=== PATIENT | female | born 1950 | race Caucasian/White ===

== ENCOUNTER 2016-07-16 12:18 | Inpatient (IN) | payer MEDICARE, BC ==
[~2016-07-16] VITALS: Ht 162.6 cm; Wt 111.2 kg
[2016-07-16] MEDS: IPRATRPIUM/ALBUTEROL 0.5/2.5MG 3 ML NEBU. NEB SCH ×3 (12:00→20:01)
[~2016-07-16 12:18] MED LIST: ACET325T9 PO; ALBU1.25 NEB; ALBU8.5H8 INH; ARIP20TA5 PO; ARIP2TAB35 PO; ARIP5TAB13 PO; ASCO500C PO; ASPI-630 PO; ATOR10TA PO; BREO ELLIPTA PO; BRINTELLIX 20 MG PO; CALC1TAB21 PO; CEFU250S PO; CHOL5000 PO; CIPR500T94 PO; CYAN10005 PO; CYCL-331 PO; DIAZ5TAB4 PO; DICL112S2 TP; DILANTIN PO; DULO60CA6 PO; EZET10TA18 PO; FAMO-63 PO; FLUT10.6 IH; FLUT100D IH; FLUT12AE IH; FLUT1BLS IH; FORM20VI IH; FORM20VI NEB; FURO40TA4 PO; GABA600T14 PO; GABA600T2 PO; HYDR-2762 PO; HYDR1TAB26 PO; HYDR40TA PO; IBUP400T18 PO; IODINE PO; MAG355OR17 PO; MAGN2400 PO; MECL25TA3 PO; METH10TA2 PO; METH29OI TP; MIRT15TA PO; MONT10TA6 PO; MONT10TA9 PO; PANT40TA3 PO; PHEN100C PO; PHEN50TA PO; POTA10TA31 PO; POTA20TA4 PO; PRAV20TA2 PO; PRED-220 PO; PRIM50TA PO; RABE20TA18 PO; SCOP1PAT TD; TRAM50TA PO; TRAZ50TA15 PO; UBID1CAP41 PO; VITA0.4T7 PO; ZOLP5TAB PO
[2016-07-16] MEDS: DOXYCYCLINE HYCLATE 100 MG TABLET PO SCH ×2 (12:45→20:45)
[2016-07-16 12:57] LABS: BASO % 1 % (0-3); EOS # 0.2 x10^3/uL (0.0-0.7); EOS % 4 % (0-3); HEMATOCRIT 37.3 % (36.0-47.0); HEMOGLOBIN 12.8 g/dL (12.0-15.5); LYMPH % 39 % (24-48); MEAN CORPUSCULAR HEMOGLOBIN 30 pg (25-35); MEAN CORPUSCULAR HGB CONC 34 g/dL (31-37); MEAN CORPUSCULAR VOLUME 88 fL (79-100); MONO # 0.5 x10^3/uL (0.0-1.1); MONO % 9 % (0-9); NEUT # 2.5 x10^3uL (1.8-7.7); NEUT % 47 % (31-73); PLATELET COUNT 134 x10^3/uL (140-400); RED BLOOD COUNT 4.24 x10^6/uL (3.50-5.40); RED CELL DISTRIBUTION WIDTH 15.7 % (11.5-14.5); WHITE BLOOD COUNT 5.2 x10^3/uL (4.0-11.0)
[2016-07-16] MEDS: methylPREDNISolone SOD SUCC PF 40 MG/ML VIAL. IV SCH ×2 (12:59→20:44)
[2016-07-16 13:10] LABS: ALBUMIN 3.5 g/dL (3.4-5.0); ALBUMIN/GLOBULIN RATIO 0.8 (1.0-1.7); CALCIUM 8.7 mg/dL (8.5-10.1); CREATININE 0.8 mg/dL (0.6-1.0); POTASSIUM 3.7 mmol/L (3.5-5.1); TOTAL BILIRUBIN 0.4 mg/dL (0.2-1.0); TOTAL PROTEIN 7.9 g/dL (6.4-8.2)
[2016-07-16 13:11] VITALS: BP 146/71
[2016-07-16 13:12] VITALS: BP 146/71
[2016-07-16] MEDS ORDERED: CYCLOBENZAPRINE 10 MG TABLET. PO PRN (13:15)
[2016-07-16] MEDS ORDERED: MECLIZINE 25 MG TABLET PO PRN (13:15)
[2016-07-16] MEDS ORDERED: ALBUTEROL SULFATE 8GM INHALER. INH PRN (13:15)
[2016-07-16 13:38] LABS: BACTERIA,URINE FEW /HPF (0-FEW); BILIRUBIN,URINE NEG (NEG); CLARITY,URINE HAZY; COLOR,URINE AMBER; GLUCOSE,URINE 100 mg/dL (NEG); NITRITE,URINE NEG (NEG); SQUAMOUS EPITHELIAL CELL,UR FEW /LPF; UROBILINOGEN,URINE 0.2 mg/dL (0.2 mg/dL)
[2016-07-16 13:41] LABS: BGAS PH 7.4 (7.35-7.45)
[2016-07-16] MEDS ORDERED: TIOT4MIS5 IH (13:44)
[2016-07-16] MEDS ORDERED: PRIMIDONE 50 MG TABLET PO SCH (14:00)
[2016-07-16] MEDS ORDERED: CALCIUM CARBONATE PO SCH (14:00)
[2016-07-16] MEDS ORDERED: SIMETHICONE PO SCH (14:00)
[2016-07-16] MEDS: HYDROcodone/APAP 7.5/325MG 1 TAB TABLET PO PRN (14:13)
[2016-07-16] MEDS ORDERED: ALBUTEROL SULFATE 2.5 MG/3 ML NEBU. NEB PRN (14:15)
[2016-07-16 14:56] VITALS: BP 146/71
--- NOTE | 2016-07-16 15:10 | RAD ---
EXAM: CHEST 1 VIEW History: Increased dyspnea Comparison: 01/17/2016 TECHNIQUE: Single portable radiograph of the chest FINDINGS: The cardiac silhouette is unremarkable. Minimal left lung base airspace opacity likely atelectasis or infiltrate. Impression: Minimal left lung base airspace opacity likely atelectasis or infiltrate.
[2016-07-16] MEDS: diazePAM 5 MG TABLET PO SCH ×2 (18:18→20:45)
[2016-07-16 18:44] VITALS: BP 124/66
[2016-07-16] MEDS: BUDESONIDE 0.5 MG/2 ML NEBU NEB SCH (20:01)
[2016-07-16] MEDS: GABAPENTIN 300 MG CAPSULE. PO SCH (20:45)
[2016-07-16] MEDS: PHENYTOIN SODIUM EXTENDED 100 MG CAPSULE PO SCH (20:45)
[2016-07-16] MEDS: MONTELUKAST 10 MG TABLET. PO SCH (20:46)
[2016-07-16] MEDS: POTASSIUM CHLORIDE 10 MEQ TABLET.ER. PO SCH (20:46)
[2016-07-16] MEDS: ARIPiprazole 5 MG TABLET PO SCH (20:46)
[2016-07-16] MEDS: PRIMIDONE 50 MG TABLET PO SCH (20:46)
[2016-07-16] MEDS: EZETIMIBE 10 MG TABLET PO SCH (20:46)
[2016-07-16] MEDS: MIRTAZAPINE 15 MG TABLET PO SCH (20:46)
[2016-07-16] MEDS ORDERED: FAMOTIDINE 20 MG TABLET PO SCH (21:00)
[2016-07-16] MEDS ORDERED: MIRTAZAPINE 15 MG TABLET PO SCH (21:00)
[2016-07-16] MEDS ORDERED: ZOLPIDEM 5 MG TABLET. PO SCH (21:00)
[2016-07-16] MEDS ORDERED: NON FORMULARY ITEM (Fluticasone Propionate (Flovent 110MCG Hfa) 2 PUFF) IH SCH (21:00)
[2016-07-16 23:21] VITALS: BP 117/83
[2016-07-17] MEDS: IPRATRPIUM/ALBUTEROL 0.5/2.5MG 3 ML NEBU. NEB SCH ×4 (05:09→20:18)
[2016-07-17] MEDS: methylPREDNISolone SOD SUCC PF 40 MG/ML VIAL. IV SCH ×3 (05:51→21:02)
[2016-07-17 06:15] VITALS: BP 111/70
[2016-07-17 06:48] LABS: BASO % 0 % (0-3); EOS % 1 % (0-3); HEMATOCRIT 36.5 % (36.0-47.0); HEMOGLOBIN 12.5 g/dL (12.0-15.5); LYMPH % 34 % (24-48); MEAN CORPUSCULAR HEMOGLOBIN 30 pg (25-35); MEAN CORPUSCULAR HGB CONC 34 g/dL (31-37); MEAN CORPUSCULAR VOLUME 88 fL (79-100); MONO # 0.4 x10^3/uL (0.0-1.1); MONO % 6 % (0-9); NEUT # 3.5 x10^3uL (1.8-7.7); NEUT % 59 % (31-73); PLATELET COUNT 132 x10^3/uL (140-400); RED BLOOD COUNT 4.14 x10^6/uL (3.50-5.40); RED CELL DISTRIBUTION WIDTH 16.4 % (11.5-14.5); WHITE BLOOD COUNT 5.9 x10^3/uL (4.0-11.0)
[2016-07-17 07:01] LABS: CALCIUM 8.8 mg/dL (8.5-10.1); CREATININE 0.8 mg/dL (0.6-1.0); POTASSIUM 3.8 mmol/L (3.5-5.1)
[2016-07-17] MEDS: HYDROcodone/APAP 7.5/325MG 1 TAB TABLET PO PRN ×3 (08:33→23:44)
[2016-07-17] MEDS: FUROSEMIDE 40 MG/4 ML VIAL IVP SCH (08:33)
[2016-07-17] MEDS: diazePAM 5 MG TABLET PO SCH ×4 (08:33→21:04)
[2016-07-17] MEDS: PANTOPRAZOLE 40 MG TABLET. PO SCH (08:34)
[2016-07-17] MEDS: ASPIRIN 81 MG TAB.CHEW PO SCH (08:34)
[2016-07-17] MEDS: POTASSIUM CHLORIDE 10 MEQ TABLET.ER. PO SCH ×2 (08:34→21:03)
[2016-07-17] MEDS: GABAPENTIN 300 MG CAPSULE. PO SCH ×3 (08:34→21:03)
[2016-07-17] MEDS: PRAVASTATIN 20 MG TABLET. PO SCH (08:34)
[2016-07-17] MEDS: DOXYCYCLINE HYCLATE 100 MG TABLET PO SCH (08:34)
[2016-07-17] MEDS: PRIMIDONE 50 MG TABLET PO SCH ×4 (08:34→21:04)
[2016-07-17] MEDS: DICLOFENAC SODIUM 1% TOPICAL GEL 100GM TUBE. TP SCH ×2 (08:35→21:03)
[2016-07-17] MEDS ORDERED: GABAPENTIN PO SCH (09:00)
[2016-07-17] MEDS ORDERED: NON FORMULARY ITEM (Fluticasone/Vilanterol (Breo Ellipta 200-25 Mcg INH) 1 PUFF) IH SCH (09:00)
[2016-07-17] MEDS ORDERED: MONTELUKAST 10 MG TABLET. PO SCH (09:00)
[2016-07-17] MEDS ORDERED: VORTIOXETINE PO SCH (09:00)
[2016-07-17] MEDS ORDERED: POTASSIUM CHLORIDE 20 MEQ TABLET.ER. PO SCH (09:00)
[2016-07-17] MEDS ORDERED: HYDROCODONE BITARTRATE 40 MG PO SCH (09:00)
[2016-07-17] MEDS ORDERED: ARIPiprazole 5 MG TABLET PO SCH (09:00)
[2016-07-17] MEDS ORDERED: EZETIMIBE 10 MG TABLET PO SCH (09:00)
[2016-07-17] MEDS: BUDESONIDE 0.5 MG/2 ML NEBU NEB SCH (09:42)
[2016-07-17] MEDS ORDERED: ENOXAPARIN 30 MG/0.3 ML DISP.SYRIN. SQ SCH ×2 (10:15→21:00)
[2016-07-17] MEDS ORDERED: IV NORMAL SALINE 250ML 250 ML ONE (10:32)
[2016-07-17 10:42] VITALS: BP 132/72
[2016-07-17] MEDS ORDERED: DEXTROSE 50% 25 GM / 50ML DISP.SYRIN. IV PRN (11:45)
[2016-07-17] MEDS: INSULIN ASPART 300 UNITS/3 ML INSULN.PEN SQ SCH ×3 (12:35→21:00)
[2016-07-17 15:35] VITALS: BP 126/63
[2016-07-17 18:54] VITALS: BP 118/67
[2016-07-17] MEDS ORDERED: BUDESONIDE 0.5 MG/2 ML NEBU ONE (20:13)
[2016-07-17] MEDS: EZETIMIBE 10 MG TABLET PO SCH (21:03)
[2016-07-17] MEDS: MIRTAZAPINE 15 MG TABLET PO SCH (21:03)
[2016-07-17] MEDS: PHENYTOIN SODIUM EXTENDED 100 MG CAPSULE PO SCH (21:03)
[2016-07-17] MEDS: ARIPiprazole 5 MG TABLET PO SCH (21:04)
[2016-07-17] MEDS: MONTELUKAST 10 MG TABLET. PO SCH (21:05)
[2016-07-17 22:52] VITALS: BP 112/65
--- NOTE | 2016-07-17 23:54 | PN ---
DATE: SUBJECTIVE: The patient is a 65-year-old female with exacerbation of COPD, possible pneumonia, right lower lobe. She is still very short of breath, wheezing quite a bit. She is on IV steroids. Sugars are starting to go up and she has been monitored on a sliding scale. D-dimer was unremarkable as was her UA. The patient's x-ray did show a pneumonic process in the right lower lobe. OBJECTIVE: GENERAL: Otherwise, the patient is alert and oriented. LUNGS: Diminished throughout with expiratory wheezes. CARDIOVASCULAR: Regular sinus rhythm. ABDOMEN: Protuberant. EXTREMITIES: No clubbing, cyanosis or edema. NEUROLOGIC: Intact. We will go ahead and make further evaluation on her as indicated. IMPRESSION: Pneumonia, exacerbation of chronic obstructive pulmonary disease and morbid obesity. PLAN: As above, continue to monitor the patient, accordingly make further IV antibiotic therapy and alike. She also had positive lactic acids ____. She is on Rocephin and Levaquin for that and we will continue to monitor her carefully along with her vital signs. SCOOTER HOPKINS MD DR: NGOZI/elisa JOB#: [id number] / [id number]
[2016-07-18 05:07] VITALS: BP 133/81
[2016-07-18] MEDS: methylPREDNISolone SOD SUCC PF 40 MG/ML VIAL. IV SCH ×2 (05:19→20:45)
[2016-07-18] MEDS: IPRATRPIUM/ALBUTEROL 0.5/2.5MG 3 ML NEBU. NEB SCH ×4 (05:44→20:29)
[2016-07-18 06:21] LABS: BASO % 0 % (0-3); EOS # 0.1 x10^3/uL (0.0-0.7); EOS % 1 % (0-3); HEMATOCRIT 38.3 % (36.0-47.0); HEMOGLOBIN 13.1 g/dL (12.0-15.5); LYMPH # 2.2 x10^3/uL (1.0-4.8); LYMPH % 32 % (24-48); MEAN CORPUSCULAR HEMOGLOBIN 31 pg (25-35); MEAN CORPUSCULAR HGB CONC 34 g/dL (31-37); MEAN CORPUSCULAR VOLUME 90 fL (79-100); MONO # 0.3 x10^3/uL (0.0-1.1); MONO % 5 % (0-9); NEUT # 4.1 x10^3uL (1.8-7.7); NEUT % 61 % (31-73); PLATELET COUNT 128 x10^3/uL (140-400); RED BLOOD COUNT 4.25 x10^6/uL (3.50-5.40); RED CELL DISTRIBUTION WIDTH 16.4 % (11.5-14.5); WHITE BLOOD COUNT 6.7 x10^3/uL (4.0-11.0)
[2016-07-18 06:30] LABS: CALCIUM 8.6 mg/dL (8.5-10.1); CREATININE 0.8 mg/dL (0.6-1.0); POTASSIUM 4.4 mmol/L (3.5-5.1)
[2016-07-18] MEDS: DICLOFENAC SODIUM 1% TOPICAL GEL 100GM TUBE. TP SCH ×2 (08:15→20:48)
[2016-07-18] MEDS: FUROSEMIDE 40 MG/4 ML VIAL IVP SCH (08:16)
[2016-07-18] MEDS: diazePAM 5 MG TABLET PO SCH ×4 (08:17→20:46)
[2016-07-18] MEDS: GABAPENTIN 300 MG CAPSULE. PO SCH ×3 (08:18→20:46)
[2016-07-18] MEDS: ASPIRIN 81 MG TAB.CHEW PO SCH (08:18)
[2016-07-18] MEDS: PANTOPRAZOLE 40 MG TABLET. PO SCH (08:18)
[2016-07-18] MEDS: POTASSIUM CHLORIDE 10 MEQ TABLET.ER. PO SCH ×2 (08:18→20:46)
[2016-07-18] MEDS: PRAVASTATIN 20 MG TABLET. PO SCH (08:19)
[2016-07-18] MEDS: PRIMIDONE 50 MG TABLET PO SCH ×4 (08:19→20:46)
[2016-07-18] MEDS: INSULIN ASPART 300 UNITS/3 ML INSULN.PEN SQ SCH ×4 (08:25→20:49)
[2016-07-18] MEDS ORDERED: BUDESONIDE 0.5 MG/2 ML NEBU ONE (09:36)
[2016-07-18 10:48] VITALS: BP 136/73
[2016-07-18] MEDS: levoFLOXacin 500 MG TABLET PO SCH (10:54)
[2016-07-18 13:30] VITALS: BP 127/92
[2016-07-18 14:43] VITALS: BP 120/71
[2016-07-18 17:28] VITALS: BP 117/72
[2016-07-18 20:34] VITALS: BP 128/80
[2016-07-18] MEDS: MONTELUKAST 10 MG TABLET. PO SCH (20:46)
[2016-07-18] MEDS: PHENYTOIN SODIUM EXTENDED 100 MG CAPSULE PO SCH (20:46)
[2016-07-18] MEDS: EZETIMIBE 10 MG TABLET PO SCH (20:47)
[2016-07-18] MEDS: MIRTAZAPINE 15 MG TABLET PO SCH (20:47)
[2016-07-18] MEDS: ARIPiprazole 5 MG TABLET PO SCH (20:47)
--- NOTE | 2016-07-18 23:10 | PN ---
DATE: SUBJECTIVE: The patient is in with pneumonia and exacerbation of COPD, is resting fairly comfortably, making fairly good progress, feels better. OBJECTIVE: VITAL SIGNS: Blood pressure 136/70, respiratory rate 20, pulse 90 and afebrile. GENERAL: The patient is alert and oriented x 3. Speech fluent, spontaneous, appropriate. Cranial nerves 2-12 grossly intact. LUNGS: Diminished throughout, some coarse breath sounds, but markedly improved. CARDIOVASCULAR: Regular sinus rhythm, S1, S2. ABDOMEN: Soft, nontender, protuberant. EXTREMITIES: No clubbing, cyanosis. Trace edema. NEUROLOGIC: Intact. PLAN: We will taper down on Solu-Medrol. We will continue on IV antibiotic therapy. IMPRESSION: Sepsis, pneumonia, exacerbation of chronic obstructive pulmonary disease, acute respiratory failure, hypoxia, type 2 diabetes exacerbated with steroids. SCOOTER HOPKINS MD DR: NGOZI/elisa JOB#: [id number] / [id number]
[2016-07-19] MEDS: HYDROcodone/APAP 7.5/325MG 1 TAB TABLET PO PRN (00:39)
[2016-07-19] MEDS: IPRATRPIUM/ALBUTEROL 0.5/2.5MG 3 ML NEBU. NEB SCH ×2 (06:12→09:54)
[2016-07-19 06:26] VITALS: BP 108/64
[2016-07-19] MEDS: INSULIN ASPART 300 UNITS/3 ML INSULN.PEN SQ SCH (07:30)
[2016-07-19] MEDS ORDERED: PRED20TA PO (08:57)
[2016-07-19] MEDS ORDERED: LEVO500T59 PO (08:57)
[2016-07-19] MEDS ORDERED: ALBU2.5V5 NEB (08:57)
[2016-07-19] MEDS ORDERED: FURO10VI42 PO (08:57)
[2016-07-19] MEDS ORDERED: INSU100I17 SQ (08:57)
[2016-07-19] MEDS: DICLOFENAC SODIUM 1% TOPICAL GEL 100GM TUBE. TP SCH (09:00)
[2016-07-19] MEDS ORDERED: SCOPOLAMINE 1.5MG PATCH. TD SCH (09:00)
[2016-07-19] MEDS: GABAPENTIN 300 MG CAPSULE. PO SCH (09:18)
[2016-07-19] MEDS: PRAVASTATIN 20 MG TABLET. PO SCH (09:19)
[2016-07-19] MEDS: levoFLOXacin 500 MG TABLET PO SCH (09:19)
[2016-07-19] MEDS: POTASSIUM CHLORIDE 10 MEQ TABLET.ER. PO SCH (09:19)
[2016-07-19] MEDS: ASPIRIN 81 MG TAB.CHEW PO SCH (09:19)
[2016-07-19] MEDS: PANTOPRAZOLE 40 MG TABLET. PO SCH (09:19)
[2016-07-19] MEDS: diazePAM 5 MG TABLET PO SCH (09:20)
[2016-07-19] MEDS: PRIMIDONE 50 MG TABLET PO SCH (09:26)
[2016-07-19] MEDS: FUROSEMIDE 40 MG/4 ML VIAL IVP SCH (09:35)
[2016-07-19] MEDS: methylPREDNISolone SOD SUCC PF 40 MG/ML VIAL. IV SCH (09:35)
[2016-07-19 10:39] VITALS: BP 158/74
[2016-07-19] MEDS ORDERED: VORT10TA PO (16:36)
== END 2016-07-19 10:43 | DRG 871 ==
LOC: 1 SOUTH 12:24
PROVIDERS: ADMIT Family Medicine; ATTEND Family Medicine
PROC: 5A09357 Assistance with Respiratory Ventilation, Less than 24 Consecutive Hours, Continuous Positive Airway Pressure (ICD-10-PCS; principal; 2016-07-18)
DX: A41.9 Sepsis, unspecified organism (principal); J18.9 Pneumonia, unspecified organism; J96.01 Acute respiratory failure with hypoxia; J44.0 Chronic obstructive pulmonary disease with (acute) lower respiratory infection; J44.1 Chronic obstructive pulmonary disease with (acute) exacerbation; E11.9 Type 2 diabetes mellitus without complications; E66.01 Morbid (severe) obesity due to excess calories; E78.5 Hyperlipidemia, unspecified; M81.0 Age-related osteoporosis without current pathological fracture; J44.9 Chronic obstructive pulmonary disease, unspecified; K21.9 Gastro-esophageal reflux disease without esophagitis; F32.9 Major depressive disorder, single episode, unspecified; F41.9 Anxiety disorder, unspecified; G89.29 Other chronic pain; Z90.710 Acquired absence of both cervix and uterus; Z88.1 Allergy status to other antibiotic agents; Z88.0 Allergy status to penicillin; Z88.2 Allergy status to sulfonamides; Z88.8 Allergy status to other drugs, medicaments and biological substances
CPT/HCPCS: 36415; 36600; 71010; 80048; 80053; 81001; 82550; 82803; 82947; 83605; 83880; 84484; 85027; 85379; 87070; 87086; 94640; 94760; J0696; J1815; J1940; J2920; J7050; J7613; J7620; J7626; 97110; 97530

== ENCOUNTER 2016-07-19 08:45 | Inpatient (IN) | payer MEDICARE, BC ==
[~2016-07-19] VITALS: Ht 162.6 cm; Wt 110.0 kg
[~2016-07-19 08:45] MED LIST changes: +TIOT4MIS5 IH
[2016-07-19] MEDS ORDERED: PRED20TA PO (08:57)
[2016-07-19] MEDS ORDERED: INSU100I17 SQ (08:57)
[2016-07-19] MEDS ORDERED: ALBU2.5V5 NEB (08:57)
[2016-07-19] MEDS ORDERED: LEVO500T59 PO (08:57)
[2016-07-19] MEDS ORDERED: FURO10VI42 PO (08:57)
[2016-07-19 11:15] VITALS: BP 145/79
[2016-07-19] MEDS ORDERED: ALBUTEROL SULFATE 8GM INHALER. INH PRN (14:45)
[2016-07-19] MEDS ORDERED: MECLIZINE 25 MG TABLET PO PRN (14:45)
[2016-07-19] MEDS ORDERED: ALBUTEROL SULFATE 2.5 MG/3 ML NEBU. NEB PRN (14:45)
[2016-07-19 15:59] VITALS: BP 151/79
[2016-07-19] MEDS ORDERED: DEXTROSE 50% 25 GM / 50ML DISP.SYRIN. IV PRN (16:00)
[2016-07-19] MEDS ORDERED: INSULIN ASPART 300 UNITS/3 ML INSULN.PEN SQ SCH (16:30)
[2016-07-19] MEDS ORDERED: VORT10TA PO (16:36)
[2016-07-19] MEDS: PRIMIDONE 50 MG TABLET PO SCH ×2 (16:51→20:58)
[2016-07-19] MEDS: diazePAM 5 MG TABLET PO SCH ×2 (16:51→19:52)
[2016-07-19] MEDS: INSULIN ASPART 300 UNITS/3 ML INSULN.PEN SQ SCH ×2 (17:07→19:46)
[2016-07-19] MEDS: NON FORMULARY ITEM (Vortioxetine Hydrobromide (Trintellix) 10 MG) PO SCH (18:23)
[2016-07-19 19:08] VITALS: BP 142/87
[2016-07-19] MEDS: MONTELUKAST 10 MG TABLET. PO SCH (19:49)
[2016-07-19] MEDS: MIRTAZAPINE 15 MG TABLET PO SCH (19:49)
[2016-07-19] MEDS: GABAPENTIN 300 MG CAPSULE. PO SCH (19:49)
[2016-07-19] MEDS: PHENYTOIN SODIUM EXTENDED 100 MG CAPSULE PO SCH (19:50)
[2016-07-19] MEDS: HYDROcodone/APAP 7.5/325MG 1 TAB TABLET PO PRN (19:51)
[2016-07-19] MEDS: EZETIMIBE 10 MG TABLET PO SCH (19:51)
[2016-07-19] MEDS: ARIPiprazole 5 MG TABLET PO SCH (19:51)
[2016-07-19] MEDS: POTASSIUM CHLORIDE 10 MEQ TABLET.ER. PO SCH (19:51)
[2016-07-19] MEDS: BUDESONIDE 0.5 MG/2 ML NEBU NEB SCH (20:53)
[2016-07-19] MEDS ORDERED: NON FORMULARY ITEM (Fluticasone Propionate (Flovent 110MCG Hfa) 2 PUFF) IH SCH (21:00)
[2016-07-20 06:04] VITALS: BP 135/81
[2016-07-20] MEDS: BUDESONIDE 0.5 MG/2 ML NEBU NEB SCH ×2 (07:53→21:06)
[2016-07-20] MEDS: INSULIN ASPART 300 UNITS/3 ML INSULN.PEN SQ SCH ×4 (08:04→19:43)
[2016-07-20] MEDS: PRAVASTATIN 20 MG TABLET. PO SCH (08:25)
[2016-07-20] MEDS: POTASSIUM CHLORIDE 10 MEQ TABLET.ER. PO SCH ×2 (08:25→19:40)
[2016-07-20] MEDS: diazePAM 5 MG TABLET PO SCH ×4 (08:25→19:40)
[2016-07-20] MEDS: FUROSEMIDE 40 MG TABLET PO SCH (08:25)
[2016-07-20] MEDS: predniSONE 5 MG TABLET PO SCH (08:25)
[2016-07-20] MEDS: levoFLOXacin 500 MG TABLET PO SCH (08:25)
[2016-07-20] MEDS: PANTOPRAZOLE 40 MG TABLET. PO SCH (08:25)
[2016-07-20] MEDS: GABAPENTIN 300 MG CAPSULE. PO SCH ×3 (08:25→19:40)
[2016-07-20] MEDS: ASPIRIN 81 MG TAB.CHEW PO SCH (08:25)
[2016-07-20] MEDS: NON FORMULARY ITEM (Vortioxetine Hydrobromide (Trintellix) 10 MG) PO SCH (08:26)
[2016-07-20] MEDS: PRIMIDONE 50 MG TABLET PO SCH ×4 (08:27→19:42)
[2016-07-20] MEDS: DICLOFENAC SODIUM 1% TOPICAL GEL 100GM TUBE. TP SCH ×2 (08:27→19:38)
[2016-07-20] MEDS ORDERED: HYDROCODONE BITARTRATE 40 MG PO SCH (09:00)
[2016-07-20] MEDS ORDERED: NON FORMULARY ITEM (Vortioxetine Hydrobromide (Trintellix) 10 MG) PO SCH (09:00)
[2016-07-20] MEDS: FLUCONAZOLE 100 MG TABLET. PO SCH (12:04)
[2016-07-20] MEDS: IPRATRPIUM/ALBUTEROL 0.5/2.5MG 3 ML NEBU. NEB SCH ×2 (17:48→21:06)
[2016-07-20 19:36] VITALS: BP 119/64
[2016-07-20] MEDS: EZETIMIBE 10 MG TABLET PO SCH (19:39)
[2016-07-20] MEDS: MIRTAZAPINE 15 MG TABLET PO SCH (19:40)
[2016-07-20] MEDS: MONTELUKAST 10 MG TABLET. PO SCH (19:40)
[2016-07-20] MEDS: ARIPiprazole 5 MG TABLET PO SCH (19:40)
[2016-07-20] MEDS: HYDROcodone/APAP 7.5/325MG 1 TAB TABLET PO PRN (19:41)
[2016-07-20] MEDS: PHENYTOIN SODIUM EXTENDED 100 MG CAPSULE PO SCH (19:42)
[2016-07-21] MEDS: IPRATRPIUM/ALBUTEROL 0.5/2.5MG 3 ML NEBU. NEB SCH ×4 (05:48→20:13)
[2016-07-21 06:21] VITALS: BP 104/63
[2016-07-21] MEDS: INSULIN ASPART 300 UNITS/3 ML INSULN.PEN SQ SCH ×4 (07:30→19:57)
[2016-07-21] MEDS: PANTOPRAZOLE 40 MG TABLET. PO SCH (08:41)
[2016-07-21] MEDS: GABAPENTIN 300 MG CAPSULE. PO SCH ×3 (08:42→19:51)
[2016-07-21] MEDS: predniSONE 5 MG TABLET PO SCH (08:42)
[2016-07-21] MEDS: levoFLOXacin 500 MG TABLET PO SCH (08:43)
[2016-07-21] MEDS: diazePAM 5 MG TABLET PO SCH ×4 (08:43→19:51)
[2016-07-21] MEDS: FLUCONAZOLE 100 MG TABLET. PO SCH (08:43)
[2016-07-21] MEDS: POTASSIUM CHLORIDE 10 MEQ TABLET.ER. PO SCH ×2 (08:44→19:52)
[2016-07-21] MEDS: PRAVASTATIN 20 MG TABLET. PO SCH (08:44)
[2016-07-21] MEDS: ASPIRIN 81 MG TAB.CHEW PO SCH (08:44)
[2016-07-21] MEDS: NON FORMULARY ITEM (Vortioxetine Hydrobromide (Trintellix) 10 MG) PO SCH (08:45)
[2016-07-21] MEDS: FUROSEMIDE 40 MG TABLET PO SCH (08:45)
[2016-07-21] MEDS: PRIMIDONE 50 MG TABLET PO SCH ×4 (08:48→19:53)
[2016-07-21] MEDS: DICLOFENAC SODIUM 1% TOPICAL GEL 100GM TUBE. TP SCH ×2 (09:00→19:53)
[2016-07-21 11:06] VITALS: BP 114/74
[2016-07-21] MEDS: BUDESONIDE 0.5 MG/2 ML NEBU NEB SCH ×2 (11:17→20:13)
[2016-07-21] MEDS: HYDROcodone/APAP 7.5/325MG 1 TAB TABLET PO PRN (12:39)
[2016-07-21 19:01] VITALS: BP 116/74
[2016-07-21] MEDS: MIRTAZAPINE 15 MG TABLET PO SCH (19:51)
[2016-07-21] MEDS: ARIPiprazole 5 MG TABLET PO SCH (19:52)
[2016-07-21] MEDS: MONTELUKAST 10 MG TABLET. PO SCH (19:52)
[2016-07-21] MEDS: EZETIMIBE 10 MG TABLET PO SCH (19:52)
[2016-07-21] MEDS: PHENYTOIN SODIUM EXTENDED 100 MG CAPSULE PO SCH (19:52)
[2016-07-22] MEDS: IPRATRPIUM/ALBUTEROL 0.5/2.5MG 3 ML NEBU. NEB SCH ×4 (05:55→20:55)
[2016-07-22 05:59] VITALS: BP 125/68
[2016-07-22] MEDS: INSULIN ASPART 300 UNITS/3 ML INSULN.PEN SQ SCH ×4 (07:30→19:42)
[2016-07-22] MEDS: diazePAM 5 MG TABLET PO SCH ×4 (08:01→19:36)
[2016-07-22] MEDS: PANTOPRAZOLE 40 MG TABLET. PO SCH (08:01)
[2016-07-22] MEDS: NON FORMULARY ITEM (Vortioxetine Hydrobromide (Trintellix) 10 MG) PO SCH (09:00)
[2016-07-22] MEDS: DICLOFENAC SODIUM 1% TOPICAL GEL 100GM TUBE. TP SCH ×2 (09:00→19:38)
[2016-07-22] MEDS: PRIMIDONE 50 MG TABLET PO SCH ×4 (09:04→19:38)
[2016-07-22] MEDS: GABAPENTIN 300 MG CAPSULE. PO SCH ×3 (09:05→19:34)
[2016-07-22] MEDS: predniSONE 5 MG TABLET PO SCH (09:05)
[2016-07-22] MEDS: ASPIRIN 81 MG TAB.CHEW PO SCH (09:06)
[2016-07-22] MEDS: FLUCONAZOLE 100 MG TABLET. PO SCH (09:06)
[2016-07-22] MEDS: levoFLOXacin 500 MG TABLET PO SCH (09:06)
[2016-07-22] MEDS: POTASSIUM CHLORIDE 10 MEQ TABLET.ER. PO SCH ×2 (09:06→19:37)
[2016-07-22] MEDS: FUROSEMIDE 40 MG TABLET PO SCH (09:06)
[2016-07-22] MEDS: PRAVASTATIN 20 MG TABLET. PO SCH (09:06)
[2016-07-22] MEDS: BUDESONIDE 0.5 MG/2 ML NEBU NEB SCH ×2 (11:27→20:55)
[2016-07-22 19:04] VITALS: BP 109/69
[2016-07-22] MEDS ORDERED: SODIUM CHLORIDE 0.65% NASAL SPRAY 45ML BOTTLE. NS PRN (19:30)
[2016-07-22] MEDS: EZETIMIBE 10 MG TABLET PO SCH (19:36)
[2016-07-22] MEDS: MONTELUKAST 10 MG TABLET. PO SCH (19:36)
[2016-07-22] MEDS: MIRTAZAPINE 15 MG TABLET PO SCH (19:36)
[2016-07-22] MEDS: PHENYTOIN SODIUM EXTENDED 100 MG CAPSULE PO SCH (19:37)
[2016-07-22] MEDS: ARIPiprazole 5 MG TABLET PO SCH (19:37)
[2016-07-23] MEDS: IPRATRPIUM/ALBUTEROL 0.5/2.5MG 3 ML NEBU. NEB SCH ×4 (05:35→20:38)
[2016-07-23 05:36] VITALS: BP 148/82
[2016-07-23] MEDS: INSULIN ASPART 300 UNITS/3 ML INSULN.PEN SQ SCH ×4 (07:30→19:37)
[2016-07-23] MEDS: PANTOPRAZOLE 40 MG TABLET. PO SCH (08:26)
[2016-07-23] MEDS: FLUCONAZOLE 100 MG TABLET. PO SCH (08:26)
[2016-07-23] MEDS: levoFLOXacin 500 MG TABLET PO SCH (08:26)
[2016-07-23] MEDS: POTASSIUM CHLORIDE 10 MEQ TABLET.ER. PO SCH ×2 (08:26→19:36)
[2016-07-23] MEDS: PRAVASTATIN 20 MG TABLET. PO SCH (08:27)
[2016-07-23] MEDS: ASPIRIN 81 MG TAB.CHEW PO SCH (08:27)
[2016-07-23] MEDS: FUROSEMIDE 40 MG TABLET PO SCH (08:27)
[2016-07-23] MEDS: predniSONE 5 MG TABLET PO SCH (08:27)
[2016-07-23] MEDS: diazePAM 5 MG TABLET PO SCH ×4 (08:27→19:36)
[2016-07-23] MEDS: GABAPENTIN 300 MG CAPSULE. PO SCH ×3 (08:27→19:35)
[2016-07-23] MEDS: NON FORMULARY ITEM (Vortioxetine Hydrobromide (Trintellix) 10 MG) PO SCH (08:28)
[2016-07-23] MEDS: DICLOFENAC SODIUM 1% TOPICAL GEL 100GM TUBE. TP SCH ×2 (08:28→19:35)
[2016-07-23] MEDS: PRIMIDONE 50 MG TABLET PO SCH ×4 (08:28→19:36)
[2016-07-23] MEDS: NYSTATIN TOPICAL POWDER 15GM BOTTLE. TP PRN ×2 (11:09→19:35)
[2016-07-23] MEDS: BUDESONIDE 0.5 MG/2 ML NEBU NEB SCH ×2 (13:05→20:38)
[2016-07-23] MEDS: HYDROcodone/APAP 7.5/325MG 1 TAB TABLET PO PRN (16:54)
[2016-07-23 17:48] VITALS: BP 147/76
[2016-07-23] MEDS: PHENYTOIN SODIUM EXTENDED 100 MG CAPSULE PO SCH (19:35)
[2016-07-23] MEDS: EZETIMIBE 10 MG TABLET PO SCH (19:36)
[2016-07-23] MEDS: ARIPiprazole 5 MG TABLET PO SCH (19:36)
[2016-07-23] MEDS: MONTELUKAST 10 MG TABLET. PO SCH (19:36)
[2016-07-23] MEDS: MIRTAZAPINE 15 MG TABLET PO SCH (19:36)
[2016-07-24] MEDS: IPRATRPIUM/ALBUTEROL 0.5/2.5MG 3 ML NEBU. NEB SCH ×4 (05:35→20:27)
[2016-07-24 06:19] VITALS: BP 145/77
[2016-07-24] MEDS: INSULIN ASPART 300 UNITS/3 ML INSULN.PEN SQ SCH ×4 (07:24→20:03)
[2016-07-24] MEDS: NON FORMULARY ITEM (Vortioxetine Hydrobromide (Trintellix) 10 MG) PO SCH (08:29)
[2016-07-24] MEDS: PRIMIDONE 50 MG TABLET PO SCH ×4 (08:30→19:52)
[2016-07-24] MEDS: GABAPENTIN 300 MG CAPSULE. PO SCH ×3 (08:31→19:52)
[2016-07-24] MEDS: PANTOPRAZOLE 40 MG TABLET. PO SCH ×2 (08:32→12:18)
[2016-07-24] MEDS: predniSONE 5 MG TABLET PO SCH (08:32)
[2016-07-24] MEDS: PRAVASTATIN 20 MG TABLET. PO SCH (08:32)
[2016-07-24] MEDS: FUROSEMIDE 40 MG TABLET PO SCH (08:32)
[2016-07-24] MEDS: diazePAM 5 MG TABLET PO SCH ×4 (08:32→19:53)
[2016-07-24] MEDS: POTASSIUM CHLORIDE 10 MEQ TABLET.ER. PO SCH ×2 (08:33→19:52)
[2016-07-24] MEDS: FLUCONAZOLE 100 MG TABLET. PO SCH (08:33)
[2016-07-24] MEDS: ASPIRIN 81 MG TAB.CHEW PO SCH (08:33)
[2016-07-24] MEDS: DICLOFENAC SODIUM 1% TOPICAL GEL 100GM TUBE. TP SCH ×2 (08:34→20:04)
[2016-07-24 08:42] VITALS: BP 124/61
[2016-07-24] MEDS: BUDESONIDE 0.5 MG/2 ML NEBU NEB SCH ×2 (10:26→20:28)
[2016-07-24] MEDS: HYDROcodone/APAP 7.5/325MG 1 TAB TABLET PO PRN (12:56)
[2016-07-24 18:52] VITALS: BP 134/72
[2016-07-24] MEDS: ARIPiprazole 5 MG TABLET PO SCH (19:51)
[2016-07-24] MEDS: PHENYTOIN SODIUM EXTENDED 100 MG CAPSULE PO SCH (19:51)
[2016-07-24] MEDS: MIRTAZAPINE 15 MG TABLET PO SCH (19:52)
[2016-07-24] MEDS: EZETIMIBE 10 MG TABLET PO SCH (19:53)
[2016-07-24] MEDS: MONTELUKAST 10 MG TABLET. PO SCH (19:53)
[2016-07-25 05:30] VITALS: BP 149/80
[2016-07-25] MEDS: IPRATRPIUM/ALBUTEROL 0.5/2.5MG 3 ML NEBU. NEB SCH ×4 (05:56→20:37)
[2016-07-25] MEDS: INSULIN ASPART 300 UNITS/3 ML INSULN.PEN SQ SCH ×4 (07:30→20:08)
[2016-07-25] MEDS: NON FORMULARY ITEM (Vortioxetine Hydrobromide (Trintellix) 10 MG) PO SCH (08:11)
[2016-07-25] MEDS: diazePAM 5 MG TABLET PO SCH ×4 (08:11→20:00)
[2016-07-25] MEDS: ASPIRIN 81 MG TAB.CHEW PO SCH (08:12)
[2016-07-25] MEDS: FLUCONAZOLE 100 MG TABLET. PO SCH (08:12)
[2016-07-25] MEDS: FUROSEMIDE 40 MG TABLET PO SCH (08:13)
[2016-07-25] MEDS: POTASSIUM CHLORIDE 10 MEQ TABLET.ER. PO SCH ×2 (08:13→19:59)
[2016-07-25] MEDS: PRAVASTATIN 20 MG TABLET. PO SCH (08:13)
[2016-07-25] MEDS: PRIMIDONE 50 MG TABLET PO SCH ×4 (08:14→19:59)
[2016-07-25] MEDS: GABAPENTIN 300 MG CAPSULE. PO SCH ×3 (08:15→19:59)
[2016-07-25] MEDS: predniSONE 5 MG TABLET PO SCH (08:15)
[2016-07-25] MEDS: BUDESONIDE 0.5 MG/2 ML NEBU NEB SCH ×2 (09:23→20:37)
[2016-07-25] MEDS: NYSTATIN TOPICAL POWDER 15GM BOTTLE. TP PRN (09:44)
[2016-07-25] MEDS: DICLOFENAC SODIUM 1% TOPICAL GEL 100GM TUBE. TP SCH ×2 (09:45→20:10)
[2016-07-25 10:07] VITALS: BP 124/72
[2016-07-25 19:07] VITALS: BP 144/85
[2016-07-25] MEDS: MIRTAZAPINE 15 MG TABLET PO SCH (19:58)
[2016-07-25] MEDS: ARIPiprazole 5 MG TABLET PO SCH (19:58)
[2016-07-25] MEDS: PHENYTOIN SODIUM EXTENDED 100 MG CAPSULE PO SCH (19:58)
[2016-07-25] MEDS: EZETIMIBE 10 MG TABLET PO SCH (19:59)
[2016-07-25] MEDS: MONTELUKAST 10 MG TABLET. PO SCH (19:59)
[2016-07-26] MEDS: IPRATRPIUM/ALBUTEROL 0.5/2.5MG 3 ML NEBU. NEB SCH ×4 (05:48→20:00)
[2016-07-26 06:05] VITALS: BP 117/74
[2016-07-26] MEDS: INSULIN ASPART 300 UNITS/3 ML INSULN.PEN SQ SCH ×4 (07:30→19:40)
[2016-07-26] MEDS: PANTOPRAZOLE 40 MG TABLET. PO SCH (08:10)
[2016-07-26] MEDS: NON FORMULARY ITEM (Vortioxetine Hydrobromide (Trintellix) 10 MG) PO SCH (08:11)
[2016-07-26] MEDS: diazePAM 5 MG TABLET PO SCH ×4 (08:11→19:31)
[2016-07-26] MEDS: ASPIRIN 81 MG TAB.CHEW PO SCH (08:12)
[2016-07-26] MEDS: FLUCONAZOLE 100 MG TABLET. PO SCH (08:12)
[2016-07-26] MEDS: PRIMIDONE 50 MG TABLET PO SCH ×4 (08:13→19:33)
[2016-07-26] MEDS: POTASSIUM CHLORIDE 10 MEQ TABLET.ER. PO SCH ×2 (08:13→19:31)
[2016-07-26] MEDS: FUROSEMIDE 40 MG TABLET PO SCH (08:13)
[2016-07-26] MEDS: predniSONE 5 MG TABLET PO SCH (08:14)
[2016-07-26] MEDS: GABAPENTIN 300 MG CAPSULE. PO SCH ×3 (08:14→19:31)
[2016-07-26] MEDS: PRAVASTATIN 20 MG TABLET. PO SCH (08:14)
[2016-07-26] MEDS: DICLOFENAC SODIUM 1% TOPICAL GEL 100GM TUBE. TP SCH ×2 (08:16→19:30)
[2016-07-26] MEDS: BUDESONIDE 0.5 MG/2 ML NEBU NEB SCH ×2 (12:50→20:00)
[2016-07-26 17:50] VITALS: BP 139/80
[2016-07-26] MEDS: NYSTATIN TOPICAL POWDER 15GM BOTTLE. TP PRN (19:30)
[2016-07-26] MEDS: PHENYTOIN SODIUM EXTENDED 100 MG CAPSULE PO SCH (19:30)
[2016-07-26] MEDS: ARIPiprazole 5 MG TABLET PO SCH (19:31)
[2016-07-26] MEDS: EZETIMIBE 10 MG TABLET PO SCH (19:31)
[2016-07-26] MEDS: MONTELUKAST 10 MG TABLET. PO SCH (19:31)
[2016-07-26] MEDS: MIRTAZAPINE 15 MG TABLET PO SCH (19:32)
[2016-07-27 06:01] VITALS: BP 139/72
[2016-07-27] MEDS: IPRATRPIUM/ALBUTEROL 0.5/2.5MG 3 ML NEBU. NEB SCH ×4 (06:01→20:10)
[2016-07-27] MEDS: INSULIN ASPART 300 UNITS/3 ML INSULN.PEN SQ SCH ×4 (07:30→22:08)
[2016-07-27] MEDS: FUROSEMIDE 40 MG TABLET PO SCH (07:59)
[2016-07-27] MEDS: ASPIRIN 81 MG TAB.CHEW PO SCH (07:59)
[2016-07-27] MEDS: predniSONE 5 MG TABLET PO SCH (07:59)
[2016-07-27] MEDS: PANTOPRAZOLE 40 MG TABLET. PO SCH (08:00)
[2016-07-27] MEDS: diazePAM 5 MG TABLET PO SCH ×4 (08:00→22:02)
[2016-07-27] MEDS: PRIMIDONE 50 MG TABLET PO SCH ×4 (08:01→22:01)
[2016-07-27] MEDS: FLUCONAZOLE 100 MG TABLET. PO SCH (08:01)
[2016-07-27] MEDS: GABAPENTIN 300 MG CAPSULE. PO SCH ×3 (08:01→22:01)
[2016-07-27] MEDS: NON FORMULARY ITEM (Vortioxetine Hydrobromide (Trintellix) 10 MG) PO SCH (08:01)
[2016-07-27] MEDS: PRAVASTATIN 20 MG TABLET. PO SCH (08:01)
[2016-07-27] MEDS: POTASSIUM CHLORIDE 10 MEQ TABLET.ER. PO SCH ×2 (08:01→22:00)
[2016-07-27] MEDS: DICLOFENAC SODIUM 1% TOPICAL GEL 100GM TUBE. TP SCH ×2 (08:02→22:02)
[2016-07-27 10:00] VITALS: BP 124/79
[2016-07-27] MEDS: BUDESONIDE 0.5 MG/2 ML NEBU NEB SCH ×2 (11:15→20:10)
[2016-07-27 18:06] VITALS: BP 116/73
[2016-07-27] MEDS: MONTELUKAST 10 MG TABLET. PO SCH (22:01)
[2016-07-27] MEDS: PHENYTOIN SODIUM EXTENDED 100 MG CAPSULE PO SCH (22:01)
[2016-07-27] MEDS: ARIPiprazole 5 MG TABLET PO SCH (22:01)
[2016-07-27] MEDS: EZETIMIBE 10 MG TABLET PO SCH (22:01)
[2016-07-27] MEDS: MIRTAZAPINE 15 MG TABLET PO SCH (22:01)
[2016-07-28] MEDS: IPRATRPIUM/ALBUTEROL 0.5/2.5MG 3 ML NEBU. NEB SCH ×4 (05:39→20:18)
[2016-07-28 06:15] VITALS: BP 133/78
[2016-07-28] MEDS: diazePAM 5 MG TABLET PO SCH ×4 (07:40→20:32)
[2016-07-28] MEDS: PANTOPRAZOLE 40 MG TABLET. PO SCH (07:40)
[2016-07-28] MEDS: GABAPENTIN 300 MG CAPSULE. PO SCH ×3 (07:40→20:31)
[2016-07-28] MEDS: FUROSEMIDE 40 MG TABLET PO SCH (07:41)
[2016-07-28] MEDS: predniSONE 5 MG TABLET PO SCH (07:41)
[2016-07-28] MEDS: POTASSIUM CHLORIDE 10 MEQ TABLET.ER. PO SCH ×2 (07:41→20:31)
[2016-07-28] MEDS: ASPIRIN 81 MG TAB.CHEW PO SCH (07:41)
[2016-07-28] MEDS: FLUCONAZOLE 100 MG TABLET. PO SCH (07:41)
[2016-07-28] MEDS: NON FORMULARY ITEM (Vortioxetine Hydrobromide (Trintellix) 10 MG) PO SCH (07:42)
[2016-07-28] MEDS: PRAVASTATIN 20 MG TABLET. PO SCH (07:42)
[2016-07-28] MEDS: PRIMIDONE 50 MG TABLET PO SCH ×4 (07:44→20:31)
[2016-07-28] MEDS: DICLOFENAC SODIUM 1% TOPICAL GEL 100GM TUBE. TP SCH ×2 (07:45→20:32)
[2016-07-28] MEDS: INSULIN ASPART 300 UNITS/3 ML INSULN.PEN SQ SCH ×4 (08:13→20:39)
[2016-07-28] MEDS: BUDESONIDE 0.5 MG/2 ML NEBU NEB SCH ×2 (09:38→20:18)
[2016-07-28 18:13] VITALS: BP 134/73
[2016-07-28] MEDS: ARIPiprazole 5 MG TABLET PO SCH (20:30)
[2016-07-28] MEDS: MONTELUKAST 10 MG TABLET. PO SCH (20:31)
[2016-07-28] MEDS: PHENYTOIN SODIUM EXTENDED 100 MG CAPSULE PO SCH (20:31)
[2016-07-28] MEDS: EZETIMIBE 10 MG TABLET PO SCH (20:32)
[2016-07-28] MEDS: MIRTAZAPINE 15 MG TABLET PO SCH (20:32)
[2016-07-29] MEDS: IPRATRPIUM/ALBUTEROL 0.5/2.5MG 3 ML NEBU. NEB SCH ×4 (05:50→20:39)
[2016-07-29] MEDS: INSULIN ASPART 300 UNITS/3 ML INSULN.PEN SQ SCH ×4 (07:30→21:00)
[2016-07-29] MEDS: GABAPENTIN 300 MG CAPSULE. PO SCH ×4 (07:51→21:48)
[2016-07-29] MEDS: PRIMIDONE 50 MG TABLET PO SCH ×4 (07:51→21:50)
[2016-07-29] MEDS: PANTOPRAZOLE 40 MG TABLET. PO SCH (07:51)
[2016-07-29] MEDS: diazePAM 5 MG TABLET PO SCH ×4 (07:52→21:51)
[2016-07-29] MEDS: FUROSEMIDE 40 MG TABLET PO SCH (07:52)
[2016-07-29] MEDS: ASPIRIN 81 MG TAB.CHEW PO SCH (07:52)
[2016-07-29] MEDS: PRAVASTATIN 20 MG TABLET. PO SCH (07:52)
[2016-07-29] MEDS: FLUCONAZOLE 100 MG TABLET. PO SCH (07:53)
[2016-07-29] MEDS: predniSONE 5 MG TABLET PO SCH (07:53)
[2016-07-29] MEDS: POTASSIUM CHLORIDE 10 MEQ TABLET.ER. PO SCH ×2 (07:53→21:52)
[2016-07-29] MEDS: NON FORMULARY ITEM (Vortioxetine Hydrobromide (Trintellix) 10 MG) PO SCH (07:54)
[2016-07-29 08:48] VITALS: BP 130/84
[2016-07-29] MEDS: DICLOFENAC SODIUM 1% TOPICAL GEL 100GM TUBE. TP SCH ×2 (09:00→21:53)
[2016-07-29] MEDS: BUDESONIDE 0.5 MG/2 ML NEBU NEB SCH ×2 (11:15→20:39)
[2016-07-29 18:10] VITALS: BP 152/81
[2016-07-29 20:10] VITALS: BP 110/73
[2016-07-29] MEDS: EZETIMIBE 10 MG TABLET PO SCH (21:47)
[2016-07-29] MEDS: MIRTAZAPINE 15 MG TABLET PO SCH (21:49)
[2016-07-29] MEDS: ARIPiprazole 5 MG TABLET PO SCH (21:50)
[2016-07-29] MEDS: MONTELUKAST 10 MG TABLET. PO SCH (21:52)
[2016-07-29] MEDS: PHENYTOIN SODIUM EXTENDED 100 MG CAPSULE PO SCH (21:54)
[2016-07-30] MEDS: IPRATRPIUM/ALBUTEROL 0.5/2.5MG 3 ML NEBU. NEB SCH ×4 (05:55→20:36)
[2016-07-30 06:38] VITALS: BP 101/83
[2016-07-30] MEDS: INSULIN ASPART 300 UNITS/3 ML INSULN.PEN SQ SCH ×4 (07:30→19:46)
[2016-07-30] MEDS: predniSONE 5 MG TABLET PO SCH (08:08)
[2016-07-30] MEDS: PANTOPRAZOLE 40 MG TABLET. PO SCH (08:08)
[2016-07-30] MEDS: ASPIRIN 81 MG TAB.CHEW PO SCH (08:08)
[2016-07-30] MEDS: FUROSEMIDE 40 MG TABLET PO SCH (08:08)
[2016-07-30] MEDS: POTASSIUM CHLORIDE 10 MEQ TABLET.ER. PO SCH ×2 (08:08→19:46)
[2016-07-30] MEDS: PRAVASTATIN 20 MG TABLET. PO SCH (08:08)
[2016-07-30] MEDS: GABAPENTIN 300 MG CAPSULE. PO SCH ×2 (08:08→19:46)
[2016-07-30] MEDS: diazePAM 5 MG TABLET PO SCH ×4 (08:08→19:46)
[2016-07-30] MEDS: PRIMIDONE 50 MG TABLET PO SCH ×4 (08:09→19:46)
[2016-07-30] MEDS: FLUCONAZOLE 100 MG TABLET. PO SCH (08:09)
[2016-07-30] MEDS: NON FORMULARY ITEM (Vortioxetine Hydrobromide (Trintellix) 10 MG) PO SCH (08:09)
[2016-07-30] MEDS: DICLOFENAC SODIUM 1% TOPICAL GEL 100GM TUBE. TP SCH ×2 (08:15→19:45)
[2016-07-30] MEDS: BUDESONIDE 0.5 MG/2 ML NEBU NEB SCH ×2 (09:50→20:36)
[2016-07-30 16:11] LABS: HEMOGLOBIN A1C 7.6 % (4.8-5.6)
[2016-07-30 18:03] VITALS: BP 138/81
[2016-07-30] MEDS: PHENYTOIN SODIUM EXTENDED 100 MG CAPSULE PO SCH (19:45)
[2016-07-30] MEDS: NYSTATIN TOPICAL POWDER 15GM BOTTLE. TP PRN (19:45)
[2016-07-30] MEDS: MIRTAZAPINE 15 MG TABLET PO SCH (19:46)
[2016-07-30] MEDS: MONTELUKAST 10 MG TABLET. PO SCH (19:46)
[2016-07-30] MEDS: ARIPiprazole 5 MG TABLET PO SCH (19:46)
[2016-07-30] MEDS: EZETIMIBE 10 MG TABLET PO SCH (19:46)
[2016-07-31] MEDS: IPRATRPIUM/ALBUTEROL 0.5/2.5MG 3 ML NEBU. NEB SCH ×3 (05:53→16:24)
[2016-07-31 06:28] VITALS: BP 138/80
[2016-07-31] MEDS: INSULIN ASPART 300 UNITS/3 ML INSULN.PEN SQ SCH ×3 (07:30→16:50)
[2016-07-31] MEDS: ASPIRIN 81 MG TAB.CHEW PO SCH (08:14)
[2016-07-31] MEDS: PRAVASTATIN 20 MG TABLET. PO SCH (08:14)
[2016-07-31] MEDS: diazePAM 5 MG TABLET PO SCH ×3 (08:14→16:46)
[2016-07-31] MEDS: FUROSEMIDE 40 MG TABLET PO SCH (08:15)
[2016-07-31] MEDS: predniSONE 5 MG TABLET PO SCH (08:15)
[2016-07-31] MEDS: POTASSIUM CHLORIDE 10 MEQ TABLET.ER. PO SCH (08:15)
[2016-07-31] MEDS: GABAPENTIN 300 MG CAPSULE. PO SCH ×2 (08:15→12:06)
[2016-07-31] MEDS: PANTOPRAZOLE 40 MG TABLET. PO SCH (08:15)
[2016-07-31] MEDS: FLUCONAZOLE 100 MG TABLET. PO SCH (08:15)
[2016-07-31] MEDS: NON FORMULARY ITEM (Vortioxetine Hydrobromide (Trintellix) 10 MG) PO SCH (08:15)
[2016-07-31] MEDS: PRIMIDONE 50 MG TABLET PO SCH ×3 (08:16→16:47)
[2016-07-31] MEDS: DICLOFENAC SODIUM 1% TOPICAL GEL 100GM TUBE. TP SCH (08:16)
[2016-07-31] MEDS ORDERED: IPRA3AMP NEB (09:37)
[2016-07-31] MEDS ORDERED: METF500T4 PO (09:37)
[2016-07-31] MEDS ORDERED: NYST60PO TP (09:37)
[2016-07-31] MEDS ORDERED: PRED5TAB PO (09:37)
[2016-07-31] MEDS: BUDESONIDE 0.5 MG/2 ML NEBU NEB SCH (11:47)
[2016-07-31] MEDS: HYDROcodone/APAP 7.5/325MG 1 TAB TABLET PO PRN (13:19)
--- NOTE | 2016-09-26 18:03 | DS ---
DATE OF DISCHARGE: 07/31/2016 HOSPITAL COURSE: The patient was discharged on 07/31/2016. The patient has generalized weakness and denies shortness of breath. The patient was sent to the swing bed where she was on the swing her skilled unit here at the hospital for admission for this particular problem. She received physical and occupational therapy. She made excellent progress during the rest of her hospitalization. Her sugars were monitored and brought under a little bit better control. Otherwise, the patient will be discharged home and follow up as an outpatient and continue with home health. Diabetic diet, decreased activity. IMPRESSION: Acute respiratory distress, generalized weakness, failure to thrive, morbid obesity, abdominal pain, and splenomegaly. SCOOTER HOPKINS MD DR: NGOZI/elisa JOB#: [id number] / [id number]
== END 2016-07-31 18:13 | disposition home health service (06) | DRG 191 ==
LOC: LND 10:45
PROVIDERS: ADMIT Family Medicine; ATTEND Family Medicine
DX: J44.1 Chronic obstructive pulmonary disease with (acute) exacerbation (principal); J80 Acute respiratory distress syndrome; Z68.41 Body mass index [BMI] 40.0-44.9, adult; E78.5 Hyperlipidemia, unspecified; M81.0 Age-related osteoporosis without current pathological fracture; K21.9 Gastro-esophageal reflux disease without esophagitis; F32.9 Major depressive disorder, single episode, unspecified; Z96.651 Presence of right artificial knee joint; G40.909 Epilepsy, unspecified, not intractable, without status epilepticus; M79.7 Fibromyalgia; G62.9 Polyneuropathy, unspecified; E66.01 Morbid (severe) obesity due to excess calories; F41.9 Anxiety disorder, unspecified; G89.29 Other chronic pain; Z98.42 Cataract extraction status, left eye; Z90.710 Acquired absence of both cervix and uterus; Z83.3 Family history of diabetes mellitus; Z82.49 Family history of ischemic heart disease and other diseases of the circulatory system; Z80.3 Family history of malignant neoplasm of breast; R62.7 Adult failure to thrive
CPT/HCPCS: 36415; 82947; 83036; 94640; 94760; J0696; J7512; J7620; J7626; 97110; 97116; 97530; 97535

== ENCOUNTER 2016-08-10 12:15 | Inpatient (IN) | payer MEDICARE, BC ==
[~2016-08-10] VITALS: Ht 162.6 cm; Wt 109.9 kg
[~2016-08-10 12:15] MED LIST changes: +ALBU2.5V5 NEB; +FURO10VI42 PO; +INSU100I17 SQ; +IPRA3AMP NEB; +LEVO500T59 PO; +METF500T4 PO; +NYST60PO TP; +PRED20TA PO; +PRED5TAB PO; +VORT10TA PO
[2016-08-10 14:08] VITALS: BP 132/68
[2016-08-10] MEDS ORDERED: fentaNYL PF 100 MCG/2 ML VIAL IV PRN (14:30)
[2016-08-10 14:45] VITALS: BP 132/68
[2016-08-10 15:01] LABS: BILIRUBIN,URINE NEG (NEG); CLARITY,URINE HAZY; COLOR,URINE YELLOW; GLUCOSE,URINE NEG (NEG); UROBILINOGEN,URINE 0.2 mg/dL (0.2 mg/dL)
[2016-08-10 15:02] LABS: BACTERIA,URINE 0 /HPF (0-FEW); NITRITE,URINE NEG (NEG); SQUAMOUS EPITHELIAL CELL,UR MOD /LPF; WBC,URINE OCC /HPF (0-4)
[2016-08-10] MEDS ORDERED: MIRT45TA PO (15:12)
[2016-08-10] MEDS ORDERED: FURO80TA3 PO (15:12)
[2016-08-10] MEDS ORDERED: TIOT18CA IH (15:16)
[2016-08-10 16:09] LABS: BASO # 0.1 x10^3/uL (0.0-0.2); BASO % 1 % (0-3); EOS # 0.3 x10^3/uL (0.0-0.7); EOS % 6 % (0-3); HEMATOCRIT 36.3 % (36.0-47.0); HEMOGLOBIN 12.5 g/dL (12.0-15.5); LYMPH # 1.7 x10^3/uL (1.0-4.8); LYMPH % 37 % (24-48); MEAN CORPUSCULAR HEMOGLOBIN 31 pg (25-35); MEAN CORPUSCULAR HGB CONC 34 g/dL (31-37); MEAN CORPUSCULAR VOLUME 89 fL (79-100); MONO # 0.4 x10^3/uL (0.0-1.1); MONO % 8 % (0-9); NEUT # 2.2 x10^3uL (1.8-7.7); NEUT % 48 % (31-73); PLATELET COUNT 155 x10^3/uL (140-400); RED BLOOD COUNT 4.07 x10^6/uL (3.50-5.40); RED CELL DISTRIBUTION WIDTH 16.1 % (11.5-14.5); WHITE BLOOD COUNT 4.6 x10^3/uL (4.0-11.0)
[2016-08-10] MEDS: fentaNYL PF 100 MCG/2 ML VIAL IV PRN ×3 (16:28→21:08)
[2016-08-10 16:33] LABS: ALBUMIN 3.5 g/dL (3.4-5.0); ALBUMIN/GLOBULIN RATIO 0.9 (1.0-1.7); CALCIUM 8.3 mg/dL (8.5-10.1); CREATININE 0.9 mg/dL (0.6-1.0); GFR 62.8; MAGNESIUM 1.8 mg/dL (1.8-2.4); POTASSIUM 3.3 mmol/L (3.5-5.1); TOTAL BILIRUBIN 0.3 mg/dL (0.2-1.0); TOTAL PROTEIN 7.4 g/dL (6.4-8.2)
--- NOTE | 2016-08-10 16:45 | RAD ---
CT of the lumbar spine without contrast, 08/10/2016: History: Fall, pain Noncontrast scans were obtained with multiplanar reconstructions produced. There is a moderate superior endplate deformity at L5. There is a mild superior endplate deformity at L4. There is a mild superior endplate deformity at T12. No acute fracture line is seen at these fracture sites, suggesting that they are probably old. There are fractures of the right transverse processes of L1 and L2 which are most likely recent. There are moderate degenerative changes involving scattered facet joints bilaterally, most severe at L5-S1. There is moderate posterior ligamentous calcification at T11-12 with mild associated central spinal stenosis. There is moderate posterior ligamentous calcification on the left at T12-L1 with mild associated narrowing of the left side of the spinal canal at that level. The central spinal canal and neural foramina are well preserved at L1-2, L2-3 and L3-4. At L4-5 there is mild posterior disc bulging and marginal spurring there is mild posterior ligamentous thickening due to facet joint arthropathy. The combination of findings is causing mild central spinal stenosis and mild inferior foraminal narrowing bilaterally. At L5-S1 there is a small posterior disc protrusion centered just to the right of midline. Incidental note is made of moderate aortic calcific plaquing. An inferior vena cava filter is in place. There is mild streaky atelectasis and/or scarring posteriorly in the lung bases. IMPRESSION: 1. Recent fractures of the right transverse processes at L1 and L2. 2. Mild vertebral compression deformities at T12, L4 and L5 are most likely old. 3. Moderate multilevel degenerative changes as described above with mild associated central spinal stenosis at L4-5. 4. Mild central spinal stenosis at T11-12 due to extensive posterior ligamentous ossification. PQRS Compliance Statement: One or more of the following individualized dose reduction techniques were utilized for this examination: 1. Automated exposure control 2. Adjustment of the mA and/or kV according to patient size 3. Use of iterative reconstruction technique
[2016-08-10] MEDS ORDERED: ALBUTEROL SULFATE 2.5 MG/3 ML NEBU. NEB PRN (17:00)
[2016-08-10] MEDS: diazePAM 5 MG TABLET PO SCH ×2 (17:59→21:01)
[2016-08-10] MEDS: metFORMIN 500 MG TABLET PO SCH (17:59)
[2016-08-10] MEDS: PRIMIDONE 50 MG TABLET PO SCH ×2 (17:59→21:00)
[2016-08-10 19:00] VITALS: BP 102/60
[2016-08-10] MEDS: IPRATRPIUM/ALBUTEROL 0.5/2.5MG 3 ML NEBU. NEB SCH (19:54)
[2016-08-10] MEDS: BUDESONIDE 0.5 MG/2 ML NEBU NEB SCH (19:54)
[2016-08-10] MEDS ORDERED: MIRTAZAPINE 45 MG PO SCH (21:00)
[2016-08-10] MEDS: MONTELUKAST 10 MG TABLET. PO SCH (21:00)
[2016-08-10] MEDS ORDERED: NON FORMULARY ITEM (Fluticasone Propionate (Flovent 110MCG Hfa) 2 PUFF) IH SCH (21:00)
[2016-08-10] MEDS ORDERED: NON FORMULARY ITEM (Tiotropium Bromide (Spiriva) 18 MCG) IH SCH (21:00)
[2016-08-10] MEDS: GABAPENTIN 300 MG CAPSULE. PO SCH (21:01)
[2016-08-10] MEDS: PHENYTOIN SODIUM EXTENDED 100 MG CAPSULE PO SCH (21:01)
[2016-08-10] MEDS: POTASSIUM CHLORIDE 10 MEQ TABLET.ER. PO SCH (21:01)
[2016-08-10] MEDS: MIRTAZAPINE 15 MG TABLET PO SCH (21:01)
[2016-08-10] MEDS: ARIPiprazole 5 MG TABLET PO SCH (21:01)
[2016-08-10] MEDS: EZETIMIBE 10 MG TABLET PO SCH (21:01)
[2016-08-11] MEDS: fentaNYL PF 100 MCG/2 ML VIAL IV PRN ×2 (00:43→04:23)
[2016-08-11 03:00] VITALS: BP 102/60
[2016-08-11 05:00] VITALS: BP 106/61
[2016-08-11] MEDS: IPRATRPIUM/ALBUTEROL 0.5/2.5MG 3 ML NEBU. NEB SCH ×4 (06:16→20:20)
--- NOTE | 2016-08-11 06:40 | CONS ---
DATE OF CONSULTATION: 08/10/2016 NEUROLOGIC CONSULTATION REASON FOR CONSULTATION: Severe low back pain, status post fall. HISTORY OF PRESENT ILLNESS: This is a 65-year-old right-handed female who was admitted with 8-day history of progressive lower back pain radiating to the right hip secondary to recent fall on 08/02/2016. According to the patient, she fell backwards at home and landed on her back against the toilet seat. Subsequently, she started experiencing a severe lower back pain, aggravated by physical activities. The patient did not go to the hospital or call her physicians. In the last 2 days, the pain has been intensified and radiating to the right hip and upper thigh. She denies numbness or paresthesia; however, the patient has had a chronic lower back pain, numbness and tingling of the lower extremity, probably secondary to peripheral neuropathy. Her pain has been 8/10 on the scale. She has difficulty turning her body on the left side. Initial lumbosacral spine CT scan revealed evidence of recent fracture of the right transverse process at L1-L2 with mild vertebral compression deformities at T12, L4 and L5 along with multilevel degenerative disk disease and mild central stenosis at T11-T12 due to extensive posterior ligamentous ossification. PAST MEDICAL HISTORY: Significant for essential tremor, mood disorder, seizure disorder, shoulder injuries, cataract, COPD, exacerbation, vertigo, and vestibular neuritis. Recently diagnosed with diabetes mellitus. Hyperlipidemia. SOCIAL HISTORY: The patient is . She denies smoking, alcohol drinking, or illicit drug use. CURRENT MEDICATIONS: Albuterol inhaler, albuterol nebulizer, Abilify, aspirin, Pulmicort, diazepam, Zetia, fentanyl IV p.r.n., Lasix, gabapentin, hydrocodone 7.5/325 p.r.n., metformin, mirtazapine, Ruiz, phenytoin, pantoprazole, pravastatin, and primidone. ALLERGIES: PENICILLIN AND SULFA DRUGS, ENOXAPARIN AND ERYTHROMYCIN BASE. REVIEW OF SYSTEMS: A 10-point review of system was performed consistent with severe low back pain radiating to the right hip. Otherwise, as mentioned above in history of present illness. PHYSICAL EXAMINATION: GENERAL: Obese white female, not in acute distress. She weighs 244 pounds. VITAL SIGNS: Blood pressure 132/68, respiratory rate 22, pulse is 87 and regular, temperature 97.8, oxygen saturation 94% on 3 liters by nasal cannula. NECK: Supple. Negative for carotid bruit, lymphadenopathy or thyromegaly. LUNGS: Clear to A and P. CARDIOVASCULAR: Regular rate and rhythm, normal S1, S2. ABDOMEN: Soft. Bowel sounds positive. EXTREMITIES: Positive for trace edema. MENTAL STATUS: The patient is alert and oriented x 3. Speech is fluent. There is no language dysfunction. Memory, judgment, and abstract thinking are normal. The patient denies hallucination or delusion. CRANIAL NERVES: The pupils are reactive to light and accommodation. The extraocular movements are intact. The visual bruce are full. There is no nystagmus. There is no facial motor or sensory deficit. Hearing is intact bilaterally. The palate is elevated symmetrically. Sternocleidomastoid muscles are powerful bilaterally. The patient shrugs her shoulders symmetrically and protrudes her tongue in the midline without fasciculation or atrophy. MOTOR: No focal muscle bulk was seen. The tone is normal. The strength is 4/5 in the proximal lower extremities. The strength also was 5/5 throughout. Sensory examination revealed diminished pinprick and light touch senses in patchy distributions in both upper and lower extremities. Deep tendon reflexes were symmetric and hypoactive with absent Achilles responses. Gait not tested at this time. LABORATORY DATA: CBC revealed white blood cells of 4.6 thousand, hemoglobin 12.5, hematocrit 36.3, platelet count 155,000. Chemistry revealed sodium of 143, potassium 3.3, chloride 103, CO2 28, BUN 13, creatinine 0.9. Glucose 169, calcium 8.3 and magnesium 1.3. Liver enzymes are normal except with elevated alkaline phosphatase. Urinalysis is negative for urinary tract infections. IMPRESSION: 1. Status post fall resulted in fracture of transverse process at L1-L2. 2. Multiple medical problems includes seizure disorder, chronic obstructive pulmonary disease, peripheral neuropathy, hyperlipidemia, urinary incontinence, osteoarthritis and osteoporosis. More disorders, sleep apnea and essential tremor. RECOMMENDATIONS: 1. Conservative management with nonsteroidal anti-inflammatory drugs was started along with analgesics and muscle relaxant. 2. Continue with current pain management initiated by Dr. Porter. 3. Bed rest. M Alvaro CASTILLO MD DR: TOLU/elisa JOB#: [id number] / [id number]
[2016-08-11] MEDS: POTASSIUM CHLORIDE 10 MEQ TABLET.ER. PO SCH ×2 (08:06→20:51)
[2016-08-11] MEDS: metFORMIN 500 MG TABLET PO SCH ×2 (08:07→17:11)
[2016-08-11] MEDS: PRAVASTATIN 20 MG TABLET. PO SCH (08:07)
[2016-08-11] MEDS: HYDROcodone/APAP 7.5/325MG 1 TAB TABLET PO PRN ×3 (08:07→19:41)
[2016-08-11] MEDS: ASPIRIN 81 MG TAB.CHEW PO SCH (08:07)
[2016-08-11] MEDS: FUROSEMIDE 80 MG TABLET PO SCH (08:07)
[2016-08-11] MEDS: diazePAM 5 MG TABLET PO SCH ×4 (08:07→20:52)
[2016-08-11] MEDS: PANTOPRAZOLE 40 MG TABLET. PO SCH (08:07)
[2016-08-11] MEDS: GABAPENTIN 300 MG CAPSULE. PO SCH ×3 (08:07→20:51)
[2016-08-11] MEDS: PRIMIDONE 50 MG TABLET PO SCH ×4 (08:08→20:51)
[2016-08-11] MEDS: VORTIOXETINE HYDROBROMIDE 40 MG PO SCH (08:08)
[2016-08-11 09:57] LABS: PHENY 18.8 mcg/mL (10.0-20.0)
[2016-08-11 10:25] VITALS: BP 111/65
[2016-08-11] MEDS: BUDESONIDE 0.5 MG/2 ML NEBU NEB SCH ×2 (11:25→20:20)
[2016-08-11 16:03] VITALS: BP 122/68
[2016-08-11 19:00] VITALS: BP 118/71
[2016-08-11] MEDS: MIRTAZAPINE 15 MG TABLET PO SCH (20:51)
[2016-08-11] MEDS: MONTELUKAST 10 MG TABLET. PO SCH (20:51)
[2016-08-11] MEDS: EZETIMIBE 10 MG TABLET PO SCH (20:51)
[2016-08-11] MEDS: PHENYTOIN SODIUM EXTENDED 100 MG CAPSULE PO SCH (20:52)
[2016-08-11] MEDS: ARIPiprazole 5 MG TABLET PO SCH (20:52)
[2016-08-11 22:55] VITALS: BP 110/61
--- NOTE | 2016-08-12 02:48 | PN ---
DATE: SUBJECTIVE: A 65-year-old female fell and fractured a couple of pedicles of her lumbar spine. She is in excruciating pain. Potassium was on the low side. Repeating, checking that will make further evaluation on her as indicated on those results. Otherwise, the patient did have a few red blood cells in her urine and is concerned that she might have damaged her kidneys with this fall. She fell backwards and a large hematoma to the back as well as severe pain. Dr. Stephens also was consulted and as usual timely consultation but otherwise seems to be resting fairly stable, somewhat depressed. PHYSICAL EXAMINATION: VITAL SIGNS: Blood pressure 110/60, respiration 16, pulse 78, afebrile. GENERAL: The patient is alert and oriented. LUNGS: Diminished, but clear. CARDIOVASCULAR: Regular sinus rhythm. EXTREMITIES: The patient is in moderate pain, 8 to 9 over 10, continue to monitor the patient accordingly. Ecchymosis noted to the back. ____: Stable. NEUROLOGIC: She was confused this morning, somewhat stupor, she did not quite understand why she was here, even though she had quite the element of evaluation yesterday. IMPRESSION: Fracture of the transverse L1 and L2, hematoma to the back, hematuria, history of seizure activity, and multiple other medical problems. PLAN: Continue to monitor the patient and accordingly further evaluation on her pain management, physical and occupational therapy. SCOOTER HOPKINS MD DR: NGOZI/elisa JOB#: [id number] / [id number]
[2016-08-12] MEDS: IPRATRPIUM/ALBUTEROL 0.5/2.5MG 3 ML NEBU. NEB SCH ×4 (05:28→20:50)
[2016-08-12 05:42] VITALS: BP 107/59
[2016-08-12 07:07] LABS: CALCIUM 8.2 mg/dL (8.5-10.1); CREATININE 0.9 mg/dL (0.6-1.0); GFR 62.8; POTASSIUM 3.2 mmol/L (3.5-5.1)
[2016-08-12] MEDS: ASPIRIN 81 MG TAB.CHEW PO SCH (08:27)
[2016-08-12] MEDS: PANTOPRAZOLE 40 MG TABLET. PO SCH (08:27)
[2016-08-12] MEDS: PRIMIDONE 50 MG TABLET PO SCH ×4 (08:27→20:15)
[2016-08-12] MEDS: diazePAM 5 MG TABLET PO SCH ×4 (08:27→20:06)
[2016-08-12] MEDS: GABAPENTIN 300 MG CAPSULE. PO SCH ×3 (08:27→20:07)
[2016-08-12] MEDS: metFORMIN 500 MG TABLET PO SCH ×2 (08:27→16:55)
[2016-08-12] MEDS: FUROSEMIDE 80 MG TABLET PO SCH (08:28)
[2016-08-12] MEDS: PRAVASTATIN 20 MG TABLET. PO SCH (08:28)
[2016-08-12] MEDS: VORTIOXETINE HYDROBROMIDE 40 MG PO SCH (08:28)
[2016-08-12] MEDS: POTASSIUM CHLORIDE 10 MEQ TABLET.ER. PO SCH ×2 (08:28→20:08)
[2016-08-12] MEDS: HYDROcodone/APAP 7.5/325MG 1 TAB TABLET PO PRN ×2 (10:27→18:58)
--- NOTE | 2016-08-12 10:46 | PN ---
DATE: 08/10/2016 SUBJECTIVE: The patient continues to have lower back pain at 2 to 4/10 on the pain scale. The pain has been localized and not radiating into the lower extremities. She denies numbness, paresthesia, or recent weakness of the lower extremities. OBJECTIVE: GENERAL: Obese white female, not in acute distress. VITAL SIGNS: Blood pressure 122/68, respiratory rate is 20, pulse is 89 and regular, oxygen saturation 93% on 3 liters by nasal cannula. HEENT: Normocephalic and atraumatic, otherwise unremarkable. NECK: Supple. Negative for carotid bruit, lymphadenopathy, or thyromegaly. LUNGS: Clear to A and P. CARDIOVASCULAR: Regular rate and rhythm. Normal S1 and S2. There is no S3, S4, or murmur. ABDOMEN: Soft. Bowel sounds positive. EXTREMITIES: Negative for cyanosis, clubbing, or pitting edema. NEUROLOGICAL EXAM: MENTAL STATUS: The patient is alert and oriented x 3. Speech is fluent. There is no language dysfunction. Memory is intact. MOTOR EXAMINATION: Cranial nerves are intact . No focal muscle bulk was seen. The tone is normal. The strength is 4/5 throughout. The patient has very mild postural and kinetic tremors of the upper extremities. SENSORY: Sensory examination revealed diminished pinprick and light touch senses in patchy distributions in both upper and lower extremities. Deep tendon reflexes were symmetric and hypoactive with absent Achilles responses bilaterally. Gait not tested. LABORATORY DATA: CBC revealed white blood cells of 4.6 thousands, hemoglobin 12.5, hematocrit 36.3, and platelet count 155,000. Chemistry revealed sodium 143, potassium of 3.3, chloride 103, CO2 28, BUN 13, creatinine 0.9, and glucose 169. IMPRESSION: 1. Lower back pain due to fracture of the transverse process at L1-L2 secondary to fall. 2. Multiple medical problems includes diabetes mellitus, peripheral neuropathy, hyperlipidemia, chronic obstructive pulmonary disease, seizure disorder, osteoporosis, osteoarthritis, and obstructive sleep apnea. She is on BiPAP and essential tremor. RECOMMENDATIONS: Continue with current pain management and other home medications. M Alvaro CASTILLO MD DR: TOLU/elisa JOB#: [id number] / [id number]
[2016-08-12] MEDS: BUDESONIDE 0.5 MG/2 ML NEBU NEB SCH ×2 (11:04→20:50)
[2016-08-12 11:05] VITALS: BP 103/67
[2016-08-12] MEDS: fentaNYL PF 100 MCG/2 ML VIAL IV PRN (14:43)
[2016-08-12 16:12] VITALS: BP 121/70
[2016-08-12 20:03] VITALS: BP 149/97
[2016-08-12] MEDS: PHENYTOIN SODIUM EXTENDED 100 MG CAPSULE PO SCH (20:07)
[2016-08-12] MEDS: MONTELUKAST 10 MG TABLET. PO SCH (20:08)
[2016-08-12] MEDS: MIRTAZAPINE 15 MG TABLET PO SCH (20:08)
[2016-08-12] MEDS: EZETIMIBE 10 MG TABLET PO SCH (20:08)
[2016-08-12] MEDS: ARIPiprazole 5 MG TABLET PO SCH (20:15)
--- NOTE | 2016-08-13 03:36 | PN ---
DATE: 08/12/2016 SUBJECTIVE: A 65-year-old female in with fractured lumbar spines. The patient still has intractable pain, difficulty moving. We will continue or try to get her started on some PT, OT to make sure she is stable enough to be discharged home. The patient; otherwise, is somewhat anxious over her condition. OBJECTIVE: VITAL SIGNS: Blood pressure 105/60, respiratory rate 20, pulse 82, temperature afebrile. GENERAL: Alert and oriented. EXTREMITIES: The patient has marked ecchymosis over that lower back with marked tenderness, difficulty moving, difficulty getting out of bed at all because of the pain and twisting on that spine where she has had the fractures of the pedicles of the vertebral bodies. Otherwise, she will continue to be monitored with physical and occupational therapy. IMPRESSION: Intractable back pain secondary to fractures of the lumbar pedicle secondary to a fall at home. PLAN: As above. Continue with PT, OT. SCOOTER HOPKINS MD DR: NGOZI/elisa JOB#: [id number] / [id number]
[2016-08-13] MEDS: IPRATRPIUM/ALBUTEROL 0.5/2.5MG 3 ML NEBU. NEB SCH (05:25)
[2016-08-13 06:35] VITALS: BP 109/52
--- NOTE | 2016-08-13 07:00 | PN ---
DATE: 08/10/2016 SUBJECTIVE: The patient continues to have lower back pain, which usually aggravated by activities. The pain is localized and she also complains of intermittent numbness and paresthesia of the lower extremities. Sitting for two and half hours in the chair usually aggravated her lower back pain. She rated pain at 4 to 6/10 on the pain scale. She denies bowel or bladder incontinence. OBJECTIVE: GENERAL: Obese white female, not in acute distress. VITAL SIGNS: Blood pressure 103/67, respiratory rate 20, pulse is 82, temperature 97.6, and oxygen saturation 95% on 3 liters by nasal cannula. HEENT: Normocephalic and atraumatic, otherwise unremarkable. NECK: Supple. Negative for carotid bruit, lymphadenopathy, JVD, or thyromegaly. LUNGS: Clear to A and P. CARDIOVASCULAR: Regular rate and rhythm. Normal S1 and S2. There is no S3, S4, or murmur. ABDOMEN: Soft. Bowel sounds positive. EXTREMITIES: Negative for cyanosis, clubbing, or pitting edema. NEUROLOGICAL EXAM: Mental Status: The patient is alert and oriented x 3. Speech is fluent. There is no language dysfunction. Cranial nerves are intact. Motor Examination: No focal muscle bulk was seen. The tone is normal. The strength is 4/5 throughout. Sensory examination revealed diminished pinprick and light touch senses in patchy distributions in both lower extremities. Deep tendon reflexes were symmetric and hypoactive with absent Achilles responses. Gait not tested at this time. IMPRESSION: 1. Acute fracture of the transverse process at L1-L2 resulted in localized lower back pain. 2. Multiple medical problems includes chronic obstructive pulmonary disease, hypertension, peripheral neuropathy, diabetes mellitus, seizure disorder, osteoarthritis, osteoporosis, and obstructive sleep apnea. Currently, she is on BiPAP therapy. RECOMMENDATIONS: Continue with current home management with analgesics and ___ of narcotics on a p.r.n. basis. M Alvaro CASTILLO MD DR: TOLU/elisa JOB#: [id number] / [id number]
[2016-08-13] MEDS ORDERED: POTASSIUM CHLORIDE 10 MEQ CAPSULE.ER. PO ONE (08:00)
[2016-08-13] MEDS ORDERED: DOCUSATE SODIUM 100 MG CAPSULE PO SCH (09:00)
[2016-08-13] MEDS: GABAPENTIN 300 MG CAPSULE. PO SCH (09:00)
[2016-08-13] MEDS: POTASSIUM CHLORIDE 10 MEQ TABLET.ER. PO SCH (09:00)
[2016-08-13] MEDS: metFORMIN 500 MG TABLET PO SCH (09:01)
[2016-08-13] MEDS: FUROSEMIDE 80 MG TABLET PO SCH (09:01)
[2016-08-13] MEDS: HYDROcodone/APAP 7.5/325MG 1 TAB TABLET PO PRN (09:01)
[2016-08-13] MEDS: PANTOPRAZOLE 40 MG TABLET. PO SCH (09:01)
[2016-08-13] MEDS: PRAVASTATIN 20 MG TABLET. PO SCH (09:01)
[2016-08-13] MEDS: ASPIRIN 81 MG TAB.CHEW PO SCH (09:01)
[2016-08-13] MEDS: VORTIOXETINE HYDROBROMIDE 40 MG PO SCH (09:02)
[2016-08-13] MEDS: diazePAM 5 MG TABLET PO SCH (09:02)
[2016-08-13] MEDS: PRIMIDONE 50 MG TABLET PO SCH (09:02)
--- NOTE | 2016-08-13 20:44 | PN ---
DATE: SUBJECTIVE: The patient stated her back pain has been better and it is now 1/10 on the pain scale. She continues to complain of numbness and paresthesia of the lower extremities. The patient has been up in the chair for several hours yesterday and she is going to begin having physical therapy today. OBJECTIVE: GENERAL: Obese white female, not in acute distress. VITAL SIGNS: Blood pressure 109/52, respiratory rate 18, pulse is 89 and regular, temperature 98.1 and oxygen saturation is 91% on room air. HEENT: Normocephalic, atraumatic, otherwise unremarkable. NECK: Supple, negative for carotid bruit, lymphadenopathy or thyromegaly. LUNGS: Clear to A and P with diminished breath sound. CARDIOVASCULAR: Regular rate and rhythm, normal S1, S2. ABDOMEN: Soft. Bowel sounds positive. EXTREMITIES: Negative for cyanosis, clubbing or pitting edema. NEUROLOGICAL EXAMINATION: Mental Status: The patient is alert and oriented x 3. Speech is fluent. There is no language dysfunction. Cranial nerves are intact. No focal motor deficit. The strength is 4/5 throughout. Sensory examination revealed diminished pinprick and light touch senses in patchy distributions in both lower extremities. Deep tendon reflexes were ____ and hypoactive with absent Achilles responses. Gait not tested. IMPRESSION: 1. Lower back pain due to acute fracture of the transverse process at L1-L2. 2. Multiple medical problems include peripheral neuropathy in the lower extremities, diabetes mellitus, seizure disorders, osteoporosis, osteoarthritis, chronic obstructive pulmonary disease and obstructive sleep apnea. RECOMMENDATIONS: Continue with current management initiated by Dr. Porter and with BiPAP. M Alvaro CASTILLO MD DR: TOLU/elisa JOB#: [id number] / [id number]
--- NOTE | 2016-09-26 18:55 | DS ---
DATE OF DISCHARGE: 08/13/2016 HOSPITAL COURSE: The patient was admitted. The patient had fallen at home and hit her right side on the side of a toilet stool and had a severe hematoma to the lateral aspect of the back. The patient had a CT scan, which showed transverse fracture. Transverse process at L1-L2, mild vertebral compression deformities, moderate multilevel degenerative changes, and mild central canal stenosis as well. In any case, the patient was given pain management and physical and occupational therapy. She was still extremely weak on her feet and of course the fact that the patient had been falling was another great concern of this patient. The patient's labs were basically unremarkable. She did have slightly low potassium of 3.2. Blood sugars were a little bit elevated, but nothing significant. The patient has had generalized weakness, chronic COPD, and history of malignant melena over the years. In any case, she received physical and occupational therapy, but still was in quite a bit of pain. She was transferred to the swing bed for further evaluation and treatment for her general rehabilitation and pain in that side. IMPRESSION: Fall at home against toilet sit and fracture of the right transverse process at L1 and L2. She also had a compression deformity of T12, L4, and L5 and degenerative arthritis. The patient was under quite a bit of pain. She was generalized weak, also hypokalemia, type 2 diabetes poorly controlled, and morbid obesity. The patient will be on her diabetic diet. Physical and occupational therapy on the swing unit and make further evaluation on her facility. SCOOTER HOPKINS MD DR: NGOZI/elisa JOB#: [id number] / [id number]
== END 2016-08-13 09:34 | disposition swing bed (61) | DRG 208 ==
LOC: 1 SOUTH 13:34
PROVIDERS: ADMIT Family Medicine; ATTEND Family Medicine
PROC: 5A09357 Assistance with Respiratory Ventilation, Less than 24 Consecutive Hours, Continuous Positive Airway Pressure (ICD-10-PCS; principal; 2016-08-11)
PROC: 5A1935Z Respiratory Ventilation, Less than 24 Consecutive Hours (ICD-10-PCS; 2016-08-12)
DX: J96.00 Acute respiratory failure, unspecified whether with hypoxia or hypercapnia (principal); S32.019A Unspecified fracture of first lumbar vertebra, initial encounter for closed fracture; Z68.41 Body mass index [BMI] 40.0-44.9, adult; S32.029A Unspecified fracture of second lumbar vertebra, initial encounter for closed fracture; M81.0 Age-related osteoporosis without current pathological fracture; E66.9 Obesity, unspecified; M19.90 Unspecified osteoarthritis, unspecified site; I10 Essential (primary) hypertension; G40.909 Epilepsy, unspecified, not intractable, without status epilepticus; F39 Unspecified mood [affective] disorder; R31.9 Hematuria, unspecified; E78.5 Hyperlipidemia, unspecified; E11.42 Type 2 diabetes mellitus with diabetic polyneuropathy; J44.9 Chronic obstructive pulmonary disease, unspecified; G47.33 Obstructive sleep apnea (adult) (pediatric); R32 Unspecified urinary incontinence; G25.0 Essential tremor; G89.29 Other chronic pain; W19.XXXA Unspecified fall, initial encounter; Y93.89 Activity, other specified; Y92.098 Other place in other non-institutional residence as the place of occurrence of the external cause; Y99.8 Other external cause status; Z88.1 Allergy status to other antibiotic agents; Z88.0 Allergy status to penicillin; Z88.2 Allergy status to sulfonamides; Z88.8 Allergy status to other drugs, medicaments and biological substances; S30.0XXA Contusion of lower back and pelvis, initial encounter
CPT/HCPCS: 36415; 72131; 80048; 80053; 80185; 81001; 82947; 83735; 85027; 94640; J3010; J7613; J7620; J7626

== ENCOUNTER 2016-08-13 09:34 | Inpatient (IN) | payer MEDICARE, BC ==
[~2016-08-13] VITALS: Ht 162.6 cm; Wt 109.8 kg
[~2016-08-13 09:34] MED LIST changes: +FURO80TA3 PO; +MIRT45TA PO; +TIOT18CA IH
[2016-08-13] MEDS ORDERED: IPRATRPIUM/ALBUTEROL 0.5/2.5MG 3 ML NEBU. ONE (10:58)
[2016-08-13] MEDS ORDERED: BUDESONIDE 0.5 MG/2 ML NEBU ONE (10:58)
[2016-08-13] MEDS ORDERED: ALBUTEROL SULFATE 2.5 MG/3 ML NEBU. NEB PRN (11:15)
[2016-08-13] MEDS: IPRATRPIUM/ALBUTEROL 0.5/2.5MG 3 ML NEBU. NEB SCH ×3 (11:52→20:43)
[2016-08-13] MEDS: diazePAM 5 MG TABLET PO SCH ×3 (13:08→21:15)
[2016-08-13] MEDS: GABAPENTIN 300 MG CAPSULE. PO SCH ×2 (13:08→21:16)
[2016-08-13] MEDS: PRIMIDONE 50 MG TABLET PO SCH ×3 (13:08→21:16)
[2016-08-13] MEDS: HYDROcodone/APAP 7.5/325MG 1 TAB TABLET PO PRN ×2 (15:31→21:17)
[2016-08-13] MEDS: metFORMIN 500 MG TABLET PO SCH (16:27)
[2016-08-13 19:00] VITALS: BP 106/66
[2016-08-13] MEDS: BUDESONIDE 0.5 MG/2 ML NEBU NEB SCH (20:44)
[2016-08-13] MEDS ORDERED: NON FORMULARY ITEM (Tiotropium Bromide (Spiriva) 18 MCG) IH SCH (21:00)
[2016-08-13] MEDS ORDERED: NON FORMULARY ITEM (Fluticasone Propionate (Flovent 110MCG Hfa) 2 PUFF) IH SCH (21:00)
[2016-08-13] MEDS ORDERED: MIRTAZAPINE 45 MG PO SCH (21:00)
[2016-08-13] MEDS: PHENYTOIN SODIUM EXTENDED 100 MG CAPSULE PO SCH (21:15)
[2016-08-13] MEDS: ARIPiprazole 5 MG TABLET PO SCH (21:15)
[2016-08-13] MEDS: MONTELUKAST 10 MG TABLET. PO SCH (21:15)
[2016-08-13] MEDS: EZETIMIBE 10 MG TABLET PO SCH (21:15)
[2016-08-13] MEDS: MIRTAZAPINE 15 MG TABLET PO SCH (21:15)
[2016-08-13] MEDS: POTASSIUM CHLORIDE 10 MEQ TABLET.ER. PO SCH (21:16)
[2016-08-14 05:51] VITALS: BP 110/73
[2016-08-14] MEDS: IPRATRPIUM/ALBUTEROL 0.5/2.5MG 3 ML NEBU. NEB SCH ×4 (05:53→20:52)
[2016-08-14] MEDS: diazePAM 5 MG TABLET PO SCH ×4 (08:01→20:37)
[2016-08-14] MEDS: POTASSIUM CHLORIDE 10 MEQ TABLET.ER. PO SCH ×2 (08:01→20:36)
[2016-08-14] MEDS: GABAPENTIN 300 MG CAPSULE. PO SCH ×3 (08:01→20:36)
[2016-08-14] MEDS: PRIMIDONE 50 MG TABLET PO SCH ×4 (08:02→20:38)
[2016-08-14] MEDS: PRAVASTATIN 20 MG TABLET. PO SCH (08:02)
[2016-08-14] MEDS: ASPIRIN 81 MG TAB.CHEW PO SCH ×2 (08:02→16:46)
[2016-08-14] MEDS: PANTOPRAZOLE 40 MG TABLET. PO SCH (08:02)
[2016-08-14] MEDS: metFORMIN 500 MG TABLET PO SCH ×2 (08:02→16:46)
[2016-08-14] MEDS: VORTIOXETINE HYDROBROMIDE 40 MG PO SCH (08:02)
[2016-08-14] MEDS: FUROSEMIDE 80 MG TABLET PO SCH (08:02)
[2016-08-14] MEDS: HYDROcodone/APAP 7.5/325MG 1 TAB TABLET PO PRN ×2 (10:23→19:06)
[2016-08-14] MEDS: BUDESONIDE 0.5 MG/2 ML NEBU NEB SCH ×2 (10:27→20:52)
[2016-08-14 17:36] VITALS: BP 153/74
[2016-08-14] MEDS: ARIPiprazole 5 MG TABLET PO SCH (20:36)
[2016-08-14] MEDS: EZETIMIBE 10 MG TABLET PO SCH (20:36)
[2016-08-14] MEDS: PHENYTOIN SODIUM EXTENDED 100 MG CAPSULE PO SCH (20:36)
[2016-08-14] MEDS: MONTELUKAST 10 MG TABLET. PO SCH (20:36)
[2016-08-14] MEDS: MIRTAZAPINE 15 MG TABLET PO SCH (20:37)
[2016-08-15] MEDS: IPRATRPIUM/ALBUTEROL 0.5/2.5MG 3 ML NEBU. NEB SCH ×4 (05:54→21:05)
[2016-08-15 05:58] VITALS: BP 134/77
[2016-08-15] MEDS: GABAPENTIN 300 MG CAPSULE. PO SCH ×3 (07:24→18:57)
[2016-08-15] MEDS: metFORMIN 500 MG TABLET PO SCH ×2 (07:24→16:11)
[2016-08-15] MEDS: FUROSEMIDE 80 MG TABLET PO SCH (07:24)
[2016-08-15] MEDS: PRAVASTATIN 20 MG TABLET. PO SCH (07:24)
[2016-08-15] MEDS: ASPIRIN 81 MG TAB.CHEW PO SCH (07:24)
[2016-08-15] MEDS: PANTOPRAZOLE 40 MG TABLET. PO SCH (07:24)
[2016-08-15] MEDS: HYDROcodone/APAP 7.5/325MG 1 TAB TABLET PO PRN ×2 (07:25→18:57)
[2016-08-15] MEDS: POTASSIUM CHLORIDE 10 MEQ TABLET.ER. PO SCH ×2 (07:25→18:57)
[2016-08-15] MEDS: diazePAM 5 MG TABLET PO SCH ×4 (07:25→18:56)
[2016-08-15] MEDS: VORTIOXETINE HYDROBROMIDE 40 MG PO SCH (07:25)
[2016-08-15] MEDS: PRIMIDONE 50 MG TABLET PO SCH ×4 (07:25→18:56)
[2016-08-15] MEDS: BUDESONIDE 0.5 MG/2 ML NEBU NEB SCH ×2 (09:58→21:05)
[2016-08-15] MEDS: ARIPiprazole 5 MG TABLET PO SCH (18:56)
[2016-08-15] MEDS: MIRTAZAPINE 15 MG TABLET PO SCH (18:57)
[2016-08-15] MEDS: PHENYTOIN SODIUM EXTENDED 100 MG CAPSULE PO SCH (18:57)
[2016-08-15] MEDS: EZETIMIBE 10 MG TABLET PO SCH (18:58)
[2016-08-15] MEDS: MONTELUKAST 10 MG TABLET. PO SCH (18:58)
[2016-08-15 19:04] VITALS: BP 120/73
[2016-08-16] MEDS: HYDROcodone/APAP 7.5/325MG 1 TAB TABLET PO PRN ×3 (05:00→19:03)
[2016-08-16] MEDS: IPRATRPIUM/ALBUTEROL 0.5/2.5MG 3 ML NEBU. NEB SCH ×4 (05:38→20:20)
[2016-08-16] MEDS: PRIMIDONE 50 MG TABLET PO SCH ×4 (08:46→19:07)
[2016-08-16] MEDS: diazePAM 5 MG TABLET PO SCH ×4 (08:46→19:08)
[2016-08-16] MEDS: FUROSEMIDE 80 MG TABLET PO SCH (08:46)
[2016-08-16] MEDS: PRAVASTATIN 20 MG TABLET. PO SCH (08:47)
[2016-08-16] MEDS: GABAPENTIN 300 MG CAPSULE. PO SCH ×3 (08:47→19:06)
[2016-08-16] MEDS: ASPIRIN 81 MG TAB.CHEW PO SCH (08:47)
[2016-08-16] MEDS: POTASSIUM CHLORIDE 10 MEQ TABLET.ER. PO SCH ×2 (08:47→19:08)
[2016-08-16] MEDS: PANTOPRAZOLE 40 MG TABLET. PO SCH (08:47)
[2016-08-16] MEDS: metFORMIN 500 MG TABLET PO SCH ×2 (08:47→16:48)
[2016-08-16] MEDS: VORTIOXETINE HYDROBROMIDE 40 MG PO SCH (08:48)
[2016-08-16] MEDS: BUDESONIDE 0.5 MG/2 ML NEBU NEB SCH ×2 (11:32→20:20)
[2016-08-16 15:21] VITALS: BP 131/72
[2016-08-16] MEDS: MIRTAZAPINE 15 MG TABLET PO SCH (19:07)
[2016-08-16] MEDS: ARIPiprazole 5 MG TABLET PO SCH (19:07)
[2016-08-16] MEDS: PHENYTOIN SODIUM EXTENDED 100 MG CAPSULE PO SCH (19:07)
[2016-08-16] MEDS: MONTELUKAST 10 MG TABLET. PO SCH (19:08)
[2016-08-16] MEDS: EZETIMIBE 10 MG TABLET PO SCH (19:08)
[2016-08-17] MEDS: IPRATRPIUM/ALBUTEROL 0.5/2.5MG 3 ML NEBU. NEB SCH ×4 (05:33→22:05)
[2016-08-17 05:53] VITALS: BP 126/69
[2016-08-17] MEDS: metFORMIN 500 MG TABLET PO SCH ×2 (07:53→17:11)
[2016-08-17] MEDS: VORTIOXETINE HYDROBROMIDE 40 MG PO SCH (07:53)
[2016-08-17] MEDS: diazePAM 5 MG TABLET PO SCH ×4 (07:53→19:53)
[2016-08-17] MEDS: GABAPENTIN 300 MG CAPSULE. PO SCH ×3 (07:53→19:54)
[2016-08-17] MEDS: PRAVASTATIN 20 MG TABLET. PO SCH (07:53)
[2016-08-17] MEDS: ASPIRIN 81 MG TAB.CHEW PO SCH (07:54)
[2016-08-17] MEDS: HYDROcodone/APAP 7.5/325MG 1 TAB TABLET PO PRN ×3 (07:54→19:54)
[2016-08-17] MEDS: PRIMIDONE 50 MG TABLET PO SCH ×4 (07:54→19:57)
[2016-08-17] MEDS: PANTOPRAZOLE 40 MG TABLET. PO SCH (07:54)
[2016-08-17] MEDS: FUROSEMIDE 80 MG TABLET PO SCH (07:54)
[2016-08-17] MEDS: POTASSIUM CHLORIDE 10 MEQ TABLET.ER. PO SCH ×2 (07:54→19:55)
[2016-08-17] MEDS: BUDESONIDE 0.5 MG/2 ML NEBU NEB SCH ×2 (10:03→22:05)
[2016-08-17 19:24] VITALS: BP 123/77
[2016-08-17] MEDS: PHENYTOIN SODIUM EXTENDED 100 MG CAPSULE PO SCH (19:53)
[2016-08-17] MEDS: ARIPiprazole 5 MG TABLET PO SCH (19:53)
[2016-08-17] MEDS: MIRTAZAPINE 15 MG TABLET PO SCH (19:54)
[2016-08-17] MEDS: MONTELUKAST 10 MG TABLET. PO SCH (19:54)
[2016-08-17] MEDS: EZETIMIBE 10 MG TABLET PO SCH (19:54)
[2016-08-18] MEDS: IPRATRPIUM/ALBUTEROL 0.5/2.5MG 3 ML NEBU. NEB SCH ×4 (05:10→21:06)
[2016-08-18 05:41] VITALS: BP 126/74
[2016-08-18 08:00] VITALS: BP 142/80
[2016-08-18] MEDS: diazePAM 5 MG TABLET PO SCH ×4 (08:40→19:31)
[2016-08-18] MEDS: GABAPENTIN 300 MG CAPSULE. PO SCH ×3 (08:40→19:32)
[2016-08-18] MEDS: PRIMIDONE 50 MG TABLET PO SCH ×4 (08:40→19:32)
[2016-08-18] MEDS: PRAVASTATIN 20 MG TABLET. PO SCH (08:41)
[2016-08-18] MEDS: PANTOPRAZOLE 40 MG TABLET. PO SCH (08:41)
[2016-08-18] MEDS: POTASSIUM CHLORIDE 10 MEQ TABLET.ER. PO SCH ×2 (08:41→19:32)
[2016-08-18] MEDS: ASPIRIN 81 MG TAB.CHEW PO SCH (08:41)
[2016-08-18] MEDS: FUROSEMIDE 80 MG TABLET PO SCH (08:41)
[2016-08-18] MEDS: metFORMIN 500 MG TABLET PO SCH ×2 (08:41→17:24)
[2016-08-18] MEDS: VORTIOXETINE HYDROBROMIDE 40 MG PO SCH (09:00)
[2016-08-18] MEDS: BUDESONIDE 0.5 MG/2 ML NEBU NEB SCH ×2 (11:57→21:06)
[2016-08-18] MEDS: HYDROcodone/APAP 7.5/325MG 1 TAB TABLET PO PRN ×2 (13:34→19:33)
[2016-08-18 19:00] VITALS: BP 110/72
[2016-08-18] MEDS: ARIPiprazole 5 MG TABLET PO SCH (19:31)
[2016-08-18] MEDS: EZETIMIBE 10 MG TABLET PO SCH (19:32)
[2016-08-18] MEDS: PHENYTOIN SODIUM EXTENDED 100 MG CAPSULE PO SCH (19:32)
[2016-08-18] MEDS: MIRTAZAPINE 15 MG TABLET PO SCH (19:33)
[2016-08-18] MEDS: MONTELUKAST 10 MG TABLET. PO SCH (19:33)
[2016-08-19] MEDS: IPRATRPIUM/ALBUTEROL 0.5/2.5MG 3 ML NEBU. NEB SCH ×4 (05:35→20:00)
[2016-08-19] MEDS: PANTOPRAZOLE 40 MG TABLET. PO SCH (07:39)
[2016-08-19 07:54] VITALS: BP 108/55
[2016-08-19] MEDS: POTASSIUM CHLORIDE 10 MEQ TABLET.ER. PO SCH ×2 (08:19→19:51)
[2016-08-19] MEDS: metFORMIN 500 MG TABLET PO SCH ×2 (08:19→17:37)
[2016-08-19] MEDS: FUROSEMIDE 80 MG TABLET PO SCH (08:19)
[2016-08-19] MEDS: PRAVASTATIN 20 MG TABLET. PO SCH (08:19)
[2016-08-19] MEDS: diazePAM 5 MG TABLET PO SCH ×4 (08:19→19:49)
[2016-08-19] MEDS: ASPIRIN 81 MG TAB.CHEW PO SCH (08:19)
[2016-08-19] MEDS: GABAPENTIN 300 MG CAPSULE. PO SCH ×3 (08:20→19:50)
[2016-08-19] MEDS: PRIMIDONE 50 MG TABLET PO SCH ×4 (08:20→19:52)
[2016-08-19] MEDS: VORTIOXETINE HYDROBROMIDE 40 MG PO SCH (08:21)
[2016-08-19] MEDS: BUDESONIDE 0.5 MG/2 ML NEBU NEB SCH ×2 (11:34→20:00)
[2016-08-19] MEDS: HYDROcodone/APAP 7.5/325MG 1 TAB TABLET PO PRN ×2 (14:24→19:50)
[2016-08-19 18:25] VITALS: BP 103/55
[2016-08-19] MEDS: EZETIMIBE 10 MG TABLET PO SCH (19:49)
[2016-08-19] MEDS: MIRTAZAPINE 15 MG TABLET PO SCH (19:49)
[2016-08-19] MEDS: ARIPiprazole 5 MG TABLET PO SCH (19:50)
[2016-08-19] MEDS: PHENYTOIN SODIUM EXTENDED 100 MG CAPSULE PO SCH (19:50)
[2016-08-19] MEDS: MONTELUKAST 10 MG TABLET. PO SCH (19:50)
[2016-08-20 05:21] VITALS: BP 111/62
[2016-08-20] MEDS: BUDESONIDE 0.5 MG/2 ML NEBU NEB SCH ×2 (05:21→19:41)
[2016-08-20] MEDS: IPRATRPIUM/ALBUTEROL 0.5/2.5MG 3 ML NEBU. NEB SCH ×4 (05:21→19:42)
[2016-08-20] MEDS: PRIMIDONE 50 MG TABLET PO SCH ×4 (07:58→20:01)
[2016-08-20] MEDS: ASPIRIN 81 MG TAB.CHEW PO SCH (07:59)
[2016-08-20] MEDS: metFORMIN 500 MG TABLET PO SCH ×2 (07:59→17:10)
[2016-08-20] MEDS: FUROSEMIDE 80 MG TABLET PO SCH (07:59)
[2016-08-20] MEDS: GABAPENTIN 300 MG CAPSULE. PO SCH ×3 (07:59→20:00)
[2016-08-20] MEDS: PRAVASTATIN 20 MG TABLET. PO SCH (07:59)
[2016-08-20] MEDS: POTASSIUM CHLORIDE 10 MEQ TABLET.ER. PO SCH ×2 (07:59→20:00)
[2016-08-20] MEDS: VORTIOXETINE HYDROBROMIDE 40 MG PO SCH (08:00)
[2016-08-20] MEDS: diazePAM 5 MG TABLET PO SCH ×4 (08:00→19:59)
[2016-08-20] MEDS: PANTOPRAZOLE 40 MG TABLET. PO SCH (08:00)
[2016-08-20 14:38] VITALS: BP 132/74
[2016-08-20 18:08] VITALS: BP 121/70
[2016-08-20 18:38] LABS: BGAS PH 7.41 (7.35-7.45)
[2016-08-20] MEDS: MIRTAZAPINE 15 MG TABLET PO SCH (19:58)
[2016-08-20] MEDS: ARIPiprazole 5 MG TABLET PO SCH (19:59)
[2016-08-20] MEDS: PHENYTOIN SODIUM EXTENDED 100 MG CAPSULE PO SCH (19:59)
[2016-08-20] MEDS: EZETIMIBE 10 MG TABLET PO SCH (20:00)
[2016-08-20] MEDS: MONTELUKAST 10 MG TABLET. PO SCH (20:00)
[2016-08-21] MEDS: IPRATRPIUM/ALBUTEROL 0.5/2.5MG 3 ML NEBU. NEB SCH ×4 (06:03→20:30)
[2016-08-21 08:00] VITALS: BP 119/76
[2016-08-21] MEDS: diazePAM 5 MG TABLET PO SCH ×4 (08:36→19:54)
[2016-08-21] MEDS: PRAVASTATIN 20 MG TABLET. PO SCH (08:36)
[2016-08-21] MEDS: ASPIRIN 81 MG TAB.CHEW PO SCH (08:36)
[2016-08-21] MEDS: PANTOPRAZOLE 40 MG TABLET. PO SCH (08:36)
[2016-08-21] MEDS: POTASSIUM CHLORIDE 10 MEQ TABLET.ER. PO SCH ×2 (08:36→19:55)
[2016-08-21] MEDS: metFORMIN 500 MG TABLET PO SCH ×2 (08:36→17:18)
[2016-08-21] MEDS: PRIMIDONE 50 MG TABLET PO SCH ×4 (08:36→19:56)
[2016-08-21] MEDS: FUROSEMIDE 80 MG TABLET PO SCH (08:36)
[2016-08-21] MEDS: GABAPENTIN 300 MG CAPSULE. PO SCH ×3 (08:36→19:56)
[2016-08-21] MEDS: VORTIOXETINE HYDROBROMIDE 40 MG PO SCH (08:37)
[2016-08-21] MEDS: BUDESONIDE 0.5 MG/2 ML NEBU NEB SCH ×2 (11:58→20:30)
[2016-08-21] MEDS: HYDROcodone/APAP 7.5/325MG 1 TAB TABLET PO PRN ×2 (13:16→19:56)
--- NOTE | 2016-08-21 16:08 | RAD ---
Examination: 3 views of the bilateral knees. History: History of fall onto knees Comparison: Right knee from 10/31/2014 Findings: Left knee: There is moderate to severe joint space loss identified in the medial compartment. There is [id number] joint space loss identified in the lateral, patellofemoral compartments. Osteophyte formation identified in the medial, lateral, proximal compartments. Right knee: Right total knee arthroplasty changes in normal alignment. No acute fracture Impression: 1. No acute osseous findings. 2. Tricompartmental degenerative changes left knee joint most in the medial compartment. 3. Right total knee arthroplasty changes seen in normal alignment.
[2016-08-21 19:23] VITALS: BP 113/67
[2016-08-21] MEDS: MONTELUKAST 10 MG TABLET. PO SCH (19:54)
[2016-08-21] MEDS: EZETIMIBE 10 MG TABLET PO SCH (19:55)
[2016-08-21] MEDS: ARIPiprazole 5 MG TABLET PO SCH (19:55)
[2016-08-21] MEDS: PHENYTOIN SODIUM EXTENDED 100 MG CAPSULE PO SCH (19:56)
[2016-08-21] MEDS: MIRTAZAPINE 15 MG TABLET PO SCH (19:56)
[2016-08-22 05:41] VITALS: BP 111/69
[2016-08-22] MEDS: IPRATRPIUM/ALBUTEROL 0.5/2.5MG 3 ML NEBU. NEB SCH ×4 (05:52→19:41)
[2016-08-22] MEDS: FUROSEMIDE 80 MG TABLET PO SCH (08:05)
[2016-08-22] MEDS: diazePAM 5 MG TABLET PO SCH ×4 (08:05→19:59)
[2016-08-22] MEDS: POTASSIUM CHLORIDE 10 MEQ TABLET.ER. PO SCH ×2 (08:05→19:56)
[2016-08-22] MEDS: PRAVASTATIN 20 MG TABLET. PO SCH (08:05)
[2016-08-22] MEDS: PRIMIDONE 50 MG TABLET PO SCH ×4 (08:05→19:59)
[2016-08-22] MEDS: ASPIRIN 81 MG TAB.CHEW PO SCH (08:06)
[2016-08-22] MEDS: metFORMIN 500 MG TABLET PO SCH ×2 (08:06→17:08)
[2016-08-22] MEDS: VORTIOXETINE HYDROBROMIDE 40 MG PO SCH (08:06)
[2016-08-22] MEDS: PANTOPRAZOLE 40 MG TABLET. PO SCH (08:06)
[2016-08-22] MEDS: GABAPENTIN 300 MG CAPSULE. PO SCH ×3 (08:06→19:56)
[2016-08-22] MEDS: HYDROcodone/APAP 7.5/325MG 1 TAB TABLET PO PRN (09:56)
[2016-08-22] MEDS: BUDESONIDE 0.5 MG/2 ML NEBU NEB SCH ×2 (11:23→19:41)
[2016-08-22 19:34] LABS: BGAS PH 7.5 (7.35-7.45)
[2016-08-22 19:35] LABS: BASO % 1 % (0-3); EOS # 0.2 x10^3/uL (0.0-0.7); EOS % 5 % (0-3); HEMATOCRIT 33.6 % (36.0-47.0); HEMOGLOBIN 11.6 g/dL (12.0-15.5); LYMPH # 1.8 x10^3/uL (1.0-4.8); LYMPH % 41 % (24-48); MEAN CORPUSCULAR HEMOGLOBIN 31 pg (25-35); MEAN CORPUSCULAR HGB CONC 35 g/dL (31-37); MEAN CORPUSCULAR VOLUME 90 fL (79-100); MONO # 0.4 x10^3/uL (0.0-1.1); MONO % 9 % (0-9); NEUT # 1.9 x10^3uL (1.8-7.7); NEUT % 44 % (31-73); PLATELET COUNT 157 x10^3/uL (140-400); RED BLOOD COUNT 3.74 x10^6/uL (3.50-5.40); RED CELL DISTRIBUTION WIDTH 16.6 % (11.5-14.5); WHITE BLOOD COUNT 4.4 x10^3/uL (4.0-11.0)
[2016-08-22 19:38] LABS: CALCIUM 8.7 mg/dL (8.5-10.1); CREATININE 0.9 mg/dL (0.6-1.0); GFR 62.6; POTASSIUM 3.2 mmol/L (3.5-5.1)
[2016-08-22 19:41] LABS: PHENY 17.2 mcg/mL (10.0-20.0)
[2016-08-22 19:42] VITALS: BP 122/68
[2016-08-22] MEDS: LACTULOSE 20 GM/30 ML SOLUTION. PO SCH ×2 (19:56→19:58)
[2016-08-22] MEDS: ARIPiprazole 5 MG TABLET PO SCH (19:57)
[2016-08-22] MEDS: EZETIMIBE 10 MG TABLET PO SCH (19:57)
[2016-08-22] MEDS: PHENYTOIN SODIUM EXTENDED 100 MG CAPSULE PO SCH (19:57)
[2016-08-22] MEDS: MIRTAZAPINE 15 MG TABLET PO SCH (19:57)
[2016-08-22] MEDS: MONTELUKAST 10 MG TABLET. PO SCH (19:57)
--- NOTE | 2016-08-22 20:08 | PDOC ---
Exam Morales Demential Exam: Morales Note: Please also refer to the separate dictated note~for this date of service dictated separately.~Patient seen individually. Discussed the patient with Nursing staff reviewed the chart.~Reviewed interim history and current functioning. Reviewed vital signs,~Labs/ Radiology~and current medications noted below. Continue current treatment with the changes noted in the dictated addendum note Assessment: Vital Signs: Vital Signs Date Time Temp Pulse Resp B/P (MAP) Pulse Ox O2 Delivery O2 Flow Rate FiO2 08/22/16 19:44 98 Nasal Cannula 3.0 08/22/16 19:42 97.5 87 20 122/68 (86) I&O Intake and Output 08/22/16 07:00 Intake Total 340 ml Balance 340 ml Intake Oral 340 ml # Voids 6 # Bowel Movements 1 Labs: Laboratory Tests Test 08/22/16 07:14 08/22/16 19:20 Glucose (Fingerstick) 103 mg/dL (70-99) H White Blood Count 4.4 x10^3/uL (4.0-11.0) Red Blood Count 3.74 x10^6/uL (3.50-5.40) Hemoglobin 11.6 g/dL (12.0-15.5) L Hematocrit 33.6 % (36.0-47.0) L Mean Corpuscular Volume 90 fL (79-100) Mean Corpuscular Hemoglobin 31 pg (25-35) Mean Corpuscular Hemoglobin Concent 35 g/dL (31-37) Red Cell Distribution Width 16.6 % (11.5-14.5) H Platelet Count 157 x10^3/uL (140-400) Neutrophils (%) (Auto) 44 % (31-73) Lymphocytes (%) (Auto) 41 % (24-48) Monocytes (%) (Auto) 9 % (0-9) Eosinophils (%) (Auto) 5 % (0-3) H Basophils (%) (Auto) 1 % (0-3) Neutrophils # (Auto) 1.9 x10^3uL (1.8-7.7) Lymphocytes # (Auto) 1.8 x10^3/uL (1.0-4.8) Monocytes # (Auto) 0.4 x10^3/uL (0.0-1.1) Eosinophils # (Auto) 0.2 x10^3/uL (0.0-0.7) Basophils # (Auto) 0.0 x10^3/uL (0.0-0.2) Blood pH 7.50 (7.35-7.45) H Blood Gas PCO2 38 mmHg (35-45) Blood Gas PO2 140 mmHg (80-100) H Blood Gas HCO3 29 mmol/L (22-26) H Arterial Bld O2 Saturation (Calc) 99 % (92-99) FiO2 32 % Sodium Level 142 mmol/L (136-145) Potassium Level 3.2 mmol/L (3.5-5.1) L Chloride Level 101 mmol/L (98-107) Carbon Dioxide Level 31 mmol/L (21-32) Anion Gap 10 (6-14) Blood Urea Nitrogen 16 mg/dL (7-20) Creatinine 0.9 mg/dL (0.6-1.0) Estimated GFR (Cockcroft-Gault) 62.6 Glucose Level 120 mg/dL (70-99) H Calcium Level 8.7 mg/dL (8.5-10.1) Ammonia 127 mcmol/L (11-34) H Phenytoin (Dilantin) Level 17.2 mcg/mL (10.0-20.0) Phenytoin Last Dose Date 08/21/16 Phenytoin Last Dose Time 2100 Current Medications: Meds: Current Medications Albuterol/ Ipratropium (Duoneb) 3 ml STK-MED ONCE .ROUTE ; Start 08/13/16 at 10: 58; Stop 08/13/16 at 10:59; Status DC Budesonide (Pulmicort) 0.5 mg STK-MED ONCE .ROUTE Last administered on 11:51; Start 08/13/16 at 10:58; Stop 08/13/16 at 10:59; Status DC Albuterol Sulfate (Ventolin) 2.5 mg PRN Q6HRS PRN NEB SHORTNESS OF BREATH; Start 08/13/16 at 11:15 Aripiprazole (Abilify) 5 mg QHS PO Last administered on 08/22/16 19:57; Start 08/13/16 at 21:00 Aspirin (Children'S Aspirin) 81 mg DAILY PO Last administered on 08/22/16 08: 06; Start 08/14/16 at 09:00 Diazepam (Valium) 2.5 mg TIDPC PO Last administered on 08/22/16 17:08; Start 08/13/16 at 12:30 Diazepam (Valium) 7.5 mg QHS PO Last administered on 08/21/16 19:54; Start 02/17 at 21:00 EZETIMIBE (Zetia) 10 mg QHS PO Last administered on 08/22/16 19:57; Start 02/17 at 21:00 Furosemide (Lasix) 80 mg DAILY PO Last administered on 08/22/16 08:05; Start 08/14/16 at 09:00 Acetaminophen/ Hydrocodone Bitart (Lortab 7.5/325) 1 tab PRN Q6HRS PRN PO PAIN Last administered on 08/22/16 09:56; Start 08/13/16 at 11:15 Albuterol/ Ipratropium (Duoneb) 3 ml RTQID NEB Last administered on 08/22/16 19:41; Start 08/13/16 at 12:00 Metformin HCl (Glucophage) 500 mg BIDWMEALS PO Last administered on 08/22/16 17:08; Start 08/13/16 at 17:00 Mirtazapine (Remeron) 45 mg QHS PO Last administered on 08/22/16 19:57; Start 08/13/16 at 21:00 Montelukast Sodium (Singulair) 10 mg QHS PO Last administered on 08/22/16 19: 57; Start 08/13/16 at 21:00 Pantoprazole Sodium (Protonix) 40 mg DAILYAC PO Last administered on 08/22/16 08:06; Start 08/14/16 at 07:30 Phenytoin Sodium (Dilantin) 400 mg QHS PO Last administered on 08/22/16 19:57 ; Start 08/13/16 at 21:00 Potassium Chloride (Klor-Con) 10 meq BID PO Last administered on 08/22/16 19: 56; Start 08/13/16 at 21:00; Stop 08/22/16 at 20:07; Status DC Pravastatin Sodium (Pravachol) 20 mg DAILY PO Last administered on 08/22/16 08 :05; Start 08/14/16 at 09:00 Primidone (Mysoline) 150 mg QID PO Last administered on 08/22/16 19:59; Start 08/13/16 at 13:00 Non-Formulary Medication 2 puff BID IH ; Start 08/13/16 at 21:00; Stop 08/13/16 at 21:00; Status DC Gabapentin (Neurontin) 600 mg TID PO Last administered on 08/22/16 19:56; Start 08/13/16 at 14:00 Non-Formulary Medication 45 mg QHS PO ; Start 08/13/16 at 21:00; Stop 08/13/16 at 21:00; Status DC Non-Formulary Medication 18 mcg BID IH ; Start 08/13/16 at 21:00; Stop 08/13/16 at 21:00; Status DC Non-Formulary Medication 40 mg DAILY PO Last administered on 08/22/16 08:06; Start 08/14/16 at 09:00 Budesonide (Pulmicort) 0.5 mg RTBID NEB Last administered on 08/22/16 19:41; Start 08/13/16 at 20:00 Acetaminophen/ Hydrocodone Bitart (Lortab 7.5/325) 2 tab PRN Q6HRS PRN PO PAIN Last administered on 08/21/16 13:16; Start 08/16/16 at 15:15 Lactulose 20 gm QID PO Last administered on 08/22/16 19:58; Start 08/22/16 at 19:45 Potassium Chloride (Klor-Con) 20 meq BID PO ; Start 08/23/16 at 08:00; Status UNV Active Scripts Active Metformin Hcl 500 Mg Tablet 500 Mg PO BIDWMEALS 90 Days Duoneb 0.5-3(2.5) Mg/3 Ml (Albuterol/Ipratropium) 3 Ml Ampul.neb 3 Ml NEB RTQID 60 Days Albuterol Sulfate Neb Soln (Albuterol Sulfate) 2.5 Mg/3 Ml Vial.neb 2.5 Mg NEB PRN Q6HRS PRN 30 Days Reported Spiriva (Tiotropium [place]) 18 Mcg Cap.w.dev 18 Mcg IH BID Remeron (Mirtazapine) 45 Mg Tablet 45 Mg PO QHS Furosemide 80 Mg Tablet 80 Mg PO DAILY Trintellix (Vortioxetine Hydrobromide) 10 Mg Tablet 40 Mg PO DAILY Abilify (Aripiprazole) 5 Mg Tablet 1 Tab PO QHS last dose last night next dose tonight TIME: AM NEXT DOSE DUE: DATE: TOMORROW TIME: AM Hydrocodone-Apap 7.5-325 (Hydrocodone Bit/Acetaminophen) 1 Each Tablet 1 Tab PO PRN Q6HRS PRN LAST DOSE GIVEN: DATE: NOT GIVEN TODAY TIME: NEXT DOSE DUE: DATE: TODAY TIME: IF AND WHEN NEEDED Gralise (Gabapentin) 600 Mg Tab.er.24h 1 Tab PO TID LAST DOSE GIVEN: DATE: TODAY TIME: AFTERNOON NEXT DOSE DUE: DATE: TOMORROW TIME: AM Klor-Con M20 (Potassium Chloride) 20 Meq Tab.er.prt 0.5 Tab PO BID LAST DOSE GIVEN: DATE: TODAY TIME: AM NEXT DOSE DUE: DATE: TOMORR TIME: AM Flovent 110MCG Hfa (Fluticasone Propionate) 12 Gm Aer.w.adap 2 Puff IH BID LAST DOSE GIVEN: DATE: TIME: NEXT DOSE DUE: DATE: RESTART TODAY TIME: WHEN YOU GET HOME Montelukast Sodium Tablet (Montelukast Sodium) 10 Mg Tablet 10 Mg PO QHS LAST DOSE GIVEN: DATE: TODAY TIME: AM NEXT DOSE DUE: DATE: TOMORR TIME: AM Protonix (Pantoprazole Sodium) 40 Mg Tablet.dr 40 Mg PO DAILYAC LAST DOSE GIVEN: DATE: TODAY TIME: BEFORE BREAKFAST NEXT DOSE DUE: DATE: TOMORROW TIME: BEFORE BREAKFAST Dilantin (Phenytoin Sodium Extended) 100 Mg Capsule 400 Mg PO QHS LAST DOSE GIVEN: DATE: YESTERDAY TIME: AT BEDTIME NEXT DOSE DUE: DATE: TODAY TIME: AT BEDTIME Aspirin 81 Mg Tab.chew 81 Mg PO DAILY last dose this morning next dose tomorrow LAST DOSE GIVEN: DATE: TODAY TIME: AM NEXT DOSE DUE: DATE: TOMORROW TIME: AM Remeron (Mirtazapine) 15 Mg Tablet 45 Mg PO QHS LAST DOSE GIVEN: DATE: YESTER TIME: AT BEDTIME NEXT DOSE DUE: DATE: TODAY TIME: AT BEDTIME Zetia (Ezetimibe) 10 Mg Tablet 10 Mg PO QHS last dose last night next dose tonight TIME: AM NEXT DOSE DUE: DATE: TOMORROW TIME: AM Pravastatin Sodium 20 Mg Tablet 20 Mg PO DAILY LAST DOSE GIVEN: DATE: TODAY TIME: AM NEXT DOSE DUE: DATE: TOMORROW TIME: AM Primidone 50 Mg Tablet 150 Mg PO QID LAST DOSE GIVEN: DATE: TODAY TIME: AT 2 PM NEXT DOSE DUE: DATE: TODAY TIME: EVENING Diazepam 5 Mg Tablet 7.5 Mg PO QHS LAST DOSE GIVEN: DATE: YESTER TIME: AT BEDTIME NEXT DOSE DUE: DATE: TODAY TIME: AT BEDTIME Diazepam 5 Mg Tablet 2.5 Mg PO TIDPC LAST DOSE GIVEN: DATE: TODAY TIME: AFTER LUNCH NEXT DOSE DUE: DATE: TODAY TIME: AFTER DINNER Diagnosis: Problems: (1) Mood disorder SMILEY BETH MD Aug 22, 2016 20:08
[2016-08-23] MEDS: IPRATRPIUM/ALBUTEROL 0.5/2.5MG 3 ML NEBU. NEB SCH ×2 (05:32→09:28)
[2016-08-23 05:46] VITALS: BP 131/75
[2016-08-23] MEDS: PRIMIDONE 50 MG TABLET PO SCH (08:12)
[2016-08-23] MEDS: LACTULOSE 20 GM/30 ML SOLUTION. PO SCH (08:12)
[2016-08-23] MEDS: diazePAM 5 MG TABLET PO SCH (08:13)
[2016-08-23] MEDS: PANTOPRAZOLE 40 MG TABLET. PO SCH (08:13)
[2016-08-23] MEDS: POTASSIUM CHLORIDE 10 MEQ TABLET.ER. PO SCH ×2 (08:13→08:14)
[2016-08-23] MEDS: PRAVASTATIN 20 MG TABLET. PO SCH (08:13)
[2016-08-23] MEDS: FUROSEMIDE 80 MG TABLET PO SCH (08:13)
[2016-08-23] MEDS: ASPIRIN 81 MG TAB.CHEW PO SCH (08:13)
[2016-08-23] MEDS: metFORMIN 500 MG TABLET PO SCH (08:13)
[2016-08-23] MEDS: GABAPENTIN 300 MG CAPSULE. PO SCH (08:13)
[2016-08-23] MEDS: VORTIOXETINE HYDROBROMIDE 40 MG PO SCH (08:14)
[2016-08-23] MEDS: BUDESONIDE 0.5 MG/2 ML NEBU NEB SCH (09:28)
[2016-08-23] MEDS ORDERED: LACT10SO PO (11:30)
== END 2016-08-23 10:56 | disposition home health service (06) | DRG 544 ==
LOC: LND 09:34
PROVIDERS: ADMIT Family Medicine; ATTEND Family Medicine
DX: M48.56XA Collapsed vertebra, not elsewhere classified, lumbar region, initial encounter for fracture (principal); F39 Unspecified mood [affective] disorder; R55 Syncope and collapse; E78.5 Hyperlipidemia, unspecified; J45.909 Unspecified asthma, uncomplicated; K21.9 Gastro-esophageal reflux disease without esophagitis; M81.0 Age-related osteoporosis without current pathological fracture; Z86.711 Personal history of pulmonary embolism; Z85.89 Personal history of malignant neoplasm of other organs and systems; Z66 Do not resuscitate
CPT/HCPCS: 36415; 36600; 73562; 80048; 80185; 82140; 82803; 82947; 85027; 94640; 94760; J7620; J7626; 97110; 97116; 97530; 97535

== ENCOUNTER 2016-08-23 10:43 | Inpatient (IN) | payer MEDICARE, BC ==
[~2016-08-23] VITALS: Ht 162.6 cm; Wt 107.1 kg
[2016-08-23] MEDS ORDERED: LACT10SO PO (11:30)
[2016-08-23] MEDS ORDERED: ALBUTEROL SULFATE 2.5 MG/3 ML NEBU. NEB PRN (11:30)
[2016-08-23] MEDS: IPRATRPIUM/ALBUTEROL 0.5/2.5MG 3 ML NEBU. NEB SCH ×3 (12:00→19:57)
[2016-08-23] MEDS ORDERED: IOHEXOL 240 MG/ML 50ML VIAL. ONE (12:07)
[2016-08-23] MEDS: PRIMIDONE 50 MG TABLET PO SCH ×3 (12:39→20:11)
[2016-08-23] MEDS: diazePAM 5 MG TABLET PO SCH ×3 (12:40→20:13)
[2016-08-23] MEDS: HYDROcodone/APAP 7.5/325MG 1 TAB TABLET PO PRN ×2 (12:40→20:10)
[2016-08-23] MEDS: LACTULOSE 20 GM/30 ML SOLUTION. PO SCH ×3 (13:41→20:10)
[2016-08-23] MEDS ORDERED: IOHEXOL 240 MG/ML 50ML VIAL. PO ONE (14:45)
[2016-08-23 14:50] LABS: ALBUMIN 3.8 g/dL (3.4-5.0); DIRECT BILIRUBIN 0.1 mg/dL (0.0-0.2); TOTAL BILIRUBIN 0.3 mg/dL (0.2-1.0); TOTAL PROTEIN 8.2 g/dL (6.4-8.2)
--- NOTE | 2016-08-23 15:39 | RAD ---
Indication elevated ammonia level. Axial images through the abdomen and pelvis were obtained. Oral contrast was administered. IV contrast was not. Note is made of a previous examination 02/14/2009. There is volume loss at the lung bases likely reflecting atelectasis or scar. A dominant soft tissue mass at either lung base is not seen. There are low-density masses in the liver compatible with small cysts similar to the previous exam. A dominant mass in the liver or acute finding is not seen. Clips are noted in the gallbladder fossa. Spleen is slightly enlarged relative to the previous exam but still has a normal overall size. The pancreas is unremarkable. No adrenal or renal anomalies are seen. There are multiple serpiginous vessels in the retroperitoneum, more than on the previous exam, likely reflecting venous collaterals. There is some mild retroperitoneal adenopathy which is nonspecific. An IVC filter is noted. No acute finding in the abdomen is seen. In the pelvis no focal mass or inflammatory process is seen. There are degenerative changes in the lumbar spine. IMPRESSION: Volume loss at the lung bases likely reflecting atelectasis or scar. Mild enlargement of the spleen relative to the previous exam. Small hepatic cysts appearing similar. Probable multiple venous collaterals in the retroperitoneum. No acute finding seen in the abdomen or pelvis.
[2016-08-23] MEDS ORDERED: metFORMIN 500 MG TABLET PO SCH (17:00)
[2016-08-23] MEDS: GABAPENTIN 300 MG CAPSULE. PO SCH ×2 (17:08→20:10)
--- NOTE | 2016-08-23 17:35 | RAD ---
Indication:Elevated ammonia level. Suspect hepatic disease. Grayscale images of the abdomen were obtained. The examination is limited by virtue of patient body habitus. Comparison none Liver:There is some increased attenuation of the ultrasound beam by the liver compatible with fatty infiltration. A focal mass lesion was not seen in the visualized liver Gallbladder:Surgically absent. The common bile duct diameter of approximately 6 mm is within normal limits Spleen:Mildly enlarged but otherwise normal Pancreas:As visualized normal Kidneys:Normal Abdominal aorta and IVC:Part of the aorta was obscured by gas. That portion of the aorta which was seen appeared unremarkable. The visualized inferior vena cava appeared normal Ancillary findings:None Impression:Fatty infiltration of the liver. Surgically absent gallbladder. Aorta partially obscured
[2016-08-23 19:21] VITALS: BP 118/70
--- NOTE | 2016-08-23 19:43 | PDOC ---
Exam Morales Demential Exam: Morales Note: Please also refer to the separate dictated note~for this date of service dictated separately.~Patient seen individually. Discussed the patient with Nursing staff reviewed the chart.~Reviewed interim history and current functioning. Reviewed vital signs,~Labs/ Radiology~and current medications noted below. Continue current treatment with the changes noted in the dictated addendum note Assessment: Vital Signs: Vital Signs Date Time Temp Pulse Resp B/P (MAP) Pulse Ox O2 Delivery O2 Flow Rate FiO2 08/23/16 19:30 Nasal Cannula 2.0 08/23/16 19:21 97.8 80 22 118/70 (86) 97 Labs: Laboratory Tests Test 08/23/16 14:20 Total Bilirubin 0.3 mg/dL (0.2-1.0) Direct Bilirubin 0.1 mg/dL (0.0-0.2) Aspartate Amino Transferase (AST) 34 U/L (15-37) Alanine Aminotransferase (ALT) 29 U/L (14-59) Alkaline Phosphatase 169 U/L (46-116) H Total Protein 8.2 g/dL (6.4-8.2) Albumin 3.8 g/dL (3.4-5.0) Current Medications: Meds: Current Medications Albuterol Sulfate (Ventolin) 2.5 mg PRN Q6HRS PRN NEB SHORTNESS OF BREATH; Start 08/23/16 at 11:30 Aripiprazole (Abilify) 5 mg QHS PO ; Start 08/23/16 at 21:00 Aspirin (Children'S Aspirin) 81 mg DAILY PO ; Start 08/24/16 at 09:00 Diazepam (Valium) 2.5 mg TIDPC PO ; Start 08/23/16 at 12:30 Diazepam (Valium) 7.5 mg QHS PO ; Start 08/23/16 at 21:00 EZETIMIBE (Zetia) 10 mg QHS PO ; Start 08/23/16 at 21:00 Furosemide (Lasix) 80 mg DAILY PO ; Start 08/24/16 at 09:00 Acetaminophen/ Hydrocodone Bitart (Lortab 7.5/325) 1 tab PRN Q6HRS PRN PO PAIN Last administered on 08/23/16t 12:40; Start 08/23/16 at 11:30 Albuterol/ Ipratropium (Duoneb) 3 ml RTQID NEB ; Start 08/23/16 at 12:00 Metformin HCl (Glucophage) 500 mg BIDWMEALS PO ; Start 08/23/16 at 17:00; Stop 08/23/16 at 17:00; Status DC Montelukast Sodium (Singulair) 10 mg QHS PO ; Start 08/23/16 at 21:00 Pantoprazole Sodium (Protonix) 40 mg DAILYAC PO ; Start 08/24/16 at 07:30 Phenytoin Sodium (Dilantin) 400 mg QHS PO ; Start 08/23/16 at 21:00 Potassium Chloride (Klor-Con) 20 meq BID PO ; Start 08/23/16 at 21:00 Pravastatin Sodium (Pravachol) 20 mg DAILY PO ; Start 08/24/16 at 09:00 Primidone (Mysoline) 150 mg QID PO Last administered on 08/23/16 17:08; Start 08/23/16 at 13:00 Non-Formulary Medication 2 puff BID IH ; Start 08/23/16 at 21:00; Stop 08/23/16 at 21:00; Status DC Gabapentin (Neurontin) 600 mg TID PO Last administered on 08/23/16 17:08; Start 08/23/16 at 14:00 Mirtazapine (Remeron) 45 mg QHS PO ; Start 08/23/16 at 21:00 Non-Formulary Medication 18 mcg BID IH ; Start 08/23/16 at 21:00; Stop 08/23/16 at 21:00; Status DC Non-Formulary Medication 40 mg DAILY PO ; Start 08/24/16 at 09:00 Budesonide (Pulmicort) 0.5 mg RTBID NEB ; Start 08/23/16 at 20:00 Iohexol (Omnipaque 240 Mg/ml) 50 ml STK-MED ONCE .ROUTE ; Start 08/23/16 at 12: 07; Stop 08/23/16 at 12:08; Status DC Lactulose 20 gm QID PO Last administered on 08/23/16 17:08; Start 08/23/16 at 13:00 Iohexol (Omnipaque 240 Mg/ml) 50 ml 1X ONCE PO Last administered on 08/23/16 14:44; Start 08/23/16 at 14:45; Stop 08/23/16 at 14:46; Status DC Metformin HCl (Glucophage) 500 mg BIDWMEALS PO ; Start 08/25/16 at 17:00 Active Scripts Active Lactulose 10 Gm/15 Ml Solution 30 Ml PO QID Metformin Hcl 500 Mg Tablet 500 Mg PO BIDWMEALS 90 Days Duoneb 0.5-3(2.5) Mg/3 Ml (Albuterol/Ipratropium) 3 Ml Ampul.neb 3 Ml NEB RTQID 60 Days Albuterol Sulfate Neb Soln (Albuterol Sulfate) 2.5 Mg/3 Ml Vial.neb 2.5 Mg NEB PRN Q6HRS PRN 30 Days Reported Spiriva (Tiotropium [place]) 18 Mcg Cap.w.dev 18 Mcg IH BID Remeron (Mirtazapine) 45 Mg Tablet 45 Mg PO QHS Furosemide 80 Mg Tablet 80 Mg PO DAILY Trintellix (Vortioxetine Hydrobromide) 10 Mg Tablet 40 Mg PO DAILY Abilify (Aripiprazole) 5 Mg Tablet 1 Tab PO QHS last dose last night next dose tonight TIME: AM NEXT DOSE DUE: DATE: TOMORROW TIME: AM Hydrocodone-Apap 7.5-325 (Hydrocodone Bit/Acetaminophen) 1 Each Tablet 1 Tab PO PRN Q6HRS PRN LAST DOSE GIVEN: DATE: NOT GIVEN TODAY TIME: NEXT DOSE DUE: DATE: TODAY TIME: IF AND WHEN NEEDED Gralise (Gabapentin) 600 Mg Tab.er.24h 1 Tab PO TID LAST DOSE GIVEN: DATE: TODAY TIME: AFTERNOON NEXT DOSE DUE: DATE: TOMORROW TIME: AM Klor-Con M20 (Potassium Chloride) 20 Meq Tab.er.prt 0.5 Tab PO BID LAST DOSE GIVEN: DATE: TODAY TIME: AM NEXT DOSE DUE: DATE: TOMORROW TIME: AM Flovent 110MCG Hfa (Fluticasone Propionate) 12 Gm Aer.w.adap 2 Puff IH BID LAST DOSE GIVEN: DATE: TIME: NEXT DOSE DUE: DATE: RESTART TODAY TIME: WHEN YOU GET HOME Montelukast Sodium Tablet (Montelukast Sodium) 10 Mg Tablet 10 Mg PO QHS LAST DOSE GIVEN: DATE: TODAY TIME: AM NEXT DOSE DUE: DATE: TOMORROW TIME: AM Protonix (Pantoprazole Sodium) 40 Mg Tablet.dr 40 Mg PO DAILYAC LAST DOSE GIVEN: DATE: TODAY TIME: BEFORE BREAKFAST NEXT DOSE DUE: DATE: TOMORROW TIME: BEFORE BREAKFAST Dilantin (Phenytoin Sodium Extended) 100 Mg Capsule 400 Mg PO QHS LAST DOSE GIVEN: DATE: YESTER TIME: AT BEDTIME NEXT DOSE DUE: DATE: TODAY TIME: AT BEDTIME Aspirin 81 Mg Tab.chew 81 Mg PO DAILY last dose this morning next dose tomorrow LAST DOSE GIVEN: DATE: TODAY TIME: AM NEXT DOSE DUE: DATE: TOMORROW TIME: AM Zetia (Ezetimibe) 10 Mg Tablet 10 Mg PO QHS last dose last night next dose tonight TIME: AM NEXT DOSE DUE: DATE: TOMORROW TIME: AM Pravastatin Sodium 20 Mg Tablet 20 Mg PO DAILY LAST DOSE GIVEN: DATE: TODAY TIME: AM NEXT DOSE DUE: DATE: TOMORROW TIME: AM Primidone 50 Mg Tablet 150 Mg PO QID LAST DOSE GIVEN: DATE: TIME: AT 2 PM NEXT DOSE DUE: DATE: TODAY TIME: EVENING Diazepam 5 Mg Tablet 7.5 Mg PO QHS LAST DOSE GIVEN: DATE: YESTER TIME: AT BEDTIME NEXT DOSE DUE: DATE: TODAY TIME: AT BEDTIME Diazepam 5 Mg Tablet 2.5 Mg PO TIDPC LAST DOSE GIVEN: DATE: TODAY TIME: AFTER LUNCH NEXT DOSE DUE: DATE: TODAY TIME: AFTER DINNER SMILEY BETH MD Aug 23, 2016 19:43
[2016-08-23] MEDS: BUDESONIDE 0.5 MG/2 ML NEBU NEB SCH (19:57)
[2016-08-23] MEDS: PHENYTOIN SODIUM EXTENDED 100 MG CAPSULE PO SCH (20:10)
[2016-08-23] MEDS: MONTELUKAST 10 MG TABLET. PO SCH (20:10)
[2016-08-23] MEDS: ARIPiprazole 5 MG TABLET PO SCH (20:10)
[2016-08-23] MEDS: EZETIMIBE 10 MG TABLET PO SCH (20:11)
[2016-08-23] MEDS: MIRTAZAPINE 15 MG TABLET PO SCH (20:13)
[2016-08-23] MEDS: POTASSIUM CHLORIDE 20 MEQ TABLET.ER. PO SCH (20:44)
[2016-08-23] MEDS ORDERED: NON FORMULARY ITEM (Tiotropium Bromide (Spiriva) 18 MCG) IH SCH (21:00)
[2016-08-23] MEDS ORDERED: NON FORMULARY ITEM (Fluticasone Propionate (Flovent 110MCG Hfa) 2 PUFF) IH SCH (21:00)
[2016-08-23 23:23] VITALS: BP 130/69
--- NOTE | 2016-08-24 01:12 | CONS ---
DATE OF CONSULTATION: 08/23/2016 PSYCHIATRIC CONSULTATION IDENTIFYING DATA: The patient is a 66-year-old female seen in bed 113, [facility], [facility] for a psychiatric consult requested by Dr. Porter on account of the patient's anxiety, depression, confusion and coping issues. The patient seen individually, discussed with nursing staff, reviewed the chart. CHIEF COMPLAINT: "Yes, I am very depressed. I get confused. I have been seeing Dr. Lyn for counseling." HISTORY OF PRESENT ILLNESS: The patient has a history of major depressive disorder, anxiety disorder. Reportedly, she has been treated from a psychiatric standpoint for some time and has been in psychotherapy with Dr. Lyn. She was initially admitted to the senior living facility for physical therapy and occupational therapy, status post fall, but then she was found to have a raised ammonia level and transferred to [address] [place] [address]. She has been quite confused, admits to being depressed. She reluctantly admits to increased memory deficits. No active suicidal or homicidal ideation. PAST PSYCHIATRIC HISTORY: As noted above. CURRENT PSYCHOTROPICS: Remeron 45 mg at bedtime, vortioxetine 40 mg a day, Valium 2.5 mg 3 times a day and 7.5 mg at bedtime, and Abilify 5 mg a day. ALLERGIES: PENICILLIN, SULFA, ENOXAPARIN, AND ERYTHROMYCIN. CODE STATUS: DNR. FAMILY HISTORY: Noncontributory. SOCIAL HISTORY: The patient resides at home with her . No alcohol or drug abuse history is noted. PAST MEDICAL HISTORY: Positive for essential tremor, seizure disorder, shoulder injury, cataract, COPD, repeated falls, vertigo, vestibular neuritis, diabetes mellitus, and hyperlipidemia. MENTAL STATUS EXAM: The patient was seen individually in her room. She admits to being depressed, anxious, somewhat confused, thought the year was 2016, but knew she was at [facility]. 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 Speech has some latency. Attention span short. Language function intact. Mood and affect somewhat depressed, anxious. 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 Rest diagnoses as above. PLAN: From a psychiatric standpoint, I would not recommend changing anything, but I would like to gradually taper the Valium. In fact, we will go ahead and drop the bedtime Valium to 5 mg but I would like to wait a day or two to assess her mental status once the ammonia level is back to normal. As an outpatient, she should followup again with Dr. Lyn and perhaps return to the [facility] for managing her psychotropics. Dr. Porter, thank you for the opportunity to participate in your patient's care. We will follow with you. SMILEY BETH MD DR: CHRIS/elisa JOB#: [id number] / [id number]
[2016-08-24] MEDS: IPRATRPIUM/ALBUTEROL 0.5/2.5MG 3 ML NEBU. NEB SCH ×4 (05:23→20:36)
[2016-08-24 05:24] VITALS: BP 118/78
[2016-08-24 06:08] LABS: BASO % 1 % (0-3); EOS # 0.2 x10^3/uL (0.0-0.7); EOS % 5 % (0-3); HEMATOCRIT 35.3 % (36.0-47.0); LYMPH # 1.8 x10^3/uL (1.0-4.8); LYMPH % 42 % (24-48); MEAN CORPUSCULAR HEMOGLOBIN 31 pg (25-35); MEAN CORPUSCULAR HGB CONC 34 g/dL (31-37); MEAN CORPUSCULAR VOLUME 90 fL (79-100); MONO # 0.4 x10^3/uL (0.0-1.1); MONO % 9 % (0-9); NEUT # 1.9 x10^3uL (1.8-7.7); NEUT % 44 % (31-73); PLATELET COUNT 147 x10^3/uL (140-400); RED BLOOD COUNT 3.91 x10^6/uL (3.50-5.40); WHITE BLOOD COUNT 4.4 x10^3/uL (4.0-11.0)
[2016-08-24 06:23] LABS: ALBUMIN 3.5 g/dL (3.4-5.0); ALBUMIN/GLOBULIN RATIO 0.9 (1.0-1.7); CALCIUM 8.8 mg/dL (8.5-10.1); CREATININE 0.8 mg/dL (0.6-1.0); GFR 71.8; POTASSIUM 3.6 mmol/L (3.5-5.1); TOTAL BILIRUBIN 0.3 mg/dL (0.2-1.0); TOTAL PROTEIN 7.6 g/dL (6.4-8.2)
[2016-08-24] MEDS: PANTOPRAZOLE 40 MG TABLET. PO SCH (08:07)
[2016-08-24] MEDS: FUROSEMIDE 80 MG TABLET PO SCH (08:07)
[2016-08-24] MEDS: PRAVASTATIN 20 MG TABLET. PO SCH (08:07)
[2016-08-24] MEDS: ASPIRIN 81 MG TAB.CHEW PO SCH (08:07)
[2016-08-24] MEDS: PRIMIDONE 50 MG TABLET PO SCH ×4 (08:07→20:17)
[2016-08-24] MEDS: LACTULOSE 20 GM/30 ML SOLUTION. PO SCH ×4 (08:08→20:16)
[2016-08-24] MEDS: POTASSIUM CHLORIDE 20 MEQ TABLET.ER. PO SCH ×2 (08:08→20:17)
[2016-08-24] MEDS: GABAPENTIN 300 MG CAPSULE. PO SCH ×3 (08:08→20:17)
[2016-08-24] MEDS: diazePAM 5 MG TABLET PO SCH ×4 (08:08→20:18)
[2016-08-24] MEDS: VORTIOXETINE HYDROBROMIDE 40 MG PO SCH (08:09)
[2016-08-24] MEDS: BUDESONIDE 0.5 MG/2 ML NEBU NEB SCH ×2 (10:09→20:36)
[2016-08-24 10:22] VITALS: BP 111/82
[2016-08-24 14:46] VITALS: BP 120/74
--- NOTE | 2016-08-24 16:59 | HP ---
ADMIT DATE: 08/23/2016 HISTORY OF PRESENT ILLNESS: The patient is a 66-year-old female who initially was on a swing bed at the hospital; however, began to have acute mental status changes. A evaluation, however, was done on 08/23/2016 and found that the patient had elevated ammonia levels and as a result of this was well over 140, I do not have the exact lab in front of me, but the point is the patient was markedly confused, disoriented, and obviously had some form of hepatic encephalopathy. As a result of this, the patient came in and was transferred to an acute care setting to get her ammonia levels down back in the range and make further evaluation on her for the cause of the hepatic encephalopathy with elevated ammonia levels. PAST MEDICAL HISTORY: She has had cataracts, essential tremors, pseudoseizures, peripheral neuropathy, numbness. She has had malignant melanoma, hypercholesterolemia, multiple elements of bronchitis, pulmonary emboli, multiple pneumonias, sleep apnea, irritable bowel syndromes, abdominal surgery for cholecystectomy and appendectomy, irritable bowel syndrome, morbid obesity, hysterectomy, , incontinence. She has generalized weakness. She has had multiple falls with injuries to her extremities, orthopedic surgery, joint replacement to her right knee, tendinitis, osteoporosis, osteoarthritis, fibromyalgia, has to use a walker at times. The patient has had severe depression in the past, previous suicide attempt, and she also has a [place] filter placed many years ago that is still in place. Her vaccinations are up to date. She has also had history of pressure ulcer. FAMILY HISTORY: Positive for heart disease and diabetes. ALLERGIES: Penicillin, enoxaparin sodium, and erythromycin base compounds. MEDICATIONS: Include albuterol sulfate for her asthma, Abilify 5 mg a day, aspirin, diazepam 5 mg to 7.5 mg at bedtime, Zetia, Flovent, furosemide, gabapentin, Gralise, hydrocodone 7.5/325, DuoNeb treatments, metformin 500 mg b.i.d. for her type 2 diabetes, Remeron, Singulair 10 mg daily, Remeron 45 mg at bedtime, Dilantin 400 mg at bedtime, potassium chloride b.i.d. 20 mEq, Pravachol 20, primidone 50, Spiriva once a day, Trintellix 40 mg daily. SOCIAL HISTORY: No smoking, alcohol, or drug use. REVIEW OF SYSTEMS: The patient is unable to give a real good history, but obviously is very confused, disoriented, very anxious, and just extremely weak, unable to get out of bed and marked muscle weakness. Denies chest pain or shortness of breath. Denies abdominal pain. PHYSICAL EXAMINATION: GENERAL: This is a very ill appearing white female in a moderate amount of distress, noted extremely weak and disoriented. VITAL SIGNS: Blood pressure 118/70, respiratory rate 22, pulse 80, afebrile. HEENT: The patient's head was atraumatic, normocephalic. Eyes: PERRLA without jaundice. The mouth and throat were normal. NECK: Supple, without JVD, carotid, or thyromegaly. LUNGS: Diminished throughout but clear. CARDIOVASCULAR: Regular sinus rhythm. ABDOMEN: Soft, protuberant, nontender. No rebound or guarding. Positive bowel sounds. No hepatosplenomegaly was noted. EXTREMITIES: No clubbing or cyanosis. Trace edema noted. Marked muscle weakness initially noted. The patient is unable to stand on her own without extreme help, markedly confused, disoriented, speech garbled, and very anxious overall. IMPRESSION: Hepatic encephalopathy, elevated ammonia levels, type 2 diabetes and obesity. Otherwise, the patient was brought over to acute medical floor from the skilled unit on 08/23/2016, to be evaluated for hyperammonia levels. The patient since then has been placed on lactulose per protocol and has done remarkably better. She is markedly more alert, stronger, although still needs a walker and assistance. She is markedly at least able to move around and improve mentally to the point where she is alert and oriented, speech fluent and spontaneous and marked improvement from yesterday. The patient's x-rays, her abdominal CT as well as an ultrasound did show some cysts in the liver, but also did show, I believe appear to be a fatty liver infiltrate. Otherwise, the patient's scans, CT and abdominal ultrasound were unremarkable. The patient is making good progress. We will continue on rehab as her ammonia level was down, but not back to normal and we will continue to monitor this and suffer extreme response to the elevated ammonia levels. SCOOTER HOPKINS MD DR: [email or web address]/elisa JOB#: [id number] / [id number]
[2016-08-24 19:08] VITALS: BP 110/62
--- NOTE | 2016-08-24 19:56 | PDOC ---
Exam Morales Demential Exam: Morales Note: Please also refer to the separate dictated note~for this date of service dictated separately.~Patient seen individually. Discussed the patient with Nursing staff reviewed the chart.~Reviewed interim history and current functioning. Reviewed vital signs,~Labs/ Radiology~and current medications noted below. Continue current treatment with the changes noted in the dictated addendum note Assessment: Vital Signs: Vital Signs Date Time Temp Pulse Resp B/P (MAP) Pulse Ox O2 Delivery O2 Flow Rate FiO2 08/24/16 19:08 97.5 84 20 110/62 (78) 95 Nasal Cannula 2.0 I&O Intake and Output 08/24/16 07:00 Intake Total 780 ml Balance 780 ml Intake Oral 780 ml # Voids 3 # Bowel Movements 2 Labs: Laboratory Tests Test 08/24/16 05:39 White Blood Count 4.4 x10^3/uL (4.0-11.0) Red Blood Count 3.91 x10^6/uL (3.50-5.40) Hemoglobin 12.0 g/dL (12.0-15.5) Hematocrit 35.3 % (36.0-47.0) L Mean Corpuscular Volume 90 fL (79-100) Mean Corpuscular Hemoglobin 31 pg (25-35) Mean Corpuscular Hemoglobin Concent 34 g/dL (31-37) Red Cell Distribution Width 17.0 % (11.5-14.5) H Platelet Count 147 x10^3/uL (140-400) Neutrophils (%) (Auto) 44 % (31-73) Lymphocytes (%) (Auto) 42 % (24-48) Monocytes (%) (Auto) 9 % (0-9) Eosinophils (%) (Auto) 5 % (0-3) H Basophils (%) (Auto) 1 % (0-3) Neutrophils # (Auto) 1.9 x10^3uL (1.8-7.7) Lymphocytes # (Auto) 1.8 x10^3/uL (1.0-4.8) Monocytes # (Auto) 0.4 x10^3/uL (0.0-1.1) Eosinophils # (Auto) 0.2 x10^3/uL (0.0-0.7) Basophils # (Auto) 0.0 x10^3/uL (0.0-0.2) Sodium Level 143 mmol/L (136-145) Potassium Level 3.6 mmol/L (3.5-5.1) Chloride Level 102 mmol/L (98-107) Carbon Dioxide Level 34 mmol/L (21-32) H Anion Gap 7 (6-14) Blood Urea Nitrogen 13 mg/dL (7-20) Creatinine 0.8 mg/dL (0.6-1.0) Estimated GFR (Cockcroft-Gault) 71.8 BUN/Creatinine Ratio 16 (6-20) Glucose Level 103 mg/dL (70-99) H Calcium Level 8.8 mg/dL (8.5-10.1) Total Bilirubin 0.3 mg/dL (0.2-1.0) Aspartate Amino Transferase (AST) 31 U/L (15-37) Alanine Aminotransferase (ALT) 27 U/L (14-59) Alkaline Phosphatase 159 U/L (46-116) H Ammonia 42 mcmol/L (11-34) H Total Protein 7.6 g/dL (6.4-8.2) Albumin 3.5 g/dL (3.4-5.0) Albumin/Globulin Ratio 0.9 (1.0-1.7) L Current Medications: Meds: Current Medications Albuterol Sulfate (Ventolin) 2.5 mg PRN Q6HRS PRN NEB SHORTNESS OF BREATH; Start 08/23/16 at 11:30 Aripiprazole (Abilify) 5 mg QHS PO Last administered on 08/23/16 20:10; Start 08/23/16 at 21:00 Aspirin (Children'S Aspirin) 81 mg DAILY PO Last administered on 08/24/16 08: 07; Start 08/24/16 at 09:00 Diazepam (Valium) 2.5 mg TIDPC PO Last administered on 08/24/16 08:08; Start 08/23/16 at 12:30 Diazepam (Valium) 7.5 mg QHS PO ; Start 08/23/16 at 21:00 EZETIMIBE (Zetia) 10 mg QHS PO Last administered on 08/23/16 20:11; Start at 21:00 Furosemide (Lasix) 80 mg DAILY PO Last administered on 08/24/16 08:07; Start 08/24/16 at 09:00 Acetaminophen/ Hydrocodone Bitart (Lortab 7.5/325) 1 tab PRN Q6HRS PRN PO PAIN Last administered on 08/23/16 20:10; Start 08/23/16 at 11:30 Albuterol/ Ipratropium (Duoneb) 3 ml RTQID NEB Last administered on 08/24/16 15:38; Start 08/23/16 at 12:00 Metformin HCl (Glucophage) 500 mg BIDWMEALS PO ; Start 08/23/16 at 17:00; Stop 08/23/16 at 17:00; Status DC Montelukast Sodium (Singulair) 10 mg QHS PO Last administered on 08/23/16 20: 10; Start 08/23/16 at 21:00 Pantoprazole Sodium (Protonix) 40 mg DAILYAC PO Last administered on 08/24/16 08:07; Start 08/24/16 at 07:30 Phenytoin Sodium (Dilantin) 400 mg QHS PO Last administered on 08/23/16 20:10 ; Start 08/23/16 at 21:00 Potassium Chloride (Klor-Con) 20 meq BID PO Last administered on 08/24/16 08: 08; Start 08/23/16 at 21:00 Pravastatin Sodium (Pravachol) 20 mg DAILY PO Last administered on 08/24/16 08 :07; Start 08/24/16 at 09:00 Primidone (Mysoline) 150 mg QID PO Last administered on 08/24/16 17:00; Start 08/23/16 at 13:00 Non-Formulary Medication 2 puff BID IH ; Start 08/23/16 at 21:00; Stop 08/23/16 at 21:00; Status DC Gabapentin (Neurontin) 600 mg TID PO Last administered on 08/24/16 12:58; Start 08/23/16 at 14:00 Mirtazapine (Remeron) 45 mg QHS PO Last administered on 08/23/16 20:13; Start 08/23/16 at 21:00 Non-Formulary Medication 18 mcg BID IH ; Start 08/23/16 at 21:00; Stop 08/23/16 at 21:00; Status DC Non-Formulary Medication 40 mg DAILY PO Last administered on 08/24/16 08:09; Start 08/24/16 at 09:00 Budesonide (Pulmicort) 0.5 mg RTBID NEB Last administered on 08/24/16 10:09; Start 08/23/16 at 20:00 Iohexol (Omnipaque 240 Mg/ml) 50 ml STK-MED ONCE .ROUTE ; Start 08/23/16 at 12: 07; Stop 08/23/16 at 12:08; Status DC Lactulose 20 gm QID PO Last administered on 08/24/16 17:00; Start 08/23/16 at 13:00 Iohexol (Omnipaque 240 Mg/ml) 50 ml 1X ONCE PO Last administered on 08/23/16 14:44; Start 08/23/16 at 14:45; Stop 08/23/16 at 14:46; Status DC Metformin HCl (Glucophage) 500 mg BIDWMEALS PO ; Start 08/25/16 at 17:00 Active Scripts Active Lactulose 10 Gm/15 Ml Solution 30 Ml PO QID Metformin Hcl 500 Mg Tablet 500 Mg PO BIDWMEALS 90 Days Duoneb 0.5-3(2.5) Mg/3 Ml (Albuterol/Ipratropium) 3 Ml Ampul.neb 3 Ml NEB RTQID 60 Days Albuterol Sulfate Neb Soln (Albuterol Sulfate) 2.5 Mg/3 Ml Vial.neb 2.5 Mg NEB PRN Q6HRS PRN 30 Days Reported Spiriva (Tiotropium [place]) 18 Mcg Cap.w.dev 18 Mcg IH BID Remeron (Mirtazapine) 45 Mg Tablet 45 Mg PO QHS Furosemide 80 Mg Tablet 80 Mg PO DAILY Trintellix (Vortioxetine Hydrobromide) 10 Mg Tablet 40 Mg PO DAILY Abilify (Aripiprazole) 5 Mg Tablet 1 Tab PO QHS last dose last night next dose tonight TIME: AM NEXT DOSE DUE: DATE: TOMORROW TIME: AM Hydrocodone-Apap 7.5-325 (Hydrocodone Bit/Acetaminophen) 1 Each Tablet 1 Tab PO PRN Q6HRS PRN LAST DOSE GIVEN: DATE: NOT GIVEN TODAY TIME: NEXT DOSE DUE: DATE: TODAY TIME: IF AND WHEN NEEDED Gralise (Gabapentin) 600 Mg Tab.er.24h 1 Tab PO TID LAST DOSE GIVEN: DATE: TODAY TIME: AFTERNOON NEXT DOSE DUE: DATE: TOMORROW TIME: AM Klor-Con M20 (Potassium Chloride) 20 Meq Tab.er.prt 0.5 Tab PO BID LAST DOSE GIVEN: DATE: TODAY TIME: AM NEXT DOSE DUE: DATE: TOMORROW TIME: AM Flovent 110MCG Hfa (Fluticasone Propionate) 12 Gm Aer.w.adap 2 Puff IH BID LAST DOSE GIVEN: DATE: TIME: NEXT DOSE DUE: DATE: RESTART TODAY TIME: WHEN YOU GET HOME Montelukast Sodium Tablet (Montelukast Sodium) 10 Mg Tablet 10 Mg PO QHS LAST DOSE GIVEN: DATE: TODAY TIME: AM NEXT DOSE DUE: DATE: TOMORR TIME: AM Protonix (Pantoprazole Sodium) 40 Mg Tablet.dr 40 Mg PO DAILYAC LAST DOSE GIVEN: DATE: TODAY TIME: BEFORE BREAKFAST NEXT DOSE DUE: DATE: TOMORROW TIME: BEFORE BREAKFAST Dilantin (Phenytoin Sodium Extended) 100 Mg Capsule 400 Mg PO QHS LAST DOSE GIVEN: DATE: YESTERDAY TIME: AT BEDTIME NEXT DOSE DUE: DATE: TODAY TIME: AT BEDTIME Aspirin 81 Mg Tab.chew 81 Mg PO DAILY last dose this morning next dose tomorrow LAST DOSE GIVEN: DATE: TODAY TIME: AM NEXT DOSE DUE: DATE: TOMORR TIME: AM Zetia (Ezetimibe) 10 Mg Tablet 10 Mg PO QHS last dose last night next dose tonight TIME: AM NEXT DOSE DUE: DATE: TOMORR TIME: AM Pravastatin Sodium 20 Mg Tablet 20 Mg PO DAILY LAST DOSE GIVEN: DATE: TODAY TIME: AM NEXT DOSE DUE: DATE: TOMORROW TIME: AM Primidone 50 Mg Tablet 150 Mg PO QID LAST DOSE GIVEN: DATE: TODAY TIME: AT 2 PM NEXT DOSE DUE: DATE: TODAY TIME: EVENING Diazepam 5 Mg Tablet 7.5 Mg PO QHS LAST DOSE GIVEN: DATE: YESTER TIME: AT BEDTIME NEXT DOSE DUE: DATE: TODAY TIME: AT BEDTIME Diazepam 5 Mg Tablet 2.5 Mg PO TIDPC LAST DOSE GIVEN: DATE: TODAY TIME: AFTER LUNCH NEXT DOSE DUE: DATE: TODAY TIME: AFTER DINNER Diagnosis: Problems: (1) Mood disorder SMILEY BETH MD Aug 24, 2016 19:56
[2016-08-24] MEDS: ARIPiprazole 5 MG TABLET PO SCH (20:16)
[2016-08-24] MEDS: MONTELUKAST 10 MG TABLET. PO SCH (20:16)
[2016-08-24] MEDS: PHENYTOIN SODIUM EXTENDED 100 MG CAPSULE PO SCH (20:17)
[2016-08-24] MEDS: EZETIMIBE 10 MG TABLET PO SCH (20:18)
[2016-08-24] MEDS: MIRTAZAPINE 15 MG TABLET PO SCH (20:18)
[2016-08-25] MEDS: IPRATRPIUM/ALBUTEROL 0.5/2.5MG 3 ML NEBU. NEB SCH ×4 (05:22→20:04)
[2016-08-25 05:31] VITALS: BP 120/74
[2016-08-25] MEDS: PANTOPRAZOLE 40 MG TABLET. PO SCH (07:30)
[2016-08-25] MEDS: diazePAM 5 MG TABLET PO SCH ×4 (08:30→20:28)
[2016-08-25] MEDS: FUROSEMIDE 80 MG TABLET PO SCH (09:00)
[2016-08-25] MEDS: PRAVASTATIN 20 MG TABLET. PO SCH (09:00)
[2016-08-25] MEDS: ASPIRIN 81 MG TAB.CHEW PO SCH (09:00)
[2016-08-25] MEDS: PRIMIDONE 50 MG TABLET PO SCH ×4 (09:00→20:30)
[2016-08-25] MEDS: LACTULOSE 20 GM/30 ML SOLUTION. PO SCH ×4 (09:00→20:26)
[2016-08-25] MEDS: POTASSIUM CHLORIDE 20 MEQ TABLET.ER. PO SCH ×2 (09:00→20:30)
[2016-08-25] MEDS: GABAPENTIN 300 MG CAPSULE. PO SCH ×3 (09:00→20:28)
[2016-08-25] MEDS: VORTIOXETINE HYDROBROMIDE 40 MG PO SCH (09:00)
[2016-08-25 09:08] LABS: BASO % 1 % (0-3); EOS # 0.2 x10^3/uL (0.0-0.7); EOS % 5 % (0-3); HEMOGLOBIN 12.1 g/dL (12.0-15.5); LYMPH # 1.5 x10^3/uL (1.0-4.8); LYMPH % 36 % (24-48); MEAN CORPUSCULAR HEMOGLOBIN 31 pg (25-35); MEAN CORPUSCULAR HGB CONC 34 g/dL (31-37); MEAN CORPUSCULAR VOLUME 91 fL (79-100); MONO # 0.4 x10^3/uL (0.0-1.1); MONO % 9 % (0-9); NEUT # 2.1 x10^3uL (1.8-7.7); NEUT % 50 % (31-73); PLATELET COUNT 144 x10^3/uL (140-400); RED BLOOD COUNT 3.96 x10^6/uL (3.50-5.40); RED CELL DISTRIBUTION WIDTH 16.8 % (11.5-14.5); WHITE BLOOD COUNT 4.3 x10^3/uL (4.0-11.0)
[2016-08-25 09:25] LABS: ALBUMIN 3.7 g/dL (3.4-5.0); CALCIUM 8.5 mg/dL (8.5-10.1); GFR 55.5; TOTAL BILIRUBIN 0.3 mg/dL (0.2-1.0); TOTAL PROTEIN 7.4 g/dL (6.4-8.2)
[2016-08-25] MEDS: rifAXIMin 550 MG TABLET PO SCH ×2 (10:30→20:30)
[2016-08-25 10:31] VITALS: BP 114/74
[2016-08-25] MEDS ORDERED: LACTULOSE 20 GM/30 ML SOLUTION. PO ONE (11:00)
[2016-08-25] MEDS: BUDESONIDE 0.5 MG/2 ML NEBU NEB SCH ×2 (11:01→20:04)
--- NOTE | 2016-08-25 13:12 | PN ---
DATE: 08/24/2016 PSYCHIATRIC PROGRESS NOTE This is a late entry of 08/24/2016 covers elements not covered in my initial note. SUBJECTIVE: Overall, per nursing report, the patient is doing a little better. Cognitively she seems a little bit clearer. Speech is less slurred. Valium is being tapered. This note covers elements not covered in my initial note. MENTAL STATUS EXAM: The patient was seen in her room. REVIEW OF SYSTEMS: She turned the television down to visit with me. MENTAL STATUS EXAM: Speech is still slightly slurred, but she seems cognitively clearer. No psychotic symptoms, suicidal, or homicidal ideation. Attention span short. Still complains of anxiety. We talked at some length about the need to use minimal amounts of Valium if any at all. No clear psychotic symptoms, suicidal, or homicidal ideation. LABORATORY DATA: Reviewed. IMPRESSION: History of major depressive disorder; anxiety disorder, unspecified; cognitive disorder, unspecified. PLAN: I would recommend continuing to taper the Valium. Make further adjustments in her psychotropics as clinically indicated. She remains on Abilify 5 mg a day, Remeron 45 mg at bedtime, vortioxetine mg a day. We will drop the at bedtime Valium to 5 mg. SMILEY BETH MD DR: CHRIS/elisa JOB#: [id number] / [id number]
[2016-08-25] MEDS ORDERED: LACTULOSE 20 GM/30 ML SOLUTION. PO SCH (14:45)
[2016-08-25 17:00] VITALS: BP 176/85
[2016-08-25] MEDS: metFORMIN 500 MG TABLET PO SCH (17:00)
[2016-08-25] MEDS: IV NORMAL SALINE 1,000ML 1,000 ML IV SCH (17:00)
[2016-08-25 20:09] VITALS: BP 130/81
[2016-08-25] MEDS: MONTELUKAST 10 MG TABLET. PO SCH (20:28)
[2016-08-25] MEDS: ARIPiprazole 5 MG TABLET PO SCH (20:28)
[2016-08-25] MEDS: MIRTAZAPINE 15 MG TABLET PO SCH (20:28)
[2016-08-25] MEDS: PHENYTOIN SODIUM EXTENDED 100 MG CAPSULE PO SCH (20:28)
[2016-08-25] MEDS: EZETIMIBE 10 MG TABLET PO SCH (20:29)
[2016-08-25] MEDS: HYDROcodone/APAP 7.5/325MG 1 TAB TABLET PO PRN ×2 (20:29→21:36)
--- NOTE | 2016-08-25 21:57 | PDOC ---
Exam Morales Demential Exam: Morales Note: Please also refer to the separate dictated note~for this date of service dictated separately.~Patient seen individually. Discussed the patient with Nursing staff reviewed the chart.~Reviewed interim history and current functioning. Reviewed vital signs,~Labs/ Radiology~and current medications noted below. Continue current treatment with the changes noted in the dictated addendum note Assessment: Vital Signs: Vital Signs Date Time Temp Pulse Resp B/P (MAP) Pulse Ox O2 Delivery O2 Flow Rate FiO2 08/25/16 21:29 98 Nasal Cannula 2.0 08/25/16 20:29 20 08/25/16 20:09 97.5 79 130/81 (97) I&O Intake and Output 08/25/16 07:00 Intake Total 2040 ml Balance 2040 ml Intake Oral 2040 ml # Voids 7 Labs: Laboratory Tests Test 08/25/16 07:37 08/25/16 08:55 08/25/16 11:39 Glucose (Fingerstick) 118 mg/dL (70-99) H 123 mg/dL (70-99) H White Blood Count 4.3 x10^3/uL (4.0-11.0) Red Blood Count 3.96 x10^6/uL (3.50-5.40) Hemoglobin 12.1 g/dL (12.0-15.5) Hematocrit 36.0 % (36.0-47.0) Mean Corpuscular Volume 91 fL (79-100) Mean Corpuscular Hemoglobin 31 pg (25-35) Mean Corpuscular Hemoglobin Concent 34 g/dL (31-37) Red Cell Distribution Width 16.8 % (11.5-14.5) H Platelet Count 144 x10^3/uL (140-400) Neutrophils (%) (Auto) 50 % (31-73) Lymphocytes (%) (Auto) 36 % (24-48) Monocytes (%) (Auto) 9 % (0-9) Eosinophils (%) (Auto) 5 % (0-3) H Basophils (%) (Auto) 1 % (0-3) Neutrophils # (Auto) 2.1 x10^3uL (1.8-7.7) Lymphocytes # (Auto) 1.5 x10^3/uL (1.0-4.8) Monocytes # (Auto) 0.4 x10^3/uL (0.0-1.1) Eosinophils # (Auto) 0.2 x10^3/uL (0.0-0.7) Basophils # (Auto) 0.0 x10^3/uL (0.0-0.2) Sodium Level 142 mmol/L (136-145) Potassium Level 4.0 mmol/L (3.5-5.1) Chloride Level 100 mmol/L (98-107) Carbon Dioxide Level 31 mmol/L (21-32) Anion Gap 11 (6-14) Blood Urea Nitrogen 12 mg/dL (7-20) Creatinine 1.0 mg/dL (0.6-1.0) Estimated GFR (Cockcroft-Gault) 55.5 BUN/Creatinine Ratio 12 (6-20) Glucose Level 201 mg/dL (70-99) H Calcium Level 8.5 mg/dL (8.5-10.1) Total Bilirubin 0.3 mg/dL (0.2-1.0) Aspartate Amino Transferase (AST) 33 U/L (15-37) Alanine Aminotransferase (ALT) 30 U/L (14-59) Alkaline Phosphatase 172 U/L (46-116) H Ammonia 76 mcmol/L (11-34) H Total Protein 7.4 g/dL (6.4-8.2) Albumin 3.7 g/dL (3.4-5.0) Albumin/Globulin Ratio 1.0 (1.0-1.7) Current Medications: Meds: Current Medications Albuterol Sulfate (Ventolin) 2.5 mg PRN Q6HRS PRN NEB SHORTNESS OF BREATH; Start 08/23/16 at 11:30 Aripiprazole (Abilify) 5 mg QHS PO Last administered on 08/25/16 20:28; Start 08/23/16 at 21:00 Aspirin (Children'S Aspirin) 81 mg DAILY PO Last administered on 08/25/16 09: 00; Start 08/24/16 at 09:00 Diazepam (Valium) 2.5 mg TIDPC PO Last administered on 08/25/16 17:30; Start 08/23/16 at 12:30 Diazepam (Valium) 7.5 mg QHS PO ; Start 08/23/16 at 21:00; Stop 08/25/16 at 09: 09; Status DC EZETIMIBE (Zetia) 10 mg QHS PO Last administered on 08/25/16 20:29; Start at 21:00 Furosemide (Lasix) 80 mg DAILY PO Last administered on 08/25/16 09:00; Start 08/24/16 at 09:00 Acetaminophen/ Hydrocodone Bitart (Lortab 7.5/325) 1 tab PRN Q6HRS PRN PO PAIN Last administered on 08/25/16 20:29; Start 08/23/16 at 11:30 Albuterol/ Ipratropium (Duoneb) 3 ml RTQID NEB Last administered on 08/25/16 20:04; Start 08/23/16 at 12:00 Metformin HCl (Glucophage) 500 mg BIDWMEALS PO ; Start 08/23/16 at 17:00; Stop 08/23/16 at 17:00; Status DC Montelukast Sodium (Singulair) 10 mg QHS PO Last administered on 08/25/16 20: 28; Start 08/23/16 at 21:00 Pantoprazole Sodium (Protonix) 40 mg DAILYAC PO Last administered on 08/25/16 07:30; Start 08/24/16 at 07:30 Phenytoin Sodium (Dilantin) 400 mg QHS PO Last administered on 08/25/16 20:28 ; Start 08/23/16 at 21:00 Potassium Chloride (Klor-Con) 20 meq BID PO Last administered on 08/25/16 20: 30; Start 08/23/16 at 21:00 Pravastatin Sodium (Pravachol) 20 mg DAILY PO Last administered on 08/25/16 09 :00; Start 08/24/16 at 09:00 Primidone (Mysoline) 150 mg QID PO Last administered on 08/25/16 20:30; Start 08/23/16 at 13:00 Non-Formulary Medication 2 puff BID IH ; Start 08/23/16 at 21:00; Stop 08/23/16 at 21:00; Status DC Gabapentin (Neurontin) 600 mg TID PO Last administered on 08/25/16 20:28; Start 08/23/16 at 14:00 Mirtazapine (Remeron) 45 mg QHS PO Last administered on 08/25/16 20:28; Start 08/23/16 at 21:00 Non-Formulary Medication 18 mcg BID IH ; Start 08/23/16 at 21:00; Stop 08/23/16 at 21:00; Status DC Non-Formulary Medication 40 mg DAILY PO Last administered on 08/25/16 09:00; Start 08/24/16 at 09:00 Budesonide (Pulmicort) 0.5 mg RTBID NEB Last administered on 08/25/16 20:04; Start 08/23/16 at 20:00 Iohexol (Omnipaque 240 Mg/ml) 50 ml STK-MED ONCE .ROUTE ; Start 08/23/16 at 12: 07; Stop 08/23/16 at 12:08; Status DC Lactulose 20 gm QID PO Last administered on 08/25/16 09:00; Start 08/23/16 at 13:00; Stop 08/25/16 at 10:19; Status DC Iohexol (Omnipaque 240 Mg/ml) 50 ml 1X ONCE PO Last administered on 08/23/16 14:44; Start 08/23/16 at 14:45; Stop 08/23/16 at 14:46; Status DC Metformin HCl (Glucophage) 500 mg BIDWMEALS PO Last administered on 08/25/16 17:00; Start 08/25/16 at 17:00 Diazepam (Valium) 5 mg QHS PO Last administered on 08/25/16 20:28; Start 08/25 at 21:00 Lactulose 45 gm QID PO Last administered on 08/25/16 20:26; Start 08/25/16 at 13:00 Rifaximin (Xifaxan) 550 mg Q12HR PO Last administered on 08/25/16 20:30; Start 08/25/16 at 10:30 Lactulose 15 gm 1X ONCE PO Last administered on 08/25/16 10:59; Start at 11:00; Stop 08/25/16 at 11:01; Status DC Lactulose 200 gm 1X PO ; Start 08/25/16 at 14:45 Sodium Chloride 1,000 ml @ 75 mls/hr [id number] IV Last administered on 6/24/ 17at 17:00; Start 08/25/16 at 17:00 Active Scripts Active Lactulose 10 Gm/15 Ml Solution 30 Ml PO QID Metformin Hcl 500 Mg Tablet 500 Mg PO BIDWMEALS 90 Days Duoneb 0.5-3(2.5) Mg/3 Ml (Albuterol/Ipratropium) 3 Ml Ampul.neb 3 Ml NEB RTQID 60 Days Albuterol Sulfate Neb Soln (Albuterol Sulfate) 2.5 Mg/3 Ml Vial.neb 2.5 Mg NEB PRN Q6HRS PRN 30 Days Reported Spiriva (Tiotropium [place]) 18 Mcg Cap.w.dev 18 Mcg IH BID Remeron (Mirtazapine) 45 Mg Tablet 45 Mg PO QHS Furosemide 80 Mg Tablet 80 Mg PO DAILY Trintellix (Vortioxetine Hydrobromide) 10 Mg Tablet 40 Mg PO DAILY Abilify (Aripiprazole) 5 Mg Tablet 1 Tab PO QHS last dose last night next dose tonight TIME: AM NEXT DOSE DUE: DATE: TOMORROW TIME: AM Hydrocodone-Apap 7.5-325 (Hydrocodone Bit/Acetaminophen) 1 Each Tablet 1 Tab PO PRN Q6HRS PRN LAST DOSE GIVEN: DATE: NOT GIVEN TODAY TIME: NEXT DOSE DUE: DATE: TODAY TIME: IF AND WHEN NEEDED Gralise (Gabapentin) 600 Mg Tab.er.24h 1 Tab PO TID LAST DOSE GIVEN: DATE: TODAY TIME: AFTERNOON NEXT DOSE DUE: DATE: TOMORROW TIME: AM Klor-Con M20 (Potassium Chloride) 20 Meq Tab.er.prt 0.5 Tab PO BID LAST DOSE GIVEN: DATE: TODAY TIME: AM NEXT DOSE DUE: DATE: TOMORROW TIME: AM Flovent 110MCG Hfa (Fluticasone Propionate) 12 Gm Aer.w.adap 2 Puff IH BID LAST DOSE GIVEN: DATE: TIME: NEXT DOSE DUE: DATE: RESTART TODAY TIME: WHEN YOU GET HOME Montelukast Sodium Tablet (Montelukast Sodium) 10 Mg Tablet 10 Mg PO QHS LAST DOSE GIVEN: DATE: TODAY TIME: AM NEXT DOSE DUE: DATE: TOMORROW TIME: AM Protonix (Pantoprazole Sodium) 40 Mg Tablet.dr 40 Mg PO DAILYAC LAST DOSE GIVEN: DATE: TODAY TIME: BEFORE BREAKFAST NEXT DOSE DUE: DATE: TOMORROW TIME: BEFORE BREAKFAST Dilantin (Phenytoin Sodium Extended) 100 Mg Capsule 400 Mg PO QHS LAST DOSE GIVEN: DATE: YESTER TIME: AT BEDTIME NEXT DOSE DUE: DATE: TODAY TIME: AT BEDTIME Aspirin 81 Mg Tab.chew 81 Mg PO DAILY last dose this morning next dose tomorrow LAST DOSE GIVEN: DATE: TODAY TIME: AM NEXT DOSE DUE: DATE: TOMORR TIME: AM Zetia (Ezetimibe) 10 Mg Tablet 10 Mg PO QHS last dose last night next dose tonight TIME: AM NEXT DOSE DUE: DATE: TOMORR TIME: AM Pravastatin Sodium 20 Mg Tablet 20 Mg PO DAILY LAST DOSE GIVEN: DATE: TODAY TIME: AM NEXT DOSE DUE: DATE: ORR TIME: AM Primidone 50 Mg Tablet 150 Mg PO QID LAST DOSE GIVEN: DATE: TODAY TIME: AT 2 PM NEXT DOSE DUE: DATE: TODAY TIME: EVENING Diazepam 5 Mg Tablet 7.5 Mg PO QHS LAST DOSE GIVEN: DATE: YES TIME: AT BEDTIME NEXT DOSE DUE: DATE: TODAY TIME: AT BEDTIME Diazepam 5 Mg Tablet 2.5 Mg PO TIDPC LAST DOSE GIVEN: DATE: TODAY TIME: AFTER LUNCH NEXT DOSE DUE: DATE: TODAY TIME: AFTER DINNER Diagnosis: Problems: (1) Mood disorder SMILEY BETH MD Aug 25, 2016 21:57
--- NOTE | 2016-08-25 23:06 | CONS ---
DATE OF CONSULTATION: 08/25/2016 REFERRING PHYSICIAN: Tc Porter MD. REASON FOR CONSULTATION: Mental status changes. HISTORY OF PRESENT ILLNESS: This is a 66-year-old right-handed white female, who was transferred from a swing bed to [facility] on 08/23/2016 after she was found to be confused and disoriented. Apparently, the patient was found to have a very high ammonia level, probably above 140. She was diagnosed with hepatic encephalopathy. Aggressive management for that was performed by Dr. Porter and ammonia level dropped yesterday to 42, but today ammonia level was elevated again at 76. The patient has been seen by Dr. Barron because of increased anxiety and severe depressions in the last few days. She told me this morning she wants to jump out of the window. She is very depressed and anxious about her physical health and as well as for elevated ammonia level. She also complains of unsteady gait and tendency to fall backwards. She denies headaches, visual disturbances, nausea, vomiting, chest pain or palpitations. PAST MEDICAL HISTORY: Quite extensive including COPD, seizure disorder, essential tremor, diabetes mellitus, peripheral neuropathy, malignant melanoma, obstructive sleep apnea, irritable bowel syndrome, osteoporosis and osteoarthritis, fibromyalgia, depression and anxiety, GERD, chronic lower back pain secondary to fracture at L1-L2 and pulmonary embolism. PAST SURGICAL HISTORY: Significant for abdominal surgery, , hysterectomy. FAMILY HISTORY: Positive for diabetes mellitus and heart disease. SOCIAL HISTORY: The patient lives with her at home. She denies smoking, alcohol drinking, or illicit drug use. ALLERGIES: PENICILLIN, ENOXAPARIN, SODIUM, ERYTHROMYCIN BASE COMPOUNDS. MEDICATIONS: Please see MRAD. Please see long listing on MRAD. REVIEW OF SYSTEMS: As mentioned above in history of present illness, otherwise unremarkable. PHYSICAL EXAMINATION: GENERAL: Obese white female, not in acute distress. She weighs 240 pounds. HEENT: Normocephalic, atraumatic, otherwise unremarkable. NECK: Supple. Negative for carotid bruit, lymphadenopathy or thyromegaly. LUNGS: With diminished breath sound. CARDIOVASCULAR: Regular rate and rhythm, normal S1, S2. ABDOMEN: Soft. Bowel sounds positive. EXTREMITIES: Negative for cyanosis or clubbing, but trace edema was noted. NEUROLOGICAL EXAM: Mental Status: The patient is alert and oriented to time and place. She is very anxious and depressed. Speech is fluent. There is no language dysfunction. Memory, judgment and abstract thinking are fair. The patient denies hallucination or delusion. Mild postural and kinetic tremors were noted in the upper extremities. CRANIAL NERVES: Visual bruce are full. The pupils are reactive to light and accommodation. The extraocular movements are intact. There is no nystagmus. There is no facial motor or sensory deficit. Hearing is intact bilaterally. The palate is elevated symmetrically. Sternocleidomastoid muscles are powerful bilaterally. The patient shrugs her shoulders symmetrically and protrudes her tongue in the midline without fasciculation or atrophy. Motor examination revealed no focal muscle bulk was seen. The tone is normal. The strength is 4/5 throughout. Sensory examination revealed diminished pinprick and light touch senses in patchy distributions in both lower extremities. Deep tendon reflexes were symmetric with absent Achilles responses bilaterally. Gait: The patient uses a walker for ambulation, but otherwise the stance is unsteady. LABORATORY DATA: CBC revealed white blood cells of 4.3 thousand, hemoglobin 12.1, hematocrit 36, platelet count 144,000. Chemistry revealed sodium 142, potassium 4, chloride 100, CO2 of 31, BUN 12, creatinine 1, glucose 201. Calcium is 8.5. Alkaline phosphatase is elevated at 172. Ammonia level is 76. IMPRESSION: 1. Acute encephalopathy probably metabolic type probably due to hyperammonia level. 2. Multiple medical problems as outlined above. RECOMMENDATIONS: 1. We will change primidone to 100 mg q.i.d. 2. Continue with current management and medication initiated by Dr. Tc Porter. 3. Dr. Barron, our psychiatrist has been seeing the patient. M Alvaro CASTILLO MD DR: TOLU/elisa JOB#: [id number] / [id number]
[2016-08-25 23:32] VITALS: BP 131/72
[2016-08-26] MEDS: IV NORMAL SALINE 1,000ML 1,000 ML IV SCH ×2 (05:15→19:40)
[2016-08-26] MEDS: IPRATRPIUM/ALBUTEROL 0.5/2.5MG 3 ML NEBU. NEB SCH ×4 (05:22→20:00)
[2016-08-26 05:29] VITALS: BP 130/69
[2016-08-26] MEDS: PANTOPRAZOLE 40 MG TABLET. PO SCH (07:50)
[2016-08-26] MEDS: metFORMIN 500 MG TABLET PO SCH ×2 (07:50→17:05)
[2016-08-26] MEDS: diazePAM 5 MG TABLET PO SCH ×4 (08:47→21:36)
[2016-08-26] MEDS: LACTULOSE 20 GM/30 ML SOLUTION. PO SCH ×5 (08:47→21:35)
[2016-08-26] MEDS: GABAPENTIN 300 MG CAPSULE. PO SCH ×3 (08:48→21:35)
[2016-08-26] MEDS: PRIMIDONE 50 MG TABLET PO SCH ×4 (08:48→21:38)
[2016-08-26] MEDS: FUROSEMIDE 80 MG TABLET PO SCH (08:48)
[2016-08-26] MEDS: rifAXIMin 550 MG TABLET PO SCH ×2 (08:48→21:37)
[2016-08-26] MEDS: POTASSIUM CHLORIDE 20 MEQ TABLET.ER. PO SCH ×2 (08:48→21:36)
[2016-08-26] MEDS: ASPIRIN 81 MG TAB.CHEW PO SCH (08:48)
[2016-08-26] MEDS: PRAVASTATIN 20 MG TABLET. PO SCH (08:49)
[2016-08-26] MEDS: VORTIOXETINE HYDROBROMIDE 40 MG PO SCH (08:49)
--- NOTE | 2016-08-26 09:27 | PN ---
DATE: 08/25/2016 This is a late entry for 08/25/2016. I was called by the nursing staff on [facility] that this is the patient who is making active suicidal statements, wanting to jump out of the window. Apparently, she has been extremely distressed about her continued elevation of ammonia level. States she would rather end her life. She is also being confused, anxious, restless. Met with the patient's daughter who is a psychologist in [place] and also met with her and the patient individually, discussed with nursing staff, reviewed the chart. Temperature 97.7, pulse 98, BP 176/85. REVIEW OF SYSTEMS: Shortness of breath, on 3 liters by nasal cannula, tiredness, confusion. No CV, , GI system symptoms on review. MENTAL STATUS EXAM: The patient is oriented to herself and situation. She is quite anxious, restless, distractable. Admits to wanting to end her life, but denied she would hurt herself directly. The family is very keen to have her on one-on-one status during this time and have requested that with the nursing staffMallory. Speech is slightly slurred at times. Abstraction fair, computation impaired, attention span short, language function intact. Mood and affect dysphoric. LABORATORY DATA: Reviewed. IMPRESSION: Major depressive disorder; anxiety disorder, unspecified; cognitive disorder, unspecified; rule out bipolar 1 disorder, unspecified. PLAN: Continue current psychotropics including Valium, Abilify, Remeron and Trintellix. Given the fact that the patient is on a combination of Remeron and Trintellix, we will go ahead and reduce the Remeron down to 7.5 mg p.o. at bedtime to avoid any drug interactions with Trintellix and Valium was previously reduced. Adjust further as clinically indicated. She is not sleeping well at night with reduction of Remeron, we will use trazodone p.r.n. SMILEY BETH MD DR: CHRIS/elisa JOB#: [id number] / [id number]
[2016-08-26] MEDS: BUDESONIDE 0.5 MG/2 ML NEBU NEB SCH ×2 (09:30→20:00)
[2016-08-26 10:32] VITALS: BP 127/72
--- NOTE | 2016-08-26 11:06 | RAD ---
ACUTE ABDOMEN SERIES History: CONSTIPATION/ELEVATED AMMONIA LEVELS abdominal pain. Comparison: AP chest, 07/16/2016. CT abdomen and pelvis 08/23/2016 Findings: Frontal chest and supine and upright views of the abdomen. Cardiomediastinal silhouette is normal. There is no pleural effusion or pneumothorax. There is discoid atelectasis in the left midlung. Minimal atelectasis or scarring in the right lower lobe. No pneumoperitoneum is identified. There are several air-fluid levels on the upright image. Cholecystectomy clips. IVC filter area Air-filled dilated transverse colon. Multiple phleboliths in the pelvis. IMPRESSION: 1. Mild discoid atelectasis left midlung and right lung base. 2. Nonobstructive bowel gas pattern. Colonic pseudoobstruction or ileus are considerations.
[2016-08-26 14:06] VITALS: BP 133/77
--- NOTE | 2016-08-26 18:44 | PN ---
DATE: 08/26/2016 SUBJECTIVE: The patient denies any new medical or neurological complaints; however, she complains of intermittent double vision. She denies headaches, vertigo, chest pain, shortness of breath or palpitation, dysarthria, or dysphagia. OBJECTIVE: GENERAL: Well-developed, well-nourished white female, not in acute distress. VITAL SIGNS: Blood pressure 130/69, respiratory rate 20, pulse is 75 and regular, temperature 97.4, oxygen saturation 100% on 3 liters via nasal cannula. HEENT: Normocephalic, atraumatic; otherwise, unremarkable. NECK: Supple. Negative for carotid bruit, lymphadenopathy, JVD or thyromegaly. LUNGS: With diminished breath sounds. No wheezing or rales. CARDIOVASCULAR: Regular rhythm, normal S1, S2. ABDOMEN: Soft. Bowel sounds positive. EXTREMITIES: Positive for trace edema. NEUROLOGIC: The patient is alert and oriented x 2. Speech is fluent. There is no language dysfunction; otherwise, unremarkable. Cranial nerves are intact. No focal muscle bulk was seen. The tone is normal. The strength is 4/5 throughout. Sensory examination revealed diminished pinprick and light touch senses in patchy distributions. Deep tendon reflexes were symmetric and active with absent Achilles responses. Gait not tested. LABORATORY DATA: CBC revealed white blood cells of 4.3 thousand, hemoglobin 12.1, hematocrit 36, platelet count 144,000. Chemistry revealed sodium of 142, potassium of 4, chloride 100, CO2 is 31, BUN 12, creatinine 1, glucose 201, calcium 8.5, ammonia level is 26. IMPRESSION: 1. Acute encephalopathy -- improved, likely due to elevated ammonia level, which has been within normal range today. 2. Multiple psychiatric problems include anxiety and major depression. 3. Multiple medical problems include chronic obstructive pulmonary disease, essential tremor, hyperlipidemia, peripheral neuropathy, diabetes mellitus and seizure disorder. RECOMMENDATIONS: 1. We will continue with primidone 100 mg q.i.d. 2. Continue with current management initiated by Dr. Barron. M Alvaro CASTILLO MD DR: TOLU/elisa JOB#: [id number] / [id number]
[2016-08-26 20:23] VITALS: BP 118/68
[2016-08-26] MEDS ORDERED: MIRTAZAPINE 7.5 MG TABLET. PO SCH (21:00)
--- NOTE | 2016-08-26 21:23 | PDOC ---
Exam Morales Demential Exam: Morales Note: Please also refer to the separate dictated note~for this date of service dictated separately.~Patient seen individually. Discussed the patient with Nursing staff reviewed the chart.~Reviewed interim history and current functioning. Reviewed vital signs,~Labs/ Radiology~and current medications noted below. Continue current treatment with the changes noted in the dictated addendum note Assessment: Vital Signs: Vital Signs Date Time Temp Pulse Resp B/P (MAP) Pulse Ox O2 Delivery O2 Flow Rate FiO2 08/26/16 20:25 Nasal Cannula 2.0 08/26/16 20:23 98.9 85 20 118/68 (85) 94 I&O Intake and Output 08/26/16 07:00 Intake Total 3100.66 ml Balance 3100.66 ml Intake Oral 2220 ml IV Total 880.66 ml # Voids 6 # Bowel Movements 6 Labs: Laboratory Tests Test 08/26/16 06:43 08/26/16 07:39 Ammonia 26 mcmol/L (11-34) Glucose (Fingerstick) 105 mg/dL (70-99) H Current Medications: Meds: Current Medications Albuterol Sulfate (Ventolin) 2.5 mg PRN Q6HRS PRN NEB SHORTNESS OF BREATH; Start 08/23/16 at 11:30 Aripiprazole (Abilify) 5 mg QHS PO Last administered on 08/25/16 20:28; Start 08/23/16 at 21:00 Aspirin (Children'S Aspirin) 81 mg DAILY PO Last administered on 08/26/16 08: 48; Start 08/24/16 at 09:00 Diazepam (Valium) 2.5 mg TIDPC PO Last administered on 08/26/16 17:06; Start 08/23/16 at 12:30 Diazepam (Valium) 7.5 mg QHS PO ; Start 08/23/16 at 21:00; Stop 08/25/16 at 09: 09; Status DC EZETIMIBE (Zetia) 10 mg QHS PO Last administered on 08/25/16 20:29; Start at 21:00 Furosemide (Lasix) 80 mg DAILY PO Last administered on 08/26/16 08:48; Start 08/24/16 at 09:00 Acetaminophen/ Hydrocodone Bitart (Lortab 7.5/325) 1 tab PRN Q6HRS PRN PO PAIN Last administered on 08/25/16 20:29; Start 08/23/16 at 11:30 Albuterol/ Ipratropium (Duoneb) 3 ml RTQID NEB Last administered on 08/26/16 16:46; Start 08/23/16 at 12:00 Metformin HCl (Glucophage) 500 mg BIDWMEALS PO ; Start 08/23/16 at 17:00; Stop 08/23/16 at 17:00; Status DC Montelukast Sodium (Singulair) 10 mg QHS PO Last administered on 08/25/16 20: 28; Start 08/23/16 at 21:00 Pantoprazole Sodium (Protonix) 40 mg DAILYAC PO Last administered on 08/26/16 07:50; Start 08/24/16 at 07:30 Phenytoin Sodium (Dilantin) 400 mg QHS PO Last administered on 08/25/16 20:28 ; Start 08/23/16 at 21:00 Potassium Chloride (Klor-Con) 20 meq BID PO Last administered on 08/26/16 08: 48; Start 08/23/16 at 21:00 Pravastatin Sodium (Pravachol) 20 mg DAILY PO Last administered on 08/26/16 08 :49; Start 08/24/16 at 09:00 Primidone (Mysoline) 150 mg QID PO Last administered on 08/26/16 08:48; Start 08/23/16 at 13:00; Stop 08/26/16 at 09:31; Status DC Non-Formulary Medication 2 puff BID IH ; Start 08/23/16 at 21:00; Stop 08/23/16 at 21:00; Status DC Gabapentin (Neurontin) 600 mg TID PO Last administered on 08/26/16 13:18; Start 08/23/16 at 14:00 Mirtazapine (Remeron) 45 mg QHS PO Last administered on 08/25/16 20:28; Start 08/23/16 at 21:00; Stop 08/26/16 at 07:44; Status DC Non-Formulary Medication 18 mcg BID IH ; Start 08/23/16 at 21:00; Stop 08/23/16 at 21:00; Status DC Non-Formulary Medication 40 mg DAILY PO Last administered on 08/26/16 08:49; Start 08/24/16 at 09:00 Budesonide (Pulmicort) 0.5 mg RTBID NEB Last administered on 08/26/16 09:30; Start 08/23/16 at 20:00 Iohexol (Omnipaque 240 Mg/ml) 50 ml STK-MED ONCE .ROUTE ; Start 08/23/16 at 12: 07; Stop 08/23/16 at 12:08; Status DC Lactulose 20 gm QID PO Last administered on 08/25/16 09:00; Start 08/23/16 at 13:00; Stop 08/25/16 at 10:19; Status DC Iohexol (Omnipaque 240 Mg/ml) 50 ml 1X ONCE PO Last administered on 08/23/16 14:44; Start 08/23/16 at 14:45; Stop 08/23/16 at 14:46; Status DC Metformin HCl (Glucophage) 500 mg BIDWMEALS PO Last administered on 08/26/16 17:05; Start 08/25/16 at 17:00 Diazepam (Valium) 5 mg QHS PO Last administered on 08/25/16 20:28; Start 08/25 at 21:00 Lactulose 45 gm QID PO Last administered on 08/26/16 17:05; Start 08/25/16 at 13:00 Rifaximin (Xifaxan) 550 mg Q12HR PO Last administered on 08/26/16 08:48; Start 08/25/16 at 10:30 Lactulose 15 gm 1X ONCE PO Last administered on 08/25/16 10:59; Start at 11:00; Stop 08/25/16 at 11:01; Status DC Lactulose 200 gm 1X PO ; Start 08/25/16 at 14:45; Stop 08/26/16 at 07:40; Status DC Sodium Chloride 1,000 ml @ 75 mls/hr [id number] IV Last administered on 05:15; Start 08/25/16 at 17:00 Mirtazapine (Remeron) 7.5 mg QHS PO ; Start 08/26/16 at 21:00 Primidone (Mysoline) 100 mg QID PO Last administered on 08/26/16t 17:05; Start 08/26/16 at 13:00 Active Scripts Active Lactulose 10 Gm/15 Ml Solution 30 Ml PO QID Metformin Hcl 500 Mg Tablet 500 Mg PO BIDWMEALS 90 Days Duoneb 0.5-3(2.5) Mg/3 Ml (Albuterol/Ipratropium) 3 Ml Ampul.neb 3 Ml NEB RTQID 60 Days Albuterol Sulfate Neb Soln (Albuterol Sulfate) 2.5 Mg/3 Ml Vial.neb 2.5 Mg NEB PRN Q6HRS PRN 30 Days Reported Spiriva (Tiotropium [place]) 18 Mcg Cap.w.dev 18 Mcg IH BID Remeron (Mirtazapine) 45 Mg Tablet 45 Mg PO QHS Furosemide 80 Mg Tablet 80 Mg PO DAILY Trintellix (Vortioxetine Hydrobromide) 10 Mg Tablet 40 Mg PO DAILY Abilify (Aripiprazole) 5 Mg Tablet 1 Tab PO QHS last dose last night next dose tonight TIME: AM NEXT DOSE DUE: DATE: TOMORROW TIME: AM Hydrocodone-Apap 7.5-325 (Hydrocodone Bit/Acetaminophen) 1 Each Tablet 1 Tab PO PRN Q6HRS PRN LAST DOSE GIVEN: DATE: NOT GIVEN TODAY TIME: NEXT DOSE DUE: DATE: TODAY TIME: IF AND WHEN NEEDED Gralise (Gabapentin) 600 Mg Tab.er.24h 1 Tab PO TID LAST DOSE GIVEN: DATE: TODAY TIME: AFTERNOON NEXT DOSE DUE: DATE: TOMORROW TIME: AM Klor-Con M20 (Potassium Chloride) 20 Meq Tab.er.prt 0.5 Tab PO BID LAST DOSE GIVEN: DATE: TODAY TIME: AM NEXT DOSE DUE: DATE: TOMORROW TIME: AM Flovent 110MCG Hfa (Fluticasone Propionate) 12 Gm Aer.w.adap 2 Puff IH BID LAST DOSE GIVEN: DATE: TIME: NEXT DOSE DUE: DATE: RESTART TODAY TIME: WHEN YOU GET HOME Montelukast Sodium Tablet (Montelukast Sodium) 10 Mg Tablet 10 Mg PO QHS LAST DOSE GIVEN: DATE: TODAY TIME: AM NEXT DOSE DUE: DATE: TOMORROW TIME: AM Protonix (Pantoprazole Sodium) 40 Mg Tablet.dr 40 Mg PO DAILYAC LAST DOSE GIVEN: DATE: TODAY TIME: BEFORE BREAKFAST NEXT DOSE DUE: DATE: TOMORROW TIME: BEFORE BREAKFAST Dilantin (Phenytoin Sodium Extended) 100 Mg Capsule 400 Mg PO QHS LAST DOSE GIVEN: DATE: YESTER TIME: AT BEDTIME NEXT DOSE DUE: DATE: TODAY TIME: AT BEDTIME Aspirin 81 Mg Tab.chew 81 Mg PO DAILY last dose this morning next dose tomorrow LAST DOSE GIVEN: DATE: TODAY TIME: AM NEXT DOSE DUE: DATE: ORR TIME: AM Zetia (Ezetimibe) 10 Mg Tablet 10 Mg PO QHS last dose last night next dose tonight TIME: AM NEXT DOSE DUE: DATE: TOMORROW TIME: AM Pravastatin Sodium 20 Mg Tablet 20 Mg PO DAILY LAST DOSE GIVEN: DATE: TODAY TIME: AM NEXT DOSE DUE: DATE: TIME: AM Primidone 50 Mg Tablet 150 Mg PO QID LAST DOSE GIVEN: DATE: TIME: AT 2 PM NEXT DOSE DUE: DATE: TODAY TIME: EVENING Diazepam 5 Mg Tablet 7.5 Mg PO QHS LAST DOSE GIVEN: DATE: YES TIME: AT BEDTIME NEXT DOSE DUE: DATE: TODAY TIME: AT BEDTIME Diazepam 5 Mg Tablet 2.5 Mg PO TIDPC LAST DOSE GIVEN: DATE: TODAY TIME: AFTER LUNCH NEXT DOSE DUE: DATE: TODAY TIME: AFTER DINNER Diagnosis: Problems: (1) Mood disorder (2) Encephalopathy SMILEY BETH MD Aug 26, 2016 21:22
[2016-08-26] MEDS: PHENYTOIN SODIUM EXTENDED 100 MG CAPSULE PO SCH (21:34)
[2016-08-26] MEDS: MONTELUKAST 10 MG TABLET. PO SCH (21:35)
[2016-08-26] MEDS: ARIPiprazole 5 MG TABLET PO SCH (21:36)
[2016-08-26] MEDS: HYDROcodone/APAP 7.5/325MG 1 TAB TABLET PO PRN (21:36)
[2016-08-26] MEDS: EZETIMIBE 10 MG TABLET PO SCH (21:36)
--- NOTE | 2016-08-27 03:02 | PN ---
DATE: 08/26/2016 SUBJECTIVE: A 66-year-old female is in with hepatic encephalopathy, possible ANTUNEZ. The patient was having a great deal of difficulty yesterday. She was suicidal and was put on one-on-one this morning. Her ammonia levels are down to 26 or so, and she is feeling much better, although she is still having problems with her words. She is having for words, which is unlike her before. Her blood sugars are good. PHYSICAL EXAMINATION: VITAL SIGNS: Stable. Blood pressure , respiratory rate 20, pulse 80, and afebrile. GENERAL: The patient is alert and oriented patient, otherwise continued to be monitored on her other levels, otherwise her electrolytes look good. LUNGS: Clear. CARDIOVASCULAR: Stable. NEUROLOGIC: The patient alert, much better than yesterday, not suicidal, but still ____ in words. PLAN: We will keep her another night. Continue on fluids and monitor her lactulose and diarrhea to make sure her ammonia level stay down as she has had this improvement before and then had a relapse. IMPRESSION: Hepatic encephalopathy, suicidal ideation secondary to hepatic encephalopathy, obesity, type 2 diabetes, cognitive disorder, major depressive disorder, chronic respiratory failure, in chronic oxygen needs, continue with present drug regimen. SCOOTER HOPKINS MD DR: NGOZI/elisa JOB#: [id number] / [id number]
--- NOTE | 2016-08-27 03:28 | PN ---
DATE: 08/26/2016 PSYCHIATRIC PROGRESS NOTE SUBJECTIVE: The patient was seen on rounds the morning of 08/26/2016. Discussed with nursing staff, reviewed the chart, also met with the patient's , who was in the room with her in room 124, [address] and she has changed her room. The patient's ammonia level is normal today. She seems cognitively clear. Denies being suicidal, on one-on-one status has been discontinued. REVIEW OF SYSTEMS: No CV, , pulmonary, eye system symptoms on review, remains somewhat withdrawn. MENTAL STATUS EXAM: Oriented to herself and situation. Speech is coherent, abstraction fair, computation impaired. No suicidal or homicidal ideation. Mood is better. LABORATORY DATA: Reviewed. IMPRESSION: Major depressive disorder, recurrent versus delirium, general medical condition improving. PLAN: From a psychiatric standpoint, Remeron has been reduced to 7.5 mg p.o. at bedtime. Continue Trintellix. Valium was reduced. Once the patient is medically stabilized and is being discharged, she should follow up at the [facility] for outpatient psychiatric care. SMILEY BETH MD DR: CHRIS/elisa JOB#: [id number] / [id number]
--- NOTE | 2016-08-27 03:32 | PN ---
DATE: 08/24/2016 SUBJECTIVE: The patient's ammonia level went up and consequently she is having a rather difficult time with crying. She is completely different from when she was yesterday, where she was much better controlled and feeling 100% better. Today, she says she just wants to give up. She has a lot of tremor, tearfulness, no doubt related to this elevation. Talking to the nurses they pointed out that from what they could see she did not have a good bowel movement with the lactulose, so we are going to increase the dose of the lactulose and put her on Xifan as well for the situation; otherwise, we will need to continue to monitor her carefully here as she is having hyperammonia levels. PHYSICAL EXAMINATION: VITAL SIGNS: Blood pressure 120/70, respiratory 20, pulse 80, afebrile, 2 liters nasal cannula 95%. GENERAL: The patient is alert, although very tearful, anxious and desperate. She does have a resting tremor. LUNGS: Clear. CARDIOVASCULAR: Stable. ABDOMEN: Soft, nontender. I talked with her at least 2 or 3 times this morning about the situation and we will go ahead and increase her lactulose to 45 g 4 times a day and put her on Xifan to get that ammonia level down, recheck the ammonia level in the morning and make further evaluation at that time. IMPRESSION: Hepatic encephalopathy, hyperammonemia, type 2 diabetes, obesity, depression, familial tremor, possible history of psuedoseizures. We will consult with Dr. Stephens about some of the anti-seizure medications and tremor medications she is using. Pharmacy has researched and felt those are possible sources of increasing ammonia levels in an individual; also increase the lactulose and put her on the Xifan. SCOOTER HOPKINS MD DR: NGOZI/elisa JOB#: [id number] / [id number]
[2016-08-27] MEDS: IPRATRPIUM/ALBUTEROL 0.5/2.5MG 3 ML NEBU. NEB SCH (05:19)
[2016-08-27 06:19] VITALS: BP 96/58
[2016-08-27] MEDS: LACTULOSE 20 GM/30 ML SOLUTION. PO SCH (08:02)
[2016-08-27] MEDS: diazePAM 5 MG TABLET PO SCH (08:02)
[2016-08-27] MEDS: PRAVASTATIN 20 MG TABLET. PO SCH (08:02)
[2016-08-27] MEDS: PRIMIDONE 50 MG TABLET PO SCH (08:03)
[2016-08-27] MEDS: rifAXIMin 550 MG TABLET PO SCH (08:03)
[2016-08-27] MEDS: ASPIRIN 81 MG TAB.CHEW PO SCH (08:03)
[2016-08-27] MEDS: PANTOPRAZOLE 40 MG TABLET. PO SCH (08:03)
[2016-08-27] MEDS: GABAPENTIN 300 MG CAPSULE. PO SCH (08:03)
[2016-08-27] MEDS: VORTIOXETINE HYDROBROMIDE 40 MG PO SCH (08:03)
[2016-08-27] MEDS: POTASSIUM CHLORIDE 20 MEQ TABLET.ER. PO SCH (08:03)
[2016-08-27] MEDS: metFORMIN 500 MG TABLET PO SCH (08:03)
[2016-08-27] MEDS: FUROSEMIDE 80 MG TABLET PO SCH (08:03)
[2016-08-27] MEDS: IV NORMAL SALINE 1,000ML 1,000 ML IV SCH (08:04)
[2016-08-27] MEDS ORDERED: LACT20SO PO (09:52)
[2016-08-27] MEDS ORDERED: PRIM50TA24 PO (09:52)
[2016-08-27] MEDS ORDERED: MIRT7.5T8 PO (09:52)
--- NOTE | 2016-08-27 22:18 | PN ---
DATE: 08/27/2016 SUBJECTIVE: The patient denies any new medical or neurological complaints. She continues to have mild postural tremor of the hands and sometimes of the head. OBJECTIVE: GENERAL: Obese female very pleasant, not in acute distress. VITAL SIGNS: Blood pressure is 96/58, respiratory rate 18, pulse is 84. Afebrile. Oxygen saturation at 94% on 2 liters by nasal cannula. HEENT: Normocephalic, atraumatic, otherwise unremarkable. NECK: Supple. Negative for carotid bruit, lymphadenopathy, or thyromegaly. LUNGS: With diminished breath sounds bilaterally. No wheezing or rales. CARDIOVASCULAR: Regular rate and rhythm, normal S1, S2. ABDOMEN: Soft. Bowel sounds positive. EXTREMITIES: Negative for cyanosis, clubbing, or pitting edema. NEUROLOGICAL EXAM: Mental Status: The patient is alert and oriented x 3. Speech is fluent. There is no language dysfunction. Cranial nerves are intact. No focal motors are intact. No nystagmus. Motor Examination: No focal muscle bulk was seen. The tone is normal. The strength is 4/5 throughout. The patient had mild postural and kinetic tremors of the upper extremities and mild head tremor. Sensory examination revealed diminished pinprick and light touch senses in patchy distributions in both upper and lower extremities. Deep tendon reflexes were symmetric and hypoactive with absent Achilles responses. Gait: The patient uses a walker for ambulation. IMPRESSION: 1. Acute encephalopathy - Resolved. 2. Normalized ammonia level of 26. 3. Multiple medical and psychiatric problems as outlined above. RECOMMENDATIONS: 1. We will continue with primidone at 100 mg q.i.d. and Dilantin as scheduled and continue with current management and medication initiated by Dr. Porter. 2. Follow up on outpatient visit after 2 weeks from discharge. M Alvaro CASTILLO MD DR: TOLU/elisa JOB#: [id number] / [id number]
--- NOTE | 2016-10-03 20:20 | DS ---
DATE OF DISCHARGE: 08/27/2016 HOSPITAL COURSE: The patient is a 66-year-old female who apparently was on the swing bed unit when she became increasingly disoriented, markedly change in mental status. The patient's ammonia level was found to be over 140. She was brought on to the [facility] because of her metabolic encephalopathy or hepatic encephalopathy. The patient made good progress, placed on lactulose. Ammonia level came down. She was also seen by Dr. Barron, Psychiatry who made other timely suggestions. The patient made good progress. She has probable ANTUNEZ and continued to be monitored as an outpatient. She did have some suicidal ideation, probably secondary to the hepatic encephalopathy. Her labs, blood counts were basically unremarkable and as noted, her ammonia levels were well over 100, with lactulose came down into range. Blood sugars were also monitored. CT scan of abdomen and pelvis basically unremarkable. Ultrasound of the liver showed fatty infiltration of the liver, surgical abscess of the gallbladder. IMPRESSION: Hepatic encephalopathy, acute mental status change, ileus, nonalcoholic steatohepatitis. She was also seen by Dr. Barron and Dr. Stephens. The patient will be discharged home on low protein diet. See MRAD, decreased activity, and followup in 7-10 days or sooner as needed for treatment of . SCOOTER HOPKINS MD DR: NGOZI/elisa JOB#: [id number] / [id number]
== END 2016-08-27 10:44 | disposition home or self-care (01) | DRG 441 ==
LOC: 1 SOUTH 10:58
PROVIDERS: ADMIT Family Medicine; ATTEND Family Medicine
PROC: 5A09357 Assistance with Respiratory Ventilation, Less than 24 Consecutive Hours, Continuous Positive Airway Pressure (ICD-10-PCS; principal; 2016-08-23)
DX: K72.90 Hepatic failure, unspecified without coma (principal); J96.20 Acute and chronic respiratory failure, unspecified whether with hypoxia or hypercapnia; Z68.41 Body mass index [BMI] 40.0-44.9, adult; F33.9 Major depressive disorder, recurrent, unspecified; R45.851 Suicidal ideations; E78.00 Pure hypercholesterolemia, unspecified; E78.5 Hyperlipidemia, unspecified; F41.9 Anxiety disorder, unspecified; G47.33 Obstructive sleep apnea (adult) (pediatric); J44.9 Chronic obstructive pulmonary disease, unspecified; G40.909 Epilepsy, unspecified, not intractable, without status epilepticus; K21.9 Gastro-esophageal reflux disease without esophagitis; K58.9 Irritable bowel syndrome, unspecified; K76.0 Fatty (change of) liver, not elsewhere classified; F09 Unspecified mental disorder due to known physiological condition; M81.0 Age-related osteoporosis without current pathological fracture; M77.9 Enthesopathy, unspecified; H53.2 Diplopia; M54.5 Low back pain; J40 Bronchitis, not specified as acute or chronic; H26.9 Unspecified cataract; G62.9 Polyneuropathy, unspecified; G89.29 Other chronic pain; M79.7 Fibromyalgia; R29.6 Repeated falls; Z66 Do not resuscitate; E11.42 Type 2 diabetes mellitus with diabetic polyneuropathy; E66.01 Morbid (severe) obesity due to excess calories; M19.90 Unspecified osteoarthritis, unspecified site; Z90.710 Acquired absence of both cervix and uterus; Z90.49 Acquired absence of other specified parts of digestive tract; Z83.3 Family history of diabetes mellitus; Z86.711 Personal history of pulmonary embolism; Z85.820 Personal history of malignant melanoma of skin; Z99.81 Dependence on supplemental oxygen; Z79.899 Other long term (current) drug therapy; Z91.5 Personal history of self-harm; Z88.0 Allergy status to penicillin; Z88.1 Allergy status to other antibiotic agents; Z87.81 Personal history of (healed) traumatic fracture
CPT/HCPCS: 36415; 74022; 74176; 76700; 80053; 80076; 82140; 82947; 85027; 94640; J7620; J7626; Q9966; 97110; 97530; J7030

== ENCOUNTER 2016-09-18 20:07 | Emergency (ER) | payer MEDICARE, BC ==
[~2016-09-18] VITALS: Ht 315 cm; Wt 104.6 kg
[2016-09-18 20:07] VITALS: BP 131/77
[~2016-09-18 20:07] MED LIST changes: +LACT10SO PO; +LACT20SO PO; +MIRT7.5T8 PO; +PRIM50TA24 PO
[2016-09-18] MEDS: fentaNYL PF 100 MCG/2 ML VIAL IV PRN ×2 (21:10→23:00)
--- NOTE | 2016-09-18 22:06 | ED.ADGEN ---
Past History Past Medical History: Anxiety, Asthma, COPD, Depression, Fibromyalgia, GERD, Seizure, Other Past Surgical History: Appendectomy, Cancer Surgery, , Other Smoking: Non-smoker Alcohol Use: None Drug Use: None Adult General HPI HPI Patient is a 66-year-old female, history of COPD on 3 L nasal cannula baseline, hypertension, anxiety, obesity, who presents the emergency department with complaint of head and neck pain, extending into her upper back, after a fall. Patient states that she was attempting to catch a piece of paper that was falling to the ground, she bent backwards, lost her balance and fell, striking her back, head and neck against the ground. She denies pain in her lower back, legs, abdomen. She takes aspirin, no other blood thinners. Denies any loss of consciousness, states that she is having severe shooting pains from the base of her head down into her upper back. Denies any focal weakness, numbness or tingling, any nausea or vomiting, states that she "loses balance sometimes and follows". This occurred approximately 3 hours prior to arrival in the ED, patient presented because pain was persistent. She does take narcotic medications at home for chronic pain, states that she took her home medications without relief. C-collar placed upon arousing emergency department based on location of patient's complaints. Review of Systems Review of Systems Constitutional: Denies fever or chills [] Eyes: Denies change in visual acuity, redness, or eye pain [] HENT: Denies nasal congestion or sore throat [] Respiratory: Denies cough or shortness of breath [] Cardiovascular: No additional information not addressed in HPI [] GI: Denies abdominal pain, nausea, vomiting, bloody stools or diarrhea [] : Denies dysuria or hematuria [] Musculoskeletal: Upper back pain, no joint pain. Neck and posterior head pain. Integument: Denies rash or skin lesions [] Neurologic: Denies headache, focal weakness or sensory changes [] Endocrine: Denies polyuria or polydipsia [] Current Medications Current Medications Current Medications Medications (Trade) Dose Ordered Sig/Keegan Start Time Stop Time Status Last Admin Dose Admin Fentanyl Citrate (Fentanyl 2ml Vial) 25 mcg PRN Q15MIN PRN 09/18/16 21:00 09/19/16 20:59 09/18/16 21:10 25 MCG Allergies Allergies Allergies Coded Allergies Type Severity Reaction Last Updated Verified Penicillins Allergy Intermediate 12/20/14 Yes Sulfa (Sulfonamide Antibiotics) Allergy Intermediate 12/20/14 Yes enoxaparin sodium Allergy Intermediate Rash 12/20/14 Yes erythromycin base Allergy Intermediate 12/20/14 Yes Physical Exam Physical Exam Constitutional: Well developed, obese, no acute distress, non-toxic appearance. [] HENT: Normocephalic, atraumatic, bilateral external ears normal, oropharynx moist, no oral exudates, nose normal. [] Eyes: PERRLA, EOMI, conjunctiva normal, no discharge. [] Neck: C-collar in place, patient complaining of severe pain throughout the center of her neck, no step-offs or deformities appreciated. C-collar in place due to complaints of pain. Pain extends from the posterior region of the skull down through the occiput, into the neck, extending into the upper shoulders.] With tenderness palpation from C5-T1, no step-offs or deformities appreciated. Patient with tenderness that is equal in the paraspinal muscles in this region as well, does not extend beyond this point, no tenderness in the shoulders or lower back. Cardiovascular:Heart rate regular rhythm, no murmur , S1, S2, no rubs or gallops. [] Lungs & Thorax: Diminished breath sounds at bases bilaterally, no wheezing, rhonchi, rales. Patient with nasal cannula in place, no chest wall crepitus or tenderness. Abdomen: Bowel sounds normal, obese, no rebound, rigidity, no guarding, soft, no tenderness, no masses, no pulsatile masses. [] Skin: Warm, dry, no erythema, no rash. [] Back: No tenderness, no step-offs or deformities. No CVA tenderness. [] Extremities: No tenderness, no cyanosis, no clubbing, ROM intact, no edema. Negative Homans sign. [] Neurologic: Alert and oriented X 3, normal motor function, normal sensory function, no focal deficits noted. [] Psychologic: Affect normal, judgement normal, mood normal. [] Current Patient Data Vital Signs Vital Signs Date Time Temp Pulse Resp B/P (MAP) Pulse Ox O2 Delivery O2 Flow Rate FiO2 09/18/16 21:10 22 96 3.0 09/18/16 20:07 98.3 90 Room Air Lab Results Laboratory Tests Test 09/18/16 20:22 Glucose (Fingerstick) 130 mg/dL (70-99) H EKG EKG Not indicated[] Radiology/Procedures Radiology/Procedures [][address] [address] IMAGING REPORT Signed PATIENT: MADELAINE RM ACCOUNT: [id number] : 1950 LOCATION: ER AGE: 66 SEX: F EXAM STATUS: REG ER ORD. PHYSICIAN: TELLY BUSH DO REASON: fall/neck pain/MONREAL PROCEDURE: CT HEAD AND CERVICAL SPINE WO CT Head W/O Contrast: History: FALL, HEADACHE, NECK PAIN, PLEASE DICTATE ON SPACE BETWEEN C7-T1 IF POSSIBLE Comparison: none Axial images were obtained without contrast. There are small intraparenchymal calcifications scattered throughout the brain which are likely incidental. The philip and white matter appears normal and symmetrical for the patients age. There is no mass effect, extraaxial fluid collections or hydrocephalus. There is no gross bleed. There is no focal loss of philip-white matter distinction to suggest acute ischemia, i.e. stroke. Impression: No acute findings. End impression CT C-Spine without contrast: Clinical History: FALL, HEADACHE, NECK PAIN, PLEASE DICTATE ON SPACE BETWEEN C7-T1 IF POSSIBLE Technique: Axial helical images of the cervical spine were obtained to the mid T2 level without contrast, axial coronal and sagittal reconstruction was performed. Findings: There is no loss of vertebral body stature. There is no prevertebral soft tissue swelling. The vertebral bodies are well aligned. The C1-C2 relationship is normal. The visualized osseous structures appear normal. Impression: No acute findings. Clinical correlation suggested. PQRS Compliance Statement: One or more of the following individualized dose reduction techniques were utilized for this examination: 1. Automated exposure control 2. Adjustment of the mA and/or kV according to patient size 3. Use of iterative reconstruction technique Electronically signed by: Michelle Lyman III, MD (09/18/2016 10:28 PM) [facility] DICTATED AND SIGNED BY: MICHELLE LYMAN III, MD DATE: 09/18/16 1379 CC: SCOOTER HOPKINS MD; ELEAZAR,TELLY M DO ~ Impressions: [address] [address] IMAGING REPORT Signed PATIENT: MADELAINE RM ACCOUNT: [id number] : 1950 LOCATION: ER AGE: 66 SEX: F EXAM STATUS: REG ER ORD. PHYSICIAN: TELLY BUSH DO REASON: fall/pain PROCEDURE: THORACIC SPINE 3V Three-view thoracic spine series HISTORY: Fell and back pain. FINDINGS: There is a severe compression fracture of T7. There is a mild compression fracture of T12. No discitis or osteolytic process is seen. IMPRESSION: Severe compression fracture of T7. Mild compression fracture of T12. Electronically signed by: Laura Tobar MD (09/18/2016 11:04 PM) [facility] DICTATED AND SIGNED BY: LAURA TOBAR MD DATE: 09/18/16 CC: SCOOTER HOPKINS MD; TELLY BUSH DO ~ Final Impression Final Impression C-collar placed as stated complaint of neck pain, appears to be isolated between C5 and T1, with mild tenderness in the paraspinal muscles of the mid thoracic spine. On reevaluation, is receiving pain medication, patient has no tenderness below T2, and has no step-offs or deformities as stated. Imaging of the neck, head, and thoracic spine obtained. Patient with chronic fractures at T7 and T12, did discuss this with patient, she states are "from a long time ago ", and as stated has no tenderness in the area at this time. No evidence of acute thoracic fracture, no evidence of cervical abnormality. I did attempt to clear the patient's c-collar, however she is experiencing continued pain in the neck, and is unable to be cleared at this time due to persistent discomfort. Discussed continuing use of collar for support and comfort, due to concern for possible ligamentous injury, plan to follow-up with neurosurgery for additional evaluation and clearance. Patient was agreeable this plan, I did speak with Dr. Ndiaye neurosurgery, who agrees with plan to leave the patient's collar on at this time, states that her pain persist over the next 2 weeks, that AP and lateral film of the neck be obtained, that she follow-up in the neurosurgery office for additional evaluation. Patient does ambulate with a walker at baseline, ambulating without difficulty with walker in the emergency department. I discussed plan to keep the collar in place at this time, patient will be able to take the collar off for bathing and to ice the area, she has an appointment follow-up with her primary care provider, Dr. Spangler on Saturday, she can be reassessed at that time, and have the collar cleared that point if she is comfortable, otherwise plans to follow-up with Dr. Ndiaye in 2 weeks with an x-ray and additional evaluation as discussed. We also discussed concerning symptoms that prompt return to the emergency department, and home safety, patient does have her medications at home, which she will continue to take as directed until she follows up with her primary care provider. Patient discharged home with in stable condition with plan for follow-up, precautions, and return instructions as stated. Problems: Dragon Disclaimer Dragon Disclaimer This electronic medical record was generated, in whole or in part, using a voice recognition dictation system. Departure: Impression: Primary Impression: Fall Additional Impression: Neck pain Disposition: HOME, SELF-CARE Condition: IMPROVED TELLY BUSH DO Sep 18, 2016 22:06
--- NOTE | 2016-09-18 22:32 | RAD ---
CT Head W/O Contrast: History: FALL, HEADACHE, NECK PAIN, PLEASE DICTATE ON SPACE BETWEEN C7-T1 IF POSSIBLE Comparison: none Axial images were obtained without contrast. There are small intraparenchymal calcifications scattered throughout the brain which are likely incidental. The philip and white matter appears normal and symmetrical for the patients age. There is no mass effect, extraaxial fluid collections or hydrocephalus. There is no gross bleed. There is no focal loss of philip-white matter distinction to suggest acute ischemia, i.e. stroke. Impression: No acute findings. End impression CT C-Spine without contrast: Clinical History: FALL, HEADACHE, NECK PAIN, PLEASE DICTATE ON SPACE BETWEEN C7-T1 IF POSSIBLE Technique: Axial helical images of the cervical spine were obtained to the mid T2 level without contrast, axial coronal and sagittal reconstruction was performed. Findings: There is no loss of vertebral body stature. There is no prevertebral soft tissue swelling. The vertebral bodies are well aligned. The C1-C2 relationship is normal. The visualized osseous structures appear normal. Impression: No acute findings. Clinical correlation suggested. PQRS Compliance Statement: One or more of the following individualized dose reduction techniques were utilized for this examination: 1. Automated exposure control 2. Adjustment of the mA and/or kV according to patient size 3. Use of iterative reconstruction technique Electronically signed by: Phillip Haines III, MD (09/18/2016 10:28 PM) [facility]
--- NOTE | 2016-09-18 23:07 | RAD ---
Three-view thoracic spine series HISTORY: Fell and back pain. FINDINGS: There is a severe compression fracture of T7. There is a mild compression fracture of T12. No discitis or osteolytic process is seen. IMPRESSION: Severe compression fracture of T7. Mild compression fracture of T12. Electronically signed by: Baldomero Tobar MD (09/18/2016 11:04 PM) [facility]
== END 2016-09-18 23:45 | disposition home or self-care (01) ==
LOC: ER 20:07
DX: M54.2 Cervicalgia (principal); R51 Headache; K21.9 Gastro-esophageal reflux disease without esophagitis; M79.7 Fibromyalgia; J44.9 Chronic obstructive pulmonary disease, unspecified; F41.9 Anxiety disorder, unspecified; G89.29 Other chronic pain; I10 Essential (primary) hypertension; E66.9 Obesity, unspecified; Z79.82 Long term (current) use of aspirin; Z88.0 Allergy status to penicillin; Z88.2 Allergy status to sulfonamides; Z88.1 Allergy status to other antibiotic agents; Z88.8 Allergy status to other drugs, medicaments and biological substances; W18.09XA Striking against other object with subsequent fall, initial encounter; Y93.89 Activity, other specified; Y99.8 Other external cause status; Y92.89 Other specified places as the place of occurrence of the external cause
CPT/HCPCS: 70450; 72072; 72125; 82947; 96374; 96376; 99284; J3010

== ENCOUNTER → 2016-09-28 | Outpatient (CLI) | payer MEDICARE, BC ==
[2016-09-18 20:07] VITALS: BP 131/77
--- NOTE | 2016-09-28 14:54 | RAD ---
Cervical spine, 3 views, 09/28/2016: History: Fall, neck pain The bony structures are demineralized. There is mild disc space narrowing at multiple levels in the mid and lower cervical spine with scattered marginal spurs. There are extensive hypertrophic degenerative changes involving multiple facet joints bilaterally. There is a slight cervical scoliosis. No acute fracture or dislocation is identified. The prevertebral soft tissues are unremarkable. IMPRESSION: 1. Moderate multilevel degenerative change. 2. No acute bony abnormality is detected.
== END | disposition home or self-care (01) ==
LOC: DXRADRC 14:21
PROVIDERS: ATTEND Neurological Surgery
DX: M47.892 Other spondylosis, cervical region (principal)
CPT/HCPCS: 72040

== ENCOUNTER → 2017-01-03 | Outpatient (CLI) | payer MEDICARE, BC ==
[~2017-01-03] MED LIST changes: +0.9 % SODIUM CHLORIDE 10 ML VIAL ONE; +DEXAMETHASONE SOD PHOS 4 MG/ML VIAL ONE; +IOHEXOL 300 MG/ML 50 ML VIAL. ONE; +LIDOCAINE 1% PF 30 ML VIAL. ONE
== END | disposition home or self-care (01) ==
LOC: SURG 09:20
PROVIDERS: ATTEND Anesthesiology Pain Medicine
DX: M54.16 Radiculopathy, lumbar region (principal); I10 Essential (primary) hypertension; M19.91 Primary osteoarthritis, unspecified site; F32.9 Major depressive disorder, single episode, unspecified; F20.9 Schizophrenia, unspecified; Z88.0 Allergy status to penicillin; Z88.1 Allergy status to other antibiotic agents; Z72.89 Other problems related to lifestyle; Z88.2 Allergy status to sulfonamides
CPT/HCPCS: 62323; 82947; J1100; J2001; Q9967

== ENCOUNTER 2017-02-14 10:48 | Inpatient (IN) | payer MEDICARE, BC ==
[~2017-02-14] VITALS: Ht 162.6 cm; Wt 100.7 kg
[~2017-02-14 10:48] MED LIST changes: -0.9 % SODIUM CHLORIDE 10 ML VIAL ONE; -DEXAMETHASONE SOD PHOS 4 MG/ML VIAL ONE; -IOHEXOL 300 MG/ML 50 ML VIAL. ONE; -LIDOCAINE 1% PF 30 ML VIAL. ONE
[2017-02-14 11:11] VITALS: BP 144/84
[2017-02-14] MEDS ORDERED: ALBU18HF IH (12:02)
[2017-02-14] MEDS ORDERED: FLUT16SP21 NS (12:02)
[2017-02-14] MEDS ORDERED: AZEL205. NS (12:02)
[2017-02-14] MEDS ORDERED: FLUT1AER IH (12:02)
[2017-02-14] MEDS ORDERED: UMEC62.5 IH (12:02)
[2017-02-14] MEDS ORDERED: LEVO80CA PO (12:02)
[2017-02-14] MEDS ORDERED: MOXI400T PO (12:02)
[2017-02-14 12:16] LABS: BASO # 0.1 x10^3/uL (0.0-0.2); BASO % 1 % (0-3); EOS # 0.3 x10^3/uL (0.0-0.7); EOS % 5 % (0-3); HEMOGLOBIN 13.5 g/dL (12.0-15.5); LYMPH # 1.7 x10^3/uL (1.0-4.8); LYMPH % 28 % (24-48); MEAN CORPUSCULAR HEMOGLOBIN 31 pg (25-35); MEAN CORPUSCULAR HGB CONC 35 g/dL (31-37); MEAN CORPUSCULAR VOLUME 91 fL (79-100); MONO # 0.6 x10^3/uL (0.0-1.1); MONO % 11 % (0-9); NEUT # 3.5 x10^3uL (1.8-7.7); NEUT % 56 % (31-73); PLATELET COUNT 188 x10^3/uL (140-400); RED BLOOD COUNT 4.31 x10^6/uL (3.50-5.40); RED CELL DISTRIBUTION WIDTH 15.2 % (11.5-14.5); WHITE BLOOD COUNT 6.2 x10^3/uL (4.0-11.0)
[2017-02-14 12:33] LABS: ALBUMIN 3.6 g/dL (3.4-5.0); ALBUMIN/GLOBULIN RATIO 0.7 (1.0-1.7); CALCIUM 9.3 mg/dL (8.5-10.1); CREATININE 0.9 mg/dL (0.6-1.0); GFR 62.6; POTASSIUM 3.6 mmol/L (3.5-5.1); TOTAL BILIRUBIN 0.4 mg/dL (0.2-1.0); TOTAL PROTEIN 8.6 g/dL (6.4-8.2)
[2017-02-14] MEDS ORDERED: ALBUTEROL SULFATE 8GM INHALER. IH PRN (12:45)
[2017-02-14] MEDS ORDERED: ALBUTEROL SULFATE 2.5 MG/3 ML NEBU. NEB PRN (12:45)
[2017-02-14] MEDS ORDERED: FLUTICASONE 50MCG/NASAL SPRAY 16GM BOTTLE. NS PRN (12:45)
[2017-02-14 12:58] LABS: INFLUENZA A PATIENT NEGATIVE (NEGATIVE); INFLUENZA B PATIENT NEGATIVE (NEGATIVE)
[2017-02-14] MEDS: IPRATRPIUM/ALBUTEROL 0.5/2.5MG 3 ML NEBU. NEB SCH ×4 (13:19→19:51)
[2017-02-14 13:33] LABS: BGAS PH 7.42 (7.35-7.45)
[2017-02-14] MEDS: HYDROcodone/APAP 7.5/325MG 1 TAB TABLET PO PRN ×2 (13:53→20:04)
[2017-02-14] MEDS: PRIMIDONE 50 MG TABLET PO SCH ×3 (13:53→20:05)
[2017-02-14] MEDS: methylPREDNISolone SOD SUCC PF 40 MG/ML VIAL. IV SCH ×2 (13:54→21:31)
[2017-02-14 14:25] VITALS: BP 131/68
--- NOTE | 2017-02-14 15:37 | RAD ---
Single view of the Chest 02/14/2017 1:29 PM Indication: SOB Comparison: Chest radiograph August 25, 2016 Findings: Stable linear opacity in left lung base likely reflecting scarring. No pneumothorax, effusion, or new infiltrate is seen. Heart size is within normal limits. What appears to be a coronary stent or coronary calcification is noted along the left heart border. No acute osseous changes are seen. Impression: No evidence of acute cardiopulmonary process or acute change from prior study.
[2017-02-14] MEDS: metFORMIN 500 MG TABLET PO SCH (17:36)
[2017-02-14] MEDS: GABAPENTIN 300 MG CAPSULE. PO SCH ×2 (17:36→20:05)
[2017-02-14] MEDS: diazePAM 5 MG TABLET PO SCH ×2 (17:37→20:06)
[2017-02-14 19:19] VITALS: BP 122/70
[2017-02-14 19:39] LABS: BILIRUBIN,URINE NEG (NEG); CLARITY,URINE CLEAR; COLOR,URINE YELLOW; GLUCOSE,URINE NEG (NEG); NITRITE,URINE NEG (NEG); UROBILINOGEN,URINE 0.2 mg/dL (0.2 mg/dL)
[2017-02-14 19:40] LABS: BACTERIA,URINE FEW /HPF (0-FEW); RBC,URINE OCC /HPF (0-2); SQUAMOUS EPITHELIAL CELL,UR MOD /LPF; WBC,URINE OCC /HPF (0-4)
[2017-02-14] MEDS: BUDESONIDE 0.5 MG/2 ML NEBU NEB SCH (19:51)
[2017-02-14] MEDS: AZELASTINE NASAL SPRAY 30ML BOTTLE. NS SCH (20:03)
[2017-02-14] MEDS: ARIPiprazole 5 MG TABLET PO SCH (20:04)
[2017-02-14] MEDS: MONTELUKAST 10 MG TABLET. PO SCH (20:04)
[2017-02-14] MEDS: MIRTAZAPINE 30 MG TABLET PO SCH (20:04)
[2017-02-14] MEDS: EZETIMIBE 10 MG TABLET PO SCH (20:05)
[2017-02-14] MEDS: PHENYTOIN SODIUM EXTENDED 100 MG CAPSULE PO SCH (20:05)
[2017-02-14] MEDS: POTASSIUM CHLORIDE 20 MEQ TABLET.ER. PO SCH (20:06)
[2017-02-14 22:29] VITALS: BP 113/64
[2017-02-14] MEDS: guaiFENesin DM 200MG/20MG 10 ML SYRUP PO PRN (23:12)
[2017-02-15 05:21] VITALS: BP 127/80
[2017-02-15] MEDS: methylPREDNISolone SOD SUCC PF 40 MG/ML VIAL. IV SCH ×3 (05:35→20:53)
[2017-02-15] MEDS: IPRATRPIUM/ALBUTEROL 0.5/2.5MG 3 ML NEBU. NEB SCH ×4 (05:57→20:32)
[2017-02-15 06:48] LABS: BASO % 0 % (0-3); EOS # 0.1 x10^3/uL (0.0-0.7); EOS % 2 % (0-3); HEMATOCRIT 35.5 % (36.0-47.0); HEMOGLOBIN 12.2 g/dL (12.0-15.5); LYMPH # 1.9 x10^3/uL (1.0-4.8); LYMPH % 33 % (24-48); MEAN CORPUSCULAR HEMOGLOBIN 31 pg (25-35); MEAN CORPUSCULAR HGB CONC 34 g/dL (31-37); MEAN CORPUSCULAR VOLUME 91 fL (79-100); MONO # 0.5 x10^3/uL (0.0-1.1); MONO % 9 % (0-9); NEUT # 3.4 x10^3uL (1.8-7.7); NEUT % 56 % (31-73); PLATELET COUNT 163 x10^3/uL (140-400); RED BLOOD COUNT 3.89 x10^6/uL (3.50-5.40); RED CELL DISTRIBUTION WIDTH 15.1 % (11.5-14.5)
[2017-02-15 06:55] LABS: CALCIUM 8.9 mg/dL (8.5-10.1); CREATININE 0.8 mg/dL (0.6-1.0); GFR 71.8; POTASSIUM 3.3 mmol/L (3.5-5.1)
[2017-02-15] MEDS: HYDROcodone/APAP 7.5/325MG 1 TAB TABLET PO PRN (07:18)
[2017-02-15] MEDS: PANTOPRAZOLE 40 MG TABLET. PO SCH (08:17)
[2017-02-15] MEDS: GABAPENTIN 300 MG CAPSULE. PO SCH ×4 (08:17→20:54)
[2017-02-15] MEDS: POTASSIUM CHLORIDE 20 MEQ TABLET.ER. PO SCH ×2 (08:17→20:54)
[2017-02-15] MEDS: FUROSEMIDE 80 MG TABLET PO SCH (08:17)
[2017-02-15] MEDS: ASPIRIN 81 MG TAB.CHEW PO SCH (08:18)
[2017-02-15] MEDS: metFORMIN 500 MG TABLET PO SCH ×2 (08:18→17:05)
[2017-02-15] MEDS: PRIMIDONE 50 MG TABLET PO SCH ×4 (08:18→20:57)
[2017-02-15] MEDS: AZELASTINE NASAL SPRAY 30ML BOTTLE. NS SCH ×2 (08:19→20:53)
[2017-02-15] MEDS: diazePAM 5 MG TABLET PO SCH ×4 (08:19→20:53)
[2017-02-15] MEDS ORDERED: MOXIFLOXACIN HCL PO SCH (09:00)
[2017-02-15] MEDS ORDERED: NON FORMULARY ITEM (Umeclidinium Bromide (Incruse Ellipta) 62.5 MCG) IH SCH (09:00)
[2017-02-15] MEDS ORDERED: LEVOMILNACIPRAN HYDROCHLORIDE 80 MG PO SCH (09:00)
[2017-02-15] MEDS ORDERED: NON FORMULARY ITEM (Fluticasone/Vilanterol (Breo Ellipta 100-25 Mcg Inh) 1 PUFF) IH SCH (09:00)
[2017-02-15] MEDS ORDERED: fentaNYL 25MCG/HR 1 PATCH PATCH TD SCH (09:00)
[2017-02-15] MEDS: POTASSIUM CHLORIDE 8 MEQ TABLET.ER. PO SCH (09:40)
--- NOTE | 2017-02-15 10:16 | RAD ---
3 views of the paranasal sinuses 02/15/2017 Indication: Sinusitis. Comparison study: None. Discussion: 3 views of the paranasal sinuses were obtained. No air-fluid levels are visualized within the paranasal sinuses. No significant mucosal thickening is seen. No evidence of acute fracture is identified. No hypertrophic bony changes are appreciated. Impression: No radiographic evidence of sinusitis is identified
[2017-02-15] MEDS: BUDESONIDE 0.5 MG/2 ML NEBU NEB SCH ×2 (10:37→20:32)
[2017-02-15 11:01] VITALS: BP 134/83
[2017-02-15] MEDS: FETZIMA 80 MG PO SCH (12:17)
[2017-02-15 15:00] VITALS: BP 112/69
[2017-02-15 19:44] VITALS: BP 101/56
[2017-02-15] MEDS: guaiFENesin DM 200MG/20MG 10 ML SYRUP PO PRN (20:53)
[2017-02-15] MEDS: MIRTAZAPINE 30 MG TABLET PO SCH (20:53)
[2017-02-15] MEDS: EZETIMIBE 10 MG TABLET PO SCH (20:54)
[2017-02-15] MEDS: ARIPiprazole 5 MG TABLET PO SCH (20:54)
[2017-02-15] MEDS: PHENYTOIN SODIUM EXTENDED 100 MG CAPSULE PO SCH (20:54)
[2017-02-15] MEDS: MONTELUKAST 10 MG TABLET. PO SCH (20:54)
--- NOTE | 2017-02-15 23:32 | PN ---
DATE: SUBJECTIVE: The patient is a 66-year-old female who came in with acute exacerbation of COPD with hypoxia. The patient was in her 80 percentile range when she was in the office. The patient received aggressive pulmonary toilet as well as IV Solu-Medrol, feeling much better overall and although she is still having some difficulty breathing, a lot of head congestion, we will get sinus films. PHYSICAL EXAMINATION: VITAL SIGNS: Blood pressure 130/80, respiratory rate 24, pulse of 100, temperature 97.3. HEENT: The patient's head was atraumatic, normocephalic. Eyes: PERRLA. Stuffiness in the sinuses and pain in the facial area. LUNGS: Diminished, but clear throughout, poor movement of air, moving a little bit better air than she was yesterday. CARDIOVASCULAR: Regular sinus rhythm. ABDOMEN: Soft, diffuse tenderness, no rebound or guarding. EXTREMITIES: No clubbing, cyanosis or edema. LABORATORY DATA: Lactic acid was elevated yesterday at 2.6. ASSESSMENT AND PLAN: The patient has chronic pain of 8/10 to 9/10. Start her on a fentanyl patch. Acute exacerbation of chronic obstructive pulmonary disease with hypoxia. SCOOTER HOPKINS MD DR: NGOZI/elisa JOB#: [id number] / [id number]
[2017-02-16 05:40] VITALS: BP 114/69
[2017-02-16] MEDS: IPRATRPIUM/ALBUTEROL 0.5/2.5MG 3 ML NEBU. NEB SCH ×4 (05:43→20:23)
[2017-02-16] MEDS: methylPREDNISolone SOD SUCC PF 40 MG/ML VIAL. IV SCH ×2 (06:32→20:41)
[2017-02-16] MEDS: FUROSEMIDE 80 MG TABLET PO SCH (07:50)
[2017-02-16] MEDS: GABAPENTIN 300 MG CAPSULE. PO SCH ×4 (07:50→20:44)
[2017-02-16] MEDS: ASPIRIN 81 MG TAB.CHEW PO SCH (07:50)
[2017-02-16] MEDS: POTASSIUM CHLORIDE 20 MEQ TABLET.ER. PO SCH ×2 (07:50→20:44)
[2017-02-16] MEDS: metFORMIN 500 MG TABLET PO SCH ×2 (07:50→17:05)
[2017-02-16] MEDS: PANTOPRAZOLE 40 MG TABLET. PO SCH (07:50)
[2017-02-16] MEDS: AZELASTINE NASAL SPRAY 30ML BOTTLE. NS SCH ×2 (07:51→20:43)
[2017-02-16] MEDS: PRIMIDONE 50 MG TABLET PO SCH ×4 (07:51→20:43)
[2017-02-16] MEDS: diazePAM 5 MG TABLET PO SCH ×4 (07:51→20:44)
[2017-02-16] MEDS: POTASSIUM CHLORIDE 8 MEQ TABLET.ER. PO SCH (07:51)
[2017-02-16] MEDS: FETZIMA 80 MG PO SCH (07:52)
[2017-02-16 10:37] LABS: CALCIUM 8.8 mg/dL (8.5-10.1); GFR 55.5; POTASSIUM 3.5 mmol/L (3.5-5.1)
[2017-02-16] MEDS: BUDESONIDE 0.5 MG/2 ML NEBU NEB SCH ×2 (11:17→20:23)
[2017-02-16] MEDS: HEPARIN PF for SUB-Q USE 5,000 UNIT/0.5 ML VIAL. SQ SCH ×2 (14:18→20:40)
[2017-02-16 15:29] VITALS: BP 119/64
[2017-02-16] MEDS: HYDROcodone/APAP 7.5/325MG 1 TAB TABLET PO PRN (17:08)
--- NOTE | 2017-02-16 19:41 | PN ---
DATE: SUBJECTIVE: A 66-year-old female in with acute exacerbation of COPD, doing a little better this morning. Sinus films were negative. She did have an elevated lactic acid. So she is doing somewhat better overall. She also had hypoxia this morning. OBJECTIVE: VITAL SIGNS: Her blood pressure is 110/70, respiratory 18, pulse 99-100 and she is afebrile. She is on 3 liters at 97%. GENERAL: The patient is alert and oriented. LUNGS: Diminished throughout, but clear. CARDIOVASCULAR: Regular sinus rhythm. The patient is moving air better than she has, but still needs ways to go. The patient's throat cultures have been unremarkable. Blood cultures negative. IMPRESSION: Acute exacerbation of chronic obstructive pulmonary disease, sepsis, chronic pain, morbid obesity, essential tremors, history of seizure activity, has [place] filter in, chronic obstructive pulmonary disease, history of melanoma 1995 and 2014. SCOOTER HOPKINS MD DR: NGOZI/elisa JOB#: [id number] / [id number]
[2017-02-16 20:02] VITALS: BP 99/62
[2017-02-16] MEDS: PHENYTOIN SODIUM EXTENDED 100 MG CAPSULE PO SCH (20:43)
[2017-02-16] MEDS: ARIPiprazole 5 MG TABLET PO SCH (20:43)
[2017-02-16] MEDS: guaiFENesin DM 200MG/20MG 10 ML SYRUP PO PRN (20:43)
[2017-02-16] MEDS: MIRTAZAPINE 30 MG TABLET PO SCH (20:43)
[2017-02-16] MEDS: LACTOBACILLUS RHAMNOSUS GG 1 CAPSULE. PO SCH (20:44)
[2017-02-16] MEDS: EZETIMIBE 10 MG TABLET PO SCH (20:44)
[2017-02-16] MEDS: MONTELUKAST 10 MG TABLET. PO SCH (20:44)
[2017-02-17] MEDS: HEPARIN PF for SUB-Q USE 5,000 UNIT/0.5 ML VIAL. SQ SCH ×2 (05:04→14:04)
[2017-02-17 05:42] VITALS: BP 103/63
[2017-02-17] MEDS: IPRATRPIUM/ALBUTEROL 0.5/2.5MG 3 ML NEBU. NEB SCH ×2 (05:53→11:20)
[2017-02-17] MEDS: LACTOBACILLUS RHAMNOSUS GG 1 CAPSULE. PO SCH (07:50)
[2017-02-17] MEDS: GABAPENTIN 300 MG CAPSULE. PO SCH ×2 (07:50→12:35)
[2017-02-17] MEDS: diazePAM 5 MG TABLET PO SCH ×2 (07:51→12:35)
[2017-02-17] MEDS: POTASSIUM CHLORIDE 8 MEQ TABLET.ER. PO SCH (07:51)
[2017-02-17] MEDS: ASPIRIN 81 MG TAB.CHEW PO SCH (07:51)
[2017-02-17] MEDS: POTASSIUM CHLORIDE 20 MEQ TABLET.ER. PO SCH (07:51)
[2017-02-17] MEDS: PRIMIDONE 50 MG TABLET PO SCH ×2 (07:51→12:35)
[2017-02-17] MEDS: PANTOPRAZOLE 40 MG TABLET. PO SCH (07:52)
[2017-02-17] MEDS: metFORMIN 500 MG TABLET PO SCH (07:52)
[2017-02-17] MEDS: FUROSEMIDE 80 MG TABLET PO SCH (07:52)
[2017-02-17] MEDS: methylPREDNISolone SOD SUCC PF 40 MG/ML VIAL. IV SCH (07:52)
[2017-02-17] MEDS: AZELASTINE NASAL SPRAY 30ML BOTTLE. NS SCH (07:53)
[2017-02-17] MEDS: FETZIMA 80 MG PO SCH (07:53)
[2017-02-17] MEDS: BUDESONIDE 0.5 MG/2 ML NEBU NEB SCH (11:21)
[2017-02-17] MEDS ORDERED: LACT1CAP21 PO (14:00)
[2017-02-17] MEDS ORDERED: GUAI5SYR PO (14:00)
[2017-02-17] MEDS ORDERED: CEFT1VIA6 IJ (14:00)
[2017-02-17] MEDS ORDERED: FENT1PAT15 TP (14:00)
[2017-02-17] MEDS ORDERED: BUDE0.5A3 NEB (14:00)
== END 2017-02-17 14:08 | disposition swing bed (61) | DRG 871 ==
LOC: 1 SOUTH 10:52
PROVIDERS: ADMIT Family Medicine; ATTEND Family Medicine
PROC: 5A09357 Assistance with Respiratory Ventilation, Less than 24 Consecutive Hours, Continuous Positive Airway Pressure (ICD-10-PCS; 2017-02-15)
PROC: 5A09357 Assistance with Respiratory Ventilation, Less than 24 Consecutive Hours, Continuous Positive Airway Pressure (ICD-10-PCS; principal; 2017-02-16)
DX: A41.9 Sepsis, unspecified organism (principal); J96.01 Acute respiratory failure with hypoxia; J44.0 Chronic obstructive pulmonary disease with (acute) lower respiratory infection; J44.1 Chronic obstructive pulmonary disease with (acute) exacerbation; E66.01 Morbid (severe) obesity due to excess calories; G25.0 Essential tremor; G89.29 Other chronic pain; E78.5 Hyperlipidemia, unspecified; M81.0 Age-related osteoporosis without current pathological fracture; K21.9 Gastro-esophageal reflux disease without esophagitis; J20.9 Acute bronchitis, unspecified; D50.8 Other iron deficiency anemias; F32.9 Major depressive disorder, single episode, unspecified; Z96.651 Presence of right artificial knee joint; F41.9 Anxiety disorder, unspecified; Z98.42 Cataract extraction status, left eye; Z83.3 Family history of diabetes mellitus; Z82.49 Family history of ischemic heart disease and other diseases of the circulatory system; Z68.38 Body mass index [BMI] 38.0-38.9, adult; Z85.820 Personal history of malignant melanoma of skin; Z80.3 Family history of malignant neoplasm of breast; Z86.711 Personal history of pulmonary embolism; Z90.710 Acquired absence of both cervix and uterus; Z88.1 Allergy status to other antibiotic agents; Z88.0 Allergy status to penicillin; Z88.8 Allergy status to other drugs, medicaments and biological substances
CPT/HCPCS: 36415; 36600; 70220; 71010; 80048; 80053; 81001; 82803; 82947; 83605; 85025; 87040; 87070; 87205; 87804; 87880; 94640; J0696; J1956; J2920; J7620; J7626; 97110; 97116

== ENCOUNTER 2017-02-17 09:00 | Inpatient (IN) | payer MEDICARE, BC ==
[~2017-02-17] VITALS: Ht 167.6 cm; Wt 10.0 kg
[~2017-02-17 09:00] MED LIST changes: +ALBU18HF IH; +AZEL205. NS; +FLUT16SP21 NS; +FLUT1AER IH; +LEVO80CA PO; +MOXI400T PO; +UMEC62.5 IH
[2017-02-17] MEDS ORDERED: FENT1PAT15 TP (14:00)
[2017-02-17] MEDS ORDERED: CEFT1VIA6 IJ (14:00)
[2017-02-17] MEDS ORDERED: LACT1CAP21 PO (14:00)
[2017-02-17] MEDS ORDERED: BUDE0.5A3 NEB (14:00)
[2017-02-17] MEDS ORDERED: GUAI5SYR PO (14:00)
[2017-02-17] MEDS ORDERED: ALBUTEROL SULFATE 8GM INHALER. IH PRN (15:00)
[2017-02-17] MEDS ORDERED: FLUTICASONE 50MCG/NASAL SPRAY 16GM BOTTLE. NS PRN (15:00)
[2017-02-17] MEDS ORDERED: ALBUTEROL SULFATE 2.5 MG/3 ML NEBU. NEB PRN (15:00)
[2017-02-17 15:28] VITALS: BP 117/74
--- NOTE | 2017-02-17 15:32 | NUR ---
Swing Bed Admission: Pt admitted 02/17/17 for PT/OT evaluate and treat. Patient Handbook for Long-Term given to patient. Nursing Problem: Pt admitted to swing for PT/OT evaluate and treat. Still treating unkown infection with IV antibiotics and treating with IV solumedrol. Cognitive/Behavioral: Pt is alert and oriented x4. Pt is calm and cooperative with cares. Pain: Pt denies pain at this time. Does have hydrocodone prn. Respiratory Status: Pt is on RA, mild cough. Cough is productive. Skin: Pts skin is intact. [place] warm and dry. Bowel/Bladder Continence: Pt is continent of bowel and bladder. ADL Functional Status: Pt is ambulatory with walker. Fall(s) prior to admission? No Admitted from [facility] room 107.
[2017-02-17] MEDS ORDERED: GABAPENTIN PO SCH (17:00)
[2017-02-17] MEDS: GABAPENTIN 300 MG CAPSULE. PO SCH ×2 (17:07→21:00)
[2017-02-17] MEDS: metFORMIN 500 MG TABLET PO SCH (17:07)
[2017-02-17] MEDS: diazePAM 5 MG TABLET PO SCH ×2 (17:08→21:02)
[2017-02-17] MEDS: PRIMIDONE 50 MG TABLET PO SCH ×2 (17:11→21:03)
[2017-02-17 19:51] VITALS: BP 97/61
--- NOTE | 2017-02-17 20:00 | NUR ---
Swing Bed Admission: Pt admitted 02/17/17 for PT/OT evaluate and treat. Patient Handbook for Half-Way given to patient. Nursing Problem: Pt admitted to swing for PT/OT evaluate and treat. Still treating unkown infection with IV antibiotics and treating with IV solumedrol. Cognitive/Behavioral: Pt is alert and oriented x4. Pt is calm and cooperative with cares. Pain: Pt denies pain at this time. Does have hydrocodone prn. Respiratory Status: Pt is on O2 3L NC, mild cough. Cough is productive. Skin: Pts skin is intact. [place] warm and dry. Bowel/Bladder Continence: Pt is continent of bowel and bladder. ADL Functional Status: Pt is ambulatory with walker. Fall(s) prior to admission? No Admitted from [facility] room 107.
[2017-02-17] MEDS: BUDESONIDE 0.5 MG/2 ML NEBU NEB SCH (20:30)
[2017-02-17] MEDS: IPRATRPIUM/ALBUTEROL 0.5/2.5MG 3 ML NEBU. NEB SCH (20:30)
[2017-02-17] MEDS: methylPREDNISolone SOD SUCC PF 40 MG/ML VIAL. IV SCH (20:59)
[2017-02-17] MEDS: AZELASTINE NASAL SPRAY 30ML BOTTLE. NS SCH (20:59)
[2017-02-17] MEDS: POTASSIUM CHLORIDE 20 MEQ TABLET.ER. PO SCH (20:59)
[2017-02-17] MEDS: MONTELUKAST 10 MG TABLET. PO SCH (20:59)
[2017-02-17] MEDS ORDERED: LACTOBACILLUS RHAMNOSUS GG PO SCH (21:00)
[2017-02-17] MEDS ORDERED: AZELASTINE HCL NS SCH (21:00)
[2017-02-17] MEDS ORDERED: MIRTAZAPINE PO SCH (21:00)
[2017-02-17] MEDS: LACTOBACILLUS RHAMNOSUS GG 1 CAPSULE. PO SCH (21:00)
[2017-02-17] MEDS: ARIPiprazole 5 MG TABLET PO SCH (21:01)
[2017-02-17] MEDS: PHENYTOIN SODIUM EXTENDED 100 MG CAPSULE PO SCH (21:01)
[2017-02-17] MEDS: EZETIMIBE 10 MG TABLET PO SCH (21:01)
[2017-02-17] MEDS: HYDROcodone/APAP 7.5/325MG 1 TAB TABLET PO PRN (21:02)
[2017-02-17] MEDS: MIRTAZAPINE 30 MG TABLET PO SCH (21:02)
[2017-02-17] MEDS: HEPARIN PF for SUB-Q USE 5,000 UNIT/0.5 ML VIAL. SQ SCH (21:04)
--- NOTE | 2017-02-18 03:45 | DS ---
DATE OF DISCHARGE: 02/17/2017 HOSPITAL COURSE: The patient is discharged today, 02/17/2017 and will be transferred to skilled unit. The patient is a 66-year-old female, who came in with acute exacerbation of COPD. The patient has been having problems with her breathing, came in with respiratory distress. The patient's oxygen saturation dropped down into the 80s. She is on continuous oxygen. The patient was given IV Solu-Medrol, aggressive pulmonary toilet. The patient made excellent progress during the rest of her hospitalization, and she was discharged to SNF unit, skilled unit. See MRAD. Decreased activity and continue with PT, OT evaluation on skilled. IMPRESSION: Acute exacerbation of chronic obstructive pulmonary disease, acute respiratory distress, morbid obesity, type 2 diabetes. Be on diabetic diet. SCOOTER HOPKINS MD DR: NGOZI/elisa JOB#: [id number] / [id number]
[2017-02-18] MEDS: IPRATRPIUM/ALBUTEROL 0.5/2.5MG 3 ML NEBU. NEB SCH ×4 (05:25→21:33)
[2017-02-18 05:32] VITALS: BP 128/71
[2017-02-18] MEDS: HEPARIN PF for SUB-Q USE 5,000 UNIT/0.5 ML VIAL. SQ SCH ×3 (05:34→22:15)
[2017-02-18] MEDS: HYDROcodone/APAP 7.5/325MG 1 TAB TABLET PO PRN (05:37)
[2017-02-18] MEDS: PANTOPRAZOLE 40 MG TABLET. PO SCH (07:55)
[2017-02-18] MEDS: metFORMIN 500 MG TABLET PO SCH ×2 (07:56→16:53)
[2017-02-18] MEDS: LACTOBACILLUS RHAMNOSUS GG 1 CAPSULE. PO SCH ×2 (07:56→21:53)
[2017-02-18] MEDS: POTASSIUM CHLORIDE 20 MEQ TABLET.ER. PO SCH ×2 (07:56→21:54)
[2017-02-18] MEDS: ASPIRIN 81 MG TAB.CHEW PO SCH (07:56)
[2017-02-18] MEDS: GABAPENTIN 300 MG CAPSULE. PO SCH ×4 (07:56→21:53)
[2017-02-18] MEDS: FUROSEMIDE 80 MG TABLET PO SCH (07:56)
[2017-02-18] MEDS: diazePAM 5 MG TABLET PO SCH ×4 (07:57→21:53)
[2017-02-18] MEDS: methylPREDNISolone SOD SUCC PF 40 MG/ML VIAL. IV SCH (07:59)
[2017-02-18] MEDS: AZELASTINE NASAL SPRAY 30ML BOTTLE. NS SCH ×2 (08:00→21:55)
[2017-02-18] MEDS: LEVOMILNACIPRAN HYDROCHLORIDE 80 MG PO SCH (08:00)
[2017-02-18] MEDS: fentaNYL 25MCG/HR 1 PATCH PATCH TD SCH (08:01)
[2017-02-18] MEDS: PRIMIDONE 50 MG TABLET PO SCH ×4 (08:01→21:55)
[2017-02-18] MEDS ORDERED: NON FORMULARY ITEM (Fluticasone/Vilanterol (Breo Ellipta 100-25 Mcg Inh) 1 PUFF) IH SCH (09:00)
[2017-02-18] MEDS ORDERED: NON FORMULARY ITEM (Umeclidinium Bromide (Incruse Ellipta) 62.5 MCG) IH SCH (09:00)
[2017-02-18] MEDS ORDERED: MOXIFLOXACIN HCL PO SCH (09:00)
[2017-02-18] MEDS ORDERED: cefTRIAXone SODIUM 1 GM VIAL IV SCH (09:00)
[2017-02-18] MEDS: BUDESONIDE 0.5 MG/2 ML NEBU NEB SCH ×2 (10:50→21:33)
[2017-02-18] MEDS ORDERED: levoFLOXacin 500 MG TABLET PO ONE (13:00)
[2017-02-18] MEDS ORDERED: predniSONE 20 MG TABLET PO ONE (13:00)
[2017-02-18] MEDS: POTASSIUM CHLORIDE 8 MEQ TABLET.ER. PO SCH (13:34)
[2017-02-18] MEDS: levoFLOXacin 500 MG TABLET PO SCH (15:00)
--- NOTE | 2017-02-18 18:43 | NUR ---
Swing Bed Admission: Pt admitted 02/17/17 for PT/OT evaluate and treat. Patient Handbook for Jail given to patient. Nursing Problem: Pt admitted to swing for PT/OT evaluate and treat. Still treating unknown infection with antibiotics and prednisone. Cognitive/Behavioral: Pt is alert and oriented x4. Pt is calm and cooperative with cares. Pain: Pt denies pain at this time. Does have hydrocodone prn. Respiratory Status: Pt is on O2 3L/NC, which is normal for pt at home. Has a mild cough is productive, with thick green sputum expectorated after breathing treatments. Wears CPAP at night. Skin: Pts skin is intact. [place] warm and dry. Bowel/Bladder Continence: Pt is continent of bowel and bladder, independent with toileting. Last BM 02/18 ADL Functional Status: Pt is ambulatory with walker, independently. Fall(s) prior to admission? No
[2017-02-18] MEDS: PHENYTOIN SODIUM EXTENDED 100 MG CAPSULE PO SCH (21:52)
[2017-02-18] MEDS: MIRTAZAPINE 30 MG TABLET PO SCH (21:53)
[2017-02-18] MEDS: EZETIMIBE 10 MG TABLET PO SCH (21:54)
[2017-02-18] MEDS: MONTELUKAST 10 MG TABLET. PO SCH (21:54)
[2017-02-18] MEDS: ARIPiprazole 5 MG TABLET PO SCH (21:54)
[2017-02-18] MEDS: guaiFENesin DM 200MG/20MG 10 ML SYRUP PO PRN (22:34)
--- NOTE | 2017-02-19 05:00 | NUR ---
Swing Bed Admission: Pt admitted 02/17/17 for PT/OT evaluate and treat. Patient Handbook for Assisted given to patient. Nursing Problem: Pt admitted to swing for PT/OT evaluate and treat. Still treating unknown infection with antibiotics and prednisone. Cognitive/Behavioral: Pt is alert and oriented x4. Pt is calm and cooperative with cares. Pain: Pt denies pain at this time. Does have hydrocodone prn. Respiratory Status: Pt is on O2 3L/NC, which is normal for pt at home. Has a mild cough is productive, with thick green sputum expectorated after breathing treatments. Wears CPAP at night. Skin: Pts skin is intact. [place] warm and dry. Bowel/Bladder Continence: Pt is continent of bowel and bladder, independent with toileting. Last BM 02/18 ADL Functional Status: Pt is ambulatory with walker, independently. Fall(s) prior to admission? No
[2017-02-19] MEDS: IPRATRPIUM/ALBUTEROL 0.5/2.5MG 3 ML NEBU. NEB SCH ×4 (05:52→22:10)
[2017-02-19] MEDS: HEPARIN PF for SUB-Q USE 5,000 UNIT/0.5 ML VIAL. SQ SCH ×3 (06:48→20:29)
[2017-02-19 07:20] LABS: BASO % 0 % (0-3); EOS # 0.1 x10^3/uL (0.0-0.7); EOS % 3 % (0-3); HEMATOCRIT 31.6 % (36.0-47.0); HEMOGLOBIN 11.4 g/dL (12.0-15.5); LYMPH % 37 % (24-48); MEAN CORPUSCULAR HEMOGLOBIN 33 pg (25-35); MEAN CORPUSCULAR HGB CONC 36 g/dL (31-37); MEAN CORPUSCULAR VOLUME 91 fL (79-100); MONO # 0.3 x10^3/uL (0.0-1.1); MONO % 5 % (0-9); NEUT # 2.9 x10^3uL (1.8-7.7); NEUT % 55 % (31-73); PLATELET COUNT 166 x10^3/uL (140-400); RED BLOOD COUNT 3.48 x10^6/uL (3.50-5.40); RED CELL DISTRIBUTION WIDTH 15.2 % (11.5-14.5); WHITE BLOOD COUNT 5.3 x10^3/uL (4.0-11.0)
[2017-02-19 07:30] LABS: CALCIUM 9.1 mg/dL (8.5-10.1); CREATININE 0.7 mg/dL (0.6-1.0); GFR 83.7; POTASSIUM 3.7 mmol/L (3.5-5.1)
[2017-02-19 08:00] VITALS: BP 130/87
[2017-02-19] MEDS: POTASSIUM CHLORIDE 8 MEQ TABLET.ER. PO SCH (08:19)
[2017-02-19] MEDS: FUROSEMIDE 80 MG TABLET PO SCH (08:20)
[2017-02-19] MEDS: GABAPENTIN 300 MG CAPSULE. PO SCH ×4 (08:20→20:21)
[2017-02-19] MEDS: LACTOBACILLUS RHAMNOSUS GG 1 CAPSULE. PO SCH ×2 (08:20→20:20)
[2017-02-19] MEDS: POTASSIUM CHLORIDE 20 MEQ TABLET.ER. PO SCH ×2 (08:20→20:21)
[2017-02-19] MEDS: PRIMIDONE 50 MG TABLET PO SCH ×4 (08:20→20:20)
[2017-02-19] MEDS: diazePAM 5 MG TABLET PO SCH ×4 (08:20→20:22)
[2017-02-19] MEDS: ASPIRIN 81 MG TAB.CHEW PO SCH (08:21)
[2017-02-19] MEDS: PANTOPRAZOLE 40 MG TABLET. PO SCH (08:21)
[2017-02-19] MEDS: metFORMIN 500 MG TABLET PO SCH ×2 (08:21→18:53)
[2017-02-19] MEDS: AZELASTINE NASAL SPRAY 30ML BOTTLE. NS SCH ×2 (08:21→20:20)
[2017-02-19] MEDS: LEVOMILNACIPRAN HYDROCHLORIDE 80 MG PO SCH (08:24)
[2017-02-19] MEDS ORDERED: levoFLOXacin 500 MG TABLET PO SCH (09:00)
[2017-02-19] MEDS: BUDESONIDE 0.5 MG/2 ML NEBU NEB SCH ×2 (10:27→22:10)
--- NOTE | 2017-02-19 10:47 | NUR ---
Swing Bed Admission: Pt admitted 02/17/17 for PT/OT evaluate and treat. Patient Handbook for [facility] given to patient. Nursing Problem: Pt admitted to swing for PT/OT evaluate and treat. Still treating unknown infection with antibiotics and prednisone. Cognitive/Behavioral: Pt is alert and oriented x4. Pt is calm and cooperative with cares. Pain: Pt denies pain at this time. Does have hydrocodone prn. Respiratory Status: Pt is on O2 3L/NC, which is normal for pt at home. Has a mild cough is productive, with thick green sputum expectorated after breathing treatments. Wears CPAP at night. Skin: Pts skin is intact. [place] warm and dry. Bowel/Bladder Continence: Pt is continent of bowel and bladder, independent with toileting. Last BM 02/18 ADL Functional Status: Pt is ambulatory with walker, independently. Fall(s) prior to admission? No
[2017-02-19] MEDS: predniSONE 20 MG TABLET PO SCH (11:38)
[2017-02-19] MEDS: levoFLOXacin 500 MG TABLET PO SCH (15:16)
[2017-02-19] MEDS: MIRTAZAPINE 30 MG TABLET PO SCH (20:20)
[2017-02-19] MEDS: ARIPiprazole 5 MG TABLET PO SCH (20:20)
[2017-02-19] MEDS: guaiFENesin DM 200MG/20MG 10 ML SYRUP PO PRN (20:21)
[2017-02-19] MEDS: MONTELUKAST 10 MG TABLET. PO SCH (20:21)
[2017-02-19] MEDS: EZETIMIBE 10 MG TABLET PO SCH (20:21)
[2017-02-19] MEDS: PHENYTOIN SODIUM EXTENDED 100 MG CAPSULE PO SCH (20:21)
[2017-02-19 20:40] VITALS: BP 123/61
[2017-02-20] MEDS: HEPARIN PF for SUB-Q USE 5,000 UNIT/0.5 ML VIAL. SQ SCH ×3 (05:35→20:27)
[2017-02-20] MEDS: IPRATRPIUM/ALBUTEROL 0.5/2.5MG 3 ML NEBU. NEB SCH ×4 (05:41→21:25)
[2017-02-20 05:49] VITALS: BP 124/71
[2017-02-20] MEDS: metFORMIN 500 MG TABLET PO SCH ×2 (07:29→16:59)
[2017-02-20] MEDS: PANTOPRAZOLE 40 MG TABLET. PO SCH (07:29)
[2017-02-20] MEDS: POTASSIUM CHLORIDE 8 MEQ TABLET.ER. PO SCH (07:30)
[2017-02-20] MEDS: AZELASTINE NASAL SPRAY 30ML BOTTLE. NS SCH ×2 (07:30→20:15)
[2017-02-20] MEDS: diazePAM 5 MG TABLET PO SCH ×4 (07:30→20:17)
[2017-02-20] MEDS: LEVOMILNACIPRAN HYDROCHLORIDE 80 MG PO SCH (07:31)
[2017-02-20] MEDS: ASPIRIN 81 MG TAB.CHEW PO SCH (07:31)
[2017-02-20] MEDS: LACTOBACILLUS RHAMNOSUS GG 1 CAPSULE. PO SCH ×2 (07:31→20:16)
[2017-02-20] MEDS: FUROSEMIDE 80 MG TABLET PO SCH (07:32)
[2017-02-20] MEDS: POTASSIUM CHLORIDE 20 MEQ TABLET.ER. PO SCH ×2 (07:32→20:16)
[2017-02-20] MEDS: PRIMIDONE 50 MG TABLET PO SCH ×4 (07:33→20:15)
[2017-02-20] MEDS: GABAPENTIN 300 MG CAPSULE. PO SCH ×4 (07:33→20:16)
[2017-02-20] MEDS: predniSONE 20 MG TABLET PO SCH (07:33)
[2017-02-20] MEDS ORDERED: predniSONE 20 MG TABLET PO SCH (09:00)
[2017-02-20] MEDS: BUDESONIDE 0.5 MG/2 ML NEBU NEB SCH ×2 (09:56→21:25)
--- NOTE | 2017-02-20 10:52 | NUR ---
Swing Bed Nursing Note: Pt admitted 02/17/17 for PT/OT evaluate and treat. Patient Handbook for [facility] given to patient. Nursing Problem: Pt admitted to swing for PT/OT evaluate and treat. Still treating unknown infection with antibiotics and prednisone. Cognitive/Behavioral: Pt is A&Ox4. Pt is calm and cooperative with assessment & cares. Pt stated that she is glad to over on the SNU unit, "in my old room." Pt seemed excited about the chance of being DC'd on Saturday, stating that "my daughter is having [place] on Saturday that I don't want to miss." Pain: Pt denies pain at this time. Does have hydrocodone PRN. Respiratory Status: Pt is on O2 @ 3L/NC, which she wears at home normally. Pt with productive cough, with thick green sputum. PRN cough syrup given with HS medications. Pt wears CPAP at night. Skin: Skin is intact. [place] warm and dry. Bowel/Bladder Continence: Pt is continent of bowel and bladder, independent with toileting. LBM was on 02/19. ADL Functional Status: Pt is ambulatory with walker, independently. Pt can dress herself independently. Eats meals independently. Takes medications whole.
[2017-02-20] MEDS: guaiFENesin DM 200MG/20MG 10 ML SYRUP PO PRN ×2 (11:20→20:15)
[2017-02-20] MEDS: levoFLOXacin 500 MG TABLET PO SCH (13:53)
[2017-02-20 18:55] VITALS: BP 111/61
[2017-02-20] MEDS: MIRTAZAPINE 30 MG TABLET PO SCH (20:16)
[2017-02-20] MEDS: PHENYTOIN SODIUM EXTENDED 100 MG CAPSULE PO SCH (20:16)
[2017-02-20] MEDS: EZETIMIBE 10 MG TABLET PO SCH (20:16)
[2017-02-20] MEDS: MONTELUKAST 10 MG TABLET. PO SCH (20:16)
[2017-02-20] MEDS: ARIPiprazole 5 MG TABLET PO SCH (20:16)
--- NOTE | 2017-02-20 23:40 | NUR ---
Swing Bed Nursing Note: Pt admitted 02/17/17 for PT/OT evaluate and treat. Patient Handbook for [facility] given to patient. Nursing Problem: Pt admitted to swing for PT/OT evaluate and treat. Still treating unknown infection with antibiotics and prednisone. Cognitive/Behavioral: Pt is A&Ox4. Pt is calm and cooperative with assessment & cares. Pt stated that she had a good day but is ready for bed. Pt talked about being hopeful about the chance of being DC'd on Saturday, stating that "my family is having [place] on Saturday that I am so excited for I don't want to miss it and I need to make fruit salad." Pain: Pt denies pain at this time. Does have hydrocodone PRN. Respiratory Status: Pt is on O2 @ 3L/NC, which she wears at home normally. Pt with productive cough, with thick yellow/green sputum. PRN cough syrup given with HS medications. Pt wears CPAP at night. Skin: Skin is intact. [place] warm and dry. Pt had shower early this AM (02/20) Bowel/Bladder Continence: Pt is continent of bowel and bladder, independent with toileting. LBM was on 02/20. ADL Functional Status: Pt is ambulatory with walker, independently. Pt can dress herself independently. Eats meals independently. Takes medications whole.
--- NOTE | 2017-02-21 05:40 | NUR ---
When I came in to wake patient up for AM breathing treatment, patient was snoring heavily while wearing CPAP. New sleep study would be benefical for patient.
[2017-02-21] MEDS: HEPARIN PF for SUB-Q USE 5,000 UNIT/0.5 ML VIAL. SQ SCH ×3 (05:50→20:27)
[2017-02-21] MEDS: IPRATRPIUM/ALBUTEROL 0.5/2.5MG 3 ML NEBU. NEB SCH ×4 (05:52→20:43)
[2017-02-21 06:02] VITALS: BP 106/59
[2017-02-21 08:04] VITALS: BP 138/77
[2017-02-21] MEDS: FUROSEMIDE 80 MG TABLET PO SCH (08:07)
[2017-02-21] MEDS: predniSONE 20 MG TABLET PO SCH (08:07)
[2017-02-21] MEDS: LACTOBACILLUS RHAMNOSUS GG 1 CAPSULE. PO SCH ×2 (08:08→20:17)
[2017-02-21] MEDS: GABAPENTIN 300 MG CAPSULE. PO SCH ×4 (08:08→20:17)
[2017-02-21] MEDS: fentaNYL 25MCG/HR 1 PATCH PATCH TD SCH (08:09)
[2017-02-21] MEDS: POTASSIUM CHLORIDE 20 MEQ TABLET.ER. PO SCH ×2 (08:09→20:19)
[2017-02-21] MEDS: diazePAM 5 MG TABLET PO SCH ×4 (08:10→20:18)
[2017-02-21] MEDS: PANTOPRAZOLE 40 MG TABLET. PO SCH (08:12)
[2017-02-21] MEDS: metFORMIN 500 MG TABLET PO SCH ×2 (08:12→16:53)
[2017-02-21] MEDS: ASPIRIN 81 MG TAB.CHEW PO SCH (08:12)
[2017-02-21] MEDS: PRIMIDONE 50 MG TABLET PO SCH ×4 (08:13→20:19)
[2017-02-21] MEDS: AZELASTINE NASAL SPRAY 30ML BOTTLE. NS SCH ×2 (08:14→20:18)
[2017-02-21] MEDS: POTASSIUM CHLORIDE 8 MEQ TABLET.ER. PO SCH (08:15)
[2017-02-21] MEDS: LEVOMILNACIPRAN HYDROCHLORIDE 80 MG PO SCH (08:17)
[2017-02-21] MEDS: BUDESONIDE 0.5 MG/2 ML NEBU NEB SCH ×2 (10:58→20:43)
[2017-02-21] MEDS: levoFLOXacin 500 MG TABLET PO SCH (14:44)
--- NOTE | 2017-02-21 18:12 | NUR ---
Swing Bed Nursing Note: Nursing Problem: Pt admitted to [facility] for PT/OT evaluate and treat. Still treating unknown infection with antibiotics and prednisone. Cognitive/Behavioral: Pt is A&Ox4. Pt is calm and cooperative with assessment & cares. Pt talked about being happy about discharging tomorrow. Pain: Pt denies pain at this time. Does have hydrocodone PRN. Respiratory Status: Pt is on O2 @ 3L/NC, which she wears at home normally. Pt with productive cough, with thick yellow/green sputum. Pt wears CPAP at night. Skin: Skin is intact. [place] warm and dry. Bowel/Bladder Continence: Pt is continent of bowel and bladder, independent with toileting. LBM was on 02/20. ADL Functional Status: Pt is ambulatory with walker, independently. Pt can dress herself independently. Eats meals independently. Takes medications whole.
[2017-02-21 18:57] VITALS: BP 122/74
[2017-02-21] MEDS: PHENYTOIN SODIUM EXTENDED 100 MG CAPSULE PO SCH (20:17)
[2017-02-21] MEDS: ARIPiprazole 5 MG TABLET PO SCH (20:17)
[2017-02-21] MEDS: EZETIMIBE 10 MG TABLET PO SCH (20:18)
[2017-02-21] MEDS: MIRTAZAPINE 30 MG TABLET PO SCH (20:18)
[2017-02-21] MEDS: guaiFENesin DM 200MG/20MG 10 ML SYRUP PO PRN (20:19)
[2017-02-21] MEDS: MONTELUKAST 10 MG TABLET. PO SCH (20:19)
--- NOTE | 2017-02-21 23:00 | NUR ---
Swing Bed Nursing Note: Pt admitted 02/17/17 for PT/OT evaluate and treat. Patient Handbook for [facility] given to patient. Nursing Problem: Pt admitted to swing for PT/OT evaluate and treat. Still treating unknown infection with antibiotics and prednisone. Cognitive/Behavioral: Pt is A&Ox4. Pt is calm and cooperative with assessment & cares. Patient stated that she feels very cooped up being here and has so much to do for [place], she is hoping to discharge tomorrow. Pain: Pt denies pain at this time. Does have hydrocodone PRN. Respiratory Status: Pt is on O2 @ 3L/NC, which she wears at home normally. Pt with productive cough, with thick yellow/green sputum. PRN cough syrup given with HS medications. Pt wears CPAP at night. Skin: Skin is intact. [place] warm and dry. Bowel/Bladder Continence: Pt is continent of bowel and bladder, independent with toileting. LBM was on 02/20. ADL Functional Status: Pt is ambulatory with walker, independently. Pt can dress herself independently. Eats meals independently. Takes medications whole.
[2017-02-22] MEDS: HEPARIN PF for SUB-Q USE 5,000 UNIT/0.5 ML VIAL. SQ SCH (05:06)
[2017-02-22] MEDS: IPRATRPIUM/ALBUTEROL 0.5/2.5MG 3 ML NEBU. NEB SCH ×2 (05:42→09:33)
[2017-02-22 05:46] VITALS: BP 112/69
[2017-02-22] MEDS: metFORMIN 500 MG TABLET PO SCH (08:26)
[2017-02-22] MEDS: PANTOPRAZOLE 40 MG TABLET. PO SCH (08:26)
[2017-02-22] MEDS: PRIMIDONE 50 MG TABLET PO SCH (08:26)
[2017-02-22] MEDS: POTASSIUM CHLORIDE 8 MEQ TABLET.ER. PO SCH (08:26)
[2017-02-22] MEDS: POTASSIUM CHLORIDE 20 MEQ TABLET.ER. PO SCH (08:26)
[2017-02-22] MEDS: predniSONE 20 MG TABLET PO SCH (08:27)
[2017-02-22] MEDS: GABAPENTIN 300 MG CAPSULE. PO SCH (08:28)
[2017-02-22] MEDS: ASPIRIN 81 MG TAB.CHEW PO SCH (08:28)
[2017-02-22] MEDS: FUROSEMIDE 80 MG TABLET PO SCH (08:30)
[2017-02-22] MEDS: LACTOBACILLUS RHAMNOSUS GG 1 CAPSULE. PO SCH (08:30)
[2017-02-22] MEDS: AZELASTINE NASAL SPRAY 30ML BOTTLE. NS SCH (08:30)
[2017-02-22] MEDS: diazePAM 5 MG TABLET PO SCH (08:30)
[2017-02-22] MEDS: LEVOMILNACIPRAN HYDROCHLORIDE 80 MG PO SCH (08:31)
[2017-02-22] MEDS: BUDESONIDE 0.5 MG/2 ML NEBU NEB SCH (09:33)
[2017-02-22] MEDS ORDERED: PRED5TAB PO (12:01)
--- NOTE | 2017-02-22 13:21 | NUR ---
Discharge Note: MADELAINE RM Discharge instructions and discharge home medications reviewed with PATIENT AND SPOUSE and a copy given. All questions have been answered and understanding verbalized. The following instructions and handouts were given: MEDICATIONS, FOLLOW UP INSTRUCTIONS, AND EDUCATIONAL HANDOUTS GIVEN. PATIENT'S HOME MEDICATION RETURNED TO HER ON DISCHARGE. Discontinued lines and drains: NO PERIPHERAL IV TO DISCONTINUE Patient discharged to HOME with via PRIVATE VEHICLE. Swing Bed Nursing Note: Nursing Problem: Pt admitted to [facility] for PT/OT evaluate and treat. Cognitive/Behavioral: Pt is A&Ox4. Pt is calm and cooperative with assessment & cares. Pt states that she wants to leave today. Pain: Pt denies pain at this time. Does have hydrocodone PRN. Respiratory Status: Pt is on O2 @ 3L/NC, which she wears at home normally. Pt with productive cough, with thick yellow/green sputum. Pt wears CPAP at night. Skin: Skin is intact. [place] warm and dry. Bowel/Bladder Continence: Pt is continent of bowel and bladder, independent with toileting. LBM was on 02/20. ADL Functional Status: Pt is ambulatory with walker, independently. Pt can dress herself independently. Eats meals independently. Takes medications whole.
== END 2017-02-22 13:30 | disposition home health service (06) | DRG 192 ==
LOC: 1 SOUTH 09:00 → LND 02-18 05:55
PROVIDERS: ADMIT Family Medicine; ATTEND Family Medicine
PROC: 5A09357 Assistance with Respiratory Ventilation, Less than 24 Consecutive Hours, Continuous Positive Airway Pressure (ICD-10-PCS; principal; 2017-02-18)
DX: J44.1 Chronic obstructive pulmonary disease with (acute) exacerbation (principal); E66.01 Morbid (severe) obesity due to excess calories; Z99.81 Dependence on supplemental oxygen; R06.03 Acute respiratory distress; E11.9 Type 2 diabetes mellitus without complications; Z68.36 Body mass index [BMI] 36.0-36.9, adult; Z88.0 Allergy status to penicillin; Z88.2 Allergy status to sulfonamides; Z88.8 Allergy status to other drugs, medicaments and biological substances
CPT/HCPCS: 36415; 80048; 82947; 85025; 94640; 94760; J2920; J7512; J7620; J7626; 97110; 97530; 97535

== ENCOUNTER 2017-03-16 11:53 | Emergency (ER) | payer MEDICARE, BC ==
[~2017-03-16 11:53] MED LIST changes: +BUDE0.5A3 NEB; +CEFT1VIA6 IJ; +FENT1PAT15 TP; +GUAI5SYR PO; +LACT1CAP21 PO
--- NOTE | 2017-03-16 11:56 | PHYS DOC ---
Past History Past Medical History: Anxiety, Asthma, COPD, Depression, Fibromyalgia, GERD, Seizure, Other Past Surgical History: Appendectomy, Cancer Surgery, , Other Smoking: Non-smoker Alcohol Use: None Drug Use: None Adult General Chief Complaint Chief Complaint: high blood blood sugar [facility] Patient is a 66 year old F who presents with high blood sugar. She is a diabetic who takes oral medication only. Her blood sugar normally runs in the low 100s however this morning after eating a muffin and hot chocolate she noted her blood sugar to be in the 400s. She called her primary care doctor who advised her to come to the emergency room. She denies other associated symptoms at this time. She has no other exacerbating or alleviating factors. Review of Systems Review of Systems Constitutional: Denies fever or chills [] Eyes: Denies change in visual acuity, redness, or eye pain [] HENT: Denies nasal congestion or sore throat [] Respiratory: Denies cough or shortness of breath [] Cardiovascular: No additional information not addressed in [facility] [] GI: Denies abdominal pain, nausea, vomiting, bloody stools or diarrhea [] : Denies dysuria or hematuria [] Musculoskeletal: Denies back pain or joint pain [] Integument: Denies rash or skin lesions [] Neurologic: Denies headache, focal weakness or sensory changes [] Endocrine: Denies polyuria or polydipsia [] All other systems were reviewed and found to be within normal limits, except as documented in this note. Family History Family History No pertinent medical history was reported Current Medications Current Medications Current medications were reviewed Allergies Allergies Allergies Coded Allergies Type Severity Reaction Last Updated Verified Penicillins Allergy Intermediate 12/20/14 Yes Sulfa (Sulfonamide Antibiotics) Allergy Intermediate 12/20/14 Yes enoxaparin sodium Allergy Intermediate Rash 12/20/14 Yes erythromycin base Allergy Intermediate 12/20/14 Yes Physical Exam Physical Exam Constitutional: Well developed, well nourished, no acute distress, non-toxic appearance. [] HENT: Normocephalic, atraumatic Eyes: PERRLA, EOMI, conjunctiva normal, no discharge. [] Neck: Normal range of motion, no tenderness, supple, no stridor. [] Cardiovascular:Heart rate regular rhythm, Lungs & Thorax: Bilateral breath sounds clear to auscultation [] Abdomen: Bowel sounds normal, soft, no tenderness, no masses, no pulsatile masses. [] Skin: Warm, dry, no erythema, no rash. [] Back: No tenderness, no CVA tenderness. [] Extremities: No tenderness, no cyanosis, no clubbing, ROM intact, no edema. [] Neurologic: Alert and oriented X 3, normal motor function, normal sensory function, no focal deficits noted. [] Psychologic: Affect normal, judgement normal, mood normal. [] Current Patient Data Vital Signs Normal vital signs please review nursing dictation for specifics no Lab Results Laboratory Tests Test 03/16/17 12:15 03/16/17 12:27 White Blood Count 4.5 x10^3/uL (4.0-11.0) Red Blood Count 4.08 x10^6/uL (3.50-5.40) Hemoglobin 13.0 g/dL (12.0-15.5) Hematocrit 36.7 % (36.0-47.0) Mean Corpuscular Volume 90 fL (79-100) Mean Corpuscular Hemoglobin 32 pg (25-35) Mean Corpuscular Hemoglobin Concent 35 g/dL (31-37) Red Cell Distribution Width 15.3 % (11.5-14.5) Platelet Count 186 x10^3/uL (140-400) Neutrophils (%) (Auto) 45 % (31-73) Lymphocytes (%) (Auto) 40 % (24-48) Monocytes (%) (Auto) 9 % (0-9) Eosinophils (%) (Auto) 4 % (0-3) Basophils (%) (Auto) 1 % (0-3) Neutrophils # (Auto) 2.0 x10^3uL (1.8-7.7) Lymphocytes # (Auto) 1.8 x10^3/uL (1.0-4.8) Monocytes # (Auto) 0.4 x10^3/uL (0.0-1.1) Eosinophils # (Auto) 0.2 x10^3/uL (0.0-0.7) Basophils # (Auto) 0.1 x10^3/uL (0.0-0.2) Sodium Level 141 mmol/L (136-145) Potassium Level 3.4 mmol/L (3.5-5.1) Chloride Level 101 mmol/L (98-107) Carbon Dioxide Level 29 mmol/L (21-32) Anion Gap 11 (6-14) Blood Urea Nitrogen 13 mg/dL (7-20) Creatinine 1.0 mg/dL (0.6-1.0) Estimated GFR (Cockcroft-Gault) 55.5 BUN/Creatinine Ratio 13 (6-20) Glucose Level 246 mg/dL (70-99) Calcium Level 8.8 mg/dL (8.5-10.1) Magnesium Level 1.9 mg/dL (1.8-2.4) Total Bilirubin 0.2 mg/dL (0.2-1.0) Aspartate Amino Transf (AST/SGOT) 25 U/L (15-37) Alanine Aminotransferase (ALT/SGPT) 28 U/L (14-59) Alkaline Phosphatase 189 U/L (46-116) Total Protein 8.4 g/dL (6.4-8.2) Albumin 3.5 g/dL (3.4-5.0) Albumin/Globulin Ratio 0.7 (1.0-1.7) Urine Collection Type Void Urine Color Yellow Urine Clarity Hazy Urine pH 5.5 Urine Specific Cut Off 1.015 Urine Protein Neg (NEG-TRACE) Urine Glucose (UA) 100 mg/dL (NEG) Urine Ketones (Stick) Neg mg/dL (NEG) Urine Blood Neg (NEG) Urine Nitrite Neg (NEG) Urine Bilirubin Neg (NEG) Urine Urobilinogen Dipstick 0.2 mg/dL (0.2 mg/dL) Urine Leukocyte Esterase Neg (NEG) Urine RBC 0 /HPF (0-2) Urine WBC 1-4 /HPF (0-4) Urine Squamous Epithelial Cells Few /LPF Urine Bacteria Few /HPF (0-FEW) Urine Hyaline Casts Occ /HPF Urine Mucus Slight /LPF EKG EKG [] Radiology/Procedures Radiology/Procedures [] Course & Med Decision Making Course & Med Decision Making Pertinent Labs and Imaging studies reviewed. (See chart for details) Compared to her sugar at home her sugar here has decreased by almost half without intervention. At this time no intervention was recommended due to concern for causing hypoglycemia. Dragon Disclaimer Dragon Disclaimer This electronic medical record was generated, in whole or in part, using a voice recognition dictation system. Departure Departure: Impression: Primary Impression: Hyperglycemia Disposition: HOME, SELF-CARE Condition: STABLE Referrals: SCOOTER HOPKINS MD (PCP) Patient Instructions: Hyperglycemia Additional Instructions: Shaneka was seen in the emergency department for high blood sugar. No emergency medical condition was found on history or physical exam. She did have normal labs. She is advised follow-up with her primary care doctor as soon as possible for further management. SCOOTER BLACKMAN MD Mar 16, 2017 11:56
[2017-03-16 12:00] VITALS: BP 156/78
[2017-03-16] MEDS ORDERED: IV NORMAL SALINE 1,000ML 1,000 ML IV SCH (12:00)
[2017-03-16 12:28] LABS: BASO # 0.1 x10^3/uL (0.0-0.2); BASO % 1 % (0-3); EOS # 0.2 x10^3/uL (0.0-0.7); EOS % 4 % (0-3); HEMATOCRIT 36.7 % (36.0-47.0); LYMPH # 1.8 x10^3/uL (1.0-4.8); LYMPH % 40 % (24-48); MEAN CORPUSCULAR HEMOGLOBIN 32 pg (25-35); MEAN CORPUSCULAR HGB CONC 35 g/dL (31-37); MEAN CORPUSCULAR VOLUME 90 fL (79-100); MONO # 0.4 x10^3/uL (0.0-1.1); MONO % 9 % (0-9); NEUT % 45 % (31-73); PLATELET COUNT 186 x10^3/uL (140-400); RED BLOOD COUNT 4.08 x10^6/uL (3.50-5.40); RED CELL DISTRIBUTION WIDTH 15.3 % (11.5-14.5); WHITE BLOOD COUNT 4.5 x10^3/uL (4.0-11.0)
[2017-03-16 12:37] LABS: COLOR,URINE YELLOW
[2017-03-16 12:38] LABS: BILIRUBIN,URINE NEG (NEG); CLARITY,URINE HAZY; GLUCOSE,URINE 100 mg/dL (NEG); NITRITE,URINE NEG (NEG); UROBILINOGEN,URINE 0.2 mg/dL (0.2 mg/dL)
[2017-03-16 12:43] LABS: ALBUMIN 3.5 g/dL (3.4-5.0); ALBUMIN/GLOBULIN RATIO 0.7 (1.0-1.7); CALCIUM 8.8 mg/dL (8.5-10.1); GFR 55.5; MAGNESIUM 1.9 mg/dL (1.8-2.4); POTASSIUM 3.4 mmol/L (3.5-5.1); TOTAL BILIRUBIN 0.2 mg/dL (0.2-1.0); TOTAL PROTEIN 8.4 g/dL (6.4-8.2)
[2017-03-16 12:43] LABS: BACTERIA,URINE FEW /HPF (0-FEW); RBC,URINE 0 /HPF (0-2); SQUAMOUS EPITHELIAL CELL,UR FEW /LPF
[2017-03-16 12:44] LABS: HYALINE CASTS, URINE OCC /HPF
== END 2017-03-16 13:20 | disposition home or self-care (01) ==
LOC: ER 11:53
DX: E11.65 Type 2 diabetes mellitus with hyperglycemia (principal); J44.9 Chronic obstructive pulmonary disease, unspecified; M79.7 Fibromyalgia; K21.9 Gastro-esophageal reflux disease without esophagitis; F41.9 Anxiety disorder, unspecified; F32.9 Major depressive disorder, single episode, unspecified; Z88.0 Allergy status to penicillin; Z88.1 Allergy status to other antibiotic agents; Z88.2 Allergy status to sulfonamides; Z88.8 Allergy status to other drugs, medicaments and biological substances
CPT/HCPCS: 36415; 80048; 80053; 81001; 83735; 85025; 96360; 99284-25; J7030

== ENCOUNTER 2017-03-24 13:40 | Inpatient (IN) | payer MEDICARE, BC ==
[~2017-03-24] VITALS: Ht 160 cm; Wt 101.2 kg
[2017-03-24] MEDS ORDERED: IPRATRPIUM/ALBUTEROL 0.5/2.5MG 3 ML NEBU. ONE (13:59)
[2017-03-24 14:29] LABS: BASO # 0.1 x10^3/uL (0.0-0.2); BASO % 1 % (0-3); EOS # 0.3 x10^3/uL (0.0-0.7); EOS % 4 % (0-3); HEMATOCRIT 40.3 % (36.0-47.0); HEMOGLOBIN 13.7 g/dL (12.0-15.5); LYMPH # 2.5 x10^3/uL (1.0-4.8); LYMPH % 38 % (24-48); MEAN CORPUSCULAR HEMOGLOBIN 31 pg (25-35); MEAN CORPUSCULAR HGB CONC 34 g/dL (31-37); MEAN CORPUSCULAR VOLUME 91 fL (79-100); MONO # 0.7 x10^3/uL (0.0-1.1); MONO % 10 % (0-9); NEUT # 3.1 x10^3uL (1.8-7.7); NEUT % 47 % (31-73); PLATELET COUNT 201 x10^3/uL (140-400); RED BLOOD COUNT 4.45 x10^6/uL (3.50-5.40); RED CELL DISTRIBUTION WIDTH 15.7 % (11.5-14.5); WHITE BLOOD COUNT 6.6 x10^3/uL (4.0-11.0)
--- NOTE | 2017-03-24 14:44 | RAD ---
EXAM: Chest, single view. HISTORY: Shortness of breath. COMPARISON: 02/14/2017. FINDINGS: A frontal view of the chest is obtained. There is trace pulmonary congestion. There is stable linear scarring or atelectasis within the bilateral mid lungs. There is a suspected small left pleural effusion. There is no pneumothorax. The heart is normal in size for portable technique. There are chronic left posterior rib fractures. IMPRESSION: Trace pulmonary congestion with a suspected small left pleural effusion.
[2017-03-24 14:46] LABS: INFLUENZA A PATIENT NEGATIVE (NEGATIVE); INFLUENZA B PATIENT NEGATIVE (NEGATIVE)
[2017-03-24 14:49] LABS: ALBUMIN 3.6 g/dL (3.4-5.0); ALBUMIN/GLOBULIN RATIO 0.8 (1.0-1.7); CALCIUM 8.9 mg/dL (8.5-10.1); CREATININE 0.7 mg/dL (0.6-1.0); GFR 83.7; POTASSIUM 3.9 mmol/L (3.5-5.1); TOTAL BILIRUBIN 0.2 mg/dL (0.2-1.0)
[2017-03-24 15:09] LABS: BGAS PH 7.38 (7.35-7.45)
[2017-03-24] MEDS ORDERED: IV NORMAL SALINE 1,000ML 1,000 ML IV SCH (15:26)
--- NOTE | 2017-03-24 15:49 | PHYS DOC ---
General Chief Complaint: SHORTNESS OF BREATH Stated Complaint: SOA Time Seen by MD: 13:49 Source: patient, family, old records Exam Limitations: clinical condition Problems: History of Present Illness Initial Comments Patient is a 66-year-old female brought to the ED by her spouse for confusion. Spouse states that they recently returned from [facility] where they went to a alliance party, patient's spouse states that he forgot to take his 's BiPAP. He kept her on 3 L nasal cannula overnight however on the way back to [place] noticed her to be groggy and apparently confused. On ED arrival the patient 88% on room air increased to 96% on 3 L nasal cannula after DuoNeb treatment. ED vitals: 98.6, 105, 16, 132/66, O2 sats as above Timing/Duration: other Severity: moderate Modifying Factors: improves with other Associated Symptoms: other Allergies: Coded Allergies: Penicillins (Verified Allergy, Intermediate, 12/20/14) Sulfa (Sulfonamide Antibiotics) (Verified Allergy, Intermediate, 12/20/14) enoxaparin sodium (Verified Allergy, Intermediate, Rash, 12/20/14) erythromycin base (Verified Allergy, Intermediate, 12/20/14) Past Medical History Medical History: other (depression, anxiety, COPD, seizure, GERD, asthma, diabetes, COPD, chronic respiratory failure uses 3 L nasal cannula at all times as well as BiPAP at night, cataracts, osteoarthritis, malignant melanoma, lower extremity DVT, PE) Surgical History: other ( section, appendectomy, melanoma removal right arm and shoulder, [place] filter placed 2008, cataract surgery left eye , right total knee replacement, right shoulder surgery) Social History Smoker: non-smoker Alcohol: none Drugs: none Review of Systems All Other Systems: Reviewed and Negative (patient confused accurate review of systems unobtainable) Physical Exam General Appearance: moderate distress (very anxious and short of breath on arrival, confused) Ear, Nose, Throat: hearing grossly normal, normal ENT inspection, normal pharynx Neck: non-tender, supple Respiratory: chest non-tender, respiratory distress, accessory muscle use, wheezing Cardiovascular: normal peripheral pulses, tachycardia Gastrointestinal: non tender, soft Back: no CVA tenderness, no vertebral tenderness Extremities: normal range of motion, non-tender Neurologic/Psychiatric: 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 PATIENT: MADELAINE RM ACCOUNT: [id number] : 1950 LOCATION: ER AGE: 66 SEX: F EXAM STATUS: PRE ER ORD. PHYSICIAN: SARAH MCCURDY DO REASON: sob PROCEDURE: PORTABLE CHEST 1V EXAM: Chest, single view. HISTORY: Shortness of breath. COMPARISON: 02/14/2017. FINDINGS: A frontal view of the chest is obtained. There is trace pulmonary congestion. There is stable linear scarring or atelectasis within the bilateral mid lungs. There is a suspected small left pleural effusion. There is no pneumothorax. The heart is normal in size for portable technique. There are chronic left posterior rib fractures. IMPRESSION: Trace pulmonary congestion with a suspected small left pleural effusion. DICTATED AND SIGNED BY: RAY PALMER MD DATE: 03/24/17 1438 CC: SCOOTER HOPKINS MD; SARAH MCCURDY DO ~ Labs unremarkable aside from lactic acid 3.5, catheter urine specimen with moderate squamous epithelial cells and many bacteria no leukocyte esterase or nitrites, influenza A and B swabs negative, urine drug screen positive for barbiturates and benzodiazepines. I discussed the patient over the phone with her primary care physician Dr. Hopkins. After thorough discussion of the patient he requested no antimicrobial treatment at this time await urine culture. He requested that I not give any fluids or bicarbonate and simply provide respiratory support and lab monitoring, consult Dr. Stephens who is familiar with the patient. Although patient does have history of seizure disorder at no time to the ED course due to the patient demonstrate any seizure activity. Departure Disposition: 09 ADMITTED INPATIENT Diagnosis: AMS, lactic acidosis Condition: STABLE SARAH MCCURDY DO Mar 24, 2017 15:49
--- NOTE | 2017-03-24 16:15 | EKG ---
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
[2017-03-24 16:36] LABS: BARBITURATES POS (NEG); BENZODIAZEPINES POS (NEG); CANNABINOIDS NEG (NEG); COCAINE NEG (NEG); METHADONE NEG (NEG); OPIATES NEG (NEG); PHENCYCLIDINE NEG (NEG)
[2017-03-24 16:39] LABS: AMPHETAMINE/METHAMPHETAMINE NEG (NEG)
[2017-03-24 16:56] LABS: BACTERIA,URINE MANY /HPF (0-FEW); BILIRUBIN,URINE NEG (NEG); CLARITY,URINE HAZY; COLOR,URINE YELLOW; GLUCOSE,URINE 100 mg/dL (NEG); NITRITE,URINE NEG (NEG); RBC,URINE 0 /HPF (0-2); SQUAMOUS EPITHELIAL CELL,UR MOD /LPF; UROBILINOGEN,URINE 0.2 mg/dL (0.2 mg/dL)
[2017-03-24] MEDS ORDERED: ACETAMINOPHEN 325 MG TABLET PO PRN (17:30)
[2017-03-24 18:15] VITALS: BP 123/63
[2017-03-24] MEDS ORDERED: IPRATRPIUM/ALBUTEROL 0.5/2.5MG 3 ML NEBU. NEB SCH (20:00)
[2017-03-24] MEDS: IV NORMAL SALINE 1,000ML 1,000 ML IV SCH (20:00)
[2017-03-24 20:14] VITALS: BP 136/70
[2017-03-24] MEDS ORDERED: ALBUTEROL SULFATE 2.5 MG/3 ML NEBU. NEB PRN (21:30)
[2017-03-24] MEDS ORDERED: ALBUTEROL SULFATE 8GM INHALER. IH PRN (21:30)
[2017-03-24] MEDS ORDERED: HYDROcodone/APAP 7.5/325MG 1 TAB TABLET PO PRN (21:30)
[2017-03-24] MEDS ORDERED: FLUTICASONE 50MCG/NASAL SPRAY 16GM BOTTLE. NS PRN (21:30)
[2017-03-24] MEDS: POTASSIUM CHLORIDE 20 MEQ TABLET.ER. PO SCH (22:08)
[2017-03-24] MEDS: GABAPENTIN 300 MG CAPSULE. PO SCH (22:09)
[2017-03-24] MEDS: diazePAM 5 MG TABLET PO SCH (22:10)
[2017-03-24] MEDS: EZETIMIBE 10 MG TABLET PO SCH (22:11)
[2017-03-24] MEDS: MONTELUKAST 10 MG TABLET. PO SCH (22:11)
[2017-03-24] MEDS: ARIPiprazole 5 MG TABLET PO SCH (22:12)
[2017-03-24] MEDS: PHENYTOIN SODIUM EXTENDED 100 MG CAPSULE PO SCH (22:12)
[2017-03-24] MEDS: MIRTAZAPINE 15 MG TABLET PO SCH (22:13)
[2017-03-25 00:30] VITALS: BP 132/71
[2017-03-25 05:13] LABS: BASO % 1 % (0-3); EOS # 0.2 x10^3/uL (0.0-0.7); EOS % 4 % (0-3); HEMATOCRIT 34.2 % (36.0-47.0); HEMOGLOBIN 11.8 g/dL (12.0-15.5); LYMPH # 2.3 x10^3/uL (1.0-4.8); LYMPH % 41 % (24-48); MEAN CORPUSCULAR HEMOGLOBIN 31 pg (25-35); MEAN CORPUSCULAR HGB CONC 34 g/dL (31-37); MEAN CORPUSCULAR VOLUME 91 fL (79-100); MONO # 0.5 x10^3/uL (0.0-1.1); MONO % 8 % (0-9); NEUT # 2.6 x10^3uL (1.8-7.7); NEUT % 46 % (31-73); PLATELET COUNT 162 x10^3/uL (140-400); RED BLOOD COUNT 3.77 x10^6/uL (3.50-5.40); RED CELL DISTRIBUTION WIDTH 16.3 % (11.5-14.5); WHITE BLOOD COUNT 5.6 x10^3/uL (4.0-11.0)
[2017-03-25] MEDS: IV NORMAL SALINE 1,000ML 1,000 ML IV SCH (05:30)
[2017-03-25 06:01] VITALS: BP 112/64
[2017-03-25 06:11] LABS: CALCIUM 8.5 mg/dL (8.5-10.1); CREATININE 0.8 mg/dL (0.6-1.0); GFR 71.8
[2017-03-25] MEDS: IPRATRPIUM/ALBUTEROL 0.5/2.5MG 3 ML NEBU. NEB SCH ×4 (07:00→22:19)
[2017-03-25] MEDS: PANTOPRAZOLE 40 MG TABLET. PO SCH (07:56)
[2017-03-25] MEDS: metFORMIN 500 MG TABLET PO SCH ×2 (08:36→12:16)
[2017-03-25] MEDS: FUROSEMIDE 40 MG TABLET PO SCH ×2 (08:36→16:33)
[2017-03-25] MEDS: PRIMIDONE 50 MG TABLET PO SCH ×4 (08:36→20:49)
[2017-03-25] MEDS: ASPIRIN 81 MG TAB.CHEW PO SCH (08:36)
[2017-03-25] MEDS: POTASSIUM CHLORIDE 20 MEQ TABLET.ER. PO SCH ×2 (08:37→20:48)
[2017-03-25] MEDS: predniSONE 5 MG TABLET PO SCH (08:37)
[2017-03-25] MEDS: diazePAM 5 MG TABLET PO SCH ×4 (08:37→20:47)
[2017-03-25] MEDS: GABAPENTIN 300 MG CAPSULE. PO SCH ×3 (08:38→20:48)
[2017-03-25] MEDS ORDERED: BUDESONIDE 0.5 MG/2 ML NEBU NEB SCH (09:00)
[2017-03-25] MEDS ORDERED: NON FORMULARY ITEM (Fluticasone/Vilanterol (Breo Ellipta 100-25 Mcg Inh) 1 PUFF) IH SCH (09:00)
[2017-03-25] MEDS ORDERED: NON FORMULARY ITEM (Umeclidinium Bromide (Incruse Ellipta) 62.5 MCG) IH SCH (09:00)
[2017-03-25] MEDS: AZELASTINE NASAL SPRAY 30ML BOTTLE. NS SCH ×2 (10:07→20:46)
[2017-03-25 10:31] VITALS: BP 125/87
[2017-03-25] MEDS: BUDESONIDE 0.5 MG/2 ML NEBU NEB SCH ×2 (11:29→22:19)
[2017-03-25] MEDS: LEVOMILNACIPRAN HYDROCHLORIDE 80 MG PO SCH (12:16)
--- NOTE | 2017-03-25 15:59 | PDOC2 ---
CONSULT Date of Admission DATE: 03/25/17 TIME: 15:56 Reason for Consult: chf History of Present Illness Ms Dean is a 66 year old female who presented to the ED with decreased level of consciousness and dyspnea after being without her BiPap for a night. She reports her biggest complaint is not sleeping well and being very fatigued. She denies any increased dyspnea outside of her norm with COPD. She denies chest pain, palpitations or syncope. She denies congestive symptoms. She reports limited functional capacity and only ambulates with a walker and is currently undergoing physical therapy. She does report a history of atrial fibrillation for which she follows with Dr Jhaveri. Past Medical History depression, anxiety, seizure, GERD, asthma, diabetes, atrial fibrillation, COPD , chronic respiratory failure uses 3 L nasal cannula at all times, BiPAP at night, cataracts, osteoarthritis, malignant melanoma, lower extremity DVT, PE s/ p IVC filter Past Surgical History section, appendectomy, melanoma removal right arm and shoulder, [place] filter placed 2008, cataract surgery left eye, right total knee replacement, right shoulder surgery Social History non smoker, no significant ETOH, no illicit drugs Current Medications Current Medications Albuterol/ Ipratropium (Duoneb) 3 ml STK-MED ONCE .ROUTE ; Start 03/24/17 at 13: 59; Stop 03/24/17 at 14:00; Status DC Sodium Chloride 1,000 ml @ 1,000 mls/hr Q1H IV Last administered on 03/24/17at 15:26; Start 03/24/17 at 15:26; Stop 03/24/17 at 16:25; Status DC Sodium Chloride 1,000 ml @ 100 mls/hr Q10H IV Last administered on 03/25/17at 05:30; Start 03/24/17 at 17:18; Stop 03/25/17 at 15:38; Status DC Acetaminophen (Tylenol) 650 mg PRN Q4HRS PRN PO FEVER; Start 03/24/17 at 17:30 ; Stop 03/25/17 at 17:29 Albuterol/ Ipratropium (Duoneb) 3 ml RTQID NEB Last administered on 03/24/17at 21:36; Start 03/24/17 at 20:00; Stop 03/24/17 at 21:54; Status DC Albuterol Sulfate (Ventolin) 2.5 mg PRN Q6HRS PRN NEB SHORTNESS OF BREATH; Start 03/24/17 at 21:30 Albuterol Sulfate (Ventolin Hfa) 1 puff PRN QID PRN IH FOR ASTHMA; Start at 21:30; Status UNV Aripiprazole (Abilify) 5 mg QHS PO Last administered on 03/24/17at 22:12; Start 03/24/17 at 22:00 Aspirin (Children'S Aspirin) 81 mg DAILY PO Last administered on 03/25/17at 08: 36; Start 03/25/17 at 09:00 Budesonide (Pulmicort) 1 mg QID NEB ; Start 03/25/17 at 09:00; Status UNV Diazepam (Valium) 2.5 mg TIDPC PO Last administered on 03/25/17at 12:17; Start 03/25/17 at 08:30 Diazepam (Valium) 7.5 mg QHS PO Last administered on 03/24/17at 22:10; Start at 22:00 EZETIMIBE (Zetia) 10 mg QHS PO Last administered on 03/24/17at 22:11; Start at 22:00 Fentanyl (Duragesic 25mcg/ Hr) 1 patch Q3DAYS TD ; Start 03/27/17 at 09:00 Fluticasone Propionate (Flonase) 2 spray PRN DAILY PRN NS DRYNESS; Start at 21:30 Furosemide (Lasix) 40 mg BID94 PO Last administered on 03/25/17at 08:36; Start 03/25/17 at 09:00 Acetaminophen/ Hydrocodone Bitart (Lortab 7.5/325) 1 tab PRN Q6HRS PRN PO SEVERE PAIN; Start 03/24/17 at 21:30 Metformin HCl (Glucophage) 500 mg BIDWMEALS PO Last administered on 03/25/17at 12:16; Start 03/25/17 at 08:00 Montelukast Sodium (Singulair) 10 mg QHS PO Last administered on 03/24/17at 22: 11; Start 03/24/17 at 22:00 Pantoprazole Sodium (Protonix) 40 mg DAILYAC PO Last administered on 03/25/17at 07:56; Start 03/25/17 at 07:30 Phenytoin Sodium (Dilantin) 400 mg QHS PO Last administered on 03/24/17at 22:12 ; Start 03/24/17 at 22:00 Potassium Chloride (Klor-Con) 20 meq BID PO Last administered on 03/25/17at 08: 37; Start 03/24/17 at 22:00 Prednisone (Prednisone) 5 mg DAILY PO Last administered on 03/25/17at 08:37; Start 03/25/17 at 09:00 Primidone (Mysoline) 100 mg QID PO Last administered on 03/25/17at 14:17; Start 03/25/17 at 09:00 Azelastine HCl (Astelin) 2 spray BID NS Last administered on 03/25/17at 10:07; Start 03/25/17 at 09:00 Non-Formulary Medication 1 puff DAILY IH ; Start 03/25/17 at 09:00; Status UNV Gabapentin (Neurontin) 600 mg TID PO Last administered on 03/25/17at 14:10; Start 03/24/17 at 22:00 Non-Formulary Medication 80 mg DAILY PO Last administered on 03/25/17at 12:16; Start 03/25/17 at 12:00 Mirtazapine (Remeron) 22.5 mg QHS PO Last administered on 03/24/17at 22:13; Start 03/24/17 at 22:00 Non-Formulary Medication 62.5 mcg DAILY IH ; Start 03/25/17 at 09:00; Status UNV Albuterol/ Ipratropium (Duoneb) 3 ml RTQID NEB Last administered on 03/25/17at 11:29; Start 03/25/17 at 08:00 Budesonide (Pulmicort) 0.5 mg RTBID NEB Last administered on 03/25/17at 11:29; Start 03/25/17 at 08:00 Active Scripts Active Prednisone 5 Mg Tablet 5 Mg PO DAILY 5 tablets for 3 days, then decrease by 1 tablet every 3rd day until gone Mysoline (Primidone) 50 Mg Tablet 100 Mg PO QID 30 Days Metformin Hcl 500 Mg Tablet 500 Mg PO BIDWMEALS 90 Days Albuterol Sulfate Neb Soln (Albuterol Sulfate) 2.5 Mg/3 Ml Vial.neb 2.5 Mg NEB PRN Q6HRS PRN 30 Days Reported FENTANYL 25mcg/hr (Fentanyl) 1 Each Patch.td72 1 Patch TP Q3DAYS LAST DOSE GIVEN: DATE: YESTER TIME: AM NEXT DOSE DUE: DATE: SATURDAY TIME: AM Pulmicort (Budesonide) 0.5 Mg/2 Ml Ampul.neb 1 Vial NEB QID LAST DOSE GIVEN: DATE: TODAY TIME: AM NEXT DOSE DUE: DATE: TODAY TIME: PM Astepro (Azelastine Hcl) 205.5 Mcg/0.137 Ml [place].pump 2 Spr NS BID LAST DOSE GIVEN: DATE: TODAY TIME: AM NEXT DOSE DUE: DATE: TODAY TIME: PM Fluticasone Propionate Nasal [place] (Fluticasone Propionate) 16 Gm [place].susp 2 Spr NS DAILY PRN LAST DOSE GIVEN: NOT GIVEN THIS ADMISSION NEXT DOSE DUE: DATE: TODAY TIME: IF NEEDED Ventolin Hfa Inhaler (Albuterol Sulfate) 18 Gm Hfa.aer.ad 1 Puff IH PRN QID PRN LAST DOSE GIVEN: NOT GIVEN THIS ADMISSION NEXT DOSE DUE: DATE: TODAY TIME: IF NEEDED Incruse Ellipta (Umeclidinium [place]) 62.5 Mcg Blst.w.dev 62.5 Mcg IH DAILY LAST DOSE GIVEN: NOT GIVEN THIS ADMISSION NEXT DOSE DUE: DATE: RESTART TOMORROW TIME: AM Breo Ellipta 100-25 Mcg Inh (Fluticasone/Vilanterol) 1 Each Aer.pow.ba 1 Puff IH DAILY LAST DOSE GIVEN: NOT GIVEN THIS ADMISSION NEXT DOSE DUE: DATE: TOMORROW TIME: AM Fetzima (Levomilnacipran Hydrochloride) 80 Mg Cap.sa.24h 80 Mg PO DAILY LAST DOSE GIVEN: DATE: TODAY TIME: AM NEXT DOSE DUE: DATE: TOMORROW TIME: AM Remeron (Mirtazapine) 45 Mg Tablet 0.5 Tab PO QHS LAST DOSE GIVEN: DATE: YESTERDAY TIME: AT BEDTIME NEXT DOSE DUE: DATE: TODAY TIME: AT BEDTIME Furosemide 80 Mg Tablet 40 Mg PO BID LAST DOSE GIVEN: DATE: TODAY TIME: AM NEXT DOSE DUE: DATE: TOMORROW TIME: AM Abilify (Aripiprazole) 5 Mg Tablet 1 Tab PO QHS LAST DOSE GIVEN: DATE: YESTERDAY TIME: AT BEDTIME NEXT DOSE DUE: DATE: TODAY TIME: AT BEDTIME Hydrocodone-Apap 7.5-325 (Hydrocodone Bit/Acetaminophen) 1 Each Tablet 1-2 Tab PO PRN Q6HRS PRN LAST DOSE GIVEN: NOT GIVEN TODAY NEXT DOSE DUE: DATE: TODAY TIME: IF NEEDED TIME: IF AND WHEN NEEDED Gralise (Gabapentin) 600 Mg Tab.er.24h 1 Tab PO TID LAST DOSE GIVEN: DATE: TODAY TIME: AM NEXT DOSE DUE: DATE: TODAY TIME: AFTERNOON Klor-Con M20 (Potassium Chloride) 20 Meq Tab.er.prt 1 Tab PO BID LAST DOSE GIVEN: DATE: TODAY TIME: AM NEXT DOSE DUE: DATE: TODAY TIME: PM Montelukast Sodium Tablet (Montelukast Sodium) 10 Mg Tablet 10 Mg PO QHS LAST DOSE GIVEN: DATE: YESTER TIME: AT BEDTIME NEXT DOSE DUE: DATE: TODAY TIME: AT BEDTIME Protonix (Pantoprazole Sodium) 40 Mg Tablet.dr 40 Mg PO DAILYAC LAST DOSE GIVEN: DATE: TIME: BEFORE BREAKFAST NEXT DOSE DUE: DATE: TOMORROW TIME: BEFORE BREAKFAST Dilantin (Phenytoin Sodium Extended) 100 Mg Capsule 400 Mg PO QHS LAST DOSE GIVEN: DATE: YESTER TIME: AT BEDTIME NEXT DOSE DUE: DATE: TODAY TIME: AT BEDTIME Aspirin 81 Mg Tab.chew 81 Mg PO DAILY LAST DOSE GIVEN: DATE: TODAY TIME: AM NEXT DOSE DUE: DATE: TOMORR TIME: AM Zetia (Ezetimibe) 10 Mg Tablet 10 Mg PO QHS LAST DOSE GIVEN: DATE: YES TIME: AT BEDTIME NEXT DOSE DUE: DATE: TIME: AT BEDTIME Diazepam 5 Mg Tablet 7.5 Mg PO QHS LAST DOSE GIVEN: DATE: YESTER TIME: AT BEDTIME NEXT DOSE DUE: DATE: TODAY TIME: AT BEDTIME Diazepam 5 Mg Tablet 2.5 Mg PO TIDPC LAST DOSE GIVEN: DATE: TODAY TIME: AM NEXT DOSE DUE: DATE: TODAY TIME: AFTERNOON Allergies: Coded Allergies: Penicillins (Verified Allergy, Intermediate, 12/20/14) Sulfa (Sulfonamide Antibiotics) (Verified Allergy, Intermediate, 12/20/14) enoxaparin sodium (Verified Allergy, Intermediate, Rash, 12/20/14) erythromycin base (Verified Allergy, Intermediate, 12/20/14) Review of System as per HPI General: Alert, Oriented X3, Cooperative, No acute distress HEENT: Atraumatic, Mucous membr. moist/pink Lungs: Other (right basilar crackles, otherwise clear) Heart: Regular rate, Normal S1, Normal S2 Abdomen: Normal bowel sounds, Soft, No tenderness Extremities: No cyanosis, Normal pulses, Other (trace edema) Neuro: Normal speech, Strength at 5/5 X4 ext Psych/Mental Status: Mental status NL, Mood NL VITALS Vital Signs Date Time Temp Pulse Resp B/P (MAP) Pulse Ox O2 Delivery O2 Flow Rate FiO2 03/25/17 11:30 97 Nasal Cannula 2.0 03/25/17 10:31 98.0 91 20 125/87 (100) Labs Laboratory Tests Test 03/24/17 14:00 03/24/17 14:15 03/24/17 15:40 03/24/17 16:23 Blood Gas pH 7.38 (7.35-7.45) Blood Gas PCO2 47 mmHg (35-45) Blood Gas PO2 110 mmHg (80-100) Blood Gas HCO3 28 mmol/L (22-26) Arterial Bld O2 Saturation (Calc) 98 % (92-99) FiO2 28 % White Blood Count 6.6 x10^3/uL (4.0-11.0) Red Blood Count 4.45 x10^6/uL (3.50-5.40) Hemoglobin 13.7 g/dL (12.0-15.5) Hematocrit 40.3 % (36.0-47.0) Mean Corpuscular Volume 91 fL (79-100) Mean Corpuscular Hemoglobin 31 pg (25-35) Mean Corpuscular Hemoglobin Concent 34 g/dL (31-37) Red Cell Distribution Width 15.7 % (11.5-14.5) Platelet Count 201 x10^3/uL (140-400) Neutrophils (%) (Auto) 47 % (31-73) Lymphocytes (%) (Auto) 38 % (24-48) Monocytes (%) (Auto) 10 % (0-9) Eosinophils (%) (Auto) 4 % (0-3) Basophils (%) (Auto) 1 % (0-3) Neutrophils # (Auto) 3.1 x10^3uL (1.8-7.7) Lymphocytes # (Auto) 2.5 x10^3/uL (1.0-4.8) Monocytes # (Auto) 0.7 x10^3/uL (0.0-1.1) Eosinophils # (Auto) 0.3 x10^3/uL (0.0-0.7) Basophils # (Auto) 0.1 x10^3/uL (0.0-0.2) D-Dimer (Nicole) < 0.19 mg/L (0.00-0.50) Sodium Level 143 mmol/L (136-145) Potassium Level 3.9 mmol/L (3.5-5.1) Chloride Level 104 mmol/L (98-107) Carbon Dioxide Level 26 mmol/L (21-32) Anion Gap 13 (6-14) Blood Urea Nitrogen 12 mg/dL (7-20) Creatinine 0.7 mg/dL (0.6-1.0) Estimated GFR (Cockcroft-Gault) 83.7 BUN/Creatinine Ratio 17 (6-20) Glucose Level 145 mg/dL (70-99) Lactic Acid Level 3.5 mmol/L (0.4-2.0) Calcium Level 8.9 mg/dL (8.5-10.1) Total Bilirubin 0.2 mg/dL (0.2-1.0) Aspartate Amino Transf (AST/SGOT) 26 U/L (15-37) Alanine Aminotransferase (ALT/SGPT) 27 U/L (14-59) Alkaline Phosphatase 185 U/L (46-116) Creatine Kinase 79 U/L (26-192) Troponin I Quantitative < 0.017 ng/mL (0-0.055) RZ-Qxy-Y-Type Natriuretic Peptide 8 pg/mL (0-124) Total Protein 8.0 g/dL (6.4-8.2) Albumin 3.6 g/dL (3.4-5.0) Albumin/Globulin Ratio 0.8 (1.0-1.7) Influenza Type A (Rapid) Negative (NEGATIVE) Influenza Type B (Rapid) Negative (NEGATIVE) Urine Opiates Screen Neg (NEG) Urine Methadone Screen Neg (NEG) Urine Barbiturates Pos (NEG) Urine Phencyclidine Screen Neg (NEG) Urine Amphetamine/Methamphetamine Neg (NEG) Urine Benzodiazepines Screen Pos (NEG) Urine Cocaine Screen Neg (NEG) Urine Cannabinoids Screen Neg (NEG) Urine Ethyl Alcohol Neg (NEG) Urine Collection Type U cath Urine Color Yellow Urine Clarity Hazy Urine pH 5.5 Urine Specific [place] 1.015 Urine Protein Neg (NEG-TRACE) Urine Glucose (UA) 100 mg/dL (NEG) Urine Ketones (Stick) Neg mg/dL (NEG) Urine Blood Trace (NEG) Urine Nitrite Neg (NEG) Urine Bilirubin Neg (NEG) Urine Urobilinogen Dipstick 0.2 mg/dL (0.2 mg/dL) Urine Leukocyte Esterase Neg (NEG) Urine RBC 0 /HPF (0-2) Urine WBC 1-4 /HPF (0-4) Urine Squamous Epithelial Cells Mod /LPF Urine Bacteria Many /HPF (0-FEW) Test 03/24/17 20:25 03/24/17 20:33 03/25/17 04:50 03/25/17 07:32 Lactic Acid Level 2.4 mmol/L (0.4-2.0) Troponin I Quantitative < 0.017 ng/mL (0-0.055) < 0.017 ng/mL (0-0.055) Glucose (Fingerstick) 133 mg/dL (70-99) 125 mg/dL (70-99) White Blood Count 5.6 x10^3/uL (4.0-11.0) Red Blood Count 3.77 x10^6/uL (3.50-5.40) Hemoglobin 11.8 g/dL (12.0-15.5) Hematocrit 34.2 % (36.0-47.0) Mean Corpuscular Volume 91 fL (79-100) Mean Corpuscular Hemoglobin 31 pg (25-35) Mean Corpuscular Hemoglobin Concent 34 g/dL (31-37) Red Cell Distribution Width 16.3 % (11.5-14.5) Platelet Count 162 x10^3/uL (140-400) Neutrophils (%) (Auto) 46 % (31-73) Lymphocytes (%) (Auto) 41 % (24-48) Monocytes (%) (Auto) 8 % (0-9) Eosinophils (%) (Auto) 4 % (0-3) Basophils (%) (Auto) 1 % (0-3) Neutrophils # (Auto) 2.6 x10^3uL (1.8-7.7) Lymphocytes # (Auto) 2.3 x10^3/uL (1.0-4.8) Monocytes # (Auto) 0.5 x10^3/uL (0.0-1.1) Eosinophils # (Auto) 0.2 x10^3/uL (0.0-0.7) Basophils # (Auto) 0.0 x10^3/uL (0.0-0.2) Sodium Level 142 mmol/L (136-145) Potassium Level 4.0 mmol/L (3.5-5.1) Chloride Level 107 mmol/L (98-107) Carbon Dioxide Level 27 mmol/L (21-32) Anion Gap 8 (6-14) Blood Urea Nitrogen 13 mg/dL (7-20) Creatinine 0.8 mg/dL (0.6-1.0) Estimated GFR (Cockcroft-Gault) 71.8 Glucose Level 134 mg/dL (70-99) Calcium Level 8.5 mg/dL (8.5-10.1) Test 03/25/17 11:19 Glucose (Fingerstick) 111 mg/dL (70-99) Images EKG - sinus rhythm, IRBBB, no acute ischemic changes CXR - IMPRESSION: Trace pulmonary congestion with a suspected small left pleural effusion. Assessment/Plan 1. mild pulmonary congestion consistent with HF - await echo for lv function. 2. COPD - oxygen and bipap dependant 3. history of atrial fibrillation - request records from Dr Jhaveri 4. lactic acidosis - per PCP 5. prior DVT/PE s/p IVC filter 6. diabetes mellitus - per PCP Problems: HEIDE RIVERA APRN Mar 25, 2017 15:59
--- NOTE | 2017-03-25 16:28 | CARD ---
MR#: [id number] Date of Study: 03/25/2017 Ordering Physician: HEIDE RIVERA, Referring Physician: SCOOTER HOPKINS Tech: Cinthia Mayo DEAN APPROVED REPORT EXAM: Two-dimensional and M-mode echocardiogram with Doppler and color Doppler. Other Information Quality : Fair INDICATION Congestive Heart Failure 2D DIMENSIONS RVDd2.2 (2.9-3.5cm)Left Atrium(2D)3.7 (1.6-4.0cm) IVSd1.3 (0.7-1.1cm)Aortic Root(2D)2.9 (2.0-3.7cm) LVDd5.0 (3.9-5.9cm)LVOT Diameter2.1 (1.8-2.4cm) PWd1.1 (0.7-1.1cm)LVDs2.9 (2.5-4.0cm) FS (%) 30.0 %SV83.2 ml LVEF(%)60.0 (>50%) Aortic Valve AoV Peak Trist[place].195.2cm/sAoV VTI33.5cm AO Peak GR.15.2mmHgLVOT Peak [place].169.1cm/s LVOT VTI 31.58cmAO Mean GR.9mmHg IRENE (VMAX)3.64rk9QHY (VTI)3.33cm2 Mitral Valve MV E Vchykpzv63.4cm/sMV DECEL JNTO032by MV A Pipgyjhb953.4cm/sE/A Ratio0.8 Tricuspid Valve TR P. Tovcsdpg674pa/sRAP VWCKRYUK9dnEb TR Peak Gr.72vrQrCCPT28kiWb Pulmonary Vein S1 Jcajsqfe37.8cm/sD2 Oyupcchv68.9cm/s LEFT VENTRICLE The left ventricle is normal size. There is mild concentric left ventricular hypertrophy. The left ve ntricular systolic function is normal and the ejection fraction is within normal range. The Ejection Fraction is 60-65%. There is normal LV segmental wall motion. Transmitral Doppler flow pattern is Gra de I-abnormal relaxation pattern. ATRIA The left atrium size is normal. The right atrium size is normal. The interatrial septum is intact wit h no evidence for an atrial septal defect or patent foramen ovale as noted on 2-D or Doppler imaging. AORTIC VALVE The aortic valve is not well visualized but appears to be functioning normally by Doppler interrogati on. Doppler and Color Flow revealed no significant aortic regurgitation. There is no significant aort ic valvular stenosis. MITRAL VALVE The mitral valve is calcified but opens well. There is no evidence of mitral valve prolapse. There is no mitral valve stenosis. Doppler and Color-flow revealed trace mitral regurgitation. TRICUSPID VALVE The tricuspid valve is normal in structure and function. Doppler and Color Flow revealed physiologica l tricuspid regurgitation. The PA pressure was estimated at 22 mmHg. There is no tricuspid valve sten osis. PULMONIC VALVE The pulmonary valve is normal in structure and function. Doppler and Color Flow revealed trace pulmon ic valvular regurgitation. There is no pulmonic valvular stenosis. GREAT VESSELS The aortic root is normal in size. The ascending aorta is normal in size. The IVC is normal in size a nd collapses >50% with inspiration. PERICARDIAL EFFUSION There is no evidence of significant pericardial effusion. Critical Notification Critical Value: No <Conclusion> The left ventricular systolic function is normal and the ejection fraction is within normal range. Th e Ejection Fraction is 60-65%. There is normal LV segmental wall motion. Signed by : Jose Chawla, Electronically Approved : 03/25/2017 16:27:53
[2017-03-25] MEDS: MIRTAZAPINE 15 MG TABLET PO SCH (20:47)
[2017-03-25] MEDS: MONTELUKAST 10 MG TABLET. PO SCH (20:47)
[2017-03-25] MEDS: EZETIMIBE 10 MG TABLET PO SCH (20:47)
[2017-03-25] MEDS: ARIPiprazole 5 MG TABLET PO SCH (20:47)
[2017-03-25] MEDS: PHENYTOIN SODIUM EXTENDED 100 MG CAPSULE PO SCH (20:48)
[2017-03-25 20:57] VITALS: BP 116/61
[2017-03-25 22:30] VITALS: BP 123/70
--- NOTE | 2017-03-25 22:43 | HP ---
ADMIT DATE: 03/24/2017 HISTORY OF PRESENT ILLNESS: A 66-year-old female who came in through the Emergency Room with increased shortness of breath, apparently had been vague occasionally and forgot to bring her CPAP or BiPAP with her. The patient became increasingly confused, groggy and alike. Oxygen saturation even on 3 liters dropped down to about 88%. The patient was admitted for further evaluation. Also, the patient may be in some mild congestive heart failure, which would have been new for her. PAST MEDICAL HISTORY: The patient has a long history of oxygen dependent COPD, severe sleep apnea, morbid obesity, hepatic encephalopathy, osteoporosis, GERD, malignant melanoma of her right arm and right shoulder, pulmonary emboli, toxoplasmosis of the eyes, .cataract surgery. ALLERGIES: PENICILLIN, ERYTHROMYCIN, SULFUR AND LOVENOX. PAST SURGICAL HISTORY: The patient had hysterectomy, cholecystectomy, right knee surgery, , compressed vertebrae, right leg fracture, right arm fracture, LUISITO for [place] filter, right rib fracture, right knee replacement by Dr. Serrano, right shoulder repair. The patient has been hospitalized with pulmonary emboli. FAMILY HISTORY: Father of diabetes, coronary artery disease. Mother with diabetes and hypertension. SOCIAL HISTORY: The patient denies smoking, alcohol. Does drink some coffee. MEDICATIONS: Primidone 50 mg 2 tablets 4 times a day, Singulair 10 mg a day, Pravachol 40 mg a day, diazepam 5 mg, Dilantin 100 mg 4 capsules daily, Remeron 7.5 mg daily, metformin 500 mg daily, diclofenac 1.5% solution 40 drops applied topically, fluticasone, gabapentin 600 mg t.i.d., Fetzima 20 mg daily, Protonix 40 mg a day, Singulair ER 40 mg daily, Breo, hydrocodone p.r.n. REVIEW OF SYSTEMS: Generalized shortness of breath, marked dyspnea, cough, congestion. Denies any neurological phenomenon. Denies chest pain, abdominal pain. Denies nausea, vomiting. Main problem is marked shortness of breath and dyspnea. PHYSICAL EXAMINATION: GENERAL: A well-developed, well-nourished, overweight white female. VITAL SIGNS: Blood pressure 120/60, respiratory rate 20, pulse 103, temperature 97.8. The patient has oxygen on. HEENT: The patient's head was atraumatic, normocephalic. Eyes: PERRLA without jaundice. Mouth and throat were normal. NECK: Supple without JVD, carotid bruits or thyromegaly. LUNGS: Diminished, some rhonchi noted in the bases. CARDIOVASCULAR: Regular sinus rhythm, S1, S2, without murmur, rub, thrill, or extra heart sound. ABDOMEN: Soft, nontender, no rebounding or guarding. Positive bowel sounds, no hepatosplenomegaly was noted. EXTREMITIES: No clubbing, cyanosis, or edema. Extremity +1 pitting edema in the legs. NEUROLOGIC: Alert and oriented x 3. Speech fluent, spontaneous, appropriate. Cranial nerves 2-12 grossly intact. IMPRESSION: Acute on top of chronic diastolic heart failure, acute respiratory failure, acute exacerbation of chronic obstructive pulmonary disease, morbid obesity, pleural effusion. PLAN: The patient will be admitted, seen by Cardiology, diuresed, aggressive pulmonary toilet. Make further evaluation on her as indicated per those results. SCOOTER HOPKINS MD DR: NGOZI/elisa JOB#: [id number] / [id number]
[2017-03-26 05:20] VITALS: BP 127/70
[2017-03-26] MEDS: IPRATRPIUM/ALBUTEROL 0.5/2.5MG 3 ML NEBU. NEB SCH ×4 (05:32→19:42)
[2017-03-26 07:00] LABS: CALCIUM 8.5 mg/dL (8.5-10.1); CREATININE 0.8 mg/dL (0.6-1.0); GFR 71.8; POTASSIUM 3.7 mmol/L (3.5-5.1)
[2017-03-26 07:42] LABS: BASO % 1 % (0-3); EOS # 0.2 x10^3/uL (0.0-0.7); EOS % 4 % (0-3); HEMATOCRIT 34.9 % (36.0-47.0); LYMPH % 43 % (24-48); MEAN CORPUSCULAR HEMOGLOBIN 31 pg (25-35); MEAN CORPUSCULAR HGB CONC 35 g/dL (31-37); MEAN CORPUSCULAR VOLUME 91 fL (79-100); MONO # 0.4 x10^3/uL (0.0-1.1); MONO % 8 % (0-9); NEUT % 44 % (31-73); PLATELET COUNT 153 x10^3/uL (140-400); RED BLOOD COUNT 3.85 x10^6/uL (3.50-5.40); WHITE BLOOD COUNT 4.6 x10^3/uL (4.0-11.0)
[2017-03-26] MEDS: PANTOPRAZOLE 40 MG TABLET. PO SCH (07:59)
[2017-03-26] MEDS: metFORMIN 500 MG TABLET PO SCH ×2 (07:59→17:06)
--- NOTE | 2017-03-26 09:10 | PDOC ---
PROGRESS NOTES Assessment 1. mild diastolic heart failure - continue lasix. Avoid sodium in diet. Normal LVEF and wall motion by echo. 2. COPD - oxygen and bipap dependant - mgmt per PCP 3. history of atrial fibrillation - request records from Dr Jhaveri pending. 4. lactic acidosis - per PCP 5. prior DVT/PE s/p IVC filter 6. diabetes mellitus - per PCP Problems: Subjective feeling much better, no chest pain, breathing easy, more alert Objective echo - The left ventricular systolic function is normal and the ejection fraction is within normal range. The Ejection Fraction is 60-65%. There is normal LV segmental wall motion. Vital Signs Date Time Temp Pulse Resp B/P (MAP) Pulse Ox O2 Delivery O2 Flow Rate FiO2 03/26/17 05:20 98.2 94 22 127/70 (89) 93 BiPAP/CPAP 2.0 Intake and Output 03/26/17 07:00 Intake Total 3258.02 ml Output Total 4200 ml Balance -941.98 ml Intake Oral 1000 ml IV Total 2258.02 ml Output Urine Total 4200 ml # Bowel Movements 2 Abdomen: Normal bowel sounds, Soft, No tenderness Heart: Regular rate, Normal S1, Normal S2 Extremities: No cyanosis, Normal pulses General: Alert, Oriented X3, Cooperative, No acute distress Lungs: Clear to auscultation, Normal air movement Neuro: Normal speech Psych/Mental Status: Mental status NL, Mood NL Review of Relevant I have reviewed the following items christina (where applicable) has been applied. Labs Laboratory Tests Test 03/24/17 14:00 03/24/17 14:15 03/24/17 15:40 03/24/17 16:23 Blood Gas pH 7.38 (7.35-7.45) Blood Gas PCO2 47 mmHg (35-45) Blood Gas PO2 110 mmHg (80-100) Blood Gas HCO3 28 mmol/L (22-26) Arterial Bld O2 Saturation (Calc) 98 % (92-99) FiO2 28 % White Blood Count 6.6 x10^3/uL (4.0-11.0) Red Blood Count 4.45 x10^6/uL (3.50-5.40) Hemoglobin 13.7 g/dL (12.0-15.5) Hematocrit 40.3 % (36.0-47.0) Mean Corpuscular Volume 91 fL (79-100) Mean Corpuscular Hemoglobin 31 pg (25-35) Mean Corpuscular Hemoglobin Concent 34 g/dL (31-37) Red Cell Distribution Width 15.7 % (11.5-14.5) Platelet Count 201 x10^3/uL (140-400) Neutrophils (%) (Auto) 47 % (31-73) Lymphocytes (%) (Auto) 38 % (24-48) Monocytes (%) (Auto) 10 % (0-9) Eosinophils (%) (Auto) 4 % (0-3) Basophils (%) (Auto) 1 % (0-3) Neutrophils # (Auto) 3.1 x10^3uL (1.8-7.7) Lymphocytes # (Auto) 2.5 x10^3/uL (1.0-4.8) Monocytes # (Auto) 0.7 x10^3/uL (0.0-1.1) Eosinophils # (Auto) 0.3 x10^3/uL (0.0-0.7) Basophils # (Auto) 0.1 x10^3/uL (0.0-0.2) D-Dimer (Nicole) < 0.19 mg/L (0.00-0.50) Sodium Level 143 mmol/L (136-145) Potassium Level 3.9 mmol/L (3.5-5.1) Chloride Level 104 mmol/L (98-107) Carbon Dioxide Level 26 mmol/L (21-32) Anion Gap 13 (6-14) Blood Urea Nitrogen 12 mg/dL (7-20) Creatinine 0.7 mg/dL (0.6-1.0) Estimated GFR (Cockcroft-Gault) 83.7 BUN/Creatinine Ratio 17 (6-20) Glucose Level 145 mg/dL (70-99) Lactic Acid Level 3.5 mmol/L (0.4-2.0) Calcium Level 8.9 mg/dL (8.5-10.1) Total Bilirubin 0.2 mg/dL (0.2-1.0) Aspartate Amino Transf (AST/SGOT) 26 U/L (15-37) Alanine Aminotransferase (ALT/SGPT) 27 U/L (14-59) Alkaline Phosphatase 185 U/L (46-116) Creatine Kinase 79 U/L (26-192) Troponin I Quantitative < 0.017 ng/mL (0-0.055) FM-Xhe-O-Type Natriuretic Peptide 8 pg/mL (0-124) Total Protein 8.0 g/dL (6.4-8.2) Albumin 3.6 g/dL (3.4-5.0) Albumin/Globulin Ratio 0.8 (1.0-1.7) Influenza Type A (Rapid) Negative (NEGATIVE) Influenza Type B (Rapid) Negative (NEGATIVE) Urine Opiates Screen Neg (NEG) Urine Methadone Screen Neg (NEG) Urine Barbiturates Pos (NEG) Urine Phencyclidine Screen Neg (NEG) Urine Amphetamine/Methamphetamine Neg (NEG) Urine Benzodiazepines Screen Pos (NEG) Urine Cocaine Screen Neg (NEG) Urine Cannabinoids Screen Neg (NEG) Urine Ethyl Alcohol Neg (NEG) Urine Collection Type U cath Urine Color Yellow Urine Clarity Hazy Urine pH 5.5 Urine Specific [place] 1.015 Urine Protein Neg (NEG-TRACE) Urine Glucose (UA) 100 mg/dL (NEG) Urine Ketones (Stick) Neg mg/dL (NEG) Urine Blood Trace (NEG) Urine Nitrite Neg (NEG) Urine Bilirubin Neg (NEG) Urine Urobilinogen Dipstick 0.2 mg/dL (0.2 mg/dL) Urine Leukocyte Esterase Neg (NEG) Urine RBC 0 /HPF (0-2) Urine WBC 1-4 /HPF (0-4) Urine Squamous Epithelial Cells Mod /LPF Urine Bacteria Many /HPF (0-FEW) Test 03/24/17 20:25 03/24/17 20:33 03/25/17 04:50 03/25/17 07:32 Lactic Acid Level 2.4 mmol/L (0.4-2.0) Troponin I Quantitative < 0.017 ng/mL (0-0.055) < 0.017 ng/mL (0-0.055) Glucose (Fingerstick) 133 mg/dL (70-99) 125 mg/dL (70-99) White Blood Count 5.6 x10^3/uL (4.0-11.0) Red Blood Count 3.77 x10^6/uL (3.50-5.40) Hemoglobin 11.8 g/dL (12.0-15.5) Hematocrit 34.2 % (36.0-47.0) Mean Corpuscular Volume 91 fL (79-100) Mean Corpuscular Hemoglobin 31 pg (25-35) Mean Corpuscular Hemoglobin Concent 34 g/dL (31-37) Red Cell Distribution Width 16.3 % (11.5-14.5) Platelet Count 162 x10^3/uL (140-400) Neutrophils (%) (Auto) 46 % (31-73) Lymphocytes (%) (Auto) 41 % (24-48) Monocytes (%) (Auto) 8 % (0-9) Eosinophils (%) (Auto) 4 % (0-3) Basophils (%) (Auto) 1 % (0-3) Neutrophils # (Auto) 2.6 x10^3uL (1.8-7.7) Lymphocytes # (Auto) 2.3 x10^3/uL (1.0-4.8) Monocytes # (Auto) 0.5 x10^3/uL (0.0-1.1) Eosinophils # (Auto) 0.2 x10^3/uL (0.0-0.7) Basophils # (Auto) 0.0 x10^3/uL (0.0-0.2) Sodium Level 142 mmol/L (136-145) Potassium Level 4.0 mmol/L (3.5-5.1) Chloride Level 107 mmol/L (98-107) Carbon Dioxide Level 27 mmol/L (21-32) Anion Gap 8 (6-14) Blood Urea Nitrogen 13 mg/dL (7-20) Creatinine 0.8 mg/dL (0.6-1.0) Estimated GFR (Cockcroft-Gault) 71.8 Glucose Level 134 mg/dL (70-99) Calcium Level 8.5 mg/dL (8.5-10.1) Test 03/25/17 11:19 03/25/17 16:22 03/25/17 19:53 03/26/17 06:24 Glucose (Fingerstick) 111 mg/dL (70-99) 88 mg/dL (70-99) 108 mg/dL (70-99) White Blood Count 4.6 x10^3/uL (4.0-11.0) Red Blood Count 3.85 x10^6/uL (3.50-5.40) Hemoglobin 12.0 g/dL (12.0-15.5) Hematocrit 34.9 % (36.0-47.0) Mean Corpuscular Volume 91 fL (79-100) Mean Corpuscular Hemoglobin 31 pg (25-35) Mean Corpuscular Hemoglobin Concent 35 g/dL (31-37) Red Cell Distribution Width 16.0 % (11.5-14.5) Platelet Count 153 x10^3/uL (140-400) Neutrophils (%) (Auto) 44 % (31-73) Lymphocytes (%) (Auto) 43 % (24-48) Monocytes (%) (Auto) 8 % (0-9) Eosinophils (%) (Auto) 4 % (0-3) Basophils (%) (Auto) 1 % (0-3) Neutrophils # (Auto) 2.0 x10^3uL (1.8-7.7) Lymphocytes # (Auto) 2.0 x10^3/uL (1.0-4.8) Monocytes # (Auto) 0.4 x10^3/uL (0.0-1.1) Eosinophils # (Auto) 0.2 x10^3/uL (0.0-0.7) Basophils # (Auto) 0.0 x10^3/uL (0.0-0.2) Test 03/26/17 06:59 03/26/17 07:17 Sodium Level 140 mmol/L (136-145) Potassium Level 3.7 mmol/L (3.5-5.1) Chloride Level 102 mmol/L (98-107) Carbon Dioxide Level 27 mmol/L (21-32) Anion Gap 11 (6-14) Blood Urea Nitrogen 13 mg/dL (7-20) Creatinine 0.8 mg/dL (0.6-1.0) Estimated GFR (Cockcroft-Gault) 71.8 Glucose Level 146 mg/dL (70-99) Calcium Level 8.5 mg/dL (8.5-10.1) Glucose (Fingerstick) 125 mg/dL (70-99) Medications Current Medications Albuterol/ Ipratropium (Duoneb) 3 ml STK-MED ONCE .ROUTE ; Start 03/24/17 at 13: 59; Stop 03/24/17 at 14:00; Status DC Sodium Chloride 1,000 ml @ 1,000 mls/hr Q1H IV Last administered on 03/24/17at 15:26; Start 03/24/17 at 15:26; Stop 03/24/17 at 16:25; Status DC Sodium Chloride 1,000 ml @ 100 mls/hr Q10H IV Last administered on 03/25/17at 05:30; Start 03/24/17 at 17:18; Stop 03/25/17 at 15:38; Status DC Acetaminophen (Tylenol) 650 mg PRN Q4HRS PRN PO FEVER; Start 03/24/17 at 17:30 ; Stop 03/25/17 at 17:29; Status DC Albuterol/ Ipratropium (Duoneb) 3 ml RTQID NEB Last administered on 03/24/17at 21:36; Start 03/24/17 at 20:00; Stop 03/24/17 at 21:54; Status DC Albuterol Sulfate (Ventolin) 2.5 mg PRN Q6HRS PRN NEB SHORTNESS OF BREATH; Start 03/24/17 at 21:30 Albuterol Sulfate (Ventolin Hfa) 1 puff PRN QID PRN IH FOR ASTHMA; Start at 21:30; Status UNV Aripiprazole (Abilify) 5 mg QHS PO Last administered on 03/25/17at 20:47; Start 03/24/17 at 22:00 Aspirin (Children'S Aspirin) 81 mg DAILY PO Last administered on 03/25/17at 08: 36; Start 03/25/17 at 09:00 Budesonide (Pulmicort) 1 mg QID NEB ; Start 03/25/17 at 09:00; Status UNV Diazepam (Valium) 2.5 mg TIDPC PO Last administered on 03/25/17at 17:25; Start 03/25/17 at 08:30 Diazepam (Valium) 7.5 mg QHS PO Last administered on 03/25/17at 20:47; Start at 22:00 EZETIMIBE (Zetia) 10 mg QHS PO Last administered on 03/25/17at 20:47; Start at 22:00 Fentanyl (Duragesic 25mcg/ Hr) 1 patch Q3DAYS TD ; Start 03/27/17 at 09:00 Fluticasone Propionate (Flonase) 2 spray PRN DAILY PRN NS DRYNESS; Start at 21:30 Furosemide (Lasix) 40 mg BID94 PO Last administered on 03/25/17at 16:33; Start 03/25/17 at 09:00 Acetaminophen/ Hydrocodone Bitart (Lortab 7.5/325) 1 tab PRN Q6HRS PRN PO SEVERE PAIN; Start 03/24/17 at 21:30 Metformin HCl (Glucophage) 500 mg BIDWMEALS PO Last administered on 03/26/17 07:59; Start 03/25/17 at 08:00 Montelukast Sodium (Singulair) 10 mg QHS PO Last administered on 03/25/17 20: 47; Start 03/24/17 at 22:00 Pantoprazole Sodium (Protonix) 40 mg DAILYAC PO Last administered on 03/26/17 07:59; Start 03/25/17 at 07:30 Phenytoin Sodium (Dilantin) 400 mg QHS PO Last administered on 03/25/17 20:48 ; Start 03/24/17 at 22:00 Potassium Chloride (Klor-Con) 20 meq BID PO Last administered on 03/25/17 20: 48; Start 03/24/17 at 22:00 Prednisone (Prednisone) 5 mg DAILY PO Last administered on 03/25/17at 08:37; Start 03/25/17 at 09:00 Primidone (Mysoline) 100 mg QID PO Last administered on 03/25/17 20:49; Start 03/25/17 at 09:00 Azelastine HCl (Astelin) 2 spray BID NS Last administered on 03/25/17at 20:46; Start 03/25/17 at 09:00 Non-Formulary Medication 1 puff DAILY IH ; Start 03/25/17 at 09:00; Status UNV Gabapentin (Neurontin) 600 mg TID PO Last administered on 03/25/17 20:48; Start 03/24/17 at 22:00 Non-Formulary Medication 80 mg DAILY PO Last administered on 03/25/17at 12:16; Start 03/25/17 at 12:00 Mirtazapine (Remeron) 22.5 mg QHS PO Last administered on 1/22/18at 20:47; Start 03/24/17 at 22:00 Non-Formulary Medication 62.5 mcg DAILY IH ; Start 03/25/17 at 09:00; Status UNV Albuterol/ Ipratropium (Duoneb) 3 ml RTQID NEB Last administered on 03/26/17at 05:32; Start 03/25/17 at 08:00 Budesonide (Pulmicort) 0.5 mg RTBID NEB Last administered on 03/25/17at 22:19; Start 03/25/17 at 08:00 Active Scripts Active Prednisone 5 Mg Tablet 5 Mg PO DAILY 5 tablets for 3 days, then decrease by 1 tablet every 3rd day until gone Mysoline (Primidone) 50 Mg Tablet 100 Mg PO QID 30 Days Metformin Hcl 500 Mg Tablet 500 Mg PO BIDWMEALS 90 Days Albuterol Sulfate Neb Soln (Albuterol Sulfate) 2.5 Mg/3 Ml Vial.neb 2.5 Mg NEB PRN Q6HRS PRN 30 Days Reported FENTANYL 25mcg/hr (Fentanyl) 1 Each Patch.td72 1 Patch TP Q3DAYS LAST DOSE GIVEN: DATE: YESTER TIME: AM NEXT DOSE DUE: DATE: SATURDAY TIME: AM Pulmicort (Budesonide) 0.5 Mg/2 Ml Ampul.neb 1 Vial NEB QID LAST DOSE GIVEN: DATE: TODAY TIME: AM NEXT DOSE DUE: DATE: TODAY TIME: PM Astepro (Azelastine Hcl) 205.5 Mcg/0.137 Ml [place].pump 2 Spr NS BID LAST DOSE GIVEN: DATE: TODAY TIME: AM NEXT DOSE DUE: DATE: TODAY TIME: PM Fluticasone Propionate Nasal [place] (Fluticasone Propionate) 16 Gm [place].susp 2 Spr NS DAILY PRN LAST DOSE GIVEN: NOT GIVEN THIS ADMISSION NEXT DOSE DUE: DATE: TODAY TIME: IF NEEDED Ventolin Hfa Inhaler (Albuterol Sulfate) 18 Gm Hfa.aer.ad 1 Puff IH PRN QID PRN LAST DOSE GIVEN: NOT GIVEN THIS ADMISSION NEXT DOSE DUE: DATE: TODAY TIME: IF NEEDED Incruse Ellipta (Umeclidinium [place]) 62.5 Mcg Blst.w.dev 62.5 Mcg IH DAILY LAST DOSE GIVEN: NOT GIVEN THIS ADMISSION NEXT DOSE DUE: DATE: RESTART TOMORROW TIME: AM Breo Ellipta 100-25 Mcg Inh (Fluticasone/Vilanterol) 1 Each Aer.pow.ba 1 Puff IH DAILY LAST DOSE GIVEN: NOT GIVEN THIS ADMISSION NEXT DOSE DUE: DATE: TOMORR TIME: AM Fetzima (Levomilnacipran Hydrochloride) 80 Mg Cap.sa.24h 80 Mg PO DAILY LAST DOSE GIVEN: DATE: TIME: AM NEXT DOSE DUE: DATE: TIME: AM Remeron (Mirtazapine) 45 Mg Tablet 0.5 Tab PO QHS LAST DOSE GIVEN: DATE: YESTER TIME: AT BEDTIME NEXT DOSE DUE: DATE: TODAY TIME: AT BEDTIME Furosemide 80 Mg Tablet 40 Mg PO BID LAST DOSE GIVEN: DATE: TODAY TIME: AM NEXT DOSE DUE: DATE: TIME: AM Abilify (Aripiprazole) 5 Mg Tablet 1 Tab PO QHS LAST DOSE GIVEN: DATE: YES TIME: AT BEDTIME NEXT DOSE DUE: DATE: TIME: AT BEDTIME Hydrocodone-Apap 7.5-325 (Hydrocodone Bit/Acetaminophen) 1 Each Tablet 1-2 Tab PO PRN Q6HRS PRN LAST DOSE GIVEN: NOT GIVEN TODAY NEXT DOSE DUE: DATE: TIME: IF NEEDED TIME: IF AND WHEN NEEDED Gralise (Gabapentin) 600 Mg Tab.er.24h 1 Tab PO TID LAST DOSE GIVEN: DATE: TIME: AM NEXT DOSE DUE: DATE: TIME: AFTERNOON Klor-Con M20 (Potassium Chloride) 20 Meq Tab.er.prt 1 Tab PO BID LAST DOSE GIVEN: DATE: TIME: AM NEXT DOSE DUE: DATE: TODAY TIME: PM Montelukast Sodium Tablet (Montelukast Sodium) 10 Mg Tablet 10 Mg PO QHS LAST DOSE GIVEN: DATE: YESTER TIME: AT BEDTIME NEXT DOSE DUE: DATE: TODAY TIME: AT BEDTIME Protonix (Pantoprazole Sodium) 40 Mg Tablet.dr 40 Mg PO DAILYAC LAST DOSE GIVEN: DATE: TODAY TIME: BEFORE BREAKFAST NEXT DOSE DUE: DATE: TOMORR TIME: BEFORE BREAKFAST Dilantin (Phenytoin Sodium Extended) 100 Mg Capsule 400 Mg PO QHS LAST DOSE GIVEN: DATE: YESTER TIME: AT BEDTIME NEXT DOSE DUE: DATE: TIME: AT BEDTIME Aspirin 81 Mg Tab.chew 81 Mg PO DAILY LAST DOSE GIVEN: DATE: TODAY TIME: AM NEXT DOSE DUE: DATE: TOMORROW TIME: AM Zetia (Ezetimibe) 10 Mg Tablet 10 Mg PO QHS LAST DOSE GIVEN: DATE: YESTERDAY TIME: AT BEDTIME NEXT DOSE DUE: DATE: TODAY TIME: AT BEDTIME Diazepam 5 Mg Tablet 7.5 Mg PO QHS LAST DOSE GIVEN: DATE: YESTERDAY TIME: AT BEDTIME NEXT DOSE DUE: DATE: TODAY TIME: AT BEDTIME Diazepam 5 Mg Tablet 2.5 Mg PO TIDPC LAST DOSE GIVEN: DATE: TODAY TIME: AM NEXT DOSE DUE: DATE: TODAY TIME: AFTERNOON Vitals/I & O Vital Sign - Last 24 Hours 03/25/17 03/25/17 03/25/17 03/25/17 10:31 11:29 11:30 17:46 Temp 98.0 Pulse 91 Resp 20 B/P (MAP) 125/87 (100) Pulse Ox 96 97 97 100 O2 Delivery Nasal Cannula Nasal Cannula Nasal Cannula Nasal Cannula O2 Flow Rate 2.0 2.0 2.0 2.0 03/25/17 03/25/17 03/25/17 03/25/17 19:50 20:57 21:25 21:30 Temp 98.2 Pulse 109 Resp 18 B/P (MAP) 116/61 (79) Pulse Ox 95 97 97 O2 Delivery Nasal Cannula Nasal Cannula Home CPAP Home CPAP O2 Flow Rate 2.0 2.0 3.0 3.0 03/25/17 03/26/17 03/26/17 22:30 05:09 05:20 Temp 98.5 98.2 Pulse 110 94 Resp 20 22 B/P (MAP) 123/70 (87) 127/70 (89) Pulse Ox 92 96 93 O2 Delivery BiPAP/CPAP Home CPAP BiPAP/CPAP O2 Flow Rate 2.0 3.0 2.0 Intake and Output 03/25/17 03/25/17 03/26/17 15:00 23:00 07:00 Intake Total 260 ml 2498.02 ml 500 ml Output Total 2650 ml 850 ml 700 ml Balance -2390 ml 1648.02 ml -200 ml HEIDE RIVERA APRN Mar 26, 2017 09:10
[2017-03-26] MEDS: BUDESONIDE 0.5 MG/2 ML NEBU NEB SCH ×2 (09:45→19:42)
[2017-03-26] MEDS: diazePAM 5 MG TABLET PO SCH ×4 (10:16→21:06)
[2017-03-26] MEDS: AZELASTINE NASAL SPRAY 30ML BOTTLE. NS SCH ×2 (10:18→21:04)
[2017-03-26] MEDS: POTASSIUM CHLORIDE 20 MEQ TABLET.ER. PO SCH ×2 (10:20→21:05)
[2017-03-26] MEDS: ASPIRIN 81 MG TAB.CHEW PO SCH (10:20)
[2017-03-26] MEDS: FUROSEMIDE 40 MG TABLET PO SCH ×2 (10:21→17:06)
[2017-03-26] MEDS: PRIMIDONE 50 MG TABLET PO SCH ×4 (10:22→21:06)
[2017-03-26] MEDS: GABAPENTIN 300 MG CAPSULE. PO SCH ×3 (10:23→21:05)
[2017-03-26] MEDS: predniSONE 5 MG TABLET PO SCH (10:23)
[2017-03-26] MEDS: LEVOMILNACIPRAN HYDROCHLORIDE 80 MG PO SCH (10:26)
[2017-03-26 11:18] VITALS: BP 125/75
--- NOTE | 2017-03-26 12:19 | RAD ---
2 view chest 03/26/2017 Clinical indication: CHF, short of air. Comparison: Chest 03/24/2017 Findings: Mild elevation of the right hemidiaphragm. Cardiac and mediastinal silhouettes are unremarkable. No pleural effusion, pneumothorax or focal consolidation. Impression: 1. No acute cardiopulmonary abnormality. 2. Stable mild elevation of the right hemidiaphragm.
[2017-03-26 15:18] VITALS: BP 142/84
[2017-03-26 20:45] VITALS: BP 122/71
[2017-03-26] MEDS: EZETIMIBE 10 MG TABLET PO SCH (21:04)
[2017-03-26] MEDS: MONTELUKAST 10 MG TABLET. PO SCH (21:05)
[2017-03-26] MEDS: ARIPiprazole 5 MG TABLET PO SCH (21:06)
[2017-03-26] MEDS: MIRTAZAPINE 15 MG TABLET PO SCH (21:06)
[2017-03-26] MEDS: PHENYTOIN SODIUM EXTENDED 100 MG CAPSULE PO SCH (21:06)
[2017-03-26 23:05] VITALS: BP 118/67
--- NOTE | 2017-03-26 23:11 | PN ---
DATE: SUBJECTIVE: The patient is in with shortness of breath, dyspnea, mild congestive heart failure, new onset. The patient says she is feeling a little bit better, still recuperating overall. OBJECTIVE: VITAL SIGNS: Blood pressure 120/70, respiratory rate 20, pulse 94, afebrile, pulse has been as high as 110. GENERAL: The patient is alert and oriented with oxygen, of course. LUNGS: Diminished, but clear than they have been. CARDIOVASCULAR: Regular sinus rhythm, S1, S2. 1/6 systolic ejection murmur. ABDOMEN: Soft, nontender, protuberant. EXTREMITIES: No clubbing or cyanosis. NEUROLOGIC: Intact. LABORATORY DATA: Lactic acid has come down into normal range. Hemoglobin, hematocrit basically stable as is her blood gases. Sodium, potassium, BUN and creatinine were normal. Sugar slightly elevated at 145. IMPRESSION: Mild acute diastolic heart failure, chronic obstructive pulmonary disease, history of atrial fibrillation, possible sepsis, type 2 diabetes. PLAN: The patient will be continued to be monitored carefully, make further evaluation on her as indicated and continue diuresis. SCOOTER HOPKINS MD DR: NGOZI/elisa JOB#: [id number] / [id number]
[2017-03-27 01:12] LABS: HEMOGLOBIN A1C 6.4 % (4.8-5.6)
[2017-03-27 05:25] VITALS: BP 145/81
[2017-03-27] MEDS: IPRATRPIUM/ALBUTEROL 0.5/2.5MG 3 ML NEBU. NEB SCH ×2 (05:39→10:14)
[2017-03-27 06:57] LABS: BASO % 1 % (0-3); CREATININE 0.8 mg/dL (0.6-1.0); EOS # 0.2 x10^3/uL (0.0-0.7); EOS % 4 % (0-3); GFR 71.8; HEMATOCRIT 34.7 % (36.0-47.0); LYMPH # 2.4 x10^3/uL (1.0-4.8); LYMPH % 47 % (24-48); MEAN CORPUSCULAR HEMOGLOBIN 31 pg (25-35); MEAN CORPUSCULAR HGB CONC 35 g/dL (31-37); MEAN CORPUSCULAR VOLUME 91 fL (79-100); MONO # 0.4 x10^3/uL (0.0-1.1); MONO % 8 % (0-9); NEUT # 2.1 x10^3uL (1.8-7.7); NEUT % 41 % (31-73); PLATELET COUNT 167 x10^3/uL (140-400); POTASSIUM 3.4 mmol/L (3.5-5.1); RED BLOOD COUNT 3.82 x10^6/uL (3.50-5.40); RED CELL DISTRIBUTION WIDTH 15.9 % (11.5-14.5); WHITE BLOOD COUNT 5.2 x10^3/uL (4.0-11.0)
[2017-03-27] MEDS: metFORMIN 500 MG TABLET PO SCH (08:29)
[2017-03-27] MEDS: GABAPENTIN 300 MG CAPSULE. PO SCH (08:29)
[2017-03-27] MEDS: PANTOPRAZOLE 40 MG TABLET. PO SCH (08:29)
[2017-03-27] MEDS: ASPIRIN 81 MG TAB.CHEW PO SCH (08:29)
[2017-03-27] MEDS: diazePAM 5 MG TABLET PO SCH (08:29)
[2017-03-27] MEDS: predniSONE 5 MG TABLET PO SCH (08:30)
[2017-03-27] MEDS: POTASSIUM CHLORIDE 20 MEQ TABLET.ER. PO SCH (08:30)
[2017-03-27] MEDS: FUROSEMIDE 40 MG TABLET PO SCH (08:30)
[2017-03-27] MEDS: AZELASTINE NASAL SPRAY 30ML BOTTLE. NS SCH (08:31)
[2017-03-27] MEDS: LEVOMILNACIPRAN HYDROCHLORIDE 80 MG PO SCH (08:31)
[2017-03-27] MEDS: PRIMIDONE 50 MG TABLET PO SCH (08:32)
[2017-03-27] MEDS ORDERED: fentaNYL 25MCG/HR 1 PATCH PATCH TD SCH (09:00)
[2017-03-27] MEDS: BUDESONIDE 0.5 MG/2 ML NEBU NEB SCH (10:14)
[2017-03-27] MEDS ORDERED: PRED5TAB PO (10:23)
--- NOTE | 2017-03-27 14:41 | PDOC ---
PROGRESS NOTES Assessment 1. mild diastolic heart failure - resolved. Normal LVEF by echo. 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 2. COPD - oxygen and bipap dependant - mgmt per PCP 3. history of atrial fibrillation - request records from Dr Jhaveri pending. No arrhythmias noted during hospital stay. 4. lactic acidosis - per PCP 5. prior DVT/PE s/p IVC filter 6. diabetes mellitus - per PCP Problems: Subjective patient seen after breakfast, up in chair, visiting with . Walked to and from shower this am without problems. no chest pain, no palpitations. no dyspnea. Objective Vital Signs Date Time Temp Pulse Resp B/P (MAP) Pulse Ox O2 Delivery O2 Flow Rate FiO2 03/27/17 10:15 99 Nasal Cannula 3.0 03/27/17 05:25 97.3 92 24 145/81 (102) Intake and Output 03/27/17 07:00 Intake Total 1020 ml Output Total 600 ml Balance 420 ml Intake Oral 1020 ml Output Urine Total 600 ml # Voids 1 # Bowel Movements 2 Abdomen: Normal bowel sounds, Soft, No tenderness Heart: Regular rate, Normal S1, Normal S2 Extremities: No cyanosis, Normal pulses General: Alert, Oriented X3, Cooperative, No acute distress HEENT: Atraumatic, EOMI Lungs: Other (decreased bases without crackles, rhonchi or wheezing) Neuro: Normal speech, Strength at 5/5 X4 ext Psych/Mental Status: Mental status NL, Mood NL Review of Relevant I have reviewed the following items christina (where applicable) has been applied. Labs Laboratory Tests Test 03/25/17 16:22 03/25/17 19:53 03/26/17 06:24 03/26/17 06:59 Glucose (Fingerstick) 88 mg/dL (70-99) 108 mg/dL (70-99) White Blood Count 4.6 x10^3/uL (4.0-11.0) Red Blood Count 3.85 x10^6/uL (3.50-5.40) Hemoglobin 12.0 g/dL (12.0-15.5) Hematocrit 34.9 % (36.0-47.0) Mean Corpuscular Volume 91 fL (79-100) Mean Corpuscular Hemoglobin 31 pg (25-35) Mean Corpuscular Hemoglobin Concent 35 g/dL (31-37) Red Cell Distribution Width 16.0 % (11.5-14.5) Platelet Count 153 x10^3/uL (140-400) Neutrophils (%) (Auto) 44 % (31-73) Lymphocytes (%) (Auto) 43 % (24-48) Monocytes (%) (Auto) 8 % (0-9) Eosinophils (%) (Auto) 4 % (0-3) Basophils (%) (Auto) 1 % (0-3) Neutrophils # (Auto) 2.0 x10^3uL (1.8-7.7) Lymphocytes # (Auto) 2.0 x10^3/uL (1.0-4.8) Monocytes # (Auto) 0.4 x10^3/uL (0.0-1.1) Eosinophils # (Auto) 0.2 x10^3/uL (0.0-0.7) Basophils # (Auto) 0.0 x10^3/uL (0.0-0.2) Sodium Level 140 mmol/L (136-145) Potassium Level 3.7 mmol/L (3.5-5.1) Chloride Level 102 mmol/L (98-107) Carbon Dioxide Level 27 mmol/L (21-32) Anion Gap 11 (6-14) Blood Urea Nitrogen 13 mg/dL (7-20) Creatinine 0.8 mg/dL (0.6-1.0) Estimated GFR (Cockcroft-Gault) 71.8 Glucose Level 146 mg/dL (70-99) Hemoglobin A1c 6.4 % (4.8-5.6) Calcium Level 8.5 mg/dL (8.5-10.1) Test 03/26/17 07:17 03/26/17 11:49 03/26/17 14:41 03/26/17 16:26 Glucose (Fingerstick) 125 mg/dL (70-99) 92 mg/dL (70-99) 162 mg/dL (70-99) 85 mg/dL (70-99) Test 03/26/17 19:13 03/27/17 06:15 03/27/17 07:36 03/27/17 11:14 Glucose (Fingerstick) 107 mg/dL (70-99) 115 mg/dL (70-99) 146 mg/dL (70-99) White Blood Count 5.2 x10^3/uL (4.0-11.0) Red Blood Count 3.82 x10^6/uL (3.50-5.40) Hemoglobin 12.0 g/dL (12.0-15.5) Hematocrit 34.7 % (36.0-47.0) Mean Corpuscular Volume 91 fL (79-100) Mean Corpuscular Hemoglobin 31 pg (25-35) Mean Corpuscular Hemoglobin Concent 35 g/dL (31-37) Red Cell Distribution Width 15.9 % (11.5-14.5) Platelet Count 167 x10^3/uL (140-400) Neutrophils (%) (Auto) 41 % (31-73) Lymphocytes (%) (Auto) 47 % (24-48) Monocytes (%) (Auto) 8 % (0-9) Eosinophils (%) (Auto) 4 % (0-3) Basophils (%) (Auto) 1 % (0-3) Neutrophils # (Auto) 2.1 x10^3uL (1.8-7.7) Lymphocytes # (Auto) 2.4 x10^3/uL (1.0-4.8) Monocytes # (Auto) 0.4 x10^3/uL (0.0-1.1) Eosinophils # (Auto) 0.2 x10^3/uL (0.0-0.7) Basophils # (Auto) 0.0 x10^3/uL (0.0-0.2) Sodium Level 143 mmol/L (136-145) Potassium Level 3.4 mmol/L (3.5-5.1) Chloride Level 102 mmol/L (98-107) Carbon Dioxide Level 30 mmol/L (21-32) Anion Gap 11 (6-14) Blood Urea Nitrogen 15 mg/dL (7-20) Creatinine 0.8 mg/dL (0.6-1.0) Estimated GFR (Cockcroft-Gault) 71.8 Glucose Level 133 mg/dL (70-99) Calcium Level 9.0 mg/dL (8.5-10.1) Microbiology 03/25/17 Urine Culture - Preliminary, Resulted 03/25/17 Urine Culture Result 1 (ESTEFANI) - Preliminary, Resulted Medications Current Medications Albuterol/ Ipratropium (Duoneb) 3 ml STK-MED ONCE .ROUTE ; Start 03/24/17 at 13: 59; Stop 03/24/17 at 14:00; Status DC Sodium Chloride 1,000 ml @ 1,000 mls/hr Q1H IV Last administered on 03/24/17at 15:26; Start 03/24/17 at 15:26; Stop 03/24/17 at 16:25; Status DC Sodium Chloride 1,000 ml @ 100 mls/hr Q10H IV Last administered on 03/25/17at 05:30; Start 03/24/17 at 17:18; Stop 03/25/17 at 15:38; Status DC Acetaminophen (Tylenol) 650 mg PRN Q4HRS PRN PO FEVER; Start 03/24/17 at 17:30 ; Stop 03/25/17 at 17:29; Status DC Albuterol/ Ipratropium (Duoneb) 3 ml RTQID NEB Last administered on 03/24/17at 21:36; Start 03/24/17 at 20:00; Stop 03/24/17 at 21:54; Status DC Albuterol Sulfate (Ventolin) 2.5 mg PRN Q6HRS PRN NEB SHORTNESS OF BREATH; Start 03/24/17 at 21:30; Stop 03/27/17 at 12:28; Status DC Albuterol Sulfate (Ventolin Hfa) 1 puff PRN QID PRN IH FOR ASTHMA; Start at 21:30; Status UNV Aripiprazole (Abilify) 5 mg QHS PO Last administered on 03/26/17at 21:06; Start 03/24/17 at 22:00; Stop 03/27/17 at 12:28; Status DC Aspirin (Children'S Aspirin) 81 mg DAILY PO Last administered on 03/27/17at 08: 29; Start 03/25/17 at 09:00; Stop 03/27/17 at 12:28; Status DC Budesonide (Pulmicort) 1 mg QID NEB ; Start 03/25/17 at 09:00; Status UNV Diazepam (Valium) 2.5 mg TIDPC PO Last administered on 03/27/17at 08:29; Start 03/25/17 at 08:30; Stop 03/27/17 at 12:28; Status DC Diazepam (Valium) 7.5 mg QHS PO Last administered on 03/26/17at 21:06; Start at 22:00; Stop 03/27/17 at 12:28; Status DC EZETIMIBE (Zetia) 10 mg QHS PO Last administered on 03/26/17at 21:04; Start at 22:00; Stop 03/27/17 at 12:28; Status DC Fentanyl (Duragesic 25mcg/ Hr) 1 patch Q3DAYS TD Last administered on at 08:31; Start 03/27/17 at 09:00; Stop 03/27/17 at 12:28; Status DC Fluticasone Propionate (Flonase) 2 spray PRN DAILY PRN NS DRYNESS; Start at 21:30; Stop 03/27/17 at 12:28; Status DC Furosemide (Lasix) 40 mg BID94 PO Last administered on 03/27/17at 08:30; Start 03/25/17 at 09:00; Stop 03/27/17 at 12:28; Status DC Acetaminophen/ Hydrocodone Bitart (Lortab 7.5/325) 1 tab PRN Q6HRS PRN PO SEVERE PAIN Last administered on 03/26/17at 21:05; Start 03/24/17 at 21:30; Stop 03/27/17 at 12:28; Status DC Metformin HCl (Glucophage) 500 mg BIDWMEALS PO Last administered on 03/27/17at 08:29; Start 03/25/17 at 08:00; Stop 03/27/17 at 12:28; Status DC Montelukast Sodium (Singulair) 10 mg QHS PO Last administered on 03/26/17at 21: 05; Start 03/24/17 at 22:00; Stop 03/27/17 at 12:28; Status DC Pantoprazole Sodium (Protonix) 40 mg DAILYAC PO Last administered on 03/27/17at 08:29; Start 03/25/17 at 07:30; Stop 03/27/17 at 12:28; Status DC Phenytoin Sodium (Dilantin) 400 mg QHS PO Last administered on 03/26/17at 21:06 ; Start 03/24/17 at 22:00; Stop 03/27/17 at 12:28; Status DC Potassium Chloride (Klor-Con) 20 meq BID PO Last administered on 03/27/17at 08: 30; Start 03/24/17 at 22:00; Stop 03/27/17 at 12:28; Status DC Prednisone (Prednisone) 5 mg DAILY PO Last administered on 03/27/17at 08:30; Start 03/25/17 at 09:00; Stop 03/27/17 at 12:28; Status DC Primidone (Mysoline) 100 mg QID PO Last administered on 03/27/17at 08:32; Start 03/25/17 at 09:00; Stop 03/27/17 at 12:28; Status DC Azelastine HCl (Astelin) 2 spray BID NS Last administered on 03/27/17at 08:31; Start 03/25/17 at 09:00; Stop 03/27/17 at 12:28; Status DC Non-Formulary Medication 1 puff DAILY IH ; Start 03/25/17 at 09:00; Status UNV Gabapentin (Neurontin) 600 mg TID PO Last administered on 03/27/17at 08:29; Start 03/24/17 at 22:00; Stop 03/27/17 at 12:28; Status DC Non-Formulary Medication 80 mg DAILY PO Last administered on 03/27/17at 08:31; Start 03/25/17 at 12:00; Stop 03/27/17 at 12:28; Status DC Mirtazapine (Remeron) 22.5 mg QHS PO Last administered on 03/26/17at 21:06; Start 03/24/17 at 22:00; Stop 03/27/17 at 12:28; Status DC Non-Formulary Medication 62.5 mcg DAILY IH ; Start 03/25/17 at 09:00; Status UNV Albuterol/ Ipratropium (Duoneb) 3 ml RTQID NEB Last administered on 03/27/17at 10:14; Start 03/25/17 at 08:00; Stop 03/27/17 at 12:28; Status DC Budesonide (Pulmicort) 0.5 mg RTBID NEB Last administered on 03/27/17at 10:14; Start 03/25/17 at 08:00; Stop 03/27/17 at 12:28; Status DC Active Scripts Active Prednisone 5 Mg Tablet 5 Mg PO DAILY Mysoline (Primidone) 50 Mg Tablet 100 Mg PO QID 30 Days Metformin Hcl 500 Mg Tablet 500 Mg PO BIDWMEALS 90 Days Albuterol Sulfate Neb Soln (Albuterol Sulfate) 2.5 Mg/3 Ml Vial.neb 2.5 Mg NEB PRN Q6HRS PRN 30 Days Reported FENTANYL 25mcg/hr (Fentanyl) 1 Each Patch.td72 1 Patch TP Q3DAYS LAST DOSE GIVEN: DATE: YESTERDAY TIME: AM NEXT DOSE DUE: DATE: SATURDAY TIME: AM Pulmicort (Budesonide) 0.5 Mg/2 Ml Ampul.neb 1 Vial NEB QID LAST DOSE GIVEN: DATE: TODAY TIME: AM NEXT DOSE DUE: DATE: TODAY TIME: PM Astepro (Azelastine Hcl) 205.5 Mcg/0.137 Ml Fowler.pump 2 Spr NS BID LAST DOSE GIVEN: DATE: TODAY TIME: AM NEXT DOSE DUE: DATE: TODAY TIME: PM Fluticasone Propionate Nasal Fowler (Fluticasone Propionate) 16 Gm Fowler.susp 2 Spr NS DAILY PRN LAST DOSE GIVEN: NOT GIVEN THIS ADMISSION NEXT DOSE DUE: DATE: TODAY TIME: IF NEEDED Ventolin Hfa Inhaler (Albuterol Sulfate) 18 Gm Hfa.aer.ad 1 Puff IH PRN QID PRN LAST DOSE GIVEN: NOT GIVEN THIS ADMISSION NEXT DOSE DUE: DATE: TODAY TIME: IF NEEDED Incruse Ellipta (Umeclidinium [place]) 62.5 Mcg Blst.w.dev 62.5 Mcg IH DAILY LAST DOSE GIVEN: NOT GIVEN THIS ADMISSION NEXT DOSE DUE: DATE: RESTART TOMORROW TIME: AM Breo Ellipta 100-25 Mcg Inh (Fluticasone/Vilanterol) 1 Each Aer.pow.ba 1 Puff IH DAILY LAST DOSE GIVEN: NOT GIVEN THIS ADMISSION NEXT DOSE DUE: DATE: TOMORROW TIME: AM Fetzima (Levomilnacipran Hydrochloride) 80 Mg Cap.sa.24h 80 Mg PO DAILY LAST DOSE GIVEN: DATE: TODAY TIME: AM NEXT DOSE DUE: DATE: TOMORROW TIME: AM Remeron (Mirtazapine) 45 Mg Tablet 0.5 Tab PO QHS LAST DOSE GIVEN: DATE: YESTERDAY TIME: AT BEDTIME NEXT DOSE DUE: DATE: TODAY TIME: AT BEDTIME Furosemide 80 Mg Tablet 40 Mg PO BID LAST DOSE GIVEN: DATE: TIME: AM NEXT DOSE DUE: DATE: TIME: AM Abilify (Aripiprazole) 5 Mg Tablet 1 Tab PO QHS LAST DOSE GIVEN: DATE: TIME: AT BEDTIME NEXT DOSE DUE: DATE: TIME: AT BEDTIME Hydrocodone-Apap 7.5-325 (Hydrocodone Bit/Acetaminophen) 1 Each Tablet 1-2 Tab PO PRN Q6HRS PRN LAST DOSE GIVEN: NOT GIVEN TODAY NEXT DOSE DUE: DATE: TODAY TIME: IF NEEDED TIME: IF AND WHEN NEEDED Gralise (Gabapentin) 600 Mg Tab.er.24h 1 Tab PO TID LAST DOSE GIVEN: DATE: TIME: AM NEXT DOSE DUE: DATE: TIME: AFTERNOON Klor-Con M20 (Potassium Chloride) 20 Meq Tab.er.prt 1 Tab PO BID LAST DOSE GIVEN: DATE: TIME: AM NEXT DOSE DUE: DATE: TIME: PM Montelukast Sodium Tablet (Montelukast Sodium) 10 Mg Tablet 10 Mg PO QHS LAST DOSE GIVEN: DATE: YES TIME: AT BEDTIME NEXT DOSE DUE: DATE: TIME: AT BEDTIME Protonix (Pantoprazole Sodium) 40 Mg Tablet.dr 40 Mg PO DAILYAC LAST DOSE GIVEN: DATE: TIME: BEFORE BREAKFAST NEXT DOSE DUE: DATE: TIME: BEFORE BREAKFAST Dilantin (Phenytoin Sodium Extended) 100 Mg Capsule 400 Mg PO QHS LAST DOSE GIVEN: DATE: TIME: AT BEDTIME NEXT DOSE DUE: DATE: TIME: AT BEDTIME Aspirin 81 Mg Tab.chew 81 Mg PO DAILY LAST DOSE GIVEN: DATE: TIME: AM NEXT DOSE DUE: DATE: TIME: AM Zetia (Ezetimibe) 10 Mg Tablet 10 Mg PO QHS LAST DOSE GIVEN: DATE: TIME: AT BEDTIME NEXT DOSE DUE: DATE: TIME: AT BEDTIME Diazepam 5 Mg Tablet 7.5 Mg PO QHS LAST DOSE GIVEN: DATE: TIME: AT BEDTIME NEXT DOSE DUE: DATE: TIME: AT BEDTIME Diazepam 5 Mg Tablet 2.5 Mg PO TIDPC LAST DOSE GIVEN: DATE: TIME: AM NEXT DOSE DUE: DATE: TODAY TIME: AFTERNOON Vitals/I & O Vital Sign - Last 24 Hours 03/26/17 03/26/17 03/26/17 03/26/17 15:18 16:15 19:30 19:42 Temp 97.6 Pulse 100 Resp 24 B/P (MAP) 142/84 (103) Pulse Ox 99 97 97 O2 Delivery Nasal Cannula Nasal Cannula Nasal Cannula Nasal Cannula O2 Flow Rate 3.0 3.0 2.0 3.0 03/26/17 03/26/17 03/26/17 03/26/17 19:42 20:45 21:05 23:05 Temp 98.0 98.9 Pulse 97 84 Resp 22 20 24 B/P (MAP) 122/71 (88) 118/67 (84) Pulse Ox 97 100 95 O2 Delivery Nasal Cannula BiPAP/CPAP BiPAP/CPAP BiPAP/CPAP O2 Flow Rate 3.0 2.0 2.0 2.0 03/26/17 03/27/17 03/27/17 03/27/17 23:13 05:25 05:39 08:30 Temp 97.3 Pulse 92 Resp 24 B/P (MAP) 145/81 (102) Pulse Ox 98 96 O2 Delivery BiPAP/CPAP BiPAP/CPAP BiPAP/CPAP Nasal Cannula O2 Flow Rate 2.0 3.0 2.0 03/27/17 03/27/17 08:31 10:15 Pulse Ox 96 99 O2 Delivery Nasal Cannula Nasal Cannula O2 Flow Rate 2.0 3.0 Intake and Output 03/26/17 03/26/17 03/27/17 15:00 23:00 07:00 Intake Total 720 ml 300 ml Output Total 600 ml Balance 120 ml 300 ml HEIDE RIVERA APRN Mar 27, 2017 14:41
--- NOTE | 2017-03-27 18:41 | DS ---
DATE OF DISCHARGE: 03/27/2017 HOSPITAL COURSE: A 66-year-old female. The patient has been traveling and was unable to get her BiPAP. Apparently, she desaturated and dropped to about 88%, became markedly confused, disoriented. She also went into mild congestive heart failure. The patient was admitted to the hospital for further evaluation, was diuresed, seen by Cardiology and the like. The patient made good progress during the rest of her hospitalization with diuresis in the usual pathway for CHF per Cardiology. The patient's chest x-ray did show pleural effusion, admitted initially with fluid congestion; however, that went down into normal; on the second x-ray, it showed clearance. In any case, the patient made good progress during the rest of her hospitalization. Her discharge weight was 223 pounds. LABORATORY DATA: The patient's labs, chemistries were basically unremarkable except for slightly low potassium of 3.4 and blood sugars were slightly elevated, otherwise the patient's A1c was 6.4. Cardiac enzymes were negative. She did have an elevated lactic acid, but it was felt related to her heart failure more than any type of infection, which was never found and she was afebrile. IMPRESSION: Therefore, new onset of acute diastolic heart failure, acute exacerbation of chronic obstructive pulmonary disease, history of atrial fibrillation, lactic acidosis, type 2 diabetes, morbid obesity, and the patient to stay in continuous oxygen. PLAN: See MRAD. Decreased activity, potassium supplements, and make further evaluation on her as indicated. SCOOTER HOPKINS MD DR: NGOZI/elisa JOB#: [id number] / [id number]
== END 2017-03-27 12:28 | disposition home health service (06) | DRG 291 ==
LOC: ER 13:40 → 1 SOUTH 17:51
PROVIDERS: ADMIT Family Medicine; ATTEND Family Medicine
DX: I50.33 Acute on chronic diastolic (congestive) heart failure (principal); J96.20 Acute and chronic respiratory failure, unspecified whether with hypoxia or hypercapnia; E87.2 Acidosis; J44.1 Chronic obstructive pulmonary disease with (acute) exacerbation; I48.91 Unspecified atrial fibrillation; K21.9 Gastro-esophageal reflux disease without esophagitis; M81.0 Age-related osteoporosis without current pathological fracture; E66.01 Morbid (severe) obesity due to excess calories; G47.30 Sleep apnea, unspecified; E11.9 Type 2 diabetes mellitus without complications; Z96.651 Presence of right artificial knee joint; F32.9 Major depressive disorder, single episode, unspecified; F41.9 Anxiety disorder, unspecified; M19.90 Unspecified osteoarthritis, unspecified site; Z86.711 Personal history of pulmonary embolism; Z99.81 Dependence on supplemental oxygen; Z88.0 Allergy status to penicillin; Z88.2 Allergy status to sulfonamides; Z79.899 Other long term (current) drug therapy; Z86.718 Personal history of other venous thrombosis and embolism; Z95.828 Presence of other vascular implants and grafts; Z82.49 Family history of ischemic heart disease and other diseases of the circulatory system; Z83.3 Family history of diabetes mellitus; Z85.820 Personal history of malignant melanoma of skin; Z90.710 Acquired absence of both cervix and uterus; Z90.49 Acquired absence of other specified parts of digestive tract; Z88.1 Allergy status to other antibiotic agents
CPT/HCPCS: 36415; 71045; 71046; 80048; 80053; 80307; 81001; 82550; 82803; 82947; 83036; 83605; 83880; 84484; 85025; 85379; 87086; 87804; 93005; 93306; 94640; J7512; J7620; J7626; 97110; 97535; G0479; J7030

== ENCOUNTER 2017-06-03 11:55 | Inpatient (IN) | payer MEDICARE, BC ==
[~2017-06-03] VITALS: Ht 162.6 cm; Wt 99.5 kg
[~2017-06-03 11:55] MED LIST changes: -SCOP1PAT TD; +SCOP1PAT11 TD
[2017-06-03 13:07] LABS: BASO % 1 % (0-3); EOS # 0.2 x10^3/uL (0.0-0.7); EOS % 4 % (0-3); HEMATOCRIT 37.2 % (36.0-47.0); HEMOGLOBIN 12.9 g/dL (12.0-15.5); LYMPH % 44 % (24-48); MEAN CORPUSCULAR HEMOGLOBIN 31 pg (25-35); MEAN CORPUSCULAR HGB CONC 35 g/dL (31-37); MEAN CORPUSCULAR VOLUME 91 fL (79-100); MONO # 0.5 x10^3/uL (0.0-1.1); MONO % 11 % (0-9); NEUT # 1.8 x10^3uL (1.8-7.7); NEUT % 41 % (31-73); PLATELET COUNT 202 x10^3/uL (140-400); RED BLOOD COUNT 4.11 x10^6/uL (3.50-5.40); WHITE BLOOD COUNT 4.5 x10^3/uL (4.0-11.0)
--- NOTE | 2017-06-03 13:16 | PHYS DOC ---
Past History Past Medical History: Anxiety, Asthma, COPD, Depression, Diabetes, Seizure Past Surgical History: Appendectomy Smoking: Non-smoker Alcohol Use: None Drug Use: None Adult General Chief Complaint Chief Complaint: DIZZY/LIGHT HEADED HPI HPI 66-year-old female patient with history of diabetes mellitus, hypertension, COPD on 3 L home oxygen, anxiety and depression, remote history of seizure on phenytoin complaining of constant dizziness for the last 2 weeks with generalized weakness. Patient states she has had headache for the last 4 days as a global headache and rated her pain 8/10. Patient denies nausea, focal neuro deficit, fever and chills, urinary symptom. Patient complaining of slurred speech since yesterday and increasing care dizziness. Patient was seen by her primary care physician regarding dizziness and treated with meclizine without improvement of her condition. Patient states she had episodes of dizziness intermittently but never had dizziness constantly for 2 weeks. Review of Systems Review of Systems Constitutional: Denies fever or chills [] Eyes: Denies change in visual acuity, redness, or eye pain [] HENT: Denies nasal congestion or sore throat [] Respiratory: Denies cough or shortness of breath [] Cardiovascular: No additional information not addressed in HPI [] GI: Denies abdominal pain, nausea, vomiting, bloody stools or diarrhea [] : Denies dysuria or hematuria [] Musculoskeletal: Denies back pain or joint pain [] Integument: Denies rash or skin lesions [] Neurologic: Reports headache, focal weakness or sensory changes [] Endocrine: Denies polyuria or polydipsia [] All other systems were reviewed and found to be within normal limits, except as documented in this note. Allergies Allergies Allergies Coded Allergies Type Severity Reaction Last Updated Verified Penicillins Allergy Intermediate 12/20/14 Yes Sulfa (Sulfonamide Antibiotics) Allergy Intermediate 12/20/14 Yes enoxaparin sodium Allergy Intermediate Rash 12/20/14 Yes erythromycin base Allergy Intermediate 12/20/14 Yes Physical Exam Physical Exam Constitutional: Well nourished, mild distress, non-toxic , slow speech and somnolent. [] HENT: Normocephalic, atraumatic, bilateral external ears normal, oropharynx moist, no oral exudates, nose normal. [] Eyes: PERRLA, EOMI, conjunctiva normal, no discharge. [] Neck: Normal range of motion, no tenderness, supple, no stridor. [] Cardiovascular:Heart rate regular rhythm, no murmur [] Lungs & Thorax: Bilateral breath sounds clear to auscultation [] Abdomen: Bowel sounds normal, soft, no tenderness, no masses, no pulsatile masses. [] Skin: Warm, dry, no erythema, no rash. [] Back: No tenderness, no CVA tenderness. [] Extremities: No tenderness, no cyanosis, no clubbing, ROM intact, no edema. [] Neurologic: Alert and oriented X 3, normal motor function, normal sensory function, no focal deficits noted, slurred speech. [] Psychologic: Affect normal, judgement normal, mood normal. [] EKG EKG [EKG interpreted by me. EKG at 1220 showed sinus rhythm at rate of 97, prolonged QT, no acute ST and T-wave abnormalities] Radiology/Procedures Radiology/Procedures [][address] [address] IMAGING REPORT Signed PATIENT: MADELAINE RM ACCOUNT: [id number] : 1950 LOCATION: ER AGE: 66 SEX: F EXAM STATUS: REG ER ORD. PHYSICIAN: ELGIN LUGO MD REASON: dizziness and slurred speech PROCEDURE: CHEST AP ONLY CHEST AP ONLY History: DIZZINESS, DIABETIC WITH HEADACHE AND GARBLED SPEECH Comparison: March 26, 2017 Findings: Single view of the chest is submitted. There is a lesser degree of inspiration for this exam. There may be small atelectasis or less likely infiltrate left lung base. There is no significant pleural fluid or pneumothorax. Cardiac silhouette is similar. Impression: 1. There is a lesser degree of inspiration for this exam. There may be some atelectasis, less likely infiltrate left lung base. Electronically signed by: Ana Solorio MD (06/03/2017 1:18 PM) [facility] DICTATED AND SIGNED BY: ANA SOLORIO MD DATE: 06/03/17 2455 CC: SCOOTER HOPKINS MD; ELGIN LUGO MD ~ [address] [address] IMAGING REPORT Signed PATIENT: MADELAINE RM ACCOUNT: [id number] : 1950 LOCATION: ER AGE: 66 SEX: F EXAM STATUS: REG ER ORD. PHYSICIAN: ELGIN LUGO MD REASON: dizziness and slurred speech PROCEDURE: CT HEAD WO CONTRAST CT HEAD WO CONTRAST Indication: DIABETIC PRESENTS WITH GARBLED SPEECH, DIZZINESS AND HEADACHE. PRIOR CT 09/18/16 SENT WITH REPORT Exposure: One or more of the following individualized dose reduction techniques were utilized for this examination: 1. Automated exposure control 2. Adjustment of the mA and/or kV according to patient size 3. Use of iterative reconstruction technique. Comparison: September 18, 2016 Contrast: None Posterior fossa unremarkable. No acute intracranial hemorrhage or extra-axial fluid collection. Banks-white matter distinction is intact. Multiple small intraparenchymal calcifications are again identified. Partially included sinuses demonstrate mild sphenoid sinus mucosal thickening. Mild ethmoid sinus mucosal thickening. Orbits appear unremarkable. No evidence of acute skull abnormality IMPRESSION: 1. Stable appearance since prior study. 2. No evidence of acute intracranial hemorrhage or mass effect. Electronically signed by: Mat Laboy MD (06/03/2017 1:18 PM) [facility] DICTATED AND SIGNED BY: MAT LABOY MD DATE: 06/03/17 1318 CC: SCOOTER HOPKINS MD; ELGIN LUGO MD ~ Course & Med Decision Making Course & Med Decision Making Pertinent Labs and Imaging studies reviewed. (See chart for details) Additional patient in ER showed 66-year-old female patient complaining of dizziness for 2 weeks and slow speech and headache for couple days. Patient had slow speech without focal neuro deficit. Labs showed elevation of lactic acid and ammonia UTI. Patient treated with IV fluid and antibiotic in ER. Dr. Hopkins informed at 1409 and agreed with plan of care and admission patient to telemetry bed. Dragon Disclaimer Dragon Disclaimer This electronic medical record was generated, in whole or in part, using a voice recognition dictation system. Departure Departure: Impression: Primary Impression: Hepatic encephalopathy Additional Impressions: Dizziness Lactic acidemia Vertigo Urinary tract infection Disposition: ADMITTED INPATIENT (At 1409) Condition: GUARDED Referrals: SCOOTER HOPKINS MD (PCP) Problem Qualifiers ELGIN LUGO MD Jun 03, 2017 13:16
--- NOTE | 2017-06-03 13:21 | RAD ---
CT HEAD WO CONTRAST Indication: DIABETIC PRESENTS WITH GARBLED SPEECH, DIZZINESS AND HEADACHE. PRIOR CT 09/18/16 SENT WITH REPORT Exposure: One or more of the following individualized dose reduction techniques were utilized for this examination: 1. Automated exposure control 2. Adjustment of the mA and/or kV according to patient size 3. Use of iterative reconstruction technique. Comparison: September 18, 2016 Contrast: None Posterior fossa unremarkable. No acute intracranial hemorrhage or extra-axial fluid collection. Banks-white matter distinction is intact. Multiple small intraparenchymal calcifications are again identified. Partially included sinuses demonstrate mild sphenoid sinus mucosal thickening. Mild ethmoid sinus mucosal thickening. Orbits appear unremarkable. No evidence of acute skull abnormality IMPRESSION: 1. Stable appearance since prior study. 2. No evidence of acute intracranial hemorrhage or mass effect. Electronically signed by: Mat Laboy MD (06/03/2017 1:18 PM) [facility]
--- NOTE | 2017-06-03 13:21 | RAD ---
CHEST AP ONLY History: DIZZINESS, DIABETIC WITH HEADACHE AND GARBLED SPEECH Comparison: March 26, 2017 Findings: Single view of the chest is submitted. There is a lesser degree of inspiration for this exam. There may be small atelectasis or less likely infiltrate left lung base. There is no significant pleural fluid or pneumothorax. Cardiac silhouette is similar. Impression: 1. There is a lesser degree of inspiration for this exam. There may be some atelectasis, less likely infiltrate left lung base. Electronically signed by: Kris Solorio MD (06/03/2017 1:18 PM) [facility]
[2017-06-03 13:23] LABS: ALBUMIN 3.4 g/dL (3.4-5.0); ALBUMIN/GLOBULIN RATIO 0.7 (1.0-1.7); ALK PHOS 171 U/L (46-116); ALT (SGPT) 25 U/L (14-59); ANION GAP 10 (6-14); AST (SGOT) 25 U/L (15-37); BLOOD UREA NITROGEN 14 mg/dL (7-20); BUN/CREATININE RATIO 16 (6-20); CALCIUM 9.3 mg/dL (8.5-10.1); CARBON DIOXIDE 30 mmol/L (21-32); CHLORIDE 103 mmol/L (98-107); CREATININE 0.9 mg/dL (0.6-1.0); GFR 62.6; GLUCOSE 111 mg/dL (70-99); PHENY 16.8 mcg/mL (10.0-20.0); POTASSIUM 3.6 mmol/L (3.5-5.1); SODIUM 143 mmol/L (136-145); TOTAL BILIRUBIN 0.3 mg/dL (0.2-1.0); TOTAL PROTEIN 8.2 g/dL (6.4-8.2)
[2017-06-03 13:49] LABS: BACTERIA,URINE MANY /HPF (0-FEW); BILIRUBIN,URINE NEG (NEG); CLARITY,URINE HAZY; COLOR,URINE YELLOW; GLUCOSE,URINE NEG (NEG); NITRITE,URINE NEG (NEG); RBC,URINE RARE /HPF (0-2); SQUAMOUS EPITHELIAL CELL,UR FEW /LPF; UROBILINOGEN,URINE 0.2 mg/dL (0.2 mg/dL)
[2017-06-03] MEDS: IV NORMAL SALINE 1,000ML 1,000 ML IV SCH ×2 (14:30→21:10)
[2017-06-03] MEDS ORDERED: IV NORMAL SALINE 1,000ML 1,000 ML IV ONE (14:30)
[2017-06-03] MEDS ORDERED: cefTRIAXone IV Push 1 GM VIAL. IVP ONE (14:30)
--- NOTE | 2017-06-03 16:35 | NUR ---
NRSG NOTE -- ADMISSION TELEPHONE REPORT PER ER, GEOFF MOSLEY. PT TO UNIT VIA [facility] AT 1625 ACCOMPANIED BY EMS AND . PT EVALUATED. PT FSBS 60, ADMINISTERED D50, 25 mL. FOLLOWUP FSBS 95.
[2017-06-03 16:40] VITALS: BP 123/87
[2017-06-03] MEDS ORDERED: DEXTROSE 50% 25 GM / 50ML DISP.SYRIN. IV ONE (16:50)
[2017-06-03] MEDS ORDERED: ALBUTEROL SULFATE 8GM INHALER. IH PRN (17:15)
[2017-06-03] MEDS ORDERED: ALBUTEROL SULFATE 2.5 MG/3 ML NEBU. NEB PRN (17:15)
[2017-06-03] MEDS ORDERED: FLUTICASONE 50MCG/NASAL SPRAY 16GM BOTTLE. NS PRN (17:15)
--- NOTE | 2017-06-03 17:27 | EKG ---
[address] [address] Test Date: 2017-06-03 Test Time: 12:20:02 Pat Name: MADELAINE RM Department: Room: 113 A Gender: F Transplant Rn: : 1950 Requested By: ELGIN LUGO Order Number: [id number] Reading MD: Jose Chawla MD Measurements Intervals [place] Rate: 97 P: 0 MI: 148 QRS: 3 QRSD: 102 T: 12 QT: 388 QTc: 497 Interpretive Statements SINUS RHYTHM PROLONGED QT Electronically Signed On 06-10-2017 15:36:47 CDT by Jose Chawla MD
[2017-06-03] MEDS: diazePAM 5 MG TABLET PO SCH ×2 (17:30→20:07)
[2017-06-03] MEDS ORDERED: FLUT1BLS3 IH (18:38)
[2017-06-03] MEDS ORDERED: PRIM50TA PO (18:38)
[2017-06-03] MEDS ORDERED: GABA-586 PO (18:38)
[2017-06-03] MEDS ORDERED: DEXTROSE 50% 25 GM / 50ML DISP.SYRIN. IV PRN (19:00)
[2017-06-03 19:39] VITALS: BP 113/65
--- NOTE | 2017-06-03 19:46 | NUR ---
NSG NOTE; DR Zack CASTILLO CONSULT CALLED TO OFFICE- PT SAW DR CASTILLO IN HIS OFFICE TODAY AND HE SENT HER TO THE ED
--- NOTE | 2017-06-03 19:46 | NUR ---
NSG NOTE; DR BETH CONSULT FAXED TO [facility] AT 1004
[2017-06-03] MEDS: PHENYTOIN SODIUM EXTENDED 100 MG CAPSULE PO SCH (20:06)
[2017-06-03] MEDS: MONTELUKAST 10 MG TABLET. PO SCH (20:07)
[2017-06-03] MEDS: MIRTAZAPINE 15 MG TABLET PO SCH (20:07)
[2017-06-03] MEDS ORDERED: MECL25TA3 PO (20:07)
[2017-06-03] MEDS: GABAPENTIN 300 MG CAPSULE. PO SCH (20:08)
[2017-06-03] MEDS: POTASSIUM CHLORIDE 20 MEQ TABLET.ER. PO SCH (20:08)
[2017-06-03] MEDS: ARIPiprazole 5 MG TABLET PO SCH (20:08)
[2017-06-03] MEDS: EZETIMIBE 10 MG TABLET PO SCH (20:09)
[2017-06-03] MEDS: PRIMIDONE 50 MG TABLET PO SCH ×2 (20:09→20:11)
[2017-06-03] MEDS: FUROSEMIDE 40 MG TABLET PO SCH (20:10)
[2017-06-03] MEDS ORDERED: MECLIZINE 12.5 MG TABLET. PO PRN (20:30)
[2017-06-03] MEDS: IPRATRPIUM/ALBUTEROL 0.5/2.5MG 3 ML NEBU. NEB SCH (20:44)
[2017-06-03] MEDS ORDERED: AZELASTINE NASAL SPRAY 30ML BOTTLE. NS SCH (21:00)
[2017-06-03] MEDS ORDERED: GABAPENTIN 300 MG CAPSULE. PO SCH (21:00)
[2017-06-03] MEDS ORDERED: BUDESONIDE 0.5 MG/2 ML NEBU NEB SCH (21:00)
[2017-06-03 23:43] VITALS: BP 131/75
[2017-06-04] MEDS: HYDROcodone/APAP 7.5/325MG 1 TAB TABLET PO PRN (01:38)
[2017-06-04] MEDS: IV NORMAL SALINE 1,000ML 1,000 ML IV SCH ×2 (03:50→09:03)
[2017-06-04] MEDS: IPRATRPIUM/ALBUTEROL 0.5/2.5MG 3 ML NEBU. NEB SCH ×4 (05:31→20:00)
[2017-06-04 06:02] VITALS: BP 98/51
[2017-06-04 07:45] LABS: BASO % 1 % (0-3); EOS # 0.2 x10^3/uL (0.0-0.7); EOS % 4 % (0-3); HEMATOCRIT 34.4 % (36.0-47.0); HEMOGLOBIN 11.8 g/dL (12.0-15.5); LYMPH # 2.2 x10^3/uL (1.0-4.8); LYMPH % 44 % (24-48); MEAN CORPUSCULAR HEMOGLOBIN 31 pg (25-35); MEAN CORPUSCULAR HGB CONC 34 g/dL (31-37); MEAN CORPUSCULAR VOLUME 91 fL (79-100); MONO # 0.5 x10^3/uL (0.0-1.1); MONO % 9 % (0-9); NEUT # 2.2 x10^3uL (1.8-7.7); NEUT % 43 % (31-73); PLATELET COUNT 184 x10^3/uL (140-400); RED BLOOD COUNT 3.78 x10^6/uL (3.50-5.40); RED CELL DISTRIBUTION WIDTH 16.1 % (11.5-14.5); WHITE BLOOD COUNT 5.1 x10^3/uL (4.0-11.0)
[2017-06-04 07:46] LABS: ALBUMIN/GLOBULIN RATIO 0.7 (1.0-1.7); CALCIUM 8.6 mg/dL (8.5-10.1); CREATININE 0.8 mg/dL (0.6-1.0); GFR 71.8; POTASSIUM 3.7 mmol/L (3.5-5.1); TOTAL BILIRUBIN 0.2 mg/dL (0.2-1.0); TOTAL PROTEIN 7.1 g/dL (6.4-8.2)
[2017-06-04] MEDS: metFORMIN 500 MG TABLET PO SCH ×2 (08:47→17:00)
[2017-06-04] MEDS: LEVOMILNACIPRAN HYDROCHLORIDE 80 MG PO SCH (08:48)
[2017-06-04] MEDS: diazePAM 5 MG TABLET PO SCH ×4 (08:49→20:31)
[2017-06-04] MEDS: ASPIRIN 81 MG TAB.CHEW PO SCH (08:50)
[2017-06-04] MEDS: PANTOPRAZOLE 40 MG TABLET. PO SCH (08:50)
[2017-06-04] MEDS: GABAPENTIN 300 MG CAPSULE. PO SCH ×4 (08:50→20:29)
[2017-06-04] MEDS: FUROSEMIDE 40 MG TABLET PO SCH ×2 (08:51→20:30)
[2017-06-04] MEDS: POTASSIUM CHLORIDE 20 MEQ TABLET.ER. PO SCH ×2 (08:51→20:30)
[2017-06-04] MEDS: PRIMIDONE 50 MG TABLET PO SCH ×5 (08:56→20:41)
[2017-06-04] MEDS: TRELEGY ELLIPTA INHALER IH SCH (08:56)
[2017-06-04] MEDS ORDERED: NON FORMULARY ITEM (Fluticasone/Vilanterol (Breo Ellipta 100-25 Mcg Inh) 1 PUFF) IH SCH (09:00)
[2017-06-04] MEDS ORDERED: predniSONE 5 MG TABLET PO SCH (09:00)
[2017-06-04] MEDS ORDERED: NON FORMULARY ITEM (Umeclidinium Bromide (Incruse Ellipta) 62.5 MCG) IH SCH (09:00)
[2017-06-04 11:05] VITALS: BP 118/62
[2017-06-04 15:00] VITALS: BP 116/65
--- NOTE | 2017-06-04 18:24 | CONS ---
DATE OF CONSULTATION: 06/04/2017 NEUROLOGY CONSULTATION REFERRING PHYSICIAN: Dr. Porter. REASON FOR CONSULTATION: Mental status changes and difficulty to stand and walk. HISTORY OF PRESENT ILLNESS: This is a 66-year-old right-handed female who presented with a chief complaint of 2-week history of intermittent global headaches and dizziness described as unsteadiness. The patient also complains of generalized weakness and difficulty to stand and walk. She denies any recent falls, visual disturbances, dysphagia, dysarthria. She has recently noticed slurred speech and intermittent confusion. The patient was treated in the past with meclizine for dizziness without significant improvement. Initial non-enhanced head CT scan revealed no acute intracranial process and mild sphenoid sinus mucosal thickening. PAST MEDICAL HISTORY: Significant for anxiety, depressions, COPD, asthma, diabetes mellitus, seizure disorders, obstructive sleep apnea. PAST SURGICAL HISTORY: Significant for appendectomy. SOCIAL HISTORY: The patient denies smoking, alcohol drinking, or illicit drug use. She is and lives with her at home. FAMILY HISTORY: Noncontributory. CURRENT HOME MEDICATIONS: Aspirin 81 mg daily, metformin 500 mg b.i.d., Protonix 40 mg daily, primidone 125 mg q.i.d., gabapentin 600 mg q.i.d., mirtazapine 22.5 mg at bedtime, potassium 20 mEq b.i.d., phenytoin 400 mg at bedtime, Singulair 10 mg at bedtime, furosemide 40 mg b.i.d., Zetia 10 mg at bedtime, Valium 7.5 mg at bedtime p.r.n., Abilify 5 mg at bedtime, meclizine 25 mg q.i.d. p.r.n. for dizziness, albuterol nebulizer p.r.n. ALLERGIES: PENICILLIN AND SULFA DRUGS, ENOXAPARIN SODIUM. PHYSICAL EXAMINATION: GENERAL: Moderately obese white female, not in acute distress. She weighs 219 pounds. VITAL SIGNS: Blood pressure 98/51, respiratory rate 18, pulse is 87 and regular, temperature 98.2, oxygen saturation 98% at 2.5 liter by nasal cannula. HEENT: Normocephalic, atraumatic, otherwise unremarkable. NECK: Supple. Negative for carotid bruit, lymphadenopathy, JVD or thyromegaly. LUNGS: Clear to A and P. CARDIOVASCULAR: Regular rhythm, normal S1, S2. ABDOMEN: There is no S3, S4, or murmur. ABDOMEN: Soft. Bowel sounds positive. EXTREMITIES: Negative for cyanosis, clubbing or pitting edema. NEUROLOGICAL: Mental Status: The patient is alert and oriented x 3. The speech is fluent. There is no language dysfunction. Memory, judgment, and abstract thinkings are normal. The patient denies hallucination or delusion. CRANIAL NERVES: Visual bruce are full. The pupils are reactive to light and accommodation. The extraocular movements are intact. There is no nystagmus. There is no facial motor or sensory deficit. Hearing is intact bilaterally. The palate is elevated symmetrically. Sternocleidomastoid muscles are powerful bilaterally. The patient shrugs her shoulders symmetrically and protrudes her tongue in the midline without fasciculation or atrophy. MOTOR: No focal muscle bulk was seen. The tone is normal. The strength is 4/5 throughout. Sensory examination revealed normal pinprick, light touch, vibratory and position senses. DEEP TENDON REFLEXES: Symmetric and hypoactive with absent Achilles responses. Gait: The patient uses a walker for ambulation. LABORATORY DATA: CBC revealed white blood cells of 5.1 thousand, hemoglobin 11.8, hematocrit 34.4, platelet count 184,000. Chemistry revealed sodium of 144, potassium 3.7, chloride 106, CO2 30, BUN 13, creatinine 0.8, glucose 121, calcium 8.6. Lactic acid is 2.8. Liver enzymes normal, but alkaline phosphatase is high with ammonia level of 87. Hemoglobin A1c is elevated at 6.4. Urinalysis shows a trace of urine leukocyte esterase with white blood cells 5-10 and many bacteria. Urine drug screen is positive for barbiturate due to primidone, phenytoin is 16.8 and urine drug screen is positive for benzodiazepine; otherwise unremarkable. DIAGNOSTIC DATA: Chest x-ray revealed no evidence of acute cardiopulmonary process; however, some atelectasis was also noted. Initial head CT scan is as described above in the history of present illness. IMPRESSION: 1. Generalized weakness and unsteady stance probably multifactorial including diabetes, peripheral neuropathy, history of chronic low back pain. 2. Hyperammonemia, may have contributed to the mental status changes and confusion. 3. Urinary tract infections, chronic obstructive pulmonary disease, gastroesophageal reflux disease, depressions, and tremor. RECOMMENDATIONS: Continue with current management and home medications along with careful IV hydration. Physical therapy evaluation. M Alvaro CASTILLO MD DR: TOLU/elisa JOB#: [id number] / [id number]
--- NOTE | 2017-06-04 18:41 | PDOC ---
Exam Note: [place] Note: Please also refer to the separate dictated note~for this date of service dictated separately.~Patient seen individually. Discussed the patient with Nursing staff reviewed the chart.~Reviewed interim history and current functioning. Reviewed vital signs,~Labs/ Radiology~and current medications noted below. Continue current treatment with the changes noted in the dictated addendum note Assessment: Vital Signs: Vital Signs Date Time Temp Pulse Resp B/P (MAP) Pulse Ox O2 Delivery O2 Flow Rate FiO2 06/04/17 15:25 95 Nasal Cannula 2.5 06/04/17 15:00 97.5 97 20 116/65 (82) I&O Intake and Output 06/04/17 07:00 Intake Total 1300 ml Output Total 1 ml Balance 1299 ml Intake Oral 500 ml IV Total 800 ml Output Stool Total 1 ml # Voids 3 Labs: Laboratory Tests Test 06/03/17 20:01 06/04/17 07:19 06/04/17 07:45 06/04/17 11:28 Glucose (Fingerstick) 97 mg/dL (70-99) 97 mg/dL (70-99) 161 mg/dL (70-99) H White Blood Count 5.1 x10^3/uL (4.0-11.0) Red Blood Count 3.78 x10^6/uL (3.50-5.40) Hemoglobin 11.8 g/dL (12.0-15.5) L Hematocrit 34.4 % (36.0-47.0) L Mean Corpuscular Volume 91 fL (79-100) Mean Corpuscular Hemoglobin 31 pg (25-35) Mean Corpuscular Hemoglobin Concent 34 g/dL (31-37) Red Cell Distribution Width 16.1 % (11.5-14.5) H Platelet Count 184 x10^3/uL (140-400) Neutrophils (%) (Auto) 43 % (31-73) Lymphocytes (%) (Auto) 44 % (24-48) Monocytes (%) (Auto) 9 % (0-9) Eosinophils (%) (Auto) 4 % (0-3) H Basophils (%) (Auto) 1 % (0-3) Neutrophils # (Auto) 2.2 x10^3uL (1.8-7.7) Lymphocytes # (Auto) 2.2 x10^3/uL (1.0-4.8) Monocytes # (Auto) 0.5 x10^3/uL (0.0-1.1) Eosinophils # (Auto) 0.2 x10^3/uL (0.0-0.7) Basophils # (Auto) 0.0 x10^3/uL (0.0-0.2) Sodium Level 144 mmol/L (136-145) Potassium Level 3.7 mmol/L (3.5-5.1) Chloride Level 106 mmol/L (98-107) Carbon Dioxide Level 30 mmol/L (21-32) Anion Gap 8 (6-14) Blood Urea Nitrogen 13 mg/dL (7-20) Creatinine 0.8 mg/dL (0.6-1.0) Estimated GFR (Cockcroft-Gault) 71.8 BUN/Creatinine Ratio 16 (6-20) Glucose Level 121 mg/dL (70-99) H Lactic Acid Level 2.8 mmol/L (0.4-2.0) H Calcium Level 8.6 mg/dL (8.5-10.1) Total Bilirubin 0.2 mg/dL (0.2-1.0) Aspartate Amino Transferase (AST) 19 U/L (15-37) Alanine Aminotransferase (ALT) 20 U/L (14-59) Alkaline Phosphatase 146 U/L (46-116) H Total Protein 7.1 g/dL (6.4-8.2) Albumin 3.0 g/dL (3.4-5.0) L Albumin/Globulin Ratio 0.7 (1.0-1.7) L Test 06/04/17 17:10 Glucose (Fingerstick) 86 mg/dL (70-99) Current Medications: Meds: Current Medications Ceftriaxone Sodium 1 gm/ Sodium Chloride 50 ml @ 100 mls/hr 1X ONCE IV ; Start 06/03/17 at 14:15; Stop 06/03/17 at 14:24; Status DC Sodium Chloride 1,000 ml @ 1,000 mls/hr 1X ONCE IV Last administered on at 14:30; Start 06/03/17 at 14:30; Stop 06/03/17 at 15:29; Status DC Sodium Chloride 1,000 ml @ 150 mls/hr Q6H40M IV Last administered on 06/04/17 09:03; Start 06/03/17 at 14:30; Stop 06/04/17 at 14:30; Status DC Ceftriaxone Sodium (Rocephin) 1 gm 1X ONCE IVP Last administered on 06/03/17 14:30; Start 06/03/17 at 14:30; Stop 06/03/17 at 14:31; Status DC Dextrose 25 gm STK-MED ONCE IV Last administered on 06/03/17 17:03; Start at 16:50; Stop 06/03/17 at 16:51; Status DC Albuterol Sulfate (Ventolin) 2.5 mg PRN Q6HRS PRN NEB SHORTNESS OF BREATH; Start 06/03/17 at 17:15 Albuterol Sulfate (Ventolin Hfa) 1 puff PRN QID PRN IH FOR ASTHMA; Start at 17:15; Stop 06/03/17 at 17:15; Status DC Aripiprazole (Abilify) 5 mg QHS PO Last administered on 06/03/17at 20:08; Start 06/03/17 at 21:00 Aspirin (Children'S Aspirin) 81 mg DAILY PO Last administered on 06/04/17at 08:50 ; Start 06/04/17 at 09:00 Budesonide (Pulmicort) 0.5 mg QID NEB ; Start 06/03/17 at 21:00; Stop 06/03/17 at 21:00; Status DC Diazepam (Valium) 2.5 mg TIDPC PO Last administered on 06/04/17at 17:46; Start at 17:30 Diazepam (Valium) 7.5 mg QHS PO Last administered on 06/03/17at 20:07; Start 06/03 at 21:00 EZETIMIBE (Zetia) 10 mg QHS PO Last administered on 06/03/17 20:09; Start at 21:00 Fentanyl (Duragesic 25mcg/ Hr) 1 patch Q3DAYS TD ; Start 06/06/17 at 09:00; Stop 06/06/17 at 09:00; Status DC Fluticasone Propionate (Flonase) 2 spray PRN DAILY PRN NS DRYNESS; Start at 17:15; Stop 06/03/17 at 18:43; Status DC Furosemide (Lasix) 40 mg BID PO Last administered on 06/04/17 08:51; Start 06/03 at 21:00 Acetaminophen/ Hydrocodone Bitart (Lortab 7.5/325) 1 tab PRN Q6HRS PRN PO PAIN Last administered on 06/04/17 01:38; Start 06/03/17 at 17:15 Metformin HCl (Glucophage) 500 mg BIDWMEALS PO Last administered on 06/04/17 08 :47; Start 06/04/17 at 08:00 Montelukast Sodium (Singulair) 10 mg QHS PO Last administered on 06/03/17 20:07 ; Start 06/03/17 at 21:00 Pantoprazole Sodium (Protonix) 40 mg DAILYAC PO Last administered on 06/04/17 08:50; Start 06/04/17 at 07:30 Phenytoin Sodium (Dilantin) 400 mg QHS PO Last administered on 06/03/17 20:06; Start 06/03/17 at 21:00 Potassium Chloride (Klor-Con) 20 meq BID PO Last administered on 06/04/17 08:51 ; Start 06/03/17 at 21:00 Prednisone (Prednisone) 5 mg DAILY PO ; Start 06/04/17 at 09:00; Stop 06/04/17 at 09:00; Status DC Primidone (Mysoline) 100 mg QID PO Last administered on 06/03/17at 20:09; Start 06/03/17 at 21:00; Stop 06/04/17 at 12:35; Status DC Azelastine HCl (Astelin) 2 spray BID NS ; Start 06/03/17 at 21:00; Stop 06/03/17 at 21:00; Status DC Non-Formulary Medication (Fluticasone/ Vilanterol (Breo Ellipta 100-25 Mcg Inh) ) 1 puff DAILY IH ; Start 06/04/17 at 09:00; Stop 06/04/17 at 09:00; Status DC Gabapentin (Neurontin) 600 mg TID PO ; Start 06/03/17 at 21:00; Stop 06/03/17 at 21:00; Status DC Non-Formulary Medication (Levomilnacipran Hydrochloride (Fetzima)) 80 mg DAILY PO Last administered on 06/04/17at 08:48; Start 06/04/17 at 09:00 Mirtazapine (Remeron) 22.5 mg QHS PO Last administered on 06/03/17at 20:07; Start 06/03/17 at 21:00 Non-Formulary Medication (Umeclidinium [place] (Incruse Ellipta)) 62.5 mcg DAILY IH ; Start 06/04/17 at 09:00; Stop 06/04/17 at 09:00; Status DC Albuterol/ Ipratropium (Duoneb) 3 ml RTQID NEB Last administered on 06/04/17at 15 :24; Start 06/03/17 at 20:00 Gabapentin (Neurontin) 300 mg QID PO Last administered on 06/04/17at 17:46; Start 06/03/17 at 21:00 Primidone (Mysoline) 125 mg QID PO Last administered on 06/04/17at 17:46; Start 06/03/17 at 21:00 Non-Formulary Medication (Fluticasone/ Umeclidin/ Vilanter (Trelegy Ellipta 100- 62.5-25)) 1 each DAILY IH ; Start 06/04/17 at 09:00 Dextrose 12.5 gm PRN Q15MIN PRN IV SEE COMMENTS; Start 06/03/17 at 19:00 Meclizine HCl (Antivert) 25 mg PRN QID PRN PO DIZZINESS; Start 06/03/17 at 20:30 Active Scripts Active Metformin Hcl 500 Mg Tablet 500 Mg PO BIDWMEALS 90 Days Albuterol Sulfate Neb Soln (Albuterol Sulfate) 2.5 Mg/3 Ml Vial.neb 2.5 Mg NEB PRN Q6HRS PRN 30 Days Reported Meclizine Hcl 25 Mg Tablet 1 Tab PO QID PRN LAST DOSE GIVEN: DATE: TIME: NEXT DOSE DUE: DATE: TIME: Trelegy Ellipta 100-62.5-25 (Fluticasone/Umeclidin/Vilanter) 1 Each Blst.w.dev 1 Each IH DAILY Gabapentin 300 Mg Capsule 300 Mg PO QID Primidone 50 Mg Tablet 125 Mg PO QID Astepro (Azelastine Hcl) 205.5 Mcg/0.137 Ml [place].pump 2 Spr NS BID PRN LAST DOSE GIVEN: DATE: TODAY TIME: AM NEXT DOSE DUE: DATE: TODAY TIME: PM Ventolin Hfa Inhaler (Albuterol Sulfate) 18 Gm Hfa.aer.ad 1 Puff IH PRN QID PRN LAST DOSE GIVEN: NOT GIVEN THIS ADMISSION NEXT DOSE DUE: DATE: TODAY TIME: IF NEEDED Fetzima (Levomilnacipran Hydrochloride) 80 Mg Cap.sa.24h 80 Mg PO DAILY LAST DOSE GIVEN: DATE: TODAY TIME: AM NEXT DOSE DUE: DATE: TOMORROW TIME: AM Remeron (Mirtazapine) 45 Mg Tablet 0.5 Tab PO QHS LAST DOSE GIVEN: DATE: YESTER TIME: AT BEDTIME NEXT DOSE DUE: DATE: TODAY TIME: AT BEDTIME Furosemide 80 Mg Tablet 80 Mg PO DAILY LAST DOSE GIVEN: DATE: TIME: AM NEXT DOSE DUE: DATE: TIME: AM Abilify (Aripiprazole) 5 Mg Tablet 1 Tab PO QHS LAST DOSE GIVEN: DATE: YESTER TIME: AT BEDTIME NEXT DOSE DUE: DATE: TODAY TIME: AT BEDTIME Hydrocodone-Apap 7.5-325 (Hydrocodone Bit/Acetaminophen) 1 Each Tablet 1-2 Tab PO PRN Q6HRS PRN LAST DOSE GIVEN: NOT GIVEN TODAY NEXT DOSE DUE: DATE: TODAY TIME: IF NEEDED TIME: IF AND WHEN NEEDED Klor-Con M20 (Potassium Chloride) 20 Meq Tab.er.prt 1 Tab PO BID LAST DOSE GIVEN: DATE: TIME: AM NEXT DOSE DUE: DATE: TODAY TIME: PM Montelukast Sodium Tablet (Montelukast Sodium) 10 Mg Tablet 10 Mg PO QHS LAST DOSE GIVEN: DATE: YESTER TIME: AT BEDTIME NEXT DOSE DUE: DATE: TODAY TIME: AT BEDTIME Protonix (Pantoprazole Sodium) 40 Mg Tablet.dr 40 Mg PO DAILYAC LAST DOSE GIVEN: DATE: TODAY TIME: BEFORE BREAKFAST NEXT DOSE DUE: DATE: ORR TIME: BEFORE BREAKFAST Dilantin (Phenytoin Sodium Extended) 100 Mg Capsule 400 Mg PO QHS LAST DOSE GIVEN: DATE: YESTER TIME: AT BEDTIME NEXT DOSE DUE: DATE: TODAY TIME: AT BEDTIME Aspirin 81 Mg Tab.chew 81 Mg PO DAILY LAST DOSE GIVEN: DATE: TODAY TIME: AM NEXT DOSE DUE: DATE: TOMORROW TIME: AM Zetia (Ezetimibe) 10 Mg Tablet 10 Mg PO QHS LAST DOSE GIVEN: DATE: YESTERDAY TIME: AT BEDTIME NEXT DOSE DUE: DATE: TODAY TIME: AT BEDTIME Diazepam 5 Mg Tablet 7.5 Mg PO QHS LAST DOSE GIVEN: DATE: YESTER TIME: AT BEDTIME NEXT DOSE DUE: DATE: TODAY TIME: AT BEDTIME Diazepam 5 Mg Tablet 2.5 Mg PO TIDPC LAST DOSE GIVEN: DATE: TODAY TIME: AM NEXT DOSE DUE: DATE: TODAY TIME: AFTERNOON I have reviewed the current psychotropics carefully including drug interactions. Risk benefit ratio favors no change other than as noted in my dictated progress note. Diagnosis: Problems: (1) Anxiety disorder (2) Major depressive disorder, recurrent episode (3) Vertigo SMILEY BETH MD Jun 04, 2017 18:41
[2017-06-04] MEDS: LACTULOSE 20 GM/30 ML SOLUTION. PO SCH ×2 (18:45→20:28)
--- NOTE | 2017-06-04 19:25 | HP ---
ADMIT DATE: HISTORY OF PRESENT ILLNESS: She is a 66-year-old female came in through the Emergency Room apparently having problems of severe anxiety, depression. The patient has been having a headache for the last 4 days, global headache, rated 8-10. The patient was having trouble speaking. She has slurred speech and increased dizziness. The patient came in for the possibility of a TIA versus stroke in evolution. PAST MEDICAL HISTORY: Cataract surgery. She has had essential tremors, seizures, peripheral neuropathy, numbness, hypercholesterolemia, respiratory disorder, on BiPAP, bronchitis, [place] filter ____, 3 liters of oxygen, on BiPAP at times, appendectomy, cholecystectomy, irritable bowel, obesity, hysterectomy, , incontinence, fibromyalgia, osteoarthritis, osteoporosis, tendinitis of the right shoulder joint, replacement of the right knee, depression, anxiety, previous suicide attempt, behavior problems. Cancer, skin cancer, melanoma 1995 and 2014. Clotting problems, [place] filter. She is up to date on the tetanus diphtheria vaccination, tetanus toxoid vaccination, influenza vaccination, pneumococcal vaccination, and surgeries. FAMILY HISTORY: Father and mother both with cardiovascular disease as well as diabetes. ALLERGIES: PENICILLIN AND SULFA. The patient had influenza vaccination, pneumococcal vaccinations. MEDICATIONS: Albuterol, Ventolin inhaler, Zetia 10, aspirin 81, hydrocodone, primidone 125, Dilantin 400 mg at bedtime, gabapentin 300 mg daily, Fetzima 80 mg daily, Remeron 45 mg daily, Abilify 5 mg daily, diazepam 5 mg at bedtime p.r.n., potassium chloride, furosemide 80 mg daily, Astepro nasal spray, meclizine, Protonix 40, metformin 500 mg b.i.d. SOCIAL HISTORY: The patient denies smoking, alcohol or drug use. The patient is a partial code. REVIEW OF SYSTEMS: As noted, generalized shortness of breath, trouble with slurred speech, double speech, at the time blurred vision, double vision, severe headache. Denies chest pain, denies shortness of breath except with exertion. Does have abdominal discomfort. Denies any nausea, vomiting, melena, hematochezia, hematemesis and neurologically baseline with severe anxiety and dizziness for this patient. PHYSICAL EXAMINATION: VITAL SIGNS: Blood pressure 116/60, respiratory rate 20, pulse 97, temperature afebrile, 2-1/2 liters at 95%. HEENT: The patient's head was atraumatic, normocephalic. Eyes: PERRLA without jaundice. Mouth and throat were normal. NECK: Supple, no JVD or thyromegaly. LUNGS: Diminished throughout, poor movement of air. CARDIOVASCULAR: Regular sinus rhythm, S1, S2, without murmur, rub, thrill, or extra heart sound. ABDOMEN: Soft, protuberant, nontender. No rebounding or guarding. Positive bowel sounds, no hepatosplenomegaly noted. EXTREMITIES: No clubbing, cyanosis or edema. NEUROLOGIC: The patient is oriented. IMPRESSION: Very anxious appearing female, generalized weakness, some intermittent confusion, type 2 diabetes, hyper-ammonia level, encephalopathy secondary to elevated ammonia level, urinary tract infection. PLAN: As above. Continue with monitoring patient, start her on lactulose and SCDs and make further evaluation on her as indicated. Also neurological consultation. SCOOTER HOPKINS MD DR: NGOZI/elisa JOB#: [id number] / [id number]
[2017-06-04 19:41] VITALS: BP 115/67
[2017-06-04] MEDS: EZETIMIBE 10 MG TABLET PO SCH (20:28)
[2017-06-04] MEDS: cefTRIAXone IV Push 1 GM VIAL. IVP SCH (20:28)
[2017-06-04] MEDS: PHENYTOIN SODIUM EXTENDED 100 MG CAPSULE PO SCH (20:29)
[2017-06-04] MEDS: MONTELUKAST 10 MG TABLET. PO SCH (20:29)
[2017-06-04] MEDS: LACTOBACILLUS RHAMNOSUS GG 1 CAPSULE. PO SCH (20:30)
[2017-06-04] MEDS: ARIPiprazole 5 MG TABLET PO SCH (20:30)
[2017-06-04] MEDS: MIRTAZAPINE 15 MG TABLET PO SCH (20:31)
[2017-06-04 23:12] VITALS: BP 126/80
[2017-06-05] MEDS: HYDROcodone/APAP 7.5/325MG 1 TAB TABLET PO PRN ×3 (01:04→17:41)
[2017-06-05 05:12] VITALS: BP 129/82
[2017-06-05] MEDS: IPRATRPIUM/ALBUTEROL 0.5/2.5MG 3 ML NEBU. NEB SCH ×4 (05:34→20:52)
[2017-06-05] MEDS: metFORMIN 500 MG TABLET PO SCH ×2 (09:00→17:26)
[2017-06-05] MEDS: diazePAM 5 MG TABLET PO SCH ×4 (09:00→20:16)
[2017-06-05] MEDS: PANTOPRAZOLE 40 MG TABLET. PO SCH (09:00)
[2017-06-05] MEDS: TRELEGY ELLIPTA INHALER IH SCH (09:01)
[2017-06-05] MEDS: ASPIRIN 81 MG TAB.CHEW PO SCH (09:01)
[2017-06-05] MEDS: LACTOBACILLUS RHAMNOSUS GG 1 CAPSULE. PO SCH ×2 (09:01→20:15)
[2017-06-05] MEDS: LEVOMILNACIPRAN HYDROCHLORIDE 80 MG PO SCH (09:01)
[2017-06-05] MEDS: POTASSIUM CHLORIDE 20 MEQ TABLET.ER. PO SCH ×2 (09:02→20:16)
[2017-06-05] MEDS: LACTULOSE 20 GM/30 ML SOLUTION. PO SCH ×4 (09:02→20:15)
[2017-06-05] MEDS: FUROSEMIDE 40 MG TABLET PO SCH ×2 (09:02→20:17)
[2017-06-05] MEDS: PRIMIDONE 50 MG TABLET PO SCH ×4 (09:03→20:15)
[2017-06-05] MEDS: GABAPENTIN 300 MG CAPSULE. PO SCH ×4 (09:03→20:16)
--- NOTE | 2017-06-05 10:15 | PN ---
DATE: PROGRESS NOTE SUBJECTIVE: The patient is very upset, anxious after she had a discussion with her yesterday. The patient stated her told her he is not going to be around her because she is manipulating him. Therefore, the patient has been more anxious and crying most of the time. Dr. Barron has seen her and adjusted her medications. She denies chest pain. She continues to have exertion and shortness of breath. Her trauma has somewhat aggravated by being anxious and depressed. OBJECTIVE: GENERAL: A moderately obese white female in no acute distress. VITAL SIGNS: Blood pressure 129/82, respiratory rate 20, pulse is 81 and regular, temperature 97.8, oxygen saturation is 97% on 2.5 liters of oxygen via nasal cannula. HEENT: Normocephalic, atraumatic, otherwise unremarkable. NECK: Supple. Negative for carotid bruits, lymphadenopathy, or thyromegaly. LUNGS: Clear to A and P. CARDIOVASCULAR: Regular rate and rhythm, normal S1, S2. ABDOMEN: Soft. Bowel sounds positive. EXTREMITIES: Negative for cyanosis, clubbing, or edema. NEUROLOGIC: Mental status, the patient is more alert and oriented x 3. Speech is clear. There are no language dysfunctions. The patient recalls 2/3 immediately and after 1 and 3 minutes. Judgment and abstract thinking are normal. The patient denies hallucinations or delusions. Cranial nerves and intact. Motor examination revealed no focal muscle bulk was seen. The tone is normal. The strength is 4/5 throughout. Sensory examination reveal normal pinprick and light touch senses throughout. Deep tendon reflexes were symmetrical and hypoactive with absent Achilles responses. Gait: The patient uses a walker for ambulation. LABORATORY DATA: Ammonia level is low, it is low at 50 and glucose is 102. IMPRESSION: 1. Generalized weakness, probably multifactorial. 2. Acute encephalopathy - improved probably due to hyperammonemia. 3. Multiple medical problems includes urinary tract infections, COPD, GERD, depression, and anxiety disorders. RECOMMENDATION: Continue with current management initiated by Dr. Porter and current psychotropic medications. M Alvaro CASTILLO MD DR: TOLU/elisa JOB#: [id number] / [id number]
[2017-06-05 10:18] VITALS: BP 139/79
[2017-06-05 14:43] VITALS: BP 135/80
--- NOTE | 2017-06-05 18:01 | PN ---
DATE: SUBJECTIVE: The patient is still somewhat confused, still some garbled speech. Her ammonia levels down to 50; however, the patient is still very weak wobbly, shaky whenever she attempts to walk. Oxygen saturation looks improved; however, the patient is still having problems with increased heart rate whenever she attempts to do anything. OBJECTIVE: VITAL SIGNS: Blood pressure 140/80, respiratory rate 20, pulse 100, afebrile. GENERAL: The patient is alert and oriented. LUNGS: Diminished throughout, poor movement of air, but clear. CARDIOVASCULAR: Regular sinus rhythm. ABDOMEN: Soft, nontender, protuberant. EXTREMITIES: No clubbing, cyanosis, or edema. NEUROLOGIC: The patient is somewhat confused, garbled slurred speech. We will go ahead and continue with the lactulose. IMPRESSION: Metabolic encephalopathy, type 2 diabetes, elevated ammonia levels, urinary tract infection, intermittent confusion, garbled speech, morbid obesity. SCOOTER HOPKINS MD DR: NGOZI/elisa JOB#: [id number] / [id number]
--- NOTE | 2017-06-05 18:36 | PDOC ---
Exam Note: Morales Note: Please also refer to the separate dictated note~for this date of service dictated separately.~Patient seen individually. Discussed the patient with Nursing staff reviewed the chart.~Reviewed interim history and current functioning. Reviewed vital signs,~Labs/ Radiology~and current medications noted below. Continue current treatment with the changes noted in the dictated addendum note Assessment: Vital Signs: Vital Signs Date Time Temp Pulse Resp B/P (MAP) Pulse Ox O2 Delivery O2 Flow Rate FiO2 06/05/17 17:41 Room Air 06/05/17 15:35 95 06/05/17 14:43 97.3 86 20 135/80 (98) 3.0 I&O Intake and Output 06/05/17 07:00 Intake Total 3217.78 ml Balance 3217.78 ml Intake Oral 1020 ml IV Total 2197.78 ml # Voids 5 # Bowel Movements 1 Labs: Laboratory Tests Test 06/04/17 20:03 06/05/17 05:52 06/05/17 07:27 06/05/17 11:32 Glucose (Fingerstick) 93 mg/dL (70-99) 102 mg/dL (70-99) H 134 mg/dL (70-99) H Ammonia 50 mcmol/L (11-34) H Test 06/05/17 16:28 Glucose (Fingerstick) 106 mg/dL (70-99) H Current Medications: Meds: Current Medications Ceftriaxone Sodium 1 gm/ Sodium Chloride 50 ml @ 100 mls/hr 1X ONCE IV ; Start 06/03/17 at 14:15; Stop 06/03/17 at 14:24; Status DC Sodium Chloride 1,000 ml @ 1,000 mls/hr 1X ONCE IV Last administered on at 14:30; Start 06/03/17 at 14:30; Stop 06/03/17 at 15:29; Status DC Sodium Chloride 1,000 ml @ 150 mls/hr Q6H40M IV Last administered on 06/04/17at 09:03; Start 06/03/17 at 14:30; Stop 06/04/17 at 14:30; Status DC Ceftriaxone Sodium (Rocephin) 1 gm 1X ONCE IVP Last administered on 06/03/17at 14:30; Start 06/03/17 at 14:30; Stop 06/03/17 at 14:31; Status DC Dextrose 25 gm STK-MED ONCE IV Last administered on 06/03/17at 17:03; Start at 16:50; Stop 06/03/17 at 16:51; Status DC Albuterol Sulfate (Ventolin) 2.5 mg PRN Q6HRS PRN NEB SHORTNESS OF BREATH; Start 06/03/17 at 17:15 Albuterol Sulfate (Ventolin Hfa) 1 puff PRN QID PRN IH FOR ASTHMA; Start at 17:15; Stop 06/03/17 at 17:15; Status DC Aripiprazole (Abilify) 5 mg QHS PO Last administered on 06/04/17 20:30; Start 06/03/17 at 21:00 Aspirin (Children'S Aspirin) 81 mg DAILY PO Last administered on 06/05/17 09:01 ; Start 06/04/17 at 09:00 Budesonide (Pulmicort) 0.5 mg QID NEB ; Start 06/03/17 at 21:00; Stop 06/03/17 at 21:00; Status DC Diazepam (Valium) 2.5 mg TIDPC PO Last administered on 06/05/17 17:32; Start at 17:30 Diazepam (Valium) 7.5 mg QHS PO Last administered on 06/04/17at 20:31; Start 06/03 at 21:00 EZETIMIBE (Zetia) 10 mg QHS PO Last administered on 06/04/17 20:28; Start at 21:00 Fentanyl (Duragesic 25mcg/ Hr) 1 patch Q3DAYS TD ; Start 06/06/17 at 09:00; Stop 06/06/17 at 09:00; Status DC Fluticasone Propionate (Flonase) 2 spray PRN DAILY PRN NS DRYNESS; Start at 17:15; Stop 06/03/17 at 18:43; Status DC Furosemide (Lasix) 40 mg BID PO Last administered on 06/05/17at 09:02; Start 06/03 at 21:00 Acetaminophen/ Hydrocodone Bitart (Lortab 7.5/325) 1 tab PRN Q6HRS PRN PO PAIN Last administered on 06/05/17 17:41; Start 06/03/17 at 17:15 Metformin HCl (Glucophage) 500 mg BIDWMEALS PO Last administered on 06/05/17 17 :26; Start 06/04/17 at 08:00 Montelukast Sodium (Singulair) 10 mg QHS PO Last administered on 06/04/17 20:29 ; Start 06/03/17 at 21:00 Pantoprazole Sodium (Protonix) 40 mg DAILYAC PO Last administered on 06/05/17 09:00; Start 06/04/17 at 07:30 Phenytoin Sodium (Dilantin) 400 mg QHS PO Last administered on 06/04/17 20:29; Start 06/03/17 at 21:00 Potassium Chloride (Klor-Con) 20 meq BID PO Last administered on 06/05/17 09:02 ; Start 06/03/17 at 21:00 Prednisone (Prednisone) 5 mg DAILY PO ; Start 06/04/17 at 09:00; Stop 06/04/17 at 09:00; Status DC Primidone (Mysoline) 100 mg QID PO Last administered on 06/03/17 20:09; Start 06/03/17 at 21:00; Stop 06/04/17 at 12:35; Status DC Azelastine HCl (Astelin) 2 spray BID NS ; Start 06/03/17 at 21:00; Stop 06/03/17 at 21:00; Status DC Non-Formulary Medication (Fluticasone/ Vilanterol (Breo Ellipta 100-25 Mcg Inh) ) 1 puff DAILY IH ; Start 06/04/17 at 09:00; Stop 06/04/17 at 09:00; Status DC Gabapentin (Neurontin) 600 mg TID PO ; Start 06/03/17 at 21:00; Stop 06/03/17 at 21:00; Status DC Non-Formulary Medication (Levomilnacipran Hydrochloride (Fetzima)) 80 mg DAILY PO Last administered on 06/05/17 09:01; Start 06/04/17 at 09:00 Mirtazapine (Remeron) 22.5 mg QHS PO Last administered on 06/04/17 20:31; Start 06/03/17 at 21:00 Non-Formulary Medication (Umeclidinium [place] (Incruse Ellipta)) 62.5 mcg DAILY IH ; Start 06/04/17 at 09:00; Stop 06/04/17 at 09:00; Status DC Albuterol/ Ipratropium (Duoneb) 3 ml RTQID NEB Last administered on 06/05/17 15 :35; Start 06/03/17 at 20:00 Gabapentin (Neurontin) 300 mg QID PO Last administered on 06/05/17 17:32; Start 06/03/17 at 21:00 Primidone (Mysoline) 125 mg QID PO Last administered on 06/05/17 17:32; Start 06/03/17 at 21:00 Non-Formulary Medication (Fluticasone/ Umeclidin/ Vilanter (Trelegy Ellipta 100- 62.5-25)) 1 each DAILY IH Last administered on 06/05/17 09:01; Start 06/04/17 at 09:00 Dextrose 12.5 gm PRN Q15MIN PRN IV SEE COMMENTS; Start 06/03/17 at 19:00 Meclizine HCl (Antivert) 25 mg PRN QID PRN PO DIZZINESS; Start 06/03/17 at 20:30 Lactulose (Lactulose) 20 gm QID PO Last administered on 06/05/17 17:26; Start 06/04/17 at 18:45 Ceftriaxone Sodium 1 gm/ Sodium Chloride 50 ml @ 100 mls/hr Q24H IV ; Start 06/04/17 at 19:45; Stop 06/04/17 at 19:45; Status DC Ceftriaxone Sodium (Rocephin) 1 gm Q24H IVP Last administered on 06/04/17 20:28 ; Start 06/04/17 at 20:00 Lactobacillus Rhamnosus (Culturelle) 1 cap BID PO Last administered on 09:01; Start 06/04/17 at 21:00 Active Scripts Active Metformin Hcl 500 Mg Tablet 500 Mg PO BIDWMEALS 90 Days Albuterol Sulfate Neb Soln (Albuterol Sulfate) 2.5 Mg/3 Ml Vial.neb 2.5 Mg NEB PRN Q6HRS PRN 30 Days Reported Meclizine Hcl 25 Mg Tablet 1 Tab PO QID PRN LAST DOSE GIVEN: DATE: TIME: NEXT DOSE DUE: DATE: TIME: Trelegy Ellipta 100-62.5-25 (Fluticasone/Umeclidin/Vilanter) 1 Each Blst.w.dev 1 Each IH DAILY Gabapentin 300 Mg Capsule 300 Mg PO QID Primidone 50 Mg Tablet 125 Mg PO QID Astepro (Azelastine Hcl) 205.5 Mcg/0.137 Ml [place].pump 2 Spr NS BID PRN LAST DOSE GIVEN: DATE: TODAY TIME: AM NEXT DOSE DUE: DATE: TODAY TIME: PM Ventolin Hfa Inhaler (Albuterol Sulfate) 18 Gm Hfa.aer.ad 1 Puff IH PRN QID PRN LAST DOSE GIVEN: NOT GIVEN THIS ADMISSION NEXT DOSE DUE: DATE: TODAY TIME: IF NEEDED Fetzima (Levomilnacipran Hydrochloride) 80 Mg Cap.sa.24h 80 Mg PO DAILY LAST DOSE GIVEN: DATE: TIME: AM NEXT DOSE DUE: DATE: TOMORROW TIME: AM Remeron (Mirtazapine) 45 Mg Tablet 0.5 Tab PO QHS LAST DOSE GIVEN: DATE: YESTERDAY TIME: AT BEDTIME NEXT DOSE DUE: DATE: TODAY TIME: AT BEDTIME Furosemide 80 Mg Tablet 80 Mg PO DAILY LAST DOSE GIVEN: DATE: TODAY TIME: AM NEXT DOSE DUE: DATE: TOMORROW TIME: AM Abilify (Aripiprazole) 5 Mg Tablet 1 Tab PO QHS LAST DOSE GIVEN: DATE: YES TIME: AT BEDTIME NEXT DOSE DUE: DATE: TODAY TIME: AT BEDTIME Hydrocodone-Apap 7.5-325 (Hydrocodone Bit/Acetaminophen) 1 Each Tablet 1-2 Tab PO PRN Q6HRS PRN LAST DOSE GIVEN: NOT GIVEN TODAY NEXT DOSE DUE: DATE: TODAY TIME: IF NEEDED TIME: IF AND WHEN NEEDED Klor-Con M20 (Potassium Chloride) 20 Meq Tab.er.prt 1 Tab PO BID LAST DOSE GIVEN: DATE: TODAY TIME: AM NEXT DOSE DUE: DATE: TODAY TIME: PM Montelukast Sodium Tablet (Montelukast Sodium) 10 Mg Tablet 10 Mg PO QHS LAST DOSE GIVEN: DATE: YESTER TIME: AT BEDTIME NEXT DOSE DUE: DATE: TODAY TIME: AT BEDTIME Protonix (Pantoprazole Sodium) 40 Mg Tablet.dr 40 Mg PO DAILYAC LAST DOSE GIVEN: DATE: TODAY TIME: BEFORE BREAKFAST NEXT DOSE DUE: DATE: TOMORROW TIME: BEFORE BREAKFAST Dilantin (Phenytoin Sodium Extended) 100 Mg Capsule 400 Mg PO QHS LAST DOSE GIVEN: DATE: YESTER TIME: AT BEDTIME NEXT DOSE DUE: DATE: TODAY TIME: AT BEDTIME Aspirin 81 Mg Tab.chew 81 Mg PO DAILY LAST DOSE GIVEN: DATE: TIME: AM NEXT DOSE DUE: DATE: ORR TIME: AM Zetia (Ezetimibe) 10 Mg Tablet 10 Mg PO QHS LAST DOSE GIVEN: DATE: YESTER TIME: AT BEDTIME NEXT DOSE DUE: DATE: TODAY TIME: AT BEDTIME Diazepam 5 Mg Tablet 7.5 Mg PO QHS LAST DOSE GIVEN: DATE: YES TIME: AT BEDTIME NEXT DOSE DUE: DATE: TIME: AT BEDTIME Diazepam 5 Mg Tablet 2.5 Mg PO TIDPC LAST DOSE GIVEN: DATE: TIME: AM NEXT DOSE DUE: DATE: TODAY TIME: AFTERNOON I have reviewed the current psychotropics carefully including drug interactions. Risk benefit ratio favors no change other than as noted in my dictated progress note. Diagnosis: Problems: (1) Major depressive disorder, recurrent episode (2) Anxiety disorder SMILEY BETH MD Jun 05, 2017 18:36
[2017-06-05 19:37] VITALS: BP 106/54
[2017-06-05] MEDS: cefTRIAXone IV Push 1 GM VIAL. IVP SCH (20:15)
[2017-06-05] MEDS: EZETIMIBE 10 MG TABLET PO SCH (20:16)
[2017-06-05] MEDS: ARIPiprazole 5 MG TABLET PO SCH (20:16)
[2017-06-05] MEDS: MONTELUKAST 10 MG TABLET. PO SCH (20:16)
[2017-06-05] MEDS: MIRTAZAPINE 15 MG TABLET PO SCH (20:16)
[2017-06-05] MEDS: PHENYTOIN SODIUM EXTENDED 100 MG CAPSULE PO SCH (20:23)
--- NOTE | 2017-06-05 21:34 | CONS ---
DATE OF CONSULTATION: 06/04/2017 PSYCHIATRIC CONSULTATION This is a late entry for date of service 06/04/2017 and covers the elements not covered in my initial note of 06/04/2017. IDENTIFYING DATA: The patient is a 66-year-old female seen in bed [address] [place] [address] on the request of Dr. Porter, for a psychiatric consult for the patient's symptoms of depression. She has had for an extended period of time suicidal ideation. The patient was seen individually, discussed with nursing staff, reviewed the chart. CHIEF COMPLAINT: "Yes, I have been depressed. I have had trouble standing and walking. I would not hurt myself. My says "I don't need to be in the hospital and I do not need oxygen, maybe I should just go home without all that." HISTORY OF PRESENT ILLNESS: The patient has a long history of depression, anxiety, with a 2-week history of headaches, dizziness, unsteady gait, weakness, difficulty with ambulation. She has also appeared little more confused, but recognized me from my prior visit as I met with her in the evening of 06/04/2017. No active suicidal or homicidal ideation. No clear history of bipolar disorder. CT head showed no acute changes. PAST PSYCHIATRIC HISTORY: Positive for depression, anxiety. PAST MEDICAL HISTORY: Positive for COPD, asthma, diabetes mellitus, seizure disorder, obstructive sleep apnea. PAST SURGICAL HISTORY: Appendectomy. The patient states she believes her has been upset at her for many years since his daughter had outed herself and said she was mackenzie and the patient had intervened to make sure that her 's daughter does not propose to her own daughter. She believes her has resented her ever since then. She has been seeing Dr. Lyn for psychotherapy as an outpatient and we will have her involved in this as well on my recommendation. CURRENT PSYCHOTROPICS: Abilify 5 mg at bedtime, Remeron 22.5 mg at bedtime, Valium 7.5 mg at bedtime p.r.n. ALLERGIES: PENICILLIN, SULFA, ENOXAPARIN SODIUM. FAMILY HISTORY: Noncontributory. SOCIAL HISTORY: The patient lives at home with her . No alcohol or drug abuse history and she is a nonsmoker. MENTAL STATUS EXAM: The patient was seen individually in the evening of 06/04/2017. She seemed to recognize me, somewhat labile, anxious, depressed. No suicidal or homicidal ideation. Attention span short. Language function intact. Intellect average. Insight fair. Judgment intact to standard questioning. IMPRESSION: Major depressive disorder, recurrent; anxiety disorder, unspecified; cognitive disorder, unspecified. Rest as above. PLAN: From a psychiatric standpoint, continue current psychotropics. Continue psychotherapy with Dr. Lyn. The patient should be seen perhaps at the [facility] for a psychiatric consult. Adjustments made in her psychotropics as clinically indicated. Dr. Porter, thank you for the opportunity to participate in your patient's care. We will follow with you. SMILEY BETH MD DR: CHRIS/nts JOB#: [id number] / [id number]
[2017-06-05 22:49] VITALS: BP 109/67
[2017-06-06] MEDS: HYDROcodone/APAP 7.5/325MG 1 TAB TABLET PO PRN (01:23)
[2017-06-06] MEDS: IPRATRPIUM/ALBUTEROL 0.5/2.5MG 3 ML NEBU. NEB SCH (05:30)
[2017-06-06 05:32] VITALS: BP 103/61
[2017-06-06 07:40] LABS: BASO # 0.1 x10^3/uL (0.0-0.2); BASO % 1 % (0-3); EOS # 0.3 x10^3/uL (0.0-0.7); EOS % 5 % (0-3); HEMATOCRIT 38.6 % (36.0-47.0); HEMOGLOBIN 13.3 g/dL (12.0-15.5); LYMPH # 1.5 x10^3/uL (1.0-4.8); LYMPH % 26 % (24-48); MEAN CORPUSCULAR HEMOGLOBIN 31 pg (25-35); MEAN CORPUSCULAR HGB CONC 35 g/dL (31-37); MEAN CORPUSCULAR VOLUME 91 fL (79-100); MONO # 0.4 x10^3/uL (0.0-1.1); MONO % 7 % (0-9); NEUT # 3.4 x10^3uL (1.8-7.7); NEUT % 61 % (31-73); PLATELET COUNT 208 x10^3/uL (140-400); RED BLOOD COUNT 4.26 x10^6/uL (3.50-5.40); RED CELL DISTRIBUTION WIDTH 16.1 % (11.5-14.5); WHITE BLOOD COUNT 5.7 x10^3/uL (4.0-11.0)
[2017-06-06 07:44] LABS: ALBUMIN 3.5 g/dL (3.4-5.0); ALBUMIN/GLOBULIN RATIO 0.7 (1.0-1.7); CREATININE 0.8 mg/dL (0.6-1.0); GFR 71.8; POTASSIUM 3.2 mmol/L (3.5-5.1); TOTAL BILIRUBIN 0.3 mg/dL (0.2-1.0); TOTAL PROTEIN 8.2 g/dL (6.4-8.2)
[2017-06-06] MEDS ORDERED: fentaNYL 25MCG/HR 1 PATCH PATCH TD SCH (09:00)
[2017-06-06] MEDS: TRELEGY ELLIPTA INHALER IH SCH (09:40)
[2017-06-06] MEDS: metFORMIN 500 MG TABLET PO SCH (09:40)
[2017-06-06] MEDS: PANTOPRAZOLE 40 MG TABLET. PO SCH (09:40)
[2017-06-06] MEDS: diazePAM 5 MG TABLET PO SCH (09:41)
[2017-06-06] MEDS: LACTOBACILLUS RHAMNOSUS GG 1 CAPSULE. PO SCH (09:42)
[2017-06-06] MEDS: ASPIRIN 81 MG TAB.CHEW PO SCH (09:42)
[2017-06-06] MEDS: LACTULOSE 20 GM/30 ML SOLUTION. PO SCH (09:43)
[2017-06-06] MEDS: POTASSIUM CHLORIDE 20 MEQ TABLET.ER. PO SCH (09:43)
[2017-06-06] MEDS: FUROSEMIDE 40 MG TABLET PO SCH (09:44)
[2017-06-06] MEDS: GABAPENTIN 300 MG CAPSULE. PO SCH (09:44)
[2017-06-06] MEDS: PRIMIDONE 50 MG TABLET PO SCH (09:44)
[2017-06-06] MEDS: LEVOMILNACIPRAN HYDROCHLORIDE 80 MG PO SCH (09:53)
--- NOTE | 2017-06-06 10:56 | NUR ---
Nursing Discharge Note: [facility] via wheelchair accompanied by her .
--- NOTE | 2017-06-06 12:32 | PN ---
DATE: SUBJECTIVE: The patient denies any new medical or neurological complaints. She continues to be somewhat anxious and depressed with mild tremors. She denies any other major, new medical complaints. OBJECTIVE: GENERAL: Moderately obese white female, not in acute distress. VITAL SIGNS: Blood pressure 103/61, respiratory rate is 18, pulse is 86 regular, temperature 97.6, oxygen saturation 95% on 3 liters by nasal cannula. HEENT: Normocephalic, atraumatic, otherwise unremarkable. NECK: Supple. Negative for carotid bruit, lymphadenopathy or thyromegaly. LUNGS: Clear to A and P. CARDIOVASCULAR: Regular rhythm. Normal S1, S2. ABDOMEN: Soft. Bowel sounds positive. EXTREMITIES: Negative for cyanosis, clubbing or pitting edema. NEUROLOGICAL EXAMINATION: 1. MENTAL STATUS: The patient is alert and oriented x 3. Speech is fluent. There is no language dysfunction. Memory, judgment, and abstract thinkings are normal. The patient denies hallucination or delusion. Cranial nerves are intact. 2. MOTOR EXAMINATION: No focal muscle bulk was seen. The tone is normal. The strength is 4/5 throughout. Sensory examination revealed normal pinprick, light touch, vibratory and position senses. Deep tendon reflexes were symmetric and hypoactive with absent Achilles responses. 3. GAIT: The patient uses a walker for ambulation. She is more steady on her feet, but the stance is still unsteady. LABORATORY DATA: Ammonia level is 39 and glucose is 93. CBC revealed white blood cells of 5.7 thousand, hemoglobin 13.3, hematocrit 38.6, platelet count 208,000. Chemistry: Sodium 142, potassium 3.2, chloride 101, CO2 of 27, BUN 7, creatinine 0.8, glucose is 93. Lactic acid is 2.8. Liver enzymes are normal. IMPRESSION: 1. Acute encephalopathy -- improved. 2. Multiple psychiatric problems include ____ anxiety disorders and depressions. 3. Multiple medical problems include seizure disorder, urinary tract infection, chronic obstructive pulmonary disease, gastroesophageal reflux disease. RECOMMENDATION: Continue with current management initiated by Dr. Porter and continue his antianxiety and psychotropic medications. M Alvaro CASTILLO MD DR: TOLU/elisa JOB#: [id number] / [id number]
--- NOTE | 2017-06-06 22:59 | PN ---
DATE: 06/05/2017 This is a late entry, 06/05/2017, covers the elements not covered in my initial note, 06/05/2017. SUBJECTIVE: I met with the patient in the evening of 06/05/2017. The patient remains depressed, anxious, labile, and tearful at times. She; however, was able to tell me that her perhaps has been slightly more supportive and she is pleased with this. She is sleeping poorly, did have a 6-minute walk with physical therapy per nursing report and has been tearful. REVIEW OF SYSTEMS: Ambulation impaired. No CV, , pulmonary, eye system symptoms on review, shortness of breath is evident. MENTAL STATUS EXAM: Reasonably oriented. Speech is coherent, has some latency, abstraction fair, computation impaired, language function intact, attention span short. Mood and affect somewhat withdrawn. LABORATORY DATA: Reviewed. IMPRESSION: Major depressive disorder; anxiety disorder, unspecified. PLAN: Continue psychotropics as mentioned in my initial note. May consider reducing Valium during the daytime and adding an antidepressant, perhaps Cymbalta without reassess on 06/06/2017, for this when she is medically stable. SMILEY BETH MD DR: CHRIS/elisa JOB#: [id number] / [id number]
== END 2017-06-06 11:05 | DRG 441 ==
LOC: ER 11:55 → 1 SOUTH 14:09
PROVIDERS: ADMIT Family Medicine; ATTEND Family Medicine
DX: K72.90 Hepatic failure, unspecified without coma (principal); G93.41 Metabolic encephalopathy; E87.2 Acidosis; E72.20 Disorder of urea cycle metabolism, unspecified; N39.0 Urinary tract infection, site not specified; F33.9 Major depressive disorder, recurrent, unspecified; E11.42 Type 2 diabetes mellitus with diabetic polyneuropathy; E66.01 Morbid (severe) obesity due to excess calories; G89.29 Other chronic pain; E78.00 Pure hypercholesterolemia, unspecified; F09 Unspecified mental disorder due to known physiological condition; M79.7 Fibromyalgia; G40.909 Epilepsy, unspecified, not intractable, without status epilepticus; F41.9 Anxiety disorder, unspecified; G47.33 Obstructive sleep apnea (adult) (pediatric); J44.9 Chronic obstructive pulmonary disease, unspecified; I10 Essential (primary) hypertension; K21.9 Gastro-esophageal reflux disease without esophagitis; M81.0 Age-related osteoporosis without current pathological fracture; M19.90 Unspecified osteoarthritis, unspecified site; Z79.899 Other long term (current) drug therapy; Z79.82 Long term (current) use of aspirin; Z82.49 Family history of ischemic heart disease and other diseases of the circulatory system; Z83.3 Family history of diabetes mellitus; Z68.37 Body mass index [BMI] 37.0-37.9, adult; Z90.49 Acquired absence of other specified parts of digestive tract; Z85.820 Personal history of malignant melanoma of skin; Z90.710 Acquired absence of both cervix and uterus; Z99.81 Dependence on supplemental oxygen; Z91.5 Personal history of self-harm; Z88.1 Allergy status to other antibiotic agents; Z88.0 Allergy status to penicillin; Z88.2 Allergy status to sulfonamides; Z88.8 Allergy status to other drugs, medicaments and biological substances
CPT/HCPCS: 36415; 51701; 70450; 71045; 80053; 80185; 81001; 82140; 82553; 82947; 83605; 84484; 85025; 85610; 87040; 93005; 94618; 94640; 94760; 96361; 96374; J0696; J7620; 99285-25; J7030

== ENCOUNTER 2017-06-06 10:28 | Inpatient (IN) | payer MEDICARE, BC ==
[~2017-06-06] VITALS: Ht 162.6 cm; Wt 99.5 kg
[~2017-06-06 10:28] MED LIST changes: +FLUT1BLS3 IH; +GABA-586 PO
[2017-06-06 11:37] VITALS: BP 131/74
[2017-06-06] MEDS ORDERED: ALBUTEROL SULFATE 2.5 MG/3 ML NEBU. NEB PRN (11:45)
[2017-06-06] MEDS ORDERED: ALBUTEROL SULFATE 8GM INHALER. IH PRN (11:45)
[2017-06-06] MEDS ORDERED: DEXTROSE 50% 25 GM / 50ML DISP.SYRIN. IV PRN (12:00)
[2017-06-06] MEDS: INSULIN ASPART 300 UNITS/3 ML INSULN.PEN SQ SCH ×3 (12:12→20:21)
[2017-06-06] MEDS ORDERED: MECLIZINE 12.5 MG TABLET. PO PRN (13:00)
[2017-06-06] MEDS: HYDROcodone/APAP 7.5/325MG 1 TAB TABLET PO PRN (13:01)
[2017-06-06] MEDS: diazePAM 5 MG TABLET PO SCH ×3 (13:12→20:26)
[2017-06-06] MEDS: PRIMIDONE 50 MG TABLET PO SCH ×3 (13:12→20:25)
[2017-06-06] MEDS: GABAPENTIN 300 MG CAPSULE. PO SCH ×3 (13:12→20:25)
[2017-06-06] MEDS: IPRATRPIUM/ALBUTEROL 0.5/2.5MG 3 ML NEBU. NEB SCH ×2 (16:44→20:52)
[2017-06-06] MEDS: LACTULOSE 20 GM/30 ML SOLUTION. PO SCH ×2 (16:49→20:26)
[2017-06-06] MEDS: metFORMIN 500 MG TABLET PO SCH (16:50)
[2017-06-06 18:21] VITALS: BP 133/81
--- NOTE | 2017-06-06 18:21 | PDOC ---
Exam Note: Morales Note: Please also refer to the separate dictated note~for this date of service dictated separately.~Patient seen individually. Discussed the patient with Nursing staff reviewed the chart.~Reviewed interim history and current functioning. Reviewed vital signs,~Labs/ Radiology~and current medications noted below. Continue current treatment with the changes noted in the dictated addendum note Assessment: Vital Signs: Vital Signs Date Time Temp Pulse Resp B/P (MAP) Pulse Ox O2 Delivery O2 Flow Rate FiO2 06/06/17 16:44 96 Room Air 06/06/17 13:42 2.0 06/06/17 13:01 16 06/06/17 11:37 98.9 113 131/74 (93) Current Medications: Meds: Current Medications Albuterol Sulfate (Ventolin) 2.5 mg PRN Q6HRS PRN NEB SHORTNESS OF BREATH; Start 06/06/17 at 11:45 Albuterol Sulfate (Ventolin Hfa) 1 puff PRN QID PRN IH FOR ASTHMA; Start at 11:45; Status UNV Aripiprazole (Abilify) 5 mg QHS PO ; Start 06/06/17 at 21:00 Aspirin (Children'S Aspirin) 81 mg DAILY PO ; Start 06/07/17 at 09:00 Diazepam (Valium) 2.5 mg TIDPC PO Last administered on 06/06/17at 16:49; Start at 12:30 Diazepam (Valium) 7.5 mg QHS PO ; Start 06/06/17 at 21:00 EZETIMIBE (Zetia) 10 mg QHS PO ; Start 06/06/17 at 21:00 Furosemide (Lasix) 80 mg DAILY PO ; Start 06/07/17 at 09:00 Gabapentin (Neurontin) 300 mg QID PO Last administered on 06/06/17 16:49; Start 06/06/17 at 13:00 Acetaminophen/ Hydrocodone Bitart (Lortab 7.5/325) 1 tab PRN Q6HRS PRN PO PAIN Last administered on 06/06/17 13:01; Start 06/06/17 at 11:45 Metformin HCl (Glucophage) 500 mg BIDWMEALS PO Last administered on 06/06/17at 16 :50; Start 06/06/17 at 17:00 Montelukast Sodium (Singulair) 10 mg QHS PO ; Start 06/06/17 at 21:00 Pantoprazole Sodium (Protonix) 40 mg DAILYAC PO ; Start 06/07/17 at 07:30 Phenytoin Sodium (Dilantin) 400 mg QHS PO ; Start 06/06/17 at 21:00 Potassium Chloride (Klor-Con) 20 meq BID PO ; Start 06/06/17 at 21:00 Primidone (Mysoline) 125 mg QID PO Last administered on 06/06/17at 16:50; Start 06/06/17 at 13:00 Azelastine HCl (Astelin) 2 spray BID NS ; Start 06/06/17 at 21:00 Non-Formulary Medication (Fluticasone/ Umeclidin/ Vilanter (Trelegy Ellipta 100- 62.5-25)) 1 each DAILY IH ; Start 06/07/17 at 09:00 Non-Formulary Medication (Levomilnacipran Hydrochloride (Fetzima)) 80 mg DAILY PO ; Start 06/07/17 at 09:00 Meclizine HCl (Antivert) 25 mg PRN QID PRN PO DIZZINESS; Start 06/06/17 at 13:00 Mirtazapine (Remeron) 22.5 mg QHS PO ; Start 06/06/17 at 21:00 Insulin Aspart (NovoLOG) 0-7 UNITS QIDACHS SQ ; Start 06/06/17 at 12:00 Dextrose 12.5 gm PRN Q15MIN PRN IV SEE COMMENTS; Start 06/06/17 at 12:00 Lactulose (Lactulose) 20 gm QID PO Last administered on 06/06/17at 16:49; Start 06/06/17 at 17:00 Albuterol/ Ipratropium (Duoneb) 3 ml RTQID NEB Last administered on 06/06/17at 16 :44; Start 06/06/17 at 16:45 Active Scripts Active Metformin Hcl 500 Mg Tablet 500 Mg PO BIDWMEALS 90 Days Albuterol Sulfate Neb Soln (Albuterol Sulfate) 2.5 Mg/3 Ml Vial.neb 2.5 Mg NEB PRN Q6HRS PRN 30 Days Reported Meclizine Hcl 25 Mg Tablet 1 Tab PO QID PRN LAST DOSE GIVEN: DATE: TIME: NEXT DOSE DUE: DATE: TIME: Trelegy Ellipta 100-62.5-25 (Fluticasone/Umeclidin/Vilanter) 1 Each Blst.w.dev 1 Each IH DAILY Gabapentin 300 Mg Capsule 300 Mg PO QID Primidone 50 Mg Tablet 125 Mg PO QID Astepro (Azelastine Hcl) 205.5 Mcg/0.137 Ml [place].pump 2 Spr NS BID PRN LAST DOSE GIVEN: DATE: TODAY TIME: AM NEXT DOSE DUE: DATE: TODAY TIME: PM Ventolin Hfa Inhaler (Albuterol Sulfate) 18 Gm Hfa.aer.ad 1 Puff IH PRN QID PRN LAST DOSE GIVEN: NOT GIVEN THIS ADMISSION NEXT DOSE DUE: DATE: TODAY TIME: IF NEEDED Fetzima (Levomilnacipran Hydrochloride) 80 Mg Cap.sa.24h 80 Mg PO DAILY LAST DOSE GIVEN: DATE: TIME: AM NEXT DOSE DUE: DATE: TOMORROW TIME: AM Remeron (Mirtazapine) 45 Mg Tablet 0.5 Tab PO QHS LAST DOSE GIVEN: DATE: YESTERDAY TIME: AT BEDTIME NEXT DOSE DUE: DATE: TODAY TIME: AT BEDTIME Furosemide 80 Mg Tablet 80 Mg PO DAILY LAST DOSE GIVEN: DATE: TODAY TIME: AM NEXT DOSE DUE: DATE: TOMORROW TIME: AM Abilify (Aripiprazole) 5 Mg Tablet 1 Tab PO QHS LAST DOSE GIVEN: DATE: YESTER TIME: AT BEDTIME NEXT DOSE DUE: DATE: TODAY TIME: AT BEDTIME Hydrocodone-Apap 7.5-325 (Hydrocodone Bit/Acetaminophen) 1 Each Tablet 1-2 Tab PO PRN Q6HRS PRN LAST DOSE GIVEN: NOT GIVEN TODAY NEXT DOSE DUE: DATE: TODAY TIME: IF NEEDED TIME: IF AND WHEN NEEDED Klor-Con M20 (Potassium Chloride) 20 Meq Tab.er.prt 1 Tab PO BID LAST DOSE GIVEN: DATE: TODAY TIME: AM NEXT DOSE DUE: DATE: TODAY TIME: PM Montelukast Sodium Tablet (Montelukast Sodium) 10 Mg Tablet 10 Mg PO QHS LAST DOSE GIVEN: DATE: YESTER TIME: AT BEDTIME NEXT DOSE DUE: DATE: TODAY TIME: AT BEDTIME Protonix (Pantoprazole Sodium) 40 Mg Tablet.dr 40 Mg PO DAILYAC LAST DOSE GIVEN: DATE: TODAY TIME: BEFORE BREAKFAST NEXT DOSE DUE: DATE: TOMORROW TIME: BEFORE BREAKFAST Dilantin (Phenytoin Sodium Extended) 100 Mg Capsule 400 Mg PO QHS LAST DOSE GIVEN: DATE: YESTER TIME: AT BEDTIME NEXT DOSE DUE: DATE: TODAY TIME: AT BEDTIME Aspirin 81 Mg Tab.chew 81 Mg PO DAILY LAST DOSE GIVEN: DATE: TIME: AM NEXT DOSE DUE: DATE: ORR TIME: AM Zetia (Ezetimibe) 10 Mg Tablet 10 Mg PO QHS LAST DOSE GIVEN: DATE: YESTER TIME: AT BEDTIME NEXT DOSE DUE: DATE: TODAY TIME: AT BEDTIME Diazepam 5 Mg Tablet 7.5 Mg PO QHS LAST DOSE GIVEN: DATE: YES TIME: AT BEDTIME NEXT DOSE DUE: DATE: TIME: AT BEDTIME Diazepam 5 Mg Tablet 2.5 Mg PO TIDPC LAST DOSE GIVEN: DATE: TODAY TIME: AM NEXT DOSE DUE: DATE: TODAY TIME: AFTERNOON I have reviewed the current psychotropics carefully including drug interactions. Risk benefit ratio favors no change other than as noted in my dictated progress note. Diagnosis: Problems: (1) Anxiety disorder (2) Major depressive disorder, recurrent episode SMILEY BETH MD Jun 06, 2017 18:21
[2017-06-06] MEDS ORDERED: POTASSIUM CHLORIDE 20 MEQ TABLET.ER. PO ONE (20:00)
[2017-06-06] MEDS: MIRTAZAPINE 15 MG TABLET PO SCH (20:24)
[2017-06-06] MEDS: EZETIMIBE 10 MG TABLET PO SCH (20:25)
[2017-06-06] MEDS: MONTELUKAST 10 MG TABLET. PO SCH (20:25)
[2017-06-06] MEDS: ARIPiprazole 5 MG TABLET PO SCH (20:25)
[2017-06-06] MEDS: PHENYTOIN SODIUM EXTENDED 100 MG CAPSULE PO SCH (20:25)
[2017-06-06] MEDS: AZELASTINE NASAL SPRAY 30ML BOTTLE. NS SCH (20:26)
[2017-06-06] MEDS: POTASSIUM CHLORIDE 20 MEQ TABLET.ER. PO SCH (20:29)
--- NOTE | 2017-06-06 23:09 | PN ---
DATE: 06/06/2017 PSYCHIATRIC PROGRESS NOTE This note covers elements not covered in the initial note of 06/06/2017. SUBJECTIVE: The patient has been transferred to the Swing Bed Unit and I have been asked to consult from a psychiatric standpoint by Dr. Porter. Overall, the patient has been little more interactive, still appears depressed, tearful per nursing report. I met with her at some length in her room. She states she is pleased. Her said they are going to focus on what they have positive between them rather than going back to the negatives. She still feels depressed, tearful at times. MENTAL STATUS EXAM: Reasonably oriented. Speech is coherent, abstraction fair, computation impaired, language function intact, attention span short. Mood and affect remains somewhat depressed. No suicidal or homicidal ideation at this time. LABORATORY DATA: Reviewed. IMPRESSION: Major depressive disorder with history of psychotic features; anxiety disorder, unspecified. PLAN: The patient is currently on Valium 2.5 mg 3 times a day, 7.5 mg at bedtime. We will reduce the daytime Valium to 2.5 mg twice a day, maintain 7.5 at bedtime. We will continue Remeron 22.5 mg at bedtime, Abilify 5 mg a day, start Cymbalta 30 mg a day for her depression and anxiety. We would plan to reduce Valium, further increase Cymbalta gradually. SMILEY BETH MD DR: CHRIS/elisa JOB#: [id number] / [id number]
[2017-06-07 05:50] VITALS: BP 125/74
[2017-06-07] MEDS: IPRATRPIUM/ALBUTEROL 0.5/2.5MG 3 ML NEBU. NEB SCH ×4 (06:01→21:09)
[2017-06-07 07:04] LABS: CREATININE 0.8 mg/dL (0.6-1.0); GFR 71.8; POTASSIUM 3.7 mmol/L (3.5-5.1)
[2017-06-07] MEDS: diazePAM 5 MG TABLET PO SCH ×3 (08:10→19:57)
[2017-06-07] MEDS: DULoxetine HCL 30 MG CAPSULE.DR PO SCH (08:10)
[2017-06-07] MEDS: metFORMIN 500 MG TABLET PO SCH ×2 (08:10→16:42)
[2017-06-07] MEDS: ASPIRIN 81 MG TAB.CHEW PO SCH (08:10)
[2017-06-07] MEDS: FUROSEMIDE 80 MG TABLET PO SCH (08:10)
[2017-06-07] MEDS: GABAPENTIN 300 MG CAPSULE. PO SCH ×4 (08:10→19:56)
[2017-06-07] MEDS: LACTULOSE 20 GM/30 ML SOLUTION. PO SCH ×4 (08:11→19:58)
[2017-06-07] MEDS: PANTOPRAZOLE 40 MG TABLET. PO SCH (08:11)
[2017-06-07] MEDS: AZELASTINE NASAL SPRAY 30ML BOTTLE. NS SCH ×2 (08:11→19:55)
[2017-06-07] MEDS: POTASSIUM CHLORIDE 20 MEQ TABLET.ER. PO SCH ×2 (08:11→19:56)
[2017-06-07] MEDS: PRIMIDONE 50 MG TABLET PO SCH ×4 (08:12→19:59)
[2017-06-07] MEDS: TRELEGY ELLIPTA INHALER IH SCH (08:12)
[2017-06-07] MEDS: INSULIN ASPART 300 UNITS/3 ML INSULN.PEN SQ SCH ×4 (08:13→19:26)
[2017-06-07] MEDS: FETZIMA 80 MG PO SCH (08:13)
[2017-06-07] MEDS: HYDROcodone/APAP 7.5/325MG 1 TAB TABLET PO PRN (11:31)
--- NOTE | 2017-06-07 18:26 | PDOC ---
Exam Note: Morales Note: Please also refer to the separate dictated note~for this date of service dictated separately.~Patient seen individually. Discussed the patient with Nursing staff reviewed the chart.~Reviewed interim history and current functioning. Reviewed vital signs,~Labs/ Radiology~and current medications noted below. Continue current treatment with the changes noted in the dictated addendum note Assessment: Vital Signs: Vital Signs Date Time Temp Pulse Resp B/P (MAP) Pulse Ox O2 Delivery O2 Flow Rate FiO2 06/07/17 15:43 97 Room Air 06/07/17 11:31 16 06/07/17 05:50 97.6 94 125/74 (91) 06/06/17 20:45 0.0 I&O Intake and Output 06/07/17 07:00 Intake Total 720 ml Output Total 1 ml Balance 719 ml Intake Oral 720 ml Output Urine Total 1 ml # Voids 5 # Bowel Movements 3 Labs: Laboratory Tests Test 06/06/17 19:11 06/07/17 06:28 06/07/17 07:46 06/07/17 11:46 Glucose (Fingerstick) 177 mg/dL (70-99) H 132 mg/dL (70-99) H 140 mg/dL (70-99) H Sodium Level 140 mmol/L (136-145) Potassium Level 3.7 mmol/L (3.5-5.1) Chloride Level 102 mmol/L (98-107) Carbon Dioxide Level 22 mmol/L (21-32) Anion Gap 16 (6-14) H Blood Urea Nitrogen 13 mg/dL (7-20) # Creatinine 0.8 mg/dL (0.6-1.0) Estimated GFR (Cockcroft-Gault) 71.8 Glucose Level 134 mg/dL (70-99) H Calcium Level 9.0 mg/dL (8.5-10.1) Ammonia 67 mcmol/L (11-34) H Test 06/07/17 16:24 Glucose (Fingerstick) 119 mg/dL (70-99) H Current Medications: Meds: Current Medications Albuterol Sulfate (Ventolin) 2.5 mg PRN Q6HRS PRN NEB SHORTNESS OF BREATH; Start 06/06/17 at 11:45 Albuterol Sulfate (Ventolin Hfa) 1 puff PRN QID PRN IH FOR ASTHMA; Start at 11:45; Status UNV Aripiprazole (Abilify) 5 mg QHS PO Last administered on 06/06/17 20:25; Start 06/06/17 at 21:00 Aspirin (Children'S Aspirin) 81 mg DAILY PO Last administered on 06/07/17 08:10 ; Start 06/07/17 at 09:00 Diazepam (Valium) 2.5 mg TIDPC PO Last administered on 06/06/17 16:49; Start at 12:30; Stop 06/06/17 at 18:30; Status DC Diazepam (Valium) 7.5 mg QHS PO Last administered on 06/06/17 20:26; Start 06/06 at 21:00 EZETIMIBE (Zetia) 10 mg QHS PO Last administered on 06/06/17 20:25; Start at 21:00 Furosemide (Lasix) 80 mg DAILY PO Last administered on 06/07/17 08:10; Start at 09:00 Gabapentin (Neurontin) 300 mg QID PO Last administered on 06/07/17 16:42; Start 06/06/17 at 13:00 Acetaminophen/ Hydrocodone Bitart (Lortab 7.5/325) 1 tab PRN Q6HRS PRN PO PAIN Last administered on 06/07/17 11:31; Start 06/06/17 at 11:45 Metformin HCl (Glucophage) 500 mg BIDWMEALS PO Last administered on 06/07/17 16 :42; Start 06/06/17 at 17:00 Montelukast Sodium (Singulair) 10 mg QHS PO Last administered on 06/06/17 20:25 ; Start 06/06/17 at 21:00 Pantoprazole Sodium (Protonix) 40 mg DAILYAC PO Last administered on 06/07/17 08:11; Start 06/07/17 at 07:30 Phenytoin Sodium (Dilantin) 400 mg QHS PO Last administered on 06/06/17 20:25; Start 06/06/17 at 21:00 Potassium Chloride (Klor-Con) 20 meq BID PO Last administered on 06/07/17 08:11 ; Start 06/06/17 at 21:00 Primidone (Mysoline) 125 mg QID PO Last administered on 06/07/17 16:42; Start 06/06/17 at 13:00 Azelastine HCl (Astelin) 2 spray BID NS Last administered on 06/07/17 08:11; Start 06/06/17 at 21:00 Non-Formulary Medication (Fluticasone/ Umeclidin/ Vilanter (Trelegy Ellipta 100- 62.5-25)) 1 each DAILY IH Last administered on 06/07/17 08:12; Start 06/07/17 at 09:00 Non-Formulary Medication (Levomilnacipran Hydrochloride (Fetzima)) 80 mg DAILY PO Last administered on 06/07/17 08:13; Start 06/07/17 at 09:00 Meclizine HCl (Antivert) 25 mg PRN QID PRN PO DIZZINESS; Start 06/06/17 at 13:00 Mirtazapine (Remeron) 22.5 mg QHS PO Last administered on 06/06/17 20:24; Start 06/06/17 at 21:00 Insulin Aspart (NovoLOG) 0-7 UNITS QIDACHS SQ ; Start 06/06/17 at 12:00 Dextrose 12.5 gm PRN Q15MIN PRN IV SEE COMMENTS; Start 06/06/17 at 12:00 Lactulose (Lactulose) 20 gm QID PO Last administered on 06/07/17 16:42; Start 06/06/17 at 17:00 Albuterol/ Ipratropium (Duoneb) 3 ml RTQID NEB Last administered on 06/07/17 15 :42; Start 06/06/17 at 16:45 Diazepam (Valium) 2.5 mg BIDAFTMEAL PO Last administered on 06/07/17 16:42; Start 06/07/17 at 09:00 Duloxetine HCl (Cymbalta) 30 mg DAILY PO Last administered on 06/07/17 08:10; Start 06/07/17 at 09:00 Potassium Chloride (Klor-Con) 20 meq 1X ONCE PO Last administered on 06/06/17 20:23; Start 06/06/17 at 20:00; Stop 06/06/17 at 20:01; Status DC Active Scripts Active Metformin Hcl 500 Mg Tablet 500 Mg PO BIDWMEALS 90 Days Albuterol Sulfate Neb Soln (Albuterol Sulfate) 2.5 Mg/3 Ml Vial.neb 2.5 Mg NEB PRN Q6HRS PRN 30 Days Reported Meclizine Hcl 25 Mg Tablet 1 Tab PO QID PRN LAST DOSE GIVEN: DATE: TIME: NEXT DOSE DUE: DATE: TIME: Trelegy Ellipta 100-62.5-25 (Fluticasone/Umeclidin/Vilanter) 1 Each Blst.w.dev 1 Each IH DAILY Gabapentin 300 Mg Capsule 300 Mg PO QID Primidone 50 Mg Tablet 125 Mg PO QID Astepro (Azelastine Hcl) 205.5 Mcg/0.137 Ml [place].pump 2 Spr NS BID PRN LAST DOSE GIVEN: DATE: TODAY TIME: AM NEXT DOSE DUE: DATE: TODAY TIME: PM Ventolin Hfa Inhaler (Albuterol Sulfate) 18 Gm Hfa.aer.ad 1 Puff IH PRN QID PRN LAST DOSE GIVEN: NOT GIVEN THIS ADMISSION NEXT DOSE DUE: DATE: TODAY TIME: IF NEEDED Fetzima (Levomilnacipran Hydrochloride) 80 Mg Cap.sa.24h 80 Mg PO DAILY LAST DOSE GIVEN: DATE: TODAY TIME: AM NEXT DOSE DUE: DATE: TOMORROW TIME: AM Remeron (Mirtazapine) 45 Mg Tablet 0.5 Tab PO QHS LAST DOSE GIVEN: DATE: YESTER TIME: AT BEDTIME NEXT DOSE DUE: DATE: TODAY TIME: AT BEDTIME Furosemide 80 Mg Tablet 80 Mg PO DAILY LAST DOSE GIVEN: DATE: TODAY TIME: AM NEXT DOSE DUE: DATE: TOMORROW TIME: AM Abilify (Aripiprazole) 5 Mg Tablet 1 Tab PO QHS LAST DOSE GIVEN: DATE: YESTERDAY TIME: AT BEDTIME NEXT DOSE DUE: DATE: TODAY TIME: AT BEDTIME Hydrocodone-Apap 7.5-325 (Hydrocodone Bit/Acetaminophen) 1 Each Tablet 1-2 Tab PO PRN Q6HRS PRN LAST DOSE GIVEN: NOT GIVEN TODAY NEXT DOSE DUE: DATE: TODAY TIME: IF NEEDED TIME: IF AND WHEN NEEDED Klor-Con M20 (Potassium Chloride) 20 Meq Tab.er.prt 1 Tab PO BID LAST DOSE GIVEN: DATE: TODAY TIME: AM NEXT DOSE DUE: DATE: TODAY TIME: PM Montelukast Sodium Tablet (Montelukast Sodium) 10 Mg Tablet 10 Mg PO QHS LAST DOSE GIVEN: DATE: YESTER TIME: AT BEDTIME NEXT DOSE DUE: DATE: TODAY TIME: AT BEDTIME Protonix (Pantoprazole Sodium) 40 Mg Tablet.dr 40 Mg PO DAILYAC LAST DOSE GIVEN: DATE: TIME: BEFORE BREAKFAST NEXT DOSE DUE: DATE: TOMORROW TIME: BEFORE BREAKFAST Dilantin (Phenytoin Sodium Extended) 100 Mg Capsule 400 Mg PO QHS LAST DOSE GIVEN: DATE: YESTER TIME: AT BEDTIME NEXT DOSE DUE: DATE: TODAY TIME: AT BEDTIME Aspirin 81 Mg Tab.chew 81 Mg PO DAILY LAST DOSE GIVEN: DATE: TODAY TIME: AM NEXT DOSE DUE: DATE: TOMORR TIME: AM Zetia (Ezetimibe) 10 Mg Tablet 10 Mg PO QHS LAST DOSE GIVEN: DATE: YES TIME: AT BEDTIME NEXT DOSE DUE: DATE: TIME: AT BEDTIME Diazepam 5 Mg Tablet 7.5 Mg PO QHS LAST DOSE GIVEN: DATE: YESTER TIME: AT BEDTIME NEXT DOSE DUE: DATE: TODAY TIME: AT BEDTIME Diazepam 5 Mg Tablet 2.5 Mg PO TIDPC LAST DOSE GIVEN: DATE: TODAY TIME: AM NEXT DOSE DUE: DATE: TODAY TIME: AFTERNOON I have reviewed the current psychotropics carefully including drug interactions. Risk benefit ratio favors no change other than as noted in my dictated progress note. Diagnosis: Problems: (1) Major depressive disorder, recurrent episode (2) Anxiety disorder SMILEY BETH MD Jun 07, 2017 18:26
[2017-06-07] MEDS: EZETIMIBE 10 MG TABLET PO SCH (19:55)
[2017-06-07] MEDS: MONTELUKAST 10 MG TABLET. PO SCH (19:56)
[2017-06-07] MEDS: PHENYTOIN SODIUM EXTENDED 100 MG CAPSULE PO SCH (19:56)
[2017-06-07] MEDS: ARIPiprazole 5 MG TABLET PO SCH (19:57)
[2017-06-07] MEDS: MIRTAZAPINE 15 MG TABLET PO SCH (19:57)
--- NOTE | 2017-06-07 23:27 | PDOC ---
Exam Note: Morales Note: Please also refer to the separate dictated note~for this date of service dictated separately.~Patient seen individually. Discussed the patient with Nursing staff reviewed the chart.~Reviewed interim history and current functioning. Reviewed vital signs,~Labs/ Radiology~and current medications noted below. Continue current treatment with the changes noted in the dictated addendum note Assessment: Vital Signs: Vital Signs Date Time Temp Pulse Resp B/P (MAP) Pulse Ox O2 Delivery O2 Flow Rate FiO2 06/07/17 21:10 95 Room Air 06/07/17 11:31 16 06/07/17 05:50 97.6 94 125/74 (91) 06/06/17 20:45 0.0 I&O Intake and Output 06/07/17 07:00 Intake Total 720 ml Output Total 1 ml Balance 719 ml Intake Oral 720 ml Output Urine Total 1 ml # Voids 5 # Bowel Movements 3 Labs: Laboratory Tests Test 06/07/17 06:28 06/07/17 07:46 06/07/17 11:46 06/07/17 16:24 Sodium Level 140 mmol/L (136-145) Potassium Level 3.7 mmol/L (3.5-5.1) Chloride Level 102 mmol/L (98-107) Carbon Dioxide Level 22 mmol/L (21-32) Anion Gap 16 (6-14) H Blood Urea Nitrogen 13 mg/dL (7-20) # Creatinine 0.8 mg/dL (0.6-1.0) Estimated GFR (Cockcroft-Gault) 71.8 Glucose Level 134 mg/dL (70-99) H Calcium Level 9.0 mg/dL (8.5-10.1) Ammonia 67 mcmol/L (11-34) H Glucose (Fingerstick) 132 mg/dL (70-99) H 140 mg/dL (70-99) H 119 mg/dL (70-99) H Test 06/07/17 19:23 Glucose (Fingerstick) 156 mg/dL (70-99) H Current Medications: Meds: Current Medications Albuterol Sulfate (Ventolin) 2.5 mg PRN Q6HRS PRN NEB SHORTNESS OF BREATH; Start 06/06/17 at 11:45 Albuterol Sulfate (Ventolin Hfa) 1 puff PRN QID PRN IH FOR ASTHMA; Start at 11:45; Status UNV Aripiprazole (Abilify) 5 mg QHS PO Last administered on 06/07/17 19:57; Start 06/06/17 at 21:00 Aspirin (Children'S Aspirin) 81 mg DAILY PO Last administered on 06/07/17 08:10 ; Start 06/07/17 at 09:00 Diazepam (Valium) 2.5 mg TIDPC PO Last administered on 06/06/17 16:49; Start at 12:30; Stop 06/06/17 at 18:30; Status DC Diazepam (Valium) 7.5 mg QHS PO Last administered on 06/07/17 19:57; Start 06/06 at 21:00 EZETIMIBE (Zetia) 10 mg QHS PO Last administered on 06/07/17 19:55; Start at 21:00 Furosemide (Lasix) 80 mg DAILY PO Last administered on 06/07/17 08:10; Start at 09:00 Gabapentin (Neurontin) 300 mg QID PO Last administered on 06/07/17 19:56; Start 06/06/17 at 13:00 Acetaminophen/ Hydrocodone Bitart (Lortab 7.5/325) 1 tab PRN Q6HRS PRN PO PAIN Last administered on 06/07/17 11:31; Start 06/06/17 at 11:45 Metformin HCl (Glucophage) 500 mg BIDWMEALS PO Last administered on 06/07/17 16 :42; Start 06/06/17 at 17:00 Montelukast Sodium (Singulair) 10 mg QHS PO Last administered on 06/07/17 19:56 ; Start 06/06/17 at 21:00 Pantoprazole Sodium (Protonix) 40 mg DAILYAC PO Last administered on 06/07/17 08:11; Start 06/07/17 at 07:30 Phenytoin Sodium (Dilantin) 400 mg QHS PO Last administered on 06/07/17 19:56; Start 06/06/17 at 21:00 Potassium Chloride (Klor-Con) 20 meq BID PO Last administered on 06/07/17 19:56 ; Start 06/06/17 at 21:00 Primidone (Mysoline) 125 mg QID PO Last administered on 06/07/17 19:59; Start 06/06/17 at 13:00 Azelastine HCl (Astelin) 2 spray BID NS Last administered on 06/07/17 19:55; Start 06/06/17 at 21:00 Non-Formulary Medication (Fluticasone/ Umeclidin/ Vilanter (Trelegy Ellipta 100- 62.5-25)) 1 each DAILY IH Last administered on 06/07/17 08:12; Start 06/07/17 at 09:00 Non-Formulary Medication (Levomilnacipran Hydrochloride (Fetzima)) 80 mg DAILY PO Last administered on 06/07/17 08:13; Start 06/07/17 at 09:00 Meclizine HCl (Antivert) 25 mg PRN QID PRN PO DIZZINESS; Start 06/06/17 at 13:00 Mirtazapine (Remeron) 22.5 mg QHS PO Last administered on 06/07/17 19:57; Start 06/06/17 at 21:00 Insulin Aspart (NovoLOG) 0-7 UNITS QIDACHS SQ ; Start 06/06/17 at 12:00 Dextrose 12.5 gm PRN Q15MIN PRN IV SEE COMMENTS; Start 06/06/17 at 12:00 Lactulose (Lactulose) 20 gm QID PO Last administered on 06/07/17 19:58; Start 06/06/17 at 17:00 Albuterol/ Ipratropium (Duoneb) 3 ml RTQID NEB Last administered on 06/07/17 21 :09; Start 06/06/17 at 16:45 Diazepam (Valium) 2.5 mg BIDAFTMEAL PO Last administered on 06/07/17 16:42; Start 06/07/17 at 09:00 Duloxetine HCl (Cymbalta) 30 mg DAILY PO Last administered on 06/07/17 08:10; Start 06/07/17 at 09:00 Potassium Chloride (Klor-Con) 20 meq 1X ONCE PO Last administered on 06/06/17 20:23; Start 06/06/17 at 20:00; Stop 06/06/17 at 20:01; Status DC Active Scripts Active Metformin Hcl 500 Mg Tablet 500 Mg PO BIDWMEALS 90 Days Albuterol Sulfate Neb Soln (Albuterol Sulfate) 2.5 Mg/3 Ml Vial.neb 2.5 Mg NEB PRN Q6HRS PRN 30 Days Reported Meclizine Hcl 25 Mg Tablet 1 Tab PO QID PRN LAST DOSE GIVEN: DATE: TIME: NEXT DOSE DUE: DATE: TIME: Trelegy Ellipta 100-62.5-25 (Fluticasone/Umeclidin/Vilanter) 1 Each Blst.w.dev 1 Each IH DAILY Gabapentin 300 Mg Capsule 300 Mg PO QID Primidone 50 Mg Tablet 125 Mg PO QID Astepro (Azelastine Hcl) 205.5 Mcg/0.137 Ml [place].pump 2 Spr NS BID PRN LAST DOSE GIVEN: DATE: TODAY TIME: AM NEXT DOSE DUE: DATE: TODAY TIME: PM Ventolin Hfa Inhaler (Albuterol Sulfate) 18 Gm Hfa.aer.ad 1 Puff IH PRN QID PRN LAST DOSE GIVEN: NOT GIVEN THIS ADMISSION NEXT DOSE DUE: DATE: TODAY TIME: IF NEEDED Fetzima (Levomilnacipran Hydrochloride) 80 Mg Cap.sa.24h 80 Mg PO DAILY LAST DOSE GIVEN: DATE: TODAY TIME: AM NEXT DOSE DUE: DATE: TOMORROW TIME: AM Remeron (Mirtazapine) 45 Mg Tablet 0.5 Tab PO QHS LAST DOSE GIVEN: DATE: YESTER TIME: AT BEDTIME NEXT DOSE DUE: DATE: TODAY TIME: AT BEDTIME Furosemide 80 Mg Tablet 80 Mg PO DAILY LAST DOSE GIVEN: DATE: TODAY TIME: AM NEXT DOSE DUE: DATE: TOMORROW TIME: AM Abilify (Aripiprazole) 5 Mg Tablet 1 Tab PO QHS LAST DOSE GIVEN: DATE: YESTERDAY TIME: AT BEDTIME NEXT DOSE DUE: DATE: TODAY TIME: AT BEDTIME Hydrocodone-Apap 7.5-325 (Hydrocodone Bit/Acetaminophen) 1 Each Tablet 1-2 Tab PO PRN Q6HRS PRN LAST DOSE GIVEN: NOT GIVEN TODAY NEXT DOSE DUE: DATE: TODAY TIME: IF NEEDED TIME: IF AND WHEN NEEDED Klor-Con M20 (Potassium Chloride) 20 Meq Tab.er.prt 1 Tab PO BID LAST DOSE GIVEN: DATE: TODAY TIME: AM NEXT DOSE DUE: DATE: TODAY TIME: PM Montelukast Sodium Tablet (Montelukast Sodium) 10 Mg Tablet 10 Mg PO QHS LAST DOSE GIVEN: DATE: YESTER TIME: AT BEDTIME NEXT DOSE DUE: DATE: TODAY TIME: AT BEDTIME Protonix (Pantoprazole Sodium) 40 Mg Tablet.dr 40 Mg PO DAILYAC LAST DOSE GIVEN: DATE: TIME: BEFORE BREAKFAST NEXT DOSE DUE: DATE: TOMORROW TIME: BEFORE BREAKFAST Dilantin (Phenytoin Sodium Extended) 100 Mg Capsule 400 Mg PO QHS LAST DOSE GIVEN: DATE: YESTER TIME: AT BEDTIME NEXT DOSE DUE: DATE: TODAY TIME: AT BEDTIME Aspirin 81 Mg Tab.chew 81 Mg PO DAILY LAST DOSE GIVEN: DATE: TODAY TIME: AM NEXT DOSE DUE: DATE: TOMORR TIME: AM Zetia (Ezetimibe) 10 Mg Tablet 10 Mg PO QHS LAST DOSE GIVEN: DATE: YES TIME: AT BEDTIME NEXT DOSE DUE: DATE: TIME: AT BEDTIME Diazepam 5 Mg Tablet 7.5 Mg PO QHS LAST DOSE GIVEN: DATE: YESTER TIME: AT BEDTIME NEXT DOSE DUE: DATE: TODAY TIME: AT BEDTIME Diazepam 5 Mg Tablet 2.5 Mg PO TIDPC LAST DOSE GIVEN: DATE: TODAY TIME: AM NEXT DOSE DUE: DATE: TODAY TIME: AFTERNOON I have reviewed the current psychotropics carefully including drug interactions. Risk benefit ratio favors no change other than as noted in my dictated progress note. Diagnosis: Problems: (1) Major depressive disorder, recurrent episode (2) Anxiety disorder SMILEY BETH MD Jun 07, 2017 23:26
[2017-06-08] MEDS: IPRATRPIUM/ALBUTEROL 0.5/2.5MG 3 ML NEBU. NEB SCH ×4 (05:35→21:01)
[2017-06-08 06:05] VITALS: BP 148/83
[2017-06-08 06:44] LABS: CREATININE 0.9 mg/dL (0.6-1.0); GFR 62.6; POTASSIUM 3.1 mmol/L (3.5-5.1)
[2017-06-08] MEDS: INSULIN ASPART 300 UNITS/3 ML INSULN.PEN SQ SCH ×4 (07:30→21:00)
[2017-06-08] MEDS: metFORMIN 500 MG TABLET PO SCH ×2 (08:50→17:27)
[2017-06-08] MEDS: PANTOPRAZOLE 40 MG TABLET. PO SCH (08:50)
[2017-06-08] MEDS: TRELEGY ELLIPTA INHALER IH SCH (08:51)
[2017-06-08] MEDS: AZELASTINE NASAL SPRAY 30ML BOTTLE. NS SCH ×2 (08:51→21:00)
[2017-06-08] MEDS: DULoxetine HCL 30 MG CAPSULE.DR PO SCH (08:52)
[2017-06-08] MEDS: ASPIRIN 81 MG TAB.CHEW PO SCH (08:52)
[2017-06-08] MEDS: FETZIMA 80 MG PO SCH (08:52)
[2017-06-08] MEDS: LACTULOSE 20 GM/30 ML SOLUTION. PO SCH ×4 (08:53→21:30)
[2017-06-08] MEDS: POTASSIUM CHLORIDE 20 MEQ TABLET.ER. PO SCH ×2 (08:53→21:32)
[2017-06-08] MEDS: PRIMIDONE 50 MG TABLET PO SCH ×4 (08:53→21:35)
[2017-06-08] MEDS: GABAPENTIN 300 MG CAPSULE. PO SCH ×4 (08:53→21:33)
[2017-06-08] MEDS: FUROSEMIDE 80 MG TABLET PO SCH (08:53)
[2017-06-08] MEDS: diazePAM 5 MG TABLET PO SCH ×3 (08:54→21:33)
[2017-06-08 18:30] VITALS: BP 144/78
--- NOTE | 2017-06-08 20:02 | PDOC ---
Exam Note: Morales Note: Please also refer to the separate dictated note~for this date of service dictated separately.~Patient seen individually. Discussed the patient with Nursing staff reviewed the chart.~Reviewed interim history and current functioning. Reviewed vital signs,~Labs/ Radiology~and current medications noted below. Continue current treatment with the changes noted in the dictated addendum note Assessment: Vital Signs: Vital Signs Date Time Temp Pulse Resp B/P (MAP) Pulse Ox O2 Delivery O2 Flow Rate FiO2 06/08/17 18:30 98.1 102 22 144/78 (100) 96 Room Air 06/08/17 08:00 2.0 I&O Intake and Output 06/08/17 07:00 Intake Total 960 ml Balance 960 ml Intake Oral 960 ml # Voids 3 # Bowel Movements 3 Labs: Laboratory Tests Test 06/08/17 06:06 06/08/17 07:58 06/08/17 11:47 06/08/17 16:54 Sodium Level 138 mmol/L (136-145) Potassium Level 3.1 mmol/L (3.5-5.1) L Chloride Level 103 mmol/L (98-107) Carbon Dioxide Level 23 mmol/L (21-32) Anion Gap 12 (6-14) Blood Urea Nitrogen 12 mg/dL (7-20) Creatinine 0.9 mg/dL (0.6-1.0) Estimated GFR (Cockcroft-Gault) 62.6 Glucose Level 131 mg/dL (70-99) H Calcium Level 9.0 mg/dL (8.5-10.1) Ammonia 59 mcmol/L (11-34) H Glucose (Fingerstick) 137 mg/dL (70-99) H 97 mg/dL (70-99) 126 mg/dL (70-99) H Test 06/08/17 19:27 Glucose (Fingerstick) 139 mg/dL (70-99) H Current Medications: Meds: Current Medications Albuterol Sulfate (Ventolin) 2.5 mg PRN Q6HRS PRN NEB SHORTNESS OF BREATH; Start 06/06/17 at 11:45 Albuterol Sulfate (Ventolin Hfa) 1 puff PRN QID PRN IH FOR ASTHMA; Start at 11:45; Status UNV Aripiprazole (Abilify) 5 mg QHS PO Last administered on 06/07/17 19:57; Start 06/06/17 at 21:00 Aspirin (Children'S Aspirin) 81 mg DAILY PO Last administered on 06/08/17 08:52 ; Start 06/07/17 at 09:00 Diazepam (Valium) 2.5 mg TIDPC PO Last administered on 06/06/17 16:49; Start at 12:30; Stop 06/06/17 at 18:30; Status DC Diazepam (Valium) 7.5 mg QHS PO Last administered on 06/07/17 19:57; Start 06/06 at 21:00 EZETIMIBE (Zetia) 10 mg QHS PO Last administered on 06/07/17 19:55; Start at 21:00 Furosemide (Lasix) 80 mg DAILY PO Last administered on 06/08/17 08:53; Start at 09:00 Gabapentin (Neurontin) 300 mg QID PO Last administered on 06/08/17 17:27; Start 06/06/17 at 13:00 Acetaminophen/ Hydrocodone Bitart (Lortab 7.5/325) 1 tab PRN Q6HRS PRN PO PAIN Last administered on 06/07/17 11:31; Start 06/06/17 at 11:45 Metformin HCl (Glucophage) 500 mg BIDWMEALS PO Last administered on 06/08/17 17 :27; Start 06/06/17 at 17:00 Montelukast Sodium (Singulair) 10 mg QHS PO Last administered on 06/07/17 19:56 ; Start 06/06/17 at 21:00 Pantoprazole Sodium (Protonix) 40 mg DAILYAC PO Last administered on 06/08/17 08:50; Start 06/07/17 at 07:30 Phenytoin Sodium (Dilantin) 400 mg QHS PO Last administered on 06/07/17 19:56; Start 06/06/17 at 21:00 Potassium Chloride (Klor-Con) 20 meq BID PO Last administered on 06/08/17 08:53 ; Start 06/06/17 at 21:00 Primidone (Mysoline) 125 mg QID PO Last administered on 06/08/17 17:27; Start 06/06/17 at 13:00 Azelastine HCl (Astelin) 2 spray BID NS Last administered on 06/08/17 08:51; Start 06/06/17 at 21:00 Non-Formulary Medication (Fluticasone/ Umeclidin/ Vilanter (Trelegy Ellipta 100- 62.5-25)) 1 each DAILY IH Last administered on 06/08/17 08:51; Start 06/07/17 at 09:00 Non-Formulary Medication (Levomilnacipran Hydrochloride (Fetzima)) 80 mg DAILY PO Last administered on 06/08/17 08:52; Start 06/07/17 at 09:00 Meclizine HCl (Antivert) 25 mg PRN QID PRN PO DIZZINESS; Start 06/06/17 at 13:00 Mirtazapine (Remeron) 22.5 mg QHS PO Last administered on 06/07/17 19:57; Start 06/06/17 at 21:00 Insulin Aspart (NovoLOG) 0-7 UNITS QIDACHS SQ ; Start 06/06/17 at 12:00 Dextrose 12.5 gm PRN Q15MIN PRN IV SEE COMMENTS; Start 06/06/17 at 12:00 Lactulose (Lactulose) 20 gm QID PO Last administered on 06/08/17 17:27; Start 06/06/17 at 17:00 Albuterol/ Ipratropium (Duoneb) 3 ml RTQID NEB Last administered on 06/08/17 16 :40; Start 06/06/17 at 16:45 Diazepam (Valium) 2.5 mg BIDAFTMEAL PO Last administered on 06/08/17 17:27; Start 06/07/17 at 09:00 Duloxetine HCl (Cymbalta) 30 mg DAILY PO Last administered on 06/08/17 08:52; Start 06/07/17 at 09:00 Potassium Chloride (Klor-Con) 20 meq 1X ONCE PO Last administered on 06/06/17 20:23; Start 06/06/17 at 20:00; Stop 06/06/17 at 20:01; Status DC Active Scripts Active Metformin Hcl 500 Mg Tablet 500 Mg PO BIDWMEALS 90 Days Albuterol Sulfate Neb Soln (Albuterol Sulfate) 2.5 Mg/3 Ml Vial.neb 2.5 Mg NEB PRN Q6HRS PRN 30 Days Reported Meclizine Hcl 25 Mg Tablet 1 Tab PO QID PRN LAST DOSE GIVEN: DATE: TIME: NEXT DOSE DUE: DATE: TIME: Trelegy Ellipta 100-62.5-25 (Fluticasone/Umeclidin/Vilanter) 1 Each Blst.w.dev 1 Each IH DAILY Gabapentin 300 Mg Capsule 300 Mg PO QID Primidone 50 Mg Tablet 125 Mg PO QID Astepro (Azelastine Hcl) 205.5 Mcg/0.137 Ml [place].pump 2 Spr NS BID PRN LAST DOSE GIVEN: DATE: TODAY TIME: AM NEXT DOSE DUE: DATE: TODAY TIME: PM Ventolin Hfa Inhaler (Albuterol Sulfate) 18 Gm Hfa.aer.ad 1 Puff IH PRN QID PRN LAST DOSE GIVEN: NOT GIVEN THIS ADMISSION NEXT DOSE DUE: DATE: TODAY TIME: IF NEEDED Fetzima (Levomilnacipran Hydrochloride) 80 Mg Cap.sa.24h 80 Mg PO DAILY LAST DOSE GIVEN: DATE: TODAY TIME: AM NEXT DOSE DUE: DATE: TOMORROW TIME: AM Remeron (Mirtazapine) 45 Mg Tablet 0.5 Tab PO QHS LAST DOSE GIVEN: DATE: YESTERDAY TIME: AT BEDTIME NEXT DOSE DUE: DATE: TODAY TIME: AT BEDTIME Furosemide 80 Mg Tablet 80 Mg PO DAILY LAST DOSE GIVEN: DATE: TODAY TIME: AM NEXT DOSE DUE: DATE: TOMORROW TIME: AM Abilify (Aripiprazole) 5 Mg Tablet 1 Tab PO QHS LAST DOSE GIVEN: DATE: YESTERDAY TIME: AT BEDTIME NEXT DOSE DUE: DATE: TODAY TIME: AT BEDTIME Hydrocodone-Apap 7.5-325 (Hydrocodone Bit/Acetaminophen) 1 Each Tablet 1-2 Tab PO PRN Q6HRS PRN LAST DOSE GIVEN: NOT GIVEN TODAY NEXT DOSE DUE: DATE: TODAY TIME: IF NEEDED TIME: IF AND WHEN NEEDED Klor-Con M20 (Potassium Chloride) 20 Meq Tab.er.prt 1 Tab PO BID LAST DOSE GIVEN: DATE: TODAY TIME: AM NEXT DOSE DUE: DATE: TODAY TIME: PM Montelukast Sodium Tablet (Montelukast Sodium) 10 Mg Tablet 10 Mg PO QHS LAST DOSE GIVEN: DATE: YESTER TIME: AT BEDTIME NEXT DOSE DUE: DATE: TODAY TIME: AT BEDTIME Protonix (Pantoprazole Sodium) 40 Mg Tablet.dr 40 Mg PO DAILYAC LAST DOSE GIVEN: DATE: TODAY TIME: BEFORE BREAKFAST NEXT DOSE DUE: DATE: TOMORROW TIME: BEFORE BREAKFAST Dilantin (Phenytoin Sodium Extended) 100 Mg Capsule 400 Mg PO QHS LAST DOSE GIVEN: DATE: YES TIME: AT BEDTIME NEXT DOSE DUE: DATE: TODAY TIME: AT BEDTIME Aspirin 81 Mg Tab.chew 81 Mg PO DAILY LAST DOSE GIVEN: DATE: TODAY TIME: AM NEXT DOSE DUE: DATE: TOMORR TIME: AM Zetia (Ezetimibe) 10 Mg Tablet 10 Mg PO QHS LAST DOSE GIVEN: DATE: YES TIME: AT BEDTIME NEXT DOSE DUE: DATE: TIME: AT BEDTIME Diazepam 5 Mg Tablet 7.5 Mg PO QHS LAST DOSE GIVEN: DATE: YES TIME: AT BEDTIME NEXT DOSE DUE: DATE: TIME: AT BEDTIME Diazepam 5 Mg Tablet 2.5 Mg PO TIDPC LAST DOSE GIVEN: DATE: TODAY TIME: AM NEXT DOSE DUE: DATE: TODAY TIME: AFTERNOON I have reviewed the current psychotropics carefully including drug interactions. Risk benefit ratio favors no change other than as noted in my dictated progress note. Diagnosis: Problems: (1) Major depressive disorder, recurrent episode (2) Anxiety disorder SMILEY BETH MD Jun 08, 2017 20:01
[2017-06-08] MEDS: EZETIMIBE 10 MG TABLET PO SCH (21:31)
[2017-06-08] MEDS: MIRTAZAPINE 15 MG TABLET PO SCH (21:31)
[2017-06-08] MEDS: PHENYTOIN SODIUM EXTENDED 100 MG CAPSULE PO SCH (21:32)
[2017-06-08] MEDS: MONTELUKAST 10 MG TABLET. PO SCH (21:33)
[2017-06-08] MEDS: ARIPiprazole 5 MG TABLET PO SCH (21:33)
[2017-06-09] MEDS: IPRATRPIUM/ALBUTEROL 0.5/2.5MG 3 ML NEBU. NEB SCH ×4 (05:32→20:32)
[2017-06-09 05:57] VITALS: BP 121/75
[2017-06-09] MEDS: INSULIN ASPART 300 UNITS/3 ML INSULN.PEN SQ SCH ×4 (07:30→20:19)
[2017-06-09] MEDS: PANTOPRAZOLE 40 MG TABLET. PO SCH (07:53)
[2017-06-09] MEDS: metFORMIN 500 MG TABLET PO SCH ×2 (07:54→17:11)
[2017-06-09] MEDS ORDERED: POTASSIUM CHLORIDE 20 MEQ TABLET.ER. PO ONE (08:30)
[2017-06-09] MEDS ORDERED: POTASSIUM CHLORIDE 20 MEQ/15 ML ORAL LIQUID. FT PRN (08:30)
[2017-06-09] MEDS ORDERED: MAGNESIUM OXIDE 400 MG TABLET PO SCH (08:30)
[2017-06-09] MEDS: TRELEGY ELLIPTA INHALER IH SCH (08:59)
[2017-06-09] MEDS: FETZIMA 80 MG PO SCH (09:00)
[2017-06-09] MEDS: DULoxetine HCL 30 MG CAPSULE.DR PO SCH (09:00)
[2017-06-09] MEDS: ASPIRIN 81 MG TAB.CHEW PO SCH (09:00)
[2017-06-09] MEDS: AZELASTINE NASAL SPRAY 30ML BOTTLE. NS SCH ×2 (09:00→20:14)
[2017-06-09] MEDS: FUROSEMIDE 80 MG TABLET PO SCH (09:01)
[2017-06-09] MEDS: GABAPENTIN 300 MG CAPSULE. PO SCH ×4 (09:01→20:17)
[2017-06-09] MEDS: LACTULOSE 20 GM/30 ML SOLUTION. PO SCH ×4 (09:01→20:15)
[2017-06-09] MEDS: diazePAM 5 MG TABLET PO SCH ×3 (09:02→20:17)
[2017-06-09] MEDS: PRIMIDONE 50 MG TABLET PO SCH ×4 (09:03→20:19)
[2017-06-09] MEDS: POTASSIUM CHLORIDE 20 MEQ TABLET.ER. PO SCH ×2 (11:02→20:18)
[2017-06-09] MEDS ORDERED: POTASSIUM CHLORIDE 20 MEQ TABLET.ER. PO PRN (15:15)
--- NOTE | 2017-06-09 15:55 | PDOC ---
Exam Note: Morales Note: Please also refer to the separate dictated note~for this date of service dictated separately.~Patient seen individually. Discussed the patient with Nursing staff reviewed the chart.~Reviewed interim history and current functioning. Reviewed vital signs,~Labs/ Radiology~and current medications noted below. Continue current treatment with the changes noted in the dictated addendum note Assessment: Vital Signs: Vital Signs Date Time Temp Pulse Resp B/P (MAP) Pulse Ox O2 Delivery O2 Flow Rate FiO2 06/09/17 08:00 Room Air 06/09/17 05:57 97.4 85 22 121/75 (90) 97 06/08/17 20:20 2.0 I&O Intake and Output 06/09/17 07:00 Intake Total 1120 ml Output Total 1 ml Balance 1119 ml Intake Oral 1120 ml Stool Total 1 ml # Voids 6 Labs: Laboratory Tests Test 06/08/17 16:54 06/08/17 19:27 06/09/17 07:33 06/09/17 11:28 Glucose (Fingerstick) 126 mg/dL (70-99) H 139 mg/dL (70-99) H 115 mg/dL (70-99) H 158 mg/dL (70-99) H Current Medications: Meds: Current Medications Albuterol Sulfate (Ventolin) 2.5 mg PRN Q6HRS PRN NEB SHORTNESS OF BREATH; Start 06/06/17 at 11:45 Albuterol Sulfate (Ventolin Hfa) 1 puff PRN QID PRN IH FOR ASTHMA; Start at 11:45; Status UNV Aripiprazole (Abilify) 5 mg QHS PO Last administered on 06/08/17at 21:33; Start 06/06/17 at 21:00 Aspirin (Children'S Aspirin) 81 mg DAILY PO Last administered on 06/09/17at 09:00 ; Start 06/07/17 at 09:00 Diazepam (Valium) 2.5 mg TIDPC PO Last administered on 06/06/17at 16:49; Start at 12:30; Stop 06/06/17 at 18:30; Status DC Diazepam (Valium) 7.5 mg QHS PO Last administered on 06/08/17at 21:33; Start 06/06 at 21:00 EZETIMIBE (Zetia) 10 mg QHS PO Last administered on 06/08/17 21:31; Start at 21:00 Furosemide (Lasix) 80 mg DAILY PO Last administered on 06/09/17 09:01; Start at 09:00 Gabapentin (Neurontin) 300 mg QID PO Last administered on 06/09/17 12:36; Start 06/06/17 at 13:00 Acetaminophen/ Hydrocodone Bitart (Lortab 7.5/325) 1 tab PRN Q6HRS PRN PO PAIN Last administered on 06/07/17 11:31; Start 06/06/17 at 11:45 Metformin HCl (Glucophage) 500 mg BIDWMEALS PO Last administered on 06/09/17 07 :54; Start 06/06/17 at 17:00 Montelukast Sodium (Singulair) 10 mg QHS PO Last administered on 06/08/17 21:33 ; Start 06/06/17 at 21:00 Pantoprazole Sodium (Protonix) 40 mg DAILYAC PO Last administered on 06/09/17 07:53; Start 06/07/17 at 07:30 Phenytoin Sodium (Dilantin) 400 mg QHS PO Last administered on 06/08/17 21:32; Start 06/06/17 at 21:00 Potassium Chloride (Klor-Con) 20 meq BID PO Last administered on 06/09/17 11:02 ; Start 06/06/17 at 21:00 Primidone (Mysoline) 125 mg QID PO Last administered on 06/09/17 12:36; Start 06/06/17 at 13:00 Azelastine HCl (Astelin) 2 spray BID NS Last administered on 06/09/17 09:00; Start 06/06/17 at 21:00 Non-Formulary Medication (Fluticasone/ Umeclidin/ Vilanter (Trelegy Ellipta 100- 62.5-25)) 1 each DAILY IH Last administered on 06/09/17 08:59; Start 06/07/17 at 09:00 Non-Formulary Medication (Levomilnacipran Hydrochloride (Fetzima)) 80 mg DAILY PO Last administered on 06/09/17 09:00; Start 06/07/17 at 09:00 Meclizine HCl (Antivert) 25 mg PRN QID PRN PO DIZZINESS; Start 06/06/17 at 13:00 Mirtazapine (Remeron) 22.5 mg QHS PO Last administered on 06/08/17at 21:31; Start 06/06/17 at 21:00 Insulin Aspart (NovoLOG) 0-7 UNITS QIDACHS SQ Last administered on 06/09/17at 12: 11; Start 06/06/17 at 12:00 Dextrose 12.5 gm PRN Q15MIN PRN IV SEE COMMENTS; Start 06/06/17 at 12:00 Lactulose (Lactulose) 20 gm QID PO Last administered on 06/09/17at 12:36; Start 06/06/17 at 17:00 Albuterol/ Ipratropium (Duoneb) 3 ml RTQID NEB Last administered on 06/09/17at 05 :32; Start 06/06/17 at 16:45 Diazepam (Valium) 2.5 mg BIDAFTMEAL PO Last administered on 06/09/17at 09:02; Start 06/07/17 at 09:00 Duloxetine HCl (Cymbalta) 30 mg DAILY PO Last administered on 06/09/17at 09:00; Start 06/07/17 at 09:00 Potassium Chloride (Klor-Con) 20 meq 1X ONCE PO Last administered on 06/06/17at 20:23; Start 06/06/17 at 20:00; Stop 06/06/17 at 20:01; Status DC Potassium Chloride (Klor-Con) 40 meq 1X ONCE PO Last administered on 06/09/17at 09:01; Start 06/09/17 at 08:30; Stop 06/09/17 at 08:37; Status DC Potassium Chloride (KCl Oral Soln) 40 meq PRN Q4HRS PRN FT ELECTROLYTE REPLACEMENT; Start 06/09/17 at 08:30 Magnesium Oxide (Magnesium Oxide) 400 mg PRN BID PO ; Start 06/09/17 at 08:30; Stop 06/12/17 at 08:31 Potassium Chloride (Klor-Con) 40 meq PRN 1X PRN PO LOW POTASSIUM; Start at 15:15 Active Scripts Active Metformin Hcl 500 Mg Tablet 500 Mg PO BIDWMEALS 90 Days Albuterol Sulfate Neb Soln (Albuterol Sulfate) 2.5 Mg/3 Ml Vial.neb 2.5 Mg NEB PRN Q6HRS PRN 30 Days Reported Meclizine Hcl 25 Mg Tablet 1 Tab PO QID PRN LAST DOSE GIVEN: DATE: TIME: NEXT DOSE DUE: DATE: TIME: Trelegy Ellipta 100-62.5-25 (Fluticasone/Umeclidin/Vilanter) 1 Each Blst.w.dev 1 Each IH DAILY Gabapentin 300 Mg Capsule 300 Mg PO QID Primidone 50 Mg Tablet 125 Mg PO QID Astepro (Azelastine Hcl) 205.5 Mcg/0.137 Ml [place].pump 2 Spr NS BID PRN LAST DOSE GIVEN: DATE: TODAY TIME: AM NEXT DOSE DUE: DATE: TODAY TIME: PM Ventolin Hfa Inhaler (Albuterol Sulfate) 18 Gm Hfa.aer.ad 1 Puff IH PRN QID PRN LAST DOSE GIVEN: NOT GIVEN THIS ADMISSION NEXT DOSE DUE: DATE: TODAY TIME: IF NEEDED Fetzima (Levomilnacipran Hydrochloride) 80 Mg Cap.sa.24h 80 Mg PO DAILY LAST DOSE GIVEN: DATE: TODAY TIME: AM NEXT DOSE DUE: DATE: TOMORROW TIME: AM Remeron (Mirtazapine) 45 Mg Tablet 0.5 Tab PO QHS LAST DOSE GIVEN: DATE: YESTERDAY TIME: AT BEDTIME NEXT DOSE DUE: DATE: TODAY TIME: AT BEDTIME Furosemide 80 Mg Tablet 80 Mg PO DAILY LAST DOSE GIVEN: DATE: TODAY TIME: AM NEXT DOSE DUE: DATE: TOMORROW TIME: AM Abilify (Aripiprazole) 5 Mg Tablet 1 Tab PO QHS LAST DOSE GIVEN: DATE: YESTERDAY TIME: AT BEDTIME NEXT DOSE DUE: DATE: TODAY TIME: AT BEDTIME Hydrocodone-Apap 7.5-325 (Hydrocodone Bit/Acetaminophen) 1 Each Tablet 1-2 Tab PO PRN Q6HRS PRN LAST DOSE GIVEN: NOT GIVEN TODAY NEXT DOSE DUE: DATE: TODAY TIME: IF NEEDED TIME: IF AND WHEN NEEDED Klor-Con M20 (Potassium Chloride) 20 Meq Tab.er.prt 1 Tab PO BID LAST DOSE GIVEN: DATE: TODAY TIME: AM NEXT DOSE DUE: DATE: TODAY TIME: PM Montelukast Sodium Tablet (Montelukast Sodium) 10 Mg Tablet 10 Mg PO QHS LAST DOSE GIVEN: DATE: YESTER TIME: AT BEDTIME NEXT DOSE DUE: DATE: TODAY TIME: AT BEDTIME Protonix (Pantoprazole Sodium) 40 Mg Tablet.dr 40 Mg PO DAILYAC LAST DOSE GIVEN: DATE: TODAY TIME: BEFORE BREAKFAST NEXT DOSE DUE: DATE: TOMORROW TIME: BEFORE BREAKFAST Dilantin (Phenytoin Sodium Extended) 100 Mg Capsule 400 Mg PO QHS LAST DOSE GIVEN: DATE: YESTER TIME: AT BEDTIME NEXT DOSE DUE: DATE: TODAY TIME: AT BEDTIME Aspirin 81 Mg Tab.chew 81 Mg PO DAILY LAST DOSE GIVEN: DATE: TODAY TIME: AM NEXT DOSE DUE: DATE: TOMORROW TIME: AM Zetia (Ezetimibe) 10 Mg Tablet 10 Mg PO QHS LAST DOSE GIVEN: DATE: YESTER TIME: AT BEDTIME NEXT DOSE DUE: DATE: TODAY TIME: AT BEDTIME Diazepam 5 Mg Tablet 7.5 Mg PO QHS LAST DOSE GIVEN: DATE: YESTER TIME: AT BEDTIME NEXT DOSE DUE: DATE: TODAY TIME: AT BEDTIME Diazepam 5 Mg Tablet 2.5 Mg PO TIDPC LAST DOSE GIVEN: DATE: TODAY TIME: AM NEXT DOSE DUE: DATE: TODAY TIME: AFTERNOON I have reviewed the current psychotropics carefully including drug interactions. Risk benefit ratio favors no change other than as noted in my dictated progress note. Diagnosis: Problems: (1) Major depressive disorder, recurrent episode (2) Anxiety disorder SMILEY BETH MD Jun 09, 2017 15:55
[2017-06-09 18:18] VITALS: BP 120/71
--- NOTE | 2017-06-09 18:52 | PN ---
DATE: 06/08/2017 This note covers the elements not covered in my initial note, 06/08/2017. SUBJECTIVE: Overall, the patient is doing better, still feels less anxious. Mood is improved. Sleeping better. MENTAL STATUS EXAM: Reasonably oriented. Speech is coherent, abstraction fair, computation impaired, language function intact. Mood and affect is improved. No suicidal or homicidal ideation. IMPRESSION: Major depressive disorder; anxiety disorder, unspecified. Rest unchanged. PLAN: Continue current psychotropics as mentioned in my initial note, may need to increase Cymbalta, but perhaps the another day or so. MAN Rivka BETH MD DR: CHRIS/elisa JOB#: [id number] / [id number]
--- NOTE | 2017-06-09 19:02 | PN ---
DATE: 06/07/2017 PSYCHIATRIC PROGRESS NOTE This late entry 06/07/2017 covers elements, not covered in my initial note of 06/07/2017. SUBJECTIVE: I met with the patient individually in her room. Per nursing report, the patient has been doing better, less anxious. Subjectively, she states she is feeling better, slept better at night and despite reduction of Valium, her anxiety is better. She is less sedated as well with reduction of Valium. She does have some shortness of breath. No CV, , GI, or eye system symptoms on review. MENTAL STATUS EXAM: The patient readily recognized me. Speech is coherent, abstraction fair, computation somewhat impaired, language function intact. Mood and affect is improved. She is less tearful. LABORATORY DATA: Reviewed. IMPRESSION: Major depressive disorder, in partial remission; anxiety disorder, unspecified. PLAN: Continue current psychotropics. We may need to increase the Cymbalta and may need to reduce the Valium further. SMILEY BETH MD DR: CHRIS/elisa JOB#: [id number] / [id number]
[2017-06-09] MEDS: PHENYTOIN SODIUM EXTENDED 100 MG CAPSULE PO SCH (20:16)
[2017-06-09] MEDS: MONTELUKAST 10 MG TABLET. PO SCH (20:17)
[2017-06-09] MEDS: EZETIMIBE 10 MG TABLET PO SCH (20:17)
[2017-06-09] MEDS: ARIPiprazole 5 MG TABLET PO SCH (20:17)
[2017-06-09] MEDS: MIRTAZAPINE 15 MG TABLET PO SCH (20:18)
--- NOTE | 2017-06-10 02:04 | PN ---
DATE: 06/09/2017 This note covers elements not covered in my initial note 06/09/2017. Met with the patient evening of 06/09/2017 and also with her . SUBJECTIVE: The patient states she has been more depressed, anxious, apprehensive. She states she is concerned about her serum ammonia level not being correct and unsure of what other medical problems she is having. She states she is apprehensive they would not be able to make the planned vacation trip and they will not be getting a refund for the air fair and hotel booking. She is quite tearful, anxious, labile discussing all of this. REVIEW OF SYSTEMS: Ambulation impaired. No CV, , pulmonary, eye system symptoms on review. MENTAL STATUS EXAM: Reasonably oriented. Speech is coherent, abstraction fair, computation impaired, language function intact, attention span short. Mood and affect depressed, anxious. LABORATORY DATA: Reviewed. No active suicidal or homicidal ideation. IMPRESSION: Major depressive disorder, recurrent; anxiety disorder, unspecified. PLAN: Starting tomorrow, we will increase the Cymbalta to 50 mg a day. Maintain Abilify and Valium at the current dosage. We will make further adjustments as clinically indicated. Discussed all of this with her . MAN Rivka BETH MD DR: CHRIS/elisa JOB#: [id number] / [id number]
[2017-06-10] MEDS: IPRATRPIUM/ALBUTEROL 0.5/2.5MG 3 ML NEBU. NEB SCH ×4 (05:21→21:25)
[2017-06-10 06:10] VITALS: BP 127/78
[2017-06-10 06:58] LABS: CALCIUM 8.7 mg/dL (8.5-10.1); CREATININE 0.8 mg/dL (0.6-1.0); GFR 71.8; MAGNESIUM 1.5 mg/dL (1.8-2.4); POTASSIUM 3.4 mmol/L (3.5-5.1)
[2017-06-10] MEDS: INSULIN ASPART 300 UNITS/3 ML INSULN.PEN SQ SCH ×4 (07:30→21:00)
[2017-06-10] MEDS: PANTOPRAZOLE 40 MG TABLET. PO SCH (09:11)
[2017-06-10] MEDS: metFORMIN 500 MG TABLET PO SCH ×2 (09:12→17:41)
[2017-06-10] MEDS: TRELEGY ELLIPTA INHALER IH SCH (09:13)
[2017-06-10] MEDS: AZELASTINE NASAL SPRAY 30ML BOTTLE. NS SCH ×2 (09:13→22:22)
[2017-06-10] MEDS: ASPIRIN 81 MG TAB.CHEW PO SCH (09:14)
[2017-06-10] MEDS: FETZIMA 80 MG PO SCH (09:14)
[2017-06-10] MEDS: DULoxetine HCL 30 MG CAPSULE.DR PO SCH (09:15)
[2017-06-10] MEDS: FUROSEMIDE 80 MG TABLET PO SCH (09:15)
[2017-06-10] MEDS: POTASSIUM CHLORIDE 20 MEQ TABLET.ER. PO SCH ×2 (09:15→22:20)
[2017-06-10] MEDS: LACTULOSE 20 GM/30 ML SOLUTION. PO SCH ×10 (09:16→21:00)
[2017-06-10] MEDS: PRIMIDONE 50 MG TABLET PO SCH ×4 (09:16→22:25)
[2017-06-10] MEDS: diazePAM 5 MG TABLET PO SCH ×3 (09:16→22:20)
[2017-06-10] MEDS: GABAPENTIN 300 MG CAPSULE. PO SCH ×4 (09:16→22:19)
[2017-06-10] MEDS: DULoxetine HCL 20 MG CAPSULE.DR PO SCH (11:21)
--- NOTE | 2017-06-10 18:12 | PDOC ---
Exam Note: Morales Note: Please also refer to the separate dictated note~for this date of service dictated separately.~Patient seen individually. Discussed the patient with Nursing staff reviewed the chart.~Reviewed interim history and current functioning. Reviewed vital signs,~Labs/ Radiology~and current medications noted below. Continue current treatment with the changes noted in the dictated addendum note Assessment: Vital Signs: Vital Signs Date Time Temp Pulse Resp B/P (MAP) Pulse Ox O2 Delivery O2 Flow Rate FiO2 06/10/17 08:00 Room Air 2.0 06/10/17 06:10 97.3 88 18 127/78 (94) 95 I&O Intake and Output 06/10/17 07:00 Intake Total 1320 ml Balance 1320 ml Intake Oral 1320 ml # Voids 4 Labs: Laboratory Tests Test 06/09/17 19:27 06/10/17 06:38 06/10/17 07:25 06/10/17 11:38 Glucose (Fingerstick) 113 mg/dL (70-99) H 99 mg/dL (70-99) 138 mg/dL (70-99) H Sodium Level 142 mmol/L (136-145) Potassium Level 3.4 mmol/L (3.5-5.1) L Chloride Level 102 mmol/L (98-107) Carbon Dioxide Level 27 mmol/L (21-32) Anion Gap 13 (6-14) Blood Urea Nitrogen 10 mg/dL (7-20) Creatinine 0.8 mg/dL (0.6-1.0) Estimated GFR (Cockcroft-Gault) 71.8 Glucose Level 110 mg/dL (70-99) H Calcium Level 8.7 mg/dL (8.5-10.1) Magnesium Level 1.5 mg/dL (1.8-2.4) L Ammonia 40 mcmol/L (11-34) H Test 06/10/17 16:29 Glucose (Fingerstick) 103 mg/dL (70-99) H Current Medications: Meds: Current Medications Albuterol Sulfate (Ventolin) 2.5 mg PRN Q6HRS PRN NEB SHORTNESS OF BREATH; Start 06/06/17 at 11:45 Albuterol Sulfate (Ventolin Hfa) 1 puff PRN QID PRN IH FOR ASTHMA; Start at 11:45; Status UNV Aripiprazole (Abilify) 5 mg QHS PO Last administered on 06/09/17 20:17; Start 06/06/17 at 21:00 Aspirin (Children'S Aspirin) 81 mg DAILY PO Last administered on 06/10/17 09:14 ; Start 06/07/17 at 09:00 Diazepam (Valium) 2.5 mg TIDPC PO Last administered on 06/06/17 16:49; Start at 12:30; Stop 06/06/17 at 18:30; Status DC Diazepam (Valium) 7.5 mg QHS PO Last administered on 06/09/17 20:17; Start 06/06 at 21:00 EZETIMIBE (Zetia) 10 mg QHS PO Last administered on 06/09/17 20:17; Start at 21:00 Furosemide (Lasix) 80 mg DAILY PO Last administered on 06/10/17 09:15; Start at 09:00 Gabapentin (Neurontin) 300 mg QID PO Last administered on 06/10/17 17:41; Start 06/06/17 at 13:00 Acetaminophen/ Hydrocodone Bitart (Lortab 7.5/325) 1 tab PRN Q6HRS PRN PO PAIN Last administered on 06/07/17 11:31; Start 06/06/17 at 11:45 Metformin HCl (Glucophage) 500 mg BIDWMEALS PO Last administered on 06/10/17 17 :41; Start 06/06/17 at 17:00 Montelukast Sodium (Singulair) 10 mg QHS PO Last administered on 06/09/17 20:17 ; Start 06/06/17 at 21:00 Pantoprazole Sodium (Protonix) 40 mg DAILYAC PO Last administered on 06/10/17 09:11; Start 06/07/17 at 07:30 Phenytoin Sodium (Dilantin) 400 mg QHS PO Last administered on 06/09/17 20:16; Start 06/06/17 at 21:00 Potassium Chloride (Klor-Con) 20 meq BID PO Last administered on 06/10/17 09:15 ; Start 06/06/17 at 21:00 Primidone (Mysoline) 125 mg QID PO Last administered on 06/10/17 17:41; Start 06/06/17 at 13:00 Azelastine HCl (Astelin) 2 spray BID NS Last administered on 06/10/17 09:13; Start 06/06/17 at 21:00 Non-Formulary Medication (Fluticasone/ Umeclidin/ Vilanter (Trelegy Ellipta 100- 62.5-25)) 1 each DAILY IH Last administered on 06/10/17 09:13; Start 06/07/17 at 09:00 Non-Formulary Medication (Levomilnacipran Hydrochloride (Fetzima)) 80 mg DAILY PO Last administered on 06/10/17 09:14; Start 06/07/17 at 09:00 Meclizine HCl (Antivert) 25 mg PRN QID PRN PO DIZZINESS; Start 06/06/17 at 13:00 Mirtazapine (Remeron) 22.5 mg QHS PO Last administered on 06/09/17 20:18; Start 06/06/17 at 21:00 Insulin Aspart (NovoLOG) 0-7 UNITS QIDACHS SQ Last administered on 06/09/17 12: 11; Start 06/06/17 at 12:00 Dextrose 12.5 gm PRN Q15MIN PRN IV SEE COMMENTS; Start 06/06/17 at 12:00 Lactulose (Lactulose) 20 gm QID PO Last administered on 06/10/17 17:41; Start 06/06/17 at 17:00 Albuterol/ Ipratropium (Duoneb) 3 ml RTQID NEB Last administered on 06/10/17 05 :21; Start 06/06/17 at 16:45 Diazepam (Valium) 2.5 mg BIDAFTMEAL PO Last administered on 06/10/17 17:44; Start 06/07/17 at 09:00 Duloxetine HCl (Cymbalta) 30 mg DAILY PO Last administered on 06/09/17 09:00; Start 06/07/17 at 09:00; Stop 06/09/17 at 21:11; Status DC Potassium Chloride (Klor-Con) 20 meq 1X ONCE PO Last administered on 06/06/17 20:23; Start 06/06/17 at 20:00; Stop 06/06/17 at 20:01; Status DC Potassium Chloride (Klor-Con) 40 meq 1X ONCE PO Last administered on 06/09/17at 09:01; Start 06/09/17 at 08:30; Stop 06/09/17 at 08:37; Status DC Potassium Chloride (KCl Oral Soln) 40 meq PRN Q4HRS PRN FT ELECTROLYTE REPLACEMENT; Start 06/09/17 at 08:30 Magnesium Oxide (Magnesium Oxide) 400 mg PRN BID PO ; Start 06/09/17 at 08:30; Stop 06/12/17 at 08:31 Potassium Chloride (Klor-Con) 40 meq PRN 1X PRN PO LOW POTASSIUM; Start at 15:15 Duloxetine HCl (Cymbalta) 30 mg DAILY PO Last administered on 06/10/17at 09:15; Start 06/10/17 at 09:00 Duloxetine HCl (Cymbalta) 20 mg DAILY PO Last administered on 06/10/17at 11:21; Start 06/10/17 at 09:00 Lactulose (Lactulose) 20 gm Q2H PO Last administered on 06/10/17at 15:10; Start 06/10/17 at 11:00; Stop 06/11/17 at 09:01 Active Scripts Active Metformin Hcl 500 Mg Tablet 500 Mg PO BIDWMEALS 90 Days Albuterol Sulfate Neb Soln (Albuterol Sulfate) 2.5 Mg/3 Ml Vial.neb 2.5 Mg NEB PRN Q6HRS PRN 30 Days Reported Meclizine Hcl 25 Mg Tablet 1 Tab PO QID PRN LAST DOSE GIVEN: DATE: TIME: NEXT DOSE DUE: DATE: TIME: [place] Ellipta 100-62.5-25 (Fluticasone/Umeclidin/Vilanter) 1 Each Blst.w.dev 1 Each IH DAILY Gabapentin 300 Mg Capsule 300 Mg PO QID Primidone 50 Mg Tablet 125 Mg PO QID Astepro (Azelastine Hcl) 205.5 Mcg/0.137 Ml [place].pump 2 Spr NS BID PRN LAST DOSE GIVEN: DATE: TODAY TIME: AM NEXT DOSE DUE: DATE: TODAY TIME: PM Ventolin Hfa Inhaler (Albuterol Sulfate) 18 Gm Hfa.aer.ad 1 Puff IH PRN QID PRN LAST DOSE GIVEN: NOT GIVEN THIS ADMISSION NEXT DOSE DUE: DATE: TODAY TIME: IF NEEDED Fetzima (Levomilnacipran Hydrochloride) 80 Mg Cap.sa.24h 80 Mg PO DAILY LAST DOSE GIVEN: DATE: TODAY TIME: AM NEXT DOSE DUE: DATE: TOMORR TIME: AM Remeron (Mirtazapine) 45 Mg Tablet 0.5 Tab PO QHS LAST DOSE GIVEN: DATE: YESTER TIME: AT BEDTIME NEXT DOSE DUE: DATE: TIME: AT BEDTIME Furosemide 80 Mg Tablet 80 Mg PO DAILY LAST DOSE GIVEN: DATE: TODAY TIME: AM NEXT DOSE DUE: DATE: ORR TIME: AM Abilify (Aripiprazole) 5 Mg Tablet 1 Tab PO QHS LAST DOSE GIVEN: DATE: YES TIME: AT BEDTIME NEXT DOSE DUE: DATE: TODAY TIME: AT BEDTIME Hydrocodone-Apap 7.5-325 (Hydrocodone Bit/Acetaminophen) 1 Each Tablet 1-2 Tab PO PRN Q6HRS PRN LAST DOSE GIVEN: NOT GIVEN TODAY NEXT DOSE DUE: DATE: TODAY TIME: IF NEEDED TIME: IF AND WHEN NEEDED Klor-Con M20 (Potassium Chloride) 20 Meq Tab.er.prt 1 Tab PO BID LAST DOSE GIVEN: DATE: TIME: AM NEXT DOSE DUE: DATE: TODAY TIME: PM Montelukast Sodium Tablet (Montelukast Sodium) 10 Mg Tablet 10 Mg PO QHS LAST DOSE GIVEN: DATE: YES TIME: AT BEDTIME NEXT DOSE DUE: DATE: TIME: AT BEDTIME Protonix (Pantoprazole Sodium) 40 Mg Tablet.dr 40 Mg PO DAILYAC LAST DOSE GIVEN: DATE: TODAY TIME: BEFORE BREAKFAST NEXT DOSE DUE: DATE: ORR TIME: BEFORE BREAKFAST Dilantin (Phenytoin Sodium Extended) 100 Mg Capsule 400 Mg PO QHS LAST DOSE GIVEN: DATE: YESTER TIME: AT BEDTIME NEXT DOSE DUE: DATE: TODAY TIME: AT BEDTIME Aspirin 81 Mg Tab.chew 81 Mg PO DAILY LAST DOSE GIVEN: DATE: TODAY TIME: AM NEXT DOSE DUE: DATE: TOMORR TIME: AM Zetia (Ezetimibe) 10 Mg Tablet 10 Mg PO QHS LAST DOSE GIVEN: DATE: YESTER TIME: AT BEDTIME NEXT DOSE DUE: DATE: TIME: AT BEDTIME Diazepam 5 Mg Tablet 7.5 Mg PO QHS LAST DOSE GIVEN: DATE: YESTERDAY TIME: AT BEDTIME NEXT DOSE DUE: DATE: TODAY TIME: AT BEDTIME Diazepam 5 Mg Tablet 2.5 Mg PO TIDPC LAST DOSE GIVEN: DATE: TODAY TIME: AM NEXT DOSE DUE: DATE: TODAY TIME: AFTERNOON I have reviewed the current psychotropics carefully including drug interactions. Risk benefit ratio favors no change other than as noted in my dictated progress note. Diagnosis: Problems: (1) Major depressive disorder, recurrent episode (2) Anxiety disorder SMILEY BETH MD Jun 10, 2017 18:12
[2017-06-10 19:09] VITALS: BP 128/79
[2017-06-10] MEDS: EZETIMIBE 10 MG TABLET PO SCH (22:18)
[2017-06-10] MEDS: PHENYTOIN SODIUM EXTENDED 100 MG CAPSULE PO SCH (22:18)
[2017-06-10] MEDS: MIRTAZAPINE 15 MG TABLET PO SCH (22:33)
[2017-06-10] MEDS: MONTELUKAST 10 MG TABLET. PO SCH (22:40)
--- NOTE | 2017-06-11 01:23 | PN ---
DATE: 06/10/2017 This note covers the elements not covered in my initial note 06/10/2017. SUBJECTIVE: I met with the patient evening of 06/10/2017. Discussed with GEOFF James, reviewed the chart. I previously received information from Tessa Burton RN, director foundation indicating the patient had active suicidal ideation today. Reportedly, the patient ambulated out of the hospital with a walker and was not able to be found by staff. Security was notified and found the patient had walked down the back entrance and onto [address]. The patient found by the nursing [employer] supervisor walking off the sidewalk. Said she was walking to [place], but it was too cold. Since returning, she has been expressing suicidal ideation to staff and stated she would "jump out of the window." She has been placed on q. minute checks and her room moved closer to the nursing station to observe her. As I met with her, she denied active suicidal ideation, but remains extremely emotional, sad, tearful, labile. REVIEW OF SYSTEMS: Ambulation impaired with walker. Some shortness of breath. No CV, , eye, ENT system symptoms on review. MENTAL STATUS EXAM: Reasonably oriented. Speech is coherent, abstraction fair, computation impaired, language function intact. Mood and affect is quite labile, tearful, anxious. Denies active suicidal ideation, no homicidal ideation, but has passive suicidal ideation. IMPRESSION: Major depressive disorder versus bipolar 1 disorder, depressed versus mixed with psychotic features; anxiety disorder, unspecified. PLAN: Change the Abilify to Seroquel 25 mg 3 times a day 9:00 a.m., 1:00 p.m., 5:00 p.m. as a mood stabilizer and to augment the Cymbalta, which is 50 mg a day. We may consider adding Depakote as a mood stabilizer as well depending on how she does with the Seroquel. If mood lability persists, she may need transfer for inpatient psychiatric care, but for now we will see how she does with these changes. SMIELY BETH MD DR: CHRIS/elisa JOB#: [id number] / [id number]
[2017-06-11] MEDS: IPRATRPIUM/ALBUTEROL 0.5/2.5MG 3 ML NEBU. NEB SCH ×4 (05:41→21:21)
[2017-06-11 05:46] VITALS: BP_SYST 117; BP_SYST 137; BP_DIAS 69; BP_DIAS 75
[2017-06-11] MEDS: INSULIN ASPART 300 UNITS/3 ML INSULN.PEN SQ SCH ×4 (07:30→21:00)
[2017-06-11] MEDS: QUEtiapine 25 MG TABLET. PO SCH ×4 (07:30→17:31)
[2017-06-11] MEDS: metFORMIN 500 MG TABLET PO SCH ×2 (08:48→17:31)
[2017-06-11] MEDS: ASPIRIN 81 MG TAB.CHEW PO SCH (08:49)
[2017-06-11] MEDS: diazePAM 5 MG TABLET PO SCH ×3 (08:51→21:37)
[2017-06-11] MEDS: DULoxetine HCL 20 MG CAPSULE.DR PO SCH ×2 (08:51→09:00)
[2017-06-11] MEDS: FUROSEMIDE 80 MG TABLET PO SCH (08:52)
[2017-06-11] MEDS: POTASSIUM CHLORIDE 20 MEQ TABLET.ER. PO SCH ×2 (08:53→21:33)
[2017-06-11] MEDS: GABAPENTIN 300 MG CAPSULE. PO SCH ×4 (08:53→21:34)
[2017-06-11] MEDS: TRELEGY ELLIPTA INHALER IH SCH (09:00)
[2017-06-11] MEDS: FETZIMA 80 MG PO SCH (09:00)
[2017-06-11] MEDS: PANTOPRAZOLE 40 MG TABLET. PO SCH (09:35)
[2017-06-11] MEDS: AZELASTINE NASAL SPRAY 30ML BOTTLE. NS SCH ×2 (09:37→21:00)
[2017-06-11] MEDS: PRIMIDONE 50 MG TABLET PO SCH ×4 (09:39→21:45)
[2017-06-11] MEDS: DULoxetine HCL 30 MG CAPSULE.DR PO SCH (10:20)
[2017-06-11] MEDS: LACTULOSE 20 GM/30 ML SOLUTION. PO SCH ×4 (10:20→21:32)
--- NOTE | 2017-06-11 18:22 | PDOC ---
Exam Note: Morales Note: Please also refer to the separate dictated note~for this date of service dictated separately.~Patient seen individually. Discussed the patient with Nursing staff reviewed the chart.~Reviewed interim history and current functioning. Reviewed vital signs,~Labs/ Radiology~and current medications noted below. Continue current treatment with the changes noted in the dictated addendum note Assessment: Vital Signs: Vital Signs Date Time Temp Pulse Resp B/P (MAP) Pulse Ox O2 Delivery O2 Flow Rate FiO2 06/11/17 16:07 91 Room Air 06/11/17 09:00 2.0 06/11/17 05:46 97.4 84 18 117/69 (85) I&O Intake and Output 06/11/17 07:00 Intake Total 1080 ml Balance 1080 ml Intake Oral 1080 ml # Voids 2 # Bowel Movements 1 Labs: Laboratory Tests Test 06/10/17 19:25 06/11/17 07:23 06/11/17 11:38 06/11/17 16:29 Glucose (Fingerstick) 144 mg/dL (70-99) H 88 mg/dL (70-99) 118 mg/dL (70-99) H 89 mg/dL (70-99) Current Medications: Meds: Current Medications Albuterol Sulfate (Ventolin) 2.5 mg PRN Q6HRS PRN NEB SHORTNESS OF BREATH; Start 06/06/17 at 11:45 Albuterol Sulfate (Ventolin Hfa) 1 puff PRN QID PRN IH FOR ASTHMA; Start at 11:45; Status UNV Aripiprazole (Abilify) 5 mg QHS PO Last administered on 06/09/17at 20:17; Start 06/06/17 at 21:00; Stop 06/10/17 at 18:52; Status DC Aspirin (Children'S Aspirin) 81 mg DAILY PO Last administered on 06/11/17at 08: 49; Start 06/07/17 at 09:00 Diazepam (Valium) 2.5 mg TIDPC PO Last administered on 06/06/17at 16:49; Start at 12:30; Stop 06/06/17 at 18:30; Status DC Diazepam (Valium) 7.5 mg QHS PO Last administered on 06/10/17at 22:20; Start 06/06 at 21:00 EZETIMIBE (Zetia) 10 mg QHS PO Last administered on 06/10/17 22:18; Start at 21:00 Furosemide (Lasix) 80 mg DAILY PO Last administered on 06/11/17 08:52; Start 06/07/17 at 09:00 Gabapentin (Neurontin) 300 mg QID PO Last administered on 06/11/17 17:32; Start 06/06/17 at 13:00 Acetaminophen/ Hydrocodone Bitart (Lortab 7.5/325) 1 tab PRN Q6HRS PRN PO PAIN Last administered on 06/07/17 11:31; Start 06/06/17 at 11:45 Metformin HCl (Glucophage) 500 mg BIDWMEALS PO Last administered on 06/11/17 17:31; Start 06/06/17 at 17:00 Montelukast Sodium (Singulair) 10 mg QHS PO Last administered on 06/10/17 22:40 ; Start 06/06/17 at 21:00 Pantoprazole Sodium (Protonix) 40 mg DAILYAC PO Last administered on 06/11/17 09:35; Start 06/07/17 at 07:30 Phenytoin Sodium (Dilantin) 400 mg QHS PO Last administered on 06/10/17 22:18; Start 06/06/17 at 21:00 Potassium Chloride (Klor-Con) 20 meq BID PO Last administered on 06/11/17 08: 53; Start 06/06/17 at 21:00 Primidone (Mysoline) 125 mg QID PO Last administered on 06/11/17 17:32; Start 06/06/17 at 13:00 Azelastine HCl (Astelin) 2 spray BID NS Last administered on 06/11/17 09:37; Start 06/06/17 at 21:00 Non-Formulary Medication (Fluticasone/ Umeclidin/ Vilanter (Trelegy Ellipta 100- 62.5-25)) 1 each DAILY IH Last administered on 06/11/17 09:00; Start 06/07/17 at 09:00 Non-Formulary Medication (Levomilnacipran Hydrochloride (Fetzima)) 80 mg DAILY PO Last administered on 06/11/17 09:00; Start 06/07/17 at 09:00 Meclizine HCl (Antivert) 25 mg PRN QID PRN PO DIZZINESS; Start 06/06/17 at 13:00 Mirtazapine (Remeron) 22.5 mg QHS PO Last administered on 06/10/17 22:33; Start 06/06/17 at 21:00 Insulin Aspart (NovoLOG) 0-7 UNITS QIDACHS SQ Last administered on 06/09/17 12: 11; Start 06/06/17 at 12:00 Dextrose 12.5 gm PRN Q15MIN PRN IV SEE COMMENTS; Start 06/06/17 at 12:00 Lactulose (Lactulose) 20 gm QID PO Last administered on 06/11/17 17:32; Start 06/06/17 at 17:00 Albuterol/ Ipratropium (Duoneb) 3 ml RTQID NEB Last administered on 06/11/17 16:07; Start 06/06/17 at 16:45 Diazepam (Valium) 2.5 mg BIDAFTMEAL PO Last administered on 06/11/17 17:33; Start 06/07/17 at 09:00 Duloxetine HCl (Cymbalta) 30 mg DAILY PO Last administered on 06/09/17 09:00; Start 06/07/17 at 09:00; Stop 06/09/17 at 21:11; Status DC Potassium Chloride (Klor-Con) 20 meq 1X ONCE PO Last administered on 06/06/17at 20:23; Start 06/06/17 at 20:00; Stop 06/06/17 at 20:01; Status DC Potassium Chloride (Klor-Con) 40 meq 1X ONCE PO Last administered on 06/09/17 09:01; Start 06/09/17 at 08:30; Stop 06/09/17 at 08:37; Status DC Potassium Chloride (KCl Oral Soln) 40 meq PRN Q4HRS PRN FT ELECTROLYTE REPLACEMENT; Start 06/09/17 at 08:30 Magnesium Oxide (Magnesium Oxide) 400 mg PRN BID PO ; Start 06/09/17 at 08:30; Stop 06/12/17 at 08:31 Potassium Chloride (Klor-Con) 40 meq PRN 1X PRN PO LOW POTASSIUM; Start at 15:15 Duloxetine HCl (Cymbalta) 30 mg DAILY PO Last administered on 06/11/17at 10:20; Start 06/10/17 at 09:00 Duloxetine HCl (Cymbalta) 20 mg DAILY PO Last administered on 06/11/17at 09:00; Start 06/10/17 at 09:00 Lactulose (Lactulose) 20 gm Q2H PO Last administered on 06/10/17at 15:10; Start 06/10/17 at 11:00; Stop 06/10/17 at 23:57; Status DC Quetiapine Fumarate (SEROquel) 25 mg TIDAC PO Last administered on 06/11/17at 17 :31; Start 06/11/17 at 07:30 Active Scripts Active Metformin Hcl 500 Mg Tablet 500 Mg PO BIDWMEALS 90 Days Albuterol Sulfate Neb Soln (Albuterol Sulfate) 2.5 Mg/3 Ml Vial.neb 2.5 Mg NEB PRN Q6HRS PRN 30 Days Reported Meclizine Hcl 25 Mg Tablet 1 Tab PO QID PRN LAST DOSE GIVEN: DATE: TIME: NEXT DOSE DUE: DATE: TIME: Trelegy Ellipta 100-62.5-25 (Fluticasone/Umeclidin/Vilanter) 1 Each Blst.w.dev 1 Each IH DAILY Gabapentin 300 Mg Capsule 300 Mg PO QID Primidone 50 Mg Tablet 125 Mg PO QID Astepro (Azelastine Hcl) 205.5 Mcg/0.137 Ml [place].pump 2 Spr NS BID PRN LAST DOSE GIVEN: DATE: TODAY TIME: AM NEXT DOSE DUE: DATE: TODAY TIME: PM Ventolin Hfa Inhaler (Albuterol Sulfate) 18 Gm Hfa.aer.ad 1 Puff IH PRN QID PRN LAST DOSE GIVEN: NOT GIVEN THIS ADMISSION NEXT DOSE DUE: DATE: TODAY TIME: IF NEEDED Fetzima (Levomilnacipran Hydrochloride) 80 Mg Cap.sa.24h 80 Mg PO DAILY LAST DOSE GIVEN: DATE: TODAY TIME: AM NEXT DOSE DUE: DATE: TOMORROW TIME: AM Remeron (Mirtazapine) 45 Mg Tablet 0.5 Tab PO QHS LAST DOSE GIVEN: DATE: YESTERDAY TIME: AT BEDTIME NEXT DOSE DUE: DATE: TODAY TIME: AT BEDTIME Furosemide 80 Mg Tablet 80 Mg PO DAILY LAST DOSE GIVEN: DATE: TODAY TIME: AM NEXT DOSE DUE: DATE: TOMORROW TIME: AM Abilify (Aripiprazole) 5 Mg Tablet 1 Tab PO QHS LAST DOSE GIVEN: DATE: YESTER TIME: AT BEDTIME NEXT DOSE DUE: DATE: TODAY TIME: AT BEDTIME Hydrocodone-Apap 7.5-325 (Hydrocodone Bit/Acetaminophen) 1 Each Tablet 1-2 Tab PO PRN Q6HRS PRN LAST DOSE GIVEN: NOT GIVEN TODAY NEXT DOSE DUE: DATE: TODAY TIME: IF NEEDED TIME: IF AND WHEN NEEDED Klor-Con M20 (Potassium Chloride) 20 Meq Tab.er.prt 1 Tab PO BID LAST DOSE GIVEN: DATE: TODAY TIME: AM NEXT DOSE DUE: DATE: TODAY TIME: PM Montelukast Sodium Tablet (Montelukast Sodium) 10 Mg Tablet 10 Mg PO QHS LAST DOSE GIVEN: DATE: YES TIME: AT BEDTIME NEXT DOSE DUE: DATE: TODAY TIME: AT BEDTIME Protonix (Pantoprazole Sodium) 40 Mg Tablet.dr 40 Mg PO DAILYAC LAST DOSE GIVEN: DATE: TODAY TIME: BEFORE BREAKFAST NEXT DOSE DUE: DATE: TOMORR TIME: BEFORE BREAKFAST Dilantin (Phenytoin Sodium Extended) 100 Mg Capsule 400 Mg PO QHS LAST DOSE GIVEN: DATE: YES TIME: AT BEDTIME NEXT DOSE DUE: DATE: TODAY TIME: AT BEDTIME Aspirin 81 Mg Tab.chew 81 Mg PO DAILY LAST DOSE GIVEN: DATE: TIME: AM NEXT DOSE DUE: DATE: TOMORR TIME: AM Zetia (Ezetimibe) 10 Mg Tablet 10 Mg PO QHS LAST DOSE GIVEN: DATE: YES TIME: AT BEDTIME NEXT DOSE DUE: DATE: TODAY TIME: AT BEDTIME Diazepam 5 Mg Tablet 7.5 Mg PO QHS LAST DOSE GIVEN: DATE: YES TIME: AT BEDTIME NEXT DOSE DUE: DATE: TODAY TIME: AT BEDTIME Diazepam 5 Mg Tablet 2.5 Mg PO TIDPC LAST DOSE GIVEN: DATE: TODAY TIME: AM NEXT DOSE DUE: DATE: TODAY TIME: AFTERNOON I have reviewed the current psychotropics carefully including drug interactions. Risk benefit ratio favors no change other than as noted in my dictated progress note. Diagnosis: Problems: (1) Major depressive disorder, recurrent episode (2) Anxiety disorder SMILEY BETH MD Jun 11, 2017 18:22
[2017-06-11 18:29] VITALS: BP 115/71
[2017-06-11] MEDS: PHENYTOIN SODIUM EXTENDED 100 MG CAPSULE PO SCH (21:33)
[2017-06-11] MEDS: EZETIMIBE 10 MG TABLET PO SCH (21:34)
[2017-06-11] MEDS: MIRTAZAPINE 15 MG TABLET PO SCH (21:35)
[2017-06-11] MEDS: MONTELUKAST 10 MG TABLET. PO SCH (21:45)
[2017-06-12] MEDS: IPRATRPIUM/ALBUTEROL 0.5/2.5MG 3 ML NEBU. NEB SCH ×2 (05:47→11:11)
[2017-06-12 06:22] VITALS: BP 136/71
[2017-06-12] MEDS: INSULIN ASPART 300 UNITS/3 ML INSULN.PEN SQ SCH ×2 (07:30→11:30)
[2017-06-12] MEDS: DULoxetine HCL 30 MG CAPSULE.DR PO SCH (08:56)
[2017-06-12] MEDS: metFORMIN 500 MG TABLET PO SCH (08:56)
[2017-06-12] MEDS: QUEtiapine 25 MG TABLET. PO SCH ×2 (08:56→11:30)
[2017-06-12] MEDS: ASPIRIN 81 MG TAB.CHEW PO SCH (08:56)
[2017-06-12] MEDS: PANTOPRAZOLE 40 MG TABLET. PO SCH (08:56)
[2017-06-12] MEDS: LACTULOSE 20 GM/30 ML SOLUTION. PO SCH ×2 (08:57→14:30)
[2017-06-12] MEDS: FUROSEMIDE 80 MG TABLET PO SCH (08:57)
[2017-06-12] MEDS: diazePAM 5 MG TABLET PO SCH (08:57)
[2017-06-12] MEDS: DULoxetine HCL 20 MG CAPSULE.DR PO SCH (08:57)
[2017-06-12] MEDS: POTASSIUM CHLORIDE 20 MEQ TABLET.ER. PO SCH (08:57)
[2017-06-12] MEDS: TRELEGY ELLIPTA INHALER IH SCH (09:00)
[2017-06-12] MEDS: GABAPENTIN 300 MG CAPSULE. PO SCH ×2 (09:00→14:30)
[2017-06-12] MEDS: PRIMIDONE 50 MG TABLET PO SCH ×2 (09:04→14:30)
[2017-06-12] MEDS: FETZIMA 80 MG PO SCH (09:04)
[2017-06-12] MEDS: AZELASTINE NASAL SPRAY 30ML BOTTLE. NS SCH (09:06)
[2017-06-12] MEDS ORDERED: LUBIPROSTONE 24 MCG CAPSULE PO SCH (17:00)
[2017-06-12] MEDS ORDERED: DULO30CA2 PO (17:03)
[2017-06-12] MEDS ORDERED: DULO20CA50 PO (17:03)
[2017-06-12] MEDS ORDERED: IPRA3AMP NEB (17:03)
[2017-06-12] MEDS ORDERED: LACT10SO PO (17:03)
[2017-06-12] MEDS ORDERED: LUBI24CA7 PO (17:03)
[2017-06-12] MEDS ORDERED: QUET25TA5 PO (17:03)
--- NOTE | 2017-06-12 19:20 | PN ---
DATE: 06/11/2017 This late entry 06/11/2016 covers elements not covered in my initial note 06/11/2016. SUBJECTIVE: I met with the patient evening of 06/11/2017 in her room and discussed with nursing staff. Overall, the patient has done much better than the day before. She is less labile, anxious. Denies active suicidal ideation and has made no attempts to get away and walked away from the facility like she did the day before. She seems calmer with the change of Abilify to Seroquel. REVIEW OF SYSTEMS: Positive for some shortness of breath, impaired ambulation with walker. No CV, , GI system symptoms on review. MENTAL STATUS EXAM: Reasonably oriented. Speech has some latency, coherent. Abstraction fair, computation somewhat impaired, language function intact. Mood and affect still anxious, labile, but improved. Much more verbal, open, and able to tell me that she feels "better." IMPRESSION: Major depressive disorder with psychotic features; anxiety disorder, unspecified, probable bipolar 1 disorder, depressed. PLAN: Continue the Seroquel and Cymbalta together with the Valium and the rest of her psychotropics. Consider increasing the Seroquel or adding Depakote as a mood stabilizer depending on if there are additional symptoms notable for bipolar disorder or not. MAN Rivka BETH MD DR: CHRIS/elisa JOB#: [id number] / [id number]
== END 2017-06-12 15:00 | DRG 642 ==
LOC: LND 11:08
PROVIDERS: ADMIT Family Medicine; ATTEND Family Medicine
DX: E72.20 Disorder of urea cycle metabolism, unspecified (principal); G93.49 Other encephalopathy; E11.42 Type 2 diabetes mellitus with diabetic polyneuropathy; R45.851 Suicidal ideations; F31.5 Bipolar disorder, current episode depressed, severe, with psychotic features; N39.0 Urinary tract infection, site not specified; F41.9 Anxiety disorder, unspecified; E78.00 Pure hypercholesterolemia, unspecified; K58.9 Irritable bowel syndrome, unspecified; E66.9 Obesity, unspecified; M79.7 Fibromyalgia; M19.90 Unspecified osteoarthritis, unspecified site; M81.0 Age-related osteoporosis without current pathological fracture; Z96.651 Presence of right artificial knee joint; Z95.828 Presence of other vascular implants and grafts; Z90.49 Acquired absence of other specified parts of digestive tract; Z90.710 Acquired absence of both cervix and uterus; Z91.5 Personal history of self-harm; Z85.820 Personal history of malignant melanoma of skin; Z83.3 Family history of diabetes mellitus; Z83.2 Family history of diseases of the blood and blood-forming organs and certain disorders involving the immune mechanism; Z88.0 Allergy status to penicillin; Z88.2 Allergy status to sulfonamides; Z79.899 Other long term (current) drug therapy; Z68.37 Body mass index [BMI] 37.0-37.9, adult; Z98.49 Cataract extraction status, unspecified eye
CPT/HCPCS: 36415; 80048; 82140; 82947; 83735; 94640; J1815; J7620; 97110; 97112; 97116; 97530; 97535

== ENCOUNTER 2017-06-12 15:50 | Inpatient (IN) | payer MEDICARE, BC ==
[~2017-06-12] VITALS: Ht 162.6 cm; Wt 101.2 kg
[2017-06-12 16:14] VITALS: BP 149/84
--- NOTE | 2017-06-12 16:30 | NUR ---
Admission Note with Justification for [facility] for protective oversight for emergency stabilization of acute psychiatric crisis. Pt admitted from: Custodial Mode of arrival: WC Accompanied By: Precipitating behaviors that initiated intake and admission: increasing depression, SI Description of failure of out patient attempts at stabilization in previous setting list behavior and medication trials: Dr. Barron consult and medication changes Behaviors and assessment findings upon admission: Pt noted with intermittent confusion. Calm, flat affect. Pleasant and compliant. Patient arrived on unit with own walker and CPAP machine. Plan: Admit for protective oversight for adjustment and stabilization of medications, behaviors and mood. Intense treatment regimen including groups, medication adjustments, therapy, consistent regimen for ADL's, self care, and sleep hygiene. Daily monitoring by Inpatient staff, Psychiatry, and Medical Physician.
[2017-06-12] MEDS ORDERED: MAGNESIUM HYDROXIDE 2,400 MG/30 ML ORAL.SUSP. PO PRN (16:45)
[2017-06-12] MEDS ORDERED: ALBUTEROL SULFATE 2.5 MG/3 ML NEBU. NEB PRN (16:45)
[2017-06-12] MEDS ORDERED: ALBUTEROL SULFATE 8GM INHALER. IH PRN (16:45)
[2017-06-12] MEDS ORDERED: MAG HYDROX/AL HYDROX/SIMETH 30 ML ORAL.SUSP PO PRN (16:45)
[2017-06-12] MEDS ORDERED: ACETAMINOPHEN 325 MG TABLET PO PRN (16:45)
[2017-06-12] MEDS ORDERED: METHYL SALICYLATE/MENTHOL TOPICAL OINTMENT 29GM TUBE. TP PRN (16:45)
[2017-06-12] MEDS ORDERED: LACT10SO PO (17:03)
[2017-06-12] MEDS ORDERED: DULO20CA50 PO (17:03)
[2017-06-12] MEDS ORDERED: DULO30CA2 PO (17:03)
[2017-06-12] MEDS ORDERED: IPRA3AMP NEB (17:03)
[2017-06-12] MEDS ORDERED: QUET25TA5 PO (17:03)
[2017-06-12] MEDS ORDERED: LUBI24CA7 PO (17:03)
[2017-06-12] MEDS ORDERED: DEXTROSE 50% 25 GM / 50ML DISP.SYRIN. IV PRN (17:15)
[2017-06-12] MEDS ORDERED: MECLIZINE 12.5 MG TABLET. PO PRN (17:30)
[2017-06-12] MEDS: GABAPENTIN 300 MG CAPSULE. PO SCH ×2 (17:40→20:35)
[2017-06-12] MEDS: metFORMIN 500 MG TABLET PO SCH (17:40)
[2017-06-12] MEDS: diazePAM 5 MG TABLET PO SCH ×2 (17:41→20:36)
[2017-06-12] MEDS: PRIMIDONE 50 MG TABLET PO SCH ×2 (17:43→20:35)
--- NOTE | 2017-06-12 18:05 | PDOC ---
Exam Note: Morales Note: Please also refer to the separate dictated note~for this date of service dictated separately.~Patient seen individually. Discussed the patient with Nursing staff reviewed the chart.~Reviewed interim history and current functioning. Reviewed vital signs,~Labs/ Radiology~and current medications noted below. Continue current treatment with the changes noted in the dictated addendum note Assessment: Vital Signs: Vital Signs Date Time Temp Pulse Resp B/P (MAP) Pulse Ox O2 Delivery O2 Flow Rate FiO2 06/12/17 16:14 97.9 91 18 149/84 (105) 97 Labs: Laboratory Tests Test 06/12/17 16:44 Glucose (Fingerstick) 110 mg/dL (70-99) H Current Medications: Meds: Current Medications Acetaminophen (Tylenol) 650 mg PRN Q6HRS PRN PO PAIN / TEMP; Start 06/12/17 at 16:45 Multi-Ingredient Ointment (Analgesic Phelan) 1 tosin PRN QID PRN TP MUSCLE PAIN; Start 06/12/17 at 16:45 Al Hydroxide/Mg Hydroxide (Mylanta Plus Xs) 15 ml PRN AFTMEALHC PRN PO DYSPEPSIA; Start 06/12/17 at 16:45 Magnesium Hydroxide (Milk Of Magnesia) 2,400 mg PRN QHS PRN PO CONSTIPATION; Start 06/12/17 at 16:45 Albuterol Sulfate (Ventolin) 2.5 mg PRN Q6HRS PRN NEB SHORTNESS OF BREATH; Start 06/12/17 at 16:45 Albuterol Sulfate (Ventolin Hfa) 1 puff PRN QID PRN IH FOR ASTHMA; Start at 16:45; Status UNV Aspirin (Children'S Aspirin) 81 mg DAILY PO ; Start 06/13/17 at 09:00 Diazepam (Valium) 2.5 mg BIDAFTMEAL PO Last administered on 06/12/17at 17:41; Start 06/12/17 at 18:00 Diazepam (Valium) 7.5 mg QHS PO ; Start 06/12/17 at 21:00 Duloxetine HCl (Cymbalta) 20 mg DAILY PO ; Start 06/13/17 at 09:00 Duloxetine HCl (Cymbalta) 30 mg DAILY PO ; Start 06/13/17 at 09:00 EZETIMIBE (Zetia) 10 mg QHS PO ; Start 06/12/17 at 21:00 Furosemide (Lasix) 80 mg DAILY PO ; Start 06/13/17 at 09:00 Gabapentin (Neurontin) 300 mg QID PO Last administered on 06/12/17at 17:40; Start 06/12/17 at 17:00 Acetaminophen/ Hydrocodone Bitart (Lortab 7.5/325) 1 tab PRN Q6HRS PRN PO PAIN ; Start 06/12/17 at 16:45 Albuterol/ Ipratropium (Duoneb) 3 ml RTQID NEB ; Start 06/12/17 at 20:00 Lubiprostone (Amitiza) 24 mcg BIDWMEALS PO ; Start 06/12/17 at 17:00 Metformin HCl (Glucophage) 500 mg BIDWMEALS PO Last administered on 06/12/17at 17:40; Start 06/12/17 at 17:00 Montelukast Sodium (Singulair) 10 mg QHS PO ; Start 06/12/17 at 21:00 Pantoprazole Sodium (Protonix) 40 mg DAILYAC PO ; Start 06/13/17 at 07:30 Phenytoin Sodium (Dilantin) 400 mg QHS PO ; Start 06/12/17 at 21:00 Potassium Chloride (Klor-Con) 20 meq BID PO ; Start 06/12/17 at 21:00 Primidone (Mysoline) 125 mg QID PO Last administered on 06/12/17at 17:43; Start 06/12/17 at 17:00 Quetiapine Fumarate (SEROquel) 25 mg TIDAC PO ; Start 06/13/17 at 07:30 Azelastine HCl (Astelin) 2 spray PRN BID PRN NS ALLERGIES; Start 06/12/17 at 21 :00 Non-Formulary Medication (Fluticasone/ Umeclidin/ Vilanter (Trelegy Ellipta 100- 62.5-25)) 1 each DAILY IH ; Start 06/13/17 at 09:00 Lactulose (Lactulose) 20 gm QID PO ; Start 06/12/17 at 21:00 Non-Formulary Medication (Levomilnacipran Hydrochloride (Fetzima)) 80 mg DAILY PO ; Start 06/13/17 at 09:00 Meclizine HCl (Antivert) 25 mg PRN QID PRN PO DIZZINESS; Start 06/12/17 at 17: 30 Mirtazapine (Remeron) 22.5 mg QHS PO ; Start 06/12/17 at 21:00 Insulin Aspart (NovoLOG) 0-7 UNITS QIDACHS SQ ; Start 06/12/17 at 21:00 Dextrose 12.5 gm PRN Q15MIN PRN IV SEE COMMENTS; Start 06/12/17 at 17:15 Active Scripts Active Metformin Hcl 500 Mg Tablet 500 Mg PO BIDWMEALS 90 Days Albuterol Sulfate Neb Soln (Albuterol Sulfate) 2.5 Mg/3 Ml Vial.neb 2.5 Mg NEB PRN Q6HRS PRN 30 Days Reported Cymbalta (Duloxetine Hcl) 30 Mg Capsule.dr 30 Mg PO DAILY Cymbalta (Duloxetine Hcl) 20 Mg Capsule.dr 20 Mg PO DAILY Duoneb 0.5-3(2.5) Mg/3 Ml (Albuterol/Ipratropium) 3 Ml Ampul.neb 3 Ml NEB RTQID Seroquel (Quetiapine Fumarate) 25 Mg Tablet 25 Mg PO TID Amitiza (Lubiprostone) 24 Mcg Capsule 24 Mcg PO BIDWMEALS Lactulose 10 Gm/15 Ml Solution 20 Gm PO QID Meclizine Hcl 25 Mg Tablet 1 Tab PO QID PRN LAST DOSE GIVEN: DATE: TIME: NEXT DOSE DUE: DATE: TIME: Trelegy Ellipta 100-62.5-25 (Fluticasone/Umeclidin/Vilanter) 1 Each Blst.w.dev 1 Each IH DAILY Gabapentin 300 Mg Capsule 300 Mg PO QID Primidone 50 Mg Tablet 125 Mg PO QID Astepro (Azelastine Hcl) 205.5 Mcg/0.137 Ml [place].pump 2 Spr NS BID PRN LAST DOSE GIVEN: DATE: TODAY TIME: AM NEXT DOSE DUE: DATE: TODAY TIME: PM Ventolin Hfa Inhaler (Albuterol Sulfate) 18 Gm Hfa.aer.ad 1 Puff IH PRN QID PRN LAST DOSE GIVEN: NOT GIVEN THIS ADMISSION NEXT DOSE DUE: DATE: TODAY TIME: IF NEEDED Fetzima (Levomilnacipran Hydrochloride) 80 Mg Cap.sa.24h 80 Mg PO DAILY LAST DOSE GIVEN: DATE: TODAY TIME: AM NEXT DOSE DUE: DATE: TIME: AM Remeron (Mirtazapine) 45 Mg Tablet 22.5 Mg PO QHS LAST DOSE GIVEN: DATE: TIME: AT BEDTIME NEXT DOSE DUE: DATE: TIME: AT BEDTIME Furosemide 80 Mg Tablet 80 Mg PO DAILY LAST DOSE GIVEN: DATE: TIME: AM NEXT DOSE DUE: DATE: TIME: AM Abilify (Aripiprazole) 5 Mg Tablet 1 Tab PO QHS LAST DOSE GIVEN: DATE: YES TIME: AT BEDTIME NEXT DOSE DUE: DATE: TODAY TIME: AT BEDTIME Hydrocodone-Apap 7.5-325 (Hydrocodone Bit/Acetaminophen) 1 Each Tablet 1 Tab PO PRN Q6HRS PRN LAST DOSE GIVEN: NOT GIVEN TODAY NEXT DOSE DUE: DATE: TIME: IF NEEDED TIME: IF AND WHEN NEEDED Klor-Con M20 (Potassium Chloride) 20 Meq Tab.er.prt 20 Meq PO BID LAST DOSE GIVEN: DATE: TIME: AM NEXT DOSE DUE: DATE: TIME: PM Montelukast Sodium Tablet (Montelukast Sodium) 10 Mg Tablet 10 Mg PO QHS LAST DOSE GIVEN: DATE: TIME: AT BEDTIME NEXT DOSE DUE: DATE: TIME: AT BEDTIME Protonix (Pantoprazole Sodium) 40 Mg Tablet.dr 40 Mg PO DAILYAC LAST DOSE GIVEN: DATE: TIME: BEFORE BREAKFAST NEXT DOSE DUE: DATE: TIME: BEFORE BREAKFAST Dilantin (Phenytoin Sodium Extended) 100 Mg Capsule 400 Mg PO QHS LAST DOSE GIVEN: DATE: TIME: AT BEDTIME NEXT DOSE DUE: DATE: TIME: AT BEDTIME Aspirin 81 Mg Tab.chew 81 Mg PO DAILY LAST DOSE GIVEN: DATE: TIME: AM NEXT DOSE DUE: DATE: TIME: AM Zetia (Ezetimibe) 10 Mg Tablet 10 Mg PO QHS LAST DOSE GIVEN: DATE: TIME: AT BEDTIME NEXT DOSE DUE: DATE: TIME: AT BEDTIME Diazepam 5 Mg Tablet 7.5 Mg PO QHS LAST DOSE GIVEN: DATE: TIME: AT BEDTIME NEXT DOSE DUE: DATE: TIME: AT BEDTIME Diazepam 5 Mg Tablet 2.5 Mg PO BIDAFTMEAL LAST DOSE GIVEN: DATE: TIME: AM NEXT DOSE DUE: DATE: TODAY TIME: AFTERNOON I have reviewed the current psychotropics carefully including drug interactions. Risk benefit ratio favors no change other than as noted in my dictated progress note. Diagnosis: Problems: (1) Anxiety disorder (2) Bipolar affective, mixed, severe (3) Impulse control disorder (4) Major depressive disorder, recurrent episode (5) Major depressive disorder, recurrent episode (6) Anxiety disorder SMILEY BETH MD Jun 12, 2017 18:05
[2017-06-12] MEDS: LUBIPROSTONE 24 MCG CAPSULE PO SCH (18:20)
--- NOTE | 2017-06-12 18:48 | HP ---
ADMIT DATE: 06/12/2017 This note covers elements, not covered in my initial note for 06/12/2017. I have discussed with nursing staff on 2 or 3 occasions earlier today in preparation of transferring the patient from the correction care unit to this psychiatry service. IDENTIFYING DATA: The patient is a 66-year-old female, transferred from the correction unit, referred by Dr. Porter on account of increasing mood lability, agitation after the patient walked out of the skilled unit 2 days ago on to the streets with a walker, intending to walk to [place] approximately 20 miles away with racing thoughts, marked mood lability, paranoia. With attempted changes in her psychotropics with the reduction of the Valium from 15 mg a day down to 12.5 mg a day, starting her on Cymbalta as an antidepressant and then changing the Abilify to Seroquel as a mood stabilizer. All of this had failed prompting this referral. CHIEF COMPLAINT: "I have been slurring my words. I have difficulty walking." HISTORY OF PRESENT ILLNESS: The patient has a history of symptoms of depression, anxiety, increasing mood swings. She gets paranoid with racing thoughts, sleep and appetite changes. She has been on Valium increasing dosages for some time and intermittently does better for periods of time and then regresses. She had voiced active suicidal ideation. On the skilled unit, for a while was on one-on-one status, but since adding the Seroquel, she denied active suicidal ideation. Positive history of mood swings. PAST PSYCHIATRIC HISTORY: As above. MEDICAL HISTORY: COPD, fibromyalgia, type 2 diabetes mellitus, sleep apnea on CPAP at night, hypertension, hyperlipidemia, GERD, osteoarthritis, chronic pain, seizure disorder, epilepsy, metabolic encephalopathy, and morbid obesity. DRUG ALLERGIES: PENICILLIN, SULFA, ENOXAPARIN, AND ERYTHROMYCIN. ACCU-CHEKS: A.c. and at bedtime. DIET: ADA. CODE STATUS: Full code. FAMILY HISTORY: Positive for ischemic heart disease. SOCIAL HISTORY: The patient is and lives with her . No alcohol or drug abuse, physical, sexual or elder abuse history is noted. Not known to be a perpetrator. MENTAL STATUS EXAMINATION: The patient was seen individually evening of 06/12/2017. She recognized me, but earlier in the day, she was quite confused, oriented just to herself and her had to sign her in as a power of attorney lawyer. Speech, she does have some slurred words and as noted below, we are changing the Seroquel 25 mg t.i.d. to 50 mg at bedtime to avoid daytime sedation. Abstraction fair, computation impaired, language function intact, attention span short. Mood and affect remain somewhat labile. No active suicidal or homicidal ideation. Reaction to hospitalization, the patient accepting of it. ASSETS: Supportive . IMPRESSION: History of major depressive disorder, recurrent with psychotic features, probable bipolar 1 disorder, depressed versus mixed with psychotic features; anxiety disorder, unspecified. Rest as above. PLAN: Admit to the Ger[facility]ychiatry Unit at [facility]. I will see the patient daily individually from a psychiatric standpoint. We will change the Seroquel 25 mg 3 times a day to 50 mg at bedtime, have Neurology consult with Dr. Stephens for seizure disorder. Consider Depakote as a mood stabilizer. I will see her daily individually from a psychiatric standpoint, medical followup per Dr. Ervin/Dr Callejas. MAN Rivka BETH MD DR: CHRIS/elisa JOB#: [id number] / [id number]
[2017-06-12] MEDS: LACTULOSE 20 GM/30 ML SOLUTION. PO SCH (20:35)
[2017-06-12] MEDS: PHENYTOIN SODIUM EXTENDED 100 MG CAPSULE PO SCH (20:35)
[2017-06-12] MEDS: POTASSIUM CHLORIDE 20 MEQ TABLET.ER. PO SCH (20:35)
[2017-06-12] MEDS: INSULIN ASPART 300 UNITS/3 ML INSULN.PEN SQ SCH (20:36)
[2017-06-12] MEDS: EZETIMIBE 10 MG TABLET PO SCH (20:36)
[2017-06-12] MEDS: MONTELUKAST 10 MG TABLET. PO SCH (20:36)
--- NOTE | 2017-06-12 20:53 | PDOC ---
Exam Note: Morales Note: Please also refer to the separate dictated note~for this date of service dictated separately.~Patient seen individually. Discussed the patient with Nursing staff reviewed the chart.~Reviewed interim history and current functioning. Reviewed vital signs,~Labs/ Radiology~and current medications noted below. Continue current treatment with the changes noted in the dictated addendum note Assessment: Vital Signs: Vital Signs Date Time Temp Pulse Resp B/P (MAP) Pulse Ox O2 Delivery O2 Flow Rate FiO2 06/12/17 16:14 97.9 91 18 149/84 (105) 97 Labs: Laboratory Tests Test 06/12/17 16:44 06/12/17 18:56 Glucose (Fingerstick) 110 mg/dL (70-99) H 136 mg/dL (70-99) H Current Medications: Meds: Current Medications Acetaminophen (Tylenol) 650 mg PRN Q6HRS PRN PO PAIN / TEMP; Start 06/12/17 at 16:45 Multi-Ingredient Ointment (Analgesic [place]) 1 tosin PRN QID PRN TP MUSCLE PAIN; Start 06/12/17 at 16:45 Al Hydroxide/Mg Hydroxide (Mylanta Plus Xs) 15 ml PRN AFTMEALHC PRN PO DYSPEPSIA; Start 06/12/17 at 16:45 Magnesium Hydroxide (Milk Of Magnesia) 2,400 mg PRN QHS PRN PO CONSTIPATION; Start 06/12/17 at 16:45 Albuterol Sulfate (Ventolin) 2.5 mg PRN Q6HRS PRN NEB SHORTNESS OF BREATH; Start 06/12/17 at 16:45 Albuterol Sulfate (Ventolin Hfa) 1 puff PRN QID PRN IH FOR ASTHMA; Start at 16:45; Status UNV Aspirin (Children'S Aspirin) 81 mg DAILY PO ; Start 06/13/17 at 09:00 Diazepam (Valium) 2.5 mg BIDAFTMEAL PO Last administered on 06/12/17at 17:41; Start 06/12/17 at 18:00 Diazepam (Valium) 7.5 mg QHS PO Last administered on 06/12/17at 20:36; Start 01/19 at 21:00 Duloxetine HCl (Cymbalta) 20 mg DAILY PO ; Start 06/13/17 at 09:00 Duloxetine HCl (Cymbalta) 30 mg DAILY PO ; Start 06/13/17 at 09:00 EZETIMIBE (Zetia) 10 mg QHS PO Last administered on 06/12/17at 20:36; Start 01/19 at 21:00 Furosemide (Lasix) 80 mg DAILY PO ; Start 06/13/17 at 09:00 Gabapentin (Neurontin) 300 mg QID PO Last administered on 06/12/17at 20:35; Start 06/12/17 at 17:00 Acetaminophen/ Hydrocodone Bitart (Lortab 7.5/325) 1 tab PRN Q6HRS PRN PO PAIN ; Start 06/12/17 at 16:45 Albuterol/ Ipratropium (Duoneb) 3 ml RTQID NEB ; Start 06/12/17 at 20:00 Lubiprostone (Amitiza) 24 mcg BIDWMEALS PO Last administered on 06/12/17at 18:20 ; Start 06/12/17 at 17:00 Metformin HCl (Glucophage) 500 mg BIDWMEALS PO Last administered on 06/12/17at 17:40; Start 06/12/17 at 17:00 Montelukast Sodium (Singulair) 10 mg QHS PO Last administered on 06/12/17 20: 36; Start 06/12/17 at 21:00 Pantoprazole Sodium (Protonix) 40 mg DAILYAC PO ; Start 06/13/17 at 07:30 Phenytoin Sodium (Dilantin) 400 mg QHS PO Last administered on 06/12/17at 20:35 ; Start 06/12/17 at 21:00 Potassium Chloride (Klor-Con) 20 meq BID PO Last administered on 06/12/17at 20: 35; Start 06/12/17 at 21:00 Primidone (Mysoline) 125 mg QID PO Last administered on 06/12/17at 20:35; Start 06/12/17 at 17:00 Quetiapine Fumarate (SEROquel) 25 mg TIDAC PO ; Start 06/13/17 at 07:30; Stop at 07:30; Status DC Azelastine HCl (Astelin) 2 spray PRN BID PRN NS ALLERGIES; Start 06/12/17 at 21 :00 Non-Formulary Medication (Fluticasone/ Umeclidin/ Vilanter (Trelegy Ellipta 100- 62.5-25)) 1 each DAILY IH ; Start 06/13/17 at 09:00 Lactulose (Lactulose) 20 gm QID PO Last administered on 06/12/17at 20:35; Start 06/12/17 at 21:00 Non-Formulary Medication (Levomilnacipran Hydrochloride (Fetzima)) 80 mg DAILY PO ; Start 06/13/17 at 09:00 Meclizine HCl (Antivert) 25 mg PRN QID PRN PO DIZZINESS; Start 06/12/17 at 17: 30 Mirtazapine (Remeron) 22.5 mg QHS PO Last administered on 06/12/17at 20:36; Start 06/12/17 at 21:00 Insulin Aspart (NovoLOG) 0-7 UNITS QIDACHS SQ ; Start 06/12/17 at 21:00 Dextrose 12.5 gm PRN Q15MIN PRN IV SEE COMMENTS; Start 06/12/17 at 17:15 Quetiapine Fumarate (SEROquel) 50 mg QHS PO ; Start 06/13/17 at 21:00 Active Scripts Active Metformin Hcl 500 Mg Tablet 500 Mg PO BIDWMEALS 90 Days Albuterol Sulfate Neb Soln (Albuterol Sulfate) 2.5 Mg/3 Ml Vial.neb 2.5 Mg NEB PRN Q6HRS PRN 30 Days Reported Cymbalta (Duloxetine Hcl) 30 Mg Capsule.dr 30 Mg PO DAILY Cymbalta (Duloxetine Hcl) 20 Mg Capsule.dr 20 Mg PO DAILY Duoneb 0.5-3(2.5) Mg/3 Ml (Albuterol/Ipratropium) 3 Ml Ampul.neb 3 Ml NEB RTQID Seroquel (Quetiapine Fumarate) 25 Mg Tablet 25 Mg PO TID Amitiza (Lubiprostone) 24 Mcg Capsule 24 Mcg PO BIDWMEALS Lactulose 10 Gm/15 Ml Solution 20 Gm PO QID Meclizine Hcl 25 Mg Tablet 1 Tab PO QID PRN LAST DOSE GIVEN: DATE: TIME: NEXT DOSE DUE: DATE: TIME: Trelegy Ellipta 100-62.5-25 (Fluticasone/Umeclidin/Vilanter) 1 Each Blst.w.dev 1 Each IH DAILY Gabapentin 300 Mg Capsule 300 Mg PO QID Primidone 50 Mg Tablet 125 Mg PO QID Astepro (Azelastine Hcl) 205.5 Mcg/0.137 Ml Soso.pump 2 Spr NS BID PRN LAST DOSE GIVEN: DATE: TODAY TIME: AM NEXT DOSE DUE: DATE: TODAY TIME: PM Ventolin Hfa Inhaler (Albuterol Sulfate) 18 Gm Hfa.aer.ad 1 Puff IH PRN QID PRN LAST DOSE GIVEN: NOT GIVEN THIS ADMISSION NEXT DOSE DUE: DATE: TODAY TIME: IF NEEDED Fetzima (Levomilnacipran Hydrochloride) 80 Mg Cap.sa.24h 80 Mg PO DAILY LAST DOSE GIVEN: DATE: TODAY TIME: AM NEXT DOSE DUE: DATE: TOMORROW TIME: AM Remeron (Mirtazapine) 45 Mg Tablet 22.5 Mg PO QHS LAST DOSE GIVEN: DATE: YESTER TIME: AT BEDTIME NEXT DOSE DUE: DATE: TODAY TIME: AT BEDTIME Furosemide 80 Mg Tablet 80 Mg PO DAILY LAST DOSE GIVEN: DATE: TODAY TIME: AM NEXT DOSE DUE: DATE: TOMORROW TIME: AM Abilify (Aripiprazole) 5 Mg Tablet 1 Tab PO QHS LAST DOSE GIVEN: DATE: YESTER TIME: AT BEDTIME NEXT DOSE DUE: DATE: TODAY TIME: AT BEDTIME Hydrocodone-Apap 7.5-325 (Hydrocodone Bit/Acetaminophen) 1 Each Tablet 1 Tab PO PRN Q6HRS PRN LAST DOSE GIVEN: NOT GIVEN TODAY NEXT DOSE DUE: DATE: TODAY TIME: IF NEEDED TIME: IF AND WHEN NEEDED Klor-Con M20 (Potassium Chloride) 20 Meq Tab.er.prt 20 Meq PO BID LAST DOSE GIVEN: DATE: TODAY TIME: AM NEXT DOSE DUE: DATE: TODAY TIME: PM Montelukast Sodium Tablet (Montelukast Sodium) 10 Mg Tablet 10 Mg PO QHS LAST DOSE GIVEN: DATE: YESTER TIME: AT BEDTIME NEXT DOSE DUE: DATE: TODAY TIME: AT BEDTIME Protonix (Pantoprazole Sodium) 40 Mg Tablet.dr 40 Mg PO DAILYAC LAST DOSE GIVEN: DATE: TODAY TIME: BEFORE BREAKFAST NEXT DOSE DUE: DATE: TOMORROW TIME: BEFORE BREAKFAST Dilantin (Phenytoin Sodium Extended) 100 Mg Capsule 400 Mg PO QHS LAST DOSE GIVEN: DATE: YESTERDAY TIME: AT BEDTIME NEXT DOSE DUE: DATE: TODAY TIME: AT BEDTIME Aspirin 81 Mg Tab.chew 81 Mg PO DAILY LAST DOSE GIVEN: DATE: TODAY TIME: AM NEXT DOSE DUE: DATE: TOMORROW TIME: AM Zetia (Ezetimibe) 10 Mg Tablet 10 Mg PO QHS LAST DOSE GIVEN: DATE: YESTER TIME: AT BEDTIME NEXT DOSE DUE: DATE: TODAY TIME: AT BEDTIME Diazepam 5 Mg Tablet 7.5 Mg PO QHS LAST DOSE GIVEN: DATE: YESTER TIME: AT BEDTIME NEXT DOSE DUE: DATE: TODAY TIME: AT BEDTIME Diazepam 5 Mg Tablet 2.5 Mg PO BIDAFTMEAL LAST DOSE GIVEN: DATE: TODAY TIME: AM NEXT DOSE DUE: DATE: TODAY TIME: AFTERNOON I have reviewed the current psychotropics carefully including drug interactions. Risk benefit ratio favors no change other than as noted in my dictated progress note. Diagnosis: Problems: (1) Mood disorder (2) Generalized weakness (3) Depression (4) Suicidal ideation (5) Anxiety disorder (6) Anxiety disorder (7) Impulse control disorder (8) Major depressive disorder, recurrent episode (9) Major depressive disorder, recurrent episode (10) Bipolar affective, mixed, severe SMILEY BETH MD Jun 12, 2017 20:53
[2017-06-12] MEDS ORDERED: MIRTAZAPINE 15 MG TABLET PO SCH (21:00)
--- NOTE | 2017-06-12 21:00 | NUR ---
Behavior Intervention Response and Plan: BIRP Note: Behavior: Assumed Care of patient, patient located in Day Room at shift change. Patient exhibited the following behavior Calm, Interactive, Social. Brief assessment on rounds of vital signs, medication needs, lab studies, and pain. Treatment plan problems .1&2 Intervention: Patient assessed and the following interventions initiated safety checks 15 Minute Checks Cognitive Assessment , Head to toe Assessment , Medications. Response: After interactions and interventions patient responded in the following manner, Able to Focus on Task , Compliant ,Cooperative. Continue to assess behaviors and condition will continue to monitor throughout the shift as needed. Patient educated on ADL's, and hand hygiene. Plan: Continue to monitor Master Treatment Plan for patient's progress toward short term goals of Improved Mood, Decreased Anxiety, rn long term care goals to return to previous living setting vs placement. Continue to assess patient for changes in above assessment. Monitor for medication needs, pain, and safety concerns. Hourly rounding performed to ensure safe environment.
[2017-06-12] MEDS: IPRATRPIUM/ALBUTEROL 0.5/2.5MG 3 ML NEBU. NEB SCH (21:16)
[2017-06-13] MEDS: IPRATRPIUM/ALBUTEROL 0.5/2.5MG 3 ML NEBU. NEB SCH ×4 (05:51→20:00)
[2017-06-13 06:08] VITALS: BP 132/69
[2017-06-13] MEDS ORDERED: QUEtiapine 25 MG TABLET. PO SCH (07:30)
[2017-06-13] MEDS: INSULIN ASPART 300 UNITS/3 ML INSULN.PEN SQ SCH ×4 (07:30→20:58)
[2017-06-13] MEDS: ASPIRIN 81 MG TAB.CHEW PO SCH (08:55)
[2017-06-13] MEDS: FUROSEMIDE 80 MG TABLET PO SCH (08:55)
[2017-06-13] MEDS: POTASSIUM CHLORIDE 20 MEQ TABLET.ER. PO SCH ×2 (08:56→20:55)
[2017-06-13] MEDS: LUBIPROSTONE 24 MCG CAPSULE PO SCH ×2 (08:56→17:29)
[2017-06-13] MEDS: DULoxetine HCL 30 MG CAPSULE.DR PO SCH (08:56)
[2017-06-13] MEDS: DULoxetine HCL 20 MG CAPSULE.DR PO SCH (08:56)
[2017-06-13] MEDS: PANTOPRAZOLE 40 MG TABLET. PO SCH (08:56)
[2017-06-13] MEDS: metFORMIN 500 MG TABLET PO SCH ×2 (08:56→17:27)
[2017-06-13] MEDS: GABAPENTIN 300 MG CAPSULE. PO SCH ×4 (08:57→20:55)
[2017-06-13] MEDS: diazePAM 5 MG TABLET PO SCH ×3 (08:57→20:57)
[2017-06-13] MEDS: LACTULOSE 20 GM/30 ML SOLUTION. PO SCH ×4 (08:57→20:52)
[2017-06-13] MEDS: AZELASTINE NASAL SPRAY 30ML BOTTLE. NS PRN (08:57)
[2017-06-13] MEDS: Fluticasone/Umeclidin/Vilanter (Trelegy Ellipta 100-62.5-25) IH SCH (09:01)
[2017-06-13] MEDS: LEVOMILNACIPRAN HYDROCHLORIDE 80 MG PO SCH (09:02)
[2017-06-13] MEDS: PRIMIDONE 50 MG TABLET PO SCH ×4 (09:07→20:57)
[2017-06-13 09:46] LABS: BASO % 1 % (0-3); EOS # 0.3 x10^3/uL (0.0-0.7); EOS % 6 % (0-3); HEMATOCRIT 38.3 % (36.0-47.0); HEMOGLOBIN 13.3 g/dL (12.0-15.5); LYMPH # 1.6 x10^3/uL (1.0-4.8); LYMPH % 27 % (24-48); MEAN CORPUSCULAR HEMOGLOBIN 31 pg (25-35); MEAN CORPUSCULAR HGB CONC 35 g/dL (31-37); MEAN CORPUSCULAR VOLUME 91 fL (79-100); MONO # 0.5 x10^3/uL (0.0-1.1); MONO % 8 % (0-9); NEUT # 3.4 x10^3uL (1.8-7.7); NEUT % 58 % (31-73); PLATELET COUNT 200 x10^3/uL (140-400); RED BLOOD COUNT 4.22 x10^6/uL (3.50-5.40); RED CELL DISTRIBUTION WIDTH 16.3 % (11.5-14.5); WHITE BLOOD COUNT 5.8 x10^3/uL (4.0-11.0)
[2017-06-13 10:05] LABS: PHENY 21.1 mcg/mL (10.0-20.0)
[2017-06-13 10:08] LABS: ALBUMIN 3.4 g/dL (3.4-5.0); ALBUMIN/GLOBULIN RATIO 0.7 (1.0-1.7); CREATININE 0.9 mg/dL (0.6-1.0); GFR 62.6; MAGNESIUM 1.8 mg/dL (1.8-2.4); POTASSIUM 3.3 mmol/L (3.5-5.1); TOTAL BILIRUBIN 0.2 mg/dL (0.2-1.0); TOTAL PROTEIN 8.1 g/dL (6.4-8.2)
[2017-06-13 11:19] LABS: BACTERIA,URINE 0 /HPF (0-FEW); BILIRUBIN,URINE NEG (NEG); CLARITY,URINE CLEAR; COLOR,URINE YELLOW; GLUCOSE,URINE NEG (NEG); NITRITE,URINE NEG (NEG); RBC,URINE 0 /HPF (0-2); SQUAMOUS EPITHELIAL CELL,UR OCC /LPF; UROBILINOGEN,URINE 0.2 mg/dL (0.2 mg/dL); WBC,URINE RARE /HPF (0-4)
[2017-06-13 15:36] VITALS: BP 135/77
--- NOTE | 2017-06-13 16:41 | NUR ---
Behavior Intervention Response and Plan: BIRP Note: Behavior: Assumed Care of patient, patient located in Day Room at shift change. Patient exhibited the following behavior Calm, Compliant, Cooperative. Brief assessment on rounds of vital signs, medication needs, lab studies, and pain. Treatment plan problems 1-2. Intervention: Patient assessed and the following interventions initiated safety checks 15 Minute Checks Cognitive Assessment , Head to toe Assessment , Medications. Response: After interactions and interventions patient responded in the following manner, Compliant , Cooperative ,Calm. Continue to assess behaviors and condition will continue to monitor throughout the shift as needed. Patient educated on ADL's, and hand hygiene. Plan: Continue to monitor Master Treatment Plan for patient's progress toward short term goals of No harm To self/ others, Improved Mood, rn long term care goals to return to previous living setting vs placement. Continue to assess patient for changes in above assessment. Monitor for medication needs, pain, and safety concerns. Hourly rounding performed to ensure safe environment.
[2017-06-13 20:11] LABS: T3 TOTAL 93 ng/dL (71-180); THYROXINE 4.6 ug/dL (4.5-12.0)
--- NOTE | 2017-06-13 20:53 | PDOC ---
Exam Note: Morales Note: Please also refer to the separate dictated note~for this date of service dictated separately.~Patient seen individually. Discussed the patient with Nursing staff reviewed the chart.~Reviewed interim history and current functioning. Reviewed vital signs,~Labs/ Radiology~and current medications noted below. Continue current treatment with the changes noted in the dictated addendum note Assessment: Vital Signs: Vital Signs Date Time Temp Pulse Resp B/P (MAP) Pulse Ox O2 Delivery O2 Flow Rate FiO2 06/13/17 15:36 98.1 107 18 135/77 (96) 94 06/13/17 15:26 Room Air I&O Intake and Output 06/13/17 07:00 Intake Total 360 ml Balance 360 ml Intake Oral 360 ml # Voids 1 Labs: Laboratory Tests Test 06/13/17 07:09 06/13/17 09:00 06/13/17 11:07 06/13/17 11:08 Glucose (Fingerstick) 96 mg/dL (70-99) 111 mg/dL (70-99) H White Blood Count 5.8 x10^3/uL (4.0-11.0) Red Blood Count 4.22 x10^6/uL (3.50-5.40) Hemoglobin 13.3 g/dL (12.0-15.5) Hematocrit 38.3 % (36.0-47.0) Mean Corpuscular Volume 91 fL (79-100) Mean Corpuscular Hemoglobin 31 pg (25-35) Mean Corpuscular Hemoglobin Concent 35 g/dL (31-37) Red Cell Distribution Width 16.3 % (11.5-14.5) H Platelet Count 200 x10^3/uL (140-400) Neutrophils (%) (Auto) 58 % (31-73) Lymphocytes (%) (Auto) 27 % (24-48) Monocytes (%) (Auto) 8 % (0-9) Eosinophils (%) (Auto) 6 % (0-3) H Basophils (%) (Auto) 1 % (0-3) Neutrophils # (Auto) 3.4 x10^3uL (1.8-7.7) Lymphocytes # (Auto) 1.6 x10^3/uL (1.0-4.8) Monocytes # (Auto) 0.5 x10^3/uL (0.0-1.1) Eosinophils # (Auto) 0.3 x10^3/uL (0.0-0.7) Basophils # (Auto) 0.0 x10^3/uL (0.0-0.2) Sodium Level 141 mmol/L (136-145) Potassium Level 3.3 mmol/L (3.5-5.1) L Chloride Level 100 mmol/L (98-107) Carbon Dioxide Level 30 mmol/L (21-32) Anion Gap 11 (6-14) Blood Urea Nitrogen 11 mg/dL (7-20) Creatinine 0.9 mg/dL (0.6-1.0) Estimated GFR (Cockcroft-Gault) 62.6 BUN/Creatinine Ratio 12 (6-20) Glucose Level 161 mg/dL (70-99) H Calcium Level 9.0 mg/dL (8.5-10.1) Magnesium Level 1.8 mg/dL (1.8-2.4) Total Bilirubin 0.2 mg/dL (0.2-1.0) Aspartate Amino Transferase (AST) 25 U/L (15-37) Alanine Aminotransferase (ALT) 32 U/L (14-59) Alkaline Phosphatase 223 U/L (46-116) H Total Protein 8.1 g/dL (6.4-8.2) Albumin 3.4 g/dL (3.4-5.0) Albumin/Globulin Ratio 0.7 (1.0-1.7) L Thyroxine (T4) 4.6 ug/dL (4.5-12.0) Total Triiodothyronine (TT3) 93 ng/dL (71-180) Phenytoin (Dilantin) Level 21.1 mcg/mL (10.0-20.0) H Phenytoin Last Dose Date 06/12/17 Phenytoin Last Dose Time 2100 Rapid Plasma Reagin Pending Urine Collection Type Unknown Urine Color Yellow Urine Clarity Clear Urine pH 5.5 Urine Specific [place] 1.010 Urine Protein Neg (NEG-TRACE) Urine Glucose (UA) Neg mg/dL (NEG) Urine Ketones (Stick) Neg mg/dL (NEG) Urine Blood Neg (NEG) Urine Nitrite Neg (NEG) Urine Bilirubin Neg (NEG) Urine Urobilinogen Dipstick 0.2 mg/dL (0.2 mg/dL) Urine Leukocyte Esterase Neg (NEG) Urine RBC 0 /HPF (0-2) Urine WBC Rare /HPF (0-4) Urine Squamous Epithelial Cells Occ /LPF Urine Bacteria 0 /HPF (0-FEW) Urine Mucus Slight /LPF Test 06/13/17 16:44 06/13/17 19:25 Glucose (Fingerstick) 96 mg/dL (70-99) 116 mg/dL (70-99) H Current Medications: Meds: Current Medications Acetaminophen (Tylenol) 650 mg PRN Q6HRS PRN PO PAIN / TEMP; Start 06/12/17 at 16:45 Multi-Ingredient Ointment (Analgesic [place]) 1 tosin PRN QID PRN TP MUSCLE PAIN; Start 06/12/17 at 16:45 Al Hydroxide/Mg Hydroxide (Mylanta Plus Xs) 15 ml PRN AFTMEALHC PRN PO DYSPEPSIA; Start 06/12/17 at 16:45 Magnesium Hydroxide (Milk Of Magnesia) 2,400 mg PRN QHS PRN PO CONSTIPATION; Start 06/12/17 at 16:45 Albuterol Sulfate (Ventolin) 2.5 mg PRN Q6HRS PRN NEB SHORTNESS OF BREATH; Start 06/12/17 at 16:45 Albuterol Sulfate (Ventolin Hfa) 1 puff PRN QID PRN IH FOR ASTHMA; Start at 16:45; Status UNV Aspirin (Children'S Aspirin) 81 mg DAILY PO Last administered on 06/13/17at 08: 55; Start 06/13/17 at 09:00 Diazepam (Valium) 2.5 mg BIDAFTMEAL PO Last administered on 06/13/17at 17:32; Start 06/12/17 at 18:00 Diazepam (Valium) 7.5 mg QHS PO Last administered on 06/12/17at 20:36; Start 01/19 at 21:00 Duloxetine HCl (Cymbalta) 20 mg DAILY PO Last administered on 06/13/17at 08:56; Start 06/13/17 at 09:00 Duloxetine HCl (Cymbalta) 30 mg DAILY PO Last administered on 06/13/17at 08:56; Start 06/13/17 at 09:00 EZETIMIBE (Zetia) 10 mg QHS PO Last administered on 06/12/17 20:36; Start 01/19 at 21:00 Furosemide (Lasix) 80 mg DAILY PO Last administered on 06/13/17 08:55; Start 06/13/17 at 09:00 Gabapentin (Neurontin) 300 mg QID PO Last administered on 06/13/17 17:27; Start 06/12/17 at 17:00 Acetaminophen/ Hydrocodone Bitart (Lortab 7.5/325) 1 tab PRN Q6HRS PRN PO PAIN ; Start 06/12/17 at 16:45 Albuterol/ Ipratropium (Duoneb) 3 ml RTQID NEB Last administered on 06/13/17 15:24; Start 06/12/17 at 20:00 Lubiprostone (Amitiza) 24 mcg BIDWMEALS PO Last administered on 06/13/17 17:29 ; Start 06/12/17 at 17:00 Metformin HCl (Glucophage) 500 mg BIDWMEALS PO Last administered on 06/13/17 17:27; Start 06/12/17 at 17:00 Montelukast Sodium (Singulair) 10 mg QHS PO Last administered on 06/12/17 20: 36; Start 06/12/17 at 21:00 Pantoprazole Sodium (Protonix) 40 mg DAILYAC PO Last administered on 06/13/17 08:56; Start 06/13/17 at 07:30 Phenytoin Sodium (Dilantin) 400 mg QHS PO Last administered on 06/12/17 20:35 ; Start 06/12/17 at 21:00 Potassium Chloride (Klor-Con) 20 meq BID PO Last administered on 06/13/17 08: 56; Start 06/12/17 at 21:00 Primidone (Mysoline) 125 mg QID PO Last administered on 06/13/17 17:28; Start 06/12/17 at 17:00 Quetiapine Fumarate (SEROquel) 25 mg TIDAC PO ; Start 06/13/17 at 07:30; Stop at 07:30; Status DC Azelastine HCl (Astelin) 2 spray PRN BID PRN NS ALLERGIES Last administered on 06/13/17 08:57; Start 06/12/17 at 21:00 Non-Formulary Medication (Fluticasone/ Umeclidin/ Vilanter (Trelegy Ellipta 100- 62.5-25)) 1 each DAILY IH Last administered on 06/13/17at 09:01; Start 06/13/17 at 09:00 Lactulose (Lactulose) 20 gm QID PO Last administered on 06/13/17at 17:28; Start 06/12/17 at 21:00 Non-Formulary Medication (Levomilnacipran Hydrochloride (Fetzima)) 80 mg DAILY PO Last administered on 06/13/17at 09:02; Start 06/13/17 at 09:00 Meclizine HCl (Antivert) 25 mg PRN QID PRN PO DIZZINESS; Start 06/12/17 at 17: 30 Mirtazapine (Remeron) 22.5 mg QHS PO Last administered on 06/12/17at 20:36; Start 06/12/17 at 21:00; Stop 06/13/17 at 10:38; Status DC Insulin Aspart (NovoLOG) 0-7 UNITS QIDACHS SQ ; Start 06/12/17 at 21:00 Dextrose 12.5 gm PRN Q15MIN PRN IV SEE COMMENTS; Start 06/12/17 at 17:15 Quetiapine Fumarate (SEROquel) 50 mg QHS PO ; Start 06/13/17 at 21:00 Active Scripts Active Metformin Hcl 500 Mg Tablet 500 Mg PO BIDWMEALS 90 Days Albuterol Sulfate Neb Soln (Albuterol Sulfate) 2.5 Mg/3 Ml Vial.neb 2.5 Mg NEB PRN Q6HRS PRN 30 Days Reported Cymbalta (Duloxetine Hcl) 30 Mg Capsule.dr 30 Mg PO DAILY Cymbalta (Duloxetine Hcl) 20 Mg Capsule.dr 20 Mg PO DAILY Duoneb 0.5-3(2.5) Mg/3 Ml (Albuterol/Ipratropium) 3 Ml Ampul.neb 3 Ml NEB RTQID Seroquel (Quetiapine Fumarate) 25 Mg Tablet 25 Mg PO TID Amitiza (Lubiprostone) 24 Mcg Capsule 24 Mcg PO BIDWMEALS Lactulose 10 Gm/15 Ml Solution 20 Gm PO QID Meclizine Hcl 25 Mg Tablet 1 Tab PO QID PRN LAST DOSE GIVEN: DATE: TIME: NEXT DOSE DUE: DATE: TIME: Trelegy Ellipta 100-62.5-25 (Fluticasone/Umeclidin/Vilanter) 1 Each Blst.w.dev 1 Each IH DAILY Gabapentin 300 Mg Capsule 300 Mg PO QID Primidone 50 Mg Tablet 125 Mg PO QID Astepro (Azelastine Hcl) 205.5 Mcg/0.137 Ml Twisp.pump 2 Spr NS BID PRN LAST DOSE GIVEN: DATE: TODAY TIME: AM NEXT DOSE DUE: DATE: TODAY TIME: PM Ventolin Hfa Inhaler (Albuterol Sulfate) 18 Gm Hfa.aer.ad 1 Puff IH PRN QID PRN LAST DOSE GIVEN: NOT GIVEN THIS ADMISSION NEXT DOSE DUE: DATE: TODAY TIME: IF NEEDED Fetzima (Levomilnacipran Hydrochloride) 80 Mg Cap.sa.24h 80 Mg PO DAILY LAST DOSE GIVEN: DATE: TIME: AM NEXT DOSE DUE: DATE: TOMORROW TIME: AM Remeron (Mirtazapine) 45 Mg Tablet 22.5 Mg PO QHS LAST DOSE GIVEN: DATE: YESTERDAY TIME: AT BEDTIME NEXT DOSE DUE: DATE: TODAY TIME: AT BEDTIME Furosemide 80 Mg Tablet 80 Mg PO DAILY LAST DOSE GIVEN: DATE: TODAY TIME: AM NEXT DOSE DUE: DATE: TOMORROW TIME: AM Abilify (Aripiprazole) 5 Mg Tablet 1 Tab PO QHS LAST DOSE GIVEN: DATE: YESTER TIME: AT BEDTIME NEXT DOSE DUE: DATE: TIME: AT BEDTIME Hydrocodone-Apap 7.5-325 (Hydrocodone Bit/Acetaminophen) 1 Each Tablet 1 Tab PO PRN Q6HRS PRN LAST DOSE GIVEN: NOT GIVEN TODAY NEXT DOSE DUE: DATE: TODAY TIME: IF NEEDED TIME: IF AND WHEN NEEDED Klor-Con M20 (Potassium Chloride) 20 Meq Tab.er.prt 20 Meq PO BID LAST DOSE GIVEN: DATE: TODAY TIME: AM NEXT DOSE DUE: DATE: TODAY TIME: PM Montelukast Sodium Tablet (Montelukast Sodium) 10 Mg Tablet 10 Mg PO QHS LAST DOSE GIVEN: DATE: YESTER TIME: AT BEDTIME NEXT DOSE DUE: DATE: TODAY TIME: AT BEDTIME Protonix (Pantoprazole Sodium) 40 Mg Tablet.dr 40 Mg PO DAILYAC LAST DOSE GIVEN: DATE: TODAY TIME: BEFORE BREAKFAST NEXT DOSE DUE: DATE: TOMORROW TIME: BEFORE BREAKFAST Dilantin (Phenytoin Sodium Extended) 100 Mg Capsule 400 Mg PO QHS LAST DOSE GIVEN: DATE: YESTER TIME: AT BEDTIME NEXT DOSE DUE: DATE: TODAY TIME: AT BEDTIME Aspirin 81 Mg Tab.chew 81 Mg PO DAILY LAST DOSE GIVEN: DATE: TIME: AM NEXT DOSE DUE: DATE: TOMORR TIME: AM Zetia (Ezetimibe) 10 Mg Tablet 10 Mg PO QHS LAST DOSE GIVEN: DATE: YESTER TIME: AT BEDTIME NEXT DOSE DUE: DATE: TODAY TIME: AT BEDTIME Diazepam 5 Mg Tablet 7.5 Mg PO QHS LAST DOSE GIVEN: DATE: YES TIME: AT BEDTIME NEXT DOSE DUE: DATE: TIME: AT BEDTIME Diazepam 5 Mg Tablet 2.5 Mg PO BIDAFTMEAL LAST DOSE GIVEN: DATE: TIME: AM NEXT DOSE DUE: DATE: TODAY TIME: AFTERNOON I have reviewed the current psychotropics carefully including drug interactions. Risk benefit ratio favors no change other than as noted in my dictated progress note. Diagnosis: Problems: (1) Anxiety disorder (2) Anxiety disorder (3) Impulse control disorder (4) Major depressive disorder, recurrent episode (5) Major depressive disorder, recurrent episode (6) Bipolar affective, mixed, severe (7) Mood disorder (8) Depression (9) Suicidal ideation SMILEY BETH MD Jun 13, 2017 20:53
[2017-06-13] MEDS: PHENYTOIN SODIUM EXTENDED 100 MG CAPSULE PO SCH (20:54)
[2017-06-13] MEDS: EZETIMIBE 10 MG TABLET PO SCH (20:55)
[2017-06-13] MEDS: MONTELUKAST 10 MG TABLET. PO SCH (20:55)
[2017-06-13] MEDS: QUEtiapine 50 MG TABLET. PO SCH (20:57)
--- NOTE | 2017-06-13 21:38 | NUR ---
Behavior Intervention Response and Plan: BIRP Note: Behavior: Assumed Care of patient, patient located in Day Room at shift change. Patient exhibited the following behavior Calm, Able to Focus on Task, Social. Brief assessment on rounds of vital signs, medication needs, lab studies, and pain. Treatment plan problems .1&2 Intervention: Patient assessed and the following interventions initiated safety checks 15 Minute Checks Cognitive Assessment , Head to toe Assessment , Medications. Response: After interactions and interventions patient responded in the following manner, Appropriate , Compliant ,Cooperative. Continue to assess behaviors and condition will continue to monitor throughout the shift as needed. Patient educated on ADL's, and hand hygiene. 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 Continue to assess patient for changes in above assessment. Monitor for medication needs, pain, and safety concerns. Hourly rounding performed to ensure safe environment.
[2017-06-13 23:32] LABS: THYROID STIM HORMONE (TSH) 3.906 uIU/mL (0.358-3.740)
[2017-06-14] MEDS: IPRATRPIUM/ALBUTEROL 0.5/2.5MG 3 ML NEBU. NEB SCH ×4 (05:56→21:23)
[2017-06-14 06:38] VITALS: BP 105/58
[2017-06-14] MEDS: INSULIN ASPART 300 UNITS/3 ML INSULN.PEN SQ SCH ×4 (07:30→20:26)
[2017-06-14] MEDS: PANTOPRAZOLE 40 MG TABLET. PO SCH (08:25)
[2017-06-14] MEDS: metFORMIN 500 MG TABLET PO SCH ×2 (08:25→17:18)
[2017-06-14] MEDS: GABAPENTIN 300 MG CAPSULE. PO SCH ×4 (08:25→19:53)
[2017-06-14] MEDS: LACTULOSE 20 GM/30 ML SOLUTION. PO SCH ×4 (08:26→19:53)
[2017-06-14] MEDS: POTASSIUM CHLORIDE 20 MEQ TABLET.ER. PO SCH ×2 (08:26→19:53)
[2017-06-14] MEDS: ASPIRIN 81 MG TAB.CHEW PO SCH (08:26)
[2017-06-14] MEDS: DULoxetine HCL 20 MG CAPSULE.DR PO SCH (08:26)
[2017-06-14] MEDS: FUROSEMIDE 80 MG TABLET PO SCH (08:26)
[2017-06-14] MEDS: DULoxetine HCL 30 MG CAPSULE.DR PO SCH (08:26)
[2017-06-14] MEDS: LUBIPROSTONE 24 MCG CAPSULE PO SCH ×2 (08:27→17:22)
[2017-06-14] MEDS: Fluticasone/Umeclidin/Vilanter (Trelegy Ellipta 100-62.5-25) IH SCH (08:27)
[2017-06-14] MEDS: AZELASTINE NASAL SPRAY 30ML BOTTLE. NS PRN (08:27)
[2017-06-14] MEDS: LEVOMILNACIPRAN HYDROCHLORIDE 80 MG PO SCH (08:28)
[2017-06-14] MEDS: PRIMIDONE 50 MG TABLET PO SCH ×4 (08:33→20:24)
[2017-06-14] MEDS: diazePAM 5 MG TABLET PO SCH ×3 (08:33→20:24)
--- NOTE | 2017-06-14 15:01 | NUR ---
[facility] verified pt's insurance upon admit. Face sheet state pt's insurance is Medicare and BCBS, intake state Medicare and csnap indicate Medicare A, B and no part C., No auth required.
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
--- NOTE | 2017-06-14 15:05 | NUR ---
Behavior Intervention Response and Plan: BIRP Note: Behavior: Assumed Care of patient, patient located in Day Room at shift change. Patient exhibited the following behavior Calm, Compliant, Compliant. Brief assessment on rounds of vital signs, medication needs, lab studies, and pain. Treatment plan problems 1-2. Intervention: Patient assessed and the following interventions initiated safety checks 15 Minute Checks Cognitive Assessment , Head to toe Assessment , Medications. Response: After interactions and interventions patient responded in the following manner, Interactive , Calm ,Compliant. Continue to assess behaviors and condition will continue to monitor throughout the shift as needed. Patient educated on ADL's, and hand hygiene. 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 Continue to assess patient for changes in above assessment. Monitor for medication needs, pain, and safety concerns. Hourly rounding performed to ensure safe environment.
[2017-06-14 16:15] VITALS: BP 128/78
[2017-06-14] MEDS: QUEtiapine 50 MG TABLET. PO SCH (19:51)
[2017-06-14] MEDS: PHENYTOIN SODIUM EXTENDED 100 MG CAPSULE PO SCH (19:52)
[2017-06-14] MEDS: EZETIMIBE 10 MG TABLET PO SCH (19:53)
[2017-06-14] MEDS: MONTELUKAST 10 MG TABLET. PO SCH (19:53)
--- NOTE | 2017-06-14 20:49 | PDOC ---
Exam Note: [place] Note: Please also refer to the separate dictated note~for this date of service dictated separately.~Patient seen individually. Discussed the patient with Nursing staff reviewed the chart.~Reviewed interim history and current functioning. Reviewed vital signs,~Labs/ Radiology~and current medications noted below. Continue current treatment with the changes noted in the dictated addendum note Assessment: Vital Signs: Vital Signs Date Time Temp Pulse Resp B/P (MAP) Pulse Ox O2 Delivery O2 Flow Rate FiO2 06/14/17 16:25 92 Room Air 06/14/17 16:15 97.2 100 18 128/78 (95) I&O Intake and Output 06/14/17 07:00 Intake Total 1080 ml Balance 1080 ml Intake Oral 1080 ml Labs: Laboratory Tests Test 06/14/17 07:11 06/14/17 11:27 06/14/17 16:25 06/14/17 19:25 Glucose (Fingerstick) 101 mg/dL (70-99) H 138 mg/dL (70-99) H 95 mg/dL (70-99) 130 mg/dL (70-99) H Current Medications: Meds: Current Medications Acetaminophen (Tylenol) 650 mg PRN Q6HRS PRN PO PAIN / TEMP; Start 06/12/17 at 16:45 Multi-Ingredient Ointment (Analgesic [place]) 1 tosin PRN QID PRN TP MUSCLE PAIN; Start 06/12/17 at 16:45 Al Hydroxide/Mg Hydroxide (Mylanta Plus Xs) 15 ml PRN AFTMEALHC PRN PO DYSPEPSIA; Start 06/12/17 at 16:45 Magnesium Hydroxide (Milk Of Magnesia) 2,400 mg PRN QHS PRN PO CONSTIPATION; Start 06/12/17 at 16:45 Albuterol Sulfate (Ventolin) 2.5 mg PRN Q6HRS PRN NEB SHORTNESS OF BREATH; Start 06/12/17 at 16:45 Albuterol Sulfate (Ventolin Hfa) 1 puff PRN QID PRN IH FOR ASTHMA; Start at 16:45; Status UNV Aspirin (Children'S Aspirin) 81 mg DAILY PO Last administered on 06/14/17at 08: 26; Start 06/13/17 at 09:00 Diazepam (Valium) 2.5 mg BIDAFTMEAL PO Last administered on 06/14/17 17:19; Start 06/12/17 at 18:00 Diazepam (Valium) 7.5 mg QHS PO Last administered on 06/14/17 20:24; Start 01/19 at 21:00 Duloxetine HCl (Cymbalta) 20 mg DAILY PO Last administered on 06/14/17 08:26; Start 06/13/17 at 09:00 Duloxetine HCl (Cymbalta) 30 mg DAILY PO Last administered on 06/14/17 08:26; Start 06/13/17 at 09:00 EZETIMIBE (Zetia) 10 mg QHS PO Last administered on 06/14/17 19:53; Start 01/19 at 21:00 Furosemide (Lasix) 80 mg DAILY PO Last administered on 06/14/17 08:26; Start 06/13/17 at 09:00 Gabapentin (Neurontin) 300 mg QID PO Last administered on 06/14/17 19:53; Start 06/12/17 at 17:00 Acetaminophen/ Hydrocodone Bitart (Lortab 7.5/325) 1 tab PRN Q6HRS PRN PO PAIN ; Start 06/12/17 at 16:45 Albuterol/ Ipratropium (Duoneb) 3 ml RTQID NEB Last administered on 06/14/17 16:24; Start 06/12/17 at 20:00 Lubiprostone (Amitiza) 24 mcg BIDWMEALS PO Last administered on 06/14/17 17:22 ; Start 06/12/17 at 17:00 Metformin HCl (Glucophage) 500 mg BIDWMEALS PO Last administered on 06/14/17 17:18; Start 06/12/17 at 17:00 Montelukast Sodium (Singulair) 10 mg QHS PO Last administered on 06/14/17 19: 53; Start 06/12/17 at 21:00 Pantoprazole Sodium (Protonix) 40 mg DAILYAC PO Last administered on 06/14/17 08:25; Start 06/13/17 at 07:30 Phenytoin Sodium (Dilantin) 400 mg QHS PO Last administered on 06/14/17 19:52 ; Start 06/12/17 at 21:00 Potassium Chloride (Klor-Con) 20 meq BID PO Last administered on 06/14/17 08: 26; Start 06/12/17 at 21:00; Stop 06/14/17 at 16:26; Status DC Primidone (Mysoline) 125 mg QID PO Last administered on 06/14/17 20:24; Start 06/12/17 at 17:00 Quetiapine Fumarate (SEROquel) 25 mg TIDAC PO ; Start 06/13/17 at 07:30; Stop at 07:30; Status DC Azelastine HCl (Astelin) 2 spray PRN BID PRN NS ALLERGIES Last administered on 06/13/17 08:57; Start 06/12/17 at 21:00 Non-Formulary Medication (Fluticasone/ Umeclidin/ Vilanter (Trelegy Ellipta 100- 62.5-25)) 1 each DAILY IH Last administered on 06/14/17 08:27; Start 06/13/17 at 09:00 Lactulose (Lactulose) 20 gm QID PO Last administered on 06/14/17 19:53; Start 06/12/17 at 21:00 Non-Formulary Medication (Levomilnacipran Hydrochloride (Fetzima)) 80 mg DAILY PO Last administered on 06/14/17 08:28; Start 06/13/17 at 09:00 Meclizine HCl (Antivert) 25 mg PRN QID PRN PO DIZZINESS; Start 06/12/17 at 17: 30 Mirtazapine (Remeron) 22.5 mg QHS PO Last administered on 06/12/17at 20:36; Start 06/12/17 at 21:00; Stop 06/13/17 at 10:38; Status DC Insulin Aspart (NovoLOG) 0-7 UNITS QIDACHS SQ ; Start 06/12/17 at 21:00 Dextrose 12.5 gm PRN Q15MIN PRN IV SEE COMMENTS; Start 06/12/17 at 17:15 Quetiapine Fumarate (SEROquel) 50 mg QHS PO Last administered on 06/14/17 19: 51; Start 06/13/17 at 21:00 Potassium Chloride (Klor-Con) 20 meq TID PO Last administered on 06/14/17 19: 53; Start 06/14/17 at 21:00 Active Scripts Active Metformin Hcl 500 Mg Tablet 500 Mg PO BIDWMEALS 90 Days Albuterol Sulfate Neb Soln (Albuterol Sulfate) 2.5 Mg/3 Ml Vial.neb 2.5 Mg NEB PRN Q6HRS PRN 30 Days Reported Cymbalta (Duloxetine Hcl) 30 Mg Capsule.dr 30 Mg PO DAILY Cymbalta (Duloxetine Hcl) 20 Mg Capsule.dr 20 Mg PO DAILY Duoneb 0.5-3(2.5) Mg/3 Ml (Albuterol/Ipratropium) 3 Ml Ampul.neb 3 Ml NEB RTQID Seroquel (Quetiapine Fumarate) 25 Mg Tablet 25 Mg PO TID Amitiza (Lubiprostone) 24 Mcg Capsule 24 Mcg PO BIDWMEALS Lactulose 10 Gm/15 Ml Solution 20 Gm PO QID Meclizine Hcl 25 Mg Tablet 1 Tab PO QID PRN LAST DOSE GIVEN: DATE: TIME: NEXT DOSE DUE: DATE: TIME: [place] Ellipta 100-62.5-25 (Fluticasone/Umeclidin/Vilanter) 1 Each Blst.w.dev 1 Each IH DAILY Gabapentin 300 Mg Capsule 300 Mg PO QID Primidone 50 Mg Tablet 125 Mg PO QID Astepro (Azelastine Hcl) 205.5 Mcg/0.137 Ml [place].pump 2 Spr NS BID PRN LAST DOSE GIVEN: DATE: TODAY TIME: AM NEXT DOSE DUE: DATE: TODAY TIME: PM Ventolin Hfa Inhaler (Albuterol Sulfate) 18 Gm Hfa.aer.ad 1 Puff IH PRN QID PRN LAST DOSE GIVEN: NOT GIVEN THIS ADMISSION NEXT DOSE DUE: DATE: TODAY TIME: IF NEEDED Fetzima (Levomilnacipran Hydrochloride) 80 Mg Cap.sa.24h 80 Mg PO DAILY LAST DOSE GIVEN: DATE: TODAY TIME: AM NEXT DOSE DUE: DATE: TOMORROW TIME: AM Remeron (Mirtazapine) 45 Mg Tablet 22.5 Mg PO QHS LAST DOSE GIVEN: DATE: YESTERDAY TIME: AT BEDTIME NEXT DOSE DUE: DATE: TODAY TIME: AT BEDTIME Furosemide 80 Mg Tablet 80 Mg PO DAILY LAST DOSE GIVEN: DATE: TODAY TIME: AM NEXT DOSE DUE: DATE: TOMORROW TIME: AM Abilify (Aripiprazole) 5 Mg Tablet 1 Tab PO QHS LAST DOSE GIVEN: DATE: YESTER TIME: AT BEDTIME NEXT DOSE DUE: DATE: TIME: AT BEDTIME Hydrocodone-Apap 7.5-325 (Hydrocodone Bit/Acetaminophen) 1 Each Tablet 1 Tab PO PRN Q6HRS PRN LAST DOSE GIVEN: NOT GIVEN TODAY NEXT DOSE DUE: DATE: TIME: IF NEEDED TIME: IF AND WHEN NEEDED Klor-Con M20 (Potassium Chloride) 20 Meq Tab.er.prt 20 Meq PO BID LAST DOSE GIVEN: DATE: TIME: AM NEXT DOSE DUE: DATE: TODAY TIME: PM Montelukast Sodium Tablet (Montelukast Sodium) 10 Mg Tablet 10 Mg PO QHS LAST DOSE GIVEN: DATE: YES TIME: AT BEDTIME NEXT DOSE DUE: DATE: TIME: AT BEDTIME Protonix (Pantoprazole Sodium) 40 Mg Tablet.dr 40 Mg PO DAILYAC LAST DOSE GIVEN: DATE: TIME: BEFORE BREAKFAST NEXT DOSE DUE: DATE: TOMORROW TIME: BEFORE BREAKFAST Dilantin (Phenytoin Sodium Extended) 100 Mg Capsule 400 Mg PO QHS LAST DOSE GIVEN: DATE: YES TIME: AT BEDTIME NEXT DOSE DUE: DATE: TIME: AT BEDTIME Aspirin 81 Mg Tab.chew 81 Mg PO DAILY LAST DOSE GIVEN: DATE: TIME: AM NEXT DOSE DUE: DATE: TOMORR TIME: AM Zetia (Ezetimibe) 10 Mg Tablet 10 Mg PO QHS LAST DOSE GIVEN: DATE: YES TIME: AT BEDTIME NEXT DOSE DUE: DATE: TIME: AT BEDTIME Diazepam 5 Mg Tablet 7.5 Mg PO QHS LAST DOSE GIVEN: DATE: YES TIME: AT BEDTIME NEXT DOSE DUE: DATE: TODAY TIME: AT BEDTIME Diazepam 5 Mg Tablet 2.5 Mg PO BIDAFTMEAL LAST DOSE GIVEN: DATE: TIME: AM NEXT DOSE DUE: DATE: TODAY TIME: AFTERNOON I have reviewed the current psychotropics carefully including drug interactions. Risk benefit ratio favors no change other than as noted in my dictated progress note. Diagnosis: Problems: (1) Anxiety disorder (2) Anxiety disorder (3) Impulse control disorder (4) Major depressive disorder, recurrent episode (5) Major depressive disorder, recurrent episode (6) Bipolar affective, mixed, severe (7) Mood disorder (8) Depression (9) Suicidal ideation KIIRT,MAN M MD Jun 14, 2017 20:49
[2017-06-14] MEDS ORDERED: DICLOFENAC SODIUM 1% TOPICAL GEL 100GM TUBE. TP PRN (21:45)
--- NOTE | 2017-06-14 23:55 | NUR ---
Behavior Intervention Response and Plan: BIRP Note: Behavior: Assumed Care of patient, patient located in Day Room at shift change. Patient exhibited the following behavior Calm, Compliant, Compliant. Brief assessment on rounds of vital signs, medication needs, lab studies, and pain. Treatment plan problems 1-2. Intervention: Patient assessed and the following interventions initiated safety checks 15 Minute Checks Cognitive Assessment , Head to toe Assessment , Medications. Response: After interactions and interventions patient responded in the following manner, Interactive , Calm ,Compliant. Continue to assess behaviors and condition will continue to monitor throughout the shift as needed. Patient educated on ADL's, and hand hygiene. 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 Continue to assess patient for changes in above assessment. Monitor for medication needs, pain, and safety concerns. Hourly rounding performed to ensure safe environment.
--- NOTE | 2017-06-15 02:15 | CONS ---
DATE OF CONSULTATION: 06/13/2017 REASON FOR CONSULTATION: Medical management. HISTORY OF PRESENT ILLNESS: The patient is a 66-year-old female patient, who was transferred from [facility] on account of increasing mood lability, agitation after the patient walked out to the skilled unit 2 days ago onto the streets with a walker and tending to walk toward [place] approximately 20 miles away with racing thoughts, marked mood lability, paranoia. Attempt to change into her psychotropic medication as an outpatient including reduction of his Valium and starting her on Cymbalta and the Abilify, changing Abilify to Seroquel has failed and therefore she was admitted to [facility] for inpatient psychiatric stabilization. Questioning the patient, she denied any complaint. PAST MEDICAL HISTORY: Her past medical history is significant for COPD, fibromyalgia, type 2 diabetes mellitus, obstructive sleep apnea at nighttime. She does have hypertension, hyperlipidemia, gastroesophageal reflux disease, osteoarthritis, chronic pains, seizure disorder, metabolic encephalopathy, and morbid obesity. PAST SURGICAL HISTORY: Her past surgical history is unremarkable. FAMILY HISTORY: Positive for ischemic heart disease. SOCIAL HISTORY: She is and lives with her . No alcohol or drug abuse. She does not smoke or use any drugs. 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 MEDICATIONS: She is currently on following medications: She is on DuoNeb 0.5/2.5 mg in 3 mL by nebulizer 4 times a day, albuterol sulfate 2.5 mg by nebulizer every 6 hours and albuterol inhaler 1 puff 4 times a day. She is on Zetia 10 mg once a day, aspirin 81 mg once a day, hydrocodone/APAP 7.5/325 one tablet every 6 hours, and she is on primidone 50 mg, she takes 125 mg 4 times a day, phenytoin sodium 400 mg at bedtime, gabapentin 300 mg 4 times a day, duloxetine for Cymbalta 20 mg once a day, duloxetine 30 mg daily, Fetzima 80 mg once a day, mirtazapine 45 mg, Abilify 5 mg at bedtime, and quetiapine fumarate 25 mg 3 times a day, and diazepam 2.5 mg twice a day, lactulose 20 grams 4 times a day, and potassium chloride 20 mEq twice a day, furosemide 80 mg once a day, montelukast sodium 10 mg at bedtime, azelastine 2 sprays to each nostril twice a day ____. She is on Amitiza 24 mcg p.o. b.i.d. with meals. She is on meclizine 25 mg 4 times a day, and Protonix 40 mg once a day, Trelegy Ellipta 1 inhalation daily, metformin 500 mg twice a day. PHYSICAL EXAMINATION: GENERAL: On examining her, she was sitting comfortably in her chair, eating her supper, in no apparent distress. No pallor, jaundice, cyanosis, or thyromegaly. No jugular venous distension. No limb edema. VITAL SIGNS: Her heart rate was 107, blood pressure 135/77, temperature was 98.1, respiratory rate was 18, and oxygen saturation was 94% on room air. HEAD, EYES, EARS, NOSE AND THROAT: Showed normocephalic, atraumatic. NECK: Supple. HEART: Showed normal first and second heart sounds with no gallop, rub or murmur. CHEST: Clear to auscultation. No crepitation or rhonchi. ABDOMEN: Distended, soft, nontender. NEUROLOGIC: She is awake, alert, responding appropriately. Cranial nerves are intact. EXTREMITIES: She moves extremities without difficulty. She ambulates with a walker. LABORATORY DATA: Her lab work showed white cell count 5800, hemoglobin 13, hematocrit 39, MCV 91, and platelet count of 200,000 with normal manual differential. Her chemistry showed that her serum sodium was 141, potassium 3.3, chloride 100, bicarbonate 30, anion gap of 11, BUN 11, creatinine 0.9, estimated GFR was ____ mL per minute. Her glucose 161, calcium was 9, magnesium was 1.8. Total bilirubin, AST, ALT were normal. Alkaline phosphatase was slightly elevated. Total protein was 8.1, albumin was 3.4. Her urine was yellow, clear with the pH of 5.5 with specific gravity of 1.01. The urine was negative for protein, glucose, ketones, blood nitrite, bilirubin, leukocyte esterase as well as there are no bacteria, very rare WBCs and no RBCs. IMPRESSION: In summary, this is a 66-year-old female patient, who was transferred from [facility] unit on the account of increasing mood lability, agitation after the patient walked out of the skilled unit 2 days ago onto the streets with a walker. Her past medical history is significant for chronic obstructive pulmonary disease, fibromyalgia, type 2 diabetes mellitus, sleep apnea on CPAP at nighttime. She is also known to have hypertension, hyperlipidemia, gastroesophageal reflux disease, osteoarthritis, chronic pain syndrome, and epilepsy. So far, all her vital signs seemed to be stable. All her medications seemed to appropriate and all her lab works seemed to be within acceptable range. I will follow all the events pending labs and make any necessary recommendation. Thank you, Dr. Barron, for allowing me to participate in the care of this patient. JAKE JOHNSON MD DR: JERMAINE/elisa JOB#: [id number] / [id number]
--- NOTE | 2017-06-15 04:07 | PN ---
DATE: 06/13/2017 This is a late entry of 06/13/2017 covers elements not covered in my initial note of 06/13/2017. SUBJECTIVE: I met with the patient in the evening of 06/13/2017, staffed at treatment team meeting with the entire team in the morning of 06/13/2017. The patient slept 7 hours previous evening, somewhat flat, sedated at times, not very verbal, but subjectively states she feels less tired. REVIEW OF SYSTEMS: Ambulation impaired with walker. No CV, , pulmonary, eye system symptoms on review. MENTAL STATUS EXAM: Oriented to herself and situation. Speech moderate latency, often responses monosyllabic. Abstraction fair, computation impaired, language function intact. Mood and affect somewhat withdrawn. LABORATORY DATA: Reviewed. IMPRESSION: Bipolar 1 disorder, mixed with psychotic features. Rest unchanged. PLAN: Continue Cymbalta 50 mg a day, Valium 2.5 mg b.i.d., 7.5 mg at bedtime, Seroquel 50 mg at bedtime, Remeron 22.5 mg at bedtime, but we will stop it to reduce the antidepressants given her bipolar diagnosis. She remains on Dilantin 400 mg at bedtime for seizures and Dr. Stephens has been consulted for Neurology to make any other recommendations. SMILEY BETH MD DR: CHRIS/elisa JOB#: [id number] / [id number]
[2017-06-15 06:28] VITALS: BP 128/70
[2017-06-15] MEDS: INSULIN ASPART 300 UNITS/3 ML INSULN.PEN SQ SCH ×4 (07:30→21:00)
[2017-06-15] MEDS: IPRATRPIUM/ALBUTEROL 0.5/2.5MG 3 ML NEBU. NEB SCH ×4 (08:00→21:38)
[2017-06-15] MEDS: ASPIRIN 81 MG TAB.CHEW PO SCH (08:54)
[2017-06-15] MEDS: metFORMIN 500 MG TABLET PO SCH ×2 (08:54→17:30)
[2017-06-15] MEDS: LACTULOSE 20 GM/30 ML SOLUTION. PO SCH ×5 (08:54→20:22)
[2017-06-15] MEDS: DULoxetine HCL 30 MG CAPSULE.DR PO SCH (08:54)
[2017-06-15] MEDS: LUBIPROSTONE 24 MCG CAPSULE PO SCH ×2 (08:54→17:33)
[2017-06-15] MEDS: DULoxetine HCL 20 MG CAPSULE.DR PO SCH (08:54)
[2017-06-15] MEDS: FUROSEMIDE 80 MG TABLET PO SCH (08:55)
[2017-06-15] MEDS: POTASSIUM CHLORIDE 20 MEQ TABLET.ER. PO SCH ×3 (08:55→20:21)
[2017-06-15] MEDS: PRIMIDONE 50 MG TABLET PO SCH ×4 (08:55→20:21)
[2017-06-15] MEDS: GABAPENTIN 300 MG CAPSULE. PO SCH ×4 (08:55→20:22)
[2017-06-15] MEDS: diazePAM 5 MG TABLET PO SCH ×3 (08:56→20:27)
[2017-06-15] MEDS: PANTOPRAZOLE 40 MG TABLET. PO SCH (08:56)
[2017-06-15] MEDS: LEVOMILNACIPRAN HYDROCHLORIDE 80 MG PO SCH (08:57)
[2017-06-15] MEDS: Fluticasone/Umeclidin/Vilanter (Trelegy Ellipta 100-62.5-25) IH SCH (08:57)
[2017-06-15 16:28] VITALS: BP 120/74
--- NOTE | 2017-06-15 16:39 | NUR ---
Behavior Intervention Response and Plan: BIRP Note: Behavior: Assumed Care of patient, patient located in Patient Room at shift change. Patient exhibited the following behavior Calm, Interactive, Cooperative. Brief assessment on rounds of vital signs, medication needs, lab studies, and pain. Treatment plan problems 1-2. Intervention: Patient assessed and the following interventions initiated safety checks 15 Minute Checks Cognitive Assessment , Head to toe Assessment , Medications. Response: After interactions and interventions patient responded in the following manner, Calm , Compliant ,Cooperative. Continue to assess behaviors and condition will continue to monitor throughout the shift as needed. Patient educated on ADL's, and hand hygiene. Plan: Continue to monitor Master Treatment Plan for patient's progress toward short term goals of Improved Mood, No harm To self/ others, correction goals to return to previous living setting vs placement. Continue to assess patient for changes in above assessment. Monitor for medication needs, pain, and safety concerns. Hourly rounding performed to ensure safe environment.
--- NOTE | 2017-06-15 19:46 | PDOC ---
Exam Note: Morales Note: Please also refer to the separate dictated note~for this date of service dictated separately.~Patient seen individually. Discussed the patient with Nursing staff reviewed the chart.~Reviewed interim history and current functioning. Reviewed vital signs,~Labs/ Radiology~and current medications noted below. Continue current treatment with the changes noted in the dictated addendum note Assessment: Vital Signs: Vital Signs Date Time Temp Pulse Resp B/P (MAP) Pulse Ox O2 Delivery O2 Flow Rate FiO2 06/15/17 16:28 98.5 100 18 120/74 (89) 94 Room Air I&O Intake and Output 06/15/17 07:00 Intake Total 1080 ml Balance 1080 ml Intake Oral 1080 ml Labs: Laboratory Tests Test 06/15/17 07:36 06/15/17 11:44 06/15/17 16:53 06/15/17 19:20 Glucose (Fingerstick) 115 mg/dL (70-99) H 105 mg/dL (70-99) H 126 mg/dL (70-99) H 97 mg/dL (70-99) Current Medications: Meds: Current Medications Acetaminophen (Tylenol) 650 mg PRN Q6HRS PRN PO PAIN / TEMP; Start 06/12/17 at 16:45 Multi-Ingredient Ointment (Analgesic [place]) 1 tosin PRN QID PRN TP MUSCLE PAIN; Start 06/12/17 at 16:45 Al Hydroxide/Mg Hydroxide (Mylanta Plus Xs) 15 ml PRN AFTMEALHC PRN PO DYSPEPSIA; Start 06/12/17 at 16:45 Magnesium Hydroxide (Milk Of Magnesia) 2,400 mg PRN QHS PRN PO CONSTIPATION; Start 06/12/17 at 16:45 Albuterol Sulfate (Ventolin) 2.5 mg PRN Q6HRS PRN NEB SHORTNESS OF BREATH Last administered on 06/15/17at 06:00; Start 06/12/17 at 16:45 Albuterol Sulfate (Ventolin Hfa) 1 puff PRN QID PRN IH FOR ASTHMA; Start at 16:45; Status UNV Aspirin (Children'S Aspirin) 81 mg DAILY PO Last administered on 06/15/17at 08: 54; Start 06/13/17 at 09:00 Diazepam (Valium) 2.5 mg BIDAFTMEAL PO Last administered on 06/15/17 17:31; Start 06/12/17 at 18:00 Diazepam (Valium) 7.5 mg QHS PO Last administered on 06/14/17 20:24; Start 01/19 at 21:00; Stop 06/15/17 at 19:22; Status DC Duloxetine HCl (Cymbalta) 20 mg DAILY PO Last administered on 06/15/17 08:54; Start 06/13/17 at 09:00 Duloxetine HCl (Cymbalta) 30 mg DAILY PO Last administered on 06/15/17 08:54; Start 06/13/17 at 09:00 EZETIMIBE (Zetia) 10 mg QHS PO Last administered on 06/14/17 19:53; Start 01/19 at 21:00 Furosemide (Lasix) 80 mg DAILY PO Last administered on 06/15/17 08:55; Start 06/13/17 at 09:00 Gabapentin (Neurontin) 300 mg QID PO Last administered on 06/15/17 17:30; Start 06/12/17 at 17:00 Acetaminophen/ Hydrocodone Bitart (Lortab 7.5/325) 1 tab PRN Q6HRS PRN PO PAIN ; Start 06/12/17 at 16:45 Albuterol/ Ipratropium (Duoneb) 3 ml RTQID NEB Last administered on 06/15/17 15:43; Start 06/12/17 at 20:00 Lubiprostone (Amitiza) 24 mcg BIDWMEALS PO Last administered on 06/15/17 17:33 ; Start 06/12/17 at 17:00 Metformin HCl (Glucophage) 500 mg BIDWMEALS PO Last administered on 06/15/17 17:30; Start 06/12/17 at 17:00 Montelukast Sodium (Singulair) 10 mg QHS PO Last administered on 06/14/17 19: 53; Start 06/12/17 at 21:00 Pantoprazole Sodium (Protonix) 40 mg DAILYAC PO Last administered on 06/15/17 08:56; Start 06/13/17 at 07:30 Phenytoin Sodium (Dilantin) 400 mg QHS PO Last administered on 4/13/18at 19:52 ; Start 06/12/17 at 21:00 Potassium Chloride (Klor-Con) 20 meq BID PO Last administered on 06/14/17at 08: 26; Start 06/12/17 at 21:00; Stop 06/14/17 at 16:26; Status DC Primidone (Mysoline) 125 mg QID PO Last administered on 06/15/17 17:31; Start 06/12/17 at 17:00 Quetiapine Fumarate (SEROquel) 25 mg TIDAC PO ; Start 06/13/17 at 07:30; Stop at 07:30; Status DC Azelastine HCl (Astelin) 2 spray PRN BID PRN NS ALLERGIES Last administered on 06/13/17 08:57; Start 06/12/17 at 21:00 Non-Formulary Medication (Fluticasone/ Umeclidin/ Vilanter (Trelegy Ellipta 100- 62.5-25)) 1 each DAILY IH Last administered on 06/15/17at 08:57; Start 06/13/17 at 09:00 Lactulose (Lactulose) 20 gm QID PO Last administered on 06/15/17 17:31; Start 06/12/17 at 21:00 Non-Formulary Medication (Levomilnacipran Hydrochloride (Fetzima)) 80 mg DAILY PO Last administered on 06/15/17 08:57; Start 06/13/17 at 09:00 Meclizine HCl (Antivert) 25 mg PRN QID PRN PO DIZZINESS; Start 06/12/17 at 17: 30 Mirtazapine (Remeron) 22.5 mg QHS PO Last administered on 06/12/17at 20:36; Start 06/12/17 at 21:00; Stop 06/13/17 at 10:38; Status DC Insulin Aspart (NovoLOG) 0-7 UNITS QIDACHS SQ ; Start 06/12/17 at 21:00 Dextrose 12.5 gm PRN Q15MIN PRN IV SEE COMMENTS; Start 06/12/17 at 17:15 Quetiapine Fumarate (SEROquel) 50 mg QHS PO Last administered on 06/14/17at 19: 51; Start 06/13/17 at 21:00 Potassium Chloride (Klor-Con) 20 meq TID PO Last administered on 06/15/17at 13: 27; Start 06/14/17 at 21:00 Diclofenac Sodium (Voltaren) 1 tosin PRN QHS PRN TP PAIN; Start 06/14/17 at 21:45 Diazepam (Valium) 5 mg QHS PO ; Start 06/15/17 at 21:00 Divalproex Sodium (Depakote Er) 500 mg QHS PO ; Start 06/15/17 at 21:00 Diazepam (Valium) 1.5 mg QHS PO ; Start 06/15/17 at 21:00 Active Scripts Active Metformin Hcl 500 Mg Tablet 500 Mg PO BIDWMEALS 90 Days Albuterol Sulfate Neb Soln (Albuterol Sulfate) 2.5 Mg/3 Ml Vial.neb 2.5 Mg NEB PRN Q6HRS PRN 30 Days Reported Cymbalta (Duloxetine Hcl) 30 Mg Capsule.dr 30 Mg PO DAILY Cymbalta (Duloxetine Hcl) 20 Mg Capsule.dr 20 Mg PO DAILY Duoneb 0.5-3(2.5) Mg/3 Ml (Albuterol/Ipratropium) 3 Ml Ampul.neb 3 Ml NEB RTQID Seroquel (Quetiapine Fumarate) 25 Mg Tablet 25 Mg PO TID Amitiza (Lubiprostone) 24 Mcg Capsule 24 Mcg PO BIDWMEALS Lactulose 10 Gm/15 Ml Solution 20 Gm PO QID Meclizine Hcl 25 Mg Tablet 1 Tab PO QID PRN LAST DOSE GIVEN: DATE: TIME: NEXT DOSE DUE: DATE: TIME: Trelegy Ellipta 100-62.5-25 (Fluticasone/Umeclidin/Vilanter) 1 Each Blst.w.dev 1 Each IH DAILY Gabapentin 300 Mg Capsule 300 Mg PO QID Primidone 50 Mg Tablet 125 Mg PO QID Astepro (Azelastine Hcl) 205.5 Mcg/0.137 Ml [place].pump 2 Spr NS BID PRN LAST DOSE GIVEN: DATE: TODAY TIME: AM NEXT DOSE DUE: DATE: TODAY TIME: PM Ventolin Hfa Inhaler (Albuterol Sulfate) 18 Gm Hfa.aer.ad 1 Puff IH PRN QID PRN LAST DOSE GIVEN: NOT GIVEN THIS ADMISSION NEXT DOSE DUE: DATE: TODAY TIME: IF NEEDED Fetzima (Levomilnacipran Hydrochloride) 80 Mg Cap.sa.24h 80 Mg PO DAILY LAST DOSE GIVEN: DATE: TIME: AM NEXT DOSE DUE: DATE: ORR TIME: AM Remeron (Mirtazapine) 45 Mg Tablet 22.5 Mg PO QHS LAST DOSE GIVEN: DATE: TIME: AT BEDTIME NEXT DOSE DUE: DATE: TODAY TIME: AT BEDTIME Furosemide 80 Mg Tablet 80 Mg PO DAILY LAST DOSE GIVEN: DATE: TIME: AM NEXT DOSE DUE: DATE: ORR TIME: AM Abilify (Aripiprazole) 5 Mg Tablet 1 Tab PO QHS LAST DOSE GIVEN: DATE: TIME: AT BEDTIME NEXT DOSE DUE: DATE: TODAY TIME: AT BEDTIME Hydrocodone-Apap 7.5-325 (Hydrocodone Bit/Acetaminophen) 1 Each Tablet 1 Tab PO PRN Q6HRS PRN LAST DOSE GIVEN: NOT GIVEN TODAY NEXT DOSE DUE: DATE: TIME: IF NEEDED TIME: IF AND WHEN NEEDED Klor-Con M20 (Potassium Chloride) 20 Meq Tab.er.prt 20 Meq PO BID LAST DOSE GIVEN: DATE: TIME: AM NEXT DOSE DUE: DATE: TODAY TIME: PM Montelukast Sodium Tablet (Montelukast Sodium) 10 Mg Tablet 10 Mg PO QHS LAST DOSE GIVEN: DATE: TIME: AT BEDTIME NEXT DOSE DUE: DATE: TODAY TIME: AT BEDTIME Protonix (Pantoprazole Sodium) 40 Mg Tablet.dr 40 Mg PO DAILYAC LAST DOSE GIVEN: DATE: TIME: BEFORE BREAKFAST NEXT DOSE DUE: DATE: TIME: BEFORE BREAKFAST Dilantin (Phenytoin Sodium Extended) 100 Mg Capsule 400 Mg PO QHS LAST DOSE GIVEN: DATE: TIME: AT BEDTIME NEXT DOSE DUE: DATE: TODAY TIME: AT BEDTIME Aspirin 81 Mg Tab.chew 81 Mg PO DAILY LAST DOSE GIVEN: DATE: TIME: AM NEXT DOSE DUE: DATE: TIME: AM Zetia (Ezetimibe) 10 Mg Tablet 10 Mg PO QHS LAST DOSE GIVEN: DATE: TIME: AT BEDTIME NEXT DOSE DUE: DATE: TIME: AT BEDTIME Diazepam 5 Mg Tablet 7.5 Mg PO QHS LAST DOSE GIVEN: DATE: TIME: AT BEDTIME NEXT DOSE DUE: DATE: TODAY TIME: AT BEDTIME Diazepam 5 Mg Tablet 2.5 Mg PO BIDAFTMEAL LAST DOSE GIVEN: DATE: TODAY TIME: AM NEXT DOSE DUE: DATE: TODAY TIME: AFTERNOON I have reviewed the current psychotropics carefully including drug interactions. Risk benefit ratio favors no change other than as noted in my dictated progress note. Diagnosis: Problems: (1) Anxiety disorder (2) Anxiety disorder (3) Impulse control disorder (4) Major depressive disorder, recurrent episode (5) Major depressive disorder, recurrent episode (6) Bipolar affective, mixed, severe (7) Mood disorder (8) Generalized weakness (9) Suicidal ideation (10) Depression SMILEY BETH MD Jun 15, 2017 19:46
[2017-06-15] MEDS: PHENYTOIN SODIUM EXTENDED 100 MG CAPSULE PO SCH (20:21)
[2017-06-15] MEDS: QUEtiapine 50 MG TABLET. PO SCH (20:21)
[2017-06-15] MEDS: MONTELUKAST 10 MG TABLET. PO SCH (20:22)
[2017-06-15] MEDS: EZETIMIBE 10 MG TABLET PO SCH (20:22)
[2017-06-15] MEDS: diazePAM 2 MG TABLET PO SCH (20:27)
[2017-06-15] MEDS: DIVALPROEX ER 500 MG TAB.ER.24H PO SCH (20:39)
[2017-06-16] MEDS: IPRATRPIUM/ALBUTEROL 0.5/2.5MG 3 ML NEBU. NEB SCH ×4 (04:37→19:44)
[2017-06-16 06:21] VITALS: BP 129/77
[2017-06-16] MEDS: INSULIN ASPART 300 UNITS/3 ML INSULN.PEN SQ SCH ×4 (07:30→21:00)
[2017-06-16] MEDS: DULoxetine HCL 20 MG CAPSULE.DR PO SCH (07:48)
[2017-06-16] MEDS: DULoxetine HCL 30 MG CAPSULE.DR PO SCH (07:48)
[2017-06-16] MEDS: GABAPENTIN 300 MG CAPSULE. PO SCH ×4 (07:48→20:36)
[2017-06-16] MEDS: metFORMIN 500 MG TABLET PO SCH ×2 (07:48→16:58)
[2017-06-16] MEDS: FUROSEMIDE 80 MG TABLET PO SCH (07:48)
[2017-06-16] MEDS: ASPIRIN 81 MG TAB.CHEW PO SCH (07:48)
[2017-06-16] MEDS: POTASSIUM CHLORIDE 20 MEQ TABLET.ER. PO SCH ×3 (07:48→20:30)
[2017-06-16] MEDS: PRIMIDONE 50 MG TABLET PO SCH ×4 (07:49→20:29)
[2017-06-16] MEDS: LEVOMILNACIPRAN HYDROCHLORIDE 80 MG PO SCH (07:51)
[2017-06-16] MEDS: PANTOPRAZOLE 40 MG TABLET. PO SCH (07:52)
[2017-06-16] MEDS: diazePAM 5 MG TABLET PO SCH ×3 (07:58→20:30)
[2017-06-16] MEDS: Fluticasone/Umeclidin/Vilanter (Trelegy Ellipta 100-62.5-25) IH SCH (07:58)
[2017-06-16] MEDS: LUBIPROSTONE 24 MCG CAPSULE PO SCH ×2 (07:59→17:01)
[2017-06-16] MEDS: LACTULOSE 20 GM/30 ML SOLUTION. PO SCH ×3 (09:00→17:00)
--- NOTE | 2017-06-16 09:40 | NUR ---
Behavior Intervention Response and Plan: BIRP Note: Behavior: Assumed Care of patient, patient located in Day Room at shift change. Patient exhibited the following behavior Disorganized, Interactive, Social. Brief assessment on rounds of vital signs, medication needs, lab studies, and pain. Treatment plan problems 1 & 2. Intervention: Patient assessed and the following interventions initiated safety checks 15 Minute Checks Cognitive Assessment , Head to toe Assessment , Medications. Response: After interactions and interventions patient responded in the following manner, Calm , Appropriate ,Compliant. Continue to assess behaviors and condition will continue to monitor throughout the shift as needed. Patient educated on ADL's, and hand hygiene. 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 Continue to assess patient for changes in above assessment. Monitor for medication needs, pain, and safety concerns. Hourly rounding performed to ensure safe environment.
[2017-06-16 16:50] VITALS: BP 118/66
[2017-06-16] MEDS: DIVALPROEX ER 500 MG TAB.ER.24H PO SCH (20:29)
[2017-06-16] MEDS: PHENYTOIN SODIUM EXTENDED 100 MG CAPSULE PO SCH (20:29)
[2017-06-16] MEDS: EZETIMIBE 10 MG TABLET PO SCH (20:36)
[2017-06-16] MEDS: diazePAM 2 MG TABLET PO SCH (20:36)
[2017-06-16] MEDS: MONTELUKAST 10 MG TABLET. PO SCH (20:37)
[2017-06-16] MEDS: QUEtiapine 50 MG TABLET. PO SCH (20:37)
--- NOTE | 2017-06-16 22:12 | PDOC ---
Exam Note: Morales Note: Please also refer to the separate dictated note~for this date of service dictated separately.~Patient seen individually. Discussed the patient with Nursing staff reviewed the chart.~Reviewed interim history and current functioning. Reviewed vital signs,~Labs/ Radiology~and current medications noted below. Continue current treatment with the changes noted in the dictated addendum note Assessment: Vital Signs: Vital Signs Date Time Temp Pulse Resp B/P (MAP) Pulse Ox O2 Delivery O2 Flow Rate FiO2 06/16/17 19:45 94 Room Air 06/16/17 16:50 98.4 97 18 118/66 (83) I&O Intake and Output 06/16/17 07:00 Intake Total 1320 ml Balance 1320 ml Intake Oral 1320 ml # Bowel Movements 4 Labs: Laboratory Tests Test 06/16/17 07:10 06/16/17 11:09 06/16/17 16:17 06/16/17 19:10 Glucose (Fingerstick) 98 mg/dL (70-99) 109 mg/dL (70-99) H 97 mg/dL (70-99) 134 mg/dL (70-99) H Current Medications: Meds: Current Medications Acetaminophen (Tylenol) 650 mg PRN Q6HRS PRN PO PAIN / TEMP; Start 06/12/17 at 16:45 Multi-Ingredient Ointment (Analgesic [place]) 1 tosin PRN QID PRN TP MUSCLE PAIN; Start 06/12/17 at 16:45 Al Hydroxide/Mg Hydroxide (Mylanta Plus Xs) 15 ml PRN AFTMEALHC PRN PO DYSPEPSIA; Start 06/12/17 at 16:45 Magnesium Hydroxide (Milk Of Magnesia) 2,400 mg PRN QHS PRN PO CONSTIPATION; Start 06/12/17 at 16:45 Albuterol Sulfate (Ventolin) 2.5 mg PRN Q6HRS PRN NEB SHORTNESS OF BREATH Last administered on 06/15/17at 06:00; Start 06/12/17 at 16:45 Albuterol Sulfate (Ventolin Hfa) 1 puff PRN QID PRN IH FOR ASTHMA; Start at 16:45; Status UNV Aspirin (Children'S Aspirin) 81 mg DAILY PO Last administered on 06/16/17at 07: 48; Start 06/13/17 at 09:00 Diazepam (Valium) 2.5 mg BIDAFTMEAL PO Last administered on 06/16/17 17:02; Start 06/12/17 at 18:00 Diazepam (Valium) 7.5 mg QHS PO Last administered on 06/14/17 20:24; Start 01/19 at 21:00; Stop 06/15/17 at 19:22; Status DC Duloxetine HCl (Cymbalta) 20 mg DAILY PO Last administered on 06/16/17 07:48; Start 06/13/17 at 09:00 Duloxetine HCl (Cymbalta) 30 mg DAILY PO Last administered on 06/16/17 07:48; Start 06/13/17 at 09:00 EZETIMIBE (Zetia) 10 mg QHS PO Last administered on 06/16/17 20:36; Start 01/19 at 21:00 Furosemide (Lasix) 80 mg DAILY PO Last administered on 06/16/17 07:48; Start 06/13/17 at 09:00 Gabapentin (Neurontin) 300 mg QID PO Last administered on 06/16/17 20:36; Start 06/12/17 at 17:00 Acetaminophen/ Hydrocodone Bitart (Lortab 7.5/325) 1 tab PRN Q6HRS PRN PO PAIN ; Start 06/12/17 at 16:45 Albuterol/ Ipratropium (Duoneb) 3 ml RTQID NEB Last administered on 06/16/17 19:44; Start 06/12/17 at 20:00 Lubiprostone (Amitiza) 24 mcg BIDWMEALS PO Last administered on 06/16/17 17:01 ; Start 06/12/17 at 17:00 Metformin HCl (Glucophage) 500 mg BIDWMEALS PO Last administered on 06/16/17 16:58; Start 06/12/17 at 17:00 Montelukast Sodium (Singulair) 10 mg QHS PO Last administered on 06/16/17 20: 37; Start 06/12/17 at 21:00 Pantoprazole Sodium (Protonix) 40 mg DAILYAC PO Last administered on 06/16/17 07:52; Start 06/13/17 at 07:30 Phenytoin Sodium (Dilantin) 400 mg QHS PO Last administered on 06/16/17 20:29 ; Start 06/12/17 at 21:00 Potassium Chloride (Klor-Con) 20 meq BID PO Last administered on 06/14/17at 08: 26; Start 06/12/17 at 21:00; Stop 06/14/17 at 16:26; Status DC Primidone (Mysoline) 125 mg QID PO Last administered on 06/16/17 20:29; Start 06/12/17 at 17:00 Quetiapine Fumarate (SEROquel) 25 mg TIDAC PO ; Start 06/13/17 at 07:30; Stop at 07:30; Status DC Azelastine HCl (Astelin) 2 spray PRN BID PRN NS ALLERGIES Last administered on 06/13/17 08:57; Start 06/12/17 at 21:00 Non-Formulary Medication (Fluticasone/ Umeclidin/ Vilanter (Trelegy Ellipta 100- 62.5-25)) 1 each DAILY IH Last administered on 06/16/17at 07:58; Start 06/13/17 at 09:00 Lactulose (Lactulose) 20 gm QID PO Last administered on 06/15/17at 20:22; Start 06/12/17 at 21:00; Stop 06/16/17 at 18:55; Status DC Non-Formulary Medication (Levomilnacipran Hydrochloride (Fetzima)) 80 mg DAILY PO Last administered on 06/16/17at 07:51; Start 06/13/17 at 09:00 Meclizine HCl (Antivert) 25 mg PRN QID PRN PO DIZZINESS; Start 06/12/17 at 17: 30 Mirtazapine (Remeron) 22.5 mg QHS PO Last administered on 06/12/17at 20:36; Start 06/12/17 at 21:00; Stop 06/13/17 at 10:38; Status DC Insulin Aspart (NovoLOG) 0-7 UNITS QIDACHS SQ ; Start 06/12/17 at 21:00 Dextrose 12.5 gm PRN Q15MIN PRN IV SEE COMMENTS; Start 06/12/17 at 17:15 Quetiapine Fumarate (SEROquel) 50 mg QHS PO Last administered on 06/16/17 20: 37; Start 06/13/17 at 21:00 Potassium Chloride (Klor-Con) 20 meq TID PO Last administered on 06/16/17 20: 30; Start 06/14/17 at 21:00 Diclofenac Sodium (Voltaren) 1 tosin PRN QHS PRN TP PAIN Last administered on 20:39; Start 06/14/17 at 21:45 Diazepam (Valium) 5 mg QHS PO Last administered on 06/16/17 20:30; Start 06/15 at 21:00 Divalproex Sodium (Depakote Er) 500 mg QHS PO Last administered on 06/16/17 20 :29; Start 06/15/17 at 21:00 Diazepam (Valium) 1.5 mg QHS PO Last administered on 06/16/17 20:36; Start at 21:00 Active Scripts Active Metformin Hcl 500 Mg Tablet 500 Mg PO BIDWMEALS 90 Days Albuterol Sulfate Neb Soln (Albuterol Sulfate) 2.5 Mg/3 Ml Vial.neb 2.5 Mg NEB PRN Q6HRS PRN 30 Days Reported Cymbalta (Duloxetine Hcl) 30 Mg Capsule.dr 30 Mg PO DAILY Cymbalta (Duloxetine Hcl) 20 Mg Capsule.dr 20 Mg PO DAILY Duoneb 0.5-3(2.5) Mg/3 Ml (Albuterol/Ipratropium) 3 Ml Ampul.neb 3 Ml NEB RTQID Seroquel (Quetiapine Fumarate) 25 Mg Tablet 25 Mg PO TID Amitiza (Lubiprostone) 24 Mcg Capsule 24 Mcg PO BIDWMEALS Lactulose 10 Gm/15 Ml Solution 20 Gm PO QID Meclizine Hcl 25 Mg Tablet 1 Tab PO QID PRN LAST DOSE GIVEN: DATE: TIME: NEXT DOSE DUE: DATE: TIME: Trelegy Ellipta 100-62.5-25 (Fluticasone/Umeclidin/Vilanter) 1 Each Blst.w.dev 1 Each IH DAILY Gabapentin 300 Mg Capsule 300 Mg PO QID Primidone 50 Mg Tablet 125 Mg PO QID Astepro (Azelastine Hcl) 205.5 Mcg/0.137 Ml [place].pump 2 Spr NS BID PRN LAST DOSE GIVEN: DATE: TODAY TIME: AM NEXT DOSE DUE: DATE: TODAY TIME: PM Ventolin Hfa Inhaler (Albuterol Sulfate) 18 Gm Hfa.aer.ad 1 Puff IH PRN QID PRN LAST DOSE GIVEN: NOT GIVEN THIS ADMISSION NEXT DOSE DUE: DATE: TODAY TIME: IF NEEDED Fetzima (Levomilnacipran Hydrochloride) 80 Mg Cap.sa.24h 80 Mg PO DAILY LAST DOSE GIVEN: DATE: TIME: AM NEXT DOSE DUE: DATE: TOMORROW TIME: AM Remeron (Mirtazapine) 45 Mg Tablet 22.5 Mg PO QHS LAST DOSE GIVEN: DATE: YESTER TIME: AT BEDTIME NEXT DOSE DUE: DATE: TODAY TIME: AT BEDTIME Furosemide 80 Mg Tablet 80 Mg PO DAILY LAST DOSE GIVEN: DATE: TIME: AM NEXT DOSE DUE: DATE: TOMORR TIME: AM Abilify (Aripiprazole) 5 Mg Tablet 1 Tab PO QHS LAST DOSE GIVEN: DATE: YESTER TIME: AT BEDTIME NEXT DOSE DUE: DATE: TODAY TIME: AT BEDTIME Hydrocodone-Apap 7.5-325 (Hydrocodone Bit/Acetaminophen) 1 Each Tablet 1 Tab PO PRN Q6HRS PRN LAST DOSE GIVEN: NOT GIVEN TODAY NEXT DOSE DUE: DATE: TODAY TIME: IF NEEDED TIME: IF AND WHEN NEEDED Klor-Con M20 (Potassium Chloride) 20 Meq Tab.er.prt 20 Meq PO BID LAST DOSE GIVEN: DATE: TIME: AM NEXT DOSE DUE: DATE: TODAY TIME: PM Montelukast Sodium Tablet (Montelukast Sodium) 10 Mg Tablet 10 Mg PO QHS LAST DOSE GIVEN: DATE: YESTER TIME: AT BEDTIME NEXT DOSE DUE: DATE: TODAY TIME: AT BEDTIME Protonix (Pantoprazole Sodium) 40 Mg Tablet.dr 40 Mg PO DAILYAC LAST DOSE GIVEN: DATE: TODAY TIME: BEFORE BREAKFAST NEXT DOSE DUE: DATE: TOMORROW TIME: BEFORE BREAKFAST Dilantin (Phenytoin Sodium Extended) 100 Mg Capsule 400 Mg PO QHS LAST DOSE GIVEN: DATE: YESTER TIME: AT BEDTIME NEXT DOSE DUE: DATE: TODAY TIME: AT BEDTIME Aspirin 81 Mg Tab.chew 81 Mg PO DAILY LAST DOSE GIVEN: DATE: TODAY TIME: AM NEXT DOSE DUE: DATE: TOMORR TIME: AM Zetia (Ezetimibe) 10 Mg Tablet 10 Mg PO QHS LAST DOSE GIVEN: DATE: YESTERDAY TIME: AT BEDTIME NEXT DOSE DUE: DATE: TODAY TIME: AT BEDTIME Diazepam 5 Mg Tablet 7.5 Mg PO QHS LAST DOSE GIVEN: DATE: YESTERDAY TIME: AT BEDTIME NEXT DOSE DUE: DATE: TODAY TIME: AT BEDTIME Diazepam 5 Mg Tablet 2.5 Mg PO BIDAFTMEAL LAST DOSE GIVEN: DATE: TODAY TIME: AM NEXT DOSE DUE: DATE: TODAY TIME: AFTERNOON I have reviewed the current psychotropics carefully including drug interactions. Risk benefit ratio favors no change other than as noted in my dictated progress note. Diagnosis: Problems: (1) Anxiety disorder (2) Impulse control disorder (3) Major depressive disorder, recurrent episode (4) Bipolar affective, mixed, severe (5) Mood disorder (6) Generalized weakness (7) Depression (8) Suicidal ideation SMILEY BETH MD Jun 16, 2017 22:12
--- NOTE | 2017-06-16 23:21 | NUR ---
Behavior Intervention Response and Plan: BIRP Note: Behavior: Assumed Care of patient, patient located in Day Room at shift change. Patient exhibited the following behavior Interactive, Calm, Able to Focus on Task. Brief assessment on rounds of vital signs, medication needs, lab studies, and pain. Treatment plan problems :1-2 Intervention: Patient assessed and the following interventions initiated safety checks 15 Minute Checks Cognitive Assessment , Head to toe Assessment , Medications. Response: After interactions and interventions patient responded in the following manner, Cooperative , Calm ,Interactive. Continue to assess behaviors and condition will continue to monitor throughout the shift as needed. Patient educated on ADL's, and hand hygiene. 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 Continue to assess patient for changes in above assessment. Monitor for medication needs, pain, and safety concerns. Hourly rounding performed to ensure safe environment.
--- NOTE | 2017-06-16 23:22 | PN ---
DATE: 06/14/2017 This late entry of 06/14/2017 covers elements not covered in my initial note of 06/14/2017. SUBJECTIVE: I met with the patient in the evening of 06/14/2017. The patient slept 6 hours previous evening, had a good day on 06/14/2017, quite obsessive, fixated on her bowel movement. No suicidal ideation. REVIEW OF SYSTEMS: Some tiredness. No CV, , pulmonary, eye, ENT system symptoms on review. MENTAL STATUS EXAM: Oriented to herself, situation. Speech has some latency, coherent. Abstraction fair, computation impaired, language function intact. She is somewhat anxious. Denies active suicidal ideation. LABORATORY DATA: Reviewed. IMPRESSION: Probable bipolar 1 disorder, mixed with psychotic features; anxiety disorder, unspecified; history of major depressive disorder; seizure disorder. PLAN: The patient is on Seroquel 50 mg at bedtime. Valium is 2.5 mg b.i.d., 7.[address] Stephens has been asked to consult for the seizure disorder from a neurological standpoint. If Valium is not being used for seizures, we may attempt to taper this rather high dosage, start her on Depakote as a mood stabilizer. She remains on Dilantin for her seizures, level is 21.1. We will defer to Dr. Stephens. Cymbalta is 50 mg a day, Mysoline 125 mg 4 times a day. MAN Rivka BETH MD DR: CHRIS/elisa JOB#: [id number] / [id number]
[2017-06-17] MEDS: IPRATRPIUM/ALBUTEROL 0.5/2.5MG 3 ML NEBU. NEB SCH ×4 (05:55→20:29)
[2017-06-17 06:11] VITALS: BP 102/51
[2017-06-17] MEDS: INSULIN ASPART 300 UNITS/3 ML INSULN.PEN SQ SCH ×4 (07:30→19:34)
[2017-06-17] MEDS: DULoxetine HCL 20 MG CAPSULE.DR PO SCH (07:56)
[2017-06-17] MEDS: GABAPENTIN 300 MG CAPSULE. PO SCH ×4 (07:56→19:33)
[2017-06-17] MEDS: PRIMIDONE 50 MG TABLET PO SCH ×4 (07:57→19:33)
[2017-06-17] MEDS: DULoxetine HCL 30 MG CAPSULE.DR PO SCH (07:57)
[2017-06-17] MEDS: FUROSEMIDE 80 MG TABLET PO SCH (07:57)
[2017-06-17] MEDS: PANTOPRAZOLE 40 MG TABLET. PO SCH (07:57)
[2017-06-17] MEDS: Fluticasone/Umeclidin/Vilanter (Trelegy Ellipta 100-62.5-25) IH SCH (07:58)
[2017-06-17] MEDS: POTASSIUM CHLORIDE 20 MEQ TABLET.ER. PO SCH ×3 (07:58→19:32)
[2017-06-17] MEDS: metFORMIN 500 MG TABLET PO SCH ×2 (07:58→17:22)
[2017-06-17] MEDS: LUBIPROSTONE 24 MCG CAPSULE PO SCH ×2 (07:58→17:23)
[2017-06-17] MEDS: ASPIRIN 81 MG TAB.CHEW PO SCH (07:58)
[2017-06-17] MEDS: LEVOMILNACIPRAN HYDROCHLORIDE 80 MG PO SCH (07:59)
[2017-06-17] MEDS: diazePAM 5 MG TABLET PO SCH ×3 (08:01→19:36)
--- NOTE | 2017-06-17 09:20 | NUR ---
Patient is in her room, drowsy and very disorganized. Scheduled medications provided, will monitor for further behaviours.
--- NOTE | 2017-06-17 09:20 | NUR ---
Behavior Intervention Response and Plan: BIRP Note: Behavior: Assumed Care of patient, patient located in Patient Room at shift change. Patient exhibited the following behavior Disorganized, Withdrawn, Drowsy. Brief assessment on rounds of vital signs, medication needs, lab studies, and pain. Treatment plan problems 1 & 2. Intervention: Patient assessed and the following interventions initiated safety checks 15 Minute Checks Cognitive Assessment , Head to toe Assessment , Medications. Response: After interactions and interventions patient responded in the following manner, Calm , Appropriate ,Compliant. Continue to assess behaviors and condition will continue to monitor throughout the shift as needed. Patient educated on ADL's, and hand hygiene. 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 Continue to assess patient for changes in above assessment. Monitor for medication needs, pain, and safety concerns. Hourly rounding performed to ensure safe environment.
--- NOTE | 2017-06-17 11:20 | NUR ---
SW observed pt present very disorganized, confused, unable to follow directions during the morning while in her room.
--- NOTE | 2017-06-17 12:38 | NUR ---
[facility] contacted pt's to discuss pt's baseline behavior. Pt's visited pt yesterday and reported pt appeared slightly tired, and reported to her her legs felt tired. Pt reported to her she was not allowed to walk the unit as she is told she must stay in the tv room at all times. [facility] assured Tip pt is allowed to walk the unit as desired. Tip plans to visit pt again today during 4:00 visiting hours. [facility] asked for Tip to report to nursing any additional changes noticed from yesterday so Dr. Barron can make any necessary adjustments to medications. Tip would like to be contacted for treatment team. He prefers to be present for treatment team and will likely plan to arrive in person.
[2017-06-17 15:51] VITALS: BP 130/85
--- NOTE | 2017-06-17 17:54 | NUR ---
SW met briefly w/pt's during visiting hours who reported to nursing the same concerns SW shares regarding pt's current behaviors. Pt's states she is unable to follow instructions, direct her walker, states she is tired, and has a flat affect in general. Pt's has concerns regarding her status change from yesterday during his visit. Nursing will report this to Dr. Barron this evening.
[2017-06-17] MEDS: DIVALPROEX ER 500 MG TAB.ER.24H PO SCH (19:31)
[2017-06-17] MEDS: PHENYTOIN SODIUM EXTENDED 100 MG CAPSULE PO SCH (19:32)
[2017-06-17] MEDS: QUEtiapine 50 MG TABLET. PO SCH (19:33)
[2017-06-17] MEDS: EZETIMIBE 10 MG TABLET PO SCH (19:33)
[2017-06-17] MEDS: MONTELUKAST 10 MG TABLET. PO SCH (19:33)
[2017-06-17] MEDS: diazePAM 2 MG TABLET PO SCH (19:36)
--- NOTE | 2017-06-17 21:09 | PDOC ---
Exam Note: Morales Note: Please also refer to the separate dictated note~for this date of service dictated separately.~Patient seen individually. Discussed the patient with Nursing staff reviewed the chart.~Reviewed interim history and current functioning. Reviewed vital signs,~Labs/ Radiology~and current medications noted below. Continue current treatment with the changes noted in the dictated addendum note Assessment: Vital Signs: Vital Signs Date Time Temp Pulse Resp B/P (MAP) Pulse Ox O2 Delivery O2 Flow Rate FiO2 06/17/17 20:31 98 Room Air 06/17/17 15:51 97.2 98 20 130/85 (100) I&O Intake and Output 06/17/17 07:00 Intake Total 1080 ml Balance 1080 ml Intake Oral 1080 ml # Voids 1 # Bowel Movements 2 Labs: Laboratory Tests Test 06/17/17 07:15 06/17/17 11:14 06/17/17 16:25 06/17/17 18:50 Glucose (Fingerstick) 129 mg/dL (70-99) H 130 mg/dL (70-99) H 143 mg/dL (70-99) H Ammonia 94 mcmol/L (11-34) H Test 06/17/17 19:21 Glucose (Fingerstick) 105 mg/dL (70-99) H Current Medications: Meds: Current Medications Acetaminophen (Tylenol) 650 mg PRN Q6HRS PRN PO PAIN / TEMP; Start 06/12/17 at 16:45 Multi-Ingredient Ointment (Analgesic Kim) 1 tosin PRN QID PRN TP MUSCLE PAIN; Start 06/12/17 at 16:45 Al Hydroxide/Mg Hydroxide (Mylanta Plus Xs) 15 ml PRN AFTMEALHC PRN PO DYSPEPSIA; Start 06/12/17 at 16:45 Magnesium Hydroxide (Milk Of Magnesia) 2,400 mg PRN QHS PRN PO CONSTIPATION; Start 06/12/17 at 16:45 Albuterol Sulfate (Ventolin) 2.5 mg PRN Q6HRS PRN NEB SHORTNESS OF BREATH Last administered on 06/15/17at 06:00; Start 06/12/17 at 16:45 Albuterol Sulfate (Ventolin Hfa) 1 puff PRN QID PRN IH FOR ASTHMA; Start at 16:45; Status UNV Aspirin (Children'S Aspirin) 81 mg DAILY PO Last administered on 06/17/17 07: 58; Start 06/13/17 at 09:00 Diazepam (Valium) 2.5 mg BIDAFTMEAL PO Last administered on 06/17/17 17:23; Start 06/12/17 at 18:00 Diazepam (Valium) 7.5 mg QHS PO Last administered on 06/14/17 20:24; Start 01/19 at 21:00; Stop 06/15/17 at 19:22; Status DC Duloxetine HCl (Cymbalta) 20 mg DAILY PO Last administered on 06/17/17 07:56; Start 06/13/17 at 09:00 Duloxetine HCl (Cymbalta) 30 mg DAILY PO Last administered on 06/17/17 07:57; Start 06/13/17 at 09:00 EZETIMIBE (Zetia) 10 mg QHS PO Last administered on 06/17/17 19:33; Start 01/19 at 21:00 Furosemide (Lasix) 80 mg DAILY PO Last administered on 06/17/17 07:57; Start 06/13/17 at 09:00 Gabapentin (Neurontin) 300 mg QID PO Last administered on 06/17/17 19:33; Start 06/12/17 at 17:00 Acetaminophen/ Hydrocodone Bitart (Lortab 7.5/325) 1 tab PRN Q6HRS PRN PO PAIN ; Start 06/12/17 at 16:45 Albuterol/ Ipratropium (Duoneb) 3 ml RTQID NEB Last administered on 06/17/17 20:29; Start 06/12/17 at 20:00 Lubiprostone (Amitiza) 24 mcg BIDWMEALS PO Last administered on 06/17/17 17:23 ; Start 06/12/17 at 17:00 Metformin HCl (Glucophage) 500 mg BIDWMEALS PO Last administered on 06/17/17 17:22; Start 06/12/17 at 17:00 Montelukast Sodium (Singulair) 10 mg QHS PO Last administered on 06/17/17 19: 33; Start 06/12/17 at 21:00 Pantoprazole Sodium (Protonix) 40 mg DAILYAC PO Last administered on 06/17/17 07:57; Start 06/13/17 at 07:30 Phenytoin Sodium (Dilantin) 400 mg QHS PO Last administered on 06/17/17at 19:32 ; Start 06/12/17 at 21:00 Potassium Chloride (Klor-Con) 20 meq BID PO Last administered on 06/14/17at 08: 26; Start 06/12/17 at 21:00; Stop 06/14/17 at 16:26; Status DC Primidone (Mysoline) 125 mg QID PO Last administered on 06/17/17at 19:33; Start 06/12/17 at 17:00 Quetiapine Fumarate (SEROquel) 25 mg TIDAC PO ; Start 06/13/17 at 07:30; Stop at 07:30; Status DC Azelastine HCl (Astelin) 2 spray PRN BID PRN NS ALLERGIES Last administered on 06/13/17at 08:57; Start 06/12/17 at 21:00 Non-Formulary Medication (Fluticasone/ Umeclidin/ Vilanter (Trelegy Ellipta 100- 62.5-25)) 1 each DAILY IH Last administered on 06/17/17at 07:58; Start 06/13/17 at 09:00 Lactulose (Lactulose) 20 gm QID PO Last administered on 06/15/17at 20:22; Start 06/12/17 at 21:00; Stop 06/16/17 at 18:55; Status DC Non-Formulary Medication (Levomilnacipran Hydrochloride (Fetzima)) 80 mg DAILY PO Last administered on 06/17/17at 07:59; Start 06/13/17 at 09:00 Meclizine HCl (Antivert) 25 mg PRN QID PRN PO DIZZINESS; Start 06/12/17 at 17: 30 Mirtazapine (Remeron) 22.5 mg QHS PO Last administered on 06/12/17at 20:36; Start 06/12/17 at 21:00; Stop 06/13/17 at 10:38; Status DC Insulin Aspart (NovoLOG) 0-7 UNITS QIDACHS SQ ; Start 06/12/17 at 21:00 Dextrose 12.5 gm PRN Q15MIN PRN IV SEE COMMENTS; Start 06/12/17 at 17:15 Quetiapine Fumarate (SEROquel) 50 mg QHS PO Last administered on 06/17/17 19: 33; Start 06/13/17 at 21:00 Potassium Chloride (Klor-Con) 20 meq TID PO Last administered on 06/17/17 19: 32; Start 06/14/17 at 21:00 Diclofenac Sodium (Voltaren) 1 tosin PRN QHS PRN TP PAIN Last administered on at 20:39; Start 06/14/17 at 21:45 Diazepam (Valium) 5 mg QHS PO Last administered on 06/17/17 19:36; Start 06/15 at 21:00 Divalproex Sodium (Depakote Er) 500 mg QHS PO Last administered on 06/17/17 19 :31; Start 06/15/17 at 21:00 Diazepam (Valium) 1.5 mg QHS PO Last administered on 06/17/17 19:36; Start at 21:00 Active Scripts Active Metformin Hcl 500 Mg Tablet 500 Mg PO BIDWMEALS 90 Days Albuterol Sulfate Neb Soln (Albuterol Sulfate) 2.5 Mg/3 Ml Vial.neb 2.5 Mg NEB PRN Q6HRS PRN 30 Days Reported Cymbalta (Duloxetine Hcl) 30 Mg Capsule.dr 30 Mg PO DAILY Cymbalta (Duloxetine Hcl) 20 Mg Capsule.dr 20 Mg PO DAILY Duoneb 0.5-3(2.5) Mg/3 Ml (Albuterol/Ipratropium) 3 Ml Ampul.neb 3 Ml NEB RTQID Seroquel (Quetiapine Fumarate) 25 Mg Tablet 25 Mg PO TID Amitiza (Lubiprostone) 24 Mcg Capsule 24 Mcg PO BIDWMEALS Lactulose 10 Gm/15 Ml Solution 20 Gm PO QID Meclizine Hcl 25 Mg Tablet 1 Tab PO QID PRN LAST DOSE GIVEN: DATE: TIME: NEXT DOSE DUE: DATE: TIME: Trelegy Ellipta 100-62.5-25 (Fluticasone/Umeclidin/Vilanter) 1 Each Blst.w.dev 1 Each IH DAILY Gabapentin 300 Mg Capsule 300 Mg PO QID Primidone 50 Mg Tablet 125 Mg PO QID Astepro (Azelastine Hcl) 205.5 Mcg/0.137 Ml Ellijay.pump 2 Spr NS BID PRN LAST DOSE GIVEN: DATE: TODAY TIME: AM NEXT DOSE DUE: DATE: TODAY TIME: PM Ventolin Hfa Inhaler (Albuterol Sulfate) 18 Gm Hfa.aer.ad 1 Puff IH PRN QID PRN LAST DOSE GIVEN: NOT GIVEN THIS ADMISSION NEXT DOSE DUE: DATE: TODAY TIME: IF NEEDED Fetzima (Levomilnacipran Hydrochloride) 80 Mg Cap.sa.24h 80 Mg PO DAILY LAST DOSE GIVEN: DATE: TODAY TIME: AM NEXT DOSE DUE: DATE: TOMORROW TIME: AM Remeron (Mirtazapine) 45 Mg Tablet 22.5 Mg PO QHS LAST DOSE GIVEN: DATE: YESTER TIME: AT BEDTIME NEXT DOSE DUE: DATE: TODAY TIME: AT BEDTIME Furosemide 80 Mg Tablet 80 Mg PO DAILY LAST DOSE GIVEN: DATE: TIME: AM NEXT DOSE DUE: DATE: TOMORR TIME: AM Abilify (Aripiprazole) 5 Mg Tablet 1 Tab PO QHS LAST DOSE GIVEN: DATE: YESTER TIME: AT BEDTIME NEXT DOSE DUE: DATE: TODAY TIME: AT BEDTIME Hydrocodone-Apap 7.5-325 (Hydrocodone Bit/Acetaminophen) 1 Each Tablet 1 Tab PO PRN Q6HRS PRN LAST DOSE GIVEN: NOT GIVEN TODAY NEXT DOSE DUE: DATE: TODAY TIME: IF NEEDED TIME: IF AND WHEN NEEDED Klor-Con M20 (Potassium Chloride) 20 Meq Tab.er.prt 20 Meq PO BID LAST DOSE GIVEN: DATE: TODAY TIME: AM NEXT DOSE DUE: DATE: TODAY TIME: PM Montelukast Sodium Tablet (Montelukast Sodium) 10 Mg Tablet 10 Mg PO QHS LAST DOSE GIVEN: DATE: YESTER TIME: AT BEDTIME NEXT DOSE DUE: DATE: TODAY TIME: AT BEDTIME Protonix (Pantoprazole Sodium) 40 Mg Tablet.dr 40 Mg PO DAILYAC LAST DOSE GIVEN: DATE: TODAY TIME: BEFORE BREAKFAST NEXT DOSE DUE: DATE: TOMORROW TIME: BEFORE BREAKFAST Dilantin (Phenytoin Sodium Extended) 100 Mg Capsule 400 Mg PO QHS LAST DOSE GIVEN: DATE: YESTERDAY TIME: AT BEDTIME NEXT DOSE DUE: DATE: TODAY TIME: AT BEDTIME Aspirin 81 Mg Tab.chew 81 Mg PO DAILY LAST DOSE GIVEN: DATE: TODAY TIME: AM NEXT DOSE DUE: DATE: TOMORROW TIME: AM Zetia (Ezetimibe) 10 Mg Tablet 10 Mg PO QHS LAST DOSE GIVEN: DATE: YESTERDAY TIME: AT BEDTIME NEXT DOSE DUE: DATE: TODAY TIME: AT BEDTIME Diazepam 5 Mg Tablet 7.5 Mg PO QHS LAST DOSE GIVEN: DATE: YESTERDAY TIME: AT BEDTIME NEXT DOSE DUE: DATE: TODAY TIME: AT BEDTIME Diazepam 5 Mg Tablet 2.5 Mg PO BIDAFTMEAL LAST DOSE GIVEN: DATE: TODAY TIME: AM NEXT DOSE DUE: DATE: TODAY TIME: AFTERNOON I have reviewed the current psychotropics carefully including drug interactions. Risk benefit ratio favors no change other than as noted in my dictated progress note. Diagnosis: Problems: (1) Anxiety disorder (2) Anxiety disorder (3) Impulse control disorder (4) Major depressive disorder, recurrent episode (5) Major depressive disorder, recurrent episode (6) Bipolar affective, mixed, severe (7) Mood disorder SMILEY BETH MD Jun 17, 2017 21:09
--- NOTE | 2017-06-17 22:53 | NUR ---
Behavior Intervention Response and Plan: BIRP Note: Behavior: Assumed Care of patient, patient located in Day Room at shift change. Patient exhibited the following behavior Calm, Sleeping, Able to Focus on Task. Brief assessment on rounds of vital signs, medication needs, lab studies, and pain. Treatment plan problems .1&2 Intervention: Patient assessed and the following interventions initiated safety checks 15 Minute Checks Cognitive Assessment , Head to toe Assessment , Medications. Response: After interactions and interventions patient responded in the following manner, Compliant , Cooperative ,Drowsy. Continue to assess behaviors and condition will continue to monitor throughout the shift as needed. Patient educated on ADL's, and hand hygiene. 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 Continue to assess patient for changes in above assessment. Monitor for medication needs, pain, and safety concerns. Hourly rounding performed to ensure safe environment.
[2017-06-18 01:23] LABS: BASO % 0 % (0-3); EOS # 0.2 x10^3/uL (0.0-0.7); EOS % 4 % (0-3); HEMATOCRIT 34.3 % (36.0-47.0); HEMOGLOBIN 11.7 g/dL (12.0-15.5); LYMPH # 2.3 x10^3/uL (1.0-4.8); LYMPH % 38 % (24-48); MEAN CORPUSCULAR HEMOGLOBIN 31 pg (25-35); MEAN CORPUSCULAR HGB CONC 34 g/dL (31-37); MEAN CORPUSCULAR VOLUME 92 fL (79-100); MONO # 0.5 x10^3/uL (0.0-1.1); MONO % 9 % (0-9); NEUT # 2.9 x10^3uL (1.8-7.7); NEUT % 49 % (31-73); PLATELET COUNT 171 x10^3/uL (140-400); RED BLOOD COUNT 3.73 x10^6/uL (3.50-5.40); RED CELL DISTRIBUTION WIDTH 16.1 % (11.5-14.5)
[2017-06-18 01:35] LABS: PHENY 12.6 mcg/mL (10.0-20.0)
[2017-06-18 01:38] LABS: VAL ACID 26 mcg/mL (50-100)
[2017-06-18 01:42] LABS: ALBUMIN/GLOBULIN RATIO 0.7 (1.0-1.7); CALCIUM 8.9 mg/dL (8.5-10.1); GFR 55.5; POTASSIUM 3.8 mmol/L (3.5-5.1); TOTAL BILIRUBIN 0.3 mg/dL (0.2-1.0); TOTAL PROTEIN 7.3 g/dL (6.4-8.2)
--- NOTE | 2017-06-18 03:43 | PN ---
DATE: 06/15/2017 PSYCHIATRIC PROGRESS NOTE This late entry 06/15/2017 covers elements not covered in my initial note 06/15/2017. SUBJECTIVE: The patient continues to be somewhat anxious, restless at times, but less so than before. Discussed with Dr. Stephens. She has been on Valium for possible muscle spasms, not for seizure disorder for which she is on the Dilantin and the latter, I will defer to Dr. Stephens. REVIEW OF SYSTEMS: No CV, , pulmonary, eye, ENT system symptoms on review. MENTAL STATUS EXAM: Reasonably oriented. Speech has some latency, coherent. Abstraction fair, computation impaired, language function intact, attention span short. Mood and affect still somewhat anxious, labile at times. LABORATORY DATA: Reviewed. IMPRESSION: Bipolar 1 disorder, mixed with psychotic features; major depressive disorder with psychotic features. PLAN: We will go ahead and initiate Depakote ER 500 mg p.o. at bedtime for her bipolar diagnosis and reduce the bedtime Valium to 6.5 mg. Continue rest unchanged for now. MAN Rivka BETH MD DR: CHRIS/elisa JOB#: [id number] / [id number]
[2017-06-18] MEDS: IPRATRPIUM/ALBUTEROL 0.5/2.5MG 3 ML NEBU. NEB SCH ×4 (04:26→21:28)
--- NOTE | 2017-06-18 04:27 | PN ---
DATE: 06/16/2017 PSYCHIATRIC PROGRESS NOTE This late entry 06/16/2017 covers elements not covered in my initial note 06/16/2017. SUBJECTIVE: I met with the patient in the evening of 06/16/2017. The patient remains somewhat withdrawn, calm, cooperative with meds, less labile in her mood, tolerating the reduction of Valium. REVIEW OF SYSTEMS: No CV, , pulmonary, eye system symptoms on review. Gait unsteady with a walker. MENTAL STATUS EXAM: Reasonably oriented. Speech has some latency, coherent, often responses monosyllabic. Abstraction fair, computation impaired, language function intact. Mood and affect are somewhat anxious, labile at times. LABORATORY DATA: Reviewed. IMPRESSION: Bipolar 1 disorder, mixed with psychotic features; anxiety disorder, unspecified. PLAN: Continue psychotropics mentioned in my initial note. Depakote has been initiated. Follow labs level, adjust as indicated. MAN Rivka BETH MD DR: CHRIS/elisa JOB#: [id number] / [id number]
[2017-06-18 07:08] VITALS: BP 116/56
[2017-06-18] MEDS: INSULIN ASPART 300 UNITS/3 ML INSULN.PEN SQ SCH ×4 (07:30→20:35)
[2017-06-18] MEDS: DULoxetine HCL 30 MG CAPSULE.DR PO SCH (08:19)
[2017-06-18] MEDS: DULoxetine HCL 20 MG CAPSULE.DR PO SCH (08:19)
[2017-06-18] MEDS: LACTULOSE 20 GM/30 ML SOLUTION. PO SCH ×4 (08:19→20:31)
[2017-06-18] MEDS: ASPIRIN 81 MG TAB.CHEW PO SCH (08:20)
[2017-06-18] MEDS: POTASSIUM CHLORIDE 20 MEQ TABLET.ER. PO SCH ×3 (08:20→20:31)
[2017-06-18] MEDS: PRIMIDONE 50 MG TABLET PO SCH ×4 (08:20→20:31)
[2017-06-18] MEDS: FUROSEMIDE 80 MG TABLET PO SCH (08:21)
[2017-06-18] MEDS: PANTOPRAZOLE 40 MG TABLET. PO SCH (08:21)
[2017-06-18] MEDS: metFORMIN 500 MG TABLET PO SCH ×2 (08:21→17:12)
[2017-06-18] MEDS: GABAPENTIN 300 MG CAPSULE. PO SCH ×4 (08:21→20:31)
[2017-06-18] MEDS: diazePAM 5 MG TABLET PO SCH ×3 (08:23→20:34)
[2017-06-18] MEDS: Fluticasone/Umeclidin/Vilanter (Trelegy Ellipta 100-62.5-25) IH SCH (08:24)
[2017-06-18] MEDS: LUBIPROSTONE 24 MCG CAPSULE PO SCH ×2 (08:24→17:12)
[2017-06-18] MEDS: LEVOMILNACIPRAN HYDROCHLORIDE 80 MG PO SCH (08:26)
--- NOTE | 2017-06-18 10:45 | NUR ---
Behavior Intervention Response and Plan: BIRP Note: Behavior: Assumed Care of patient, patient located in Day Room at shift change. Patient exhibited the following behavior Disorganized, Compulsive, Social. Brief assessment on rounds of vital signs, medication needs, lab studies, and pain. Treatment plan problems 1 & 2. Intervention: Patient assessed and the following interventions initiated safety checks 15 Minute Checks Cognitive Assessment , Head to toe Assessment , Medications. Response: After interactions and interventions patient responded in the following manner, Calm , Appropriate ,Compliant. Continue to assess behaviors and condition will continue to monitor throughout the shift as needed. Patient educated on ADL's, and hand hygiene. 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 Continue to assess patient for changes in above assessment. Monitor for medication needs, pain, and safety concerns. Hourly rounding performed to ensure safe environment.
--- NOTE | 2017-06-18 10:50 | NUR ---
LATE ENTRY 06/12/2017 1150 ACTIVITY THERAPY ASSESSMENT Patient was sitting down quietly during the assessment. Patient was able to recall past, present, location, and family with no problem. Patient was wearing clean clothes and could effectively communicate and express herself. Patient uses a walker to ambulate and she has to move at a slow speed. Patient can perform most ADLs on her own but may need some help some ADLs. Patient has experience with engaging in an active lifestyle. Initial Treatment Goals: To participate in at least 3 groups per day that will increase her socialization through various recreation education activities.
[2017-06-18 15:44] VITALS: BP 126/84
[2017-06-18] MEDS: PHENYTOIN SODIUM EXTENDED 100 MG CAPSULE PO SCH (20:30)
[2017-06-18] MEDS: MONTELUKAST 10 MG TABLET. PO SCH (20:31)
[2017-06-18] MEDS: QUEtiapine 50 MG TABLET. PO SCH (20:31)
[2017-06-18] MEDS: EZETIMIBE 10 MG TABLET PO SCH (20:32)
[2017-06-18] MEDS: diazePAM 2 MG TABLET PO SCH (20:34)
--- NOTE | 2017-06-18 20:57 | PDOC ---
Exam Note: Morales Note: Please also refer to the separate dictated note~for this date of service dictated separately.~Patient seen individually. Discussed the patient with Nursing staff reviewed the chart.~Reviewed interim history and current functioning. Reviewed vital signs,~Labs/ Radiology~and current medications noted below. Continue current treatment with the changes noted in the dictated addendum note Assessment: Vital Signs: Vital Signs Date Time Temp Pulse Resp B/P (MAP) Pulse Ox O2 Delivery O2 Flow Rate FiO2 06/18/17 15:44 98.5 109 20 126/84 (98) 96 06/18/17 15:41 Room Air I&O Intake and Output 06/18/17 07:00 Intake Total 440 ml Balance 440 ml Intake Oral 440 ml # Voids 1 # Bowel Movements 1 Labs: Laboratory Tests Test 06/18/17 01:05 06/18/17 07:17 06/18/17 11:30 06/18/17 16:23 White Blood Count 6.0 x10^3/uL (4.0-11.0) Red Blood Count 3.73 x10^6/uL (3.50-5.40) Hemoglobin 11.7 g/dL (12.0-15.5) L Hematocrit 34.3 % (36.0-47.0) L Mean Corpuscular Volume 92 fL (79-100) Mean Corpuscular Hemoglobin 31 pg (25-35) Mean Corpuscular Hemoglobin Concent 34 g/dL (31-37) Red Cell Distribution Width 16.1 % (11.5-14.5) H Platelet Count 171 x10^3/uL (140-400) Neutrophils (%) (Auto) 49 % (31-73) Lymphocytes (%) (Auto) 38 % (24-48) Monocytes (%) (Auto) 9 % (0-9) Eosinophils (%) (Auto) 4 % (0-3) H Basophils (%) (Auto) 0 % (0-3) Neutrophils # (Auto) 2.9 x10^3uL (1.8-7.7) Lymphocytes # (Auto) 2.3 x10^3/uL (1.0-4.8) Monocytes # (Auto) 0.5 x10^3/uL (0.0-1.1) Eosinophils # (Auto) 0.2 x10^3/uL (0.0-0.7) Basophils # (Auto) 0.0 x10^3/uL (0.0-0.2) Sodium Level 143 mmol/L (136-145) Potassium Level 3.8 mmol/L (3.5-5.1) Chloride Level 102 mmol/L (98-107) Carbon Dioxide Level 30 mmol/L (21-32) Anion Gap 11 (6-14) Blood Urea Nitrogen 16 mg/dL (7-20) Creatinine 1.0 mg/dL (0.6-1.0) Estimated GFR (Cockcroft-Gault) 55.5 BUN/Creatinine Ratio 16 (6-20) Glucose Level 87 mg/dL (70-99) Calcium Level 8.9 mg/dL (8.5-10.1) Total Bilirubin 0.3 mg/dL (0.2-1.0) Aspartate Amino Transferase (AST) 17 U/L (15-37) Alanine Aminotransferase (ALT) 22 U/L (14-59) Alkaline Phosphatase 190 U/L (46-116) H DO-Paq-O-Type Natriuretic Peptide 26 pg/mL (0-124) Total Protein 7.3 g/dL (6.4-8.2) Albumin 3.0 g/dL (3.4-5.0) L Albumin/Globulin Ratio 0.7 (1.0-1.7) L Phenytoin (Dilantin) Level 12.6 mcg/mL (10.0-20.0) Phenytoin Last Dose Date 06/17/2017 Phenytoin Last Dose Time 2100 Valproic Acid Level 26 mcg/mL (50-100) L Valproic Acid Last Dose Date 06/17/2017 Valproic Acid Last Dose Time 2100 Glucose (Fingerstick) 89 mg/dL (70-99) 156 mg/dL (70-99) H 133 mg/dL (70-99) H Test 06/18/17 19:05 Glucose (Fingerstick) 97 mg/dL (70-99) Current Medications: Meds: Current Medications Acetaminophen (Tylenol) 650 mg PRN Q6HRS PRN PO PAIN / TEMP; Start 06/12/17 at 16:45 Multi-Ingredient Ointment (Analgesic [place]) 1 tosin PRN QID PRN TP MUSCLE PAIN; Start 06/12/17 at 16:45 Al Hydroxide/Mg Hydroxide (Mylanta Plus Xs) 15 ml PRN AFTMEALHC PRN PO DYSPEPSIA; Start 06/12/17 at 16:45 Magnesium Hydroxide (Milk Of Magnesia) 2,400 mg PRN QHS PRN PO CONSTIPATION; Start 06/12/17 at 16:45 Albuterol Sulfate (Ventolin) 2.5 mg PRN Q6HRS PRN NEB SHORTNESS OF BREATH Last administered on 06/15/17at 06:00; Start 06/12/17 at 16:45 Albuterol Sulfate (Ventolin Hfa) 1 puff PRN QID PRN IH FOR ASTHMA; Start at 16:45; Status UNV Aspirin (Children'S Aspirin) 81 mg DAILY PO Last administered on 06/18/17at 08: 20; Start 06/13/17 at 09:00 Diazepam (Valium) 2.5 mg BIDAFTMEAL PO Last administered on 06/18/17at 17:11; Start 06/12/17 at 18:00 Diazepam (Valium) 7.5 mg QHS PO Last administered on 06/14/17at 20:24; Start 01/19 at 21:00; Stop 06/15/17 at 19:22; Status DC Duloxetine HCl (Cymbalta) 20 mg DAILY PO Last administered on 06/18/17at 08:19; Start 06/13/17 at 09:00 Duloxetine HCl (Cymbalta) 30 mg DAILY PO Last administered on 06/18/17at 08:19; Start 06/13/17 at 09:00 EZETIMIBE (Zetia) 10 mg QHS PO Last administered on 06/18/17at 20:32; Start 01/19 at 21:00 Furosemide (Lasix) 80 mg DAILY PO Last administered on 06/18/17at 08:21; Start 06/13/17 at 09:00 Gabapentin (Neurontin) 300 mg QID PO Last administered on 06/18/17at 20:31; Start 06/12/17 at 17:00 Acetaminophen/ Hydrocodone Bitart (Lortab 7.5/325) 1 tab PRN Q6HRS PRN PO PAIN ; Start 06/12/17 at 16:45 Albuterol/ Ipratropium (Duoneb) 3 ml RTQID NEB Last administered on 06/18/17at 15:40; Start 06/12/17 at 20:00 Lubiprostone (Amitiza) 24 mcg BIDWMEALS PO Last administered on 06/18/17 17:12 ; Start 06/12/17 at 17:00 Metformin HCl (Glucophage) 500 mg BIDWMEALS PO Last administered on 06/18/17 17:12; Start 06/12/17 at 17:00 Montelukast Sodium (Singulair) 10 mg QHS PO Last administered on 06/18/17 20: 31; Start 06/12/17 at 21:00 Pantoprazole Sodium (Protonix) 40 mg DAILYAC PO Last administered on 06/18/17 08:21; Start 06/13/17 at 07:30 Phenytoin Sodium (Dilantin) 400 mg QHS PO Last administered on 06/18/17 20:30 ; Start 06/12/17 at 21:00 Potassium Chloride (Klor-Con) 20 meq BID PO Last administered on 06/14/17at 08: 26; Start 06/12/17 at 21:00; Stop 06/14/17 at 16:26; Status DC Primidone (Mysoline) 125 mg QID PO Last administered on 06/18/17 20:31; Start 06/12/17 at 17:00 Quetiapine Fumarate (SEROquel) 25 mg TIDAC PO ; Start 06/13/17 at 07:30; Stop at 07:30; Status DC Azelastine HCl (Astelin) 2 spray PRN BID PRN NS ALLERGIES Last administered on 06/13/17at 08:57; Start 06/12/17 at 21:00 Non-Formulary Medication (Fluticasone/ Umeclidin/ Vilanter (Trelegy Ellipta 100- 62.5-25)) 1 each DAILY IH Last administered on 06/18/17at 08:24; Start 06/13/17 at 09:00 Lactulose (Lactulose) 20 gm QID PO Last administered on 06/15/17at 20:22; Start 06/12/17 at 21:00; Stop 06/16/17 at 18:55; Status DC Non-Formulary Medication (Levomilnacipran Hydrochloride (Fetzima)) 80 mg DAILY PO Last administered on 06/18/17at 08:26; Start 06/13/17 at 09:00 Meclizine HCl (Antivert) 25 mg PRN QID PRN PO DIZZINESS; Start 06/12/17 at 17: 30 Mirtazapine (Remeron) 22.5 mg QHS PO Last administered on 06/12/17at 20:36; Start 06/12/17 at 21:00; Stop 06/13/17 at 10:38; Status DC Insulin Aspart (NovoLOG) 0-7 UNITS QIDACHS SQ Last administered on 06/18/17at 12 :01; Start 06/12/17 at 21:00 Dextrose 12.5 gm PRN Q15MIN PRN IV SEE COMMENTS; Start 06/12/17 at 17:15 Quetiapine Fumarate (SEROquel) 50 mg QHS PO Last administered on 06/18/17at 20: 31; Start 06/13/17 at 21:00 Potassium Chloride (Klor-Con) 20 meq TID PO Last administered on 06/18/17 20: 31; Start 06/14/17 at 21:00 Diclofenac Sodium (Voltaren) 1 tosin PRN QHS PRN TP PAIN Last administered on at 20:39; Start 06/14/17 at 21:45 Diazepam (Valium) 5 mg QHS PO Last administered on 06/18/17at 20:34; Start 06/15 at 21:00 Divalproex Sodium (Depakote Er) 500 mg QHS PO Last administered on 06/17/17 19 :31; Start 06/15/17 at 21:00; Stop 06/18/17 at 19:12; Status DC Diazepam (Valium) 1.5 mg QHS PO Last administered on 06/18/17 20:34; Start at 21:00 Lactulose (Lactulose) 20 gm QID PO Last administered on 06/18/17at 20:31; Start 06/18/17 at 09:00 Active Scripts Active Metformin Hcl 500 Mg Tablet 500 Mg PO BIDWMEALS 90 Days Albuterol Sulfate Neb Soln (Albuterol Sulfate) 2.5 Mg/3 Ml Vial.neb 2.5 Mg NEB PRN Q6HRS PRN 30 Days Reported Cymbalta (Duloxetine Hcl) 30 Mg Capsule.dr 30 Mg PO DAILY Cymbalta (Duloxetine Hcl) 20 Mg Capsule.dr 20 Mg PO DAILY Duoneb 0.5-3(2.5) Mg/3 Ml (Albuterol/Ipratropium) 3 Ml Ampul.neb 3 Ml NEB RTQID Seroquel (Quetiapine Fumarate) 25 Mg Tablet 25 Mg PO TID Amitiza (Lubiprostone) 24 Mcg Capsule 24 Mcg PO BIDWMEALS Lactulose 10 Gm/15 Ml Solution 20 Gm PO QID Meclizine Hcl 25 Mg Tablet 1 Tab PO QID PRN LAST DOSE GIVEN: DATE: TIME: NEXT DOSE DUE: DATE: TIME: Trelegy Ellipta 100-62.5-25 (Fluticasone/Umeclidin/Vilanter) 1 Each Blst.w.dev 1 Each IH DAILY Gabapentin 300 Mg Capsule 300 Mg PO QID Primidone 50 Mg Tablet 125 Mg PO QID Astepro (Azelastine Hcl) 205.5 Mcg/0.137 Ml [place].pump 2 Spr NS BID PRN LAST DOSE GIVEN: DATE: TODAY TIME: AM NEXT DOSE DUE: DATE: TODAY TIME: PM Ventolin Hfa Inhaler (Albuterol Sulfate) 18 Gm Hfa.aer.ad 1 Puff IH PRN QID PRN LAST DOSE GIVEN: NOT GIVEN THIS ADMISSION NEXT DOSE DUE: DATE: TODAY TIME: IF NEEDED Fetzima (Levomilnacipran Hydrochloride) 80 Mg Cap.sa.24h 80 Mg PO DAILY LAST DOSE GIVEN: DATE: TODAY TIME: AM NEXT DOSE DUE: DATE: TOMORROW TIME: AM Remeron (Mirtazapine) 45 Mg Tablet 22.5 Mg PO QHS LAST DOSE GIVEN: DATE: YESTERDAY TIME: AT BEDTIME NEXT DOSE DUE: DATE: TODAY TIME: AT BEDTIME Furosemide 80 Mg Tablet 80 Mg PO DAILY LAST DOSE GIVEN: DATE: TODAY TIME: AM NEXT DOSE DUE: DATE: TOMORROW TIME: AM Abilify (Aripiprazole) 5 Mg Tablet 1 Tab PO QHS LAST DOSE GIVEN: DATE: YESTERDAY TIME: AT BEDTIME NEXT DOSE DUE: DATE: TODAY TIME: AT BEDTIME Hydrocodone-Apap 7.5-325 (Hydrocodone Bit/Acetaminophen) 1 Each Tablet 1 Tab PO PRN Q6HRS PRN LAST DOSE GIVEN: NOT GIVEN TODAY NEXT DOSE DUE: DATE: TODAY TIME: IF NEEDED TIME: IF AND WHEN NEEDED Klor-Con M20 (Potassium Chloride) 20 Meq Tab.er.prt 20 Meq PO BID LAST DOSE GIVEN: DATE: TIME: AM NEXT DOSE DUE: DATE: TIME: PM Montelukast Sodium Tablet (Montelukast Sodium) 10 Mg Tablet 10 Mg PO QHS LAST DOSE GIVEN: DATE: YESTER TIME: AT BEDTIME NEXT DOSE DUE: DATE: TODAY TIME: AT BEDTIME Protonix (Pantoprazole Sodium) 40 Mg Tablet.dr 40 Mg PO DAILYAC LAST DOSE GIVEN: DATE: TODAY TIME: BEFORE BREAKFAST NEXT DOSE DUE: DATE: TOMORROW TIME: BEFORE BREAKFAST Dilantin (Phenytoin Sodium Extended) 100 Mg Capsule 400 Mg PO QHS LAST DOSE GIVEN: DATE: YES TIME: AT BEDTIME NEXT DOSE DUE: DATE: TIME: AT BEDTIME Aspirin 81 Mg Tab.chew 81 Mg PO DAILY LAST DOSE GIVEN: DATE: TIME: AM NEXT DOSE DUE: DATE: TOMORROW TIME: AM Zetia (Ezetimibe) 10 Mg Tablet 10 Mg PO QHS LAST DOSE GIVEN: DATE: YES TIME: AT BEDTIME NEXT DOSE DUE: DATE: TIME: AT BEDTIME Diazepam 5 Mg Tablet 7.5 Mg PO QHS LAST DOSE GIVEN: DATE: YESTER TIME: AT BEDTIME NEXT DOSE DUE: DATE: TIME: AT BEDTIME Diazepam 5 Mg Tablet 2.5 Mg PO BIDAFTMEAL LAST DOSE GIVEN: DATE: TIME: AM NEXT DOSE DUE: DATE: TODAY TIME: AFTERNOON I have reviewed the current psychotropics carefully including drug interactions. Risk benefit ratio favors no change other than as noted in my dictated progress note. Diagnosis: Problems: (1) Anxiety disorder (2) Anxiety disorder (3) Impulse control disorder (4) Major depressive disorder, recurrent episode (5) Major depressive disorder, recurrent episode (6) Bipolar affective, mixed, severe (7) Mood disorder (8) Depression (9) Suicidal ideation SMILEY BETH MD Jun 18, 2017 20:57
--- NOTE | 2017-06-18 21:50 | NUR ---
Behavior Intervention Response and Plan: BIRP Note: Behavior: Assumed Care of patient, patient located in Day Room at shift change. Patient exhibited the following behavior Interactive, Social, Calm. Brief assessment on rounds of vital signs, medication needs, lab studies, and pain. Treatment plan problems .1&2 Intervention: Patient assessed and the following interventions initiated safety checks 15 Minute Checks Cognitive Assessment , Head to toe Assessment , Medications. Response: After interactions and interventions patient responded in the following manner, Able to Focus on Task , Compliant ,Cooperative. Continue to assess behaviors and condition will continue to monitor throughout the shift as needed. Patient educated on ADL's, and hand hygiene. Plan: Continue to monitor Master Treatment Plan for patient's progress toward short term goals of Decreased Anxiety, Improved Mood, long term care social worker goals to return to previous living setting vs placement. Continue to assess patient for changes in above assessment. Monitor for medication needs, pain, and safety concerns. Hourly rounding performed to ensure safe environment.
--- NOTE | 2017-06-18 22:57 | PN ---
DATE: 06/17/2017 This is a late entry 06/17/2017 covers elements not covered in my initial note of 06/17/2017. SUBJECTIVE: I met with the patient in the evening of 06/17/2017. Per nursing report, the patient has appeared more confused. She has had some trouble holding her cups. Somewhat more slurred in her speech. We will check an ammonia level evening of 06/17/2017. Deferred to Dr. Ervin and also check CBC, CMP, valproic acid level, Dilantin level in the morning of 06/18/2017. REVIEW OF SYSTEMS: No CV, , pulmonary, eye system symptoms on review. MENTAL STATUS EXAM: Oriented to herself and situation. Speech has some latency, coherent, slightly slurred, abstraction fair, computation impaired, language function intact, attention span short. Mood and affect somewhat anxious, labile. LABORATORY DATA: Reviewed. IMPRESSION: Bipolar 1 disorder, mixed with psychotic features; cognitive disorder, unspecified. PLAN: Check labs as above. Continue rest of the psychotropics. MAN Rivka BETH MD DR: CHRIS/elisa JOB#: [id number] / [id number]
[2017-06-19] MEDS: IPRATRPIUM/ALBUTEROL 0.5/2.5MG 3 ML NEBU. NEB SCH ×4 (04:48→21:36)
[2017-06-19 06:16] VITALS: BP 127/75
[2017-06-19] MEDS: INSULIN ASPART 300 UNITS/3 ML INSULN.PEN SQ SCH ×4 (07:30→19:53)
[2017-06-19] MEDS: PRIMIDONE 50 MG TABLET PO SCH ×4 (07:37→19:49)
[2017-06-19] MEDS: LEVOMILNACIPRAN HYDROCHLORIDE 80 MG PO SCH (07:37)
[2017-06-19] MEDS: Fluticasone/Umeclidin/Vilanter (Trelegy Ellipta 100-62.5-25) IH SCH (07:38)
[2017-06-19] MEDS: LACTULOSE 20 GM/30 ML SOLUTION. PO SCH ×4 (07:38→19:46)
[2017-06-19] MEDS: FUROSEMIDE 80 MG TABLET PO SCH (07:38)
[2017-06-19] MEDS: PANTOPRAZOLE 40 MG TABLET. PO SCH (07:38)
[2017-06-19] MEDS: metFORMIN 500 MG TABLET PO SCH ×2 (07:38→17:47)
[2017-06-19] MEDS: DULoxetine HCL 30 MG CAPSULE.DR PO SCH (07:38)
[2017-06-19] MEDS: ASPIRIN 81 MG TAB.CHEW PO SCH (07:38)
[2017-06-19] MEDS: DULoxetine HCL 20 MG CAPSULE.DR PO SCH (07:38)
[2017-06-19] MEDS: POTASSIUM CHLORIDE 20 MEQ TABLET.ER. PO SCH ×3 (07:39→19:50)
[2017-06-19] MEDS: GABAPENTIN 300 MG CAPSULE. PO SCH ×4 (07:39→19:49)
[2017-06-19] MEDS: LUBIPROSTONE 24 MCG CAPSULE PO SCH ×2 (07:39→17:46)
[2017-06-19] MEDS: diazePAM 5 MG TABLET PO SCH ×3 (07:42→19:51)
--- NOTE | 2017-06-19 11:00 | NUR ---
Behavior Intervention Response and Plan: BIRP Note: Behavior: Assumed Care of patient, patient located in Patient Room at shift change. Patient exhibited the following behavior Disorganized, Withdrawn, Drowsy. Brief assessment on rounds of vital signs, medication needs, lab studies, and pain. Treatment plan problems 1 & 2. Intervention: Patient assessed and the following interventions initiated safety checks 15 Minute Checks Cognitive Assessment , Head to toe Assessment , Medications. Response: After interactions and interventions patient responded in the following manner, Calm , Appropriate ,Compliant. Continue to assess behaviors and condition will continue to monitor throughout the shift as needed. Patient educated on ADL's, and hand hygiene. Plan: Continue to monitor Master Treatment Plan for patient's progress toward short term goals of Medication Compliance, No harm To self/ others, [facility] goals to return to previous living setting vs placement. Continue to assess patient for changes in above assessment. Monitor for medication needs, pain, and safety concerns. Hourly rounding performed to ensure safe environment.
--- NOTE | 2017-06-19 15:00 | NUR ---
WEEKLY THERAPEUTIC RECREATION NOTE Date of Admission: 06/12/2017 Date of AT Assessment: 06/12/2017 Goal aimed: to increase socialization and leisure awareness Initial goal: Pt. will participate in at least three groups per day Weekly progress towards goal: did not meet Group participation level: minimal to moderate Behaviors observed: follows along with best of her ability, quiet, calm, around group most of the time Plan: no changes to goal
[2017-06-19 16:25] VITALS: BP 110/61
--- NOTE | 2017-06-19 18:42 | PN ---
DATE: 06/18/2017 This late entry 06/18/2017 covers elements not covered in my initial note 06/18/2017. Met with the patient in the evening of 06/18/2017. I was called late the previous evening. Ammonia level was 94, elevated. I did ask the nursing staff to call Dr. Ervin and she is back on lactulose 4 times a day, and we will stop the Depakote as well. She has been a little more coherent at times on 06/18/2017, less drowsy. Has a past history of hepatic encephalopathy. Nursing staff are helping feed her. No CV, , pulmonary, eye system symptoms on review. MENTAL STATUS EXAM: Oriented to herself and situation. Speech is still somewhat slurred, abstraction fair, computation impaired, language function intact, attention span short. Mood and affect is somewhat labile. LABORATORY DATA: Reviewed. IMPRESSION: Bipolar 1 disorder, mixed with psychotic features, delirium due to general medical condition, anxiety disorder, unspecified. Rest unchanged. PLAN: Continue psychotropics mentioned in my initial, but stopped the Depakote. She just had one dosage of it so far. May consider Trileptal as a mood stabilizer if needed. MAN Rivka BETH MD DR: CHRIS/elisa JOB#: [id number] / [id number]
[2017-06-19] MEDS: EZETIMIBE 10 MG TABLET PO SCH (19:46)
[2017-06-19] MEDS: PHENYTOIN SODIUM EXTENDED 100 MG CAPSULE PO SCH (19:47)
[2017-06-19] MEDS: QUEtiapine 50 MG TABLET. PO SCH (19:49)
[2017-06-19] MEDS: MONTELUKAST 10 MG TABLET. PO SCH (19:50)
[2017-06-19] MEDS: diazePAM 2 MG TABLET PO SCH (19:51)
--- NOTE | 2017-06-19 21:17 | PDOC ---
Exam Note: Morales Note: Please also refer to the separate dictated note~for this date of service dictated separately.~Patient seen individually. Discussed the patient with Nursing staff reviewed the chart.~Reviewed interim history and current functioning. Reviewed vital signs,~Labs/ Radiology~and current medications noted below. Continue current treatment with the changes noted in the dictated addendum note Assessment: Vital Signs: Vital Signs Date Time Temp Pulse Resp B/P (MAP) Pulse Ox O2 Delivery O2 Flow Rate FiO2 06/19/17 20:49 94 Room Air 06/19/17 16:25 98.7 104 20 110/61 (77) I&O Intake and Output 06/19/17 07:00 Intake Total 1075 ml Balance 1075 ml Intake Oral 1075 ml # Voids 1 Labs: Laboratory Tests Test 06/19/17 07:17 06/19/17 11:29 06/19/17 16:28 06/19/17 19:11 Glucose (Fingerstick) 108 mg/dL (70-99) H 86 mg/dL (70-99) 111 mg/dL (70-99) H 137 mg/dL (70-99) H Current Medications: Meds: Current Medications Acetaminophen (Tylenol) 650 mg PRN Q6HRS PRN PO PAIN / TEMP; Start 06/12/17 at 16:45 Multi-Ingredient Ointment (Analgesic [place]) 1 tosin PRN QID PRN TP MUSCLE PAIN; Start 06/12/17 at 16:45 Al Hydroxide/Mg Hydroxide (Mylanta Plus Xs) 15 ml PRN AFTMEALHC PRN PO DYSPEPSIA; Start 06/12/17 at 16:45 Magnesium Hydroxide (Milk Of Magnesia) 2,400 mg PRN QHS PRN PO CONSTIPATION; Start 06/12/17 at 16:45 Albuterol Sulfate (Ventolin) 2.5 mg PRN Q6HRS PRN NEB SHORTNESS OF BREATH Last administered on 06/15/17at 06:00; Start 06/12/17 at 16:45 Albuterol Sulfate (Ventolin Hfa) 1 puff PRN QID PRN IH FOR ASTHMA; Start at 16:45; Status UNV Aspirin (Children'S Aspirin) 81 mg DAILY PO Last administered on 06/19/17at 07: 38; Start 06/13/17 at 09:00 Diazepam (Valium) 2.5 mg BIDAFTMEAL PO Last administered on 06/19/17 17:46; Start 06/12/17 at 18:00 Diazepam (Valium) 7.5 mg QHS PO Last administered on 06/14/17at 20:24; Start 01/19 at 21:00; Stop 06/15/17 at 19:22; Status DC Duloxetine HCl (Cymbalta) 20 mg DAILY PO Last administered on 06/19/17 07:38; Start 06/13/17 at 09:00 Duloxetine HCl (Cymbalta) 30 mg DAILY PO Last administered on 06/19/17 07:38; Start 06/13/17 at 09:00 EZETIMIBE (Zetia) 10 mg QHS PO Last administered on 06/19/17 19:46; Start 01/19 at 21:00 Furosemide (Lasix) 80 mg DAILY PO Last administered on 06/19/17 07:38; Start 06/13/17 at 09:00 Gabapentin (Neurontin) 300 mg QID PO Last administered on 06/19/17 19:49; Start 06/12/17 at 17:00 Acetaminophen/ Hydrocodone Bitart (Lortab 7.5/325) 1 tab PRN Q6HRS PRN PO PAIN ; Start 06/12/17 at 16:45 Albuterol/ Ipratropium (Duoneb) 3 ml RTQID NEB Last administered on 06/19/17at 15:42; Start 06/12/17 at 20:00 Lubiprostone (Amitiza) 24 mcg BIDWMEALS PO Last administered on 06/19/17 17:46 ; Start 06/12/17 at 17:00 Metformin HCl (Glucophage) 500 mg BIDWMEALS PO Last administered on 06/19/17 17:47; Start 06/12/17 at 17:00 Montelukast Sodium (Singulair) 10 mg QHS PO Last administered on 06/19/17 19: 50; Start 06/12/17 at 21:00 Pantoprazole Sodium (Protonix) 40 mg DAILYAC PO Last administered on 06/19/17 07:38; Start 06/13/17 at 07:30 Phenytoin Sodium (Dilantin) 400 mg QHS PO Last administered on 06/19/17at 19:47 ; Start 06/12/17 at 21:00 Potassium Chloride (Klor-Con) 20 meq BID PO Last administered on 06/14/17at 08: 26; Start 06/12/17 at 21:00; Stop 06/14/17 at 16:26; Status DC Primidone (Mysoline) 125 mg QID PO Last administered on 06/19/17at 19:49; Start 06/12/17 at 17:00 Quetiapine Fumarate (SEROquel) 25 mg TIDAC PO ; Start 06/13/17 at 07:30; Stop at 07:30; Status DC Azelastine HCl (Astelin) 2 spray PRN BID PRN NS ALLERGIES Last administered on 06/13/17at 08:57; Start 06/12/17 at 21:00 Non-Formulary Medication (Fluticasone/ Umeclidin/ Vilanter (Trelegy Ellipta 100- 62.5-25)) 1 each DAILY IH Last administered on 06/19/17at 07:38; Start 06/13/17 at 09:00 Lactulose (Lactulose) 20 gm QID PO Last administered on 06/15/17at 20:22; Start 06/12/17 at 21:00; Stop 06/16/17 at 18:55; Status DC Non-Formulary Medication (Levomilnacipran Hydrochloride (Fetzima)) 80 mg DAILY PO Last administered on 06/19/17at 07:37; Start 06/13/17 at 09:00 Meclizine HCl (Antivert) 25 mg PRN QID PRN PO DIZZINESS; Start 06/12/17 at 17: 30 Mirtazapine (Remeron) 22.5 mg QHS PO Last administered on 06/12/17at 20:36; Start 06/12/17 at 21:00; Stop 06/13/17 at 10:38; Status DC Insulin Aspart (NovoLOG) 0-7 UNITS QIDACHS SQ Last administered on 06/18/17at 12 :01; Start 06/12/17 at 21:00 Dextrose 12.5 gm PRN Q15MIN PRN IV SEE COMMENTS; Start 06/12/17 at 17:15 Quetiapine Fumarate (SEROquel) 50 mg QHS PO Last administered on 06/19/17 19: 49; Start 06/13/17 at 21:00 Potassium Chloride (Klor-Con) 20 meq TID PO Last administered on 06/19/17 19: 50; Start 06/14/17 at 21:00 Diclofenac Sodium (Voltaren) 1 tosin PRN QHS PRN TP PAIN Last administered on 20:39; Start 06/14/17 at 21:45 Diazepam (Valium) 5 mg QHS PO Last administered on 06/19/17 19:51; Start 06/15 at 21:00 Divalproex Sodium (Depakote Er) 500 mg QHS PO Last administered on 06/17/17 19 :31; Start 06/15/17 at 21:00; Stop 06/18/17 at 19:12; Status DC Diazepam (Valium) 1.5 mg QHS PO Last administered on 06/19/17 19:51; Start at 21:00 Lactulose (Lactulose) 20 gm QID PO Last administered on 06/19/17 19:46; Start 06/18/17 at 09:00 Active Scripts Active Metformin Hcl 500 Mg Tablet 500 Mg PO BIDWMEALS 90 Days Albuterol Sulfate Neb Soln (Albuterol Sulfate) 2.5 Mg/3 Ml Vial.neb 2.5 Mg NEB PRN Q6HRS PRN 30 Days Reported Cymbalta (Duloxetine Hcl) 30 Mg Capsule.dr 30 Mg PO DAILY Cymbalta (Duloxetine Hcl) 20 Mg Capsule.dr 20 Mg PO DAILY Duoneb 0.5-3(2.5) Mg/3 Ml (Albuterol/Ipratropium) 3 Ml Ampul.neb 3 Ml NEB RTQID Seroquel (Quetiapine Fumarate) 25 Mg Tablet 25 Mg PO TID Amitiza (Lubiprostone) 24 Mcg Capsule 24 Mcg PO BIDWMEALS Lactulose 10 Gm/15 Ml Solution 20 Gm PO QID Meclizine Hcl 25 Mg Tablet 1 Tab PO QID PRN LAST DOSE GIVEN: DATE: TIME: NEXT DOSE DUE: DATE: TIME: Trelegy Ellipta 100-62.5-25 (Fluticasone/Umeclidin/Vilanter) 1 Each Blst.w.dev 1 Each IH DAILY Gabapentin 300 Mg Capsule 300 Mg PO QID Primidone 50 Mg Tablet 125 Mg PO QID Astepro (Azelastine Hcl) 205.5 Mcg/0.137 Ml [place].pump 2 Spr NS BID PRN LAST DOSE GIVEN: DATE: TODAY TIME: AM NEXT DOSE DUE: DATE: TODAY TIME: PM Ventolin Hfa Inhaler (Albuterol Sulfate) 18 Gm Hfa.aer.ad 1 Puff IH PRN QID PRN LAST DOSE GIVEN: NOT GIVEN THIS ADMISSION NEXT DOSE DUE: DATE: TODAY TIME: IF NEEDED Fetzima (Levomilnacipran Hydrochloride) 80 Mg Cap.sa.24h 80 Mg PO DAILY LAST DOSE GIVEN: DATE: TODAY TIME: AM NEXT DOSE DUE: DATE: TOMORROW TIME: AM Remeron (Mirtazapine) 45 Mg Tablet 22.5 Mg PO QHS LAST DOSE GIVEN: DATE: YESTER TIME: AT BEDTIME NEXT DOSE DUE: DATE: TODAY TIME: AT BEDTIME Furosemide 80 Mg Tablet 80 Mg PO DAILY LAST DOSE GIVEN: DATE: TODAY TIME: AM NEXT DOSE DUE: DATE: TOMORROW TIME: AM Abilify (Aripiprazole) 5 Mg Tablet 1 Tab PO QHS LAST DOSE GIVEN: DATE: YESTER TIME: AT BEDTIME NEXT DOSE DUE: DATE: TODAY TIME: AT BEDTIME Hydrocodone-Apap 7.5-325 (Hydrocodone Bit/Acetaminophen) 1 Each Tablet 1 Tab PO PRN Q6HRS PRN LAST DOSE GIVEN: NOT GIVEN TODAY NEXT DOSE DUE: DATE: TODAY TIME: IF NEEDED TIME: IF AND WHEN NEEDED Klor-Con M20 (Potassium Chloride) 20 Meq Tab.er.prt 20 Meq PO BID LAST DOSE GIVEN: DATE: TODAY TIME: AM NEXT DOSE DUE: DATE: TODAY TIME: PM Montelukast Sodium Tablet (Montelukast Sodium) 10 Mg Tablet 10 Mg PO QHS LAST DOSE GIVEN: DATE: YESTER TIME: AT BEDTIME NEXT DOSE DUE: DATE: TODAY TIME: AT BEDTIME Protonix (Pantoprazole Sodium) 40 Mg Tablet.dr 40 Mg PO DAILYAC LAST DOSE GIVEN: DATE: TODAY TIME: BEFORE BREAKFAST NEXT DOSE DUE: DATE: TOMORROW TIME: BEFORE BREAKFAST Dilantin (Phenytoin Sodium Extended) 100 Mg Capsule 400 Mg PO QHS LAST DOSE GIVEN: DATE: YESTERDAY TIME: AT BEDTIME NEXT DOSE DUE: DATE: TODAY TIME: AT BEDTIME Aspirin 81 Mg Tab.chew 81 Mg PO DAILY LAST DOSE GIVEN: DATE: TODAY TIME: AM NEXT DOSE DUE: DATE: TOMORROW TIME: AM Zetia (Ezetimibe) 10 Mg Tablet 10 Mg PO QHS LAST DOSE GIVEN: DATE: YESTER TIME: AT BEDTIME NEXT DOSE DUE: DATE: TODAY TIME: AT BEDTIME Diazepam 5 Mg Tablet 7.5 Mg PO QHS LAST DOSE GIVEN: DATE: YESTER TIME: AT BEDTIME NEXT DOSE DUE: DATE: TODAY TIME: AT BEDTIME Diazepam 5 Mg Tablet 2.5 Mg PO BIDAFTMEAL LAST DOSE GIVEN: DATE: TODAY TIME: AM NEXT DOSE DUE: DATE: TODAY TIME: AFTERNOON I have reviewed the current psychotropics carefully including drug interactions. Risk benefit ratio favors no change other than as noted in my dictated progress note. Diagnosis: Problems: (1) Anxiety disorder (2) Anxiety disorder (3) Impulse control disorder (4) Major depressive disorder, recurrent episode (5) Major depressive disorder, recurrent episode (6) Bipolar affective, mixed, severe (7) Mood disorder (8) Depression (9) Suicidal ideation SMILEY BETH MD Jun 19, 2017 21:17
--- NOTE | 2017-06-20 01:01 | NUR ---
Behavior Intervention Response and Plan: BIRP Note: Behavior: Assumed Care of patient, patient located in Patient Room at shift change. Patient exhibited the following behavior Disorganized, Withdrawn, Drowsy. Brief assessment on rounds of vital signs, medication needs, lab studies, and pain. Treatment plan problems 1-2. Intervention: Patient assessed and the following interventions initiated safety checks 15 Minute Checks Cognitive Assessment , Head to toe Assessment , Medications. Response: After interactions and interventions patient responded in the following manner, Calm , Cooperative ,Drowsy. Continue to assess behaviors and condition will continue to monitor throughout the shift as needed. Patient educated on ADL's, and hand hygiene. 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 Continue to assess patient for changes in above assessment. Monitor for medication needs, pain, and safety concerns. Hourly rounding performed to ensure safe environment.
[2017-06-20] MEDS: IPRATRPIUM/ALBUTEROL 0.5/2.5MG 3 ML NEBU. NEB SCH ×4 (04:49→21:08)
[2017-06-20 05:50] VITALS: BP 136/60
[2017-06-20] MEDS: INSULIN ASPART 300 UNITS/3 ML INSULN.PEN SQ SCH ×4 (07:30→20:51)
[2017-06-20 08:01] LABS: ALBUMIN 3.1 g/dL (3.4-5.0); ALBUMIN/GLOBULIN RATIO 0.7 (1.0-1.7); BASO % 1 % (0-3); CALCIUM 8.8 mg/dL (8.5-10.1); CREATININE 0.9 mg/dL (0.6-1.0); EOS # 0.3 x10^3/uL (0.0-0.7); EOS % 5 % (0-3); GFR 62.6; HEMATOCRIT 35.8 % (36.0-47.0); HEMOGLOBIN 12.3 g/dL (12.0-15.5); LYMPH # 2.2 x10^3/uL (1.0-4.8); LYMPH % 33 % (24-48); MEAN CORPUSCULAR HEMOGLOBIN 31 pg (25-35); MEAN CORPUSCULAR HGB CONC 34 g/dL (31-37); MEAN CORPUSCULAR VOLUME 91 fL (79-100); MONO # 0.6 x10^3/uL (0.0-1.1); MONO % 9 % (0-9); NEUT # 3.5 x10^3uL (1.8-7.7); NEUT % 52 % (31-73); PLATELET COUNT 211 x10^3/uL (140-400); POTASSIUM 3.9 mmol/L (3.5-5.1); RED BLOOD COUNT 3.94 x10^6/uL (3.50-5.40); TOTAL BILIRUBIN 0.4 mg/dL (0.2-1.0); TOTAL PROTEIN 7.7 g/dL (6.4-8.2); WHITE BLOOD COUNT 6.6 x10^3/uL (4.0-11.0)
[2017-06-20] MEDS: LEVOMILNACIPRAN HYDROCHLORIDE 80 MG PO SCH (08:20)
[2017-06-20] MEDS: LUBIPROSTONE 24 MCG CAPSULE PO SCH ×2 (08:20→17:02)
[2017-06-20] MEDS: PANTOPRAZOLE 40 MG TABLET. PO SCH (08:21)
[2017-06-20] MEDS: DULoxetine HCL 30 MG CAPSULE.DR PO SCH (08:21)
[2017-06-20] MEDS: metFORMIN 500 MG TABLET PO SCH ×2 (08:21→17:01)
[2017-06-20] MEDS: Fluticasone/Umeclidin/Vilanter (Trelegy Ellipta 100-62.5-25) IH SCH (08:21)
[2017-06-20] MEDS: PRIMIDONE 50 MG TABLET PO SCH ×4 (08:21→20:43)
[2017-06-20] MEDS: DULoxetine HCL 20 MG CAPSULE.DR PO SCH (08:21)
[2017-06-20] MEDS: ASPIRIN 81 MG TAB.CHEW PO SCH (08:21)
[2017-06-20] MEDS: POTASSIUM CHLORIDE 20 MEQ TABLET.ER. PO SCH ×3 (08:22→20:43)
[2017-06-20] MEDS: LACTULOSE 20 GM/30 ML SOLUTION. PO SCH ×4 (08:22→20:44)
[2017-06-20] MEDS: FUROSEMIDE 80 MG TABLET PO SCH (08:22)
[2017-06-20] MEDS: GABAPENTIN 300 MG CAPSULE. PO SCH ×4 (08:22→20:43)
[2017-06-20] MEDS: diazePAM 5 MG TABLET PO SCH ×3 (08:23→20:48)
--- NOTE | 2017-06-20 10:40 | NUR ---
Behavior Intervention Response and Plan: BIRP Note: Behavior: Assumed Care of patient, patient located in Day Room at shift change. Patient exhibited the following behavior Disorganized, Restless, Drowsy. Brief assessment on rounds of vital signs, medication needs, lab studies, and pain. Treatment plan problems 1 & 2. Intervention: Patient assessed and the following interventions initiated safety checks 15 Minute Checks Cognitive Assessment , Head to toe Assessment , Medications. Response: After interactions and interventions patient responded in the following manner, Calm , Compliant ,Appropriate. Continue to assess behaviors and condition will continue to monitor throughout the shift as needed. Patient educated on ADL's, and hand hygiene. 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 Continue to assess patient for changes in above assessment. Monitor for medication needs, pain, and safety concerns. Hourly rounding performed to ensure safe environment.
--- NOTE | 2017-06-20 15:53 | NUR ---
SW met w/pt to check in on pt's overall feeling of progress and affect. Pt appeared to be making slow improvement w/affect as pt's speech was less pressured, eye contact was improved and tone was slightly less monotone. Pt reported "feeling better", and hopes to be able to continue making improvement and target returning to skilled and then home starting next week. SW encouraged pt to take her goals daily, and to focus on small improvements and not to moore her progress. Pt appreciated the advice from COCO. COCO also stated pt's attempted to visit earlier in the day and would return during 4:00 visiting hours. Pt smiled and thanked COCO.
[2017-06-20 16:17] VITALS: BP 139/81
[2017-06-20] MEDS: PHENYTOIN SODIUM EXTENDED 100 MG CAPSULE PO SCH (20:42)
[2017-06-20] MEDS: EZETIMIBE 10 MG TABLET PO SCH (20:43)
[2017-06-20] MEDS: MONTELUKAST 10 MG TABLET. PO SCH (20:43)
[2017-06-20] MEDS: QUEtiapine 50 MG TABLET. PO SCH (20:43)
[2017-06-20] MEDS: diazePAM 2 MG TABLET PO SCH (20:48)
--- NOTE | 2017-06-20 21:02 | PDOC ---
Exam Note: Morales Note: Please also refer to the separate dictated note~for this date of service dictated separately.~Patient seen individually. Discussed the patient with Nursing staff reviewed the chart.~Reviewed interim history and current functioning. Reviewed vital signs,~Labs/ Radiology~and current medications noted below. Continue current treatment with the changes noted in the dictated addendum note Assessment: Vital Signs: Vital Signs Date Time Temp Pulse Resp B/P (MAP) Pulse Ox O2 Delivery O2 Flow Rate FiO2 06/20/17 20:25 96 Room Air 06/20/17 16:17 97.7 102 14 139/81 (100) I&O Intake and Output 06/20/17 07:00 Intake Total 1200 ml Balance 1200 ml Intake Oral 1200 ml Labs: Laboratory Tests Test 06/20/17 06:57 06/20/17 07:09 06/20/17 11:28 06/20/17 16:37 White Blood Count 6.6 x10^3/uL (4.0-11.0) Red Blood Count 3.94 x10^6/uL (3.50-5.40) Hemoglobin 12.3 g/dL (12.0-15.5) Hematocrit 35.8 % (36.0-47.0) L Mean Corpuscular Volume 91 fL (79-100) Mean Corpuscular Hemoglobin 31 pg (25-35) Mean Corpuscular Hemoglobin Concent 34 g/dL (31-37) Red Cell Distribution Width 16.0 % (11.5-14.5) H Platelet Count 211 x10^3/uL (140-400) Neutrophils (%) (Auto) 52 % (31-73) Lymphocytes (%) (Auto) 33 % (24-48) Monocytes (%) (Auto) 9 % (0-9) Eosinophils (%) (Auto) 5 % (0-3) H Basophils (%) (Auto) 1 % (0-3) Neutrophils # (Auto) 3.5 x10^3uL (1.8-7.7) Lymphocytes # (Auto) 2.2 x10^3/uL (1.0-4.8) Monocytes # (Auto) 0.6 x10^3/uL (0.0-1.1) Eosinophils # (Auto) 0.3 x10^3/uL (0.0-0.7) Basophils # (Auto) 0.0 x10^3/uL (0.0-0.2) Sodium Level 142 mmol/L (136-145) Potassium Level 3.9 mmol/L (3.5-5.1) Chloride Level 101 mmol/L (98-107) Carbon Dioxide Level 31 mmol/L (21-32) Anion Gap 10 (6-14) Blood Urea Nitrogen 14 mg/dL (7-20) Creatinine 0.9 mg/dL (0.6-1.0) Estimated GFR (Cockcroft-Gault) 62.6 BUN/Creatinine Ratio 16 (6-20) Glucose Level 110 mg/dL (70-99) H Calcium Level 8.8 mg/dL (8.5-10.1) Total Bilirubin 0.4 mg/dL (0.2-1.0) Aspartate Amino Transferase (AST) 20 U/L (15-37) Alanine Aminotransferase (ALT) 23 U/L (14-59) Alkaline Phosphatase 186 U/L (46-116) H Ammonia 87 mcmol/L (11-34) H Total Protein 7.7 g/dL (6.4-8.2) Albumin 3.1 g/dL (3.4-5.0) L Albumin/Globulin Ratio 0.7 (1.0-1.7) L Glucose (Fingerstick) 112 mg/dL (70-99) H 91 mg/dL (70-99) 114 mg/dL (70-99) H Test 06/20/17 19:11 Glucose (Fingerstick) 140 mg/dL (70-99) H Current Medications: Meds: Current Medications Acetaminophen (Tylenol) 650 mg PRN Q6HRS PRN PO PAIN / TEMP; Start 06/12/17 at 16:45 Multi-Ingredient Ointment (Analgesic [place]) 1 tosin PRN QID PRN TP MUSCLE PAIN; Start 06/12/17 at 16:45 Al Hydroxide/Mg Hydroxide (Mylanta Plus Xs) 15 ml PRN AFTMEALHC PRN PO DYSPEPSIA; Start 06/12/17 at 16:45 Magnesium Hydroxide (Milk Of Magnesia) 2,400 mg PRN QHS PRN PO CONSTIPATION; Start 06/12/17 at 16:45 Albuterol Sulfate (Ventolin) 2.5 mg PRN Q6HRS PRN NEB SHORTNESS OF BREATH Last administered on 06/15/17 06:00; Start 06/12/17 at 16:45 Albuterol Sulfate (Ventolin Hfa) 1 puff PRN QID PRN IH FOR ASTHMA; Start at 16:45; Status UNV Aspirin (Children'S Aspirin) 81 mg DAILY PO Last administered on 06/20/17 08: 21; Start 06/13/17 at 09:00 Diazepam (Valium) 2.5 mg BIDAFTMEAL PO Last administered on 06/20/17 17:01; Start 06/12/17 at 18:00 Diazepam (Valium) 7.5 mg QHS PO Last administered on 06/14/17 20:24; Start 01/19 at 21:00; Stop 06/15/17 at 19:22; Status DC Duloxetine HCl (Cymbalta) 20 mg DAILY PO Last administered on 06/20/17 08:21; Start 06/13/17 at 09:00 Duloxetine HCl (Cymbalta) 30 mg DAILY PO Last administered on 06/20/17 08:21; Start 06/13/17 at 09:00 EZETIMIBE (Zetia) 10 mg QHS PO Last administered on 06/20/17 20:43; Start 01/19 at 21:00 Furosemide (Lasix) 80 mg DAILY PO Last administered on 06/20/17 08:22; Start 06/13/17 at 09:00 Gabapentin (Neurontin) 300 mg QID PO Last administered on 06/20/17 20:43; Start 06/12/17 at 17:00 Acetaminophen/ Hydrocodone Bitart (Lortab 7.5/325) 1 tab PRN Q6HRS PRN PO PAIN ; Start 06/12/17 at 16:45 Albuterol/ Ipratropium (Duoneb) 3 ml RTQID NEB Last administered on 06/20/17 16:34; Start 06/12/17 at 20:00 Lubiprostone (Amitiza) 24 mcg BIDWMEALS PO Last administered on 06/20/17 17:02 ; Start 06/12/17 at 17:00 Metformin HCl (Glucophage) 500 mg BIDWMEALS PO Last administered on 06/20/17 17:01; Start 06/12/17 at 17:00 Montelukast Sodium (Singulair) 10 mg QHS PO Last administered on 06/20/17 20: 43; Start 06/12/17 at 21:00 Pantoprazole Sodium (Protonix) 40 mg DAILYAC PO Last administered on 06/20/17 08:21; Start 06/13/17 at 07:30 Phenytoin Sodium (Dilantin) 400 mg QHS PO Last administered on 06/20/17 20:42 ; Start 06/12/17 at 21:00 Potassium Chloride (Klor-Con) 20 meq BID PO Last administered on 06/14/17 08: 26; Start 06/12/17 at 21:00; Stop 06/14/17 at 16:26; Status DC Primidone (Mysoline) 125 mg QID PO Last administered on 06/20/17 20:43; Start 06/12/17 at 17:00 Quetiapine Fumarate (SEROquel) 25 mg TIDAC PO ; Start 06/13/17 at 07:30; Stop at 07:30; Status DC Azelastine HCl (Astelin) 2 spray PRN BID PRN NS ALLERGIES Last administered on 06/13/17 08:57; Start 06/12/17 at 21:00 Non-Formulary Medication (Fluticasone/ Umeclidin/ Vilanter (Trelegy Ellipta 100- 62.5-25)) 1 each DAILY IH Last administered on 06/20/17 08:21; Start 06/13/17 at 09:00 Lactulose (Lactulose) 20 gm QID PO Last administered on 06/15/17at 20:22; Start 06/12/17 at 21:00; Stop 06/16/17 at 18:55; Status DC Non-Formulary Medication (Levomilnacipran Hydrochloride (Fetzima)) 80 mg DAILY PO Last administered on 06/20/17 08:20; Start 06/13/17 at 09:00 Meclizine HCl (Antivert) 25 mg PRN QID PRN PO DIZZINESS; Start 06/12/17 at 17: 30 Mirtazapine (Remeron) 22.5 mg QHS PO Last administered on 4/11/18at 20:36; Start 06/12/17 at 21:00; Stop 06/13/17 at 10:38; Status DC Insulin Aspart (NovoLOG) 0-7 UNITS QIDACHS SQ Last administered on 06/18/17at 12 :01; Start 06/12/17 at 21:00 Dextrose 12.5 gm PRN Q15MIN PRN IV SEE COMMENTS; Start 06/12/17 at 17:15 Quetiapine Fumarate (SEROquel) 50 mg QHS PO Last administered on 06/20/17at 20: 43; Start 06/13/17 at 21:00 Potassium Chloride (Klor-Con) 20 meq TID PO Last administered on 06/20/17 20: 43; Start 06/14/17 at 21:00 Diclofenac Sodium (Voltaren) 1 tosin PRN QHS PRN TP PAIN Last administered on at 20:39; Start 06/14/17 at 21:45 Diazepam (Valium) 5 mg QHS PO Last administered on 06/20/17at 20:48; Start 06/15 at 21:00 Divalproex Sodium (Depakote Er) 500 mg QHS PO Last administered on 06/17/17 19 :31; Start 06/15/17 at 21:00; Stop 06/18/17 at 19:12; Status DC Diazepam (Valium) 1.5 mg QHS PO Last administered on 06/20/17 20:48; Start at 21:00 Lactulose (Lactulose) 20 gm QID PO Last administered on 06/20/17at 20:44; Start 06/18/17 at 09:00 Active Scripts Active Metformin Hcl 500 Mg Tablet 500 Mg PO BIDWMEALS 90 Days Albuterol Sulfate Neb Soln (Albuterol Sulfate) 2.5 Mg/3 Ml Vial.neb 2.5 Mg NEB PRN Q6HRS PRN 30 Days Reported Cymbalta (Duloxetine Hcl) 30 Mg Capsule.dr 30 Mg PO DAILY Cymbalta (Duloxetine Hcl) 20 Mg Capsule.dr 20 Mg PO DAILY Duoneb 0.5-3(2.5) Mg/3 Ml (Albuterol/Ipratropium) 3 Ml Ampul.neb 3 Ml NEB RTQID Seroquel (Quetiapine Fumarate) 25 Mg Tablet 25 Mg PO TID Amitiza (Lubiprostone) 24 Mcg Capsule 24 Mcg PO BIDWMEALS Lactulose 10 Gm/15 Ml Solution 20 Gm PO QID Meclizine Hcl 25 Mg Tablet 1 Tab PO QID PRN LAST DOSE GIVEN: DATE: TIME: NEXT DOSE DUE: DATE: TIME: Trelegy Ellipta 100-62.5-25 (Fluticasone/Umeclidin/Vilanter) 1 Each Blst.w.dev 1 Each IH DAILY Gabapentin 300 Mg Capsule 300 Mg PO QID Primidone 50 Mg Tablet 125 Mg PO QID Astepro (Azelastine Hcl) 205.5 Mcg/0.137 Ml [place].pump 2 Spr NS BID PRN LAST DOSE GIVEN: DATE: TODAY TIME: AM NEXT DOSE DUE: DATE: TODAY TIME: PM Ventolin Hfa Inhaler (Albuterol Sulfate) 18 Gm Hfa.aer.ad 1 Puff IH PRN QID PRN LAST DOSE GIVEN: NOT GIVEN THIS ADMISSION NEXT DOSE DUE: DATE: TODAY TIME: IF NEEDED Fetzima (Levomilnacipran Hydrochloride) 80 Mg Cap.sa.24h 80 Mg PO DAILY LAST DOSE GIVEN: DATE: TODAY TIME: AM NEXT DOSE DUE: DATE: TOMORROW TIME: AM Remeron (Mirtazapine) 45 Mg Tablet 22.5 Mg PO QHS LAST DOSE GIVEN: DATE: YESTERDAY TIME: AT BEDTIME NEXT DOSE DUE: DATE: TODAY TIME: AT BEDTIME Furosemide 80 Mg Tablet 80 Mg PO DAILY LAST DOSE GIVEN: DATE: TODAY TIME: AM NEXT DOSE DUE: DATE: TOMORROW TIME: AM Abilify (Aripiprazole) 5 Mg Tablet 1 Tab PO QHS LAST DOSE GIVEN: DATE: YESTERDAY TIME: AT BEDTIME NEXT DOSE DUE: DATE: TODAY TIME: AT BEDTIME Hydrocodone-Apap 7.5-325 (Hydrocodone Bit/Acetaminophen) 1 Each Tablet 1 Tab PO PRN Q6HRS PRN LAST DOSE GIVEN: NOT GIVEN TODAY NEXT DOSE DUE: DATE: TODAY TIME: IF NEEDED TIME: IF AND WHEN NEEDED Klor-Con M20 (Potassium Chloride) 20 Meq Tab.er.prt 20 Meq PO BID LAST DOSE GIVEN: DATE: TODAY TIME: AM NEXT DOSE DUE: DATE: TODAY TIME: PM Montelukast Sodium Tablet (Montelukast Sodium) 10 Mg Tablet 10 Mg PO QHS LAST DOSE GIVEN: DATE: YESTER TIME: AT BEDTIME NEXT DOSE DUE: DATE: TODAY TIME: AT BEDTIME Protonix (Pantoprazole Sodium) 40 Mg Tablet.dr 40 Mg PO DAILYAC LAST DOSE GIVEN: DATE: TODAY TIME: BEFORE BREAKFAST NEXT DOSE DUE: DATE: TOMORROW TIME: BEFORE BREAKFAST Dilantin (Phenytoin Sodium Extended) 100 Mg Capsule 400 Mg PO QHS LAST DOSE GIVEN: DATE: YESTER TIME: AT BEDTIME NEXT DOSE DUE: DATE: TODAY TIME: AT BEDTIME Aspirin 81 Mg Tab.chew 81 Mg PO DAILY LAST DOSE GIVEN: DATE: TODAY TIME: AM NEXT DOSE DUE: DATE: TOMORR TIME: AM Zetia (Ezetimibe) 10 Mg Tablet 10 Mg PO QHS LAST DOSE GIVEN: DATE: YESTER TIME: AT BEDTIME NEXT DOSE DUE: DATE: TIME: AT BEDTIME Diazepam 5 Mg Tablet 7.5 Mg PO QHS LAST DOSE GIVEN: DATE: YES TIME: AT BEDTIME NEXT DOSE DUE: DATE: TODAY TIME: AT BEDTIME Diazepam 5 Mg Tablet 2.5 Mg PO BIDAFTMEAL LAST DOSE GIVEN: DATE: TODAY TIME: AM NEXT DOSE DUE: DATE: TODAY TIME: AFTERNOON I have reviewed the current psychotropics carefully including drug interactions. Risk benefit ratio favors no change other than as noted in my dictated progress note. Diagnosis: Problems: (1) Anxiety disorder (2) Anxiety disorder (3) Impulse control disorder (4) Major depressive disorder, recurrent episode (5) Major depressive disorder, recurrent episode (6) Bipolar affective, mixed, severe (7) Mood disorder (8) Generalized weakness (9) Depression (10) Suicidal ideation SMILEY BETH MD Jun 20, 2017 21:01
--- NOTE | 2017-06-21 00:33 | NUR ---
Behavior Intervention Response and Plan: BIRP Note: Behavior: Assumed Care of patient, patient located in Patient Room at shift change. Patient exhibited the following behavior Calm, Compliant, Cooperative. Brief assessment on rounds of vital signs, medication needs, lab studies, and pain. Treatment plan problems Alteration in Mood and Fall Risk. Intervention: Patient assessed and the following interventions initiated safety checks 15 Minute Checks Cognitive Assessment , Medications , Oral Hydration. Response: After interactions and interventions patient responded in the following manner, Calm , Compliant ,Cooperative. Continue to assess behaviors and condition will continue to monitor throughout the shift as needed. Patient educated on ADL's, and hand hygiene. Plan: Continue to monitor Master Treatment Plan for patient's progress toward short term goals of Decreased Agitation, Decreased Anxiety, residential goals to return to previous living setting vs placement. Continue to assess patient for changes in above assessment. Monitor for medication needs, pain, and safety concerns. Hourly rounding performed to ensure safe environment.
[2017-06-21] MEDS: IPRATRPIUM/ALBUTEROL 0.5/2.5MG 3 ML NEBU. NEB SCH ×4 (05:12→21:04)
[2017-06-21 05:56] VITALS: BP 124/72
[2017-06-21] MEDS: INSULIN ASPART 300 UNITS/3 ML INSULN.PEN SQ SCH ×4 (07:30→20:48)
[2017-06-21] MEDS: metFORMIN 500 MG TABLET PO SCH ×2 (08:01→16:59)
[2017-06-21] MEDS: LACTULOSE 20 GM/30 ML SOLUTION. PO SCH ×4 (08:01→20:46)
[2017-06-21] MEDS: ASPIRIN 81 MG TAB.CHEW PO SCH (08:02)
[2017-06-21] MEDS: PANTOPRAZOLE 40 MG TABLET. PO SCH (08:02)
[2017-06-21] MEDS: POTASSIUM CHLORIDE 20 MEQ TABLET.ER. PO SCH ×3 (08:02→20:46)
[2017-06-21] MEDS: GABAPENTIN 300 MG CAPSULE. PO SCH ×4 (08:02→20:47)
[2017-06-21] MEDS: FUROSEMIDE 80 MG TABLET PO SCH (08:02)
[2017-06-21] MEDS: DULoxetine HCL 20 MG CAPSULE.DR PO SCH (08:02)
[2017-06-21] MEDS: DULoxetine HCL 30 MG CAPSULE.DR PO SCH (08:02)
[2017-06-21] MEDS: LEVOMILNACIPRAN HYDROCHLORIDE 80 MG PO SCH (08:07)
[2017-06-21] MEDS: AZELASTINE NASAL SPRAY 30ML BOTTLE. NS PRN (08:07)
[2017-06-21] MEDS: diazePAM 5 MG TABLET PO SCH ×3 (08:07→20:50)
[2017-06-21] MEDS: LUBIPROSTONE 24 MCG CAPSULE PO SCH ×2 (08:08→16:59)
[2017-06-21] MEDS: Fluticasone/Umeclidin/Vilanter (Trelegy Ellipta 100-62.5-25) IH SCH (08:09)
[2017-06-21] MEDS: PRIMIDONE 50 MG TABLET PO SCH ×4 (08:14→20:47)
--- NOTE | 2017-06-21 11:49 | NUR ---
Behavior Intervention Response and Plan: BIRP Note: Behavior: Assumed Care of patient, patient located in Day Room at shift change. Patient exhibited the following behavior Calm, Able to Focus on Task, Compliant. Brief assessment on rounds of vital signs, medication needs, lab studies, and pain. Treatment plan problems . Intervention: Patient assessed and the following interventions initiated safety checks 15 Minute Checks Cognitive Assessment , Head to toe Assessment , Medications. Response: After interactions and interventions patient responded in the following manner, Calm , Disorganized ,Cooperative. Continue to assess behaviors and condition will continue to monitor throughout the shift as needed. Patient educated on ADL's, and hand hygiene. Plan: Continue to monitor Master Treatment Plan for patient's progress toward short term goals of Decreased Anxiety, No harm To self/ others, long term care administrator goals to return to previous living setting vs placement. Continue to assess patient for changes in above assessment. Monitor for medication needs, pain, and safety concerns. Hourly rounding performed to ensure safe environment.
--- NOTE | 2017-06-21 12:58 | NUR ---
SW checked in w/pt during lunch to continue to monitor progress. Pt appears to continue to make small improvements w/affect, smiled at SW, was able to eat most of her meal, reported to SW she was continuing to focus on taking things "one day at a time" and hopes to be able to target dc for sometime next week.
[2017-06-21] MEDS: HYDROcodone/APAP 7.5/325MG 1 TAB TABLET PO PRN (13:39)
[2017-06-21 16:14] VITALS: BP 130/67
--- NOTE | 2017-06-21 18:08 | NUR ---
Patient's daughter and requested that patient be explained to by Dr. Ervin her ammonia level- why/what to expect, what level he wants for discharge, etc. They state they feel "in the dark" about this and have never been explained as to why her ammonia levels got high, not even when she was on the med floor. would also like the nurse to call him after Dr. Ervin speaks to patient and pass along information. Nurse will pass information along in report and added this information to the report sheet.
[2017-06-21] MEDS: PHENYTOIN SODIUM EXTENDED 100 MG CAPSULE PO SCH (20:46)
[2017-06-21] MEDS: MONTELUKAST 10 MG TABLET. PO SCH (20:46)
[2017-06-21] MEDS: EZETIMIBE 10 MG TABLET PO SCH (20:46)
[2017-06-21] MEDS: QUEtiapine 50 MG TABLET. PO SCH (20:47)
[2017-06-21] MEDS: diazePAM 2 MG TABLET PO SCH (20:50)
--- NOTE | 2017-06-21 20:53 | PDOC ---
Exam Note: Morales Note: Please also refer to the separate dictated note~for this date of service dictated separately.~Patient seen individually. Discussed the patient with Nursing staff reviewed the chart.~Reviewed interim history and current functioning. Reviewed vital signs,~Labs/ Radiology~and current medications noted below. Continue current treatment with the changes noted in the dictated addendum note Assessment: Vital Signs: Vital Signs Date Time Temp Pulse Resp B/P (MAP) Pulse Ox O2 Delivery O2 Flow Rate FiO2 06/21/17 16:15 94 Room Air 06/21/17 16:14 97.8 97 18 130/67 (88) I&O Intake and Output 06/21/17 07:00 Intake Total 1800 ml Balance 1800 ml Intake Oral 1800 ml # Bowel Movements 1 Labs: Laboratory Tests Test 06/21/17 07:20 06/21/17 11:40 06/21/17 16:08 06/21/17 19:25 Glucose (Fingerstick) 111 mg/dL (70-99) H 104 mg/dL (70-99) H 101 mg/dL (70-99) H 122 mg/dL (70-99) H Current Medications: Meds: Current Medications Acetaminophen (Tylenol) 650 mg PRN Q6HRS PRN PO PAIN / TEMP; Start 06/12/17 at 16:45 Multi-Ingredient Ointment (Analgesic Caldwell) 1 tosin PRN QID PRN TP MUSCLE PAIN; Start 06/12/17 at 16:45 Al Hydroxide/Mg Hydroxide (Mylanta Plus Xs) 15 ml PRN AFTMEALHC PRN PO DYSPEPSIA; Start 06/12/17 at 16:45 Magnesium Hydroxide (Milk Of Magnesia) 2,400 mg PRN QHS PRN PO CONSTIPATION; Start 06/12/17 at 16:45 Albuterol Sulfate (Ventolin) 2.5 mg PRN Q6HRS PRN NEB SHORTNESS OF BREATH Last administered on 06/15/17at 06:00; Start 06/12/17 at 16:45 Albuterol Sulfate (Ventolin Hfa) 1 puff PRN QID PRN IH FOR ASTHMA; Start at 16:45; Status UNV Aspirin (Children'S Aspirin) 81 mg DAILY PO Last administered on 06/21/17at 08: 02; Start 06/13/17 at 09:00 Diazepam (Valium) 2.5 mg BIDAFTMEAL PO Last administered on 06/21/17 16:59; Start 06/12/17 at 18:00 Diazepam (Valium) 7.5 mg QHS PO Last administered on 06/14/17 20:24; Start 01/19 at 21:00; Stop 06/15/17 at 19:22; Status DC Duloxetine HCl (Cymbalta) 20 mg DAILY PO Last administered on 06/21/17 08:02; Start 06/13/17 at 09:00 Duloxetine HCl (Cymbalta) 30 mg DAILY PO Last administered on 06/21/17 08:02; Start 06/13/17 at 09:00 EZETIMIBE (Zetia) 10 mg QHS PO Last administered on 06/21/17 20:46; Start 01/19 at 21:00 Furosemide (Lasix) 80 mg DAILY PO Last administered on 06/21/17 08:02; Start 06/13/17 at 09:00 Gabapentin (Neurontin) 300 mg QID PO Last administered on 06/21/17 20:47; Start 06/12/17 at 17:00 Acetaminophen/ Hydrocodone Bitart (Lortab 7.5/325) 1 tab PRN Q6HRS PRN PO PAIN Last administered on 06/21/17 13:39; Start 06/12/17 at 16:45 Albuterol/ Ipratropium (Duoneb) 3 ml RTQID NEB Last administered on 06/21/17 16:14; Start 06/12/17 at 20:00 Lubiprostone (Amitiza) 24 mcg BIDWMEALS PO Last administered on 06/21/17 16:59 ; Start 06/12/17 at 17:00 Metformin HCl (Glucophage) 500 mg BIDWMEALS PO Last administered on 06/21/17 16:59; Start 06/12/17 at 17:00 Montelukast Sodium (Singulair) 10 mg QHS PO Last administered on 06/21/17 20: 46; Start 06/12/17 at 21:00 Pantoprazole Sodium (Protonix) 40 mg DAILYAC PO Last administered on 06/21/17 08:02; Start 06/13/17 at 07:30 Phenytoin Sodium (Dilantin) 400 mg QHS PO Last administered on 06/21/17at 20:46 ; Start 06/12/17 at 21:00 Potassium Chloride (Klor-Con) 20 meq BID PO Last administered on 06/14/17at 08: 26; Start 06/12/17 at 21:00; Stop 06/14/17 at 16:26; Status DC Primidone (Mysoline) 125 mg QID PO Last administered on 06/21/17at 20:47; Start 06/12/17 at 17:00 Quetiapine Fumarate (SEROquel) 25 mg TIDAC PO ; Start 06/13/17 at 07:30; Stop at 07:30; Status DC Azelastine HCl (Astelin) 2 spray PRN BID PRN NS ALLERGIES Last administered on 06/21/17at 08:07; Start 06/12/17 at 21:00 Non-Formulary Medication (Fluticasone/ Umeclidin/ Vilanter (Trelegy Ellipta 100- 62.5-25)) 1 each DAILY IH Last administered on 06/21/17at 08:09; Start 06/13/17 at 09:00 Lactulose (Lactulose) 20 gm QID PO Last administered on 06/15/17at 20:22; Start 06/12/17 at 21:00; Stop 06/16/17 at 18:55; Status DC Non-Formulary Medication (Levomilnacipran Hydrochloride (Fetzima)) 80 mg DAILY PO Last administered on 06/21/17at 08:07; Start 06/13/17 at 09:00 Meclizine HCl (Antivert) 25 mg PRN QID PRN PO DIZZINESS; Start 06/12/17 at 17: 30 Mirtazapine (Remeron) 22.5 mg QHS PO Last administered on 06/12/17at 20:36; Start 06/12/17 at 21:00; Stop 06/13/17 at 10:38; Status DC Insulin Aspart (NovoLOG) 0-7 UNITS QIDACHS SQ Last administered on 06/18/17at 12 :01; Start 06/12/17 at 21:00 Dextrose 12.5 gm PRN Q15MIN PRN IV SEE COMMENTS; Start 06/12/17 at 17:15 Quetiapine Fumarate (SEROquel) 50 mg QHS PO Last administered on 06/21/17 20: 47; Start 06/13/17 at 21:00 Potassium Chloride (Klor-Con) 20 meq TID PO Last administered on 06/21/17 20: 46; Start 06/14/17 at 21:00 Diclofenac Sodium (Voltaren) 1 tosin PRN QHS PRN TP PAIN Last administered on 20:39; Start 06/14/17 at 21:45 Diazepam (Valium) 5 mg QHS PO Last administered on 06/21/17 20:50; Start 06/15 at 21:00 Divalproex Sodium (Depakote Er) 500 mg QHS PO Last administered on 06/17/17 19 :31; Start 06/15/17 at 21:00; Stop 06/18/17 at 19:12; Status DC Diazepam (Valium) 1.5 mg QHS PO Last administered on 06/21/17 20:50; Start at 21:00 Lactulose (Lactulose) 20 gm QID PO Last administered on 06/21/17 20:46; Start 06/18/17 at 09:00 Active Scripts Active Metformin Hcl 500 Mg Tablet 500 Mg PO BIDWMEALS 90 Days Albuterol Sulfate Neb Soln (Albuterol Sulfate) 2.5 Mg/3 Ml Vial.neb 2.5 Mg NEB PRN Q6HRS PRN 30 Days Reported Cymbalta (Duloxetine Hcl) 30 Mg Capsule.dr 30 Mg PO DAILY Cymbalta (Duloxetine Hcl) 20 Mg Capsule.dr 20 Mg PO DAILY Duoneb 0.5-3(2.5) Mg/3 Ml (Albuterol/Ipratropium) 3 Ml Ampul.neb 3 Ml NEB RTQID Seroquel (Quetiapine Fumarate) 25 Mg Tablet 25 Mg PO TID Amitiza (Lubiprostone) 24 Mcg Capsule 24 Mcg PO BIDWMEALS Lactulose 10 Gm/15 Ml Solution 20 Gm PO QID Meclizine Hcl 25 Mg Tablet 1 Tab PO QID PRN LAST DOSE GIVEN: DATE: TIME: NEXT DOSE DUE: DATE: TIME: Trelegy Ellipta 100-62.5-25 (Fluticasone/Umeclidin/Vilanter) 1 Each Blst.w.dev 1 Each IH DAILY Gabapentin 300 Mg Capsule 300 Mg PO QID Primidone 50 Mg Tablet 125 Mg PO QID Astepro (Azelastine Hcl) 205.5 Mcg/0.137 Ml Alsip.pump 2 Spr NS BID PRN LAST DOSE GIVEN: DATE: TODAY TIME: AM NEXT DOSE DUE: DATE: TODAY TIME: PM Ventolin Hfa Inhaler (Albuterol Sulfate) 18 Gm Hfa.aer.ad 1 Puff IH PRN QID PRN LAST DOSE GIVEN: NOT GIVEN THIS ADMISSION NEXT DOSE DUE: DATE: TODAY TIME: IF NEEDED Fetzima (Levomilnacipran Hydrochloride) 80 Mg Cap.sa.24h 80 Mg PO DAILY LAST DOSE GIVEN: DATE: TODAY TIME: AM NEXT DOSE DUE: DATE: TOMORROW TIME: AM Remeron (Mirtazapine) 45 Mg Tablet 22.5 Mg PO QHS LAST DOSE GIVEN: DATE: YESTER TIME: AT BEDTIME NEXT DOSE DUE: DATE: TODAY TIME: AT BEDTIME Furosemide 80 Mg Tablet 80 Mg PO DAILY LAST DOSE GIVEN: DATE: TODAY TIME: AM NEXT DOSE DUE: DATE: TOMORROW TIME: AM Abilify (Aripiprazole) 5 Mg Tablet 1 Tab PO QHS LAST DOSE GIVEN: DATE: YESTER TIME: AT BEDTIME NEXT DOSE DUE: DATE: TODAY TIME: AT BEDTIME Hydrocodone-Apap 7.5-325 (Hydrocodone Bit/Acetaminophen) 1 Each Tablet 1 Tab PO PRN Q6HRS PRN LAST DOSE GIVEN: NOT GIVEN TODAY NEXT DOSE DUE: DATE: TODAY TIME: IF NEEDED TIME: IF AND WHEN NEEDED Klor-Con M20 (Potassium Chloride) 20 Meq Tab.er.prt 20 Meq PO BID LAST DOSE GIVEN: DATE: TODAY TIME: AM NEXT DOSE DUE: DATE: TODAY TIME: PM Montelukast Sodium Tablet (Montelukast Sodium) 10 Mg Tablet 10 Mg PO QHS LAST DOSE GIVEN: DATE: YESTERDAY TIME: AT BEDTIME NEXT DOSE DUE: DATE: TODAY TIME: AT BEDTIME Protonix (Pantoprazole Sodium) 40 Mg Tablet.dr 40 Mg PO DAILYAC LAST DOSE GIVEN: DATE: TODAY TIME: BEFORE BREAKFAST NEXT DOSE DUE: DATE: TOMORROW TIME: BEFORE BREAKFAST Dilantin (Phenytoin Sodium Extended) 100 Mg Capsule 400 Mg PO QHS LAST DOSE GIVEN: DATE: YESTERDAY TIME: AT BEDTIME NEXT DOSE DUE: DATE: TODAY TIME: AT BEDTIME Aspirin 81 Mg Tab.chew 81 Mg PO DAILY LAST DOSE GIVEN: DATE: TODAY TIME: AM NEXT DOSE DUE: DATE: TOMORROW TIME: AM Zetia (Ezetimibe) 10 Mg Tablet 10 Mg PO QHS LAST DOSE GIVEN: DATE: YESTER TIME: AT BEDTIME NEXT DOSE DUE: DATE: TODAY TIME: AT BEDTIME Diazepam 5 Mg Tablet 7.5 Mg PO QHS LAST DOSE GIVEN: DATE: YESTER TIME: AT BEDTIME NEXT DOSE DUE: DATE: TODAY TIME: AT BEDTIME Diazepam 5 Mg Tablet 2.5 Mg PO BIDAFTMEAL LAST DOSE GIVEN: DATE: TODAY TIME: AM NEXT DOSE DUE: DATE: TODAY TIME: AFTERNOON I have reviewed the current psychotropics carefully including drug interactions. Risk benefit ratio favors no change other than as noted in my dictated progress note. Diagnosis: Problems: (1) Anxiety disorder (2) Anxiety disorder (3) Impulse control disorder (4) Major depressive disorder, recurrent episode (5) Major depressive disorder, recurrent episode (6) Bipolar affective, mixed, severe (7) Mood disorder (8) Depression (9) Suicidal ideation SMILEY BETH MD Jun 21, 2017 20:53
--- NOTE | 2017-06-21 21:16 | PN ---
DATE: 06/20/2017 PSYCHIATRIC PROGRESS NOTE This is a late entry of 06/20/2017, covers elements not covered in my initial note 06/20/2017. SUBJECTIVE: I met with the patient the evening of 06/20/2017 and staffed at treatment team meeting with the entire team in the morning and her , Tip attended. She is ammonia has dropped to 87, alkaline phosphatase still elevated. had many concerns medically including clubbing of her fingers and I will defer to Dr. Ervin an outpatient and Dr. Porter and we will communicate her progress to Dr. Porter via nursing staff during this hospitalization. REVIEW OF SYSTEMS: No CV, , pulmonary, eye system symptoms on review. MENTAL STATUS EXAM: Oriented to herself situation. Cognitively much clearer. Abstraction fair, computation impaired, language function intact, attention span short. Mood and affect less labile. She is feeding herself for meals, which is an improvement. LABORATORY DATA: Reviewed. IMPRESSION: Bipolar 1 disorder, mixed with psychotic features. Rest unchanged. PLAN: Valium is being tapered. We have added Seroquel as a mood stabilizer. We will avoid Depakote, given her raised ammonia levels, but may consider Trileptal as a mood stabilizer. SMILEY BETH MD DR: CHRIS/elisa JOB#: [id number] / [id number]
--- NOTE | 2017-06-21 22:20 | PN ---
DATE: 06/19/2017 PSYCHIATRIC PROGRESS NOTE This is a late entry 06/19/2017, covers elements not covered in my initial note of 06/19/2017. SUBJECTIVE: I met with the patient evening of 06/19/2017. The patient is a little more alert and oriented, was trying to feed herself dinner and does not need nursing assistance for this. She is on lactulose 4 times a day. Ammonia level is slowly decreasing and cognition is clearing. REVIEW OF SYSTEMS: No CV, , pulmonary, eye, ENT system symptoms on review. MENTAL STATUS EXAM: Oriented to herself and situation. Speech has some latency, often responses monosyllabic. Abstraction fair, computation impaired, language function intact. Mood and affect are somewhat withdrawn. LABORATORY DATA: Reviewed. IMPRESSION: Bipolar 1 disorder, mixed with psychotic features; cognitive disorder, unspecified. Rest unchanged. PLAN: Continue current psychotropics, Valium is being tapered and she remains on Dilantin, Mysoline, Cymbalta, and Seroquel. SMILEY BETH MD DR: CHRIS/elisa JOB#: [id number] / [id number]
--- NOTE | 2017-06-22 00:12 | NUR ---
Behavior Intervention Response and Plan: BIRP Note: Behavior: Assumed Care of patient, patient located in Patient Room at shift change. Patient exhibited the following behavior Calm, Compliant, Cooperative. Brief assessment on rounds of vital signs, medication needs, lab studies, and pain. Treatment plan problems Alteration in Mood and Fall Risk. Intervention: Patient assessed and the following interventions initiated safety checks 15 Minute Checks Cognitive Assessment , Medications , Oral Hydration. Response: After interactions and interventions patient responded in the following manner, Calm , Compliant ,Withdrawn. Continue to assess behaviors and condition will continue to monitor throughout the shift as needed. Patient educated on ADL's, and hand hygiene. Plan: Continue to monitor Master Treatment Plan for patient's progress toward short term goals of Decreased Agitation, Decreased Anxiety, psychiatric arnp goals to return to previous living setting vs placement. Continue to assess patient for changes in above assessment. Monitor for medication needs, pain, and safety concerns. Hourly rounding performed to ensure safe environment.
[2017-06-22] MEDS: IPRATRPIUM/ALBUTEROL 0.5/2.5MG 3 ML NEBU. NEB SCH ×4 (05:19→22:35)
[2017-06-22 05:55] VITALS: BP 113/52
[2017-06-22] MEDS: INSULIN ASPART 300 UNITS/3 ML INSULN.PEN SQ SCH ×4 (07:30→20:45)
[2017-06-22] MEDS: DULoxetine HCL 20 MG CAPSULE.DR PO SCH (07:39)
[2017-06-22] MEDS: metFORMIN 500 MG TABLET PO SCH ×2 (07:39→18:11)
[2017-06-22] MEDS: DULoxetine HCL 30 MG CAPSULE.DR PO SCH (07:39)
[2017-06-22] MEDS: LACTULOSE 20 GM/30 ML SOLUTION. PO SCH ×4 (07:39→20:37)
[2017-06-22] MEDS: GABAPENTIN 300 MG CAPSULE. PO SCH ×4 (07:39→20:40)
[2017-06-22] MEDS: FUROSEMIDE 80 MG TABLET PO SCH (07:40)
[2017-06-22] MEDS: ASPIRIN 81 MG TAB.CHEW PO SCH (07:40)
[2017-06-22] MEDS: POTASSIUM CHLORIDE 20 MEQ TABLET.ER. PO SCH ×3 (07:40→20:40)
[2017-06-22] MEDS: LUBIPROSTONE 24 MCG CAPSULE PO SCH ×2 (07:41→18:11)
[2017-06-22] MEDS: Fluticasone/Umeclidin/Vilanter (Trelegy Ellipta 100-62.5-25) IH SCH (07:43)
[2017-06-22] MEDS: LEVOMILNACIPRAN HYDROCHLORIDE 80 MG PO SCH (07:43)
[2017-06-22] MEDS: diazePAM 5 MG TABLET PO SCH ×3 (07:47→20:44)
[2017-06-22] MEDS: PANTOPRAZOLE 40 MG TABLET. PO SCH (07:47)
[2017-06-22] MEDS: PRIMIDONE 50 MG TABLET PO SCH ×4 (09:00→20:38)
--- NOTE | 2017-06-22 11:01 | NUR ---
Behavior Intervention Response and Plan: BIRP Note: Behavior: Assumed Care of patient, patient located in Dining Room at shift change. Patient exhibited the following behavior Attention Seeking, Calm, Compliant. Brief assessment on rounds of vital signs, medication needs, lab studies, and pain. Treatment plan problems . Intervention: Patient assessed and the following interventions initiated safety checks 15 Minute Checks Cognitive Assessment , Head to toe Assessment , Medications. Response: After interactions and interventions patient responded in the following manner, Disorganized , Calm ,Compliant. Continue to assess behaviors and condition will continue to monitor throughout the shift as needed. Patient educated on ADL's, and hand hygiene. 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 Continue to assess patient for changes in above assessment. Monitor for medication needs, pain, and safety concerns. Hourly rounding performed to ensure safe environment.
[2017-06-22 16:13] VITALS: BP 122/66
--- NOTE | 2017-06-22 16:40 | NUR ---
pt up adl to meals. voicing concerns about seeing specialist for liver so she wants to be discharge. informed that SW would not be available till Saturday to work on dc plans. pt agreeable. has been up to use phone several times. Dr Ervin spoke with pt on the phone about why pt is on lactulose. Dr Ervin stated he was not familiar with pt past medical history but would speak to pt pcp Dr Porter on Sat and clarify. Dr Ervin stated it appeared she had some liver disease.
[2017-06-22] MEDS: MONTELUKAST 10 MG TABLET. PO SCH (20:39)
[2017-06-22] MEDS: PHENYTOIN SODIUM EXTENDED 100 MG CAPSULE PO SCH (20:39)
[2017-06-22] MEDS: QUEtiapine 50 MG TABLET. PO SCH (20:40)
[2017-06-22] MEDS: EZETIMIBE 10 MG TABLET PO SCH (20:40)
[2017-06-22] MEDS: diazePAM 2 MG TABLET PO SCH (20:43)
[2017-06-22] MEDS: HYDROCORTISONE 1% TOPICAL CREAM 30GM TUBE. TP SCH (20:46)
--- NOTE | 2017-06-22 22:30 | NUR ---
Behavior Intervention Response and Plan: BIRP Note: Behavior: Assumed Care of patient, patient located in Patient Room at shift change. Patient exhibited the following behavior Calm, Compliant, Cooperative. Brief assessment on rounds of vital signs, medication needs, lab studies, and pain. Treatment plan problems Alteration in Mood and Fall Risk. Intervention: Patient assessed and the following interventions initiated safety checks 15 Minute Checks Cognitive Assessment , Medications , Oral Hydration. Response: After interactions and interventions patient responded in the following manner, Calm , Compliant ,Withdrawn. Continue to assess behaviors and condition will continue to monitor throughout the shift as needed. Patient educated on ADL's, and hand hygiene. 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 Continue to assess patient for changes in above assessment. Monitor for medication needs, pain, and safety concerns. Hourly rounding performed to ensure safe environment.
--- NOTE | 2017-06-22 22:36 | PDOC ---
Exam Note: Morales Note: Please also refer to the separate dictated note~for this date of service dictated separately.~Patient seen individually. Discussed the patient with Nursing staff reviewed the chart.~Reviewed interim history and current functioning. Reviewed vital signs,~Labs/ Radiology~and current medications noted below. Continue current treatment with the changes noted in the dictated addendum note Assessment: Vital Signs: Vital Signs Date Time Temp Pulse Resp B/P (MAP) Pulse Ox O2 Delivery O2 Flow Rate FiO2 06/22/17 20:46 95 HOME CPAP 06/22/17 16:13 97.0 99 16 122/66 (84) I&O Intake and Output 06/22/17 07:00 Intake Total 960 ml Balance 960 ml Intake Oral 960 ml Labs: Laboratory Tests Test 06/22/17 07:12 06/22/17 11:56 06/22/17 16:56 06/22/17 19:18 Glucose (Fingerstick) 132 mg/dL (70-99) H 103 mg/dL (70-99) H 113 mg/dL (70-99) H 108 mg/dL (70-99) H Current Medications: Meds: Current Medications Acetaminophen (Tylenol) 650 mg PRN Q6HRS PRN PO PAIN / TEMP; Start 06/12/17 at 16:45 Multi-Ingredient Ointment (Analgesic [place]) 1 tosin PRN QID PRN TP MUSCLE PAIN; Start 06/12/17 at 16:45 Al Hydroxide/Mg Hydroxide (Mylanta Plus Xs) 15 ml PRN AFTMEALHC PRN PO DYSPEPSIA; Start 06/12/17 at 16:45 Magnesium Hydroxide (Milk Of Magnesia) 2,400 mg PRN QHS PRN PO CONSTIPATION; Start 06/12/17 at 16:45 Albuterol Sulfate (Ventolin) 2.5 mg PRN Q6HRS PRN NEB SHORTNESS OF BREATH Last administered on 06/15/17at 06:00; Start 06/12/17 at 16:45 Albuterol Sulfate (Ventolin Hfa) 1 puff PRN QID PRN IH FOR ASTHMA; Start at 16:45; Status UNV Aspirin (Children'S Aspirin) 81 mg DAILY PO Last administered on 06/22/17at 07: 40; Start 06/13/17 at 09:00 Diazepam (Valium) 2.5 mg BIDAFTMEAL PO Last administered on 06/22/17 18:10; Start 06/12/17 at 18:00 Diazepam (Valium) 7.5 mg QHS PO Last administered on 06/14/17 20:24; Start 01/19 at 21:00; Stop 06/15/17 at 19:22; Status DC Duloxetine HCl (Cymbalta) 20 mg DAILY PO Last administered on 06/22/17 07:39; Start 06/13/17 at 09:00 Duloxetine HCl (Cymbalta) 30 mg DAILY PO Last administered on 06/22/17 07:39; Start 06/13/17 at 09:00 EZETIMIBE (Zetia) 10 mg QHS PO Last administered on 06/22/17 20:40; Start 01/19 at 21:00 Furosemide (Lasix) 80 mg DAILY PO Last administered on 06/22/17 07:40; Start 06/13/17 at 09:00 Gabapentin (Neurontin) 300 mg QID PO Last administered on 06/22/17 20:40; Start 06/12/17 at 17:00 Acetaminophen/ Hydrocodone Bitart (Lortab 7.5/325) 1 tab PRN Q6HRS PRN PO PAIN Last administered on 06/21/17 13:39; Start 06/12/17 at 16:45 Albuterol/ Ipratropium (Duoneb) 3 ml RTQID NEB Last administered on 06/22/17 16:00; Start 06/12/17 at 20:00 Lubiprostone (Amitiza) 24 mcg BIDWMEALS PO Last administered on 06/22/17 18:11 ; Start 06/12/17 at 17:00 Metformin HCl (Glucophage) 500 mg BIDWMEALS PO Last administered on 06/22/17 18:11; Start 06/12/17 at 17:00 Montelukast Sodium (Singulair) 10 mg QHS PO Last administered on 06/22/17 20: 39; Start 06/12/17 at 21:00 Pantoprazole Sodium (Protonix) 40 mg DAILYAC PO Last administered on 06/22/17 07:47; Start 06/13/17 at 07:30 Phenytoin Sodium (Dilantin) 400 mg QHS PO Last administered on 06/22/17at 20:39 ; Start 06/12/17 at 21:00 Potassium Chloride (Klor-Con) 20 meq BID PO Last administered on 06/14/17at 08: 26; Start 06/12/17 at 21:00; Stop 06/14/17 at 16:26; Status DC Primidone (Mysoline) 125 mg QID PO Last administered on 06/22/17at 20:38; Start 06/12/17 at 17:00 Quetiapine Fumarate (SEROquel) 25 mg TIDAC PO ; Start 06/13/17 at 07:30; Stop at 07:30; Status DC Azelastine HCl (Astelin) 2 spray PRN BID PRN NS ALLERGIES Last administered on 06/21/17at 08:07; Start 06/12/17 at 21:00 Non-Formulary Medication (Fluticasone/ Umeclidin/ Vilanter (Trelegy Ellipta 100- 62.5-25)) 1 each DAILY IH Last administered on 06/22/17at 07:43; Start 06/13/17 at 09:00 Lactulose (Lactulose) 20 gm QID PO Last administered on 06/15/17at 20:22; Start 06/12/17 at 21:00; Stop 06/16/17 at 18:55; Status DC Non-Formulary Medication (Levomilnacipran Hydrochloride (Fetzima)) 80 mg DAILY PO Last administered on 06/22/17at 07:43; Start 06/13/17 at 09:00 Meclizine HCl (Antivert) 25 mg PRN QID PRN PO DIZZINESS; Start 06/12/17 at 17: 30 Mirtazapine (Remeron) 22.5 mg QHS PO Last administered on 06/12/17at 20:36; Start 06/12/17 at 21:00; Stop 06/13/17 at 10:38; Status DC Insulin Aspart (NovoLOG) 0-7 UNITS QIDACHS SQ Last administered on 06/18/17at 12 :01; Start 06/12/17 at 21:00 Dextrose 12.5 gm PRN Q15MIN PRN IV SEE COMMENTS; Start 06/12/17 at 17:15 Quetiapine Fumarate (SEROquel) 50 mg QHS PO Last administered on 06/22/17 20: 40; Start 06/13/17 at 21:00 Potassium Chloride (Klor-Con) 20 meq TID PO Last administered on 06/22/17 20: 40; Start 06/14/17 at 21:00 Diclofenac Sodium (Voltaren) 1 tosin PRN QHS PRN TP PAIN Last administered on 20:39; Start 06/14/17 at 21:45 Diazepam (Valium) 5 mg QHS PO Last administered on 06/22/17 20:44; Start 06/15 at 21:00 Divalproex Sodium (Depakote Er) 500 mg QHS PO Last administered on 06/17/17 19 :31; Start 06/15/17 at 21:00; Stop 06/18/17 at 19:12; Status DC Diazepam (Valium) 1.5 mg QHS PO Last administered on 06/22/17 20:43; Start at 21:00 Lactulose (Lactulose) 20 gm QID PO Last administered on 06/22/17 20:37; Start 06/18/17 at 09:00 Cetirizine HCl (ZyrTEC) 10 mg DAILY PO ; Start 06/23/17 at 09:00 Hydrocortisone (Cortaid) 1 tosin BID TP Last administered on 06/22/17 20:46; Start 06/22/17 at 21:00 Active Scripts Active Metformin Hcl 500 Mg Tablet 500 Mg PO BIDWMEALS 90 Days Albuterol Sulfate Neb Soln (Albuterol Sulfate) 2.5 Mg/3 Ml Vial.neb 2.5 Mg NEB PRN Q6HRS PRN 30 Days Reported Cymbalta (Duloxetine Hcl) 30 Mg Capsule.dr 30 Mg PO DAILY Cymbalta (Duloxetine Hcl) 20 Mg Capsule.dr 20 Mg PO DAILY Duoneb 0.5-3(2.5) Mg/3 Ml (Albuterol/Ipratropium) 3 Ml Ampul.neb 3 Ml NEB RTQID Seroquel (Quetiapine Fumarate) 25 Mg Tablet 25 Mg PO TID Amitiza (Lubiprostone) 24 Mcg Capsule 24 Mcg PO BIDWMEALS Lactulose 10 Gm/15 Ml Solution 20 Gm PO QID Meclizine Hcl 25 Mg Tablet 1 Tab PO QID PRN LAST DOSE GIVEN: DATE: TIME: NEXT DOSE DUE: DATE: TIME: Trelegy Ellipta 100-62.5-25 (Fluticasone/Umeclidin/Vilanter) 1 Each Blst.w.dev 1 Each IH DAILY Gabapentin 300 Mg Capsule 300 Mg PO QID Primidone 50 Mg Tablet 125 Mg PO QID Astepro (Azelastine Hcl) 205.5 Mcg/0.137 Ml [place].pump 2 Spr NS BID PRN LAST DOSE GIVEN: DATE: TODAY TIME: AM NEXT DOSE DUE: DATE: TODAY TIME: PM Ventolin Hfa Inhaler (Albuterol Sulfate) 18 Gm Hfa.aer.ad 1 Puff IH PRN QID PRN LAST DOSE GIVEN: NOT GIVEN THIS ADMISSION NEXT DOSE DUE: DATE: TODAY TIME: IF NEEDED Fetzima (Levomilnacipran Hydrochloride) 80 Mg Cap.sa.24h 80 Mg PO DAILY LAST DOSE GIVEN: DATE: TODAY TIME: AM NEXT DOSE DUE: DATE: TOMORROW TIME: AM Remeron (Mirtazapine) 45 Mg Tablet 22.5 Mg PO QHS LAST DOSE GIVEN: DATE: YESTER TIME: AT BEDTIME NEXT DOSE DUE: DATE: TODAY TIME: AT BEDTIME Furosemide 80 Mg Tablet 80 Mg PO DAILY LAST DOSE GIVEN: DATE: TODAY TIME: AM NEXT DOSE DUE: DATE: TOMORR TIME: AM Abilify (Aripiprazole) 5 Mg Tablet 1 Tab PO QHS LAST DOSE GIVEN: DATE: YESTER TIME: AT BEDTIME NEXT DOSE DUE: DATE: TODAY TIME: AT BEDTIME Hydrocodone-Apap 7.5-325 (Hydrocodone Bit/Acetaminophen) 1 Each Tablet 1 Tab PO PRN Q6HRS PRN LAST DOSE GIVEN: NOT GIVEN TODAY NEXT DOSE DUE: DATE: TODAY TIME: IF NEEDED TIME: IF AND WHEN NEEDED Klor-Con M20 (Potassium Chloride) 20 Meq Tab.er.prt 20 Meq PO BID LAST DOSE GIVEN: DATE: TODAY TIME: AM NEXT DOSE DUE: DATE: TODAY TIME: PM Montelukast Sodium Tablet (Montelukast Sodium) 10 Mg Tablet 10 Mg PO QHS LAST DOSE GIVEN: DATE: YESTERDAY TIME: AT BEDTIME NEXT DOSE DUE: DATE: TODAY TIME: AT BEDTIME Protonix (Pantoprazole Sodium) 40 Mg Tablet.dr 40 Mg PO DAILYAC LAST DOSE GIVEN: DATE: TODAY TIME: BEFORE BREAKFAST NEXT DOSE DUE: DATE: TOMORROW TIME: BEFORE BREAKFAST Dilantin (Phenytoin Sodium Extended) 100 Mg Capsule 400 Mg PO QHS LAST DOSE GIVEN: DATE: YESTER TIME: AT BEDTIME NEXT DOSE DUE: DATE: TODAY TIME: AT BEDTIME Aspirin 81 Mg Tab.chew 81 Mg PO DAILY LAST DOSE GIVEN: DATE: TODAY TIME: AM NEXT DOSE DUE: DATE: TOMORROW TIME: AM Zetia (Ezetimibe) 10 Mg Tablet 10 Mg PO QHS LAST DOSE GIVEN: DATE: YES TIME: AT BEDTIME NEXT DOSE DUE: DATE: TIME: AT BEDTIME Diazepam 5 Mg Tablet 7.5 Mg PO QHS LAST DOSE GIVEN: DATE: YES TIME: AT BEDTIME NEXT DOSE DUE: DATE: TIME: AT BEDTIME Diazepam 5 Mg Tablet 2.5 Mg PO BIDAFTMEAL LAST DOSE GIVEN: DATE: TODAY TIME: AM NEXT DOSE DUE: DATE: TODAY TIME: AFTERNOON I have reviewed the current psychotropics carefully including drug interactions. Risk benefit ratio favors no change other than as noted in my dictated progress note. Diagnosis: Problems: (1) Anxiety disorder (2) Impulse control disorder (3) Major depressive disorder, recurrent episode (4) Bipolar affective, mixed, severe (5) Mood disorder (6) Generalized weakness (7) Depression (8) Suicidal ideation SMILEY BETH MD Jun 22, 2017 22:36
[2017-06-23] MEDS: IPRATRPIUM/ALBUTEROL 0.5/2.5MG 3 ML NEBU. NEB SCH ×4 (05:16→20:06)
[2017-06-23 06:24] VITALS: BP 105/67
[2017-06-23] MEDS: INSULIN ASPART 300 UNITS/3 ML INSULN.PEN SQ SCH ×4 (07:30→19:52)
[2017-06-23] MEDS: DULoxetine HCL 30 MG CAPSULE.DR PO SCH (07:45)
[2017-06-23] MEDS: GABAPENTIN 300 MG CAPSULE. PO SCH ×4 (07:45→19:48)
[2017-06-23] MEDS: DULoxetine HCL 20 MG CAPSULE.DR PO SCH (07:45)
[2017-06-23] MEDS: LACTULOSE 20 GM/30 ML SOLUTION. PO SCH ×4 (07:45→19:48)
[2017-06-23] MEDS: LUBIPROSTONE 24 MCG CAPSULE PO SCH ×2 (07:46→17:00)
[2017-06-23] MEDS: metFORMIN 500 MG TABLET PO SCH ×2 (07:46→17:59)
[2017-06-23] MEDS: PANTOPRAZOLE 40 MG TABLET. PO SCH (07:46)
[2017-06-23] MEDS: PRIMIDONE 50 MG TABLET PO SCH ×4 (07:46→19:48)
[2017-06-23] MEDS: POTASSIUM CHLORIDE 20 MEQ TABLET.ER. PO SCH ×3 (07:46→19:47)
[2017-06-23] MEDS: ASPIRIN 81 MG TAB.CHEW PO SCH (07:46)
[2017-06-23] MEDS: FUROSEMIDE 80 MG TABLET PO SCH (07:46)
[2017-06-23] MEDS: Fluticasone/Umeclidin/Vilanter (Trelegy Ellipta 100-62.5-25) IH SCH (07:50)
[2017-06-23] MEDS: LEVOMILNACIPRAN HYDROCHLORIDE 80 MG PO SCH (07:51)
[2017-06-23] MEDS: CETIRIZINE HCL 10 MG TABLET PO SCH (07:53)
[2017-06-23] MEDS: HYDROCORTISONE 1% TOPICAL CREAM 30GM TUBE. TP SCH ×2 (07:53→19:49)
[2017-06-23] MEDS: diazePAM 5 MG TABLET PO SCH ×3 (07:56→19:51)
--- NOTE | 2017-06-23 09:18 | NUR ---
Behavior Intervention Response and Plan: BIRP Note: Behavior: Assumed Care of patient, patient located in Dining Room at shift change. Patient exhibited the following behavior Attention Seeking, Calm, Compliant. Brief assessment on rounds of vital signs, medication needs, lab studies, and pain. Treatment plan problems . Intervention: Patient assessed and the following interventions initiated safety checks 15 Minute Checks Cognitive Assessment , Head to toe Assessment , Medications. Response: After interactions and interventions patient responded in the following manner, Disorganized , Calm ,Compliant. Continue to assess behaviors and condition will continue to monitor throughout the shift as needed. Patient educated on ADL's, and hand hygiene. Plan: Continue to monitor Master Treatment Plan for patient's progress toward short term goals of Decreased Anxiety, Improved Mood, terminal manager goals to return to previous living setting vs placement. Continue to assess patient for changes in above assessment. Monitor for medication needs, pain, and safety concerns. Hourly rounding performed to ensure safe environment.
--- NOTE | 2017-06-23 10:18 | PN ---
DATE: 06/21/2017 This late entry 06/21/2016, covers elements not covered in my initial note 06/21/2017. Met with the patient in the evening of 06/21/2017. The patient is alert, oriented x 3. Repeat ammonia level is being done on the . She slept 5-3/4 hours. Denies suicidal ideations, still anxious, labile. REVIEW OF SYSTEMS: No CV, , pulmonary, eye, ENT system symptoms on review. MENTAL STATUS EXAM: Oriented to herself and situation. Speech has some latency, coherent. Abstraction fair, computation impaired, language function intact, attention span short. Mood and affect somewhat anxious, labile. LABORATORY DATA: Reviewed. IMPRESSION: Unchanged from initial note bipolar 1 disorder, mixed with psychotic features. Rest unchanged. PLAN: Continue current psychotropics. Adjust as indicated. Dilantin level was 12.6 on the . MAN Rivka BETH MD DR: CHRIS/elisa JOB#: [id number] / [id number]
[2017-06-23 15:43] VITALS: BP 119/72
--- NOTE | 2017-06-23 16:23 | NUR ---
Pt up adl to meals. Has voiced no SI. Asking when she will be able to go home. Stated to talk to SW to discuss anticipated DC date. here to see pt today. visit went well. Applied Cortisone to AMY najera. Pt stated it felt better.
[2017-06-23] MEDS: PHENYTOIN SODIUM EXTENDED 100 MG CAPSULE PO SCH (19:47)
[2017-06-23] MEDS: QUEtiapine 50 MG TABLET. PO SCH (19:48)
[2017-06-23] MEDS: MONTELUKAST 10 MG TABLET. PO SCH (19:49)
[2017-06-23] MEDS: EZETIMIBE 10 MG TABLET PO SCH (19:49)
[2017-06-23] MEDS: diazePAM 2 MG TABLET PO SCH (19:51)
--- NOTE | 2017-06-23 20:55 | PDOC ---
Exam Note: Morales Note: Please also refer to the separate dictated note~for this date of service dictated separately.~Patient seen individually. Discussed the patient with Nursing staff reviewed the chart.~Reviewed interim history and current functioning. Reviewed vital signs,~Labs/ Radiology~and current medications noted below. Continue current treatment with the changes noted in the dictated addendum note Assessment: Vital Signs: Vital Signs Date Time Temp Pulse Resp B/P (MAP) Pulse Ox O2 Delivery O2 Flow Rate FiO2 06/23/17 20:09 95 Room Air 06/23/17 15:43 98.3 99 18 119/72 (88) I&O Intake and Output 06/23/17 07:00 Intake Total 1080 ml Balance 1080 ml Intake Oral 1080 ml # Bowel Movements 2 Labs: Laboratory Tests Test 06/23/17 07:32 06/23/17 11:16 06/23/17 16:16 06/23/17 19:24 Glucose (Fingerstick) 96 mg/dL (70-99) 135 mg/dL (70-99) H 112 mg/dL (70-99) H 129 mg/dL (70-99) H Current Medications: Meds: Current Medications Acetaminophen (Tylenol) 650 mg PRN Q6HRS PRN PO PAIN / TEMP; Start 06/12/17 at 16:45 Multi-Ingredient Ointment (Analgesic [place]) 1 tosin PRN QID PRN TP MUSCLE PAIN; Start 06/12/17 at 16:45 Al Hydroxide/Mg Hydroxide (Mylanta Plus Xs) 15 ml PRN AFTMEALHC PRN PO DYSPEPSIA; Start 06/12/17 at 16:45 Magnesium Hydroxide (Milk Of Magnesia) 2,400 mg PRN QHS PRN PO CONSTIPATION; Start 06/12/17 at 16:45 Albuterol Sulfate (Ventolin) 2.5 mg PRN Q6HRS PRN NEB SHORTNESS OF BREATH Last administered on 06/15/17at 06:00; Start 06/12/17 at 16:45 Albuterol Sulfate (Ventolin Hfa) 1 puff PRN QID PRN IH FOR ASTHMA; Start at 16:45; Status UNV Aspirin (Children'S Aspirin) 81 mg DAILY PO Last administered on 06/23/17at 07: 46; Start 06/13/17 at 09:00 Diazepam (Valium) 2.5 mg BIDAFTMEAL PO Last administered on 06/23/17 17:59; Start 06/12/17 at 18:00 Diazepam (Valium) 7.5 mg QHS PO Last administered on 06/14/17 20:24; Start 01/19 at 21:00; Stop 06/15/17 at 19:22; Status DC Duloxetine HCl (Cymbalta) 20 mg DAILY PO Last administered on 06/23/17 07:45; Start 06/13/17 at 09:00 Duloxetine HCl (Cymbalta) 30 mg DAILY PO Last administered on 06/23/17 07:45; Start 06/13/17 at 09:00 EZETIMIBE (Zetia) 10 mg QHS PO Last administered on 06/23/17 19:49; Start 01/19 at 21:00 Furosemide (Lasix) 80 mg DAILY PO Last administered on 06/23/17 07:46; Start 06/13/17 at 09:00 Gabapentin (Neurontin) 300 mg QID PO Last administered on 06/23/17 19:48; Start 06/12/17 at 17:00 Acetaminophen/ Hydrocodone Bitart (Lortab 7.5/325) 1 tab PRN Q6HRS PRN PO PAIN Last administered on 06/21/17 13:39; Start 06/12/17 at 16:45 Albuterol/ Ipratropium (Duoneb) 3 ml RTQID NEB Last administered on 06/23/17 20:06; Start 06/12/17 at 20:00 Lubiprostone (Amitiza) 24 mcg BIDWMEALS PO Last administered on 06/23/17 17:00 ; Start 06/12/17 at 17:00 Metformin HCl (Glucophage) 500 mg BIDWMEALS PO Last administered on 06/23/17 17:59; Start 06/12/17 at 17:00 Montelukast Sodium (Singulair) 10 mg QHS PO Last administered on 06/23/17 19: 49; Start 06/12/17 at 21:00 Pantoprazole Sodium (Protonix) 40 mg DAILYAC PO Last administered on 06/23/17 07:46; Start 06/13/17 at 07:30 Phenytoin Sodium (Dilantin) 400 mg QHS PO Last administered on 06/23/17at 19:47 ; Start 06/12/17 at 21:00 Potassium Chloride (Klor-Con) 20 meq BID PO Last administered on 06/14/17at 08: 26; Start 06/12/17 at 21:00; Stop 06/14/17 at 16:26; Status DC Primidone (Mysoline) 125 mg QID PO Last administered on 06/23/17at 19:48; Start 06/12/17 at 17:00 Quetiapine Fumarate (SEROquel) 25 mg TIDAC PO ; Start 06/13/17 at 07:30; Stop at 07:30; Status DC Azelastine HCl (Astelin) 2 spray PRN BID PRN NS ALLERGIES Last administered on 06/21/17at 08:07; Start 06/12/17 at 21:00 Non-Formulary Medication (Fluticasone/ Umeclidin/ Vilanter (Trelegy Ellipta 100- 62.5-25)) 1 each DAILY IH Last administered on 06/23/17at 07:50; Start 06/13/17 at 09:00 Lactulose (Lactulose) 20 gm QID PO Last administered on 06/15/17at 20:22; Start 06/12/17 at 21:00; Stop 06/16/17 at 18:55; Status DC Non-Formulary Medication (Levomilnacipran Hydrochloride (Fetzima)) 80 mg DAILY PO Last administered on 06/23/17at 07:51; Start 06/13/17 at 09:00 Meclizine HCl (Antivert) 25 mg PRN QID PRN PO DIZZINESS; Start 06/12/17 at 17: 30 Mirtazapine (Remeron) 22.5 mg QHS PO Last administered on 06/12/17at 20:36; Start 06/12/17 at 21:00; Stop 06/13/17 at 10:38; Status DC Insulin Aspart (NovoLOG) 0-7 UNITS QIDACHS SQ Last administered on 06/18/17at 12 :01; Start 06/12/17 at 21:00 Dextrose 12.5 gm PRN Q15MIN PRN IV SEE COMMENTS; Start 06/12/17 at 17:15 Quetiapine Fumarate (SEROquel) 50 mg QHS PO Last administered on 06/23/17 19: 48; Start 06/13/17 at 21:00 Potassium Chloride (Klor-Con) 20 meq TID PO Last administered on 06/23/17 19: 47; Start 06/14/17 at 21:00 Diclofenac Sodium (Voltaren) 1 tosin PRN QHS PRN TP PAIN Last administered on 20:39; Start 06/14/17 at 21:45 Diazepam (Valium) 5 mg QHS PO Last administered on 06/23/17 19:51; Start 06/15 at 21:00 Divalproex Sodium (Depakote Er) 500 mg QHS PO Last administered on 06/17/17 19 :31; Start 06/15/17 at 21:00; Stop 06/18/17 at 19:12; Status DC Diazepam (Valium) 1.5 mg QHS PO Last administered on 06/22/17 20:43; Start at 21:00; Stop 06/23/17 at 16:21; Status DC Lactulose (Lactulose) 20 gm QID PO Last administered on 06/23/17 19:48; Start 06/18/17 at 09:00 Cetirizine HCl (ZyrTEC) 10 mg DAILY PO Last administered on 06/23/17 07:53; Start 06/23/17 at 09:00 Hydrocortisone (Cortaid) 1 tosin BID TP Last administered on 06/23/17 19:49; Start 06/22/17 at 21:00 Diazepam (Valium) 0.5 mg QHS PO Last administered on 06/23/17 19:51; Start at 21:00 Active Scripts Active Metformin Hcl 500 Mg Tablet 500 Mg PO BIDWMEALS 90 Days Albuterol Sulfate Neb Soln (Albuterol Sulfate) 2.5 Mg/3 Ml Vial.neb 2.5 Mg NEB PRN Q6HRS PRN 30 Days Reported Cymbalta (Duloxetine Hcl) 30 Mg Capsule.dr 30 Mg PO DAILY Cymbalta (Duloxetine Hcl) 20 Mg Capsule.dr 20 Mg PO DAILY Duoneb 0.5-3(2.5) Mg/3 Ml (Albuterol/Ipratropium) 3 Ml Ampul.neb 3 Ml NEB RTQID Seroquel (Quetiapine Fumarate) 25 Mg Tablet 25 Mg PO TID Amitiza (Lubiprostone) 24 Mcg Capsule 24 Mcg PO BIDWMEALS Lactulose 10 Gm/15 Ml Solution 20 Gm PO QID Meclizine Hcl 25 Mg Tablet 1 Tab PO QID PRN LAST DOSE GIVEN: DATE: TIME: NEXT DOSE DUE: DATE: TIME: Trelegy Ellipta 100-62.5-25 (Fluticasone/Umeclidin/Vilanter) 1 Each Blst.w.dev 1 Each IH DAILY Gabapentin 300 Mg Capsule 300 Mg PO QID Primidone 50 Mg Tablet 125 Mg PO QID Astepro (Azelastine Hcl) 205.5 Mcg/0.137 Ml [place].pump 2 Spr NS BID PRN LAST DOSE GIVEN: DATE: TODAY TIME: AM NEXT DOSE DUE: DATE: TODAY TIME: PM Ventolin Hfa Inhaler (Albuterol Sulfate) 18 Gm Hfa.aer.ad 1 Puff IH PRN QID PRN LAST DOSE GIVEN: NOT GIVEN THIS ADMISSION NEXT DOSE DUE: DATE: TODAY TIME: IF NEEDED Fetzima (Levomilnacipran Hydrochloride) 80 Mg Cap.sa.24h 80 Mg PO DAILY LAST DOSE GIVEN: DATE: TODAY TIME: AM NEXT DOSE DUE: DATE: TOMORROW TIME: AM Remeron (Mirtazapine) 45 Mg Tablet 22.5 Mg PO QHS LAST DOSE GIVEN: DATE: YESTERDAY TIME: AT BEDTIME NEXT DOSE DUE: DATE: TODAY TIME: AT BEDTIME Furosemide 80 Mg Tablet 80 Mg PO DAILY LAST DOSE GIVEN: DATE: TODAY TIME: AM NEXT DOSE DUE: DATE: TOMORROW TIME: AM Abilify (Aripiprazole) 5 Mg Tablet 1 Tab PO QHS LAST DOSE GIVEN: DATE: YESTERDAY TIME: AT BEDTIME NEXT DOSE DUE: DATE: TODAY TIME: AT BEDTIME Hydrocodone-Apap 7.5-325 (Hydrocodone Bit/Acetaminophen) 1 Each Tablet 1 Tab PO PRN Q6HRS PRN LAST DOSE GIVEN: NOT GIVEN TODAY NEXT DOSE DUE: DATE: TODAY TIME: IF NEEDED TIME: IF AND WHEN NEEDED Klor-Con M20 (Potassium Chloride) 20 Meq Tab.er.prt 20 Meq PO BID LAST DOSE GIVEN: DATE: TODAY TIME: AM NEXT DOSE DUE: DATE: TODAY TIME: PM Montelukast Sodium Tablet (Montelukast Sodium) 10 Mg Tablet 10 Mg PO QHS LAST DOSE GIVEN: DATE: YESTER TIME: AT BEDTIME NEXT DOSE DUE: DATE: TODAY TIME: AT BEDTIME Protonix (Pantoprazole Sodium) 40 Mg Tablet.dr 40 Mg PO DAILYAC LAST DOSE GIVEN: DATE: TODAY TIME: BEFORE BREAKFAST NEXT DOSE DUE: DATE: TOMORROW TIME: BEFORE BREAKFAST Dilantin (Phenytoin Sodium Extended) 100 Mg Capsule 400 Mg PO QHS LAST DOSE GIVEN: DATE: YESTER TIME: AT BEDTIME NEXT DOSE DUE: DATE: TODAY TIME: AT BEDTIME Aspirin 81 Mg Tab.chew 81 Mg PO DAILY LAST DOSE GIVEN: DATE: TIME: AM NEXT DOSE DUE: DATE: TOMORR TIME: AM Zetia (Ezetimibe) 10 Mg Tablet 10 Mg PO QHS LAST DOSE GIVEN: DATE: YES TIME: AT BEDTIME NEXT DOSE DUE: DATE: TIME: AT BEDTIME Diazepam 5 Mg Tablet 7.5 Mg PO QHS LAST DOSE GIVEN: DATE: YESTER TIME: AT BEDTIME NEXT DOSE DUE: DATE: TIME: AT BEDTIME Diazepam 5 Mg Tablet 2.5 Mg PO BIDAFTMEAL LAST DOSE GIVEN: DATE: TIME: AM NEXT DOSE DUE: DATE: TODAY TIME: AFTERNOON I have reviewed the current psychotropics carefully including drug interactions. Risk benefit ratio favors no change other than as noted in my dictated progress note. Diagnosis: Problems: (1) Anxiety disorder (2) Anxiety disorder (3) Impulse control disorder (4) Major depressive disorder, recurrent episode (5) Major depressive disorder, recurrent episode (6) Bipolar affective, mixed, severe (7) Mood disorder (8) Depression (9) Suicidal ideation SMILEY BETH MD Jun 23, 2017 20:55
--- NOTE | 2017-06-23 22:28 | NUR ---
Behavior Intervention Response and Plan: BIRP Note: Behavior: Assumed Care of patient, patient located in Day Room at shift change. Patient exhibited the following behavior Calm, Able to Focus on Task, Compliant. Brief assessment on rounds of vital signs, medication needs, lab studies, and pain. Treatment plan problems 1-2. Intervention: Patient assessed and the following interventions initiated safety checks 15 Minute Checks Cognitive Assessment , Head to toe Assessment , Medications. Response: After interactions and interventions patient responded in the following manner, Calm , Disorganized ,Cooperative. Continue to assess behaviors and condition will continue to monitor throughout the shift as needed. Patient educated on ADL's, and hand hygiene. Plan: Continue to monitor Master Treatment Plan for patient's progress toward short term goals of Decreased Anxiety, No harm To self/ others, care home goals to return to previous living setting vs placement. Continue to assess patient for changes in above assessment. Monitor for medication needs, pain, and safety concerns. Hourly rounding performed to ensure safe environment.
--- NOTE | 2017-06-24 00:10 | NUR ---
Behavior Intervention Response and Plan: BIRP Note: Behavior: Assumed Care of patient, patient located in Day Room at shift change. Patient exhibited the following behavior Appropriate, Compliant, Cooperative. Brief assessment on rounds of vital signs, medication needs, lab studies, and pain. Treatment plan problems . Intervention: Patient assessed and the following interventions initiated safety checks 15 Minute Checks Cognitive Assessment , Head to toe Assessment , Medications. Response: After interactions and interventions patient responded in the following manner, Calm , Interactive ,Compliant. Continue to assess behaviors and condition will continue to monitor throughout the shift as needed. Patient educated on ADL's, and hand hygiene. Plan: Continue to monitor Master Treatment Plan for patient's progress toward short term goals of Decreased Anxiety, No harm To self/ others, meterman goals to return to previous living setting vs placement. Continue to assess patient for changes in above assessment. Monitor for medication needs, pain, and safety concerns. Hourly rounding performed to ensure safe environment.
--- NOTE | 2017-06-24 00:33 | PN ---
DATE: 06/15/2017 SUBJECTIVE: The patient denies recurrent seizure or any new medical or neurological complaints; however, she continues to have intermittent tremor of the upper extremities and marked generalized weakness. The patient appears to be very anxious and wanting to go home. OBJECTIVE: GENERAL: Obese white female, not in acute distress. VITAL SIGNS: Blood pressure 120/74, respiratory rate 18, pulse is 100, temperature 98.5, and oxygen saturation 94% on room air. HEENT: Normocephalic, atraumatic, otherwise unremarkable. NECK: Supple. Negative for carotid bruit, lymphadenopathy or thyromegaly. LUNGS: Diminished breath sounds without wheezing or rales. CARDIOVASCULAR: Regular rhythm, normal S1, S2. There is no S3, S4, or murmur. ABDOMEN: Soft. Bowel sounds positive. EXTREMITIES: Negative for cyanosis, clubbing or pitting edema. NEUROLOGICAL EXAM: Mental Status: The patient is more alert and oriented. Speech is more fluent. There is no language dysfunction. The patient recalls 2/3 immediately and after 1 and 3 minutes. Judgment, abstract and thinkings are fair. The patient denies hallucination or delusion. Cranial nerves are intact. Motor Examination: No focal muscle bulk was seen. The tone is normal. The strength is 4/5 throughout. The patient continued to have mild postural and kinetic tremors of the upper extremities. Sensory examination revealed diminished pinprick and light touch senses in patchy distributions in distal lower extremities. Deep tendon reflexes were symmetric and hypoactive with absent Achilles responses. Gait: The patient uses a walker for ambulation. IMPRESSION: 1. Seizure disorder - stable. 2. Tremor of the upper extremities, likely due to essential tremor. 3. Major depression and anxiety disorder. 4. Multiple medical problems to include obesity, chronic obstructive pulmonary disease, obstructive sleep apnea, chronic low back pain, peripheral neuropathy in the lower extremities, and recent hepatic encephalopathy. RECOMMENDATIONS: Continue with current medical and psychiatric care. We will recheck ammonia level after a few days. M Alvaro CASTILLO MD DR: TOLU/elisa JOB#: [id number] / [id number]
--- NOTE | 2017-06-24 01:21 | PN ---
DATE: 06/23/2017 SUBJECTIVE: The patient denies any new medical or neurological complaints. She is alert and oriented and she wants to go home. She stated her vertigo has gone and she is walking better and she feels better. OBJECTIVE: GENERAL: Obese white female, not in acute distress. VITAL SIGNS: Blood pressure 105/67, respiratory rate 18, pulse is 84 regular, temperature 97.6, oxygen saturation 92% on BiPAP. HEENT: Normocephalic, atraumatic, otherwise unremarkable. NECK: Supple. Negative for carotid bruit, lymphadenopathy, JVD, or thyromegaly. LUNGS: Diminished breath sounds throughout. No wheezing or rales. CARDIOVASCULAR: Regular rhythm, normal S1, S2. ABDOMEN: Soft. Bowel sounds positive. EXTREMITIES: Negative for cyanosis, clubbing, or pitting edema. NEUROLOGICAL EXAM: Mental Status: The patient is alert and oriented to place and time and person. The speech is more fluent. There is no language dysfunction. Memory, patient recalls 2/3 immediately and after 1 and 3 minutes. Judgment abstract and thinking are fair. The patient denies hallucination or delusion. Cranial nerves are intact. Motor Examination: No focal muscle bulk was seen. The tone is normal. The strength is 4/5 throughout. The patient has a very mild postural tremor of the upper extremities. Sensory examination diminished pinprick and light touch senses in patchy distributions and distal lower extremities. Deep tendon reflexes were symmetric and hypoactive with absent Achilles responses. Gait: The patient uses a walker with ambulation. IMPRESSION: 1. Seizure disorder -- stable. 2. Essential tremor of the upper extremities--improved. 3. Major depression and anxiety. 4. Multiple medical problems include chronic obstructive pulmonary disease, obstructive sleep apnea, chronic low back pain, peripheral neuropathy in the lower extremities, diabetes mellitus. RECOMMENDATIONS: Continue with current medical and psychiatric care. The patient's neuro examination today revealed improved mental status and tremor. M Alvaro CASTILLO MD DR: TOLU/elisa JOB#: [id number] / [id number]
--- NOTE | 2017-06-24 01:25 | PN ---
DATE: 06/20/2017 SUBJECTIVE: The patient denies any new neurological complaints. She continues to have intermittent confusion, but tremor has improved over the last few days. Depakote was discontinued by Dr. Barron as ammonia level is up to 87 on 06/19/2017. The patient denies headaches, vertigo, or visual disturbances. OBJECTIVE: GENERAL: Obese female. She notes in acute distress. VITAL SIGNS: Blood pressure 136/60, respiratory rate 20, pulse is 100, temperature 97.9, oxygen saturation is 95%. HEENT: Normocephalic, atraumatic, otherwise unremarkable. NECK: Supple. Negative for carotid bruit, lymphadenopathy or thyromegaly. LUNGS: Diminished breath sounds throughout. No wheezing or rales. CARDIOVASCULAR: Regular rhythm, normal S1, S2. There is no S3, S4, or murmur. ABDOMEN: Soft. Bowel sounds positive. EXTREMITIES: Negative for cyanosis, clubbing, edema, or pitting edema. NEUROLOGICAL EXAM: Mental Status: The patient is more alert and oriented. Speech is more fluent. There is no language dysfunction. Memory, judgment, abstract thinking are fair. The patient denies hallucination or delusion. Cranial nerves are intact. Motor Examination: No focal muscle bulk was seen. The tone is normal. The strength is 4/5 throughout. The patient has mild postural and kinetic tremors of the upper extremities. Deep tendon reflexes were symmetric and active with absent Achilles responses. Gait: The patient uses a walker for ambulation. LABORATORY DATA: CBC revealed white blood cells of 6600, hemoglobin 12.3, hematocrit 35.8, platelet count 211,000. Chemistry revealed sodium 142, potassium 3.9, chloride with 101, CO2 is 31, BUN 14, creatinine 0.9, glucose 110, A1c is 6, lactic acid is high at 2.8, magnesium is 1.8, and calcium 8.8. Ammonia level is 87. Cardiac enzymes and troponin levels are normal. CRP is elevated at 31.9. Lipid profile revealed a slightly elevated LDL at 103 with high HDL at 77. Vitamin B12 is the lower normal at 333 and a low vitamin D at 9.1, with high TSH at 3.1 and normal T4 at 4.6. IMPRESSION: 1. Seizure disorder - stable, on medications. 2. Recent hepatic encephalopathy with elevated ammonia at 87. 3. Multiple psychiatric problems include major depressions and anxiety disorder. 4. Multiple medical problems include chronic obstructive pulmonary disease, obstructive sleep apnea, obesity, chronic lower back pain, peripheral neuropathy in the lower extremities, and diabetes mellitus. RECOMMENDATIONS: Continue with the current medical and psychiatric care initiated by Dr. Barron. The patient showed good neurological process. M Alvaro CASTILLO MD DR: TOLU/elisa JOB#: [id number] / [id number]
--- NOTE | 2017-06-24 01:59 | PN ---
DATE: 06/17/2017 NEUROLOGY PROGRESS NOTE SUBJECTIVE: The patient denies any new neurological complaints. She has not had seizure during this hospitalization. However, the patient has intermittent confusion reported by the nursing staff and increased tremor of the upper extremities. The patient has been started on Depakote by Dr. Barron for underlying major depressions at 500 mg at bedtime. OBJECTIVE: GENERAL: Obese white female, not in acute distress. VITAL SIGNS: Blood pressure 130/85, respiratory rate 20, pulse is 98, oxygen saturation 95% and temperature 97.2. HEENT: Normocephalic, atraumatic, otherwise unremarkable. NECK: Supple. Negative for carotid bruit, lymphadenopathy or thyromegaly. LUNGS: With diminished breath sound. No wheezing or rales. CARDIOVASCULAR: Regular rate and rhythm. Normal S1, S2. There is no S3, S4, or murmur. ABDOMEN: Soft. Bowel sounds positive. EXTREMITIES: Negative for cyanosis, clubbing or pitting edema. NEUROLOGIC: The patient is alert with mild slurred speech and continued to be intermittently confused and disoriented to time. Memory, judgment, abstract, and thinkings are fair. The patient denies hallucination or delusion. Cranial nerves are intact. Motor Examination: No focal muscle bulk was seen. The tone was normal. The strength was 4/5 throughout. The patient continues to have worsening of the tremor of the upper extremities. The tremor was at resting, postural and kinetic as well. Sensory examination revealed diminished pinprick and light touch senses in patchy distributions in distal lower extremities. Deep tendon reflexes were symmetric and hypoactive without pathologic responses. Gait: The patient uses a walker for ambulation. IMPRESSION: 1. Chronic history of seizure disorder of unknown etiology - stable. 2. Long history of essential tremor, presented with postural and kinetic tremors of both upper extremities, on primidone at 125 mg q.i.d. 3. Increased confusion and tremor of the upper extremities. 4. Multiple medical problems, chronic obstructive pulmonary disease, obstructive sleep apnea, obesity, severe depression, anxiety disorders, chronic lower back pain and peripheral neuropathy in the lower extremities and diabetes mellitus. RECOMMENDATIONS: We will check Dilantin and Depakote level. Regarding Depakote, it might increase ammonia level as well. Otherwise, we will continue with current medications for seizure, tremor and peripheral neuropathy in the lower extremities. We will check CBC and complete metabolic panel. M Alvaro CASTILLO MD DR: Brianna JOB#: [id number] / [id number]
[2017-06-24] MEDS: IPRATRPIUM/ALBUTEROL 0.5/2.5MG 3 ML NEBU. NEB SCH ×4 (05:53→19:44)
--- NOTE | 2017-06-24 06:27 | CONS ---
DATE OF CONSULTATION: 06/13/2017 REFERRING PHYSICIAN: Dr. Barron REASON FOR CONSULTATION: Seizure disorder and confusion. HISTORY OF PRESENT ILLNESS: This is a 66-year-old female who was transferred from jail unit after she presented with a progressive and severe depressions and anxiety disorder. Neuro consult was requested because the patient has had longstanding history of seizure disorder and recently discharged from a jail unit after she admitted to the hospital with a diagnosis of metabolic encephalopathy -- hepatic encephalopathy and markedly elevated ammonia level. The patient has had a history of seizure, which has been controlled by phenytoin. The patient also complains of increasing tremor of the upper extremities during this hospitalization. Dr. Barron, a psychiatrist, has been following the patient since admission and he diagnosed her as having a major depressions and anxiety disorders. The patient has not had a seizure for a while; however, she has been complaining of worsening of her essential tremor. The last ammonia level was on 40 on 06/10/2017. The normal level in anomia ranges from 11-34. Currently, she complains of chronic localized lower back pain and intermittent numbness and paresthesia of the legs. She also complains of weakness of the lower extremities and unsteady stance and gait disturbances. PAST MEDICAL HISTORY: Quite significant for seizure disorder as described above, advanced stage of COPD, fibromyalgia, obstructive sleep apnea, peripheral neuropathy in the lower extremities, depression, anxiety, and elevated ammonia level, likely due to a recent hepatic encephalopathy, bipolar disorder, suicidal ideations, urinary tract infections. SOCIAL HISTORY: The patient is . She denies smoking, alcohol drinking, or illicit drug use. FAMILY HISTORY: Positive ischemic heart disease. CURRENT MEDICATIONS: Include phenytoin 400 mg at bedtime, cetirizine, hydrocortisone, lactulose, diazepam, diclofenac, potassium, Seroquel, furosemide, Cymbalta, aspirin, Protonix, insulin NovoLog, Zetia, meclizine, primidone, Amitiza, gabapentin, Lortab, and Tylenol. ALLERGIES: THE PATIENT IS ALLERGIC TO SULFONAMIDE ANTIBIOTICS, ERYTHROMYCIN BASE, ENOXAPARIN. REVIEW OF SYSTEMS: A 10-point review of system was performed and is as mentioned in the history of present illness. PHYSICAL EXAMINATION: GENERAL: Obese white female, in mild respiratory distress. She weighs 219 pounds. VITAL SIGNS: Blood pressure 135/77, respiratory rate 18, pulse is 94, and oxygen saturation 91% on room air. HEENT: Normocephalic, atraumatic, otherwise unremarkable. NECK: Supple, negative for carotid bruit, lymphadenopathy or thyromegaly. LUNGS: With diminished breath sounds bilaterally. No wheezing or rhonchi. ABDOMEN: Soft. Bowel sounds positive. No tenderness. EXTREMITIES: Negative for cyanosis, clubbing, pitting edema. NEUROLOGICAL: Mental Status: The patient is alert and oriented to time and place. Speech is fluent. There is no language dysfunction. The patient recalls 2/3 immediately and after 1 and 3 minutes. Judgment and abstract thinkings are fair. The patient denies hallucination or delusion. Cranial nerves are grossly intact. Motor examination revealed no focal muscle bulk was seen. The strength was 4/5 throughout. The patient has mild resting and postural tremors of both upper extremities. Sensory examination revealed diminished pinprick and light touch senses in patchy distributions. Deep tendon reflexes were symmetric and hypoactive with absent Achilles responses. Gait: The patient uses a walker for ambulation. LABORATORY DATA: CBC revealed white blood cells of 5.8 thousand, hemoglobin 13.3, hematocrit 38.3, platelet count 200,000. Chemistry revealed a sodium of 141, potassium 3.3, chloride 100, CO2 30, BUN 11, creatinine 0.9, glucose 161. Calcium is 9. Magnesium is 1.8. Liver enzymes are normal. Urinalysis is negative for urinary tract infection. IMPRESSION: 1. History of seizure disorder -- stable on phenytoin. 2. Recent hepatic encephalopathy -- improved. 3. Multiple medical problems include obstructive sleep apnea, chronic low back pain, advanced chronic obstructive pulmonary disease, major depressions, anxiety, peripheral neuropathy in the lower extremities, gait disturbances with intermittent vertigo. RECOMMENDATIONS: 1. Continue with current management and home medications. 2. Check ammonia level in a few days. 3. Physical therapy as tolerated. 4. Continue with current medical and psychiatric care. The patient should continue with CPAP during sleep. M Alvaro CASTILLO MD DR: TOLU/elisa JOB#: [id number] / [id number]
[2017-06-24 06:36] VITALS: BP 114/68
[2017-06-24 07:03] LABS: BASO % 1 % (0-3); EOS # 0.4 x10^3/uL (0.0-0.7); EOS % 7 % (0-3); HEMATOCRIT 32.1 % (36.0-47.0); HEMOGLOBIN 11.2 g/dL (12.0-15.5); LYMPH # 1.9 x10^3/uL (1.0-4.8); LYMPH % 35 % (24-48); MEAN CORPUSCULAR HEMOGLOBIN 32 pg (25-35); MEAN CORPUSCULAR HGB CONC 35 g/dL (31-37); MEAN CORPUSCULAR VOLUME 91 fL (79-100); MONO # 0.5 x10^3/uL (0.0-1.1); MONO % 9 % (0-9); NEUT # 2.6 x10^3uL (1.8-7.7); NEUT % 49 % (31-73); PLATELET COUNT 193 x10^3/uL (140-400); RED BLOOD COUNT 3.51 x10^6/uL (3.50-5.40); RED CELL DISTRIBUTION WIDTH 16.1 % (11.5-14.5); WHITE BLOOD COUNT 5.4 x10^3/uL (4.0-11.0)
[2017-06-24 07:23] LABS: ALBUMIN 2.9 g/dL (3.4-5.0); ALBUMIN/GLOBULIN RATIO 0.7 (1.0-1.7); CALCIUM 8.3 mg/dL (8.5-10.1); CREATININE 0.8 mg/dL (0.6-1.0); GFR 71.8; POTASSIUM 3.9 mmol/L (3.5-5.1); TOTAL BILIRUBIN 0.2 mg/dL (0.2-1.0); TOTAL PROTEIN 7.3 g/dL (6.4-8.2)
[2017-06-24] MEDS: INSULIN ASPART 300 UNITS/3 ML INSULN.PEN SQ SCH ×4 (07:30→20:03)
[2017-06-24] MEDS: DULoxetine HCL 20 MG CAPSULE.DR PO SCH (08:00)
[2017-06-24] MEDS: POTASSIUM CHLORIDE 20 MEQ TABLET.ER. PO SCH ×3 (08:01→19:52)
[2017-06-24] MEDS: PRIMIDONE 50 MG TABLET PO SCH ×4 (08:01→19:51)
[2017-06-24] MEDS: DULoxetine HCL 30 MG CAPSULE.DR PO SCH (08:01)
[2017-06-24] MEDS: metFORMIN 500 MG TABLET PO SCH ×2 (08:01→17:26)
[2017-06-24] MEDS: CETIRIZINE HCL 10 MG TABLET PO SCH (08:02)
[2017-06-24] MEDS: GABAPENTIN 300 MG CAPSULE. PO SCH ×4 (08:03→19:51)
[2017-06-24] MEDS: FUROSEMIDE 80 MG TABLET PO SCH (08:03)
[2017-06-24] MEDS: LACTULOSE 20 GM/30 ML SOLUTION. PO SCH ×4 (08:03→19:49)
[2017-06-24] MEDS: ASPIRIN 81 MG TAB.CHEW PO SCH (08:03)
[2017-06-24] MEDS: PANTOPRAZOLE 40 MG TABLET. PO SCH (08:04)
[2017-06-24] MEDS: HYDROCORTISONE 1% TOPICAL CREAM 30GM TUBE. TP SCH ×2 (08:05→20:04)
[2017-06-24] MEDS: LUBIPROSTONE 24 MCG CAPSULE PO SCH ×2 (08:05→17:27)
[2017-06-24] MEDS: Fluticasone/Umeclidin/Vilanter (Trelegy Ellipta 100-62.5-25) IH SCH (08:06)
[2017-06-24] MEDS: LEVOMILNACIPRAN HYDROCHLORIDE 80 MG PO SCH (08:09)
[2017-06-24] MEDS: diazePAM 5 MG TABLET PO SCH ×3 (08:20→19:56)
--- NOTE | 2017-06-24 08:35 | NUR ---
Pt knocked on SW's door after breakfast to inquire about dc plans. Pt states she would like to discuss discharging home and following up w/her outside doctors as she would feel more comfortable at home. SW told pt SW would need to check in w/Dr. Barron and nursing to be updated on weekend progress and medication changes and would f/u w/pt after lunch today. Pt was agreeable.
--- NOTE | 2017-06-24 10:30 | NUR ---
COCO received a call from pt's dtr, Herminia, to discuss updates on pt's progress and possible dc plans for later in the week. Herminia was concerned the family had not received any communication regarding pt's medical status regarding the ammonia levels and pt had requested her PCP, Dr. Spangler, to monitor pt while on [facility]. COCO stated Dr. Ervin had contacted pt's over the weekend to further discuss medical updates and Dr. Spangler could be in contact w/Dr. Ervin on a daily basis, if desired, and pt would have a f/u appt. scheduled once dc. Herminia was surprised to hear pt's had been contacted as he had not shared this information yet w/the family. Herminia then asked for SW to continue w/any other updates that he maybe had not shared w/the family. COCO provided general oversight to help Herminia to further manage the family's understanding of pt's current admit. Herminia was very gracious of COCO's assistance and will continue to guide pt's in understanding procedures. Herminia also requested special visiting hours for Saturday, which were granted and written on nursing board.
--- NOTE | 2017-06-24 14:49 | NUR ---
Behavior Intervention Response and Plan: BIRP Note: Behavior: Assumed Care of patient, patient located in Dining Room at shift change. Patient exhibited the following behavior Interactive, Appropriate, Compliant. Brief assessment on rounds of vital signs, medication needs, lab studies, and pain. Treatment plan problems . Intervention: Patient assessed and the following interventions initiated safety checks 15 Minute Checks Cognitive Assessment , Head to toe Assessment , Medications. Response: After interactions and interventions patient responded in the following manner, Calm , Cooperative ,Drowsy. Continue to assess behaviors and condition will continue to monitor throughout the shift as needed. Patient educated on ADL's, and hand hygiene. Plan: Continue to monitor Master Treatment Plan for patient's progress toward short term goals of Improved Mood, No harm To self/ others, group home goals to return to previous living setting vs placement. Continue to assess patient for changes in above assessment. Monitor for medication needs, pain, and safety concerns. Hourly rounding performed to ensure safe environment.
[2017-06-24 16:19] VITALS: BP 124/66
--- NOTE | 2017-06-24 17:00 | NUR ---
SW met w/pt and pt's at the end of visiting hours to further discuss pt's concerns w/dc later in the week. SW explained that pt's medications are being tapered and require close monitoring for withdrawal symptoms. SW provided examples of difficulties if pt were to dc home and had withdrawal symptoms and pt was unable to be seen by her PCP or Psychiatrist for additional assistance for medication management, pt would then have to readmit to ED. SW also stated pt has presented anxious and has perseverated on dc plans all day, indicating to this SW she is not ready for dc yet as her anxiety medication is the medication being tapered. Pt was somewhat understanding, and was able to articulate to SW taking things "one day at a time". SW encouraged pt to further discuss things w/Dr. Barron this evening.
[2017-06-24] MEDS: HYDROcodone/APAP 7.5/325MG 1 TAB TABLET PO PRN (17:47)
[2017-06-24] MEDS: PHENYTOIN SODIUM EXTENDED 100 MG CAPSULE PO SCH (19:49)
[2017-06-24] MEDS: MONTELUKAST 10 MG TABLET. PO SCH (19:49)
[2017-06-24] MEDS: QUEtiapine 50 MG TABLET. PO SCH (19:51)
[2017-06-24] MEDS: EZETIMIBE 10 MG TABLET PO SCH (19:53)
[2017-06-24] MEDS: diazePAM 2 MG TABLET PO SCH (19:56)
--- NOTE | 2017-06-24 20:50 | PDOC ---
Exam Note: Morales Note: Please also refer to the separate dictated note~for this date of service dictated separately.~Patient seen individually. Discussed the patient with Nursing staff reviewed the chart.~Reviewed interim history and current functioning. Reviewed vital signs,~Labs/ Radiology~and current medications noted below. Continue current treatment with the changes noted in the dictated addendum note Assessment: Vital Signs: Vital Signs Date Time Temp Pulse Resp B/P (MAP) Pulse Ox O2 Delivery O2 Flow Rate FiO2 06/24/17 19:44 95 Room Air 06/24/17 16:19 97.7 98 20 124/66 (85) 06/24/17 06:36 20.0 I&O Intake and Output 06/24/17 07:00 Intake Total 920 ml Balance 920 ml Intake Oral 920 ml # Voids 1 Labs: Laboratory Tests Test 06/24/17 06:45 06/24/17 07:11 06/24/17 11:26 06/24/17 16:21 White Blood Count 5.4 x10^3/uL (4.0-11.0) Red Blood Count 3.51 x10^6/uL (3.50-5.40) Hemoglobin 11.2 g/dL (12.0-15.5) L Hematocrit 32.1 % (36.0-47.0) L Mean Corpuscular Volume 91 fL (79-100) Mean Corpuscular Hemoglobin 32 pg (25-35) Mean Corpuscular Hemoglobin Concent 35 g/dL (31-37) Red Cell Distribution Width 16.1 % (11.5-14.5) H Platelet Count 193 x10^3/uL (140-400) Neutrophils (%) (Auto) 49 % (31-73) Lymphocytes (%) (Auto) 35 % (24-48) Monocytes (%) (Auto) 9 % (0-9) Eosinophils (%) (Auto) 7 % (0-3) H Basophils (%) (Auto) 1 % (0-3) Neutrophils # (Auto) 2.6 x10^3uL (1.8-7.7) Lymphocytes # (Auto) 1.9 x10^3/uL (1.0-4.8) Monocytes # (Auto) 0.5 x10^3/uL (0.0-1.1) Eosinophils # (Auto) 0.4 x10^3/uL (0.0-0.7) Basophils # (Auto) 0.0 x10^3/uL (0.0-0.2) Sodium Level 137 mmol/L (136-145) Potassium Level 3.9 mmol/L (3.5-5.1) Chloride Level 101 mmol/L (98-107) Carbon Dioxide Level 28 mmol/L (21-32) Anion Gap 8 (6-14) Blood Urea Nitrogen 13 mg/dL (7-20) Creatinine 0.8 mg/dL (0.6-1.0) Estimated GFR (Cockcroft-Gault) 71.8 BUN/Creatinine Ratio 16 (6-20) Glucose Level 128 mg/dL (70-99) H Calcium Level 8.3 mg/dL (8.5-10.1) L Total Bilirubin 0.2 mg/dL (0.2-1.0) Aspartate Amino Transferase (AST) 21 U/L (15-37) Alanine Aminotransferase (ALT) 24 U/L (14-59) Alkaline Phosphatase 187 U/L (46-116) H Ammonia 82 mcmol/L (11-34) H Total Protein 7.3 g/dL (6.4-8.2) Albumin 2.9 g/dL (3.4-5.0) L Albumin/Globulin Ratio 0.7 (1.0-1.7) L Glucose (Fingerstick) 121 mg/dL (70-99) H 122 mg/dL (70-99) H 129 mg/dL (70-99) H Test 06/24/17 19:30 Glucose (Fingerstick) 117 mg/dL (70-99) H Current Medications: Meds: Current Medications Acetaminophen (Tylenol) 650 mg PRN Q6HRS PRN PO PAIN / TEMP; Start 06/12/17 at 16:45 Multi-Ingredient Ointment (Analgesic Comptche) 1 tosin PRN QID PRN TP MUSCLE PAIN; Start 06/12/17 at 16:45 Al Hydroxide/Mg Hydroxide (Mylanta Plus Xs) 15 ml PRN AFTMEALHC PRN PO DYSPEPSIA; Start 06/12/17 at 16:45 Magnesium Hydroxide (Milk Of Magnesia) 2,400 mg PRN QHS PRN PO CONSTIPATION; Start 06/12/17 at 16:45 Albuterol Sulfate (Ventolin) 2.5 mg PRN Q6HRS PRN NEB SHORTNESS OF BREATH Last administered on 06/15/17 06:00; Start 06/12/17 at 16:45 Albuterol Sulfate (Ventolin Hfa) 1 puff PRN QID PRN IH FOR ASTHMA; Start at 16:45; Status UNV Aspirin (Children'S Aspirin) 81 mg DAILY PO Last administered on 06/24/17 08: 03; Start 06/13/17 at 09:00 Diazepam (Valium) 2.5 mg BIDAFTMEAL PO Last administered on 06/24/17 17:26; Start 06/12/17 at 18:00 Diazepam (Valium) 7.5 mg QHS PO Last administered on 06/14/17 20:24; Start 01/19 at 21:00; Stop 06/15/17 at 19:22; Status DC Duloxetine HCl (Cymbalta) 20 mg DAILY PO Last administered on 06/24/17 08:00; Start 06/13/17 at 09:00 Duloxetine HCl (Cymbalta) 30 mg DAILY PO Last administered on 06/24/17 08:01; Start 06/13/17 at 09:00 EZETIMIBE (Zetia) 10 mg QHS PO Last administered on 06/24/17 19:53; Start 01/19 at 21:00 Furosemide (Lasix) 80 mg DAILY PO Last administered on 06/24/17 08:03; Start 06/13/17 at 09:00 Gabapentin (Neurontin) 300 mg QID PO Last administered on 06/24/17 19:51; Start 06/12/17 at 17:00 Acetaminophen/ Hydrocodone Bitart (Lortab 7.5/325) 1 tab PRN Q6HRS PRN PO PAIN Last administered on 06/24/17 17:47; Start 06/12/17 at 16:45 Albuterol/ Ipratropium (Duoneb) 3 ml RTQID NEB Last administered on 06/24/17 19:44; Start 06/12/17 at 20:00 Lubiprostone (Amitiza) 24 mcg BIDWMEALS PO Last administered on 06/24/17 17:27 ; Start 06/12/17 at 17:00 Metformin HCl (Glucophage) 500 mg BIDWMEALS PO Last administered on 06/24/17 17:26; Start 06/12/17 at 17:00 Montelukast Sodium (Singulair) 10 mg QHS PO Last administered on 06/24/17 19: 49; Start 06/12/17 at 21:00 Pantoprazole Sodium (Protonix) 40 mg DAILYAC PO Last administered on 06/24/17 08:04; Start 06/13/17 at 07:30 Phenytoin Sodium (Dilantin) 400 mg QHS PO Last administered on 06/24/17 19:49 ; Start 06/12/17 at 21:00 Potassium Chloride (Klor-Con) 20 meq BID PO Last administered on 06/14/17 08: 26; Start 06/12/17 at 21:00; Stop 06/14/17 at 16:26; Status DC Primidone (Mysoline) 125 mg QID PO Last administered on 06/24/17 19:51; Start 06/12/17 at 17:00 Quetiapine Fumarate (SEROquel) 25 mg TIDAC PO ; Start 06/13/17 at 07:30; Stop at 07:30; Status DC Azelastine HCl (Astelin) 2 spray PRN BID PRN NS ALLERGIES Last administered on 06/21/17 08:07; Start 06/12/17 at 21:00 Non-Formulary Medication (Fluticasone/ Umeclidin/ Vilanter (Trelegy Ellipta 100- 62.5-25)) 1 each DAILY IH Last administered on 06/24/17 08:06; Start 06/13/17 at 09:00 Lactulose (Lactulose) 20 gm QID PO Last administered on 06/15/17 20:22; Start 06/12/17 at 21:00; Stop 06/16/17 at 18:55; Status DC Non-Formulary Medication (Levomilnacipran Hydrochloride (Fetzima)) 80 mg DAILY PO Last administered on 06/24/17 08:09; Start 06/13/17 at 09:00 Meclizine HCl (Antivert) 25 mg PRN QID PRN PO DIZZINESS; Start 06/12/17 at 17: 30 Mirtazapine (Remeron) 22.5 mg QHS PO Last administered on 06/12/17 20:36; Start 06/12/17 at 21:00; Stop 06/13/17 at 10:38; Status DC Insulin Aspart (NovoLOG) 0-7 UNITS QIDACHS SQ Last administered on 06/18/17at 12 :01; Start 06/12/17 at 21:00 Dextrose 12.5 gm PRN Q15MIN PRN IV SEE COMMENTS; Start 06/12/17 at 17:15 Quetiapine Fumarate (SEROquel) 50 mg QHS PO Last administered on 06/23/17 19: 48; Start 06/13/17 at 21:00; Stop 06/24/17 at 18:13; Status DC Potassium Chloride (Klor-Con) 20 meq TID PO Last administered on 06/24/17 19: 52; Start 06/14/17 at 21:00 Diclofenac Sodium (Voltaren) 1 tosin PRN QHS PRN TP PAIN Last administered on 20:39; Start 06/14/17 at 21:45 Diazepam (Valium) 5 mg QHS PO Last administered on 06/24/17 19:56; Start 06/15 at 21:00 Divalproex Sodium (Depakote Er) 500 mg QHS PO Last administered on 06/17/17 19 :31; Start 06/15/17 at 21:00; Stop 06/18/17 at 19:12; Status DC Diazepam (Valium) 1.5 mg QHS PO Last administered on 06/22/17 20:43; Start at 21:00; Stop 06/23/17 at 16:21; Status DC Lactulose (Lactulose) 20 gm QID PO Last administered on 06/24/17 19:49; Start 06/18/17 at 09:00 Cetirizine HCl (ZyrTEC) 10 mg DAILY PO Last administered on 06/24/17 08:02; Start 06/23/17 at 09:00 Hydrocortisone (Cortaid) 1 tosin BID TP Last administered on 06/24/17 20:04; Start 06/22/17 at 21:00 Diazepam (Valium) 0.5 mg QHS PO Last administered on 06/24/17at 19:56; Start at 21:00 Quetiapine Fumarate (SEROquel) 75 mg QHS PO Last administered on 06/24/17at 19: 51; Start 06/24/17 at 21:00 Active Scripts Active Metformin Hcl 500 Mg Tablet 500 Mg PO BIDWMEALS 90 Days Albuterol Sulfate Neb Soln (Albuterol Sulfate) 2.5 Mg/3 Ml Vial.neb 2.5 Mg NEB PRN Q6HRS PRN 30 Days Reported Cymbalta (Duloxetine Hcl) 30 Mg Capsule.dr 30 Mg PO DAILY Cymbalta (Duloxetine Hcl) 20 Mg Capsule.dr 20 Mg PO DAILY Duoneb 0.5-3(2.5) Mg/3 Ml (Albuterol/Ipratropium) 3 Ml Ampul.neb 3 Ml NEB RTQID Seroquel (Quetiapine Fumarate) 25 Mg Tablet 25 Mg PO TID Amitiza (Lubiprostone) 24 Mcg Capsule 24 Mcg PO BIDWMEALS Lactulose 10 Gm/15 Ml Solution 20 Gm PO QID Meclizine Hcl 25 Mg Tablet 1 Tab PO QID PRN LAST DOSE GIVEN: DATE: TIME: NEXT DOSE DUE: DATE: TIME: Yoel Ellipta 100-62.5-25 (Fluticasone/Umeclidin/Vilanter) 1 Each Blst.w.dev 1 Each IH DAILY Gabapentin 300 Mg Capsule 300 Mg PO QID Primidone 50 Mg Tablet 125 Mg PO QID Astepro (Azelastine Hcl) 205.5 Mcg/0.137 Ml Charmco.pump 2 Spr NS BID PRN LAST DOSE GIVEN: DATE: TODAY TIME: AM NEXT DOSE DUE: DATE: TODAY TIME: PM Ventolin Hfa Inhaler (Albuterol Sulfate) 18 Gm Hfa.aer.ad 1 Puff IH PRN QID PRN LAST DOSE GIVEN: NOT GIVEN THIS ADMISSION NEXT DOSE DUE: DATE: TODAY TIME: IF NEEDED Fetzima (Levomilnacipran Hydrochloride) 80 Mg Cap.sa.24h 80 Mg PO DAILY LAST DOSE GIVEN: DATE: TODAY TIME: AM NEXT DOSE DUE: DATE: TOMORROW TIME: AM Remeron (Mirtazapine) 45 Mg Tablet 22.5 Mg PO QHS LAST DOSE GIVEN: DATE: YES TIME: AT BEDTIME NEXT DOSE DUE: DATE: TODAY TIME: AT BEDTIME Furosemide 80 Mg Tablet 80 Mg PO DAILY LAST DOSE GIVEN: DATE: TODAY TIME: AM NEXT DOSE DUE: DATE: TIME: AM Abilify (Aripiprazole) 5 Mg Tablet 1 Tab PO QHS LAST DOSE GIVEN: DATE: YES TIME: AT BEDTIME NEXT DOSE DUE: DATE: TIME: AT BEDTIME Hydrocodone-Apap 7.5-325 (Hydrocodone Bit/Acetaminophen) 1 Each Tablet 1 Tab PO PRN Q6HRS PRN LAST DOSE GIVEN: NOT GIVEN TODAY NEXT DOSE DUE: DATE: TODAY TIME: IF NEEDED TIME: IF AND WHEN NEEDED Klor-Con M20 (Potassium Chloride) 20 Meq Tab.er.prt 20 Meq PO BID LAST DOSE GIVEN: DATE: TIME: AM NEXT DOSE DUE: DATE: TIME: PM Montelukast Sodium Tablet (Montelukast Sodium) 10 Mg Tablet 10 Mg PO QHS LAST DOSE GIVEN: DATE: YES TIME: AT BEDTIME NEXT DOSE DUE: DATE: TODAY TIME: AT BEDTIME Protonix (Pantoprazole Sodium) 40 Mg Tablet.dr 40 Mg PO DAILYAC LAST DOSE GIVEN: DATE: TODAY TIME: BEFORE BREAKFAST NEXT DOSE DUE: DATE: TOMORR TIME: BEFORE BREAKFAST Dilantin (Phenytoin Sodium Extended) 100 Mg Capsule 400 Mg PO QHS LAST DOSE GIVEN: DATE: TIME: AT BEDTIME NEXT DOSE DUE: DATE: TIME: AT BEDTIME Aspirin 81 Mg Tab.chew 81 Mg PO DAILY LAST DOSE GIVEN: DATE: TIME: AM NEXT DOSE DUE: DATE: TIME: AM Zetia (Ezetimibe) 10 Mg Tablet 10 Mg PO QHS LAST DOSE GIVEN: DATE: YES TIME: AT BEDTIME NEXT DOSE DUE: DATE: TODAY TIME: AT BEDTIME Diazepam 5 Mg Tablet 7.5 Mg PO QHS LAST DOSE GIVEN: DATE: TIME: AT BEDTIME NEXT DOSE DUE: DATE: TODAY TIME: AT BEDTIME Diazepam 5 Mg Tablet 2.5 Mg PO BIDAFTMEAL LAST DOSE GIVEN: DATE: TIME: AM NEXT DOSE DUE: DATE: TODAY TIME: AFTERNOON I have reviewed the current psychotropics carefully including drug interactions. Risk benefit ratio favors no change other than as noted in my dictated progress note. Diagnosis: Problems: (1) Anxiety disorder (2) Anxiety disorder (3) Impulse control disorder (4) Major depressive disorder, recurrent episode (5) Major depressive disorder, recurrent episode (6) Bipolar affective, mixed, severe (7) Mood disorder (8) Depression (9) Suicidal ideation SMILEY BETH MD Jun 24, 2017 20:50
--- NOTE | 2017-06-25 02:43 | PN ---
DATE: 06/22/2017 PSYCHIATRIC PROGRESS NOTE This is a late entry of 06/22/2017 covers elements not covered in my initial note of 06/22/2017. SUBJECTIVE: I met with the patient in the evening. This note is being redictated as requested by medical records. The patient has been anxious, attention seeking up to the nursing station several times and forgetful. REVIEW OF SYSTEMS: No CV, , pulmonary, eye system symptoms on review, shortness of breath at times. MENTAL STATUS EXAM: Oriented to herself and situation. Speech is coherent, has some latency. Abstraction fair, computation impaired, language function intact. Mood and affect still somewhat labile. LABORATORY DATA: Reviewed. IMPRESSION: Bipolar 1 disorder, mixed with psychotic features; cognitive disorder, unspecified; anxiety disorder, unspecified; blood sugar is unremarkable. PLAN: Continue psychotropics mentioned in my initial note. MAN Rivka BETH MD DR: CHRIS/elisa JOB#: [id number] / [id number]
--- NOTE | 2017-06-25 02:51 | PN ---
DATE: 06/23/2017 This is a late entry of 06/23/2017 covers elements not covered in my initial note of 06/23/2017. I met with the patient in the afternoon. SUBJECTIVE: This note is being re-dictated as requested by medical records. She did well previous evening and better during the day of 06/23/2017, somewhat confused about her liver problems. REVIEW OF SYSTEMS: No CV, , pulmonary, eye system symptoms on review. Some shortness of breath, impaired ambulation. MENTAL STATUS EXAM: Oriented to herself and situation. Speech coherent, less pressured. Abstraction fair, computation impaired, language function intact, attention span short. Mood and affect, somewhat anxious, labile at times. LABORATORY DATA: Reviewed. IMPRESSION: Bipolar 1 disorder, mixed with psychotic features; anxiety disorder, unspecified. PLAN: Decrease bedtime Valium from 6.5 mg to 5.5 mg. Continue rest unchanged. MAN Rivka BETH MD DR: CHRIS/elisa JOB#: [id number] / [id number]
[2017-06-25] MEDS: IPRATRPIUM/ALBUTEROL 0.5/2.5MG 3 ML NEBU. NEB SCH ×4 (04:45→22:03)
[2017-06-25 06:36] VITALS: BP 115/73
[2017-06-25] MEDS: INSULIN ASPART 300 UNITS/3 ML INSULN.PEN SQ SCH ×4 (07:30→21:00)
[2017-06-25] MEDS: CETIRIZINE HCL 10 MG TABLET PO SCH (08:16)
[2017-06-25] MEDS: Fluticasone/Umeclidin/Vilanter (Trelegy Ellipta 100-62.5-25) IH SCH (08:16)
[2017-06-25] MEDS: LACTULOSE 20 GM/30 ML SOLUTION. PO SCH ×4 (08:16→20:01)
[2017-06-25] MEDS: DULoxetine HCL 20 MG CAPSULE.DR PO SCH (08:17)
[2017-06-25] MEDS: PRIMIDONE 50 MG TABLET PO SCH ×4 (08:17→20:03)
[2017-06-25] MEDS: GABAPENTIN 300 MG CAPSULE. PO SCH ×4 (08:18→20:02)
[2017-06-25] MEDS: PANTOPRAZOLE 40 MG TABLET. PO SCH (08:18)
[2017-06-25] MEDS: ASPIRIN 81 MG TAB.CHEW PO SCH (08:18)
[2017-06-25] MEDS: FUROSEMIDE 80 MG TABLET PO SCH (08:18)
[2017-06-25] MEDS: metFORMIN 500 MG TABLET PO SCH ×2 (08:18→16:43)
[2017-06-25] MEDS: POTASSIUM CHLORIDE 20 MEQ TABLET.ER. PO SCH ×3 (08:19→20:04)
[2017-06-25] MEDS: LEVOMILNACIPRAN HYDROCHLORIDE 80 MG PO SCH (08:19)
[2017-06-25] MEDS: LUBIPROSTONE 24 MCG CAPSULE PO SCH ×2 (08:19→16:46)
[2017-06-25] MEDS: DULoxetine HCL 30 MG CAPSULE.DR PO SCH (08:21)
[2017-06-25] MEDS: diazePAM 5 MG TABLET PO SCH ×3 (08:22→21:00)
[2017-06-25] MEDS: HYDROCORTISONE 1% TOPICAL CREAM 30GM TUBE. TP SCH ×2 (08:22→22:02)
--- NOTE | 2017-06-25 16:04 | NUR ---
Behavior Intervention Response and Plan: BIRP Note: Behavior: Assumed Care of patient, patient located in Hallway at shift change. Patient exhibited the following behavior Calm, Compliant, Cooperative. Brief assessment on rounds of vital signs, medication needs, lab studies, and pain. Treatment plan problems 1-2. Intervention: Patient assessed and the following interventions initiated safety checks 15 Minute Checks Cognitive Assessment , Head to toe Assessment , Medications. Response: After interactions and interventions patient responded in the following manner, Calm , Interactive ,Compliant. Continue to assess behaviors and condition will continue to monitor throughout the shift as needed. Patient educated on ADL's, and hand hygiene. Plan: Continue to monitor Master Treatment Plan for patient's progress toward short term goals of Improved Mood, No harm To self/ others, residential goals to return to previous living setting vs placement. Continue to assess patient for changes in above assessment. Monitor for medication needs, pain, and safety concerns. Hourly rounding performed to ensure safe environment.
--- NOTE | 2017-06-25 20:00 | NUR ---
Behavior Intervention Response and Plan: BIRP Note: Behavior: Assumed Care of patient, patient located in Hallway at shift change. Patient exhibited the following behavior Calm, Compliant, Cooperative. Brief assessment on rounds of vital signs, medication needs, lab studies, and pain. Treatment plan problems . Intervention: Patient assessed and the following interventions initiated safety checks 15 Minute Checks Cognitive Assessment , Head to toe Assessment , Medications. Response: After interactions and interventions patient responded in the following manner, Cooperative , Compliant ,Appropriate. Continue to assess behaviors and condition will continue to monitor throughout the shift as needed. Patient educated on ADL's, and hand hygiene. 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 Continue to assess patient for changes in above assessment. Monitor for medication needs, pain, and safety concerns. Hourly rounding performed to ensure safe environment.
[2017-06-25] MEDS: QUEtiapine 50 MG TABLET. PO SCH (20:02)
[2017-06-25] MEDS: EZETIMIBE 10 MG TABLET PO SCH (20:02)
[2017-06-25] MEDS: PHENYTOIN SODIUM EXTENDED 100 MG CAPSULE PO SCH (20:02)
[2017-06-25] MEDS: MONTELUKAST 10 MG TABLET. PO SCH (20:05)
--- NOTE | 2017-06-25 20:49 | PDOC ---
Exam Note: Morales Note: Please also refer to the separate dictated note~for this date of service dictated separately.~Patient seen individually. Discussed the patient with Nursing staff reviewed the chart.~Reviewed interim history and current functioning. Reviewed vital signs,~Labs/ Radiology~and current medications noted below. Continue current treatment with the changes noted in the dictated addendum note Assessment: Vital Signs: Vital Signs Date Time Temp Pulse Resp B/P (MAP) Pulse Ox O2 Delivery O2 Flow Rate FiO2 06/25/17 15:53 98 Room Air 06/25/17 06:36 98.0 95 20 115/73 (87) 06/24/17 06:36 20.0 I&O Intake and Output 06/25/17 07:00 Intake Total 1200 ml Balance 1200 ml Intake Oral 1200 ml Labs: Laboratory Tests Test 06/25/17 07:08 06/25/17 11:32 06/25/17 16:08 06/25/17 19:31 Glucose (Fingerstick) 122 mg/dL (70-99) H 134 mg/dL (70-99) H 112 mg/dL (70-99) H 109 mg/dL (70-99) H Current Medications: Meds: Current Medications Acetaminophen (Tylenol) 650 mg PRN Q6HRS PRN PO PAIN / TEMP; Start 06/12/17 at 16:45 Multi-Ingredient Ointment (Analgesic [place]) 1 tosin PRN QID PRN TP MUSCLE PAIN; Start 06/12/17 at 16:45 Al Hydroxide/Mg Hydroxide (Mylanta Plus Xs) 15 ml PRN AFTMEALHC PRN PO DYSPEPSIA; Start 06/12/17 at 16:45 Magnesium Hydroxide (Milk Of Magnesia) 2,400 mg PRN QHS PRN PO CONSTIPATION; Start 06/12/17 at 16:45 Albuterol Sulfate (Ventolin) 2.5 mg PRN Q6HRS PRN NEB SHORTNESS OF BREATH Last administered on 06/15/17at 06:00; Start 06/12/17 at 16:45 Albuterol Sulfate (Ventolin Hfa) 1 puff PRN QID PRN IH FOR ASTHMA; Start at 16:45; Status UNV Aspirin (Children'S Aspirin) 81 mg DAILY PO Last administered on 06/25/17at 08: 18; Start 06/13/17 at 09:00 Diazepam (Valium) 2.5 mg BIDAFTMEAL PO Last administered on 06/25/17 17:22; Start 06/12/17 at 18:00 Diazepam (Valium) 7.5 mg QHS PO Last administered on 06/14/17 20:24; Start 01/19 at 21:00; Stop 06/15/17 at 19:22; Status DC Duloxetine HCl (Cymbalta) 20 mg DAILY PO Last administered on 06/25/17 08:17; Start 06/13/17 at 09:00 Duloxetine HCl (Cymbalta) 30 mg DAILY PO Last administered on 06/25/17 08:21; Start 06/13/17 at 09:00 EZETIMIBE (Zetia) 10 mg QHS PO Last administered on 06/25/17 20:02; Start 01/19 at 21:00 Furosemide (Lasix) 80 mg DAILY PO Last administered on 06/25/17 08:18; Start 06/13/17 at 09:00 Gabapentin (Neurontin) 300 mg QID PO Last administered on 06/25/17 20:02; Start 06/12/17 at 17:00 Acetaminophen/ Hydrocodone Bitart (Lortab 7.5/325) 1 tab PRN Q6HRS PRN PO PAIN Last administered on 06/24/17 17:47; Start 06/12/17 at 16:45 Albuterol/ Ipratropium (Duoneb) 3 ml RTQID NEB Last administered on 06/25/17 15:52; Start 06/12/17 at 20:00 Lubiprostone (Amitiza) 24 mcg BIDWMEALS PO Last administered on 06/25/17 16:46 ; Start 06/12/17 at 17:00 Metformin HCl (Glucophage) 500 mg BIDWMEALS PO Last administered on 06/25/17 16:43; Start 06/12/17 at 17:00 Montelukast Sodium (Singulair) 10 mg QHS PO Last administered on 06/25/17 20: 05; Start 06/12/17 at 21:00 Pantoprazole Sodium (Protonix) 40 mg DAILYAC PO Last administered on 06/25/17 08:18; Start 06/13/17 at 07:30 Phenytoin Sodium (Dilantin) 400 mg QHS PO Last administered on 06/25/17 20:02 ; Start 06/12/17 at 21:00 Potassium Chloride (Klor-Con) 20 meq BID PO Last administered on 06/14/17at 08: 26; Start 06/12/17 at 21:00; Stop 06/14/17 at 16:26; Status DC Primidone (Mysoline) 125 mg QID PO Last administered on 06/25/17 20:03; Start 06/12/17 at 17:00 Quetiapine Fumarate (SEROquel) 25 mg TIDAC PO ; Start 06/13/17 at 07:30; Stop at 07:30; Status DC Azelastine HCl (Astelin) 2 spray PRN BID PRN NS ALLERGIES Last administered on 06/21/17 08:07; Start 06/12/17 at 21:00 Non-Formulary Medication (Fluticasone/ Umeclidin/ Vilanter (Trelegy Ellipta 100- 62.5-25)) 1 each DAILY IH Last administered on 06/25/17 08:16; Start 06/13/17 at 09:00 Lactulose (Lactulose) 20 gm QID PO Last administered on 06/15/17at 20:22; Start 06/12/17 at 21:00; Stop 06/16/17 at 18:55; Status DC Non-Formulary Medication (Levomilnacipran Hydrochloride (Fetzima)) 80 mg DAILY PO Last administered on 06/25/17at 08:19; Start 06/13/17 at 09:00 Meclizine HCl (Antivert) 25 mg PRN QID PRN PO DIZZINESS; Start 06/12/17 at 17: 30 Mirtazapine (Remeron) 22.5 mg QHS PO Last administered on 06/12/17at 20:36; Start 06/12/17 at 21:00; Stop 06/13/17 at 10:38; Status DC Insulin Aspart (NovoLOG) 0-7 UNITS QIDACHS SQ Last administered on 06/18/17at 12 :01; Start 06/12/17 at 21:00 Dextrose 12.5 gm PRN Q15MIN PRN IV SEE COMMENTS; Start 06/12/17 at 17:15 Quetiapine Fumarate (SEROquel) 50 mg QHS PO Last administered on 06/23/17 19: 48; Start 06/13/17 at 21:00; Stop 06/24/17 at 18:13; Status DC Potassium Chloride (Klor-Con) 20 meq TID PO Last administered on 06/25/17 20: 04; Start 06/14/17 at 21:00 Diclofenac Sodium (Voltaren) 1 tosin PRN QHS PRN TP PAIN Last administered on 20:39; Start 06/14/17 at 21:45 Diazepam (Valium) 5 mg QHS PO Last administered on 06/24/17 19:56; Start 06/15 at 21:00 Divalproex Sodium (Depakote Er) 500 mg QHS PO Last administered on 06/17/17 19 :31; Start 06/15/17 at 21:00; Stop 06/18/17 at 19:12; Status DC Diazepam (Valium) 1.5 mg QHS PO Last administered on 06/22/17 20:43; Start at 21:00; Stop 06/23/17 at 16:21; Status DC Lactulose (Lactulose) 20 gm QID PO Last administered on 06/25/17 20:01; Start 06/18/17 at 09:00 Cetirizine HCl (ZyrTEC) 10 mg DAILY PO Last administered on 06/25/17 08:16; Start 06/23/17 at 09:00 Hydrocortisone (Cortaid) 1 tosin BID TP Last administered on 06/25/17 08:22; Start 06/22/17 at 21:00 Diazepam (Valium) 0.5 mg QHS PO Last administered on 06/24/17 19:56; Start at 21:00; Stop 06/26/17 at 20:59 Quetiapine Fumarate (SEROquel) 75 mg QHS PO Last administered on 06/25/17 20: 02; Start 06/24/17 at 21:00 Oxcarbazepine (Trileptal) 300 mg DAILY PO Last administered on 06/25/17 16:54 ; Start 06/25/17 at 17:00 Active Scripts Active Metformin Hcl 500 Mg Tablet 500 Mg PO BIDWMEALS 90 Days Albuterol Sulfate Neb Soln (Albuterol Sulfate) 2.5 Mg/3 Ml Vial.neb 2.5 Mg NEB PRN Q6HRS PRN 30 Days Reported Cymbalta (Duloxetine Hcl) 30 Mg Capsule.dr 30 Mg PO DAILY Cymbalta (Duloxetine Hcl) 20 Mg Capsule.dr 20 Mg PO DAILY Duoneb 0.5-3(2.5) Mg/3 Ml (Albuterol/Ipratropium) 3 Ml Ampul.neb 3 Ml NEB RTQID Seroquel (Quetiapine Fumarate) 25 Mg Tablet 25 Mg PO TID Amitiza (Lubiprostone) 24 Mcg Capsule 24 Mcg PO BIDWMEALS Lactulose 10 Gm/15 Ml Solution 20 Gm PO QID Meclizine Hcl 25 Mg Tablet 1 Tab PO QID PRN LAST DOSE GIVEN: DATE: TIME: NEXT DOSE DUE: DATE: TIME: Trelegy Ellipta 100-62.5-25 (Fluticasone/Umeclidin/Vilanter) 1 Each Blst.w.dev 1 Each IH DAILY Gabapentin 300 Mg Capsule 300 Mg PO QID Primidone 50 Mg Tablet 125 Mg PO QID Astepro (Azelastine Hcl) 205.5 Mcg/0.137 Ml [place].pump 2 Spr NS BID PRN LAST DOSE GIVEN: DATE: TODAY TIME: AM NEXT DOSE DUE: DATE: TODAY TIME: PM Ventolin Hfa Inhaler (Albuterol Sulfate) 18 Gm Hfa.aer.ad 1 Puff IH PRN QID PRN LAST DOSE GIVEN: NOT GIVEN THIS ADMISSION NEXT DOSE DUE: DATE: TODAY TIME: IF NEEDED Fetzima (Levomilnacipran Hydrochloride) 80 Mg Cap.sa.24h 80 Mg PO DAILY LAST DOSE GIVEN: DATE: TODAY TIME: AM NEXT DOSE DUE: DATE: TOMORROW TIME: AM Remeron (Mirtazapine) 45 Mg Tablet 22.5 Mg PO QHS LAST DOSE GIVEN: DATE: YESTERDAY TIME: AT BEDTIME NEXT DOSE DUE: DATE: TODAY TIME: AT BEDTIME Furosemide 80 Mg Tablet 80 Mg PO DAILY LAST DOSE GIVEN: DATE: TODAY TIME: AM NEXT DOSE DUE: DATE: TOMORROW TIME: AM Abilify (Aripiprazole) 5 Mg Tablet 1 Tab PO QHS LAST DOSE GIVEN: DATE: YESTER TIME: AT BEDTIME NEXT DOSE DUE: DATE: TODAY TIME: AT BEDTIME Hydrocodone-Apap 7.5-325 (Hydrocodone Bit/Acetaminophen) 1 Each Tablet 1 Tab PO PRN Q6HRS PRN LAST DOSE GIVEN: NOT GIVEN TODAY NEXT DOSE DUE: DATE: TODAY TIME: IF NEEDED TIME: IF AND WHEN NEEDED Klor-Con M20 (Potassium Chloride) 20 Meq Tab.er.prt 20 Meq PO BID LAST DOSE GIVEN: DATE: TODAY TIME: AM NEXT DOSE DUE: DATE: TODAY TIME: PM Montelukast Sodium Tablet (Montelukast Sodium) 10 Mg Tablet 10 Mg PO QHS LAST DOSE GIVEN: DATE: YES TIME: AT BEDTIME NEXT DOSE DUE: DATE: TODAY TIME: AT BEDTIME Protonix (Pantoprazole Sodium) 40 Mg Tablet.dr 40 Mg PO DAILYAC LAST DOSE GIVEN: DATE: TIME: BEFORE BREAKFAST NEXT DOSE DUE: DATE: TOMORROW TIME: BEFORE BREAKFAST Dilantin (Phenytoin Sodium Extended) 100 Mg Capsule 400 Mg PO QHS LAST DOSE GIVEN: DATE: YESTER TIME: AT BEDTIME NEXT DOSE DUE: DATE: TODAY TIME: AT BEDTIME Aspirin 81 Mg Tab.chew 81 Mg PO DAILY LAST DOSE GIVEN: DATE: TODAY TIME: AM NEXT DOSE DUE: DATE: TOMORROW TIME: AM Zetia (Ezetimibe) 10 Mg Tablet 10 Mg PO QHS LAST DOSE GIVEN: DATE: YES TIME: AT BEDTIME NEXT DOSE DUE: DATE: TIME: AT BEDTIME Diazepam 5 Mg Tablet 7.5 Mg PO QHS LAST DOSE GIVEN: DATE: YES TIME: AT BEDTIME NEXT DOSE DUE: DATE: TODAY TIME: AT BEDTIME Diazepam 5 Mg Tablet 2.5 Mg PO BIDAFTMEAL LAST DOSE GIVEN: DATE: TODAY TIME: AM NEXT DOSE DUE: DATE: TODAY TIME: AFTERNOON I have reviewed the current psychotropics carefully including drug interactions. Risk benefit ratio favors no change other than as noted in my dictated progress note. Diagnosis: Problems: (1) Anxiety disorder (2) Anxiety disorder (3) Impulse control disorder (4) Major depressive disorder, recurrent episode (5) Major depressive disorder, recurrent episode (6) Bipolar affective, mixed, severe (7) Mood disorder (8) Depression (9) Suicidal ideation SMILEY BETH MD Jun 25, 2017 20:49
[2017-06-25] MEDS: diazePAM 2 MG TABLET PO SCH (22:02)
--- NOTE | 2017-06-25 23:03 | PN ---
DATE: 06/24/2017 This is a late entry of 06/24/2017, covers the elements not covered in my initial note, 06/24/2017. SUBJECTIVE: I met with the patient at length evening of 06/24/2017. The patient slept 7-1/2 hours previous evening. She is quite obsessive, fixated on her ammonia level, which is showing some improvement. Lactulose might need to be increased. REVIEW OF SYSTEMS: Shortness of breath, impaired ambulation. No CV, , eye, ENT system symptoms on review. MENTAL STATUS EXAM: Oriented to herself and situation. Speech coherent, little pressured at times. Abstraction fair, computation impaired, language function intact, attention span short. Mood and affect still somewhat anxious, labile, obsessive. LABORATORY DATA: Reviewed. IMPRESSION: Bipolar 1 disorder, mixed with psychotic features. PLAN: Increase Seroquel to 75 mg by mouth at bedtime. Valium is being tapered. She is on Dilantin, Cymbalta, Mysoline, may need to add Trileptal as a mood stabilizer and in fact, we will go ahead and starting 06/25/2017. We will start Trileptal 300 mg once a day. SMILEY BETH MD DR: CHRIS/elisa JOB#: [id number] / [id number]
[2017-06-26] MEDS: IPRATRPIUM/ALBUTEROL 0.5/2.5MG 3 ML NEBU. NEB SCH ×4 (05:25→22:13)
[2017-06-26 06:37] VITALS: BP 124/75
[2017-06-26] MEDS: INSULIN ASPART 300 UNITS/3 ML INSULN.PEN SQ SCH ×4 (07:30→21:00)
[2017-06-26 08:08] LABS: BASO % 1 % (0-3); EOS # 0.2 x10^3/uL (0.0-0.7); EOS % 5 % (0-3); HEMATOCRIT 33.5 % (36.0-47.0); HEMOGLOBIN 11.5 g/dL (12.0-15.5); LYMPH # 1.4 x10^3/uL (1.0-4.8); LYMPH % 29 % (24-48); MEAN CORPUSCULAR HEMOGLOBIN 31 pg (25-35); MEAN CORPUSCULAR HGB CONC 34 g/dL (31-37); MEAN CORPUSCULAR VOLUME 91 fL (79-100); MONO # 0.4 x10^3/uL (0.0-1.1); MONO % 9 % (0-9); NEUT # 2.6 x10^3uL (1.8-7.7); NEUT % 56 % (31-73); PLATELET COUNT 200 x10^3/uL (140-400); RED BLOOD COUNT 3.68 x10^6/uL (3.50-5.40); RED CELL DISTRIBUTION WIDTH 16.4 % (11.5-14.5); WHITE BLOOD COUNT 4.7 x10^3/uL (4.0-11.0)
[2017-06-26] MEDS: LACTULOSE 20 GM/30 ML SOLUTION. PO SCH ×4 (08:18→21:30)
[2017-06-26] MEDS: DULoxetine HCL 30 MG CAPSULE.DR PO SCH (08:19)
[2017-06-26] MEDS: PRIMIDONE 50 MG TABLET PO SCH ×4 (08:19→21:28)
[2017-06-26] MEDS: PANTOPRAZOLE 40 MG TABLET. PO SCH (08:19)
[2017-06-26] MEDS: DULoxetine HCL 20 MG CAPSULE.DR PO SCH (08:19)
[2017-06-26] MEDS: CETIRIZINE HCL 10 MG TABLET PO SCH (08:20)
[2017-06-26] MEDS: metFORMIN 500 MG TABLET PO SCH ×2 (08:20→17:16)
[2017-06-26] MEDS: GABAPENTIN 300 MG CAPSULE. PO SCH ×4 (08:20→21:30)
[2017-06-26] MEDS: FUROSEMIDE 80 MG TABLET PO SCH (08:20)
[2017-06-26] MEDS: POTASSIUM CHLORIDE 20 MEQ TABLET.ER. PO SCH ×3 (08:20→21:30)
[2017-06-26] MEDS: ASPIRIN 81 MG TAB.CHEW PO SCH (08:20)
[2017-06-26] MEDS: LEVOMILNACIPRAN HYDROCHLORIDE 80 MG PO SCH (08:21)
[2017-06-26] MEDS: LUBIPROSTONE 24 MCG CAPSULE PO SCH ×2 (08:21→17:18)
[2017-06-26] MEDS: Fluticasone/Umeclidin/Vilanter (Trelegy Ellipta 100-62.5-25) IH SCH (08:22)
[2017-06-26 08:23] LABS: ALBUMIN/GLOBULIN RATIO 0.7 (1.0-1.7); CALCIUM 8.5 mg/dL (8.5-10.1); CREATININE 0.8 mg/dL (0.6-1.0); GFR 71.8; MAGNESIUM 2.1 mg/dL (1.8-2.4); TOTAL BILIRUBIN 0.2 mg/dL (0.2-1.0); TOTAL PROTEIN 7.6 g/dL (6.4-8.2)
[2017-06-26] MEDS: HYDROCORTISONE 1% TOPICAL CREAM 30GM TUBE. TP SCH ×2 (08:24→21:00)
[2017-06-26] MEDS: diazePAM 5 MG TABLET PO SCH ×3 (08:24→21:00)
--- NOTE | 2017-06-26 10:35 | NUR ---
Behavior Intervention Response and Plan: BIRP Note: Behavior: Assumed Care of patient, patient located in Patient Room at shift change. Patient exhibited the following behavior Interactive, Disorganized, Drowsy. Brief assessment on rounds of vital signs, medication needs, lab studies, and pain. Treatment plan problems 1 & 2. Intervention: Patient assessed and the following interventions initiated safety checks 15 Minute Checks Cognitive Assessment , Head to toe Assessment , Medications. Response: After interactions and interventions patient responded in the following manner, Calm , Appropriate ,Compliant. Continue to assess behaviors and condition will continue to monitor throughout the shift as needed. Patient educated on ADL's, and hand hygiene. Plan: Continue to monitor Master Treatment Plan for patient's progress toward short term goals of Decreased Agitation, No harm To self/ others, skilled nursing goals to return to previous living setting vs placement. Continue to assess patient for changes in above assessment. Monitor for medication needs, pain, and safety concerns. Hourly rounding performed to ensure safe environment.
--- NOTE | 2017-06-26 15:00 | NUR ---
WEEKLY THERAPEUTIC RECREATION NOTE Date of Admission: 06/12/2017 Date of AT Assessment: 06/12/2017 Goal aimed: to increase socialization and leisure awareness Initial goal: Pt. will participate in at least three groups per day Weekly progress towards goal: on track Group participation level: moderate to full Behaviors observed: actively engages in groups more as the week is progressing, pleasant, social Plan: no changes to goal
[2017-06-26 15:49] VITALS: BP 130/71
--- NOTE | 2017-06-26 18:25 | NUR ---
Notified pharmacy of consult order related to patient's elevated ammonia level.
--- NOTE | 2017-06-26 20:21 | NUR ---
PHARMACY CONSULT: Pharmacy was consulted due to elevated ammonia levels in the patient, this patient has had a past history of hepatic encephalopathy and elevated ammonia, she is on multiple medications that can contribute to her hyperammonemia i.e. phenytoin, primidone, diazepam, (and now Trileptal/ with previous doses of Depakote) all of which affect each other's metabolisms and can potentially cause hyperammonemia. The patient has had an episode similar to this on a past admission last year when her primidone was increased, the ammonia eventually resolved and returned to normal despite the dose increase. Because the patient was just started on the Trileptal on 06/25 it is likely that these elevations in ammonia are transient and will resolve over the next several days, there does not appear to be any serious liver injuries as the AST/ALT have been consistently normal as was the case during her admission in August of last year. Recommendations: 1) continue the decrease of diazepam 2) continue to monitor ammonia levels, these should improve in the next few days as diazepam is tapered down 3) slow titration of Trileptal if higher doses are needed to ensure transient rises in ammonia do not become dangerous and symptomatic 4) potentially decreasing doses of the other drugs i.e. primidone/phenytoin if the patient can tolerate it without precipitating seizures.
--- NOTE | 2017-06-26 20:27 | PDOC ---
Exam Note: Morales Note: Please also refer to the separate dictated note~for this date of service dictated separately.~Patient seen individually. Discussed the patient with Nursing staff reviewed the chart.~Reviewed interim history and current functioning. Reviewed vital signs,~Labs/ Radiology~and current medications noted below. Continue current treatment with the changes noted in the dictated addendum note Assessment: Vital Signs: Vital Signs Date Time Temp Pulse Resp B/P (MAP) Pulse Ox O2 Delivery O2 Flow Rate FiO2 06/26/17 16:30 93 Room Air 06/26/17 15:49 98.4 94 20 130/71 (90) 06/24/17 06:36 20.0 I&O Intake and Output 06/26/17 07:00 Intake Total 1440 ml Balance 1440 ml Intake Oral 1440 ml Labs: Laboratory Tests Test 06/26/17 07:46 06/26/17 07:47 06/26/17 11:20 06/26/17 16:57 White Blood Count 4.7 x10^3/uL (4.0-11.0) Red Blood Count 3.68 x10^6/uL (3.50-5.40) Hemoglobin 11.5 g/dL (12.0-15.5) L Hematocrit 33.5 % (36.0-47.0) L Mean Corpuscular Volume 91 fL (79-100) Mean Corpuscular Hemoglobin 31 pg (25-35) Mean Corpuscular Hemoglobin Concent 34 g/dL (31-37) Red Cell Distribution Width 16.4 % (11.5-14.5) H Platelet Count 200 x10^3/uL (140-400) Neutrophils (%) (Auto) 56 % (31-73) Lymphocytes (%) (Auto) 29 % (24-48) Monocytes (%) (Auto) 9 % (0-9) Eosinophils (%) (Auto) 5 % (0-3) H Basophils (%) (Auto) 1 % (0-3) Neutrophils # (Auto) 2.6 x10^3uL (1.8-7.7) Lymphocytes # (Auto) 1.4 x10^3/uL (1.0-4.8) Monocytes # (Auto) 0.4 x10^3/uL (0.0-1.1) Eosinophils # (Auto) 0.2 x10^3/uL (0.0-0.7) Basophils # (Auto) 0.0 x10^3/uL (0.0-0.2) Sodium Level 141 mmol/L (136-145) Potassium Level 4.0 mmol/L (3.5-5.1) Chloride Level 102 mmol/L (98-107) Carbon Dioxide Level 32 mmol/L (21-32) Anion Gap 7 (6-14) Blood Urea Nitrogen 14 mg/dL (7-20) Creatinine 0.8 mg/dL (0.6-1.0) Estimated GFR (Cockcroft-Gault) 71.8 BUN/Creatinine Ratio 18 (6-20) Glucose Level 134 mg/dL (70-99) H Calcium Level 8.5 mg/dL (8.5-10.1) Magnesium Level 2.1 mg/dL (1.8-2.4) Total Bilirubin 0.2 mg/dL (0.2-1.0) Aspartate Amino Transferase (AST) 20 U/L (15-37) Alanine Aminotransferase (ALT) 24 U/L (14-59) Alkaline Phosphatase 178 U/L (46-116) H Ammonia 182 mcmol/L (11-34) H Total Protein 7.6 g/dL (6.4-8.2) Albumin 3.0 g/dL (3.4-5.0) L Albumin/Globulin Ratio 0.7 (1.0-1.7) L Glucose (Fingerstick) 126 mg/dL (70-99) H 97 mg/dL (70-99) 126 mg/dL (70-99) H Current Medications: Meds: Current Medications Acetaminophen (Tylenol) 650 mg PRN Q6HRS PRN PO PAIN / TEMP; Start 06/12/17 at 16:45 Multi-Ingredient Ointment (Analgesic [place]) 1 tosin PRN QID PRN TP MUSCLE PAIN; Start 06/12/17 at 16:45 Al Hydroxide/Mg Hydroxide (Mylanta Plus Xs) 15 ml PRN AFTMEALHC PRN PO DYSPEPSIA; Start 06/12/17 at 16:45 Magnesium Hydroxide (Milk Of Magnesia) 2,400 mg PRN QHS PRN PO CONSTIPATION; Start 06/12/17 at 16:45 Albuterol Sulfate (Ventolin) 2.5 mg PRN Q6HRS PRN NEB SHORTNESS OF BREATH Last administered on 06/15/17 06:00; Start 06/12/17 at 16:45 Albuterol Sulfate (Ventolin Hfa) 1 puff PRN QID PRN IH FOR ASTHMA; Start at 16:45; Status UNV Aspirin (Children'S Aspirin) 81 mg DAILY PO Last administered on 06/26/17 08: 20; Start 06/13/17 at 09:00 Diazepam (Valium) 2.5 mg BIDAFTMEAL PO Last administered on 06/26/17 17:16; Start 06/12/17 at 18:00 Diazepam (Valium) 7.5 mg QHS PO Last administered on 06/14/17 20:24; Start 01/19 at 21:00; Stop 06/15/17 at 19:22; Status DC Duloxetine HCl (Cymbalta) 20 mg DAILY PO Last administered on 06/26/17 08:19; Start 06/13/17 at 09:00 Duloxetine HCl (Cymbalta) 30 mg DAILY PO Last administered on 06/26/17 08:19; Start 06/13/17 at 09:00 EZETIMIBE (Zetia) 10 mg QHS PO Last administered on 06/25/17 20:02; Start 01/19 at 21:00 Furosemide (Lasix) 80 mg DAILY PO Last administered on 06/26/17 08:20; Start 06/13/17 at 09:00 Gabapentin (Neurontin) 300 mg QID PO Last administered on 06/26/17 17:16; Start 06/12/17 at 17:00 Acetaminophen/ Hydrocodone Bitart (Lortab 7.5/325) 1 tab PRN Q6HRS PRN PO PAIN Last administered on 06/24/17 17:47; Start 06/12/17 at 16:45 Albuterol/ Ipratropium (Duoneb) 3 ml RTQID NEB Last administered on 06/26/17 16:29; Start 06/12/17 at 20:00 Lubiprostone (Amitiza) 24 mcg BIDWMEALS PO Last administered on 06/26/17 17:18 ; Start 06/12/17 at 17:00 Metformin HCl (Glucophage) 500 mg BIDWMEALS PO Last administered on 06/26/17 17:16; Start 06/12/17 at 17:00 Montelukast Sodium (Singulair) 10 mg QHS PO Last administered on 06/25/17 20: 05; Start 06/12/17 at 21:00 Pantoprazole Sodium (Protonix) 40 mg DAILYAC PO Last administered on 06/26/17 08:19; Start 06/13/17 at 07:30 Phenytoin Sodium (Dilantin) 400 mg QHS PO Last administered on 06/25/17 20:02 ; Start 06/12/17 at 21:00 Potassium Chloride (Klor-Con) 20 meq BID PO Last administered on 06/14/17 08: 26; Start 06/12/17 at 21:00; Stop 06/14/17 at 16:26; Status DC Primidone (Mysoline) 125 mg QID PO Last administered on 06/26/17 17:16; Start 06/12/17 at 17:00 Quetiapine Fumarate (SEROquel) 25 mg TIDAC PO ; Start 06/13/17 at 07:30; Stop at 07:30; Status DC Azelastine HCl (Astelin) 2 spray PRN BID PRN NS ALLERGIES Last administered on 06/21/17 08:07; Start 06/12/17 at 21:00 Non-Formulary Medication (Fluticasone/ Umeclidin/ Vilanter (Trelegy Ellipta 100- 62.5-25)) 1 each DAILY IH Last administered on 06/26/17 08:22; Start 06/13/17 at 09:00 Lactulose (Lactulose) 20 gm QID PO Last administered on 06/15/17 20:22; Start 06/12/17 at 21:00; Stop 06/16/17 at 18:55; Status DC Non-Formulary Medication (Levomilnacipran Hydrochloride (Fetzima)) 80 mg DAILY PO Last administered on 06/26/17 08:21; Start 06/13/17 at 09:00 Meclizine HCl (Antivert) 25 mg PRN QID PRN PO DIZZINESS; Start 06/12/17 at 17: 30 Mirtazapine (Remeron) 22.5 mg QHS PO Last administered on 06/12/17 20:36; Start 06/12/17 at 21:00; Stop 06/13/17 at 10:38; Status DC Insulin Aspart (NovoLOG) 0-7 UNITS QIDACHS SQ Last administered on 06/18/17 12 :01; Start 06/12/17 at 21:00 Dextrose 12.5 gm PRN Q15MIN PRN IV SEE COMMENTS; Start 06/12/17 at 17:15 Quetiapine Fumarate (SEROquel) 50 mg QHS PO Last administered on 06/23/17 19: 48; Start 06/13/17 at 21:00; Stop 06/24/17 at 18:13; Status DC Potassium Chloride (Klor-Con) 20 meq TID PO Last administered on 06/26/17 13: 59; Start 06/14/17 at 21:00 Diclofenac Sodium (Voltaren) 1 tosin PRN QHS PRN TP PAIN Last administered on at 20:39; Start 06/14/17 at 21:45 Diazepam (Valium) 5 mg QHS PO Last administered on 06/25/17 21:00; Start 06/15 at 21:00 Divalproex Sodium (Depakote Er) 500 mg QHS PO Last administered on 06/17/17 19 :31; Start 06/15/17 at 21:00; Stop 06/18/17 at 19:12; Status DC Diazepam (Valium) 1.5 mg QHS PO Last administered on 06/22/17at 20:43; Start at 21:00; Stop 06/23/17 at 16:21; Status DC Lactulose (Lactulose) 20 gm QID PO Last administered on 06/26/17 17:16; Start 06/18/17 at 09:00 Cetirizine HCl (ZyrTEC) 10 mg DAILY PO Last administered on 06/26/17 08:20; Start 06/23/17 at 09:00 Hydrocortisone (Cortaid) 1 tosin BID TP Last administered on 06/26/17 08:24; Start 06/22/17 at 21:00 Diazepam (Valium) 0.5 mg QHS PO Last administered on 4/24/18at 22:02; Start at 21:00; Stop 06/26/17 at 20:59 Quetiapine Fumarate (SEROquel) 75 mg QHS PO Last administered on 06/25/17at 20: 02; Start 06/24/17 at 21:00 Oxcarbazepine (Trileptal) 300 mg DAILY PO Last administered on 06/26/17at 08:20 ; Start 06/25/17 at 17:00 Active Scripts Active Metformin Hcl 500 Mg Tablet 500 Mg PO BIDWMEALS 90 Days Albuterol Sulfate Neb Soln (Albuterol Sulfate) 2.5 Mg/3 Ml Vial.neb 2.5 Mg NEB PRN Q6HRS PRN 30 Days Reported Cymbalta (Duloxetine Hcl) 30 Mg Capsule.dr 30 Mg PO DAILY Cymbalta (Duloxetine Hcl) 20 Mg Capsule.dr 20 Mg PO DAILY Duoneb 0.5-3(2.5) Mg/3 Ml (Albuterol/Ipratropium) 3 Ml Ampul.neb 3 Ml NEB RTQID Seroquel (Quetiapine Fumarate) 25 Mg Tablet 25 Mg PO TID Amitiza (Lubiprostone) 24 Mcg Capsule 24 Mcg PO BIDWMEALS Lactulose 10 Gm/15 Ml Solution 20 Gm PO QID Meclizine Hcl 25 Mg Tablet 1 Tab PO QID PRN LAST DOSE GIVEN: DATE: TIME: NEXT DOSE DUE: DATE: TIME: Trelegy Ellipta 100-62.5-25 (Fluticasone/Umeclidin/Vilanter) 1 Each Blst.w.dev 1 Each IH DAILY Gabapentin 300 Mg Capsule 300 Mg PO QID Primidone 50 Mg Tablet 125 Mg PO QID Astepro (Azelastine Hcl) 205.5 Mcg/0.137 Ml [place].pump 2 Spr NS BID PRN LAST DOSE GIVEN: DATE: TODAY TIME: AM NEXT DOSE DUE: DATE: TODAY TIME: PM Ventolin Hfa Inhaler (Albuterol Sulfate) 18 Gm Hfa.aer.ad 1 Puff IH PRN QID PRN LAST DOSE GIVEN: NOT GIVEN THIS ADMISSION NEXT DOSE DUE: DATE: TODAY TIME: IF NEEDED Fetzima (Levomilnacipran Hydrochloride) 80 Mg Cap.sa.24h 80 Mg PO DAILY LAST DOSE GIVEN: DATE: TODAY TIME: AM NEXT DOSE DUE: DATE: TOMORR TIME: AM Remeron (Mirtazapine) 45 Mg Tablet 22.5 Mg PO QHS LAST DOSE GIVEN: DATE: TIME: AT BEDTIME NEXT DOSE DUE: DATE: TIME: AT BEDTIME Furosemide 80 Mg Tablet 80 Mg PO DAILY LAST DOSE GIVEN: DATE: TIME: AM NEXT DOSE DUE: DATE: TIME: AM Abilify (Aripiprazole) 5 Mg Tablet 1 Tab PO QHS LAST DOSE GIVEN: DATE: YESTER TIME: AT BEDTIME NEXT DOSE DUE: DATE: TODAY TIME: AT BEDTIME Hydrocodone-Apap 7.5-325 (Hydrocodone Bit/Acetaminophen) 1 Each Tablet 1 Tab PO PRN Q6HRS PRN LAST DOSE GIVEN: NOT GIVEN TODAY NEXT DOSE DUE: DATE: TIME: IF NEEDED TIME: IF AND WHEN NEEDED Klor-Con M20 (Potassium Chloride) 20 Meq Tab.er.prt 20 Meq PO BID LAST DOSE GIVEN: DATE: TIME: AM NEXT DOSE DUE: DATE: TODAY TIME: PM Montelukast Sodium Tablet (Montelukast Sodium) 10 Mg Tablet 10 Mg PO QHS LAST DOSE GIVEN: DATE: TIME: AT BEDTIME NEXT DOSE DUE: DATE: TIME: AT BEDTIME Protonix (Pantoprazole Sodium) 40 Mg Tablet.dr 40 Mg PO DAILYAC LAST DOSE GIVEN: DATE: TIME: BEFORE BREAKFAST NEXT DOSE DUE: DATE: TIME: BEFORE BREAKFAST Dilantin (Phenytoin Sodium Extended) 100 Mg Capsule 400 Mg PO QHS LAST DOSE GIVEN: DATE: TIME: AT BEDTIME NEXT DOSE DUE: DATE: TIME: AT BEDTIME Aspirin 81 Mg Tab.chew 81 Mg PO DAILY LAST DOSE GIVEN: DATE: TIME: AM NEXT DOSE DUE: DATE: TIME: AM Zetia (Ezetimibe) 10 Mg Tablet 10 Mg PO QHS LAST DOSE GIVEN: DATE: TIME: AT BEDTIME NEXT DOSE DUE: DATE: TIME: AT BEDTIME Diazepam 5 Mg Tablet 7.5 Mg PO QHS LAST DOSE GIVEN: DATE: TIME: AT BEDTIME NEXT DOSE DUE: DATE: TIME: AT BEDTIME Diazepam 5 Mg Tablet 2.5 Mg PO BIDAFTMEAL LAST DOSE GIVEN: DATE: TODAY TIME: AM NEXT DOSE DUE: DATE: TODAY TIME: AFTERNOON I have reviewed the current psychotropics carefully including drug interactions. Risk benefit ratio favors no change other than as noted in my dictated progress note. Diagnosis: Problems: (1) Anxiety disorder (2) Anxiety disorder (3) Impulse control disorder (4) Major depressive disorder, recurrent episode (5) Major depressive disorder, recurrent episode (6) Bipolar affective, mixed, severe (7) Mood disorder (8) Depression (9) Suicidal ideation SMILEY BETH MD Jun 26, 2017 20:27
[2017-06-26] MEDS: PHENYTOIN SODIUM EXTENDED 100 MG CAPSULE PO SCH (21:29)
[2017-06-26] MEDS: EZETIMIBE 10 MG TABLET PO SCH (21:30)
[2017-06-26] MEDS: MONTELUKAST 10 MG TABLET. PO SCH (21:30)
[2017-06-26] MEDS: QUEtiapine 50 MG TABLET. PO SCH (21:30)
--- NOTE | 2017-06-26 22:10 | PN ---
DATE: 06/25/2017 PSYCHIATRIC PROGRESS NOTE This is a late entry 06/25/2017 covers elements not covered in my initial note 06/25/2017. SUBJECTIVE: The patient slept 6-3/4 hours previous evening, had a better day, less anxious, gets confused at times. REVIEW OF SYSTEMS: Ambulation impaired with walker. No CV, , pulmonary, eye system symptoms on review. MENTAL STATUS EXAM: Oriented to herself and situation. Speech coherent, obsessed, perseverating about discharge plans. Abstraction fair, computation impaired, language function intact, attention span short. Mood and affect somewhat withdrawn, anxious. LABORATORY DATA: Reviewed. IMPRESSION: Bipolar 1 disorder, mixed with psychotic features; anxiety disorder, unspecified. PLAN: We will reduce the Valium by 0.5 mg for the bedtime dosage starting 06/26/2017. Continue rest unchanged. MAN Rivka BETH MD DR: CHRIS/elisa JOB#: [id number] / [id number]
[2017-06-27] MEDS: IPRATRPIUM/ALBUTEROL 0.5/2.5MG 3 ML NEBU. NEB SCH ×4 (05:34→22:45)
[2017-06-27 06:18] VITALS: BP 118/81
[2017-06-27] MEDS: INSULIN ASPART 300 UNITS/3 ML INSULN.PEN SQ SCH ×4 (07:30→20:13)
[2017-06-27] MEDS: DULoxetine HCL 20 MG CAPSULE.DR PO SCH (07:54)
[2017-06-27] MEDS: FUROSEMIDE 80 MG TABLET PO SCH (07:54)
[2017-06-27] MEDS: DULoxetine HCL 30 MG CAPSULE.DR PO SCH (07:54)
[2017-06-27] MEDS: metFORMIN 500 MG TABLET PO SCH ×2 (07:55→17:57)
[2017-06-27] MEDS: GABAPENTIN 300 MG CAPSULE. PO SCH ×4 (07:55→20:10)
[2017-06-27] MEDS: PRIMIDONE 50 MG TABLET PO SCH ×4 (07:55→20:10)
[2017-06-27] MEDS: ASPIRIN 81 MG TAB.CHEW PO SCH (07:55)
[2017-06-27] MEDS: POTASSIUM CHLORIDE 20 MEQ TABLET.ER. PO SCH ×3 (07:55→20:09)
[2017-06-27] MEDS: PANTOPRAZOLE 40 MG TABLET. PO SCH (07:56)
[2017-06-27] MEDS: CETIRIZINE HCL 10 MG TABLET PO SCH (07:56)
[2017-06-27] MEDS: LACTULOSE 20 GM/30 ML SOLUTION. PO SCH ×4 (07:56→20:09)
[2017-06-27] MEDS: LUBIPROSTONE 24 MCG CAPSULE PO SCH ×2 (07:58→17:58)
[2017-06-27] MEDS: LEVOMILNACIPRAN HYDROCHLORIDE 80 MG PO SCH (07:58)
[2017-06-27] MEDS: Fluticasone/Umeclidin/Vilanter (Trelegy Ellipta 100-62.5-25) IH SCH (07:59)
[2017-06-27] MEDS: diazePAM 5 MG TABLET PO SCH ×3 (08:01→20:10)
[2017-06-27] MEDS: HYDROCORTISONE 1% TOPICAL CREAM 30GM TUBE. TP SCH ×2 (08:01→20:12)
--- NOTE | 2017-06-27 10:30 | NUR ---
Behavior Intervention Response and Plan: BIRP Note: Behavior: Assumed Care of patient, patient located in Patient Room at shift change. Patient exhibited the following behavior Interactive, Disorganized, Withdrawn. Brief assessment on rounds of vital signs, medication needs, lab studies, and pain. Treatment plan problems 1 & 2. Intervention: Patient assessed and the following interventions initiated safety checks 15 Minute Checks Cognitive Assessment , Head to toe Assessment , Medications. Response: After interactions and interventions patient responded in the following manner, Calm , Appropriate ,Compliant. Continue to assess behaviors and condition will continue to monitor throughout the shift as needed. Patient educated on ADL's, and hand hygiene. Plan: Continue to monitor Master Treatment Plan for patient's progress toward short term goals of Decreased Agitation, Decreased Aggression, jail goals to return to previous living setting vs placement. Continue to assess patient for changes in above assessment. Monitor for medication needs, pain, and safety concerns. Hourly rounding performed to ensure safe environment.
[2017-06-27 16:22] VITALS: BP 124/80
[2017-06-27] MEDS: diazePAM 2 MG TABLET PO SCH (18:56)
[2017-06-27] MEDS: PHENYTOIN SODIUM EXTENDED 100 MG CAPSULE PO SCH (20:09)
[2017-06-27] MEDS: QUEtiapine 50 MG TABLET. PO SCH (20:10)
[2017-06-27] MEDS: MONTELUKAST 10 MG TABLET. PO SCH (20:10)
[2017-06-27] MEDS: EZETIMIBE 10 MG TABLET PO SCH (20:10)
--- NOTE | 2017-06-27 20:30 | NUR ---
Behavior Intervention Response and Plan: BIRP Note: Behavior: Assumed Care of patient, patient located in Patient Room at shift change. Patient exhibited the following behavior Calm, Social, Cooperative. Brief assessment on rounds of vital signs, medication needs, lab studies, and pain. Treatment plan problems . Intervention: Patient assessed and the following interventions initiated safety checks 15 Minute Checks Cognitive Assessment , Head to toe Assessment , Medications. Response: After interactions and interventions patient responded in the following manner, Calm , Social ,Interactive. Continue to assess behaviors and condition will continue to monitor throughout the shift as needed. Patient educated on ADL's, and hand hygiene. 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 Continue to assess patient for changes in above assessment. Monitor for medication needs, pain, and safety concerns. Hourly rounding performed to ensure safe environment.
--- NOTE | 2017-06-27 21:12 | PDOC ---
Exam Note: Morales Note: Please also refer to the separate dictated note~for this date of service dictated separately.~Patient seen individually. Discussed the patient with Nursing staff reviewed the chart.~Reviewed interim history and current functioning. Reviewed vital signs,~Labs/ Radiology~and current medications noted below. Continue current treatment with the changes noted in the dictated addendum note Assessment: Vital Signs: Vital Signs Date Time Temp Pulse Resp B/P (MAP) Pulse Ox O2 Delivery O2 Flow Rate FiO2 06/27/17 16:47 97 Room Air 06/27/17 16:22 97.7 98 18 124/80 (95) 06/24/17 06:36 20.0 I&O Intake and Output 06/27/17 07:00 Intake Total 1200 ml Balance 1200 ml Intake Oral 1200 ml # Voids 1 # Bowel Movements 2 Labs: Laboratory Tests Test 06/27/17 07:10 06/27/17 11:55 06/27/17 16:45 06/27/17 19:28 Glucose (Fingerstick) 102 mg/dL (70-99) H 112 mg/dL (70-99) H 102 mg/dL (70-99) H 120 mg/dL (70-99) H Current Medications: Meds: Current Medications Acetaminophen (Tylenol) 650 mg PRN Q6HRS PRN PO PAIN / TEMP; Start 06/12/17 at 16:45 Multi-Ingredient Ointment (Analgesic [place]) 1 tosni PRN QID PRN TP MUSCLE PAIN; Start 06/12/17 at 16:45 Al Hydroxide/Mg Hydroxide (Mylanta Plus Xs) 15 ml PRN AFTMEALHC PRN PO DYSPEPSIA; Start 06/12/17 at 16:45 Magnesium Hydroxide (Milk Of Magnesia) 2,400 mg PRN QHS PRN PO CONSTIPATION; Start 06/12/17 at 16:45 Albuterol Sulfate (Ventolin) 2.5 mg PRN Q6HRS PRN NEB SHORTNESS OF BREATH Last administered on 06/15/17at 06:00; Start 06/12/17 at 16:45 Albuterol Sulfate (Ventolin Hfa) 1 puff PRN QID PRN IH FOR ASTHMA; Start at 16:45; Status UNV Aspirin (Children'S Aspirin) 81 mg DAILY PO Last administered on 4/26/18at 07: 55; Start 06/13/17 at 09:00 Diazepam (Valium) 2.5 mg BIDAFTMEAL PO Last administered on 06/27/17 17:57; Start 06/12/17 at 18:00 Diazepam (Valium) 7.5 mg QHS PO Last administered on 06/14/17 20:24; Start 01/19 at 21:00; Stop 06/15/17 at 19:22; Status DC Duloxetine HCl (Cymbalta) 20 mg DAILY PO Last administered on 06/27/17 07:54; Start 06/13/17 at 09:00 Duloxetine HCl (Cymbalta) 30 mg DAILY PO Last administered on 06/27/17 07:54; Start 06/13/17 at 09:00 EZETIMIBE (Zetia) 10 mg QHS PO Last administered on 06/27/17 20:10; Start 01/19 at 21:00 Furosemide (Lasix) 80 mg DAILY PO Last administered on 06/27/17 07:54; Start 06/13/17 at 09:00 Gabapentin (Neurontin) 300 mg QID PO Last administered on 06/27/17 20:10; Start 06/12/17 at 17:00 Acetaminophen/ Hydrocodone Bitart (Lortab 7.5/325) 1 tab PRN Q6HRS PRN PO PAIN Last administered on 06/24/17 17:47; Start 06/12/17 at 16:45 Albuterol/ Ipratropium (Duoneb) 3 ml RTQID NEB Last administered on 06/27/17 16:47; Start 06/12/17 at 20:00 Lubiprostone (Amitiza) 24 mcg BIDWMEALS PO Last administered on 06/27/17 17:58 ; Start 06/12/17 at 17:00 Metformin HCl (Glucophage) 500 mg BIDWMEALS PO Last administered on 06/27/17 17:57; Start 06/12/17 at 17:00 Montelukast Sodium (Singulair) 10 mg QHS PO Last administered on 06/27/17 20: 10; Start 06/12/17 at 21:00 Pantoprazole Sodium (Protonix) 40 mg DAILYAC PO Last administered on 06/27/17 07:56; Start 06/13/17 at 07:30 Phenytoin Sodium (Dilantin) 400 mg QHS PO Last administered on 06/27/17 20:09 ; Start 06/12/17 at 21:00 Potassium Chloride (Klor-Con) 20 meq BID PO Last administered on 06/14/17 08: 26; Start 06/12/17 at 21:00; Stop 06/14/17 at 16:26; Status DC Primidone (Mysoline) 125 mg QID PO Last administered on 06/27/17 20:10; Start 06/12/17 at 17:00 Quetiapine Fumarate (SEROquel) 25 mg TIDAC PO ; Start 06/13/17 at 07:30; Stop at 07:30; Status DC Azelastine HCl (Astelin) 2 spray PRN BID PRN NS ALLERGIES Last administered on 06/21/17 08:07; Start 06/12/17 at 21:00 Non-Formulary Medication (Fluticasone/ Umeclidin/ Vilanter (Trelegy Ellipta 100- 62.5-25)) 1 each DAILY IH Last administered on 06/27/17 07:59; Start 06/13/17 at 09:00 Lactulose (Lactulose) 20 gm QID PO Last administered on 06/15/17 20:22; Start 06/12/17 at 21:00; Stop 06/16/17 at 18:55; Status DC Non-Formulary Medication (Levomilnacipran Hydrochloride (Fetzima)) 80 mg DAILY PO Last administered on 06/27/17at 07:58; Start 06/13/17 at 09:00 Meclizine HCl (Antivert) 25 mg PRN QID PRN PO DIZZINESS; Start 06/12/17 at 17: 30 Mirtazapine (Remeron) 22.5 mg QHS PO Last administered on 06/12/17at 20:36; Start 06/12/17 at 21:00; Stop 06/13/17 at 10:38; Status DC Insulin Aspart (NovoLOG) 0-7 UNITS QIDACHS SQ Last administered on 06/18/17 12 :01; Start 06/12/17 at 21:00 Dextrose 12.5 gm PRN Q15MIN PRN IV SEE COMMENTS; Start 06/12/17 at 17:15 Quetiapine Fumarate (SEROquel) 50 mg QHS PO Last administered on 06/23/17 19: 48; Start 06/13/17 at 21:00; Stop 06/24/17 at 18:13; Status DC Potassium Chloride (Klor-Con) 20 meq TID PO Last administered on 06/27/17 20: 09; Start 06/14/17 at 21:00 Diclofenac Sodium (Voltaren) 1 tosin PRN QHS PRN TP PAIN Last administered on 20:39; Start 06/14/17 at 21:45 Diazepam (Valium) 5 mg QHS PO Last administered on 06/27/17 20:10; Start 06/15 at 21:00; Stop 06/27/17 at 21:00; Status DC Divalproex Sodium (Depakote Er) 500 mg QHS PO Last administered on 06/17/17 19 :31; Start 06/15/17 at 21:00; Stop 06/18/17 at 19:12; Status DC Diazepam (Valium) 1.5 mg QHS PO Last administered on 06/22/17 20:43; Start at 21:00; Stop 06/23/17 at 16:21; Status DC Lactulose (Lactulose) 20 gm QID PO Last administered on 06/27/17 20:09; Start 06/18/17 at 09:00 Cetirizine HCl (ZyrTEC) 10 mg DAILY PO Last administered on 06/27/17 07:56; Start 06/23/17 at 09:00 Hydrocortisone (Cortaid) 1 tosin BID TP Last administered on 06/27/17 20:12; Start 06/22/17 at 21:00 Diazepam (Valium) 0.5 mg QHS PO Last administered on 06/25/17 22:02; Start at 21:00; Stop 06/26/17 at 20:59; Status DC Quetiapine Fumarate (SEROquel) 75 mg QHS PO Last administered on 06/27/17 20: 10; Start 06/24/17 at 21:00 Oxcarbazepine (Trileptal) 300 mg DAILY PO Last administered on 06/27/17at 07:56 ; Start 06/25/17 at 17:00; Stop 06/27/17 at 12:52; Status DC Diazepam (Valium) 4 mg QHS PO ; Start 06/27/17 at 21:00 Active Scripts Active Metformin Hcl 500 Mg Tablet 500 Mg PO BIDWMEALS 90 Days Albuterol Sulfate Neb Soln (Albuterol Sulfate) 2.5 Mg/3 Ml Vial.neb 2.5 Mg NEB PRN Q6HRS PRN 30 Days Reported Cymbalta (Duloxetine Hcl) 30 Mg Capsule.dr 30 Mg PO DAILY Cymbalta (Duloxetine Hcl) 20 Mg Capsule.dr 20 Mg PO DAILY Duoneb 0.5-3(2.5) Mg/3 Ml (Albuterol/Ipratropium) 3 Ml Ampul.neb 3 Ml NEB RTQID Seroquel (Quetiapine Fumarate) 25 Mg Tablet 25 Mg PO TID Amitiza (Lubiprostone) 24 Mcg Capsule 24 Mcg PO BIDWMEALS Lactulose 10 Gm/15 Ml Solution 20 Gm PO QID Meclizine Hcl 25 Mg Tablet 1 Tab PO QID PRN LAST DOSE GIVEN: DATE: TIME: NEXT DOSE DUE: DATE: TIME: Trelegy Ellipta 100-62.5-25 (Fluticasone/Umeclidin/Vilanter) 1 Each Blst.w.dev 1 Each IH DAILY Gabapentin 300 Mg Capsule 300 Mg PO QID Primidone 50 Mg Tablet 125 Mg PO QID Astepro (Azelastine Hcl) 205.5 Mcg/0.137 Ml [place].pump 2 Spr NS BID PRN LAST DOSE GIVEN: DATE: TODAY TIME: AM NEXT DOSE DUE: DATE: TODAY TIME: PM Ventolin Hfa Inhaler (Albuterol Sulfate) 18 Gm Hfa.aer.ad 1 Puff IH PRN QID PRN LAST DOSE GIVEN: NOT GIVEN THIS ADMISSION NEXT DOSE DUE: DATE: TODAY TIME: IF NEEDED Fetzima (Levomilnacipran Hydrochloride) 80 Mg Cap.sa.24h 80 Mg PO DAILY LAST DOSE GIVEN: DATE: TODAY TIME: AM NEXT DOSE DUE: DATE: TOMORROW TIME: AM Remeron (Mirtazapine) 45 Mg Tablet 22.5 Mg PO QHS LAST DOSE GIVEN: DATE: YESTERDAY TIME: AT BEDTIME NEXT DOSE DUE: DATE: TODAY TIME: AT BEDTIME Furosemide 80 Mg Tablet 80 Mg PO DAILY LAST DOSE GIVEN: DATE: TODAY TIME: AM NEXT DOSE DUE: DATE: TIME: AM Abilify (Aripiprazole) 5 Mg Tablet 1 Tab PO QHS LAST DOSE GIVEN: DATE: YES TIME: AT BEDTIME NEXT DOSE DUE: DATE: TIME: AT BEDTIME Hydrocodone-Apap 7.5-325 (Hydrocodone Bit/Acetaminophen) 1 Each Tablet 1 Tab PO PRN Q6HRS PRN LAST DOSE GIVEN: NOT GIVEN TODAY NEXT DOSE DUE: DATE: TODAY TIME: IF NEEDED TIME: IF AND WHEN NEEDED Klor-Con M20 (Potassium Chloride) 20 Meq Tab.er.prt 20 Meq PO BID LAST DOSE GIVEN: DATE: TIME: AM NEXT DOSE DUE: DATE: TIME: PM Montelukast Sodium Tablet (Montelukast Sodium) 10 Mg Tablet 10 Mg PO QHS LAST DOSE GIVEN: DATE: TIME: AT BEDTIME NEXT DOSE DUE: DATE: TODAY TIME: AT BEDTIME Protonix (Pantoprazole Sodium) 40 Mg Tablet.dr 40 Mg PO DAILYAC LAST DOSE GIVEN: DATE: TODAY TIME: BEFORE BREAKFAST NEXT DOSE DUE: DATE: TIME: BEFORE BREAKFAST Dilantin (Phenytoin Sodium Extended) 100 Mg Capsule 400 Mg PO QHS LAST DOSE GIVEN: DATE: YES TIME: AT BEDTIME NEXT DOSE DUE: DATE: TIME: AT BEDTIME Aspirin 81 Mg Tab.chew 81 Mg PO DAILY LAST DOSE GIVEN: DATE: TIME: AM NEXT DOSE DUE: DATE: TIME: AM Zetia (Ezetimibe) 10 Mg Tablet 10 Mg PO QHS LAST DOSE GIVEN: DATE: YES TIME: AT BEDTIME NEXT DOSE DUE: DATE: TODAY TIME: AT BEDTIME Diazepam 5 Mg Tablet 7.5 Mg PO QHS LAST DOSE GIVEN: DATE: TIME: AT BEDTIME NEXT DOSE DUE: DATE: TODAY TIME: AT BEDTIME Diazepam 5 Mg Tablet 2.5 Mg PO BIDAFTMEAL LAST DOSE GIVEN: DATE: TIME: AM NEXT DOSE DUE: DATE: TODAY TIME: AFTERNOON I have reviewed the current psychotropics carefully including drug interactions. Risk benefit ratio favors no change other than as noted in my dictated progress note. Diagnosis: Problems: (1) Anxiety disorder (2) Anxiety disorder (3) Impulse control disorder (4) Major depressive disorder, recurrent episode (5) Major depressive disorder, recurrent episode (6) Mood disorder (7) Bipolar affective, mixed, severe (8) Generalized weakness (9) Depression (10) Suicidal ideation SMILEY BETH MD Jun 27, 2017 21:12
[2017-06-28] MEDS: IPRATRPIUM/ALBUTEROL 0.5/2.5MG 3 ML NEBU. NEB SCH ×4 (05:22→20:23)
[2017-06-28 05:58] VITALS: BP 143/91
[2017-06-28] MEDS: INSULIN ASPART 300 UNITS/3 ML INSULN.PEN SQ SCH ×4 (07:30→20:11)
[2017-06-28] MEDS: PANTOPRAZOLE 40 MG TABLET. PO SCH (07:52)
[2017-06-28] MEDS: LACTULOSE 20 GM/30 ML SOLUTION. PO SCH ×4 (07:52→20:10)
[2017-06-28] MEDS: ASPIRIN 81 MG TAB.CHEW PO SCH (07:52)
[2017-06-28] MEDS: GABAPENTIN 300 MG CAPSULE. PO SCH ×4 (07:52→20:11)
[2017-06-28] MEDS: CETIRIZINE HCL 10 MG TABLET PO SCH (07:53)
[2017-06-28] MEDS: POTASSIUM CHLORIDE 20 MEQ TABLET.ER. PO SCH ×3 (07:53→20:11)
[2017-06-28] MEDS: DULoxetine HCL 20 MG CAPSULE.DR PO SCH (07:53)
[2017-06-28] MEDS: DULoxetine HCL 30 MG CAPSULE.DR PO SCH (07:53)
[2017-06-28] MEDS: metFORMIN 500 MG TABLET PO SCH ×2 (07:53→17:12)
[2017-06-28] MEDS: Fluticasone/Umeclidin/Vilanter (Trelegy Ellipta 100-62.5-25) IH SCH (07:54)
[2017-06-28] MEDS: LUBIPROSTONE 24 MCG CAPSULE PO SCH ×3 (07:54→20:11)
[2017-06-28] MEDS: LEVOMILNACIPRAN HYDROCHLORIDE 80 MG PO SCH (07:55)
[2017-06-28] MEDS: HYDROCORTISONE 1% TOPICAL CREAM 30GM TUBE. TP SCH ×2 (07:56→20:14)
[2017-06-28] MEDS: FUROSEMIDE 80 MG TABLET PO SCH (07:57)
[2017-06-28] MEDS: diazePAM 5 MG TABLET PO SCH ×2 (07:57→17:13)
[2017-06-28] MEDS: PRIMIDONE 50 MG TABLET PO SCH ×4 (08:00→20:10)
--- NOTE | 2017-06-28 09:50 | NUR ---
Behavior Intervention Response and Plan: BIRP Note: Behavior: Assumed Care of patient, patient located in Patient Room at shift change. Patient exhibited the following behavior Interactive, Disorganized, Withdrawn. Brief assessment on rounds of vital signs, medication needs, lab studies, and pain. Treatment plan problems 1 & 2. Intervention: Patient assessed and the following interventions initiated safety checks 15 Minute Checks Cognitive Assessment , Head to toe Assessment , Medications. Response: After interactions and interventions patient responded in the following manner, Calm , Appropriate ,Compliant. Continue to assess behaviors and condition will continue to monitor throughout the shift as needed. Patient educated on ADL's, and hand hygiene. Plan: Continue to monitor Master Treatment Plan for patient's progress toward short term goals of Decreased Anxiety, Medication Compliance, mcfp goals to return to previous living setting vs placement. Continue to assess patient for changes in above assessment. Monitor for medication needs, pain, and safety concerns. Hourly rounding performed to ensure safe environment.
--- NOTE | 2017-06-28 13:59 | NUR ---
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 You Lindsay [address] [place] [address] PHONE: [phone] FAX: [phone] Follow-up appointment scheduled for Monday, July 03, 2017 @ 11:00 (30 minute appt) Primary Care Follow Up: Dr. Tc Porter [address] [place] [id number] PHONE: [phone] FAX: [phone] Follow-up appointment scheduled for Sunday, July 02, 2017 @ 10:15 Psychologist Follow Up: Dr. Negro Lyn [address] [address] PHONE: [phone] Please call on Saturday to schedule a follow up appointment ( was unable to reach a person in the office prior to discharge to schedule an appointment)
--- NOTE | 2017-06-28 15:23 | NUR ---
SW reviewed the dc summary w/f/u appointments w/pt and discussed a good product picker time for Saturday. Pt stated her could product picker after advent and they could stop by the pharmacy on their way home. SW encouraged pt to have the pharmacy review pt's old medication w/the new medication to ensure they understood the new changes. Currently, pt's sets up pt's weekly pill box for pt. SW then contacted pt's , Tip, and reviewed the dc plan. Tip will plan to bring pt's pill box and current home medications w/him to the pharmacy for assistance w/setting up the pill box w/the new prescriptions to ensure accuracy w/the changes. SW encouraged both Tip and pt to contact nursing or this SW on Saturday if either had any questions regarding f/u appointments or medications.
[2017-06-28 16:27] VITALS: BP 111/67
[2017-06-28] MEDS: QUEtiapine 50 MG TABLET. PO SCH (20:10)
[2017-06-28] MEDS: MONTELUKAST 10 MG TABLET. PO SCH (20:10)
[2017-06-28] MEDS: EZETIMIBE 10 MG TABLET PO SCH (20:10)
[2017-06-28] MEDS: diazePAM 2 MG TABLET PO SCH (20:14)
[2017-06-28] MEDS: PHENYTOIN SODIUM EXTENDED 100 MG CAPSULE PO SCH (20:14)
--- NOTE | 2017-06-28 22:59 | PDOC ---
Exam Note: Morales Note: Please also refer to the separate dictated note~for this date of service dictated separately.~Patient seen individually. Discussed the patient with Nursing staff reviewed the chart.~Reviewed interim history and current functioning. Reviewed vital signs,~Labs/ Radiology~and current medications noted below. Continue current treatment with the changes noted in the dictated addendum note Assessment: Vital Signs: Vital Signs Date Time Temp Pulse Resp B/P (MAP) Pulse Ox O2 Delivery O2 Flow Rate FiO2 06/28/17 20:25 94 Room Air 06/28/17 16:27 98.3 60 18 111/67 (82) 06/24/17 06:36 20.0 I&O Intake and Output 06/28/17 07:00 Intake Total 1800 ml Balance 1800 ml Intake Oral 1800 ml # Bowel Movements 1 Labs: Laboratory Tests Test 06/28/17 07:30 06/28/17 11:21 06/28/17 16:30 06/28/17 19:07 Glucose (Fingerstick) 119 mg/dL (70-99) H 123 mg/dL (70-99) H 163 mg/dL (70-99) H 156 mg/dL (70-99) H Current Medications: Meds: Current Medications Acetaminophen (Tylenol) 650 mg PRN Q6HRS PRN PO PAIN / TEMP; Start 06/12/17 at 16:45 Multi-Ingredient Ointment (Analgesic [place]) 1 tosin PRN QID PRN TP MUSCLE PAIN; Start 06/12/17 at 16:45 Al Hydroxide/Mg Hydroxide (Mylanta Plus Xs) 15 ml PRN AFTMEALHC PRN PO DYSPEPSIA; Start 06/12/17 at 16:45 Magnesium Hydroxide (Milk Of Magnesia) 2,400 mg PRN QHS PRN PO CONSTIPATION; Start 06/12/17 at 16:45 Albuterol Sulfate (Ventolin) 2.5 mg PRN Q6HRS PRN NEB SHORTNESS OF BREATH Last administered on 06/15/17at 06:00; Start 06/12/17 at 16:45 Albuterol Sulfate (Ventolin Hfa) 1 puff PRN QID PRN IH FOR ASTHMA; Start at 16:45; Status UNV Aspirin (Children'S Aspirin) 81 mg DAILY PO Last administered on 06/28/17at 07: 52; Start 06/13/17 at 09:00 Diazepam (Valium) 2.5 mg BIDAFTMEAL PO Last administered on 06/28/17 17:13; Start 06/12/17 at 18:00 Diazepam (Valium) 7.5 mg QHS PO Last administered on 06/14/17 20:24; Start 01/19 at 21:00; Stop 06/15/17 at 19:22; Status DC Duloxetine HCl (Cymbalta) 20 mg DAILY PO Last administered on 06/28/17 07:53; Start 06/13/17 at 09:00 Duloxetine HCl (Cymbalta) 30 mg DAILY PO Last administered on 06/28/17 07:53; Start 06/13/17 at 09:00 EZETIMIBE (Zetia) 10 mg QHS PO Last administered on 06/28/17 20:10; Start 01/19 at 21:00 Furosemide (Lasix) 80 mg DAILY PO Last administered on 06/28/17 07:57; Start 06/13/17 at 09:00 Gabapentin (Neurontin) 300 mg QID PO Last administered on 06/28/17 20:11; Start 06/12/17 at 17:00 Acetaminophen/ Hydrocodone Bitart (Lortab 7.5/325) 1 tab PRN Q6HRS PRN PO PAIN Last administered on 06/24/17 17:47; Start 06/12/17 at 16:45 Albuterol/ Ipratropium (Duoneb) 3 ml RTQID NEB Last administered on 06/28/17 20:23; Start 06/12/17 at 20:00 Lubiprostone (Amitiza) 24 mcg BIDWMEALS PO Last administered on 06/28/17 17:14 ; Start 06/12/17 at 17:00 Metformin HCl (Glucophage) 500 mg BIDWMEALS PO Last administered on 06/28/17 17:12; Start 06/12/17 at 17:00 Montelukast Sodium (Singulair) 10 mg QHS PO Last administered on 06/28/17 20: 10; Start 06/12/17 at 21:00 Pantoprazole Sodium (Protonix) 40 mg DAILYAC PO Last administered on 4/27/18at 07:52; Start 06/13/17 at 07:30 Phenytoin Sodium (Dilantin) 400 mg QHS PO Last administered on 06/28/17 20:14 ; Start 06/12/17 at 21:00 Potassium Chloride (Klor-Con) 20 meq BID PO Last administered on 06/14/17at 08: 26; Start 06/12/17 at 21:00; Stop 06/14/17 at 16:26; Status DC Primidone (Mysoline) 125 mg QID PO Last administered on 06/28/17at 20:10; Start 06/12/17 at 17:00 Quetiapine Fumarate (SEROquel) 25 mg TIDAC PO ; Start 06/13/17 at 07:30; Stop at 07:30; Status DC Azelastine HCl (Astelin) 2 spray PRN BID PRN NS ALLERGIES Last administered on 06/21/17 08:07; Start 06/12/17 at 21:00 Non-Formulary Medication (Fluticasone/ Umeclidin/ Vilanter (Trelegy Ellipta 100- 62.5-25)) 1 each DAILY IH Last administered on 06/28/17 07:54; Start 06/13/17 at 09:00 Lactulose (Lactulose) 20 gm QID PO Last administered on 06/15/17at 20:22; Start 06/12/17 at 21:00; Stop 06/16/17 at 18:55; Status DC Non-Formulary Medication (Levomilnacipran Hydrochloride (Fetzima)) 80 mg DAILY PO Last administered on 06/28/17at 07:55; Start 06/13/17 at 09:00 Meclizine HCl (Antivert) 25 mg PRN QID PRN PO DIZZINESS; Start 06/12/17 at 17: 30 Mirtazapine (Remeron) 22.5 mg QHS PO Last administered on 06/12/17at 20:36; Start 06/12/17 at 21:00; Stop 06/13/17 at 10:38; Status DC Insulin Aspart (NovoLOG) 0-7 UNITS QIDACHS SQ Last administered on 06/28/17 17 :16; Start 06/12/17 at 21:00 Dextrose 12.5 gm PRN Q15MIN PRN IV SEE COMMENTS; Start 06/12/17 at 17:15 Quetiapine Fumarate (SEROquel) 50 mg QHS PO Last administered on 06/23/17 19: 48; Start 06/13/17 at 21:00; Stop 06/24/17 at 18:13; Status DC Potassium Chloride (Klor-Con) 20 meq TID PO Last administered on 06/28/17 20: 11; Start 06/14/17 at 21:00 Diclofenac Sodium (Voltaren) 1 tosin PRN QHS PRN TP PAIN Last administered on 20:39; Start 06/14/17 at 21:45 Diazepam (Valium) 5 mg QHS PO Last administered on 06/27/17 20:10; Start 06/15 at 21:00; Stop 06/27/17 at 21:00; Status DC Divalproex Sodium (Depakote Er) 500 mg QHS PO Last administered on 06/17/17 19 :31; Start 06/15/17 at 21:00; Stop 06/18/17 at 19:12; Status DC Diazepam (Valium) 1.5 mg QHS PO Last administered on 06/22/17 20:43; Start at 21:00; Stop 06/23/17 at 16:21; Status DC Lactulose (Lactulose) 20 gm QID PO Last administered on 06/28/17 20:10; Start 06/18/17 at 09:00 Cetirizine HCl (ZyrTEC) 10 mg DAILY PO Last administered on 06/28/17 07:53; Start 06/23/17 at 09:00 Hydrocortisone (Cortaid) 1 tosin BID TP Last administered on 06/28/17 20:14; Start 06/22/17 at 21:00 Diazepam (Valium) 0.5 mg QHS PO Last administered on 06/25/17 22:02; Start at 21:00; Stop 06/26/17 at 20:59; Status DC Quetiapine Fumarate (SEROquel) 75 mg QHS PO Last administered on 06/28/17 20: 10; Start 06/24/17 at 21:00 Oxcarbazepine (Trileptal) 300 mg DAILY PO Last administered on 4/26/18at 07:56 ; Start 06/25/17 at 17:00; Stop 06/27/17 at 12:52; Status DC Diazepam (Valium) 4 mg QHS PO Last administered on 06/28/17at 20:14; Start 06/27 at 21:00 Active Scripts Active Metformin Hcl 500 Mg Tablet 500 Mg PO BIDWMEALS 90 Days Albuterol Sulfate Neb Soln (Albuterol Sulfate) 2.5 Mg/3 Ml Vial.neb 2.5 Mg NEB PRN Q6HRS PRN 30 Days Reported Cymbalta (Duloxetine Hcl) 30 Mg Capsule.dr 30 Mg PO DAILY Cymbalta (Duloxetine Hcl) 20 Mg Capsule.dr 20 Mg PO DAILY Duoneb 0.5-3(2.5) Mg/3 Ml (Albuterol/Ipratropium) 3 Ml Ampul.neb 3 Ml NEB RTQID Seroquel (Quetiapine Fumarate) 25 Mg Tablet 25 Mg PO TID Amitiza (Lubiprostone) 24 Mcg Capsule 24 Mcg PO BIDWMEALS Lactulose 10 Gm/15 Ml Solution 20 Gm PO QID Meclizine Hcl 25 Mg Tablet 1 Tab PO QID PRN LAST DOSE GIVEN: DATE: TIME: NEXT DOSE DUE: DATE: TIME: Trelegy Ellipta 100-62.5-25 (Fluticasone/Umeclidin/Vilanter) 1 Each Blst.w.dev 1 Each IH DAILY Gabapentin 300 Mg Capsule 300 Mg PO QID Primidone 50 Mg Tablet 125 Mg PO QID Astepro (Azelastine Hcl) 205.5 Mcg/0.137 Ml [place].pump 2 Spr NS BID PRN LAST DOSE GIVEN: DATE: TODAY TIME: AM NEXT DOSE DUE: DATE: TODAY TIME: PM Ventolin Hfa Inhaler (Albuterol Sulfate) 18 Gm Hfa.aer.ad 1 Puff IH PRN QID PRN LAST DOSE GIVEN: NOT GIVEN THIS ADMISSION NEXT DOSE DUE: DATE: TODAY TIME: IF NEEDED Fetzima (Levomilnacipran Hydrochloride) 80 Mg Cap.sa.24h 80 Mg PO DAILY LAST DOSE GIVEN: DATE: TODAY TIME: AM NEXT DOSE DUE: DATE: TOMORROW TIME: AM Remeron (Mirtazapine) 45 Mg Tablet 22.5 Mg PO QHS LAST DOSE GIVEN: DATE: YES TIME: AT BEDTIME NEXT DOSE DUE: DATE: TODAY TIME: AT BEDTIME Furosemide 80 Mg Tablet 80 Mg PO DAILY LAST DOSE GIVEN: DATE: TODAY TIME: AM NEXT DOSE DUE: DATE: TIME: AM Abilify (Aripiprazole) 5 Mg Tablet 1 Tab PO QHS LAST DOSE GIVEN: DATE: YES TIME: AT BEDTIME NEXT DOSE DUE: DATE: TIME: AT BEDTIME Hydrocodone-Apap 7.5-325 (Hydrocodone Bit/Acetaminophen) 1 Each Tablet 1 Tab PO PRN Q6HRS PRN LAST DOSE GIVEN: NOT GIVEN TODAY NEXT DOSE DUE: DATE: TODAY TIME: IF NEEDED TIME: IF AND WHEN NEEDED Klor-Con M20 (Potassium Chloride) 20 Meq Tab.er.prt 20 Meq PO BID LAST DOSE GIVEN: DATE: TIME: AM NEXT DOSE DUE: DATE: TODAY TIME: PM Montelukast Sodium Tablet (Montelukast Sodium) 10 Mg Tablet 10 Mg PO QHS LAST DOSE GIVEN: DATE: YES TIME: AT BEDTIME NEXT DOSE DUE: DATE: TODAY TIME: AT BEDTIME Protonix (Pantoprazole Sodium) 40 Mg Tablet.dr 40 Mg PO DAILYAC LAST DOSE GIVEN: DATE: TODAY TIME: BEFORE BREAKFAST NEXT DOSE DUE: DATE: TOMORR TIME: BEFORE BREAKFAST Dilantin (Phenytoin Sodium Extended) 100 Mg Capsule 400 Mg PO QHS LAST DOSE GIVEN: DATE: TIME: AT BEDTIME NEXT DOSE DUE: DATE: TIME: AT BEDTIME Aspirin 81 Mg Tab.chew 81 Mg PO DAILY LAST DOSE GIVEN: DATE: TIME: AM NEXT DOSE DUE: DATE: TIME: AM Zetia (Ezetimibe) 10 Mg Tablet 10 Mg PO QHS LAST DOSE GIVEN: DATE: YES TIME: AT BEDTIME NEXT DOSE DUE: DATE: TODAY TIME: AT BEDTIME Diazepam 5 Mg Tablet 7.5 Mg PO QHS LAST DOSE GIVEN: DATE: TIME: AT BEDTIME NEXT DOSE DUE: DATE: TODAY TIME: AT BEDTIME Diazepam 5 Mg Tablet 2.5 Mg PO BIDAFTMEAL LAST DOSE GIVEN: DATE: TIME: AM NEXT DOSE DUE: DATE: TODAY TIME: AFTERNOON I have reviewed the current psychotropics carefully including drug interactions. Risk benefit ratio favors no change other than as noted in my dictated progress note. Diagnosis: Problems: (1) Anxiety disorder (2) Anxiety disorder (3) Impulse control disorder (4) Major depressive disorder, recurrent episode (5) Major depressive disorder, recurrent episode (6) Bipolar affective, mixed, severe (7) Mood disorder (8) Generalized weakness (9) Depression (10) Suicidal ideation SMILEY BETH MD Jun 28, 2017 22:59
--- NOTE | 2017-06-29 03:27 | NUR ---
Behavior Intervention Response and Plan: BIRP Note: Behavior: Assumed Care of patient, patient located in Hallway at shift change. Patient exhibited the following behavior Calm, Compliant, Cooperative. Brief assessment on rounds of vital signs, medication needs, lab studies, and pain. Treatment plan problems 1-2. Intervention: Patient assessed and the following interventions initiated safety checks 15 Minute Checks Cognitive Assessment , Head to toe Assessment , Medications. Response: After interactions and interventions patient responded in the following manner, Calm , Compliant ,Cooperative. Continue to assess behaviors and condition will continue to monitor throughout the shift as needed. Patient educated on ADL's, and hand hygiene. Plan: Continue to monitor Master Treatment Plan for patient's progress toward short term goals of Decreased Agitation, Medication Compliance, special agent goals to return to previous living setting vs placement. Continue to assess patient for changes in above assessment. Monitor for medication needs, pain, and safety concerns. Hourly rounding performed to ensure safe environment.
[2017-06-29 06:33] VITALS: BP 126/79
[2017-06-29] MEDS: FUROSEMIDE 80 MG TABLET PO SCH (07:55)
[2017-06-29] MEDS: DULoxetine HCL 20 MG CAPSULE.DR PO SCH (07:55)
[2017-06-29] MEDS: DULoxetine HCL 30 MG CAPSULE.DR PO SCH (07:55)
[2017-06-29] MEDS: metFORMIN 500 MG TABLET PO SCH ×2 (07:56→17:17)
[2017-06-29] MEDS: POTASSIUM CHLORIDE 20 MEQ TABLET.ER. PO SCH ×3 (07:56→20:47)
[2017-06-29] MEDS: LUBIPROSTONE 24 MCG CAPSULE PO SCH ×2 (07:56→17:17)
[2017-06-29] MEDS: ASPIRIN 81 MG TAB.CHEW PO SCH (07:56)
[2017-06-29] MEDS: PRIMIDONE 50 MG TABLET PO SCH ×4 (07:56→20:48)
[2017-06-29] MEDS: CETIRIZINE HCL 10 MG TABLET PO SCH (07:56)
[2017-06-29] MEDS: LACTULOSE 20 GM/30 ML SOLUTION. PO SCH ×4 (07:57→20:47)
[2017-06-29] MEDS: PANTOPRAZOLE 40 MG TABLET. PO SCH (07:57)
[2017-06-29] MEDS: GABAPENTIN 300 MG CAPSULE. PO SCH ×4 (07:57→20:47)
[2017-06-29] MEDS: INSULIN ASPART 300 UNITS/3 ML INSULN.PEN SQ SCH ×4 (07:59→20:49)
[2017-06-29] MEDS: diazePAM 5 MG TABLET PO SCH ×2 (08:00→17:17)
[2017-06-29] MEDS: IPRATRPIUM/ALBUTEROL 0.5/2.5MG 3 ML NEBU. NEB SCH ×4 (08:00→20:26)
[2017-06-29] MEDS: Fluticasone/Umeclidin/Vilanter (Trelegy Ellipta 100-62.5-25) IH SCH (08:00)
[2017-06-29] MEDS: LEVOMILNACIPRAN HYDROCHLORIDE 80 MG PO SCH (08:01)
[2017-06-29] MEDS: HYDROCORTISONE 1% TOPICAL CREAM 30GM TUBE. TP SCH ×2 (09:16→21:00)
--- NOTE | 2017-06-29 11:48 | PN ---
DATE: 06/26/2017 PSYCHIATRIC PROGRESS NOTE This is a late entry 06/26/2017, covers elements not covered in my initial note 06/26/2017. SUBJECTIVE: I met with the patient the evening of 06/26/2017. The patient's ammonia is elevated. I will defer to Dr. Ervin. We will have a pharmacy consult to clarify if any of her current medications could be contributing to the resurgent ammonia level. Apparently, the patient has a followup appointment at as well. REVIEW OF SYSTEMS: No CV, , pulmonary, eye system symptoms on review. She seems less anxious. MENTAL STATUS EXAM: Oriented to herself and situation. Speech coherent, has some mild slurring of speech. Abstraction fair, computation impaired, language function intact, attention span short. Mood and affect somewhat labile at times, but improved. LABORATORY DATA: Reviewed. IMPRESSION: Probable bipolar 1 disorder, mixed with psychotic features; anxiety disorder, unspecified. PLAN: Continue current psychotropics, Valium is being tapered. Pharmacy consult is noted. Adjust further as clinically indicated. MAN Rivka BETH MD DR: CHRIS/elisa JOB#: [id number] / [id number]
[2017-06-29 17:29] VITALS: BP 128/79
[2017-06-29] MEDS: QUEtiapine 50 MG TABLET. PO SCH (20:47)
[2017-06-29] MEDS: MONTELUKAST 10 MG TABLET. PO SCH (20:47)
[2017-06-29] MEDS: PHENYTOIN SODIUM EXTENDED 100 MG CAPSULE PO SCH (20:47)
[2017-06-29] MEDS: EZETIMIBE 10 MG TABLET PO SCH (20:47)
[2017-06-29] MEDS: diazePAM 2 MG TABLET PO SCH (20:48)
--- NOTE | 2017-06-29 21:41 | PN ---
DATE: 06/27/2017 This late entry 06/27/2017 covers elements not covered in my initial note 06/27/2017. I met with the patient individually in the evening staffed at a lengthy treatment team meeting morning of 06/27/2017 with the patient's attending together with the patient. Discussed her history at length. Reviewed her current medication changes, reinstituting progress, discharge plans. Medical followup at post-discharge and with Dr. Porter. Pharmacy consult indicates that the Valium could be contributing to her raised ammonia level. We are tapering this. Trileptal could contribute as well and we will go ahead and stop it. Her primidone and phenytoin could additionally create issues, but these I will have to defer to Dr. Ervin or to Dr. Porter as an outpatient, but in the meantime, we are certainly reducing her Valium and we will stop the Trileptal as noted. Sleeping about 7-1/2 hours average. No CV, , pulmonary, eye system symptoms on review. Gait a little unsteady with walker. MENTAL STATUS EXAM: Oriented to herself and situation. Speech has some latency, coherent, abstraction fair, computation impaired, language function intact, attention span short. Mood and affect still somewhat anxious, labile. LABORATORY DATA: Reviewed. IMPRESSION: Bipolar 1 disorder, mixed with history of psychotic features. Rest unchanged. PLAN: As noted above. Rest unchanged per initial note. MAN Rivka BETH MD DR: CHRIS/elisa JOB#: [id number] / [id number]
--- NOTE | 2017-06-29 22:29 | PDOC ---
Exam Note: Morales Note: Please also refer to the separate dictated note~for this date of service dictated separately.~Patient seen individually. Discussed the patient with Nursing staff reviewed the chart.~Reviewed interim history and current functioning. Reviewed vital signs,~Labs/ Radiology~and current medications noted below. Continue current treatment with the changes noted in the dictated addendum note Assessment: Vital Signs: Vital Signs Date Time Temp Pulse Resp B/P (MAP) Pulse Ox O2 Delivery O2 Flow Rate FiO2 06/29/17 20:27 95 Room Air 06/29/17 17:29 98.2 95 20 128/79 (95) 06/24/17 06:36 20.0 I&O Intake and Output 06/29/17 07:00 Intake Total 1920 ml Balance 1920 ml Intake Oral 1920 ml # Bowel Movements 1 Labs: Laboratory Tests Test 06/29/17 07:26 06/29/17 08:09 06/29/17 11:56 06/29/17 16:20 Glucose (Fingerstick) 179 mg/dL (70-99) H 94 mg/dL (70-99) 109 mg/dL (70-99) H Ammonia 183 mcmol/L (11-34) H Current Medications: Meds: Current Medications Acetaminophen (Tylenol) 650 mg PRN Q6HRS PRN PO PAIN / TEMP; Start 06/12/17 at 16:45 Multi-Ingredient Ointment (Analgesic [place]) 1 tosin PRN QID PRN TP MUSCLE PAIN; Start 06/12/17 at 16:45 Al Hydroxide/Mg Hydroxide (Mylanta Plus Xs) 15 ml PRN AFTMEALHC PRN PO DYSPEPSIA; Start 06/12/17 at 16:45 Magnesium Hydroxide (Milk Of Magnesia) 2,400 mg PRN QHS PRN PO CONSTIPATION; Start 06/12/17 at 16:45 Albuterol Sulfate (Ventolin) 2.5 mg PRN Q6HRS PRN NEB SHORTNESS OF BREATH Last administered on 06/15/17at 06:00; Start 06/12/17 at 16:45 Albuterol Sulfate (Ventolin Hfa) 1 puff PRN QID PRN IH FOR ASTHMA; Start at 16:45; Status UNV Aspirin (Children'S Aspirin) 81 mg DAILY PO Last administered on 4/28/18at 07: 56; Start 06/13/17 at 09:00 Diazepam (Valium) 2.5 mg BIDAFTMEAL PO Last administered on 06/29/17 17:17; Start 06/12/17 at 18:00 Diazepam (Valium) 7.5 mg QHS PO Last administered on 06/14/17 20:24; Start 01/19 at 21:00; Stop 06/15/17 at 19:22; Status DC Duloxetine HCl (Cymbalta) 20 mg DAILY PO Last administered on 06/29/17 07:55; Start 06/13/17 at 09:00 Duloxetine HCl (Cymbalta) 30 mg DAILY PO Last administered on 06/29/17 07:55; Start 06/13/17 at 09:00 EZETIMIBE (Zetia) 10 mg QHS PO Last administered on 06/29/17 20:47; Start 01/19 at 21:00 Furosemide (Lasix) 80 mg DAILY PO Last administered on 06/29/17 07:55; Start 06/13/17 at 09:00 Gabapentin (Neurontin) 300 mg QID PO Last administered on 06/29/17 20:47; Start 06/12/17 at 17:00 Acetaminophen/ Hydrocodone Bitart (Lortab 7.5/325) 1 tab PRN Q6HRS PRN PO PAIN Last administered on 06/24/17 17:47; Start 06/12/17 at 16:45 Albuterol/ Ipratropium (Duoneb) 3 ml RTQID NEB Last administered on 06/29/17 20:26; Start 06/12/17 at 20:00 Lubiprostone (Amitiza) 24 mcg BIDWMEALS PO Last administered on 06/29/17 17:17 ; Start 06/12/17 at 17:00 Metformin HCl (Glucophage) 500 mg BIDWMEALS PO Last administered on 06/29/17 17:17; Start 06/12/17 at 17:00 Montelukast Sodium (Singulair) 10 mg QHS PO Last administered on 06/29/17 20: 47; Start 06/12/17 at 21:00 Pantoprazole Sodium (Protonix) 40 mg DAILYAC PO Last administered on 06/29/17 07:57; Start 06/13/17 at 07:30 Phenytoin Sodium (Dilantin) 400 mg QHS PO Last administered on 06/29/17 20:47 ; Start 06/12/17 at 21:00 Potassium Chloride (Klor-Con) 20 meq BID PO Last administered on 06/14/17 08: 26; Start 06/12/17 at 21:00; Stop 06/14/17 at 16:26; Status DC Primidone (Mysoline) 125 mg QID PO Last administered on 06/29/17 20:48; Start 06/12/17 at 17:00 Quetiapine Fumarate (SEROquel) 25 mg TIDAC PO ; Start 06/13/17 at 07:30; Stop at 07:30; Status DC Azelastine HCl (Astelin) 2 spray PRN BID PRN NS ALLERGIES Last administered on 06/21/17 08:07; Start 06/12/17 at 21:00 Non-Formulary Medication (Fluticasone/ Umeclidin/ Vilanter (Trelegy Ellipta 100- 62.5-25)) 1 each DAILY IH Last administered on 06/29/17 08:00; Start 06/13/17 at 09:00 Lactulose (Lactulose) 20 gm QID PO Last administered on 06/15/17 20:22; Start 06/12/17 at 21:00; Stop 06/16/17 at 18:55; Status DC Non-Formulary Medication (Levomilnacipran Hydrochloride (Fetzima)) 80 mg DAILY PO Last administered on 06/29/17 08:01; Start 06/13/17 at 09:00 Meclizine HCl (Antivert) 25 mg PRN QID PRN PO DIZZINESS; Start 06/12/17 at 17: 30 Mirtazapine (Remeron) 22.5 mg QHS PO Last administered on 06/12/17 20:36; Start 06/12/17 at 21:00; Stop 06/13/17 at 10:38; Status DC Insulin Aspart (NovoLOG) 0-7 UNITS QIDACHS SQ Last administered on 06/29/17 07 :59; Start 06/12/17 at 21:00 Dextrose 12.5 gm PRN Q15MIN PRN IV SEE COMMENTS; Start 06/12/17 at 17:15 Quetiapine Fumarate (SEROquel) 50 mg QHS PO Last administered on 06/23/17 19: 48; Start 06/13/17 at 21:00; Stop 06/24/17 at 18:13; Status DC Potassium Chloride (Klor-Con) 20 meq TID PO Last administered on 06/29/17 20: 47; Start 06/14/17 at 21:00 Diclofenac Sodium (Voltaren) 1 tosin PRN QHS PRN TP PAIN Last administered on 20:39; Start 06/14/17 at 21:45 Diazepam (Valium) 5 mg QHS PO Last administered on 06/27/17 20:10; Start 06/15 at 21:00; Stop 06/27/17 at 21:00; Status DC Divalproex Sodium (Depakote Er) 500 mg QHS PO Last administered on 06/17/17 19 :31; Start 06/15/17 at 21:00; Stop 06/18/17 at 19:12; Status DC Diazepam (Valium) 1.5 mg QHS PO Last administered on 06/22/17 20:43; Start at 21:00; Stop 06/23/17 at 16:21; Status DC Lactulose (Lactulose) 20 gm QID PO Last administered on 06/29/17 20:47; Start 06/18/17 at 09:00 Cetirizine HCl (ZyrTEC) 10 mg DAILY PO Last administered on 06/29/17 07:56; Start 06/23/17 at 09:00 Hydrocortisone (Cortaid) 1 tosin BID TP Last administered on 06/29/17 09:16; Start 06/22/17 at 21:00 Diazepam (Valium) 0.5 mg QHS PO Last administered on 06/25/17 22:02; Start at 21:00; Stop 06/26/17 at 20:59; Status DC Quetiapine Fumarate (SEROquel) 75 mg QHS PO Last administered on 06/29/17 20: 47; Start 06/24/17 at 21:00 Oxcarbazepine (Trileptal) 300 mg DAILY PO Last administered on 06/27/17at 07:56 ; Start 06/25/17 at 17:00; Stop 06/27/17 at 12:52; Status DC Diazepam (Valium) 4 mg QHS PO Last administered on 06/29/17at 20:48; Start 06/27 at 21:00 Active Scripts Active Metformin Hcl 500 Mg Tablet 500 Mg PO BIDWMEALS 90 Days Albuterol Sulfate Neb Soln (Albuterol Sulfate) 2.5 Mg/3 Ml Vial.neb 2.5 Mg NEB PRN Q6HRS PRN 30 Days Reported Cymbalta (Duloxetine Hcl) 30 Mg Capsule.dr 30 Mg PO DAILY Cymbalta (Duloxetine Hcl) 20 Mg Capsule.dr 20 Mg PO DAILY Duoneb 0.5-3(2.5) Mg/3 Ml (Albuterol/Ipratropium) 3 Ml Ampul.neb 3 Ml NEB RTQID Seroquel (Quetiapine Fumarate) 25 Mg Tablet 25 Mg PO TID Amitiza (Lubiprostone) 24 Mcg Capsule 24 Mcg PO BIDWMEALS Lactulose 10 Gm/15 Ml Solution 20 Gm PO QID Meclizine Hcl 25 Mg Tablet 1 Tab PO QID PRN LAST DOSE GIVEN: DATE: TIME: NEXT DOSE DUE: DATE: TIME: [place] Ellipta 100-62.5-25 (Fluticasone/Umeclidin/Vilanter) 1 Each Blst.w.dev 1 Each IH DAILY Gabapentin 300 Mg Capsule 300 Mg PO QID Primidone 50 Mg Tablet 125 Mg PO QID Astepro (Azelastine Hcl) 205.5 Mcg/0.137 Ml [place].pump 2 Spr NS BID PRN LAST DOSE GIVEN: DATE: TODAY TIME: AM NEXT DOSE DUE: DATE: TODAY TIME: PM Ventolin Hfa Inhaler (Albuterol Sulfate) 18 Gm Hfa.aer.ad 1 Puff IH PRN QID PRN LAST DOSE GIVEN: NOT GIVEN THIS ADMISSION NEXT DOSE DUE: DATE: TODAY TIME: IF NEEDED Fetzima (Levomilnacipran Hydrochloride) 80 Mg Cap.sa.24h 80 Mg PO DAILY LAST DOSE GIVEN: DATE: TODAY TIME: AM NEXT DOSE DUE: DATE: TOMORROW TIME: AM Remeron (Mirtazapine) 45 Mg Tablet 22.5 Mg PO QHS LAST DOSE GIVEN: DATE: YES TIME: AT BEDTIME NEXT DOSE DUE: DATE: TODAY TIME: AT BEDTIME Furosemide 80 Mg Tablet 80 Mg PO DAILY LAST DOSE GIVEN: DATE: TODAY TIME: AM NEXT DOSE DUE: DATE: TIME: AM Abilify (Aripiprazole) 5 Mg Tablet 1 Tab PO QHS LAST DOSE GIVEN: DATE: YES TIME: AT BEDTIME NEXT DOSE DUE: DATE: TODAY TIME: AT BEDTIME Hydrocodone-Apap 7.5-325 (Hydrocodone Bit/Acetaminophen) 1 Each Tablet 1 Tab PO PRN Q6HRS PRN LAST DOSE GIVEN: NOT GIVEN TODAY NEXT DOSE DUE: DATE: TODAY TIME: IF NEEDED TIME: IF AND WHEN NEEDED Klor-Con M20 (Potassium Chloride) 20 Meq Tab.er.prt 20 Meq PO BID LAST DOSE GIVEN: DATE: TIME: AM NEXT DOSE DUE: DATE: TIME: PM Montelukast Sodium Tablet (Montelukast Sodium) 10 Mg Tablet 10 Mg PO QHS LAST DOSE GIVEN: DATE: YES TIME: AT BEDTIME NEXT DOSE DUE: DATE: TODAY TIME: AT BEDTIME Protonix (Pantoprazole Sodium) 40 Mg Tablet.dr 40 Mg PO DAILYAC LAST DOSE GIVEN: DATE: TIME: BEFORE BREAKFAST NEXT DOSE DUE: DATE: ORR TIME: BEFORE BREAKFAST Dilantin (Phenytoin Sodium Extended) 100 Mg Capsule 400 Mg PO QHS LAST DOSE GIVEN: DATE: TIME: AT BEDTIME NEXT DOSE DUE: DATE: TIME: AT BEDTIME Aspirin 81 Mg Tab.chew 81 Mg PO DAILY LAST DOSE GIVEN: DATE: TIME: AM NEXT DOSE DUE: DATE: TIME: AM Zetia (Ezetimibe) 10 Mg Tablet 10 Mg PO QHS LAST DOSE GIVEN: DATE: YES TIME: AT BEDTIME NEXT DOSE DUE: DATE: TIME: AT BEDTIME Diazepam 5 Mg Tablet 7.5 Mg PO QHS LAST DOSE GIVEN: DATE: TIME: AT BEDTIME NEXT DOSE DUE: DATE: TIME: AT BEDTIME Diazepam 5 Mg Tablet 2.5 Mg PO BIDAFTMEAL LAST DOSE GIVEN: DATE: TIME: AM NEXT DOSE DUE: DATE: TODAY TIME: AFTERNOON I have reviewed the current psychotropics carefully including drug interactions. Risk benefit ratio favors no change other than as noted in my dictated progress note. Diagnosis: Problems: (1) Anxiety disorder (2) Anxiety disorder (3) Impulse control disorder (4) Major depressive disorder, recurrent episode (5) Major depressive disorder, recurrent episode (6) Bipolar affective, mixed, severe (7) Mood disorder (8) Depression (9) Suicidal ideation SMILEY BETH MD Jun 29, 2017 22:29
--- NOTE | 2017-06-30 00:58 | NUR ---
Behavior Intervention Response and Plan: BIRP Note: Behavior: Assumed Care of patient, patient located in Hallway at shift change. Patient exhibited the following behavior Calm, Compliant, Cooperative. Brief assessment on rounds of vital signs, medication needs, lab studies, and pain. Treatment plan problems 1-2. Intervention: Patient assessed and the following interventions initiated safety checks 15 Minute Checks Cognitive Assessment , Head to toe Assessment , Medications. Response: After interactions and interventions patient responded in the following manner, Calm , Compliant ,Cooperative. Continue to assess behaviors and condition will continue to monitor throughout the shift as needed. Patient educated on ADL's, and hand hygiene. 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 Continue to assess patient for changes in above assessment. Monitor for medication needs, pain, and safety concerns. Hourly rounding performed to ensure safe environment.
[2017-06-30] MEDS ORDERED: METH29OI TP (02:32)
[2017-06-30] MEDS ORDERED: ACET325T9 PO (03:00)
[2017-06-30] MEDS ORDERED: DIAZ2TAB PO (03:18)
[2017-06-30] MEDS ORDERED: HYDR453. TP (03:34)
[2017-06-30] MEDS ORDERED: INSU100I17 SQ (03:37)
[2017-06-30] MEDS: IPRATRPIUM/ALBUTEROL 0.5/2.5MG 3 ML NEBU. NEB SCH (04:16)
[2017-06-30 06:22] VITALS: BP 140/94
[2017-06-30] MEDS: INSULIN ASPART 300 UNITS/3 ML INSULN.PEN SQ SCH (07:30)
[2017-06-30] MEDS: GABAPENTIN 300 MG CAPSULE. PO SCH (08:51)
[2017-06-30] MEDS: ASPIRIN 81 MG TAB.CHEW PO SCH (08:51)
[2017-06-30] MEDS: DULoxetine HCL 20 MG CAPSULE.DR PO SCH (08:51)
[2017-06-30] MEDS: CETIRIZINE HCL 10 MG TABLET PO SCH (08:51)
[2017-06-30] MEDS: LACTULOSE 20 GM/30 ML SOLUTION. PO SCH (08:51)
[2017-06-30] MEDS: POTASSIUM CHLORIDE 20 MEQ TABLET.ER. PO SCH (08:51)
[2017-06-30] MEDS: DULoxetine HCL 30 MG CAPSULE.DR PO SCH (08:51)
[2017-06-30] MEDS: PANTOPRAZOLE 40 MG TABLET. PO SCH (08:51)
[2017-06-30] MEDS: Fluticasone/Umeclidin/Vilanter (Trelegy Ellipta 100-62.5-25) IH SCH (08:52)
[2017-06-30] MEDS: metFORMIN 500 MG TABLET PO SCH (08:52)
[2017-06-30] MEDS: FUROSEMIDE 80 MG TABLET PO SCH (08:52)
[2017-06-30] MEDS: LEVOMILNACIPRAN HYDROCHLORIDE 80 MG PO SCH (08:53)
[2017-06-30] MEDS: LUBIPROSTONE 24 MCG CAPSULE PO SCH (08:54)
[2017-06-30] MEDS: HYDROCORTISONE 1% TOPICAL CREAM 30GM TUBE. TP SCH (08:55)
[2017-06-30] MEDS: PRIMIDONE 50 MG TABLET PO SCH (08:57)
[2017-06-30] MEDS: diazePAM 5 MG TABLET PO SCH (08:58)
--- NOTE | 2017-06-30 09:30 | NUR ---
Behavior Intervention Response and Plan: BIRP Note: Behavior: Assumed Care of patient, patient located in Day Room at shift change. Patient exhibited the following behavior Calm, Interactive, Compliant. Brief assessment on rounds of vital signs, medication needs, lab studies, and pain. Treatment plan problems 1-2. Intervention: Patient assessed and the following interventions initiated safety checks 15 Minute Checks Cognitive Assessment , Head to toe Assessment , Medications. Response: After interactions and interventions patient responded in the following manner, Calm , Interactive ,Cooperative. Continue to assess behaviors and condition will continue to monitor throughout the shift as needed. Patient educated on ADL's, and hand hygiene. Plan: Continue to monitor Master Treatment Plan for patient's progress toward short term goals of Improved Mood, No harm To self/ others, senior care goals to return to previous living setting vs placement. Continue to assess patient for changes in above assessment. Monitor for medication needs, pain, and safety concerns. Hourly rounding performed to ensure safe environment.
--- NOTE | 2017-06-30 11:07 | NUR ---
Transition Record was faxed to follow-up provider with the following elements: Reason for admission, procedures, tests, principal diagnosis, pending studies, patient instructions, 24/09 contact information for unit, phone number to obtain pending test results, plan for follow-up care, physician follow-up, advanced directive information, and medication list with dose, duration and instructions. This information was included in the following documents: History and physical, lab results, study results, progress notes, social work planning form, DC instruction form, patient visit summary, and medication reconciliation form. Date & time record faxed: 06/30/17 @ 1100 Record faxed to: Dr. Tc Porter and Dr. You Lindsay Record discussed with/ report given to: Pt discharged home with spouse. Medication and discharge instructions reviewed with pt and spouse.
--- NOTE | 2017-06-30 18:18 | PDOC ---
Exam Note: Morales Note: Please also refer to the separate dictated note~for this date of service dictated separately.~Patient seen individually. Discussed the patient with Nursing staff reviewed the chart.~Reviewed interim history and current functioning. Reviewed vital signs,~Labs/ Radiology~and current medications noted below. Continue current treatment with the changes noted in the dictated addendum note Assessment: Vital Signs: Vital Signs Date Time Temp Pulse Resp B/P (MAP) Pulse Ox O2 Delivery O2 Flow Rate FiO2 06/30/17 06:22 97.9 85 20 140/94 (109) 98 06/30/17 04:20 Room Air I&O Intake and Output 06/30/17 07:00 Intake Total 1320 ml Balance 1320 ml Intake Oral 1320 ml # Bowel Movements 2 Labs: Laboratory Tests Test 06/29/17 19:49 06/30/17 07:50 Glucose (Fingerstick) 108 mg/dL (70-99) H 113 mg/dL (70-99) H Current Medications: Meds: Current Medications Acetaminophen (Tylenol) 650 mg PRN Q6HRS PRN PO PAIN / TEMP; Start 06/12/17 at 16:45; Stop 06/30/17 at 11:29; Status DC Multi-Ingredient Ointment (Analgesic [place]) 1 karissa PRN QID PRN TP MUSCLE PAIN; Start 06/12/17 at 16:45; Stop 06/30/17 at 11:29; Status DC Al Hydroxide/Mg Hydroxide (Mylanta Plus Xs) 15 ml PRN AFTMEALHC PRN PO DYSPEPSIA; Start 06/12/17 at 16:45; Stop 06/30/17 at 11:29; Status DC Magnesium Hydroxide (Milk Of Magnesia) 2,400 mg PRN QHS PRN PO CONSTIPATION; Start 06/12/17 at 16:45; Stop 06/30/17 at 11:29; Status DC Albuterol Sulfate (Ventolin) 2.5 mg PRN Q6HRS PRN NEB SHORTNESS OF BREATH Last administered on 06/15/17at 06:00; Start 06/12/17 at 16:45; Stop 06/30/17 at 11:29 ; Status DC Albuterol Sulfate (Ventolin Hfa) 1 puff PRN QID PRN IH FOR ASTHMA; Start at 16:45; Status UNV Aspirin (Children'S Aspirin) 81 mg DAILY PO Last administered on 06/30/17 08: 51; Start 06/13/17 at 09:00; Stop 06/30/17 at 11:29; Status DC Diazepam (Valium) 2.5 mg BIDAFTMEAL PO Last administered on 06/30/17 08:58; Start 06/12/17 at 18:00; Stop 06/30/17 at 11:29; Status DC Diazepam (Valium) 7.5 mg QHS PO Last administered on 06/14/17 20:24; Start 01/19 at 21:00; Stop 06/15/17 at 19:22; Status DC Duloxetine HCl (Cymbalta) 20 mg DAILY PO Last administered on 06/30/17 08:51; Start 06/13/17 at 09:00; Stop 06/30/17 at 11:29; Status DC Duloxetine HCl (Cymbalta) 30 mg DAILY PO Last administered on 06/30/17 08:51; Start 06/13/17 at 09:00; Stop 06/30/17 at 11:29; Status DC EZETIMIBE (Zetia) 10 mg QHS PO Last administered on 06/29/17 20:47; Start 01/19 at 21:00; Stop 06/30/17 at 11:29; Status DC Furosemide (Lasix) 80 mg DAILY PO Last administered on 06/30/17 08:52; Start 06/13/17 at 09:00; Stop 06/30/17 at 11:29; Status DC Gabapentin (Neurontin) 300 mg QID PO Last administered on 06/30/17 08:51; Start 06/12/17 at 17:00; Stop 06/30/17 at 11:29; Status DC Acetaminophen/ Hydrocodone Bitart (Lortab 7.5/325) 1 tab PRN Q6HRS PRN PO PAIN Last administered on 06/24/17 17:47; Start 06/12/17 at 16:45; Stop 06/30/17 at 11:29; Status DC Albuterol/ Ipratropium (Duoneb) 3 ml RTQID NEB Last administered on 06/30/17 04:16; Start 4/11/18 at 20:00; Stop 06/30/17 at 11:29; Status DC Lubiprostone (Amitiza) 24 mcg BIDWMEALS PO Last administered on 06/30/17at 08:54 ; Start 06/12/17 at 17:00; Stop 06/30/17 at 11:29; Status DC Metformin HCl (Glucophage) 500 mg BIDWMEALS PO Last administered on 06/30/17at 08:52; Start 06/12/17 at 17:00; Stop 06/30/17 at 11:29; Status DC Montelukast Sodium (Singulair) 10 mg QHS PO Last administered on 06/29/17at 20: 47; Start 06/12/17 at 21:00; Stop 06/30/17 at 11:29; Status DC Pantoprazole Sodium (Protonix) 40 mg DAILYAC PO Last administered on 06/30/17at 08:51; Start 06/13/17 at 07:30; Stop 06/30/17 at 11:29; Status DC Phenytoin Sodium (Dilantin) 400 mg QHS PO Last administered on 06/29/17at 20:47 ; Start 06/12/17 at 21:00; Stop 06/30/17 at 11:29; Status DC Potassium Chloride (Klor-Con) 20 meq BID PO Last administered on 06/14/17at 08: 26; Start 06/12/17 at 21:00; Stop 06/14/17 at 16:26; Status DC Primidone (Mysoline) 125 mg QID PO Last administered on 06/30/17at 08:57; Start 06/12/17 at 17:00; Stop 06/30/17 at 11:29; Status DC Quetiapine Fumarate (SEROquel) 25 mg TIDAC PO ; Start 06/13/17 at 07:30; Stop at 07:30; Status DC Azelastine HCl (Astelin) 2 spray PRN BID PRN NS ALLERGIES Last administered on 06/21/17at 08:07; Start 06/12/17 at 21:00; Stop 06/30/17 at 11:29; Status DC Non-Formulary Medication (Fluticasone/ Umeclidin/ Vilanter (Trelegy Ellipta 100- 62.5-25)) 1 each DAILY IH Last administered on 06/30/17 08:52; Start 06/13/17 at 09:00; Stop 06/30/17 at 11:29; Status DC Lactulose (Lactulose) 20 gm QID PO Last administered on 06/15/17at 20:22; Start 06/12/17 at 21:00; Stop 06/16/17 at 18:55; Status DC Non-Formulary Medication (Levomilnacipran Hydrochloride (Fetzima)) 80 mg DAILY PO Last administered on 06/30/17at 08:53; Start 06/13/17 at 09:00; Stop at 11:29; Status DC Meclizine HCl (Antivert) 25 mg PRN QID PRN PO DIZZINESS; Start 06/12/17 at 17: 30; Stop 06/30/17 at 11:29; Status DC Mirtazapine (Remeron) 22.5 mg QHS PO Last administered on 06/12/17at 20:36; Start 06/12/17 at 21:00; Stop 06/13/17 at 10:38; Status DC Insulin Aspart (NovoLOG) 0-7 UNITS QIDACHS SQ Last administered on 06/29/17at 07 :59; Start 06/12/17 at 21:00; Stop 06/30/17 at 11:29; Status DC Dextrose 12.5 gm PRN Q15MIN PRN IV SEE COMMENTS; Start 06/12/17 at 17:15; Stop 06/30/17 at 11:29; Status DC Quetiapine Fumarate (SEROquel) 50 mg QHS PO Last administered on 06/23/17at 19: 48; Start 06/13/17 at 21:00; Stop 06/24/17 at 18:13; Status DC Potassium Chloride (Klor-Con) 20 meq TID PO Last administered on 06/30/17at 08: 51; Start 06/14/17 at 21:00; Stop 06/30/17 at 11:29; Status DC Diclofenac Sodium (Voltaren) 1 karissa PRN QHS PRN TP PAIN Last administered on at 20:39; Start 06/14/17 at 21:45; Stop 06/30/17 at 11:29; Status DC Diazepam (Valium) 5 mg QHS PO Last administered on 06/27/17at 20:10; Start 06/15 at 21:00; Stop 06/27/17 at 21:00; Status DC Divalproex Sodium (Depakote Er) 500 mg QHS PO Last administered on 06/17/17at 19 :31; Start 06/15/17 at 21:00; Stop 06/18/17 at 19:12; Status DC Diazepam (Valium) 1.5 mg QHS PO Last administered on 06/22/17at 20:43; Start at 21:00; Stop 06/23/17 at 16:21; Status DC Lactulose (Lactulose) 20 gm QID PO Last administered on 06/30/17at 08:51; Start 06/18/17 at 09:00; Stop 06/30/17 at 11:29; Status DC Cetirizine HCl (ZyrTEC) 10 mg DAILY PO Last administered on 06/30/17at 08:51; Start 06/23/17 at 09:00; Stop 06/30/17 at 11:29; Status DC Hydrocortisone (Cortaid) 1 karissa BID TP Last administered on 06/30/17at 08:55; Start 06/22/17 at 21:00; Stop 06/30/17 at 11:29; Status DC Diazepam (Valium) 0.5 mg QHS PO Last administered on 06/25/17at 22:02; Start at 21:00; Stop 06/26/17 at 20:59; Status DC Quetiapine Fumarate (SEROquel) 75 mg QHS PO Last administered on 06/29/17at 20: 47; Start 06/24/17 at 21:00; Stop 06/30/17 at 11:29; Status DC Oxcarbazepine (Trileptal) 300 mg DAILY PO Last administered on 06/27/17at 07:56 ; Start 06/25/17 at 17:00; Stop 06/27/17 at 12:52; Status DC Diazepam (Valium) 4 mg QHS PO Last administered on 06/29/17at 20:48; Start 06/27 at 21:00; Stop 06/30/17 at 11:29; Status DC Active Scripts Active Metformin Hcl 500 Mg Tablet 500 Mg PO BIDWMEALS 90 Days Albuterol Sulfate Neb Soln (Albuterol Sulfate) 2.5 Mg/3 Ml Vial.neb 2.5 Mg NEB PRN Q6HRS PRN 30 Days Reported Novolog Flexpen (Insulin Aspart) 100 Unit/1 Ml Insuln.pen 0-7 Units SQ QIDACHS PRN Sliding Scale Insulin Accuchecks: 70-150 = 0 units if eating/0 units if not eating or HS 151-200 = 3 units if eating/0 units if not eating or HS 201-250 = 4 units if eating/2 units if not eating or HS 251-300 = 6 untis if eating/3 units if not eating or HS 310-350 = 7 units if eating/4 units if not eating or HS > or = to 351 - Call physician for additional orders Hydrocortisone 453.6 Gm Cream..g. 1 [place] TP BID Valium (Diazepam) 2 Mg Tablet 4 Mg PO QHS Tylenol (Acetaminophen) 325 Mg Tablet 650 Mg PO PRN Q6HRS PRN Analgesic [place] (Methyl Salicylate/Menthol) 28 Gm Oint...g. 1 [place] TP PRN QID PRN Cymbalta (Duloxetine Hcl) 30 Mg Capsule.dr 30 Mg PO DAILY Cymbalta (Duloxetine Hcl) 20 Mg Capsule.dr 20 Mg PO DAILY Duoneb 0.5-3(2.5) Mg/3 Ml (Albuterol/Ipratropium) 3 Ml Ampul.neb 3 Ml NEB QID Seroquel (Quetiapine Fumarate) 25 Mg Tablet 75 Mg PO QHS Amitiza (Lubiprostone) 24 Mcg Capsule 24 Mcg PO BIDWMEALS Lactulose 10 Gm/15 Ml Solution 20 Gm PO QID Meclizine Hcl 25 Mg Tablet 25 Mg PO PRN QID PRN LAST DOSE GIVEN: DATE: TIME: NEXT DOSE DUE: DATE: TIME: Trelegy Ellipta 100-62.5-25 (Fluticasone/Umeclidin/Vilanter) 1 Each Blst.w.dev 1 Each IH DAILY Gabapentin 300 Mg Capsule 300 Mg PO QID Primidone 50 Mg Tablet 125 Mg PO QID Astepro (Azelastine Hcl) 205.5 Mcg/0.137 Ml [place].pump 2 Spr NS PRN BID PRN LAST DOSE GIVEN: DATE: TODAY TIME: AM NEXT DOSE DUE: DATE: TODAY TIME: PM Ventolin Hfa Inhaler (Albuterol Sulfate) 18 Gm Hfa.aer.ad 1 Puff IH PRN QID PRN LAST DOSE GIVEN: NOT GIVEN THIS ADMISSION NEXT DOSE DUE: DATE: TODAY TIME: IF NEEDED Furosemide 80 Mg Tablet 80 Mg PO DAILY LAST DOSE GIVEN: DATE: TODAY TIME: AM NEXT DOSE DUE: DATE: TOMORROW TIME: AM Hydrocodone-Apap 7.5-325 (Hydrocodone Bit/Acetaminophen) 1 Each Tablet 1 Tab PO PRN Q6HRS PRN LAST DOSE GIVEN: NOT GIVEN TODAY NEXT DOSE DUE: DATE: TODAY TIME: IF NEEDED TIME: IF AND WHEN NEEDED Klor-Con M20 (Potassium Chloride) 20 Meq Tab.er.prt 20 Meq PO TID LAST DOSE GIVEN: DATE: TODAY TIME: AM NEXT DOSE DUE: DATE: TODAY TIME: PM Montelukast Sodium Tablet (Montelukast Sodium) 10 Mg Tablet 10 Mg PO QHS LAST DOSE GIVEN: DATE: YESTER TIME: AT BEDTIME NEXT DOSE DUE: DATE: TODAY TIME: AT BEDTIME Protonix (Pantoprazole Sodium) 40 Mg Tablet.dr 40 Mg PO DAILYAC LAST DOSE GIVEN: DATE: TODAY TIME: BEFORE BREAKFAST NEXT DOSE DUE: DATE: TOMORROW TIME: BEFORE BREAKFAST Dilantin (Phenytoin Sodium Extended) 100 Mg Capsule 400 Mg PO QHS LAST DOSE GIVEN: DATE: YESTER TIME: AT BEDTIME NEXT DOSE DUE: DATE: TODAY TIME: AT BEDTIME Aspirin 81 Mg Tab.chew 81 Mg PO DAILY LAST DOSE GIVEN: DATE: TIME: AM NEXT DOSE DUE: DATE: TOMORROW TIME: AM Zetia (Ezetimibe) 10 Mg Tablet 10 Mg PO QHS LAST DOSE GIVEN: DATE: YESTER TIME: AT BEDTIME NEXT DOSE DUE: DATE: TODAY TIME: AT BEDTIME Diazepam 5 Mg Tablet 2.5 Mg PO BIDAFTMEAL LAST DOSE GIVEN: DATE: TODAY TIME: AM NEXT DOSE DUE: DATE: TODAY TIME: AFTERNOON I have reviewed the current psychotropics carefully including drug interactions. Risk benefit ratio favors no change other than as noted in my dictated progress note. Diagnosis: Problems: (1) Bipolar affective, mixed, severe (2) Impulse control disorder (3) Anxiety disorder SMILEY BETH MD Jun 30, 2017 18:18
--- NOTE | 2017-06-30 23:36 | PN ---
DATE: 06/28/2017 This is a late entry, 06/28/2017, covers the elements not covered in my initial note, 06/28/2017. SUBJECTIVE: I met with the patient in the evening. The patient slept 7-1/4 hours. We will repeat ammonia level morning of 06/29/2017. REVIEW OF SYSTEMS: No CV, , pulmonary, eye system symptoms on review. Still have slight slurring of speech. She minimizes this. MENTAL STATUS EXAM: Reasonably oriented. Speech as noted, abstraction fair, computation impaired, language function intact, attention span short. Mood and affect less anxious. No suicidal or homicidal ideation. LABORATORY DATA: Reviewed. IMPRESSION: Bipolar 1 disorder, mixed with psychotic features; anxiety disorder, unspecified. Rest unchanged. PLAN: Continue psychotropics as mentioned in my initial note for changes noted above. MAN Rivka BETH MD DR: CHRIS/elisa JOB#: [id number] / [id number]
--- NOTE | 2017-07-01 13:55 | PN ---
DATE: 06/28/2017 SUBJECTIVE: The patient stated she feels better today. She is more cheerful, active, and precipitated with all meetings with the physician and interacting with other patients. Today, she denies any neurological problems. She has not had any seizures since admission. She wanted to go home and she is somewhat anxious. The patient has been sleeping well. Due to recent ammonia level, Valium has been tapered and Trileptal has been discontinued as these 2 medications may increase ammonia level. OBJECTIVE: GENERAL: Moderately obese white woman in no acute distress. VITAL SIGNS: Blood pressure 111/67, respiratory rate 18, pulse is 60 and regular, temperature 98.3, oxygen saturation 96% on room air. HEENT: Normocephalic, atraumatic, otherwise unremarkable. NECK: Supple, negative for carotid bruit, lymphadenopathy, or thyromegaly. LUNGS: Clear to A and P, but diminished breath sounds. CARDIOVASCULAR: Regular rhythm, normal S1 and S2. ABDOMEN: Soft. Bowel sounds positive. EXTREMITIES: Negative for cyanosis, clubbing, or pitting edema. NEUROLOGICAL EXAMINATION: Mental Status: The patient is alert and oriented x 3. Speech is coherent, but slightly late, no language dysfunction. Memory, judgment, and abstract thinkings are fair. The patient denies hallucination or delusion. Cranial nerves are intact. No focal motor deficit. Tremor of the upper extremity has been significantly improved. The tone is normal in lower extremity. The strength is 4/5 in the lower extremity. Sensory examination revealed diminished pinprick and light touch in patchy distributions in both lower extremities. Deep tendon reflexes were symmetric and hypoactive with absent Achilles responses. Gait: The patient uses a walker for ambulation. She has not had any fall since admission. IMPRESSION: 1. Seizure disorder -- stable. 2. Elevated ammonia level. 3. Multiple psychiatric problems include anxiety and bipolar disorder. 4. Multiple medical problems includes chronic obstructive pulmonary disease, peripheral neuropathy in the lower extremities, chronic low back pain, gait disturbances, vertigo, obstructive sleep apnea, and chronic low back pain. RECOMMENDATIONS: 1. Continue with current management with medications. 2. Continue with psychiatric care initiated by Dr. Barron. 3. Slowly tapering Valium. 4. The patient had a followup at [facility] because of liver dysfunction and elevated ammonia level. 5. Follow up with Dr. Castillo after 2 weeks from discharge. M Alvaro CASTILLO MD DR: Brianna JOB#: [id number] / [id number]
--- NOTE | 2017-07-01 18:25 | PN ---
DATE: 06/26/2017 SUBJECTIVE: The patient denies any new medical or neurological complaints. She has not had any seizure. She stated her mood is better. She is more alert to surroundings but she denies diarrhea or abdominal pain. Glucose was 134. Sodium 141, potassium 4, chloride ____, CO2 of 32, BUN 15 and creatinine 0.8. Ammonia level was elevated. I was told the patient was somewhat in the past on the Depakote, which was discontinued. Dr. Barron had reduced the diazepam to 4 mg at bedtime and increased ____ 75 mg. He started her on mood stabilizer, like Trileptal at 300 mg daily. OBJECTIVE: GENERAL: Obese white female in no acute distress. VITAL SIGNS: Blood pressure 130/71, respiratory rate 20, pulse is 94 and regular, temperature 98.4, oxygen saturation 94% on room air. HEENT: Normocephalic, atraumatic, otherwise unremarkable. NECK: Supple. Negative for carotid bruit, lymphadenopathy or thyromegaly. LUNGS: Clear to A and P. CARDIOVASCULAR: Regular rhythm, S1, S2. ABDOMEN: Soft. Bowel sounds positive. EXTREMITIES: Negative for cyanosis, clubbing or pitting edema. NEUROLOGICAL EXAM: Mental Status: The patient is alert and oriented x 3. Speech is fluent. There is no language dysfunction. The patient recalls 2/3 immediately and 1/3 after 1 and 3 minutes. His judgment and abstract thinking are fair. The patient denies hallucination or delusion. Cranial nerves are intact. Motor Examination: No focal muscle bulk was seen. The tone is normal. The strength is 4/5 throughout. Sensory examination revealed diminished pinprick and light touch senses in patchy distribution in both lower extremities. Deep tendon reflexes were symmetric and hypoactive with absent Achilles responses. Gait: The patient uses a walker for ambulation. She has not had any falls. IMPRESSION: 1. Seizure disorder, stable. 2. Essential tremor, significantly improved. 3. Multiple psychiatric problems including bipolar disorder, severe depression with intermittent psychotic features. 4. Multiple medical problems including obesity, chronic obstructive pulmonary disease, obstructive sleep apnea, chronic lower back pain, peripheral neuropathy in the lower extremities and hepatic encephalopathy with elevated ammonia. RECOMMENDATIONS: Continue with current ____ and continue with current medical management as initiated by Dr. Ervin. M Alvaro CASTILLO MD DR: Brianna JOB#: [id number] / [id number]
--- NOTE | 2017-07-01 22:21 | DS ---
DATE OF DISCHARGE: 06/30/2017 DISCHARGE SUMMARY/PSYCHIATRIC PROGRESS NOTE This late entry for 06/30/2017 covers elements not covered in my initial of 06/30/2017. REASON FOR ADMISSION: Please refer to the admission history for details. Briefly, the patient is a 66-year-old female transferred to us from care home unit on account of worsening agitation, anxiety, confusion, slurred speech. The patient had tried to walk out of the care home unit, walked on to the street with her walker, intending to walk for 15 or 20 miles to go to [place]. She appeared quite labile. We initiated Seroquel for her mood stability as Valium was being tapered given her history of intermittent elevation of ammonia levels and since Valium could partially contribute to it as other medications could. I saw her daily individually from a psychiatric standpoint, medical followup per Dr. Ervin/Dr Callejas. CLINICAL COURSE: The patient's Valium was gradually further reduced and Seroquel adjusted to 50 mg at bedtime, Valium prior to discharge was 2.5 mg b.i.d., 5 mg at bedtime on 06/28/2017 with decrease to 4 mg on that date. She is also on Dilantin 400 mg at bedtime, Cymbalta 50 mg a day, Mysoline 125 mg 4 times a day. CONDITION AT DISCHARGE: Improved. REVIEW OF SYSTEMS: Prior to discharge, ambulation impaired. No CV, , pulmonary, eye system symptoms on review. MENTAL STATUS EXAM: Oriented to herself and situation. Speech less slurred. Abstraction fair, computation impaired, language function intact, attention span short. Mood and affect, lability was improved. LABORATORY DATA: Reviewed. FINAL DIAGNOSES: Bipolar 1 disorder, mixed, in partial remission; anxiety disorder, unspecified; history of major depressive disorder, elevated ammonia levels around 180. She has a followup at for this per Dr. Porter arranging this. DISCHARGE MEDICATIONS: Please refer to the EMRAD. DISCHARGE INSTRUCTIONS: Outpatient followup with Dr. Porter from medical and psychiatric standpoint. Time for discharge day management greater than 30 minutes. MAN Rivka BETH MD DR: CHRIS/elisa JOB#: [id number] / [id number]
--- NOTE | 2017-07-02 02:57 | PN ---
DATE: 06/29/2017 This is a late entry for 06/29/2017 covers elements not covered in my initial note of 06/29/2017. SUBJECTIVE: I met with the patient in the evening. The patient slept 7-1/2 hours previous evening. The patient has been out to the day room, little less tired, less confused, slurred speech is better as well. REVIEW OF SYSTEMS: Ambulation impaired with walker. No CV, , pulmonary, eye system symptoms on review. MENTAL STATUS EXAM: Oriented to herself and situation. Speech coherent, less pressured. Abstraction fair, computation impaired, language function intact, attention span short. Mood and affect still somewhat anxious. LABORATORY DATA: Reviewed. IMPRESSION: Bipolar 1 disorder, unspecified. Rest unchanged. PLAN: Defer monitoring and treatment for raised ammonia to Dr. Callejas/Dr. Ervin. Continue rest unchanged. Per initial note, continue to taper the Valium since this could be contributing to the raised ammonia levels. MAN Rivka BETH MD DR: CHRIS/elisa JOB#: [id number] / [id number]
== END 2017-06-30 11:00 | disposition home health service (06) | DRG 885 ==
LOC: GEROPSY 15:50
PROVIDERS: ADMIT Psychiatry & Neurology Psychiatry; ATTEND Psychiatry & Neurology Psychiatry
DX: F31.64 Bipolar disorder, current episode mixed, severe, with psychotic features (principal); E11.42 Type 2 diabetes mellitus with diabetic polyneuropathy; F05 Delirium due to known physiological condition; R45.851 Suicidal ideations; E66.01 Morbid (severe) obesity due to excess calories; E78.5 Hyperlipidemia, unspecified; F31.77 Bipolar disorder, in partial remission, most recent episode mixed; F63.9 Impulse disorder, unspecified; F41.9 Anxiety disorder, unspecified; G25.0 Essential tremor; G40.909 Epilepsy, unspecified, not intractable, without status epilepticus; G89.4 Chronic pain syndrome; G47.33 Obstructive sleep apnea (adult) (pediatric); I10 Essential (primary) hypertension; J44.9 Chronic obstructive pulmonary disease, unspecified; K21.9 Gastro-esophageal reflux disease without esophagitis; K72.90 Hepatic failure, unspecified without coma; M79.7 Fibromyalgia; M19.90 Unspecified osteoarthritis, unspecified site; Z79.899 Other long term (current) drug therapy; Z88.1 Allergy status to other antibiotic agents; Z88.0 Allergy status to penicillin; Z88.2 Allergy status to sulfonamides; Z88.8 Allergy status to other drugs, medicaments and biological substances; Z82.49 Family history of ischemic heart disease and other diseases of the circulatory system; Z68.38 Body mass index [BMI] 38.0-38.9, adult; Z79.82 Long term (current) use of aspirin
CPT/HCPCS: 36415; 80053; 80061; 80164; 80185; 81001; 82140; 82306; 82607; 82947; 83036; 83540; 83550; 83735; 83880; 84436; 84443; 84480; 85025; 86593; 94640; J7613; J7620

== ENCOUNTER 2017-07-08 11:31 | Inpatient (IN) | payer MEDICARE, BC ==
[~2017-07-08] VITALS: Ht 162.6 cm; Wt 96.6 kg
[~2017-07-08 11:31] MED LIST changes: +DIAZ2TAB PO; +DULO20CA50 PO; +DULO30CA2 PO; +HYDR453. TP; +LUBI24CA7 PO; -METF500T4 PO; +METF500T5 PO; +QUET25TA5 PO
[2017-07-08 11:55] VITALS: BP 154/61
[2017-07-08 12:51] LABS: BASO % 1 % (0-3); EOS # 0.2 x10^3/uL (0.0-0.7); EOS % 4 % (0-3); HEMATOCRIT 35.1 % (36.0-47.0); HEMOGLOBIN 12.3 g/dL (12.0-15.5); LYMPH # 1.6 x10^3/uL (1.0-4.8); LYMPH % 40 % (24-48); MEAN CORPUSCULAR HEMOGLOBIN 32 pg (25-35); MEAN CORPUSCULAR HGB CONC 35 g/dL (31-37); MEAN CORPUSCULAR VOLUME 92 fL (79-100); MONO # 0.4 x10^3/uL (0.0-1.1); MONO % 11 % (0-9); NEUT # 1.8 x10^3uL (1.8-7.7); NEUT % 45 % (31-73); PLATELET COUNT 181 x10^3/uL (140-400); RED BLOOD COUNT 3.84 x10^6/uL (3.50-5.40); RED CELL DISTRIBUTION WIDTH 16.1 % (11.5-14.5); WHITE BLOOD COUNT 4.1 x10^3/uL (4.0-11.0)
[2017-07-08 13:04] LABS: ALBUMIN 3.4 g/dL (3.4-5.0); ALBUMIN/GLOBULIN RATIO 0.8 (1.0-1.7); CALCIUM 8.8 mg/dL (8.5-10.1); CREATININE 0.9 mg/dL (0.6-1.0); GFR 62.6; POTASSIUM 3.7 mmol/L (3.5-5.1); TOTAL BILIRUBIN 0.4 mg/dL (0.2-1.0); TOTAL PROTEIN 7.9 g/dL (6.4-8.2)
--- NOTE | 2017-07-08 13:17 | RAD ---
CHEST AP ONLY 12:50 PM Clinical indications: cough. History of left lung base infiltrate or atelectasis. Possible pneumonia. COMPARISON: June 03, 2017. Findings: Decreased lung volumes are again evident. Again seen is mild linear atelectasis of the left lower lung zone. No new lung infiltrate or pleural effusion or pulmonary edema or lung mass or pneumothorax is seen. The heart size, pulmonary vasculature, mediastinum and both pamela are stable. Impression: No new radiographic abnormality is seen. Electronically signed by: Baldomero Tobar MD (07/08/2017 1:14 PM) [facility]
[2017-07-08 15:28] VITALS: BP 108/61
[2017-07-08 16:54] LABS: BACTERIA,URINE 0 /HPF (0-FEW); BILIRUBIN,URINE NEG (NEG); CLARITY,URINE CLEAR; COLOR,URINE YELLOW; GLUCOSE,URINE NEG (NEG); NITRITE,URINE NEG (NEG); RBC,URINE OCC /HPF (0-2); SQUAMOUS EPITHELIAL CELL,UR FEW /LPF; UROBILINOGEN,URINE 0.2 mg/dL (0.2 mg/dL); WBC,URINE OCC /HPF (0-4)
[2017-07-08 18:14] VITALS: BP 101/64
[2017-07-08] MEDS ORDERED: ACETAMINOPHEN 325 MG TABLET PO PRN (19:45)
[2017-07-08] MEDS ORDERED: ALBUTEROL SULFATE 2.5 MG/3 ML NEBU. NEB PRN ×2 (19:45→20:15)
[2017-07-08] MEDS ORDERED: METHYL SALICYLATE/MENTHOL TOPICAL OINTMENT 29GM TUBE. TP PRN (19:45)
[2017-07-08] MEDS ORDERED: ALBUTEROL SULFATE 8GM INHALER. IH PRN (19:45)
[2017-07-08] MEDS ORDERED: INSULIN ASPART 300 UNITS/3 ML INSULN.PEN SQ PRN (19:45)
[2017-07-08] MEDS ORDERED: HYDROcodone/APAP 7.5/325MG 1 TAB TABLET PO PRN (19:45)
[2017-07-08] MEDS ORDERED: MECLIZINE 12.5 MG TABLET. PO PRN (20:00)
[2017-07-08] MEDS: IPRATRPIUM/ALBUTEROL 0.5/2.5MG 3 ML NEBU. NEB SCH (20:31)
[2017-07-08] MEDS: BUDESONIDE 0.5 MG/2 ML NEBU NEB SCH (20:31)
[2017-07-08] MEDS: LACTULOSE 20 GM/30 ML SOLUTION. PO SCH (20:59)
[2017-07-08] MEDS: POTASSIUM CHLORIDE 20 MEQ TABLET.ER. PO SCH (20:59)
[2017-07-08] MEDS: QUEtiapine 50 MG TABLET. PO SCH (21:00)
[2017-07-08] MEDS: MONTELUKAST 10 MG TABLET. PO SCH (21:00)
[2017-07-08] MEDS ORDERED: AZELASTINE NASAL SPRAY 30ML BOTTLE. NS PRN (21:00)
[2017-07-08] MEDS: GABAPENTIN 300 MG CAPSULE. PO SCH (21:00)
[2017-07-08] MEDS: HYDROCORTISONE 1% TOPICAL CREAM 30GM TUBE. TP SCH (21:00)
[2017-07-08] MEDS: INSULIN LISPRO 300 UNITS/3 ML INSULN.PEN. SQ SCH (21:00)
[2017-07-08] MEDS: PRIMIDONE 250 MG TABLET PO SCH (21:00)
[2017-07-08] MEDS: EZETIMIBE 10 MG TABLET PO SCH (21:00)
[2017-07-08] MEDS: diazePAM 2 MG TABLET PO SCH (21:00)
[2017-07-08] MEDS: PHENYTOIN SODIUM EXTENDED 100 MG CAPSULE PO SCH (21:03)
[2017-07-08] MEDS: HEPARIN PF for SUB-Q USE 5,000 UNIT/0.5 ML VIAL. SQ SCH (21:12)
[2017-07-08 22:19] VITALS: BP 106/58
[2017-07-09] MEDS: IPRATRPIUM/ALBUTEROL 0.5/2.5MG 3 ML NEBU. NEB SCH ×4 (04:16→21:26)
[2017-07-09] MEDS: HEPARIN PF for SUB-Q USE 5,000 UNIT/0.5 ML VIAL. SQ SCH ×3 (05:24→21:34)
[2017-07-09 06:00] VITALS: BP 106/64
[2017-07-09] MEDS: INSULIN LISPRO 300 UNITS/3 ML INSULN.PEN. SQ SCH ×4 (07:30→21:00)
[2017-07-09 07:31] LABS: BASO % 1 % (0-3); EOS # 0.1 x10^3/uL (0.0-0.7); EOS % 4 % (0-3); HEMATOCRIT 34.3 % (36.0-47.0); LYMPH # 1.7 x10^3/uL (1.0-4.8); LYMPH % 42 % (24-48); MEAN CORPUSCULAR HEMOGLOBIN 32 pg (25-35); MEAN CORPUSCULAR HGB CONC 35 g/dL (31-37); MEAN CORPUSCULAR VOLUME 91 fL (79-100); MONO # 0.4 x10^3/uL (0.0-1.1); MONO % 10 % (0-9); NEUT # 1.8 x10^3uL (1.8-7.7); NEUT % 45 % (31-73); PLATELET COUNT 164 x10^3/uL (140-400); RED BLOOD COUNT 3.76 x10^6/uL (3.50-5.40); RED CELL DISTRIBUTION WIDTH 16.3 % (11.5-14.5)
[2017-07-09] MEDS: diazePAM 5 MG TABLET PO SCH ×2 (08:19→12:51)
[2017-07-09] MEDS: PRIMIDONE 250 MG TABLET PO SCH ×4 (08:25→21:25)
[2017-07-09] MEDS: LUBIPROSTONE 24 MCG CAPSULE PO SCH ×2 (08:25→18:44)
[2017-07-09] MEDS: DULoxetine HCL 30 MG CAPSULE.DR PO SCH (08:26)
[2017-07-09] MEDS: DULoxetine HCL 20 MG CAPSULE.DR PO SCH (08:26)
[2017-07-09] MEDS: FUROSEMIDE 80 MG TABLET PO SCH (08:26)
[2017-07-09] MEDS: ASPIRIN 81 MG TAB.CHEW PO SCH (08:26)
[2017-07-09] MEDS: PANTOPRAZOLE 40 MG TABLET. PO SCH (08:26)
[2017-07-09] MEDS: POTASSIUM CHLORIDE 20 MEQ TABLET.ER. PO SCH ×3 (08:26→21:25)
[2017-07-09] MEDS: metFORMIN 500 MG TABLET PO SCH ×2 (08:26→18:44)
[2017-07-09] MEDS: LACTULOSE 20 GM/30 ML SOLUTION. PO SCH ×4 (08:26→21:26)
[2017-07-09] MEDS: GABAPENTIN 300 MG CAPSULE. PO SCH ×4 (08:27→21:25)
[2017-07-09] MEDS: HYDROCORTISONE 1% TOPICAL CREAM 30GM TUBE. TP SCH ×2 (08:30→21:00)
[2017-07-09] MEDS ORDERED: NON FORMULARY ITEM (Fluticasone/Umeclidin/Vilanter (Trelegy Ellipta 100-62.5-25) 1 EACH) IH SCH (09:00)
[2017-07-09] MEDS: BUDESONIDE 0.5 MG/2 ML NEBU NEB SCH ×2 (10:15→21:26)
[2017-07-09 10:23] VITALS: BP 111/63
[2017-07-09 10:54] LABS: ALBUMIN 3.3 g/dL (3.4-5.0); ALBUMIN/GLOBULIN RATIO 0.8 (1.0-1.7); CALCIUM 8.9 mg/dL (8.5-10.1); CREATININE 0.9 mg/dL (0.6-1.0); GFR 62.6; TOTAL BILIRUBIN 0.3 mg/dL (0.2-1.0); TOTAL PROTEIN 7.6 g/dL (6.4-8.2)
[2017-07-09 10:55] LABS: POTASSIUM 3.7 mmol/L (3.5-5.1)
[2017-07-09 15:53] VITALS: BP 120/68
[2017-07-09 18:46] VITALS: BP 118/53
[2017-07-09] MEDS: MONTELUKAST 10 MG TABLET. PO SCH (21:25)
[2017-07-09] MEDS: EZETIMIBE 10 MG TABLET PO SCH (21:25)
[2017-07-09] MEDS: PHENYTOIN SODIUM EXTENDED 100 MG CAPSULE PO SCH (21:25)
[2017-07-09] MEDS: QUEtiapine 50 MG TABLET. PO SCH (21:26)
[2017-07-09] MEDS: diazePAM 2 MG TABLET PO SCH (21:26)
--- NOTE | 2017-07-09 21:26 | PN ---
DATE: 07/09/2017 SUBJECTIVE: Acute encephalopathy secondary to elevated ammonia levels and ANTUNEZ. The patient is resting fairly comfortably. She says she is a little better and ammonia levels have come down dramatically, it is not quite clear. She is taking the same medication she takes at home. We are trying to get her into for further evaluation of what appears to be ANTUNEZ. PHYSICAL EXAMINATION: VITAL SIGNS: Blood pressure 106/64, respiratory 20, pulse 70, afebrile. GENERAL: The patient is alert and oriented. LUNGS: Diminished, but clear. CARDIOVASCULAR: Regular sinus rhythm. ABDOMEN: Soft, nontender. The patient much more cognizant, alert, and oriented today than she was yesterday where she was markedly confused and disoriented yesterday. ASSESSMENT AND PLAN: 1. We will continue with present drug regimen, monitor until tomorrow. 2. Acute encephalopathy secondary to elevated ammonia levels as well as nonalcoholic steatohepatitis. 3. Morbid obesity. SCOOTER HOPKINS MD DR: NGOZI/elisa JOB#: [id number] / [id number]
[2017-07-09 22:18] VITALS: BP 101/58
[2017-07-10] MEDS: HEPARIN PF for SUB-Q USE 5,000 UNIT/0.5 ML VIAL. SQ SCH (05:33)
[2017-07-10] MEDS: IPRATRPIUM/ALBUTEROL 0.5/2.5MG 3 ML NEBU. NEB SCH ×2 (05:34→09:24)
[2017-07-10 05:55] VITALS: BP 97/53
[2017-07-10 06:52] LABS: CALCIUM 8.3 mg/dL (8.5-10.1); CREATININE 0.8 mg/dL (0.6-1.0); GFR 71.8; POTASSIUM 3.5 mmol/L (3.5-5.1)
[2017-07-10] MEDS: POTASSIUM CHLORIDE 20 MEQ TABLET.ER. PO SCH (08:18)
[2017-07-10] MEDS: GABAPENTIN 300 MG CAPSULE. PO SCH (08:18)
[2017-07-10] MEDS: ASPIRIN 81 MG TAB.CHEW PO SCH (08:18)
[2017-07-10] MEDS: diazePAM 5 MG TABLET PO SCH (08:19)
[2017-07-10] MEDS: metFORMIN 500 MG TABLET PO SCH (08:19)
[2017-07-10] MEDS: PANTOPRAZOLE 40 MG TABLET. PO SCH (08:19)
[2017-07-10] MEDS: FUROSEMIDE 80 MG TABLET PO SCH (08:19)
[2017-07-10] MEDS: DULoxetine HCL 20 MG CAPSULE.DR PO SCH (08:19)
[2017-07-10] MEDS: DULoxetine HCL 30 MG CAPSULE.DR PO SCH (08:19)
[2017-07-10] MEDS: LUBIPROSTONE 24 MCG CAPSULE PO SCH (08:21)
[2017-07-10] MEDS: LACTULOSE 20 GM/30 ML SOLUTION. PO SCH (08:21)
[2017-07-10] MEDS: PRIMIDONE 250 MG TABLET PO SCH (08:21)
[2017-07-10] MEDS: HYDROCORTISONE 1% TOPICAL CREAM 30GM TUBE. TP SCH (08:25)
[2017-07-10] MEDS: INSULIN LISPRO 300 UNITS/3 ML INSULN.PEN. SQ SCH (08:25)
[2017-07-10] MEDS: BUDESONIDE 0.5 MG/2 ML NEBU NEB SCH (09:24)
--- NOTE | 2017-07-10 10:18 | DS ---
DATE OF DISCHARGE: 07/10/2017 HOSPITAL COURSE: The patient came in with acute encephalopathy and her ammonia level was in the 60s, came down under the right back up a little bit, told her to go back on a vegan diet. She has been contacted with Hepatology to evaluate the possibility of ANTUNEZ ____ lower the ammonia levels. The patient mentally was much more alert and oriented well by the time she left. IMPRESSION: Therefore, acute metabolic encephalopathy, hyperglycemia, moderate protein malnutrition, morbid obesity, multiple other comorbidities. DISCHARGE INSTRUCTIONS: She will be on a low-protein diet and follow up at . ACTIVITY: As tolerated. SCOOTER HOPKINS MD DR: NGOZI/elisa JOB#: [id number] / [id number]
[2017-07-10 11:06] VITALS: BP 107/56
== END 2017-07-10 11:55 | disposition home health service (06) | DRG 441 ==
LOC: 1 SOUTH 11:31
PROVIDERS: ADMIT Family Medicine; ATTEND Family Medicine
PROC: 5A09357 Assistance with Respiratory Ventilation, Less than 24 Consecutive Hours, Continuous Positive Airway Pressure (ICD-10-PCS; principal; 2017-07-08)
PROC: 5A09357 Assistance with Respiratory Ventilation, Less than 24 Consecutive Hours, Continuous Positive Airway Pressure (ICD-10-PCS; 2017-07-09)
PROC: 5A09357 Assistance with Respiratory Ventilation, Less than 24 Consecutive Hours, Continuous Positive Airway Pressure (ICD-10-PCS; 2017-07-10)
DX: K75.81 Nonalcoholic steatohepatitis (NASH) (principal); G93.41 Metabolic encephalopathy; E44.0 Moderate protein-calorie malnutrition; Z99.81 Dependence on supplemental oxygen; E66.01 Morbid (severe) obesity due to excess calories; R73.9 Hyperglycemia, unspecified; E78.5 Hyperlipidemia, unspecified; J45.909 Unspecified asthma, uncomplicated; M81.0 Age-related osteoporosis without current pathological fracture; K21.9 Gastro-esophageal reflux disease without esophagitis; F32.9 Major depressive disorder, single episode, unspecified; F41.9 Anxiety disorder, unspecified; Z96.651 Presence of right artificial knee joint; G89.29 Other chronic pain; Z68.36 Body mass index [BMI] 36.0-36.9, adult; Z88.6 Allergy status to analgesic agent; Z88.1 Allergy status to other antibiotic agents; Z88.0 Allergy status to penicillin; Z88.2 Allergy status to sulfonamides; Z88.8 Allergy status to other drugs, medicaments and biological substances; Z86.711 Personal history of pulmonary embolism; Z79.01 Long term (current) use of anticoagulants; Z98.42 Cataract extraction status, left eye; Z90.49 Acquired absence of other specified parts of digestive tract; Z83.3 Family history of diabetes mellitus; Z82.49 Family history of ischemic heart disease and other diseases of the circulatory system; Z85.820 Personal history of malignant melanoma of skin
CPT/HCPCS: 36415; 71045; 80048; 80053; 81001; 82140; 82947; 85025; 94640; J1815; J7620; J7626; 97110

== ENCOUNTER 2017-07-19 13:43 | Inpatient (IN) | payer MEDICARE, BC ==
[~2017-07-19] VITALS: Ht 162.6 cm; Wt 99.0 kg
[2017-07-19 14:22] LABS: BASO # 0.1 x10^3/uL (0.0-0.2); BASO % 2 % (0-3); EOS # 0.2 x10^3/uL (0.0-0.7); EOS % 4 % (0-3); HEMATOCRIT 37.4 % (36.0-47.0); HEMOGLOBIN 12.8 g/dL (12.0-15.5); LYMPH # 1.7 x10^3/uL (1.0-4.8); LYMPH % 39 % (24-48); MEAN CORPUSCULAR HEMOGLOBIN 31 pg (25-35); MEAN CORPUSCULAR HGB CONC 34 g/dL (31-37); MEAN CORPUSCULAR VOLUME 91 fL (79-100); MONO # 0.5 x10^3/uL (0.0-1.1); MONO % 11 % (0-9); NEUT # 1.9 x10^3uL (1.8-7.7); NEUT % 43 % (31-73); PLATELET COUNT 155 x10^3/uL (140-400); RED BLOOD COUNT 4.11 x10^6/uL (3.50-5.40); WHITE BLOOD COUNT 4.3 x10^3/uL (4.0-11.0)
--- NOTE | 2017-07-19 14:33 | RAD ---
CT HEAD WO CONTRAST Indication: ALTERED MENTAL STATUS Exposure: One or more of the following individualized dose reduction techniques were utilized for this examination: 1. Automated exposure control 2. Adjustment of the mA and/or kV according to patient size 3. Use of iterative reconstruction technique. Comparison: September 18, 2016 Contrast: None Patient is asymmetrically positioned in the scanner which may limit sensitivity for detection of pathology. No evidence of acute intracranial hemorrhage or abnormal extra-axial fluid collection. No evidence of mass effect or midline shift. Banks-white matter distinction is intact. Ventricles unremarkable and symmetric Small scattered benign-appearing parenchymal calcifications are redemonstrated. Visualized orbits are unremarkable. There may be mild mucosal thickening of the sphenoid sinus. No acute calvarial abnormality Impression: 1. No acute intracranial hemorrhage or mass effect. 2. There may be mild sphenoid sinus disease. Electronically signed by: Mat Laboy MD (07/19/2017 2:29 PM) [facility]
[2017-07-19 14:34] LABS: ALBUMIN 3.7 g/dL (3.4-5.0); ALBUMIN/GLOBULIN RATIO 0.9 (1.0-1.7); CALCIUM 8.7 mg/dL (8.5-10.1); CREATININE 1.1 mg/dL (0.6-1.0); GFR 49.7; POTASSIUM 3.9 mmol/L (3.5-5.1); TOTAL BILIRUBIN 0.4 mg/dL (0.2-1.0)
--- NOTE | 2017-07-19 14:45 | RAD ---
AP portable chest radiograph 07/19/2017 Clinical History: Shortness of breath. An AP erect portable digital radiograph of the chest was obtained. Comparison study is dated 07/08/2017. The cardiac silhouette is mildly enlarged. The thoracic aorta is mildly tortuous. Mild elevation of the right hemidiaphragm is seen. No acute pulmonary infiltrate is seen. No pleural effusion or pneumothorax is noted. The osseous structures are unchanged. Impression: No acute abnormality is seen. Electronically signed by: Grzegorz Wagner MD (07/19/2017 2:41 PM) [facility]
[2017-07-19 15:00] LABS: COLOR,URINE YELLOW
--- NOTE | 2017-07-19 15:00 | EKG ---
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
[2017-07-19 15:01] LABS: BACTERIA,URINE FEW /HPF (0-FEW); BILIRUBIN,URINE NEG (NEG); CLARITY,URINE CLEAR; GLUCOSE,URINE NEG (NEG); HYALINE CASTS, URINE OCC /HPF; NITRITE,URINE NEG (NEG); SQUAMOUS EPITHELIAL CELL,UR MANY /LPF; UROBILINOGEN,URINE 0.2 mg/dL (0.2 mg/dL); WBC,URINE 0 /HPF (0-4)
[2017-07-19] MEDS ORDERED: IV DEXTROSE 5% - 0.9 % NACL 1,000 ML IV ONE (16:00)
[2017-07-19] MEDS ORDERED: ONDANSETRON PF 4 MG/2 ML VIAL. IV PRN (16:00)
--- NOTE | 2017-07-19 16:06 | ED.ADGEN ---
Past History Past Medical History: Bronchitis, Fibromyalgia, Seizure Past Surgical History: Appendectomy, Cholecystectomy, Smoking: Non-smoker Alcohol Use: None Drug Use: None Adult General Chief Complaint Chief Complaint AMS HPI HPI Patient is a [66-year-old female with history of chronic liver disease with encephalopathy presents with increased fatigue, confusion and somnolence since yesterday. Patient had home health lab draw today show an elevated ammonia level. Patient was referred to the ED by her primary care physician. No fevers chills, nausea vomiting and sweats. Decreased by mouth intake today. Patient has similar episode of weakness with confusion with elevated ammonia levels requiring hospitalization earlier this month. She is compliant with all medications with exception of today. She is on Dilantin, Seroquel and Valium and is process of being weaned off Valium according to spouse. She has not took additional medications. History is limited as the patient somnolent and falls asleep before answering questions.[] Review of Systems Review of Systems ROS as per HPI [] All other systems were reviewed and found to be within normal limits, except as documented in this note. Current Medications Current Medications Current Medications Medications (Trade) Dose Ordered Sig/Keegan Start Time Stop Time Status Last Admin Dose Admin Dextrose/Sodium Chloride 1,000 ml @ 75 mls/hr 1X ONCE 07/19/17 16:00 07/20/17 05:19 UNV Lactulose (Lactulose) 45 gm QID 07/19/17 17:00 UNV Ondansetron HCl (Zofran) 4 mg PRN Q4HRS PRN 07/19/17 16:00 07/20/17 15:59 UNV Allergies Allergies Allergies Coded Allergies Type Severity Reaction Last Updated Verified Penicillins Allergy Intermediate 12/20/14 Yes Sulfa (Sulfonamide Antibiotics) Allergy Intermediate 12/20/14 Yes enoxaparin sodium Allergy Intermediate Rash 12/20/14 Yes erythromycin base Allergy Intermediate 12/20/14 Yes Physical Exam Physical Exam Constitutional: Well developed, well nourished, somnolent, arouses to verbal stimulation.. [] HENT: Normocephalic, atraumatic, bilateral external ears normal, oropharynx moist, no oral exudates, nose normal. [] Eyes: PERRLA, EOMI, conjunctiva normal, no discharge. [] Neck: Normal range of motion, no tenderness, supple, no stridor. [] Cardiovascular:Heart rate regular rhythm, no murmur [] Lungs & Thorax: Bilateral breath sounds clear to auscultation [] Abdomen: Bowel sounds normal, soft, no tenderness, no masses, no pulsatile masses. [] Skin: Warm, dry, no erythema, no rash. [] Back: No tenderness, no CVA tenderness. [] Extremities: No tenderness, no cyanosis, no clubbing, ROM intact, no edema. [] Neurologic: Alert and oriented X person, normal motor function, normal sensory function, no focal deficits noted. [] Psychologic: Affect flat. [] Current Patient Data Vital Signs Vital Signs Date Time Temp Pulse Resp B/P (MAP) Pulse Ox O2 Delivery O2 Flow Rate FiO2 07/19/17 13:51 98.4 99 20 91 Lab Results Laboratory Tests Test 07/19/17 14:08 07/19/17 14:41 White Blood Count 4.3 x10^3/uL (4.0-11.0) Red Blood Count 4.11 x10^6/uL (3.50-5.40) Hemoglobin 12.8 g/dL (12.0-15.5) Hematocrit 37.4 % (36.0-47.0) Mean Corpuscular Volume 91 fL (79-100) Mean Corpuscular Hemoglobin 31 pg (25-35) Mean Corpuscular Hemoglobin Concent 34 g/dL (31-37) Red Cell Distribution Width 16.0 % (11.5-14.5) H Platelet Count 155 x10^3/uL (140-400) Neutrophils (%) (Auto) 43 % (31-73) Lymphocytes (%) (Auto) 39 % (24-48) Monocytes (%) (Auto) 11 % (0-9) H Eosinophils (%) (Auto) 4 % (0-3) H Basophils (%) (Auto) 2 % (0-3) Neutrophils # (Auto) 1.9 x10^3uL (1.8-7.7) Lymphocytes # (Auto) 1.7 x10^3/uL (1.0-4.8) Monocytes # (Auto) 0.5 x10^3/uL (0.0-1.1) Eosinophils # (Auto) 0.2 x10^3/uL (0.0-0.7) Basophils # (Auto) 0.1 x10^3/uL (0.0-0.2) Sodium Level 142 mmol/L (136-145) Potassium Level 3.9 mmol/L (3.5-5.1) Chloride Level 100 mmol/L (98-107) Carbon Dioxide Level 29 mmol/L (21-32) Anion Gap 13 (6-14) Blood Urea Nitrogen 14 mg/dL (7-20) Creatinine 1.1 mg/dL (0.6-1.0) H Estimated GFR (Cockcroft-Gault) 49.7 BUN/Creatinine Ratio 13 (6-20) Glucose Level 97 mg/dL (70-99) Calcium Level 8.7 mg/dL (8.5-10.1) Total Bilirubin 0.4 mg/dL (0.2-1.0) Aspartate Amino Transferase (AST) 24 U/L (15-37) Alanine Aminotransferase (ALT) 27 U/L (14-59) Alkaline Phosphatase 190 U/L (46-116) H Ammonia 97 mcmol/L (11-34) H Troponin I Quantitative < 0.017 ng/mL (0-0.055) Total Protein 8.0 g/dL (6.4-8.2) Albumin 3.7 g/dL (3.4-5.0) Albumin/Globulin Ratio 0.9 (1.0-1.7) L Urine Collection Type U cath Urine Color Yellow Urine Clarity Clear Urine pH 6.5 Urine Specific [place] 1.015 Urine Protein Neg (NEG-TRACE) Urine Glucose (UA) Neg mg/dL (NEG) Urine Ketones (Stick) Neg mg/dL (NEG) Urine Blood Trace (NEG) Urine Nitrite Neg (NEG) Urine Bilirubin Neg (NEG) Urine Urobilinogen Dipstick 0.2 mg/dL (0.2 mg/dL) Urine Leukocyte Esterase Neg (NEG) Urine RBC 1-2 /HPF (0-2) Urine WBC 0 /HPF (0-4) Urine Squamous Epithelial Cells Many /LPF Urine Bacteria Few /HPF (0-FEW) Urine Hyaline Casts Occ /HPF EKG EKG [] Radiology/Procedures Radiology/Procedures [CT head: No acute findings per radiology report Chest x-ray: No acute cardiopulmonary disease per radiology report] Course & Med Decision Making Course & Med Decision Making Pertinent Labs and Imaging studies reviewed. (See chart for details) [Mental status changes likely secondary to hepatic encephalopathy. Dr. Porter to admit. Courtesy bridge orders provided. ] Final Impression Final Impression [1. AMS 2. Hepatic encephalopathy] Awais Disclaimer Awais Disclaimer This electronic medical record was generated, in whole or in part, using a voice recognition dictation system. NICOLE JACOBS DO July 19, 2017 16:06
[2017-07-19] MEDS ORDERED: ONDANSETRON ODT 4 MG TAB.RAPDIS PO PRN (16:15)
[2017-07-19 16:34] VITALS: BP 108/67
--- NOTE | 2017-07-19 17:33 | RAD ---
EXAM: Cervical, thoracic and lumbar spine CT without contrast. HISTORY: Pain. TECHNIQUE: Computed tomographic images of the cervical, thoracic and lumbar spine were obtained without contrast. Multiplanar reformatting was performed. *One or more of the following individualized dose reduction techniques were utilized for this examination: 1. Automated exposure control. 2. Adjustment of the mA and/or kV according to patient size. 3. Use of iterative reconstruction technique. COMPARISON: 08/10/2016 and 09/18/2016. FINDINGS: Cervical spine: There is no significant listhesis. The vertebral bodies are normal in height. There is degenerative endplate remodeling with osteophytosis primarily at C5-C6. There is facet arthropathy at all levels. There is no suspicious osseous lesion. There is moderate mucosal thickening involving the left aspect of the sphenoid sinus and left sphenoid sinus wall thickening due to chronic sinusitis. The mastoid air cells are clear. There is no neck lymphadenopathy. The airways midline. There is a tiny cyst or nodule within the right thyroid lobe, likely benign based on size. At C2-C3, there is moderate facet arthropathy. There is mild left foraminal stenosis. At C3-C4, there is moderate right greater than left facet arthropathy. There is moderate right and mild left foraminal stenosis. At C4-C5, there is a disc bulge and endplate line. There is mild right and severe left facet arthropathy. There is no stenosis. At C5-C6, there is a posterior central disc protrusion and osteophyte complex superimposed on a disc bulge and endplate remodeling. There is mild right and moderate left facet arthropathy. There is moderate left foraminal stenosis. At C6-C7, there is a disc bulge with left paracentral disc osteophyte complex. There is mild facet arthropathy. There is no stenosis. Thoracic spine: There is a severe anterior wedge compression deformity of T7. This is chronic in appearance. There is some mild chronic anterior wedge compression fracture of T6. There are minimal to mild compression fractures with superior endplate Schmorl's nodes at T11, T12, and T2. There is a minimal superior endplate depression at T9. There is degenerative endplate remodeling and osteophytosis at all levels. There is facet arthropathy at all levels. There is bone demineralization. There is a large hemangioma within T9. There is no suspicious osseous lesion. There are several healed rib fractures. No acute rib fracture is seen. There is posterior dependent and basilar atelectasis. There is no pleural effusion or pneumothorax. There is cardiomegaly. There is no lymphadenopathy. At T6-T7, there is a right paracentral to foraminal disc osteophyte complex. There is ossification of the ligamentum flavum flavum. There is mild right foraminal stenosis. There is mild central canal stenosis. At T10-T11, there is a large left paracentral to lateral recess endplate osteophyte. This results in mild left foraminal stenosis and mild central canal stenosis with effacement of the left lateral recess. At T11-T12, there is severe facet arthropathy and ossification along the ligamentum flavum. There is severe right foraminal stenosis. There is moderate to severe central canal stenosis. At T12-L1, there is severe left facet arthropathy with ossification along the left aspect of the ligamentum flavum. There is mild central canal stenosis. There are additional disc bulges with endplate remodeling at multiple additional levels. Lumbar spine: There are moderate L5 and mild L4 compression fractures with superimposed endplate Schmorl's nodes. These are chronic in appearance. There is mild scoliosis. There is bone demineralization. There is no suspicious osseous lesion. There is an IVC filter in expected position. The sacroiliac joints are intact. At L1-L2, there is a disc bulge. There is no stenosis. At L2-L3, there is a disc bulge. There is no stenosis. At L3-L4, there is a disc bulge. There is mild facet arthropathy. There is no stenosis. At L4-L5, there is a disc bulge and endplate osteophytosis. There is mild bilateral facet arthropathy. There is hypertrophy of the ligamentum flavum. There is epidural lipomatosis. There is moderate bilateral foraminal stenosis. There is moderate central canal stenosis. At L5-S1, there is a disc bulge and endplate remodeling. There is severe right facet arthropathy. There is mild right foraminal stenosis. IMPRESSION: 1. Multiple chronic appearing compression fractures throughout the thoracic and lumbar spine, described in detail above. No convincing acute or subacute fracture is seen. MRI may be useful if there is continuing clinical concern. 2. Bone demineralization. 3. Multilevel degenerative change throughout the cervical, thoracic and lumbar spine, resulting in stenosis of the aforementioned levels. Electronically signed by: Vanessa Marvin MD (07/19/2017 5:30 PM) [facility]
[2017-07-19] MEDS: LACTULOSE 20 GM/30 ML SOLUTION. PO SCH ×2 (17:34→21:34)
[2017-07-19] MEDS ORDERED: ALBUTEROL SULFATE 8GM INHALER. IH PRN (17:45)
[2017-07-19] MEDS ORDERED: METHYL SALICYLATE/MENTHOL TOPICAL OINTMENT 29GM TUBE. TP PRN (17:45)
[2017-07-19] MEDS ORDERED: ALBUTEROL SULFATE 2.5 MG/3 ML NEBU. NEB PRN (17:45)
[2017-07-19] MEDS ORDERED: IPRATRPIUM/ALBUTEROL 0.5/2.5MG 3 ML NEBU. ONE (17:58)
[2017-07-19] MEDS ORDERED: MECLIZINE 12.5 MG TABLET. PO PRN (18:00)
[2017-07-19] MEDS ORDERED: diazePAM 5 MG TABLET PO SCH ×2 (18:00→21:00)
[2017-07-19] MEDS ORDERED: ASPI325T8 PO (19:35)
[2017-07-19] MEDS ORDERED: ALBU2.5V5 NEB (19:35)
[2017-07-19] MEDS ORDERED: RIFA550T4 PO (19:35)
[2017-07-19] MEDS ORDERED: DIAZ5TAB4 PO (19:35)
[2017-07-19] MEDS: BUDESONIDE 0.5 MG/2 ML NEBU NEB SCH (20:00)
[2017-07-19] MEDS ORDERED: ASPIRIN 325 MG TABLET PO PRN (20:15)
[2017-07-19] MEDS: IPRATRPIUM/ALBUTEROL 0.5/2.5MG 3 ML NEBU. NEB SCH (20:30)
[2017-07-19] MEDS ORDERED: diazePAM 2 MG TABLET PO SCH (21:00)
[2017-07-19] MEDS ORDERED: HYDROCORTISONE 2.5% TOPICAL CREAM 30GM TUBE. TP SCH (21:00)
[2017-07-19] MEDS: diazePAM 5 MG TABLET PO SCH (21:00)
[2017-07-19] MEDS ORDERED: EZETIMIBE 10 MG TABLET PO SCH (21:00)
[2017-07-19] MEDS ORDERED: AZELASTINE NASAL SPRAY 30ML BOTTLE. NS PRN ×2 (21:00→21:15)
[2017-07-19] MEDS ORDERED: ALBUTEROL SULFATE 2.5 MG/3 ML NEBU. NEB SCH (21:00)
[2017-07-19] MEDS ORDERED: LACTULOSE 20 GM PO SCH (21:00)
[2017-07-19 21:06] VITALS: BP 108/63
[2017-07-19] MEDS: LACTOBACILLUS RHAMNOSUS GG 1 CAPSULE. PO SCH (21:30)
[2017-07-19] MEDS: MONTELUKAST 10 MG TABLET. PO SCH (21:31)
[2017-07-19] MEDS: GABAPENTIN 300 MG CAPSULE. PO SCH (21:31)
[2017-07-19] MEDS: ACETAMINOPHEN 325 MG TABLET PO PRN (21:31)
[2017-07-19] MEDS: POTASSIUM CHLORIDE 20 MEQ TABLET.ER. PO SCH (21:31)
[2017-07-19] MEDS: rifAXIMin 550 MG TABLET PO SCH (21:32)
[2017-07-19] MEDS: PHENYTOIN SODIUM EXTENDED 100 MG CAPSULE PO SCH (21:32)
[2017-07-19] MEDS: QUEtiapine 25 MG TABLET. PO SCH (21:33)
[2017-07-19] MEDS: PRIMIDONE 250 MG TABLET PO SCH (21:33)
--- NOTE | 2017-07-19 21:39 | HP ---
ADMIT DATE: 07/19/2017 HISTORY OF PRESENT ILLNESS: This is a 66-year-old female with chronic liver disease, increased confusion, somnolence since yesterday. The patient's ammonia level was continually gone up into the 90s. She is becoming increasingly confused, disoriented. The patient has also been seen by her psychiatrist in the past and being weaned off Valium. In any case, the patient has been falling asleep. She has change in mental status and has ANTUNEZ. The patient was admitted for further evaluation and treatment. She has been as noted tried to get down to [facility] to a GI clinic to deal with this situation. PAST MEDICAL HISTORY: Cataract surgery, essential tremors, seizures, peripheral neuropathy, numbness, hypercholesterolemia, respiratory disorder, on BiPAP, bronchitis, [place] filter, 3 liters of oxygen, continuous BiPAP at times, appendectomy, cholecystectomy, irritable bowel syndrome, obesity, hysterectomy, , incontinence, fibromyalgia, osteoarthritis, osteoporosis, tendinitis of the right shoulder, replacement of the right knee, depression, anxiety, previous suicide attempt, behavior problems. She has also had a history of melanoma of the skin in 1995 and 2014, clotting problems and had DVT. She is up for tetanus diphtheria vaccine. Otherwise, her influenza and pneumococcal vaccines are up-to-date. FAMILY HISTORY: Father and mother both had cardiovascular disease. SOCIAL HISTORY: No smoking, alcohol or drug use. Lives at home, has a very attentive . MEDICATIONS: Include Xifaxan 1 tablet p.o. b.i.d., DuoNeb treatments, albuterol inhaler p.r.n., Zetia 10 mg, aspirin 81 and aspirin 325, methyl salicylate analgesic balm, hydrocodone ____ p.r.n., primidone 50, Dilantin 100, gabapentin 300 q.i.d., Cymbalta 20 mg daily, Seroquel 25 mg, 75 at bedtime, diazepam 5, lactulose 10 four times a day, potassium chloride 20 mEq t.i.d., furosemide 80 mg a day, fluticasone, Singulair 10 mg daily, Astepro nasal spray, Amitiza 24 mcg daily, meclizine 25 mg q. 8 hours p.r.n., Protonix 40, metformin 500 mg. ALLERGIES: PENICILLIN, ____, LOVENOX, SODIUM, AND ERYTHROMYCIN BASIS. REVIEW OF SYSTEMS: The patient is too groggy really to give any type of intelligent conversation. She falls asleep very easily. PHYSICAL EXAMINATION: GENERAL: This is a very sedate individual. VITAL SIGNS: Blood pressure 120/65, respiratory rate 20, pulse 99, afebrile, 91% oxygen saturation on room air. HEENT: The patient's head is atraumatic, normocephalic but the patient is somewhat lethargic as noted. Eyes are PERRL reactive to light. Mouth and throat were normal. Dry mucous membranes. NECK: Supple, no JVD or thyromegaly. LUNGS: Diminished throughout, but clear. CARDIOVASCULAR: Regular sinus rhythm, S1, S2, without murmur, rub, thrill, or extra heart sound. ABDOMEN: Protuberant, soft, nontender, no rebound or guarding. Positive bowel sounds, no hepatosplenomegaly. EXTREMITIES: No clubbing, cyanosis or edema. NEUROLOGIC: The patient was arousable and alert at times and then fell back into a deep slumber. LABORATORY DATA: The patient's CBC was all unremarkable. The patient's ammonia level was 97, creatinine 1.1. Liver enzymes were basically normal except for an elevated alkaline phosphatase probably related to her arthritis. The patient has been worked up before for hepatitis, CT scans, and abdominal ultrasounds have been performed on this patient. IMPRESSION: Change in mental status, encephalopathy secondary to elevated ammonia levels, ANTUNEZ, morbid obesity, type 2 diabetes, chronic obstructive pulmonary disease, sleep apnea, neuropathy, clotting disorders, unsteady gait, history of melanoma, osteoporosis, severe depression, severe psychiatric issues. The patient will be admitted, monitored carefully, make further evaluation on her, we are trying to get those ammonia levels down daily. SCOOTER HOPKINS MD DR: NGOZI/elisa JOB#: [id number] / [id number]
[2017-07-19 22:36] VITALS: BP 97/62
[2017-07-20] MEDS: IPRATRPIUM/ALBUTEROL 0.5/2.5MG 3 ML NEBU. NEB SCH ×4 (05:33→20:39)
[2017-07-20] MEDS: ACETAMINOPHEN 325 MG TABLET PO PRN (05:48)
[2017-07-20 05:55] VITALS: BP 112/65
[2017-07-20] MEDS ORDERED: LUBIPROSTONE 24 MCG CAPSULE PO PRN (08:00)
[2017-07-20] MEDS ORDERED: LUBIPROSTONE 24 MCG CAPSULE PO SCH (08:00)
[2017-07-20] MEDS: LACTOBACILLUS RHAMNOSUS GG 1 CAPSULE. PO SCH ×3 (08:34→21:46)
[2017-07-20] MEDS: GABAPENTIN 300 MG CAPSULE. PO SCH ×4 (08:34→21:46)
[2017-07-20] MEDS: POTASSIUM CHLORIDE 20 MEQ TABLET.ER. PO SCH ×3 (08:35→21:46)
[2017-07-20] MEDS: DULoxetine HCL 20 MG CAPSULE.DR PO SCH (08:35)
[2017-07-20] MEDS: FUROSEMIDE 80 MG TABLET PO SCH (08:35)
[2017-07-20] MEDS: metFORMIN 500 MG TABLET PO SCH ×2 (08:36→17:02)
[2017-07-20] MEDS: PANTOPRAZOLE 40 MG TABLET. PO SCH (08:36)
[2017-07-20] MEDS: ASPIRIN 81 MG TAB.CHEW PO SCH (08:36)
[2017-07-20] MEDS: PRIMIDONE 250 MG TABLET PO SCH ×4 (08:37→21:47)
[2017-07-20] MEDS: rifAXIMin 550 MG TABLET PO SCH ×2 (08:38→21:46)
[2017-07-20] MEDS ORDERED: NON FORMULARY ITEM (Fluticasone/Umeclidin/Vilanter (Trelegy Ellipta 100-62.5-25) 1 EACH) IH SCH (09:00)
[2017-07-20] MEDS ORDERED: DULoxetine HCL 30 MG CAPSULE.DR PO SCH (09:00)
[2017-07-20] MEDS ORDERED: diazePAM 5 MG TABLET PO SCH (09:00)
[2017-07-20 10:35] LABS: BASO % 1 % (0-3); EOS # 0.2 x10^3/uL (0.0-0.7); EOS % 5 % (0-3); HEMATOCRIT 36.8 % (36.0-47.0); HEMOGLOBIN 12.9 g/dL (12.0-15.5); LYMPH # 1.4 x10^3/uL (1.0-4.8); LYMPH % 37 % (24-48); MEAN CORPUSCULAR HEMOGLOBIN 32 pg (25-35); MEAN CORPUSCULAR HGB CONC 35 g/dL (31-37); MEAN CORPUSCULAR VOLUME 91 fL (79-100); MONO # 0.4 x10^3/uL (0.0-1.1); MONO % 10 % (0-9); NEUT # 1.9 x10^3uL (1.8-7.7); NEUT % 48 % (31-73); PLATELET COUNT 148 x10^3/uL (140-400); RED BLOOD COUNT 4.07 x10^6/uL (3.50-5.40); RED CELL DISTRIBUTION WIDTH 16.4 % (11.5-14.5); WHITE BLOOD COUNT 3.9 x10^3/uL (4.0-11.0)
[2017-07-20 10:44] VITALS: BP 98/62
[2017-07-20 10:53] LABS: ALBUMIN 3.6 g/dL (3.4-5.0); ALBUMIN/GLOBULIN RATIO 0.8 (1.0-1.7); CALCIUM 8.5 mg/dL (8.5-10.1); CREATININE 0.8 mg/dL (0.6-1.0); GFR 71.8; POTASSIUM 3.5 mmol/L (3.5-5.1); TOTAL BILIRUBIN 0.4 mg/dL (0.2-1.0); TOTAL PROTEIN 7.9 g/dL (6.4-8.2)
[2017-07-20] MEDS: LACTULOSE 20 GM/30 ML SOLUTION. PO SCH ×4 (11:09→21:48)
[2017-07-20] MEDS ORDERED: BISACODYL 10 MG SUPP.RECT PR ONE (11:30)
[2017-07-20] MEDS: BETHANECHOL CHLORIDE 10 MG TABLET PO SCH ×2 (11:38→17:02)
[2017-07-20] MEDS: BUDESONIDE 0.5 MG/2 ML NEBU NEB SCH ×2 (12:21→20:39)
[2017-07-20] MEDS: HEPARIN PF for SUB-Q USE 5,000 UNIT/0.5 ML VIAL. SQ SCH ×2 (13:20→21:48)
[2017-07-20 14:00] VITALS: BP 111/61
[2017-07-20] MEDS: ACARBOSE 50 MG TABLET PO SCH ×2 (15:04→17:03)
[2017-07-20 19:50] VITALS: BP 118/83
[2017-07-20] MEDS: diazePAM 5 MG TABLET PO SCH (21:00)
[2017-07-20] MEDS: QUEtiapine 25 MG TABLET. PO SCH (21:46)
[2017-07-20] MEDS: PHENYTOIN SODIUM EXTENDED 100 MG CAPSULE PO SCH (21:46)
[2017-07-20] MEDS: MONTELUKAST 10 MG TABLET. PO SCH (21:47)
--- NOTE | 2017-07-21 03:50 | PN ---
DATE: 07/20/2017 SUBJECTIVE: The patient was admitted with hepatic encephalopathy, stage 3. The patient is still fairly comatose, although she is alert, at times sleeping, but arousable and was able to take medication, put her on a low protein diet, adjusted some of her other medications to help save as this would help her in getting down her ammonia levels and in turn get her more alert. Discussed with family, they are in agreement at this time. Otherwise, as noted, the patient is very somnolent, but arousable. PHYSICAL EXAMINATION: VITAL SIGNS: Blood pressure 98/62, respiratory 18, pulse 76, afebrile. LUNGS: The patient's lungs are diminished, but clear. CARDIOVASCULAR: Stable. ABDOMEN: Soft, nontender, no rebounding or guarding. EXTREMITIES: No clubbing, cyanosis, trace edema noted. The patient's chest x-ray was basically unremarkable, otherwise. LABORATORY DATA: Basically unchanged on her labs. PLAN: The patient to continue on present regimen of lactulose, Xifaxan, and may add a couple other medications to see if this will help her and put her on some probiotics and make further evaluation. IMPRESSION: Hepatic encephalopathy, grade 3, and make further evaluation as indicated. SCOOTER HOPKINS MD DR: NGOZI/elisa JOB#: [id number] / [id number]
[2017-07-21] MEDS: HEPARIN PF for SUB-Q USE 5,000 UNIT/0.5 ML VIAL. SQ SCH ×3 (05:29→21:58)
[2017-07-21 05:33] VITALS: BP 135/75
[2017-07-21] MEDS: IPRATRPIUM/ALBUTEROL 0.5/2.5MG 3 ML NEBU. NEB SCH ×4 (05:41→21:05)
[2017-07-21 07:29] LABS: BASO # 0.1 x10^3/uL (0.0-0.2); BASO % 1 % (0-3); EOS # 0.2 x10^3/uL (0.0-0.7); EOS % 4 % (0-3); HEMATOCRIT 37.5 % (36.0-47.0); HEMOGLOBIN 13.1 g/dL (12.0-15.5); LYMPH # 1.9 x10^3/uL (1.0-4.8); LYMPH % 34 % (24-48); MEAN CORPUSCULAR HEMOGLOBIN 32 pg (25-35); MEAN CORPUSCULAR HGB CONC 35 g/dL (31-37); MEAN CORPUSCULAR VOLUME 91 fL (79-100); MONO # 0.6 x10^3/uL (0.0-1.1); MONO % 11 % (0-9); NEUT # 2.9 x10^3uL (1.8-7.7); NEUT % 51 % (31-73); PLATELET COUNT 160 x10^3/uL (140-400); RED CELL DISTRIBUTION WIDTH 16.4 % (11.5-14.5); WHITE BLOOD COUNT 5.7 x10^3/uL (4.0-11.0)
[2017-07-21 07:32] LABS: CREATININE 1.1 mg/dL (0.6-1.0); GFR 49.7; POTASSIUM 3.8 mmol/L (3.5-5.1)
[2017-07-21] MEDS: PRIMIDONE 250 MG TABLET PO SCH ×4 (08:44→21:55)
[2017-07-21] MEDS: rifAXIMin 550 MG TABLET PO SCH ×2 (08:45→21:57)
[2017-07-21] MEDS: DULoxetine HCL 20 MG CAPSULE.DR PO SCH (08:45)
[2017-07-21] MEDS: BETHANECHOL CHLORIDE 10 MG TABLET PO SCH ×3 (08:46→17:11)
[2017-07-21] MEDS: POTASSIUM CHLORIDE 20 MEQ TABLET.ER. PO SCH ×3 (08:46→21:48)
[2017-07-21] MEDS: ACARBOSE 50 MG TABLET PO SCH ×3 (08:46→17:11)
[2017-07-21] MEDS: metFORMIN 500 MG TABLET PO SCH ×2 (08:47→17:11)
[2017-07-21] MEDS: LACTOBACILLUS RHAMNOSUS GG 1 CAPSULE. PO SCH ×4 (08:47→21:47)
[2017-07-21] MEDS: FUROSEMIDE 80 MG TABLET PO SCH (08:47)
[2017-07-21] MEDS: GABAPENTIN 300 MG CAPSULE. PO SCH ×4 (08:47→21:57)
[2017-07-21] MEDS: ASPIRIN 81 MG TAB.CHEW PO SCH (08:47)
[2017-07-21] MEDS: PANTOPRAZOLE 40 MG TABLET. PO SCH (08:47)
[2017-07-21 10:45] VITALS: BP 118/75
[2017-07-21] MEDS: BUDESONIDE 0.5 MG/2 ML NEBU NEB SCH ×2 (11:50→21:06)
[2017-07-21] MEDS: LACTULOSE 20 GM/30 ML SOLUTION. PO SCH ×4 (13:00→21:54)
[2017-07-21 15:10] VITALS: BP 96/65
[2017-07-21 20:00] VITALS: BP 102/59
[2017-07-21] MEDS: PHENYTOIN SODIUM EXTENDED 100 MG CAPSULE PO SCH (21:48)
[2017-07-21] MEDS: MONTELUKAST 10 MG TABLET. PO SCH (21:57)
[2017-07-21] MEDS: diazePAM 5 MG TABLET PO SCH (21:57)
[2017-07-21] MEDS: QUEtiapine 25 MG TABLET. PO SCH (21:58)
[2017-07-21] MEDS: ACETAMINOPHEN 325 MG TABLET PO PRN (22:08)
[2017-07-21 23:00] VITALS: BP_SYST 104; BP_SYST 118; BP_DIAS 51; BP_DIAS 62
--- NOTE | 2017-07-22 01:40 | PN ---
DATE: 07/21/2017 SUBJECTIVE: The patient in room #105 with hepatic encephalopathy. The patient is doing much better today. She is more alert. OBJECTIVE: VITAL SIGNS: Blood pressure 135/75, respiratory rate 20, pulse 90 and afebrile. The patient otherwise as described above. GENERAL: The patient is alert and oriented. Still a little slow, but much improved. LUNGS: Diminished, but clear. CARDIOVASCULAR: Regular sinus rhythm, but tachycardic. ABDOMEN: Soft, protuberant and nontender. EXTREMITIES: No clubbing, cyanosis, or edema. The patient is on 3 liters per nasal cannula. NEUROLOGIC: The patient neurologically is noted much more alert. LABORATORY DATA: The patient's ammonia level pending from this morning. CBC was normal. Electrolytes look basically good. BUN and creatinine 13 and 1.1. Her liver enzymes have been normal. Blood sugars are being monitored. IMPRESSION: Therefore, hepatic encephalopathy grade 3, change of mental status, morbid obesity, type 2 diabetes, chronic obstructive pulmonary disease, sleep apnea, neuropathy, clotting disorders, unsteady gait, history of melanoma, osteoporosis, severe depression and severe psychiatric issues as well. PLAN: To continue on present drug regimen, which has been adjusted and seems to be making good progress overall. SCOOTER HOPKINS MD DR: NGOZI/elisa JOB#: [id number] / [id number]
[2017-07-22 04:05] VITALS: BP 111/71
[2017-07-22] MEDS: IPRATRPIUM/ALBUTEROL 0.5/2.5MG 3 ML NEBU. NEB SCH ×4 (05:12→21:21)
[2017-07-22] MEDS: HEPARIN PF for SUB-Q USE 5,000 UNIT/0.5 ML VIAL. SQ SCH ×3 (05:58→21:14)
[2017-07-22 06:28] VITALS: BP 89/53
[2017-07-22] MEDS: BUDESONIDE 0.5 MG/2 ML NEBU NEB SCH ×2 (08:00→21:21)
[2017-07-22] MEDS: PANTOPRAZOLE 40 MG TABLET. PO SCH (08:02)
[2017-07-22] MEDS: BETHANECHOL CHLORIDE 10 MG TABLET PO SCH ×3 (08:02→17:18)
[2017-07-22] MEDS: LACTULOSE 20 GM/30 ML SOLUTION. PO SCH ×4 (08:45→21:05)
[2017-07-22] MEDS: LACTOBACILLUS RHAMNOSUS GG 1 CAPSULE. PO SCH ×3 (08:52→21:06)
[2017-07-22] MEDS: rifAXIMin 550 MG TABLET PO SCH ×2 (08:56→21:07)
[2017-07-22] MEDS: ACARBOSE 50 MG TABLET PO SCH ×3 (08:56→17:18)
[2017-07-22] MEDS: DULoxetine HCL 20 MG CAPSULE.DR PO SCH (08:56)
[2017-07-22] MEDS: GABAPENTIN 300 MG CAPSULE. PO SCH ×4 (08:56→21:07)
[2017-07-22] MEDS: metFORMIN 500 MG TABLET PO SCH ×2 (08:56→17:18)
[2017-07-22] MEDS: ASPIRIN 81 MG TAB.CHEW PO SCH (08:57)
[2017-07-22] MEDS: FUROSEMIDE 80 MG TABLET PO SCH (08:57)
[2017-07-22] MEDS: POTASSIUM CHLORIDE 20 MEQ TABLET.ER. PO SCH ×3 (08:57→21:07)
[2017-07-22] MEDS: PRIMIDONE 250 MG TABLET PO SCH ×4 (09:00→21:08)
[2017-07-22 10:40] VITALS: BP 115/74
[2017-07-22 15:18] VITALS: BP 112/70
[2017-07-22 19:34] VITALS: BP 107/66
[2017-07-22] MEDS: NYSTATIN TOPICAL POWDER 15GM BOTTLE. TP SCH (21:05)
[2017-07-22] MEDS: MONTELUKAST 10 MG TABLET. PO SCH (21:06)
[2017-07-22] MEDS: PHENYTOIN SODIUM EXTENDED 100 MG CAPSULE PO SCH (21:06)
[2017-07-22] MEDS: ACETAMINOPHEN 325 MG TABLET PO PRN (21:07)
[2017-07-22] MEDS: QUEtiapine 25 MG TABLET. PO SCH (21:07)
[2017-07-22] MEDS: diazePAM 5 MG TABLET PO SCH (21:07)
[2017-07-22] MEDS: HYDROcodone/APAP 7.5/325MG 1 TAB TABLET PO PRN (22:40)
[2017-07-22 23:00] VITALS: BP 121/54
[2017-07-23] MEDS: HYDROcodone/APAP 7.5/325MG 1 TAB TABLET PO PRN (05:17)
[2017-07-23] MEDS: HEPARIN PF for SUB-Q USE 5,000 UNIT/0.5 ML VIAL. SQ SCH (05:22)
[2017-07-23] MEDS: IPRATRPIUM/ALBUTEROL 0.5/2.5MG 3 ML NEBU. NEB SCH ×2 (05:54→11:18)
[2017-07-23 06:01] VITALS: BP 110/68
--- NOTE | 2017-07-23 06:50 | PN ---
DATE: SUBJECTIVE: The patient is doing much better overall making better progress, still very weak, still receiving PT, OT. The patient's labs show ammonia level for whatever reason shot up to 61, it was down as low as 34, not sure if it her diet or what, but having markedly isolation. She still has some slurring of words, but she is markedly improved and will continue with rehab on her and low protein diet. PHYSICAL EXAMINATION: VITAL SIGNS: Include blood pressure 112/70, respiratory rate 20, pulse 90, afebrile. GENERAL: The patient is alert and oriented, still some garbling of her speech. LUNGS: Clear. CARDIOVASCULAR: Regular sinus rhythm. ABDOMEN: Soft, nontender. IMPRESSION: Hepatic encephalopathy, grade 3 change of mental status, morbid obesity, type 2 diabetes, chronic obstructive pulmonary disease, sleep apnea, neuropathy, clotting disorders, unsteady gait, so forth. We will continue with present drug regimen and physical and occupational therapy and hopefully get her ready for discharge in the a.m. SCOOTER HOPKINS MD DR: NGOZI/elisa JOB#: [id number] / [id number]
[2017-07-23] MEDS: BUDESONIDE 0.5 MG/2 ML NEBU NEB SCH (08:00)
[2017-07-23] MEDS: ASPIRIN 81 MG TAB.CHEW PO SCH (08:39)
[2017-07-23] MEDS: LACTOBACILLUS RHAMNOSUS GG 1 CAPSULE. PO SCH (08:39)
[2017-07-23] MEDS: DULoxetine HCL 20 MG CAPSULE.DR PO SCH (08:39)
[2017-07-23] MEDS: metFORMIN 500 MG TABLET PO SCH (08:39)
[2017-07-23] MEDS: FUROSEMIDE 80 MG TABLET PO SCH (08:39)
[2017-07-23] MEDS: GABAPENTIN 300 MG CAPSULE. PO SCH (08:39)
[2017-07-23] MEDS: PANTOPRAZOLE 40 MG TABLET. PO SCH (08:39)
[2017-07-23] MEDS: rifAXIMin 550 MG TABLET PO SCH (08:40)
[2017-07-23] MEDS: BETHANECHOL CHLORIDE 10 MG TABLET PO SCH ×2 (08:40→11:58)
[2017-07-23] MEDS: POTASSIUM CHLORIDE 20 MEQ TABLET.ER. PO SCH (08:40)
[2017-07-23] MEDS: NYSTATIN TOPICAL POWDER 15GM BOTTLE. TP SCH (08:42)
[2017-07-23] MEDS: PRIMIDONE 250 MG TABLET PO SCH (08:42)
[2017-07-23] MEDS: ACARBOSE 50 MG TABLET PO SCH (08:42)
[2017-07-23] MEDS: LACTULOSE 20 GM/30 ML SOLUTION. PO SCH (08:47)
[2017-07-23 09:11] LABS: BASO % 0 % (0-3); EOS # 0.2 x10^3/uL (0.0-0.7); EOS % 6 % (0-3); HEMATOCRIT 34.1 % (36.0-47.0); HEMOGLOBIN 11.7 g/dL (12.0-15.5); LYMPH # 1.7 x10^3/uL (1.0-4.8); LYMPH % 41 % (24-48); MEAN CORPUSCULAR HEMOGLOBIN 32 pg (25-35); MEAN CORPUSCULAR HGB CONC 34 g/dL (31-37); MEAN CORPUSCULAR VOLUME 92 fL (79-100); MONO # 0.4 x10^3/uL (0.0-1.1); MONO % 10 % (0-9); NEUT # 1.8 x10^3uL (1.8-7.7); NEUT % 43 % (31-73); PLATELET COUNT 132 x10^3/uL (140-400); RED BLOOD COUNT 3.71 x10^6/uL (3.50-5.40); RED CELL DISTRIBUTION WIDTH 16.5 % (11.5-14.5); WHITE BLOOD COUNT 4.1 x10^3/uL (4.0-11.0)
[2017-07-23 09:16] LABS: CALCIUM 8.9 mg/dL (8.5-10.1); GFR 55.5; POTASSIUM 3.5 mmol/L (3.5-5.1)
--- NOTE | 2017-07-23 09:55 | DS ---
DATE OF DISCHARGE: 07/23/2017 HOSPITAL COURSE: The patient is a 66-year-old female, long history of ANTUNEZ and the patient had an elevated ammonia level, became increasingly lethargic and basically unresponsive. She had hepatic encephalopathy. The patient was treated with a variety of medications. She [facility] too distant [facility]; however, because of her change in mental status she was admitted and placed on fluids and adjusted some of her medications to bring down her ammonia level. The patient made relatively good progress overall. Her last ammonia level was down to 27. She has been placed on a low protein diet and she will continue to be monitored as an outpatient. IMPRESSION: Therefore, 1. Hepatic encephalopathy, grade 3. 2. Change in mental status. 3. Morbid obesity. 4. Type 2 diabetes. 5. Chronic obstructive pulmonary disease. 6. Sleep apnea. 7. Neuropathy. 8. Clotting disorders. 9. Unsteady gait. 10. History of melanoma. 11. Osteoporosis. 12. Severe depression. 13. Severe psychiatric issues. PLAN: The patient will continue on a low protein diet, decreased activity and follow down there at . She has home health following her as well. SCOOTER HOPKINS MD DR: NGOZI/elisa JOB#: [id number] / [id number]
[2017-07-23] MEDS ORDERED: NYST60PO TP (10:59)
[2017-07-23] MEDS ORDERED: ONDA4TAB12 PO (10:59)
[2017-07-23] MEDS ORDERED: BETH10TA PO (10:59)
== END 2017-07-23 12:05 | disposition home health service (06) | DRG 443 ==
LOC: ER 13:43 → 1 SOUTH 16:12
PROVIDERS: ADMIT Family Medicine; ATTEND Family Medicine
DX: K72.90 Hepatic failure, unspecified without coma (principal); E66.01 Morbid (severe) obesity due to excess calories; J44.9 Chronic obstructive pulmonary disease, unspecified; G62.9 Polyneuropathy, unspecified; E78.00 Pure hypercholesterolemia, unspecified; E11.9 Type 2 diabetes mellitus without complications; F32.9 Major depressive disorder, single episode, unspecified; G47.30 Sleep apnea, unspecified; M81.0 Age-related osteoporosis without current pathological fracture; M79.7 Fibromyalgia; R26.9 Unspecified abnormalities of gait and mobility; F41.9 Anxiety disorder, unspecified; M19.90 Unspecified osteoarthritis, unspecified site; Z88.1 Allergy status to other antibiotic agents; Z88.0 Allergy status to penicillin; Z88.2 Allergy status to sulfonamides; Z88.8 Allergy status to other drugs, medicaments and biological substances; Z79.899 Other long term (current) drug therapy; Z68.37 Body mass index [BMI] 37.0-37.9, adult; Z82.49 Family history of ischemic heart disease and other diseases of the circulatory system; Z85.820 Personal history of malignant melanoma of skin; Z90.49 Acquired absence of other specified parts of digestive tract; Z90.710 Acquired absence of both cervix and uterus; Z91.5 Personal history of self-harm; Z86.718 Personal history of other venous thrombosis and embolism
CPT/HCPCS: 36415; 51702; 70450; 71045; 72125; 72128; 72131; 80048; 80053; 81001; 82140; 82947; 84484; 85025; 93005; 94640; J7042; J7620; J7626; 99285-25

== ENCOUNTER 2017-08-17 13:38 | Inpatient (IN) | payer MEDICARE, BC ==
[~2017-08-17] VITALS: Ht 162.6 cm; Wt 88.7 kg
[~2017-08-17 13:38] MED LIST changes: +ASPI325T8 PO; +BETH10TA PO; +ONDA4TAB12 PO; +RIFA550T4 PO
[2017-08-17 14:20] VITALS: BP 121/75
[2017-08-17] MEDS ORDERED: LUBIPROSTONE 24 MCG CAPSULE PO PRN (15:45)
[2017-08-17] MEDS ORDERED: ASPIRIN 325 MG TABLET PO PRN (15:45)
[2017-08-17] MEDS: IV NORMAL SALINE 1,000ML 1,000 ML IV SCH (15:45)
[2017-08-17] MEDS ORDERED: AZELASTINE NASAL SPRAY 30ML BOTTLE. NS PRN (15:45)
[2017-08-17] MEDS ORDERED: METHYL SALICYLATE/MENTHOL TOPICAL OINTMENT 29GM TUBE. TP PRN (15:45)
[2017-08-17] MEDS ORDERED: ALBUTEROL SULFATE 8GM INHALER. IH PRN (15:45)
[2017-08-17] MEDS ORDERED: MECLIZINE 12.5 MG TABLET. PO PRN (15:45)
[2017-08-17] MEDS ORDERED: ACETAMINOPHEN 325 MG TABLET PO PRN (15:45)
[2017-08-17] MEDS: IPRATRPIUM/ALBUTEROL 0.5/2.5MG 3 ML NEBU. NEB SCH ×2 (15:47→20:26)
[2017-08-17 16:04] LABS: ALBUMIN 3.7 g/dL (3.4-5.0); ALBUMIN/GLOBULIN RATIO 0.8 (1.0-1.7); CALCIUM 8.7 mg/dL (8.5-10.1); CREATININE 1.2 mg/dL (0.6-1.0); GFR 44.8; TOTAL BILIRUBIN 0.5 mg/dL (0.2-1.0); TOTAL PROTEIN 8.4 g/dL (6.4-8.2)
[2017-08-17 16:06] LABS: POTASSIUM 2.8 mmol/L (3.5-5.1)
[2017-08-17] MEDS ORDERED: ALBUTEROL SULFATE 2.5 MG/3 ML NEBU. NEB PRN (16:15)
[2017-08-17] MEDS: ONDANSETRON ODT 4 MG TAB.RAPDIS PO PRN ×2 (16:20→21:54)
[2017-08-17] MEDS: HYDROcodone/APAP 7.5/325MG 1 TAB TABLET PO PRN (16:20)
[2017-08-17] MEDS: POTASSIUM CHLORIDE 20 MEQ/15 ML ORAL LIQUID. FT SCH ×2 (16:30→20:30)
[2017-08-17] MEDS: BETHANECHOL CHLORIDE 10 MG TABLET PO SCH (16:30)
[2017-08-17] MEDS: LACTULOSE 20 GM/30 ML SOLUTION. PO SCH ×2 (17:00→21:00)
[2017-08-17] MEDS ORDERED: GABAPENTIN 300 MG CAPSULE. PO SCH (17:00)
[2017-08-17] MEDS: PRIMIDONE 250 MG TABLET PO SCH ×2 (17:00→21:00)
[2017-08-17] MEDS ORDERED: ALBUTEROL SULFATE 2.5 MG/3 ML NEBU. NEB SCH (17:00)
[2017-08-17] MEDS: metFORMIN 500 MG TABLET PO SCH (17:00)
[2017-08-17] MEDS: HYDROmorphone PF 2 MG/ML VIAL IV PRN ×2 (18:31→23:38)
--- NOTE | 2017-08-17 19:19 | PDOC ---
Exam Note: Morales Note: Please also refer to the separate dictated note~for this date of service dictated separately.~Patient seen individually. Discussed the patient with Nursing staff reviewed the chart.~Reviewed interim history and current functioning. Reviewed vital signs,~Labs/ Radiology~and current medications noted below. Continue current treatment with the changes noted in the dictated addendum note Assessment: Vital Signs: Vital Signs Date Time Temp Pulse Resp B/P (MAP) Pulse Ox O2 Delivery O2 Flow Rate FiO2 08/17/17 16:48 Nasal Cannula 2.0 08/17/17 14:20 98.3 99 20 121/75 (90) 93 Labs: Laboratory Tests Test 08/17/17 15:35 Sodium Level 137 mmol/L (136-145) Potassium Level 2.8 mmol/L (3.5-5.1) *L Chloride Level 95 mmol/L (98-107) L Carbon Dioxide Level 28 mmol/L (21-32) Anion Gap 14 (6-14) Blood Urea Nitrogen 16 mg/dL (7-20) Creatinine 1.2 mg/dL (0.6-1.0) H Estimated GFR (Cockcroft-Gault) 44.8 BUN/Creatinine Ratio 13 (6-20) Glucose Level 100 mg/dL (70-99) H Calcium Level 8.7 mg/dL (8.5-10.1) Total Bilirubin 0.5 mg/dL (0.2-1.0) Aspartate Amino Transferase (AST) 50 U/L (15-37) H Alanine Aminotransferase (ALT) 38 U/L (14-59) Alkaline Phosphatase 222 U/L (46-116) H Total Protein 8.4 g/dL (6.4-8.2) H Albumin 3.7 g/dL (3.4-5.0) Albumin/Globulin Ratio 0.8 (1.0-1.7) L Current Medications: Meds: Current Medications Acetaminophen (Tylenol) 650 mg PRN Q6HRS PRN PO PAIN / TEMP; Start 08/17/17 at 15:45; Stop 08/17/17 at 17:22; Status DC Albuterol Sulfate (Ventolin) 2.5 mg QID NEB ; Start 08/17/17 at 17:00; Stop at 17:00; Status DC Albuterol Sulfate (Ventolin Hfa) 1 puff PRN QID PRN IH SHORTNESS OF BREATH; Start 08/17/17 at 15:45; Status UNV Aspirin (Gabbi Aspirin) 325 mg PRN Q6HRS PRN PO PAIN; Start 08/17/17 at 15:45; Stop 08/17/17 at 17:22; Status DC Diazepam (Valium) 5 mg HS PO ; Start 08/17/17 at 21:00; Stop 08/17/17 at 21:00; Status DC Gabapentin (Neurontin) 300 mg QID PO ; Start 08/17/17 at 17:00; Stop 08/17/17 at 17:22; Status DC Acetaminophen/ Hydrocodone Bitart (Lortab 7.5/325) 1 tab PRN Q6HRS PRN PO PAIN Last administered on 08/17/17at 16:20; Start 08/17/17 at 15:45 Albuterol/ Ipratropium (Duoneb) 3 ml QID NEB ; Start 08/17/17 at 17:00 Lubiprostone (Amitiza) 24 mcg BIDWMEALS PRN PO CONSTIPATION; Start 08/17/17 at 15:45; Stop 08/17/17 at 17:22; Status DC Multi-Ingredient Ointment (Analgesic Dearing) 1 tosin PRN QID PRN TP MUSCLE PAIN; Start 08/17/17 at 15:45; Stop 08/17/17 at 17:22; Status DC Nystatin (Nystop) 1 tosin BID TP ; Start 08/17/17 at 21:00; Stop 08/17/17 at 21:00 ; Status DC Ondansetron HCl (Zofran Odt) 1 mg PRN Q4HRS PRN PO NAUSEA/VOMITING Last administered on 08/17/17at 16:20; Start 08/17/17 at 15:45 Potassium Chloride (Klor-Con) 20 meq TID PO ; Start 08/17/17 at 21:00; Stop at 21:00; Status DC Rifaximin (Xifaxan) 550 mg BID PO ; Start 08/17/17 at 21:00 Aspirin (Children'S Aspirin) 81 mg DAILY PO ; Start 08/18/17 at 09:00 Azelastine HCl (Astelin) 2 spray PRN BID PRN NS CONGESTION; Start 08/17/17 at 15:45 Bethanechol Chloride (Urecholine) 10 mg TIDAC PO ; Start 08/17/17 at 16:30 Duloxetine HCl (Cymbalta) 20 mg DAILY PO ; Start 08/18/17 at 09:00 Budesonide (Pulmicort) 0.5 mg RTBID NEB ; Start 08/17/17 at 20:00 Furosemide (Lasix) 80 mg DAILY PO ; Start 08/18/17 at 09:00 Lactulose (Lactulose) 20 gm QID PO ; Start 08/17/17 at 17:00 Meclizine HCl (Antivert) 25 mg PRN QID PRN PO DIZZINESS; Start 08/17/17 at 15: 45; Stop 08/17/17 at 17:22; Status DC Metformin HCl (Glucophage) 500 mg BIDWMEALS PO ; Start 08/17/17 at 17:00 Montelukast Sodium (Singulair) 10 mg QHS PO ; Start 08/17/17 at 21:00 Pantoprazole Sodium (Protonix) 40 mg DAILYAC PO ; Start 08/18/17 at 07:30 Phenytoin Sodium (Dilantin) 400 mg QHS PO ; Start 08/17/17 at 21:00 Primidone (Mysoline) 125 mg QID PO ; Start 08/17/17 at 17:00 Quetiapine Fumarate (SEROquel) 75 mg QHS PO ; Start 08/17/17 at 21:00; Stop at 21:00; Status DC Sodium Chloride 1,000 ml @ 75 mls/hr [id number] IV ; Start 08/17/17 at 15:45 Albuterol Sulfate (Ventolin) 2.5 mg QID PRN NEB SHORTNESS OF BREATH; Start at 16:15; Stop 08/17/17 at 17:22; Status DC Potassium Chloride (KCl Oral Soln) 40 meq Q4H FT ; Start 08/17/17 at 16:30; Stop 08/17/17 at 20:31 Potassium Chloride (Klor-Con) 20 meq BID PO ; Start 08/17/17 at 21:00 Hydromorphone HCl (Dilaudid) 2 mg PRN Q4HRS PRN IV PAIN Last administered on at 18:31; Start 08/17/17 at 18:15 Active Scripts Active Ondansetron Odt (Ondansetron) 4 Mg Tab.rapdis 4 Mg PO PRN Q4HRS PRN Bethanechol Chloride 10 Mg Tablet 10 Mg PO TIDAC Metformin Hcl 500 Mg Tablet 500 Mg PO BIDWMEALS 90 Days Reported Xifaxan (Rifaximin) 550 Mg Tablet 1 Tab PO BID LAST DOSE GIVEN: DATE: TODAY TIME: AM NEXT DOSE DUE: DATE: TODAY TIME: PM Cymbalta (Duloxetine Hcl) 20 Mg Capsule.dr 20 Mg PO DAILY LAST DOSE GIVEN: DATE:TODAY TIME: AM NEXT DOSE DUE: DATE: TOMORROW TIME: AM Duoneb 0.5-3(2.5) Mg/3 Ml (Albuterol/Ipratropium) 3 Ml Ampul.neb 3 Ml NEB QID LAST DOSE GIVEN: DATE: TODAY TIME: AM NEXT DOSE DUE: DATE: TODAY TIME: EARLY AFTERNOON Lactulose 10 Gm/15 Ml Solution 20 Gm PO QID LAST DOSE GIVEN: DATE: TODAY TIME: AM NEXT DOSE DUE: DATE: TODAY TIME: EARLY AFTERNOON Trelegy Ellipta 100-62.5-25 (Fluticasone/Umeclidin/Vilanter) 1 Each Blst.w.dev 1 Each IH DAILY NOT GIVEN IN THE HOSPITAL NEXT DOSE DUE: DATE: RESTART TODAY TIME: WHEN YOU GET HOME Primidone 50 Mg Tablet 125 Mg PO QID LAST DOSE GIVEN: DATE: TODAY TIME: AM NEXT DOSE DUE: DATE: TODAY TIME: EARLY AFTERNOON Astepro (Azelastine Hcl) 205.5 Mcg/0.137 Ml Woodruff.pump 2 Spr NS PRN BID PRN NOT GIVEN TODAY NEXT DOSE DUE: DATE: TODAY TIME: IF AND WHEN NEEDED DATE: TODAY TIME: PM Furosemide 80 Mg Tablet 80 Mg PO DAILY LAST DOSE GIVEN: DATE: TODAY TIME: AM NEXT DOSE DUE: DATE: TOMORROW TIME: AM Hydrocodone-Apap 7.5-325 (Hydrocodone Bit/Acetaminophen) 1 Each Tablet 1 Tab PO PRN Q6HRS PRN LAST DOSE GIVEN: DATE: TODAY TIME: 5:17 AM NEXT DOSE DUE: DATE: TODAY TIME: IF AND WHEN NEEDED Klor-Con M20 (Potassium Chloride) 20 Meq Tab.er.prt 20 Meq PO BID LAST DOSE GIVEN: DATE: TODAY TIME: AM NEXT DOSE DUE: DATE: TODAY TIME: PM Montelukast Sodium Tablet (Montelukast Sodium) 10 Mg Tablet 10 Mg PO QHS LAST DOSE GIVEN: DATE: YESTERDAY TIME: AT BEDTIME NEXT DOSE DUE: DATE: TODAY TIME: AT BEDTIME Protonix (Pantoprazole Sodium) 40 Mg Tablet.dr 40 Mg PO DAILYAC LAST DOSE GIVEN: DATE: TODAY TIME: BEFORE BREAKFAST NEXT DOSE DUE: DATE: TOMORROW TIME: BEFORE BREAKFAST Dilantin (Phenytoin Sodium Extended) 100 Mg Capsule 400 Mg PO QHS LAST DOSE GIVEN: DATE: YESTERDAY TIME: AT BEDTIME NEXT DOSE DUE: DATE: TODAY TIME: AT BEDTIME Aspirin 81 Mg Tab.chew 81 Mg PO DAILY LAST DOSE GIVEN: DATE: TODAY TIME: AM NEXT DOSE DUE: DATE: TOMORROW TIME: AM I have reviewed the current psychotropics carefully including drug interactions. Risk benefit ratio favors no change other than as noted in my dictated progress note. Diagnosis: Problems: (1) Major depressive disorder, recurrent episode (2) Bipolar affective, mixed, severe (3) Anxiety disorder SMILEY BETH MD Aug 17, 2017 19:19
[2017-08-17 19:42] LABS: BASO % 1 % (0-3); EOS # 0.2 x10^3/uL (0.0-0.7); EOS % 2 % (0-3); HEMATOCRIT 37.1 % (36.0-47.0); HEMOGLOBIN 13.1 g/dL (12.0-15.5); LYMPH # 2.9 x10^3/uL (1.0-4.8); LYMPH % 37 % (24-48); MEAN CORPUSCULAR HEMOGLOBIN 32 pg (25-35); MEAN CORPUSCULAR HGB CONC 35 g/dL (31-37); MEAN CORPUSCULAR VOLUME 90 fL (79-100); MONO # 0.8 x10^3/uL (0.0-1.1); MONO % 10 % (0-9); NEUT # 3.8 x10^3uL (1.8-7.7); NEUT % 50 % (31-73); PLATELET COUNT 240 x10^3/uL (140-400); RED BLOOD COUNT 4.14 x10^6/uL (3.50-5.40); RED CELL DISTRIBUTION WIDTH 16.5 % (11.5-14.5); WHITE BLOOD COUNT 7.7 x10^3/uL (4.0-11.0)
[2017-08-17] MEDS: BUDESONIDE 0.5 MG/2 ML NEBU NEB SCH (20:00)
[2017-08-17] MEDS ORDERED: diazePAM 5 MG TABLET PO SCH (21:00)
[2017-08-17] MEDS ORDERED: POTASSIUM CHLORIDE 20 MEQ TABLET.ER. PO SCH (21:00)
[2017-08-17] MEDS: POTASSIUM CHLORIDE 20 MEQ TABLET.ER. PO SCH (21:00)
[2017-08-17] MEDS ORDERED: QUEtiapine 25 MG TABLET. PO SCH (21:00)
[2017-08-17] MEDS ORDERED: NYSTATIN TOPICAL POWDER 15GM BOTTLE. TP SCH (21:00)
[2017-08-17] MEDS: MONTELUKAST 10 MG TABLET. PO SCH (21:00)
[2017-08-17] MEDS: rifAXIMin 550 MG TABLET PO SCH (21:00)
[2017-08-17] MEDS: PHENYTOIN SODIUM EXTENDED 100 MG CAPSULE PO SCH (21:00)
[2017-08-18] MEDS: IV NORMAL SALINE 1,000ML 1,000 ML IV SCH ×3 (05:05→22:22)
[2017-08-18] MEDS: IPRATRPIUM/ALBUTEROL 0.5/2.5MG 3 ML NEBU. NEB SCH ×4 (05:20→20:39)
[2017-08-18] MEDS: BETHANECHOL CHLORIDE 10 MG TABLET PO SCH ×3 (07:30→17:58)
[2017-08-18] MEDS ORDERED: PANTOPRAZOLE 40 MG TABLET. PO SCH (07:30)
[2017-08-18] MEDS: BUDESONIDE 0.5 MG/2 ML NEBU NEB SCH ×2 (08:00→20:00)
[2017-08-18] MEDS: metFORMIN 500 MG TABLET PO SCH ×2 (08:00→17:59)
[2017-08-18] MEDS: HYDROmorphone PF 2 MG/ML VIAL IV PRN (08:02)
[2017-08-18] MEDS ORDERED: FUROSEMIDE 80 MG TABLET PO SCH (09:00)
[2017-08-18] MEDS ORDERED: DULoxetine HCL 20 MG CAPSULE.DR PO SCH (09:00)
[2017-08-18] MEDS: LACTULOSE 20 GM/30 ML SOLUTION. PO SCH ×4 (10:03→20:43)
[2017-08-18] MEDS: ASPIRIN 81 MG TAB.CHEW PO SCH (10:03)
[2017-08-18] MEDS: POTASSIUM CHLORIDE 20 MEQ TABLET.ER. PO SCH ×2 (10:03→20:45)
[2017-08-18] MEDS: PRIMIDONE 250 MG TABLET PO SCH (10:05)
[2017-08-18] MEDS: rifAXIMin 550 MG TABLET PO SCH ×2 (10:05→20:44)
[2017-08-18] MEDS: HYDROcodone/APAP 7.5/325MG 1 TAB TABLET PO PRN (10:13)
[2017-08-18] MEDS ORDERED: ALBUTEROL SULFATE 2.5 MG/3 ML NEBU. NEB PRN (10:15)
[2017-08-18] MEDS ORDERED: MORPHINE SULFATE 2 MG/ML DISP.SYRIN. IV PRN (10:15)
[2017-08-18 10:32] VITALS: BP 94/63
[2017-08-18] MEDS ORDERED: ELECTROLYTE (NON-ICU) PROTOCOL MC PRN (11:15)
[2017-08-18] MEDS: MORPHINE SULFATE 4 MG/ML DISP.SYRIN. IV PRN (12:14)
[2017-08-18] MEDS: ACARBOSE 50 MG TABLET PO SCH ×2 (12:26→17:59)
[2017-08-18] MEDS: VANCOMYCIN 125 MG/2.5 ML ORAL SOLUTION. PO SCH ×3 (13:25→20:44)
[2017-08-18] MEDS: LUBIPROSTONE 24 MCG CAPSULE PO SCH (17:59)
--- NOTE | 2017-08-18 18:43 | CONS ---
DATE OF CONSULTATION: 08/17/2017 This notes covers elements not covered in my initial note, 08/17/2017. IDENTIFYING DATA: The patient is a 67-year-old female, seen in bed 123, 1 [facility], [facility], for a psychiatric consult requested by Dr. Porter on account of the patient's significant symptoms of depression, hopelessness, worthlessness, refusing all treatments cares, labs draws, and just wanting to . Dr. Porter has informed the nursing staff, he feels patient's responses are a consequence of her being depressed and even though she has conferred with her and both of them are in agreement with her not proceeding with further cares and hospice has been consulted, but the question is whether she is making part of these decisions as a consequent to her mood symptoms. Additionally, she has had her ammonia elevated repeatedly in the past causing worsening confusion and she has refused to have the blood draw for the ammonia at this time and refusing lactulose as well. CHIEF COMPLAINT: "I just don't want any treatment. I don't want to do anything." The patient was speaking in a very low tone, barely audible, eyes closed in between off and on, but seemed to recognize me and knew me since have treated her in the past. HISTORY OF PRESENT ILLNESS: The patient has a history of major depressive disorder/bipolar disorder, depressed. She was an inpatient on the Psychiatry Service at [facility] and since then she has been followed outpatient. She presented directly after being evaluated by Dr. Porter but since being in the hospital, she is refusing all treatment and cares and lab draws. She denies suicidal ideation, but states she is tired of all the medical interventions, the day she gets diarrhea on the lactulose, unable to take it and without this, her ammonia arises fairly rapidly worsening her confusion. She understands all of these. The patient presented with nausea, vomiting. PAST PSYCHIATRIC HISTORY: Positive for depression, bipolar disorder, cognitive deficits consequent to raised ammonia levels. MEDICA HISTORY: Positive for COPD exacerbation, vestibular neuritis, acute respiratory distress syndrome, nausea, vomiting, history of recurrent UTIs, hepatic encephalopathy. FAMILY HISTORY: Noncontributory. CURRENT PSYCHOTROPICS: Valium 5 mg at bedtime was discontinued, Cymbalta 20 mg a day. She is on lactulose. Seroquel was discontinued at 75 mg at bedtime. CODE STATUS: DNR. DRUG ALLERGIES: PENICILLIN, SULFA, LOVENOX. SOCIAL HISTORY: The patient is , lives at home with her . No alcohol or drug abuse history noted. MENTAL STATUS EXAMINATION: The patient was seen individually in her room. The patient is lying in bed, somewhat withdrawn, eyes closed, frequently, initially refusing all labs and medications, but after I talked to her, she is agreeable to having an ammonia level done. She seemed to recognize me. Speech, low in rate and rhythm, low in volume, often responses monosyllabic. She minimizes being depressed, but affect is depressed. No clear hallucinations noted. No homicidal ideation. She states she is tired of all the medical condition she has and nonresponse to treatment and therefore does want to go through with anything more but again after I talked to her at some length, she is agreeable to having labs were drawn done, specifically for the ammonia and whatever else could be drawn earlier today. She is oriented x 3. Short term memory does have some impairment. Attention span somewhat short. Reportedly, hospice has been consulted as well in the interim. IMPRESSION: Major depressive disorder, recurrent; bipolar 1 disorder, depressed; anxiety disorder, unspecified; cognitive disorder, unspecified. PLAN: The patient is currently on Cymbalta 20 mg a day. We will increase the Cymbalta to 40 mg a day, add Wellbutrin-XL 150 mg a day in the morning, have the labs drawn as the patient is agreeable to this and then we will have to decide depending on how she does once we get the ammonia level back and Dr. Porter decides how to proceed further medically. Dr. Porter, thank you for the opportunity to participate in your patient's care. We will follow with you. MAN Rivka BETH MD DR: CHRIS/elisa JOB#: [id number] / [id number]
[2017-08-18] MEDS: PHENYTOIN SODIUM EXTENDED 100 MG CAPSULE PO SCH (20:44)
[2017-08-18] MEDS: LACTOBACILLUS RHAMNOSUS GG 1 CAPSULE. PO SCH (20:45)
[2017-08-18] MEDS: MONTELUKAST 10 MG TABLET. PO SCH (20:45)
[2017-08-18 22:21] LABS: CREATININE 2.4 mg/dL (0.6-1.0); GFR 20.1
[2017-08-18 22:26] LABS: POTASSIUM 2.5 mmol/L (3.5-5.1)
[2017-08-18] MEDS: POTASSIUM CHLORIDE 20 MEQ/15 ML ORAL LIQUID. FT SCH (23:10)
--- NOTE | 2017-08-19 02:30 | PN ---
DATE: 08/18/2017 SUBJECTIVE: The patient is resting fairly comfortably. We noted on the H and P that her ammonia level the day before was over 176 since she obviously is feeling very depressed and made some statements that were not appropriate as far as ending life. Anyway, after a long discussion with the family, she agreed to take her medications and certainly is not a candidate for hospice. She does have a curable situation. PHYSICAL EXAMINATION: VITAL SIGNS: Blood pressure now is 94/63, respiratory rate 16, pulse 97, afebrile. The patient is alert, still very depressed, very tearful. LUNGS: Diminished, but clear. CARDIOVASCULAR: Stable. ABDOMEN: Soft, nontender. PLAN: We will go ahead and adjust her medication. The big thing was her potassium was low at 2.8. Labs were ordered for today, but apparently they have not still been obtained and she is on a protocol to replace potassium ____ low potassium can increase the ammonia levels. In any case, several other factors and her labs show that the patient can be adjusted on her medications. She is being seen by Dr. Barron for severe depression and the family totally agrees with the course of therapy. She has appointments later this week with [facility] and we will make further evaluation on her as we progress. IMPRESSION: Metabolic encephalopathy. SCOOTER HOPKINS MD DR: NGOIZ/elisa JOB#: [id number] / [id number]
[2017-08-19] MEDS: POTASSIUM CHLORIDE 20 MEQ/15 ML ORAL LIQUID. FT SCH ×3 (03:00→13:00)
[2017-08-19] MEDS: IPRATRPIUM/ALBUTEROL 0.5/2.5MG 3 ML NEBU. NEB SCH ×3 (05:19→17:00)
[2017-08-19 06:11] LABS: CALCIUM 8.2 mg/dL (8.5-10.1); CREATININE 2.6 mg/dL (0.6-1.0); GFR 18.4
[2017-08-19 06:14] LABS: POTASSIUM 2.3 mmol/L (3.5-5.1)
[2017-08-19] MEDS: POTASSIUM CHLORIDE 10 MEQ TABLET.ER. PO SCH ×2 (08:00→12:00)
[2017-08-19] MEDS: IV NORMAL SALINE 1,000ML 1,000 ML IV SCH (08:49)
[2017-08-19] MEDS: VANCOMYCIN 125 MG/2.5 ML ORAL SOLUTION. PO SCH ×2 (08:50→13:00)
[2017-08-19] MEDS: metFORMIN 500 MG TABLET PO SCH (08:50)
[2017-08-19] MEDS: ASPIRIN 81 MG TAB.CHEW PO SCH (08:50)
[2017-08-19] MEDS: BETHANECHOL CHLORIDE 10 MG TABLET PO SCH ×3 (08:50→14:22)
[2017-08-19] MEDS: LACTOBACILLUS RHAMNOSUS GG 1 CAPSULE. PO SCH (08:50)
[2017-08-19] MEDS: LACTULOSE 20 GM/30 ML SOLUTION. PO SCH ×2 (08:50→13:00)
[2017-08-19] MEDS: LUBIPROSTONE 24 MCG CAPSULE PO SCH (08:51)
[2017-08-19] MEDS: rifAXIMin 550 MG TABLET PO SCH (08:51)
[2017-08-19] MEDS: ACARBOSE 50 MG TABLET PO SCH ×2 (08:51→12:00)
[2017-08-19] MEDS ORDERED: DULoxetine HCL 60 MG CAPSULE.DR PO SCH (09:00)
[2017-08-19] MEDS ORDERED: POTASSIUM CHLORIDE 20 MEQ/15 ML ORAL LIQUID. FT ONE (09:00)
[2017-08-19] MEDS ORDERED: FUROSEMIDE 80 MG TABLET PO SCH (09:00)
[2017-08-19] MEDS ORDERED: FUROSEMIDE 40 MG TABLET PO SCH (09:00)
[2017-08-19] MEDS ORDERED: buPROPion XL 150 MG TAB.ER.24H PO SCH (09:00)
[2017-08-19] MEDS ORDERED: ARIPiprazole 2 MG TABLET PO SCH (09:00)
[2017-08-19] MEDS ORDERED: ARIPiprazole 5 MG TABLET PO SCH (09:00)
--- NOTE | 2017-08-19 10:29 | PN ---
DATE: 08/18/2017 PSYCHIATRIC PROGRESS NOTE This is a late entry, date of service 08/18/2017 covers elements not covered in my initial note 08/18/2017. SUBJECTIVE: I met with the patient evening of 08/18/2017 and discussed with nursing staff. The patient has agreed to having a PICC line placed per nursing report and Dr. Porter apparently has asked to the patient and she is agreeable to some more of her treatments, though to the nursing staff she has expressed that she is unsure if she should go ahead with accepting the treatment or just go on hospice care. She certainly is depressed, which could be contributing to her vacillating decisions. She has been somewhat tired, withdrawn. Ambulation impaired. MENTAL STATUS EXAM: The patient somewhat sedated, but per nursing report still depressed, but not actively wanting to give up on life and go onto hospice care, though she goes back and forth on this. When awake, speech is low in rate and rhythm, low in volume, but goal directed in her thought processes. No active suicidal or homicidal ideation. Mood and affect remains depressed. Cognitively, she does have some short-term memory deficits. IMPRESSION: Major depressive disorder with psychotic features, bipolar 1 disorder, depressed with psychotic features; cognitive disorder, unspecified. PLAN: From a psychiatric standpoint increase Cymbalta from 20-60 mg a day and augment with Abilify 2 mg a day, which we will increase to 5 mg a day and add Wellbutrin XL 150 mg a day in the morning. We will make further changes depending on her progress. SMILEY BETH MD DR: CHRIS/elisa JOB#: [id number] / [id number]
--- NOTE | 2017-08-19 10:39 | PN ---
DATE: 08/19/2017 SUBJECTIVE: The patient has been noncompliant with some of her medications and fluids. Came in early this morning to discuss with her, told her the need to start the IV fluids as her blood pressure has come down (NC). Her potassium has gone down to 2.5 (NC) because she refused to take her medication; however, I have talked to her and convinced her that she needs to take her potassium and start some IV fluids to get her blood pressure up and her potassium up respectively. The patient is actually a little bit more alert this morning than she has been. OBJECTIVE: VITAL SIGNS: Blood pressure is approximately 95/60, respiratory rate 18, afebrile, and pulse of 97. GENERAL: The patient is more alert than she has been. LUNGS: Clear. CARDIOVASCULAR: Stable. We had a lengthy talk, but she is feeling somewhat better. Make note of Dr. Barron's note. IMPRESSION: Hepatic encephalopathy, hypokalemia, noncompliance, hypotension with numerous adjustments to some of her medications. We will try to get her off as many as possible. Continue with the lactulose and lowering her ammonia level which I know is already coming down significantly. SCOOTER HOPKINS MD DR: NGOZI/elisa JOB#: [id number] / [id number]
[2017-08-19] MEDS: BUDESONIDE 0.5 MG/2 ML NEBU NEB SCH (11:23)
[2017-08-19 11:33] VITALS: BP 124/71
[2017-08-19] MEDS: ONDANSETRON ODT 4 MG TAB.RAPDIS PO PRN (12:35)
[2017-08-19] MEDS: MORPHINE SULFATE 4 MG/ML DISP.SYRIN. IV PRN ×3 (13:03→20:38)
[2017-08-19] MEDS ORDERED: LORazepam 2 MG/ML VIAL IV PRN (14:15)
[2017-08-19] MEDS ORDERED: ONDANSETRON ODT 4 MG TAB.RAPDIS PO PRN (14:30)
[2017-08-19] MEDS ORDERED: ONDANSETRON PF 4 MG/2 ML VIAL. IV PRN (14:30)
[2017-08-19] MEDS ORDERED: SCOPOLAMINE 1.5MG PATCH. TD SCH (14:30)
[2017-08-19] MEDS ORDERED: MORPHINE SULFATE 4 MG/ML DISP.SYRIN. ONE (15:42)
--- NOTE | 2017-08-19 18:02 | PDOC ---
Exam Note: Morales Note: Please also refer to the separate dictated note~for this date of service dictated separately.~Patient seen individually. Discussed the patient with Nursing staff reviewed the chart.~Reviewed interim history and current functioning. Reviewed vital signs,~Labs/ Radiology~and current medications noted below. Continue current treatment with the changes noted in the dictated addendum note Assessment: Vital Signs: Vital Signs Date Time Temp Pulse Resp B/P (MAP) Pulse Ox O2 Delivery O2 Flow Rate FiO2 08/19/17 16:28 94 Nasal Cannula 2.0 08/19/17 11:33 98.4 100 18 124/71 (88) I&O Intake and Output 08/19/17 07:00 Intake Total 60 ml Output Total 2 ml Balance 58 ml Intake Oral 60 ml Output Urine Total 2 ml # Voids 2 # Bowel Movements 2 Labs: Laboratory Tests Test 08/18/17 22:00 08/19/17 05:48 Sodium Level 144 mmol/L (136-145) 142 mmol/L (136-145) Potassium Level 2.5 mmol/L (3.5-5.1) *L 2.3 mmol/L (3.5-5.1) *L Chloride Level 98 mmol/L (98-107) 99 mmol/L (98-107) Carbon Dioxide Level 30 mmol/L (21-32) 26 mmol/L (21-32) Anion Gap 16 (6-14) H 17 (6-14) H Blood Urea Nitrogen 30 mg/dL (7-20) H 31 mg/dL (7-20) H Creatinine 2.4 mg/dL (0.6-1.0) H 2.6 mg/dL (0.6-1.0) H Estimated GFR (Cockcroft-Gault) 20.1 18.4 Glucose Level 121 mg/dL (70-99) H 120 mg/dL (70-99) H Calcium Level 8.0 mg/dL (8.5-10.1) L 8.2 mg/dL (8.5-10.1) L Ammonia 65 mcmol/L (11-34) H 41 mcmol/L (11-34) H Current Medications: Meds: Current Medications Acetaminophen (Tylenol) 650 mg PRN Q6HRS PRN PO PAIN / TEMP; Start 08/17/17 at 15:45; Stop 08/17/17 at 17:22; Status DC Albuterol Sulfate (Ventolin) 2.5 mg QID NEB ; Start 08/17/17 at 17:00; Stop at 17:00; Status DC Albuterol Sulfate (Ventolin Hfa) 1 puff PRN QID PRN IH SHORTNESS OF BREATH; Start 08/17/17 at 15:45; Status UNV Aspirin (Gabbi Aspirin) 325 mg PRN Q6HRS PRN PO PAIN; Start 08/17/17 at 15:45; Stop 08/17/17 at 17:22; Status DC Diazepam (Valium) 5 mg HS PO ; Start 08/17/17 at 21:00; Stop 08/17/17 at 21:00; Status DC Gabapentin (Neurontin) 300 mg QID PO ; Start 08/17/17 at 17:00; Stop 08/17/17 at 17:22; Status DC Acetaminophen/ Hydrocodone Bitart (Lortab 7.5/325) 1 tab PRN Q6HRS PRN PO PAIN Last administered on 08/18/17at 10:13; Start 08/17/17 at 15:45; Stop 08/18/17 at 10:26; Status DC Albuterol/ Ipratropium (Duoneb) 3 ml QID NEB Last administered on 08/19/17at 11: 23; Start 08/17/17 at 17:00 Lubiprostone (Amitiza) 24 mcg BIDWMEALS PRN PO CONSTIPATION; Start 08/17/17 at 15:45; Stop 08/17/17 at 17:22; Status DC Multi-Ingredient Ointment (Analgesic [place]) 1 tosin PRN QID PRN TP MUSCLE PAIN; Start 08/17/17 at 15:45; Stop 08/17/17 at 17:22; Status DC Nystatin (Nystop) 1 tosin BID TP ; Start 08/17/17 at 21:00; Stop 08/17/17 at 21:00 ; Status DC Ondansetron HCl (Zofran Odt) 1 mg PRN Q4HRS PRN PO NAUSEA/VOMITING Last administered on 08/19/17at 12:35; Start 08/17/17 at 15:45; Stop 08/19/17 at 14:23 ; Status DC Potassium Chloride (Klor-Con) 20 meq TID PO ; Start 08/17/17 at 21:00; Stop at 21:00; Status DC Rifaximin (Xifaxan) 550 mg BID PO Last administered on 08/19/17at 08:51; Start 08/17/17 at 21:00; Stop 08/19/17 at 14:23; Status DC Aspirin (Children'S Aspirin) 81 mg DAILY PO Last administered on 08/19/17at 08: 50; Start 08/18/17 at 09:00; Stop 08/19/17 at 14:23; Status DC Azelastine HCl (Astelin) 2 spray PRN BID PRN NS CONGESTION; Start 08/17/17 at 15:45; Stop 08/19/17 at 14:23; Status DC Bethanechol Chloride (Urecholine) 10 mg TIDAC PO Last administered on at 08:50; Start 08/17/17 at 16:30; Stop 08/19/17 at 14:23; Status DC Duloxetine HCl (Cymbalta) 20 mg DAILY PO Last administered on 08/18/17at 10:03; Start 08/18/17 at 09:00; Stop 08/18/17 at 16:21; Status DC Budesonide (Pulmicort) 0.5 mg RTBID NEB Last administered on 08/19/17at 11:23; Start 08/17/17 at 20:00 Furosemide (Lasix) 80 mg DAILY PO ; Start 08/18/17 at 09:00; Stop 08/18/17 at 16 :21; Status DC Lactulose (Lactulose) 20 gm QID PO Last administered on 08/18/17at 10:03; Start 08/17/17 at 17:00; Stop 08/18/17 at 10:26; Status DC Meclizine HCl (Antivert) 25 mg PRN QID PRN PO DIZZINESS; Start 08/17/17 at 15: 45; Stop 08/17/17 at 17:22; Status DC Metformin HCl (Glucophage) 500 mg BIDWMEALS PO Last administered on 08/19/17at 08:50; Start 08/17/17 at 17:00; Stop 08/19/17 at 14:23; Status DC Montelukast Sodium (Singulair) 10 mg QHS PO Last administered on 08/18/17at 20: 45; Start 08/17/17 at 21:00; Stop 08/19/17 at 14:23; Status DC Pantoprazole Sodium (Protonix) 40 mg DAILYAC PO ; Start 08/18/17 at 07:30; Stop 08/18/17 at 11:10; Status DC Phenytoin Sodium (Dilantin) 400 mg QHS PO Last administered on 08/18/17at 20:44 ; Start 08/17/17 at 21:00; Stop 08/19/17 at 05:19; Status DC Primidone (Mysoline) 125 mg QID PO Last administered on 08/18/17at 10:05; Start 08/17/17 at 17:00; Stop 08/18/17 at 10:26; Status DC Quetiapine Fumarate (SEROquel) 75 mg QHS PO ; Start 08/17/17 at 21:00; Stop at 21:00; Status DC Sodium Chloride 1,000 ml @ 100 mls/hr Q10H IV Last administered on 08/19/17at 08:49; Start 08/17/17 at 15:45; Stop 08/19/17 at 14:23; Status DC Albuterol Sulfate (Ventolin) 2.5 mg QID PRN NEB SHORTNESS OF BREATH; Start at 16:15; Stop 08/17/17 at 17:22; Status DC Potassium Chloride (KCl Oral Soln) 40 meq Q4H FT ; Start 08/17/17 at 16:30; Stop 08/17/17 at 20:31; Status DC Potassium Chloride (Klor-Con) 20 meq BID PO Last administered on 08/18/17at 20: 45; Start 08/17/17 at 21:00; Stop 08/18/17 at 22:55; Status DC Hydromorphone HCl (Dilaudid) 2 mg PRN Q4HRS PRN IV PAIN Last administered on at 08:02; Start 08/17/17 at 18:15; Stop 08/18/17 at 10:36; Status DC Lactulose (Lactulose) 30 gm QID PO Last administered on 08/19/17at 08:50; Start 08/18/17 at 13:00; Stop 08/19/17 at 14:23; Status DC Albuterol Sulfate (Ventolin) 2.5 mg PRN Q6HRS PRN NEB SHORTNESS OF BREATH; Start 08/18/17 at 10:15 Lubiprostone (Amitiza) 24 mcg BIDWMEALS PO Last administered on 08/19/17at 08:51 ; Start 08/18/17 at 17:00; Stop 08/19/17 at 14:23; Status DC Morphine Sulfate (Morphine 2mg Syringe) 2 mg PRN Q2HR PRN IV PAIN; Start at 10:15; Stop 08/18/17 at 11:59; Status DC Info (Non-Icu Electrolyte Protocol) 1 ea CONT PRN PRN MC PER PROTOCOL; Start at 11:15; Stop 08/19/17 at 14:23; Status DC Acarbose (Precose) 50 mg TIDWMEALS PO Last administered on 08/19/17at 08:51; Start 08/18/17 at 12:00; Stop 08/19/17 at 14:23; Status DC Lactobacillus Rhamnosus (Culturelle) 1 cap BID PO Last administered on at 08:50; Start 08/18/17 at 21:00; Stop 08/19/17 at 14:23; Status DC Vancomycin HCl (Vancomycin Oral Solution) 125 mg [id number] PO Last administered on 08/19/17at 08:50; Start 08/18/17 at 13:00; Stop 08/19/17 at 14:23; Status DC Morphine Sulfate (Morphine 4mg Syringe) 2 mg PRN Q2HR PRN IV PAIN Last administered on 08/19/17at 13:03; Start 08/18/17 at 11:59; Stop 08/19/17 at 14:23 ; Status DC Duloxetine HCl (Cymbalta) 60 mg DAILY PO Last administered on 08/19/17at 08:50; Start 08/19/17 at 09:00; Stop 08/19/17 at 14:23; Status DC Furosemide (Lasix) 40 mg DAILY PO ; Start 08/19/17 at 09:00; Stop 08/19/17 at 09 :00; Status DC Aripiprazole (Abilify) 2 mg DAILY PO ; Start 08/19/17 at 09:00; Stop 08/19/17 at 09:00; Status DC Furosemide (Lasix) 40 mg DAILY PO ; Start 08/19/17 at 09:00; Stop 08/19/17 at 09 :00; Status DC Potassium Chloride (KCl Oral Soln) 40 meq Q4H FT ; Start 08/18/17 at 23:00; Stop 08/19/17 at 03:02; Status DC Phenytoin Sodium (Dilantin) 300 mg QHS PO ; Start 08/19/17 at 21:00; Stop at 21:00; Status DC Potassium Chloride (Klor-Con) 20 meq TIDWMEALS PO ; Start 08/19/17 at 08:00; Stop 08/19/17 at 14:23; Status DC Potassium Chloride (KCl Oral Soln) 40 meq 1X ONCE FT Last administered on 08/19at 09:00; Start 08/19/17 at 09:00; Stop 08/19/17 at 09:01; Status DC Potassium Chloride (KCl Oral Soln) 40 meq Q4H FT ; Start 08/19/17 at 09:00; Stop 08/19/17 at 13:01; Status DC Bupropion HCl (Wellbutrin Xl) 150 mg DAILY PO ; Start 08/19/17 at 09:00; Stop at 14:23; Status DC Aripiprazole (Abilify) 5 mg DAILY PO ; Start 08/19/17 at 09:00; Stop 08/19/17 at 14:23; Status DC Ondansetron HCl (Zofran Odt) 4 mg PRN Q4HRS PRN PO NAUSEA/VOMITING; Start 08/19 at 14:30; Stop 08/19/17 at 14:30; Status DC Lorazepam (Ativan) 2 mg PRN Q4HRS PRN IV ANXIETY / AGITATION; Start 08/19/17 at 14:15 Ondansetron HCl (Zofran) 4 mg PRN Q6HRS PRN IV NAUSEA/VOMITING; Start 08/19/17 at 14:30 Scopolamine (Transderm-Scop) 1 patch Q3DAYS TD Last administered on 08/19/17at 15:45; Start 08/19/17 at 14:30 Morphine Sulfate (Morphine 4mg Syringe) 2 mg PRN Q2HR PRN IV PAIN; Start at 15:45 Morphine Sulfate (Morphine 4mg Syringe) 4 mg STK-MED ONCE .ROUTE Last administered on 08/19/17at 15:45; Start 08/19/17 at 15:42; Stop 08/19/17 at 15:43 ; Status DC Active Scripts Active Ondansetron Odt (Ondansetron) 4 Mg Tab.rapdis 4 Mg PO PRN Q4HRS PRN Bethanechol Chloride 10 Mg Tablet 10 Mg PO TIDAC Metformin Hcl 500 Mg Tablet 500 Mg PO BIDWMEALS 90 Days Reported Xifaxan (Rifaximin) 550 Mg Tablet 1 Tab PO BID LAST DOSE GIVEN: DATE: TODAY TIME: AM NEXT DOSE DUE: DATE: TODAY TIME: PM Cymbalta (Duloxetine Hcl) 20 Mg Capsule.dr 20 Mg PO DAILY LAST DOSE GIVEN: DATE:TODAY TIME: AM NEXT DOSE DUE: DATE: TOMORROW TIME: AM Duoneb 0.5-3(2.5) Mg/3 Ml (Albuterol/Ipratropium) 3 Ml Ampul.neb 3 Ml NEB QID LAST DOSE GIVEN: DATE: TODAY TIME: AM NEXT DOSE DUE: DATE: TODAY TIME: EARLY AFTERNOON Lactulose 10 Gm/15 Ml Solution 20 Gm PO QID LAST DOSE GIVEN: DATE: TODAY TIME: AM NEXT DOSE DUE: DATE: TODAY TIME: EARLY AFTERNOON Trelegy Ellipta 100-62.5-25 (Fluticasone/Umeclidin/Vilanter) 1 Each Blst.w.dev 1 Each IH DAILY NOT GIVEN IN THE HOSPITAL NEXT DOSE DUE: DATE: RESTART TODAY TIME: WHEN YOU GET HOME Primidone 50 Mg Tablet 125 Mg PO QID LAST DOSE GIVEN: DATE: TODAY TIME: AM NEXT DOSE DUE: DATE: TODAY TIME: EARLY AFTERNOON Astepro (Azelastine Hcl) 205.5 Mcg/0.137 Ml [place].pump 2 Spr NS PRN BID PRN NOT GIVEN TODAY NEXT DOSE DUE: DATE: TODAY TIME: IF AND WHEN NEEDED DATE: TODAY TIME: PM Furosemide 80 Mg Tablet 80 Mg PO DAILY LAST DOSE GIVEN: DATE: TODAY TIME: AM NEXT DOSE DUE: DATE: TOMORROW TIME: AM Hydrocodone-Apap 7.5-325 (Hydrocodone Bit/Acetaminophen) 1 Each Tablet 1 Tab PO PRN Q6HRS PRN LAST DOSE GIVEN: DATE: TODAY TIME: 5:17 AM NEXT DOSE DUE: DATE: TIME: IF AND WHEN NEEDED Klor-Con M20 (Potassium Chloride) 20 Meq Tab.er.prt 20 Meq PO BID LAST DOSE GIVEN: DATE: TIME: AM NEXT DOSE DUE: DATE: TODAY TIME: PM Montelukast Sodium Tablet (Montelukast Sodium) 10 Mg Tablet 10 Mg PO QHS LAST DOSE GIVEN: DATE: YESTERDAY TIME: AT BEDTIME NEXT DOSE DUE: DATE: TODAY TIME: AT BEDTIME Protonix (Pantoprazole Sodium) 40 Mg Tablet.dr 40 Mg PO DAILYAC LAST DOSE GIVEN: DATE: TODAY TIME: BEFORE BREAKFAST NEXT DOSE DUE: DATE: TOMORROW TIME: BEFORE BREAKFAST Dilantin (Phenytoin Sodium Extended) 100 Mg Capsule 400 Mg PO QHS LAST DOSE GIVEN: DATE: YESTER TIME: AT BEDTIME NEXT DOSE DUE: DATE: TIME: AT BEDTIME Aspirin 81 Mg Tab.chew 81 Mg PO DAILY LAST DOSE GIVEN: DATE: TODAY TIME: AM NEXT DOSE DUE: DATE: TOMORROW TIME: AM I have reviewed the current psychotropics carefully including drug interactions. Risk benefit ratio favors no change other than as noted in my dictated progress note. Diagnosis: Problems: (1) Bipolar affective, mixed, severe (2) Major depressive disorder, recurrent episode (3) Anxiety disorder (4) Suicidal ideation SMILEY BETH MD Aug 19, 2017 18:02
[2017-08-19] MEDS ORDERED: BUDESONIDE 0.5 MG/2 ML NEBU NEB PRN (18:30)
[2017-08-19] MEDS ORDERED: IPRATRPIUM/ALBUTEROL 0.5/2.5MG 3 ML NEBU. NEB PRN (18:30)
[2017-08-19] MEDS ORDERED: PHENYTOIN SODIUM EXTENDED 100 MG CAPSULE PO SCH (21:00)
[2017-08-20 06:10] VITALS: BP 121/74
[2017-08-20] MEDS: MORPHINE SULFATE 4 MG/ML DISP.SYRIN. IV PRN ×3 (06:14→11:55)
[2017-08-20] MEDS ORDERED: BISACODYL 10 MG SUPP.RECT PR ONE (09:30)
--- NOTE | 2017-08-20 20:47 | PN ---
DATE: 08/19/2017 This is a late entry, 08/19/2017, covers the elements not covered in my initial note. SUBJECTIVE: I met with the patient in the evening and also with her and daughters and other family, who were by her bedside. Per nursing report, the patient made a decision to go on hospice care and Dr. Porter has met with the patient and the patient's family and they are all in agreement with this decision by the patient. She is depressed and had increased her Cymbalta, added Wellbutrin to augment it, and Abilify to augment it as well, but at this stage, she is refusing all medications in the family. We agreed to transfer her to [facility] on hospice care starting 08/20/2017. MENTAL STATUS EXAM: The patient is in bed, eyes closed, family is all around her, I met with the and he was tearful, somewhat emotional, but accepting of her decision as is the entire family. IMPRESSION: Unchanged from initial note. PLAN: As noted above and decided by Dr. Porter. SMILEY BETH MD DR: CHRIS/elisa JOB#: [id number] / [id number]
== END 2017-08-20 15:59 | DRG 441 ==
LOC: 1 SOUTH 13:38
PROVIDERS: ADMIT Family Medicine; ATTEND Family Medicine
PROC: 02HV33Z Insertion of Infusion Device into Superior Vena Cava, Percutaneous Approach (ICD-10-PCS; principal; 2017-08-18)
PROC: B548ZZA Ultrasonography of Superior Vena Cava, Guidance (ICD-10-PCS; 2017-08-18)
DX: K72.90 Hepatic failure, unspecified without coma (principal); G93.41 Metabolic encephalopathy; N17.0 Acute kidney failure with tubular necrosis; N18.4 Chronic kidney disease, stage 4 (severe); R45.851 Suicidal ideations; F31.63 Bipolar disorder, current episode mixed, severe, without psychotic features; F41.9 Anxiety disorder, unspecified; F09 Unspecified mental disorder due to known physiological condition; I95.9 Hypotension, unspecified; E87.6 Hypokalemia; E78.00 Pure hypercholesterolemia, unspecified; E11.22 Type 2 diabetes mellitus with diabetic chronic kidney disease; Z66 Do not resuscitate; Z51.5 Encounter for palliative care; Z91.14 Patient's other noncompliance with medication regimen; Z88.0 Allergy status to penicillin; Z88.2 Allergy status to sulfonamides; Z88.1 Allergy status to other antibiotic agents; Z87.440 Personal history of urinary (tract) infections; Z91.19 Patient's noncompliance with other medical treatment and regimen; Z90.710 Acquired absence of both cervix and uterus; Z86.711 Personal history of pulmonary embolism
CPT/HCPCS: 36415; 36569; 80048; 80053; 82140; 85025; 94640; J1170; J2060; J2270; J2405; J7620; J7626; Q0162; J7030